=== PATIENT | male | born 1945 | race Caucasian/White ===

== ENCOUNTER → 2016-09-05 | Outpatient (CLI) | payer MEDICARE ==
[2016-09-05 17:20] LABS: Blood Urea Nitrogen 23 mg/dL (9-20); Non-African American GFR(MDRD) >60 (>60 ml/min/1.73 sqM)
--- NOTE | 2016-09-05 20:44 | CT ---
EXAMINATION TYPE: CT chest wo/w con DATE OF EXAM: 09/05/2016 COMPARISON: 05/05/2014 HISTORY: 70-year-old male complains of new onset difficulty breathing. Patient has a history of mant le cell lymphoma. TECHNIQUE: Contiguous axial scanning of the chest before and after the administration of 100 mL of Om nipaque 300. Coronal/sagittal reconstructions performed. CT DLP: 1156mGycm. Automatic exposure control utilized for a dose reduction. FINDINGS: The heart is normal size without pericardial effusion. Ascending aorta is ectatic at 3.7 cm with conventional arch vessel branching anatomy. Mild atheroscle rotic arch calcifications. No thoracic lymphadenopathy. Evaluation of the lungs shows mild diffuse bronchial wall thickening, similar to slightly increased a s compared to prior exam. There is a tiny 4 mm groundglass nodule in the right lower lobe axial image 36. No consolidation or pleural effusion. Tiny hiatal hernia. Stable 1.5 cm cyst in the left hepatic dome. Small layering calculi within the nondistended gallbladd er. Otherwise, visualized upper abdomen shows no gross abnormality. Bones: Endplate spondylosis mid to lower thoracic spine. Degenerative disc disease lower thoracic spi ne. No osseous destructive process. IMPRESSION: 1. Tiny 4 mm groundglass focus in the right lower lobe suggests a small nonspecific area of inflammat ion. No infiltrate seen. 2. Mild diffuse bronchial wall thickening could reflect bronchitis or chronic asthma. 3. Cholelithiasis incidentally seen.
== END | disposition home or self-care (01) ==
LOC: RADCTMAIN 16:40
PROVIDERS: ATTEND Internal Medicine Geriatric Medicine
DX: C83.19 Mantle cell lymphoma, extranodal and solid organ sites (principal); R91.8 Other nonspecific abnormal finding of lung field; J98.09 Other diseases of bronchus, not elsewhere classified
CPT/HCPCS: 82565; 84520; 71270; 36415; Q9967

== ENCOUNTER 2017-06-24 19:55 | Emergency (ER) | payer MEDICARE ==
[2017-06-24] MEDS ORDERED: IPRATROPIUM-ALBUTEROL 3 ML NEB INHALATION STA (20:15)
--- NOTE | 2017-06-24 20:19 | ED ---
SOB HPI - General Chief Complaint: Shortness of Breath Stated Complaint: GIRMA Time Seen by Provider: 06/24/17 20:00 Source: patient, family, RN notes reviewed Mode of arrival: ambulatory Limitations: no limitations - History of Present Illness Initial Comments: This is a 70-year-old male with a history of lymphoma status post last chemo 3 years ago history of COPD nonsmoker who states he's had intermittent episode of coughing and off last week sometime better sometimes worse he is on a regimen of doxycycline and steroids ALLERGY and his physician of arranged for the past several days ovaries getting worse not getting better he is coughing up anywhere from clear to green phlegm shortness of breath some exertional dyspnea no overt chest pain except for in the left anterior chest wall he can pinpoint area that hurts when he pushes on it. No nausea vomiting abdominal pain or other symptoms reported at this time. MD Complaint: shortness of breath, cough - Related Data Home Medications Medication Instructions Recorded Confirmed ALPRAZolam [Xanax] 0.25 mg PO HS PRN 01/12/14 06/24/17 Meloxicam 15 mg PO DAILY 01/12/14 06/24/17 Albuterol Inhaler [Ventolin 1 - 2 puff INHALATION RT-QID PRN 06/24/17 06/24/17 Inhaler] Budesonide/Formoterol Fumarate 2 puff INHALATION BID 06/24/17 06/24/17 [Symbicort 160-4.5 Mcg Inhaler] Cholecalciferol (Vitamin D3) 2,000 unit PO DAILY 06/24/17 06/24/17 [Vitamin D3] Glucosam/Amador-Msm1/C/Julio/Bosw 1 tab PO DAILY 06/24/17 06/24/17 [Glucosamine-Chondroitin Tablet] Metoprolol Tartrate [Lopressor] 25 mg PO BID 06/24/17 06/24/17 Multivit-Min/FA/Lycopen/Lutein 1 tab PO DAILY 06/24/17 06/24/17 [Centrum Silver Men Tablet] Previous Rx's Medication Instructions Recorded Ipratropium/Albuterol Sulfate 1 puff INHALATION QID #1 inhaler 06/25/17 [Combivent Respimat Inhaler] methylPREDNISolone Dose Pack 4 mg PO DIRECTED #21 package 06/25/17 [Medrol Dose Pack] Allergies Allergy/AdvReac Type Severity Reaction Status Date / Time Penicillins Allergy Severe Rash/Hives Verified 06/24/17 20:23 benzonatate Allergy Dyspnea Verified 06/24/17 20:23 [From Harper Yanez] Review of Systems ROS Statement: Those systems with pertinent positive or pertinent negative responses have been documented in the HPI. ROS Other: All systems not noted in ROS Statement are negative. Past Medical History Past Medical History: Atrial Fibrillation, Cancer, COPD, Osteoarthritis (OA) Additional Past Medical History / Comment(s): lymphoma, History of Any Multi-Drug Resistant Organisms: None Reported Past Surgical History: Hernia Repair Past Psychological History: No Psychological Hx Reported Smoking Status: Never smoker Past Alcohol Use History: Occasional Past Drug Use History: None Reported General Exam - General Exam Comments Initial Comments: This is a well-developed well-nourished awake alert oriented times 3 male Limitations: no limitations General appearance: alert, in no apparent distress Head exam: Present: atraumatic, normocephalic, normal inspection Eye exam: Present: normal appearance, PERRL, EOMI. Absent: scleral icterus, conjunctival injection, periorbital swelling ENT exam: Present: normal exam, mucous membranes moist Neck exam: Present: normal inspection. Absent: tenderness, meningismus, lymphadenopathy Respiratory exam: Present: chest wall tenderness (Tennis palpation along the anterior lateral left ribs no step-off or crepitation no lesions noted.), decreased breath sounds. Absent: respiratory distress, wheezes, rales, rhonchi , stridor Cardiovascular Exam: Present: regular rate, normal rhythm, normal heart sounds. Absent: systolic murmur, diastolic murmur, rubs, gallop, clicks GI/Abdominal exam: Present: soft, normal bowel sounds. Absent: distended, tenderness, guarding, rebound, rigid Extremities exam: Present: normal inspection, full ROM, normal capillary refill. Absent: tenderness, pedal edema, joint swelling, calf tenderness Back exam: Present: normal inspection Neurological exam: Present: alert, oriented X3, CN II-XII intact Psychiatric exam: Present: normal affect, normal mood Skin exam: Present: warm, dry, intact, normal color. Absent: rash Course Vital Signs 06/24/17 06/24/17 06/24/17 19:57 20:50 20:56 Temperature 96.8 F L Pulse Rate 105 H 101 H 100 Respiratory 24 Rate Blood Pressure 130/60 O2 Sat by Pulse 98 Oximetry 06/24/17 06/25/17 22:21 00:07 Temperature 97.1 F L Pulse Rate 86 74 Respiratory 18 18 Rate Blood Pressure 113/74 106/59 O2 Sat by Pulse 96 99 Oximetry Medical Decision Making - Medical Decision Making The patient was feeling improved no evidence of infectious process at this time he will be discharged on steroids and Combivent as this seemed to help more than the straight ordered Ventolin - Lab Data Result diagrams: 06/24/17 20:36 06/24/17 20:36 Lab Results 06/24/17 06/24/17 06/24/17 Range/Units 20:36 20:36 20:36 WBC 14.4 H (3.8-10.6) k/uL RBC 4.65 (4.30-5.90) m/uL Hgb 13.6 (13.0-17.5) gm/dL Hct 41.0 (39.0-53.0) % MCV 88.2 (80.0-100.0) fL MCH 29.3 (25.0-35.0) pg MCHC 33.2 (31.0-37.0) g/dL RDW 13.7 (11.5-15.5) % Plt Count 220 (150-450) k/uL Neutrophils % 76 % Lymphocytes % 15 % Monocytes % 5 % Eosinophils % 2 % Basophils % 0 % Neutrophils # 10.9 H (1.3-7.7) k/uL Lymphocytes # 2.1 (1.0-4.8) k/uL Monocytes # 0.7 (0-1.0) k/uL Eosinophils # 0.3 (0-0.7) k/uL Basophils # 0.1 (0-0.2) k/uL PT (9.0-12.0) sec INR (<1.2) APTT (22.0-30.0) sec D-Dimer (<0.60) mg/L FEU Sodium 138 (137-145) mmol/L Potassium 4.5 (3.5-5.1) mmol/L Chloride 102 (98-107) mmol/L Carbon Dioxide 24 (22-30) mmol/L Anion Gap 12 mmol/L BUN 25 H (9-20) mg/dL Creatinine 1.36 H (0.66-1.25) mg/dL Est GFR (CKD-EPI)AfAm 61 (>60 ml/min/1.73 sqM) Est GFR (CKD-EPI)NonAf 53 (>60 ml/min/1.73 sqM) Glucose 121 H (74-99) mg/dL Calcium 9.2 (8.4-10.2) mg/dL Magnesium 2.0 (1.6-2.3) mg/dL Total Bilirubin 0.6 (0.2-1.3) mg/dL AST 57 (17-59) U/L ALT 62 (21-72) U/L Alkaline Phosphatase 109 (38-126) U/L Total Creatine Kinase 70 (55-170) U/L CK-MB (CK-2) 0.5 (0.0-2.4) ng/mL CK-MB (CK-2) Rel Index 0.7 Troponin I <0.012 (0.000-0.034) ng/mL NT-Pro-B Natriuret Pep pg/mL Total Protein 6.3 (6.3-8.2) g/dL Albumin 3.9 (3.5-5.0) g/dL Influenza Type A RNA (Not Detectd) Influenza Type B (PCR) (Not Detectd) 06/24/17 06/24/17 06/24/17 Range/Units 20:36 20:36 20:36 WBC (3.8-10.6) k/uL RBC (4.30-5.90) m/uL Hgb (13.0-17.5) gm/dL Hct (39.0-53.0) % MCV (80.0-100.0) fL MCH (25.0-35.0) pg MCHC (31.0-37.0) g/dL RDW (11.5-15.5) % Plt Count (150-450) k/uL Neutrophils % % Lymphocytes % % Monocytes % % Eosinophils % % Basophils % % Neutrophils # (1.3-7.7) k/uL Lymphocytes # (1.0-4.8) k/uL Monocytes # (0-1.0) k/uL Eosinophils # (0-0.7) k/uL Basophils # (0-0.2) k/uL PT 9.4 (9.0-12.0) sec INR 0.9 (<1.2) APTT 21.4 L (22.0-30.0) sec D-Dimer 2.37 H (<0.60) mg/L FEU Sodium (137-145) mmol/L Potassium (3.5-5.1) mmol/L Chloride (98-107) mmol/L Carbon Dioxide (22-30) mmol/L Anion Gap mmol/L BUN (9-20) mg/dL Creatinine (0.66-1.25) mg/dL Est GFR (CKD-EPI)AfAm (>60 ml/min/1.73 sqM) Est GFR (CKD-EPI)NonAf (>60 ml/min/1.73 sqM) Glucose (74-99) mg/dL Calcium (8.4-10.2) mg/dL Magnesium (1.6-2.3) mg/dL Total Bilirubin (0.2-1.3) mg/dL AST (17-59) U/L ALT (21-72) U/L Alkaline Phosphatase (38-126) U/L Total Creatine Kinase (55-170) U/L CK-MB (CK-2) (0.0-2.4) ng/mL CK-MB (CK-2) Rel Index Troponin I (0.000-0.034) ng/mL NT-Pro-B Natriuret Pep 142 pg/mL Total Protein (6.3-8.2) g/dL Albumin (3.5-5.0) g/dL Influenza Type A RNA Not Detected (Not Detectd) Influenza Type B (PCR) Not Detected (Not Detectd) - Radiology Data Radiology results: report reviewed (I did review the imaging and report no evidence of PE or infiltrate), image reviewed Disposition Clinical Impression: Acute exacerbation of chronic obstructive airways disease Disposition: HOME SELF-CARE Condition: Good Instructions: COPD (Chronic Obstructive Pulmonary Disease) (ED) Prescriptions: Ipratropium/Albuterol Sulfate [Combivent Respimat Inhaler] 1 puff INHALATION QID #1 inhaler methylPREDNISolone Dose Pack [Medrol Dose Pack] 4 mg PO DIRECTED #21 package Is patient prescribed a controlled substance at d/c from ED?: No Referrals: Hemanth Meza MD [Primary Care Provider] - 1-2 days
[2017-06-24 20:48] LABS: Basophils # (A) 0.1 k/uL (0-0.2); Basophils % (A) 0 %; Eosinophils # (A) 0.3 k/uL (0-0.7); Eosinophils % (A) 2 %; HGB 13.6 gm/dL (13.0-17.5); Lymphocytes # (A) 2.1 k/uL (1.0-4.8); Lymphocytes % (A) 15 %; MCH 29.3 pg (25.0-35.0); MCHC 33.2 g/dL (31.0-37.0); MCV 88.2 fL (80.0-100.0); Mean Platelet Volume 9.6; Monocytes # (A) 0.7 k/uL (0-1.0); Monocytes % (A) 5 %; Neutrophils # (A) 10.9 k/uL (1.3-7.7); Neutrophils % (A) 76 %; Platelet Count 220 k/uL (150-450); RBC 4.65 m/uL (4.30-5.90); RDW 13.7 % (11.5-15.5); WBC 14.4 k/uL (3.8-10.6)
[2017-06-24 20:58] LABS: Albumin 3.9 g/dL (3.5-5.0); Calcium 9.2 mg/dL (8.4-10.2); Potassium 4.5 mmol/L (3.5-5.1); Total Bilirubin 0.6 mg/dL (0.2-1.3); Total Protein 6.3 g/dL (6.3-8.2)
[2017-06-24 21:04] LABS: Creatine Kinase 70 U/L (55-170)
[2017-06-24 21:16] LABS: INR 0.9 (<1.2); Partial Thromboplastin Time 21.4 sec (22.0-30.0); Prothrombin Time 9.4 sec (9.0-12.0)
[2017-06-24 21:17] LABS: Creatine Kinase MB 0.5 ng/mL (0.0-2.4); Troponin I <0.012 ng/mL (0.000-0.034)
[2017-06-24 21:19] LABS: D-Dimer 2.37 mg/L FEU (<0.60)
--- NOTE | 2017-06-24 21:24 | XR ---
EXAMINATION TYPE: XR chest 2V DATE OF EXAM: 06/24/2017 COMPARISON: Chest x-ray December 20, 2015. CT chest September 05, 2016 HISTORY: History of COPD with difficulty in breathing TECHNIQUE: Frontal and lateral views of the chest are obtained. FINDINGS: There is mild underlying emphysematous change without suspicious air space opacity, pleural effusion, or pneumothorax seen. The cardiac silhouette size is within nor mal limits. The osseous structures are demineralized. Multilevel spurring in the spine is present. IMPRESSION: Chronic emphysematous change without acute pulmonary process.
[2017-06-24] MEDS ORDERED: SODIUM CHLORIDE 0.9% 1,000 ML IV STA (22:08)
[2017-06-24] MEDS ORDERED: RX INFO: IV CONTRAST WAS GIVEN 1 EACH MISC MISCELLANE PRN (22:08)
[2017-06-24 22:22] VITALS: RESP 18
--- NOTE | 2017-06-24 22:52 | CT ---
EXAMINATION TYPE: CT angio chest DATE OF EXAM: 06/24/2017 10:42 PM COMPARISON: 06/09/2013 HISTORY: SOB and elevated D-dimer. CT DLP: 397.4 mGycm Automated exposure control for dose reduction was used. CONTRAST: CTA scan of the thorax is performed with IV Contrast, patient injected with 78ml mL of Isovue 370, pu lmonary embolism protocol. There are 3-D post processed images.. FINDINGS: The lungs are clear of infiltrate. There is no evidence of a pulmonary mass. There is no pleural effu sesar. Thoracic aorta shows mild atheromatous change. Heart size is normal. There is no pericardial ef fusion. There is normal contrast opacification of the pulmonary arteries. I see no filling defect. There is n o evidence of aortic aneurysm or dissection. There is minimal atheromatous change in the thoracic aor ta. Ascending aorta measures 3.6 cm. There is spurring in the thoracic spine. IMPRESSION: NO EVIDENCE OF PULMONARY EMBOLISM. NO ADVERSE CHANGE COMPARED TO OLD EXAM.
[2017-06-25 00:09] VITALS: BP 106/59; PULSE 74; TEMP 97.1
[2017-06-25] MEDS ORDERED: methylPREDNISolone SOD SUCCI 125 MG/2 ML VIAL IV STA (00:14)
== END 2017-06-25 00:52 | disposition home or self-care (01) ==
LOC: EC 19:55
DX: J44.1 Chronic obstructive pulmonary disease with (acute) exacerbation (principal); M19.90 Unspecified osteoarthritis, unspecified site; Z85.72 Personal history of non-Hodgkin lymphomas; Z79.1 Long term (current) use of non-steroidal anti-inflammatories (NSAID); Z79.51 Long term (current) use of inhaled steroids; Z79.899 Other long term (current) drug therapy; Z88.0 Allergy status to penicillin; Z88.8 Allergy status to other drugs, medicaments and biological substances
CPT/HCPCS: 99285; 96374; 96361 ×2; 36415; 94640; 93005; 85379; 83880; 80053; 82550; 82553; 83735; 84484; 85025; 85610; 85730; 87040; 87502; 71046; 71275; J2930; Q9967

== ENCOUNTER → 2017-09-20 | Outpatient (CLI) | payer MEDICARE ==
--- NOTE | 2017-09-22 15:02 | CT ---
EXAMINATION TYPE: CT ChestAbdPelvis w con DATE OF EXAM: 09/20/2017 COMPARISON: 06/24/[address] CT ang[address] chest [address] CT chest dated 09/05/2016 HISTORY: Follow up for lymphoma. CT DLP: 1672 mGycm. Automated Exposure Control for Dose Reduction was Utilized. CONTRAST: CT scan of the thorax, abdomen and pelvis is performed with IV Contrast, patient injected with 100ml mL of Isovue M300. FINDINGS: LUNGS: The lungs are grossly clear, there is no concerning parenchymal mass or nodule identified. T here is no pleural effusion or pneumothorax seen. The tracheobronchial tree is patent. MEDIASTINUM: There are no greater than 1 cm hilar or mediastinal lymph nodes. No pericardial effusi on is seen. Very small hiatal hernia is noted. LIVER/GB: There is a 1.5 cm hepatic cyst within the left lobe on series 2 image 56. Remainder of the liver is unremarkable. Gallstones are noted layering within the gallbladder body and neck. No right u pper quadrant fat stranding is seen. No significant intrahepatic or extrahepatic biliary ductal dilat ation. PANCREAS: There is moderate pancreatic parenchymal atrophy without ductal dilatation or abnormal enha ncement. SPLEEN: No significant abnormality is seen. No splenomegaly. ADRENALS: No nodularity or thickening. KIDNEYS: A 4.0 cm fluid attenuated left renal cyst is seen. Multiple left-sided renal sinus cysts are also seen. 2 small to accurately characterize right superior pole posterior medial cortical 7 mm rina al lesion is noted. No hydronephrosis bilaterally. BOWEL: No large or small bowel dilatation. Moderate amount retained colonic stool is noted. GENITAL ORGANS: No gross abnormality seen. LYMPH NODES: No greater than 1cm abdominal or pelvic lymph nodes are appreciated. OSSEOUS STRUCTURES: There is a 7 mm nonspecific sclerotic focus within the right acetabulum. Addition ally within the left iliac bone there are 2 sclerotic lesions measuring 0.7 cm and 9 mm both on serie s 2 image 93. Multilevel mild to moderate degenerative changes of the spine are also noted. No other suspicious osseous lesions are seen. OTHER: Subcentimeter fat attenuated probable lipoma is seen within the right lateral abdominal wall m usculature. IMPRESSION: 1. No evidence of adenopathy within the chest, abdomen, or pelvis to indicate recurrence of disease. 2. Nonspecific sclerotic foci within the left hemipelvis and right acetabulum. If there is clinical c oncern bone scan could be performed to evaluate for focal uptake.
== END | disposition home or self-care (01) ==
LOC: RADCTMAIN 15:40
PROVIDERS: ATTEND Internal Medicine Hematology & Oncology
DX: C83.18 Mantle cell lymphoma, lymph nodes of multiple sites (principal); R93.7 Abnormal findings on diagnostic imaging of other parts of musculoskeletal system; Z88.0 Allergy status to penicillin
CPT/HCPCS: 82565; 84520; 71260; 74177; 36415; Q9967

== ENCOUNTER 2017-10-02 09:59 | Day surgery (SDC) | payer MEDICARE ==
[2017-09-30 09:55] VITALS: BMI 28.3
[~2017-10-02 09:59] MED LIST: LACTATED RINGERS 1,000 ML IV SCH; LIDOCAINE 1% 20 ML VIAL (10MG/ML) FOR IV START INTRADERMA PRN; MIDAZOLAM 2 MG/2 ML VIAL IV PRN
[2017-10-02 11:50] VITALS: RESP 16; TEMP 97.6
[2017-10-02] MEDS ORDERED: LACTATED RINGERS 1,000 ML IV ONE (11:56)
[2017-10-02] MEDS ORDERED: LIDOCAINE 1% INJ 10MG/ML (20 ML MDV) ONE (11:58)
[2017-10-02] MEDS ORDERED: PROPOFOL 10 MG/ML 20 ML VIAL IV ONE (11:58)
--- NOTE | 2017-10-02 12:22 | P.PCN ---
Date of Procedure: 10/02/17 Procedure(s) Performed: Brief history: Patient is a pleasant 71-year-old white male, scheduled for an elective upper endoscopy as well as colonoscopy as a part of evaluation of abdominal discomfort , abdominal bloating and screening for colorectal neoplasia. Procedure performed: Esophagogastroduodenoscopy with biopsy Colonoscopy Preoperative diagnosis: Abdominal pain/abdominal bloating Screening for colon cancer Anesthesia: MAC Procedure: After informed consent was obtained from the patient was brought into the endoscopy unit and IV sedation was administered by anesthesia under continuous monitoring. Initially upper endoscopy was done. The Olympus GF 160 video endoscope was inserted inserted into the mouth and esophagus intubated without any difficulty and was gradually advanced into the stomach and duodenum and carefully examined. The bulb and second part of the duodenum appeared normal. Biopsies were done from the duodenum to rule out celiac disease. The scope was then withdrawn into the stomach adequately insufflated with air and upon careful examination the antrum and body, cardia and fundus appeared normal. The scope was then withdrawn into the esophagus. The GE junction was located at 40 cm to the incisors. Small sliding Hiatal hernia noted. It appeared regular with superficial erosions consistent with LA grade a reflux esophagitis. Rest of the esophagus appeared normal. Patient tolerated the procedure well. At this time the patient continued to remain sedation. Initial digital rectal examination was normal. Olympus CF 160 video colonoscope was then inserted into the rectum and gradually advanced to the cecum without any difficulty. Careful examination was performed as the scope was gradually being withdrawn. The prep was excellent. The cecum, ascending colon, transverse colon, descending colon, sigmoid colon and rectum appeared normal. Retroflexion was performed in the rectum and small internal hemorrhoids were noted. Patient tolerated the procedure well. Impression: 1. Upper Endoscopy revealed small hiatal hernia and LA grade B reflux esophagitis 2. Colonoscopy revealed small internal hemorrhoids but no evidence of colorectal neoplasia Recommendations: Findings of this examination were discussed with the patient as well as his family. He was advised to follow with the biopsy results. He can have a repeat colonoscopy in 10 years.
[2017-10-02 12:57] VITALS: BP 123/79; PULSE 57
== END 2017-10-02 13:26 | disposition home or self-care (01) ==
LOC: ORWHC2ENDO 09:59
PROVIDERS: ATTEND Internal Medicine Gastroenterology
DX: Z12.11 Encounter for screening for malignant neoplasm of colon (principal); K29.50 Unspecified chronic gastritis without bleeding; K44.9 Diaphragmatic hernia without obstruction or gangrene; K21.0 Gastro-esophageal reflux disease with esophagitis; K64.8 Other hemorrhoids; I48.91 Unspecified atrial fibrillation; J44.9 Chronic obstructive pulmonary disease, unspecified; F41.9 Anxiety disorder, unspecified; Z79.51 Long term (current) use of inhaled steroids; Z79.899 Other long term (current) drug therapy
CPT/HCPCS: 88305; 43239; J2001; J2704; G0121

== ENCOUNTER 2017-10-26 17:35 | Emergency (ER) | payer MEDICARE ==
[2017-10-26 17:46] VITALS: RESP 18
[2017-10-26] MEDS ORDERED: SODIUM CHLORIDE 0.9% 1,000 ML IV STA (18:21)
--- NOTE | 2017-10-26 18:27 | ED ---
Abdominal Pain HPI - General Chief Complaint: Abdominal Pain Stated Complaint: abd pain Time Seen by Provider: 10/26/17 18:10 Source: patient Mode of arrival: ambulatory Limitations: no limitations - History of Present Illness Initial Comments: 71-year-old male patient with past medical history significant for Mantle Cell Lymphoma s/p chemo and bone marrow transplant in 2013 presents to the emergency department for evaluation of right lower quadrant abdominal pain. Patient states he has had the pain for the last week. Patient states that it is progressively getting worse. States he has had no appetite and did have a temperature 99.7F 3 days ago. Patient states he has been having some constipation but is relieved with stool softeners. He denies any hematochezia or melena. Denies nausea or vomiting. Denies any hematuria, dysuria, urinary frequency, urinary urgency. Patient denies any recent rash, shortness breath, chest pain, back pain, numbness, tingling, dizziness, weakness, headache, visual changes, or any other complaints. - Related Data Home Medications Medication Instructions Recorded Confirmed ALPRAZolam [Xanax] 0.25 mg PO HS PRN 01/12/14 10/02/17 Meloxicam 7.5 mg PO DAILY 01/12/14 10/02/17 Albuterol Inhaler [Ventolin 1 - 2 puff INHALATION RT-QID PRN 06/24/17 10/02/17 Inhaler] Budesonide/Formoterol Fumarate 2 puff INHALATION BID PRN 06/24/17 10/02/17 [Symbicort 160-4.5 Mcg Inhaler] Cholecalciferol (Vitamin D3) 2,000 unit PO DAILY 06/24/17 10/02/17 [Vitamin D3] Glucosam/Amador-Msm1/C/Julio/Bosw 1 tab PO DAILY 06/24/17 10/02/17 [Glucosamine-Chondroitin Tablet] Multivit-Min/FA/Lycopen/Lutein 1 tab PO DAILY 06/24/17 10/02/17 [Centrum Silver Men Tablet] Ipratropium/Albuterol Sulfate 1 puff INHALATION QID PRN 09/30/17 10/02/17 [Combivent Respimat Inhaler] Allergies Allergy/AdvReac Type Severity Reaction Status Date / Time Penicillins Allergy Severe Rash/Hives Verified 10/26/17 17:46 benzonatate Allergy Dyspnea Verified 10/26/17 17:46 [From Harper Yanez] Review of Systems ROS Statement: Those systems with pertinent positive or pertinent negative responses have been documented in the HPI. ROS Other: All systems not noted in ROS Statement are negative. Past Medical History Past Medical History: Atrial Fibrillation, Cancer, COPD, Osteoarthritis (OA) Additional Past Medical History / Comment(s): lymphoma,basal cell carcinoma History of Any Multi-Drug Resistant Organisms: None Reported Past Surgical History: Hernia Repair Additional Past Surgical History / Comment(s): removal of skin cancer Past Anesthesia/Blood Transfusion Reactions: No Reported Reaction Past Psychological History: No Psychological Hx Reported Smoking Status: Never smoker Past Alcohol Use History: Occasional Past Drug Use History: None Reported - Past Family History Brother(s) Family Medical History: Cancer General Exam Limitations: no limitations General appearance: alert, in no apparent distress, other (This is a well- developed, well-nourished adult male patient in no acute distress. Vital signs upon presentation are temperature 97.7F, pulse 70, respirations 18, blood pressure 123/54, pulse ox 99% on room air.) Eye exam: Present: normal appearance, PERRL, EOMI. Absent: scleral icterus, conjunctival injection, periorbital swelling ENT exam: Present: normal exam, normal oropharynx, mucous membranes moist Respiratory exam: Present: normal lung sounds bilaterally. Absent: respiratory distress, wheezes, rales, rhonchi, stridor Cardiovascular Exam: Present: regular rate, normal rhythm, normal heart sounds. Absent: systolic murmur, diastolic murmur, rubs, gallop, clicks GI/Abdominal exam: Present: soft, tenderness (Right upper quadrant, Mid epigastric, and left upper quadrant tenderness), normal bowel sounds. Absent: distended, guarding, rebound, rigid Neurological exam: Present: alert, oriented X3, CN II-XII intact Psychiatric exam: Present: normal affect, normal mood Skin exam: Present: warm, dry, intact, normal color. Absent: rash Course Vital Signs 10/26/17 10/26/17 17:44 21:55 Temperature 97.7 F 97 F L Pulse Rate 70 73 Respiratory 18 18 Rate Blood Pressure 123/54 119/60 O2 Sat by Pulse 99 99 Oximetry Medical Decision Making - Medical Decision Making 71-year-old male patient presents the emergency department today for evaluation of right-sided abdominal pain. Physical examination did reveal upper abdominal tenderness. Labs reviewed and showed a white blood cell count at 12.5, hemoglobin 12.4, AST of 90, a LT 98, alkaline phosphatase of 187. Urinalysis was normal. Given patient's history of lymphoma and nature of his abdominal pain we did perform CT of the abdomen and pelvis with contrast. CT did show some fluid filled small bowel loops and liquid stool in the colon which could be related to an enteritis. We did discuss diagnosis and enteritis and probable progression of the illness. There is no evidence for cholecystitis on the CAT scan. I did discuss findings and results with the patient. He is instructed to follow up with GI specialty Dr. Monaco for further evaluation of his liver enzymes. He is instructed to return here immediately for any new, worsening, or concerning symptoms. Return parameters were discussed in detail. He verbalizes understanding and agrees with this plan. - Lab Data Result diagrams: 10/26/17 18:44 10/26/17 18:44 Lab Results 10/26/17 10/26/17 10/26/17 Range/Units 18:44 18:44 18:44 WBC 12.5 H (3.8-10.6) k/uL RBC 4.40 (4.30-5.90) m/uL Hgb 12.4 L (13.0-17.5) gm/dL Hct 39.1 (39.0-53.0) % MCV 88.8 (80.0-100.0) fL MCH 28.1 (25.0-35.0) pg MCHC 31.7 (31.0-37.0) g/dL RDW 13.4 (11.5-15.5) % Plt Count 250 (150-450) k/uL Neutrophils % 64 % Lymphocytes % 16 % Monocytes % 4 % Eosinophils % 12 % Basophils % 0 % Neutrophils # 8.1 H (1.3-7.7) k/uL Lymphocytes # 2.0 (1.0-4.8) k/uL Monocytes # 0.5 (0-1.0) k/uL Eosinophils # 1.5 H (0-0.7) k/uL Basophils # 0.0 (0-0.2) k/uL Sodium 137 (137-145) mmol/L Potassium 4.4 (3.5-5.1) mmol/L Chloride 101 (98-107) mmol/L Carbon Dioxide 26 (22-30) mmol/L Anion Gap 10 mmol/L BUN 19 (9-20) mg/dL Creatinine 1.00 (0.66-1.25) mg/dL Est GFR (CKD-EPI)AfAm 88 (>60 ml/min/1.73 sqM) Est GFR (CKD-EPI)NonAf 77 (>60 ml/min/1.73 sqM) Glucose 78 (74-99) mg/dL Plasma Lactic Acid Evan 0.7 (0.7-2.0) mmol/L Calcium 8.9 (8.4-10.2) mg/dL Total Bilirubin 0.5 (0.2-1.3) mg/dL AST 90 H (17-59) U/L ALT 98 H (21-72) U/L Alkaline Phosphatase 187 H (38-126) U/L Total Protein 6.5 (6.3-8.2) g/dL Albumin 3.5 (3.5-5.0) g/dL Amylase 45 (30-110) U/L Lipase 63 (23-300) U/L Urine Color Urine Appearance (Clear) Urine pH (5.0-8.0) Ur Specific Valentine (1.001-1.035) Urine Protein (Negative) Urine Glucose (UA) (Negative) Urine Ketones (Negative) Urine Blood (Negative) Urine Nitrite (Negative) Urine Bilirubin (Negative) Urine Urobilinogen (<2.0) mg/dL Ur Leukocyte Esterase (Negative) 10/26/17 Range/Units 18:44 WBC (3.8-10.6) k/uL RBC (4.30-5.90) m/uL Hgb (13.0-17.5) gm/dL Hct (39.0-53.0) % MCV (80.0-100.0) fL MCH (25.0-35.0) pg MCHC (31.0-37.0) g/dL RDW (11.5-15.5) % Plt Count (150-450) k/uL Neutrophils % % Lymphocytes % % Monocytes % % Eosinophils % % Basophils % % Neutrophils # (1.3-7.7) k/uL Lymphocytes # (1.0-4.8) k/uL Monocytes # (0-1.0) k/uL Eosinophils # (0-0.7) k/uL Basophils # (0-0.2) k/uL Sodium (137-145) mmol/L Potassium (3.5-5.1) mmol/L Chloride (98-107) mmol/L Carbon Dioxide (22-30) mmol/L Anion Gap mmol/L BUN (9-20) mg/dL Creatinine (0.66-1.25) mg/dL Est GFR (CKD-EPI)AfAm (>60 ml/min/1.73 sqM) Est GFR (CKD-EPI)NonAf (>60 ml/min/1.73 sqM) Glucose (74-99) mg/dL Plasma Lactic Acid Evan (0.7-2.0) mmol/L Calcium (8.4-10.2) mg/dL Total Bilirubin (0.2-1.3) mg/dL AST (17-59) U/L ALT (21-72) U/L Alkaline Phosphatase (38-126) U/L Total Protein (6.3-8.2) g/dL Albumin (3.5-5.0) g/dL Amylase (30-110) U/L Lipase (23-300) U/L Urine Color Yellow Urine Appearance Clear (Clear) Urine pH 5.5 (5.0-8.0) Ur Specific Valentine 1.012 (1.001-1.035) Urine Protein Negative (Negative) Urine Glucose (UA) Negative (Negative) Urine Ketones Negative (Negative) Urine Blood Negative (Negative) Urine Nitrite Negative (Negative) Urine Bilirubin Negative (Negative) Urine Urobilinogen <2.0 (<2.0) mg/dL Ur Leukocyte Esterase Negative (Negative) - Radiology Data Radiology results: report reviewed, image reviewed CT abdomen and pelvis with contrast was obtained. Report was reviewed in its entirety. Impression by Dr. Bullock shows prominent fluid-filled distal ileal small bowel loops with liquid stool in the right side of the colon. Correlate for enteritis. A couple small gallstones measuring up to [address] evidence for acute cholecystitis. Disposition Clinical Impression: Abdominal pain, Enteritis Disposition: HOME SELF-CARE Condition: Good Instructions: Abdominal Pain (ED), Enteritis (ED) Additional Instructions: Increase fluids. Guadalupe diet as tolerated. Follow-up with price changer for further evaluation. Follow up with her primary care physician for further evaluation. Return here immediately for any new, worsening, or concerning symptoms. Is patient prescribed a controlled substance at d/c from ED?: No Referrals: Hemanth Meza MD [Primary Care Provider] - 1-2 days Miley Monaco MD [STAFF PHYSICIAN] - 1-2 days Time of Disposition: 21:40
[2017-10-26 18:59] LABS: Appearance,Urine Clear (Clear); Bilirubin,Urine Negative (Negative); Blood,Urine Negative (Negative); Color,Urine Yellow; Glucose,Urine (UA) Negative (Negative); Ketones,Urine Negative (Negative); Leukocyte Esterase,Urine Negative (Negative); Nitrite,Urine Negative (Negative); PH, Urine 5.5 (5.0-8.0); Protein,Urine Negative (Negative); Specific Gravity,Urine 1.012 (1.001-1.035); Urobilinogen,Urine <2.0 mg/dL (<2.0)
[2017-10-26 19:01] LABS: Basophils % (A) 0 %; Eosinophils # (A) 1.5 k/uL (0-0.7); Eosinophils % (A) 12 %; HCT 39.1 % (39.0-53.0); HGB 12.4 gm/dL (13.0-17.5); Lymphocytes % (A) 16 %; MCH 28.1 pg (25.0-35.0); MCHC 31.7 g/dL (31.0-37.0); MCV 88.8 fL (80.0-100.0); Mean Platelet Volume 9.5; Monocytes # (A) 0.5 k/uL (0-1.0); Monocytes % (A) 4 %; Neutrophils # (A) 8.1 k/uL (1.3-7.7); Neutrophils % (A) 64 %; Platelet Count 250 k/uL (150-450); RDW 13.4 % (11.5-15.5); WBC 12.5 k/uL (3.8-10.6)
[2017-10-26 19:09] LABS: Albumin 3.5 g/dL (3.5-5.0); Calcium 8.9 mg/dL (8.4-10.2); Potassium 4.4 mmol/L (3.5-5.1); Total Bilirubin 0.5 mg/dL (0.2-1.3); Total Protein 6.5 g/dL (6.3-8.2)
--- NOTE | 2017-10-26 20:14 | CT ---
EXAMINATION TYPE: CT abdomen pelvis w con DATE OF EXAM: 10/26/2017 COMPARISON: 09/20/2017 and 12/06/2012 HISTORY: 71-year-old male Right sided abdominal pain, upper area TECHNIQUE: Contiguous axial scanning of the abdomen and pelvis following administration of 100 ml Iso alfonso 300 IV contrast. Delayed images through the kidneys and coronal/sagittal reconstructions perform ed. CT DLP: 1184.2 mGycm Automated exposure control for dose reduction was used. FINDINGS: Heart normal size without pericardial effusion. Lung bases clear without pleural effusion. Redemonstrated 1.2 cm hypodense lesion likely cyst in the left hepatic dome. No other focal liver les ion. Portal venous system is patent. No biliary ductal dilatation. A couple small gallstones measuring up to 6 mm. No abnormal gallbladder distention or wall thickening . Adrenal glands, right kidney, and spleen appear within normal limits. There is mild diffuse pancreati c atrophy with residual prominent island of glandular tissue at the pancreatic head region, unchanged from 2013. 4.4 cm posterior left renal cyst and parapelvic cysts in the left lower pole. No dilated small bowel, free fluid, or free air. Prominent fluid-filled ileal small bowel loops. Liquid stool within the cecum and additional liquid stool within the transverse colon. No pericolonic inflammatory change. Scattered prominent but nonenlarged 5 mm and smaller scattered mesenteric lymph nodes. Bladder urine distended. Prostate gland measures 4.7 cm wide. Pelvic phleboliths. Mildly patulous ing uinal canals. No abnormal fluid collection in the pelvis or pelvic lymphadenopathy. Mild atherosclerotic calcifications infrarenal abdominal aorta with ectatic right common iliac artery at 1.5 cm. Bones: Mild degenerative changes of the hips. Scattered bone islands in both hips. Redemonstrated scl erotic foci in the left iliac bone, unchanged from 2013, likely benign bone islands. Stable lucent le sesar L5 vertebral body probably hemangioma. Degenerative changes mid to lower lumbar spine and endpla te spondylosis lower thoracic spine. IMPRESSION: 1. PROMINENT FLUID-FILLED DISTAL ILEAL SMALL BOWEL LOOPS WITH LIQUID STOOL IN THE RIGHT SIDE OF THE C OLON. CORRELATE FOR ENTERITIS. 2. A COUPLE SMALL GALLSTONES MEASURING UP TO [address] EVIDENCE FOR ACUTE CHOLECYSTITIS.
[2017-10-26 21:55] VITALS: BP 119/60; PULSE 73; TEMP 97
== END 2017-10-26 21:56 | disposition home or self-care (01) ==
LOC: EC 17:35
DX: K52.9 Noninfective gastroenteritis and colitis, unspecified (principal); J44.9 Chronic obstructive pulmonary disease, unspecified; M19.90 Unspecified osteoarthritis, unspecified site; Z85.72 Personal history of non-Hodgkin lymphomas; Z88.0 Allergy status to penicillin; Z88.8 Allergy status to other drugs, medicaments and biological substances; Z79.51 Long term (current) use of inhaled steroids; Z79.899 Other long term (current) drug therapy
CPT/HCPCS: 36415; 80053; 82150; 83605; 83690; 85025; 81003; 74177; 99284; 96360; 96361 ×2; Q9967

== ENCOUNTER 2019-03-03 01:04 | Observation (INO) | payer MEDICARE ==
[2019-03-03] MEDS ORDERED: DILTIAZEM DRIP BOLUS FROM BAG 1 MG SOLN IV ONE (01:13)
--- NOTE | 2019-03-03 01:15 | ED ---
Arrhythmia/Palpitations HPI - General Stated Complaint: afib Time Seen by Provider: 03/03/19 01:13 - History of Present Illness Initial Comments: This patient is 73-year-old man with history of previous atrial fibrillation, who presents tonight with the concern that he has gone back in atrial fibrillation. The patient states that he had been treated for atrial fibrillation and had been in sinus rhythm for about the past 2 years. He had stopped taking his anticoagulant and the metoprolol that he had been using. The patient states that tonight he was watching a movie and began feeling malaise and generalized weakness. States that he checked his blood pressure and the monitor showed that his heart rate was above 150. The patient also feels lig htheaded when he stands. Patient denies chest pain or dyspnea. He states that over the past days to weeks, he has been having cough and congestion and had been taking doxycycline, prednisone and cold medication and felt that that may be contributing. MD Complaint: "heart racing", irregular heart beat -: hour(s) Context: occurred during rest Arrhythmia History: atrial fibrillation Associated Symptoms: near-syncope - Related Data Home Medications Medication Instructions Recorded Confirmed ALPRAZolam [Xanax] 0.25 mg PO TID PRN 01/12/14 03/08/19 Meloxicam 7.5 mg PO DAILY 01/12/14 03/08/19 Albuterol Inhaler [Ventolin Hfa 1 - 2 puff INHALATION RT-QID PRN 06/24/17 03/08/19 Inhaler] Budesonide/Formoterol Fumarate 2 puff INHALATION RT-BID PRN 06/24/17 03/08/19 [Symbicort 160-4.5 Mcg Inhaler] Glucosam/Amador-Msm1/C/Julio/Bosw 1 tab PO DAILY 06/24/17 03/08/19 [Glucosamine-Chondroitin Tablet] Acetaminophen Tab [Tylenol] 1,000 mg PO Q6HR PRN 03/03/19 03/08/19 Albuterol Nebulized [Ventolin 2.5 mg INHALATION RT-Q6H 03/03/19 03/08/19 Nebulized] Ascorbic Acid [Vitamin C] 1,000 mg PO DAILY 03/03/19 03/08/19 Cholecalciferol [Vitamin D3 (25 1,000 unit PO DAILY 03/03/19 03/08/19 Mcg = 1000 Iu)] Codeine Phosphate/Guaifenesin 10 ml PO Q4H PRN 03/03/19 03/08/19 [Guaiatussin AC Liquid] Fish Oil/Dha/Epa [Fish Oil 1,200 1 cap PO DAILY 03/03/19 03/08/19 mg Fish Oil] Gentle Iron 28 1 cap PO DAILY 03/03/19 03/08/19 Magnesium Gluconate 100mg 100 mg PO DAILY 03/03/19 03/08/19 Mucinex D 600-60 1 tab PO BID 03/03/19 03/08/19 Turmeric Root Extract [Turmeric] 500 mg PO DAILY 03/03/19 03/08/19 Tylenol Sinus And Headache 2 cap PO Q4H PRN 03/03/19 03/08/19 predniSONE See Taper PO DIRECTED 03/08/19 03/08/19 Previous Rx's Medication Instructions Recorded Apixaban [Eliquis] 5 mg PO BID #60 tab 03/05/19 Cefuroxime [Ceftin] 250 mg PO BID #14 tablet 03/05/19 Diltiazem Cd [Cardizem CD] 180 mg PO DAILY #30 cap.er.24h 03/05/19 Nystatin 100,000 Unit/ml Susp 5 ml PO QID #140 ml 03/05/19 [Mycostatin Oral Susp] Flecainide Acetate [Tambocor] 100 mg PO Q12HR #60 tab 03/10/19 Allergies Allergy/AdvReac Type Severity Reaction Status Date / Time Penicillins Allergy Severe Rash/Hives Verified 03/08/19 11:55 benzonatate AdvReac Dyspnea Verified 03/08/19 11:55 [From Harper Yanez] Review of Systems ROS Statement: Those systems with pertinent positive or pertinent negative responses have been documented in the HPI. ROS Other: All systems not noted in ROS Statement are negative. Constitutional: Reports: weakness. Denies: fever, chills ENT: Reports: congestion Respiratory: Reports: cough. Denies: dyspnea, wheezes, hemoptysis Cardiovascular: Reports: palpitations, syncope (Near-syncope). Denies: chest pain, orthopnea, edema Gastrointestinal: Denies: abdominal pain, nausea, vomiting, melena, hematochezia Genitourinary: Denies: dysuria, hematuria Musculoskeletal: Denies: back pain Skin: Denies: rash Neurological: Denies: headache, weakness Past Medical History Past Medical History: Atrial Fibrillation, Cancer, COPD, Osteoarthritis (OA) Additional Past Medical History / Comment(s): lymphoma,basal cell carcinoma History of Any Multi-Drug Resistant Organisms: None Reported Past Surgical History: Hernia Repair Additional Past Surgical History / Comment(s): removal of skin cancer Past Anesthesia/Blood Transfusion Reactions: No Reported Reaction Past Psychological History: No Psychological Hx Reported Smoking Status: Never smoker Past Alcohol Use History: Occasional Past Drug Use History: None Reported - Past Family History Brother(s) Family Medical History: Cancer Father Family Medical History: No Reported History Additional Family Medical History / Comment(s): Father was healthy and lived to be 95 yrs old. Mother Family Medical History: Vascular Disorder Additional Family Medical History / Comment(s): Mother at the age of 74 yrs from a ruptured aortic aneurysm. Son(s) Additional Family Medical History / Comment(s): Patient has 2 sons with no major medical problems. Patient doesn't have any sisters. General Exam General appearance: alert, in no apparent distress Head exam: Present: atraumatic, normocephalic Eye exam: Present: normal appearance. Absent: scleral icterus, conjunctival injection ENT exam: Present: normal oropharynx Neck exam: Present: normal inspection Respiratory exam: Present: normal lung sounds bilaterally, rhonchi. Absent: respiratory distress, wheezes, rales, stridor, accessory muscle use, decreased breath sounds Cardiovascular Exam: Present: tachycardia, irregular rhythm, normal heart sounds. Absent: systolic murmur, diastolic murmur, rubs, gallop GI/Abdominal exam: Present: soft. Absent: distended, tenderness, guarding, rebound, rigid Extremities exam: Present: normal inspection, normal capillary refill. Absent: pedal edema, calf tenderness Back exam: Present: normal inspection. Absent: CVA tenderness (R), CVA tenderness (L) Neurological exam: Present: alert Skin exam: Present: warm, dry, intact, normal color. Absent: rash Course Vital Signs 03/03/19 03/03/19 03/03/19 01:13 01:22 01:30 Temperature 97.5 F L Pulse Rate 170 H 189 H 91 Pulse Rate [ 178 H Apical] Pulse Rate [ Wire Walker ] Respiratory 18 18 18 Rate Blood Pressure 113/97 89/61 105/72 Blood Pressure [Right Arm] O2 Sat by Pulse 98 99 97 Oximetry 03/03/19 03/03/19 03/03/19 03:00 05:03 06:46 Temperature 97.8 F 98.5 F 97.4 F L Pulse Rate 64 55 L 58 L Pulse Rate [ Apical] Pulse Rate [ Wire Walker ] Respiratory 18 15 15 Rate Blood Pressure 93/64 104/62 98/62 Blood Pressure [Right Arm] O2 Sat by Pulse 96 97 97 Oximetry 03/03/19 03/03/19 03/03/19 09:05 09:21 12:00 Temperature 97.6 F 97.3 F L Pulse Rate Pulse Rate [ Apical] Pulse Rate [ 49 L 56 L 65 Wire Walker ] Respiratory 16 16 16 Rate Blood Pressure Blood Pressure 93/42 112/64 [Right Arm] O2 Sat by Pulse 97 97 Oximetry 03/03/19 03/03/19 03/03/19 16:44 16:50 17:16 Temperature 97.7 F Pulse Rate 65 68 80 Pulse Rate [ Apical] Pulse Rate [ Wire Walker ] Respiratory 18 Rate Blood Pressure 111/59 Blood Pressure [Right Arm] O2 Sat by Pulse 94 L Oximetry 03/03/19 03/03/19 03/03/19 18:06 19:44 19:52 Temperature Pulse Rate 74 81 78 Pulse Rate [ Apical] Pulse Rate [ Wire Walker ] Respiratory 18 Rate Blood Pressure 122/67 128/71 Blood Pressure [Right Arm] O2 Sat by Pulse 94 L 95 Oximetry 03/03/19 03/03/19 19:56 19:57 Temperature Pulse Rate 74 76 Pulse Rate [ Apical] Pulse Rate [ Wire Walker ] Respiratory Rate Blood Pressure Blood Pressure [Right Arm] O2 Sat by Pulse Oximetry - Reevaluation(s) Reevaluation #1: 03/03/19 01:43 The patient had a coughing episode and appears to have spontaneous he converted to sinus rhythm. Repeat 12-lead ECG, interpreted by myself shows what appears to be sinus rhythm with occasional supraventricular complex. Rate approximately 88 bpm. Waterman normal. Intervals normal. Normal QRS morphology. No acute ischemia. Interpreted as normal sinus rhythm. Reevaluation #2: 03/03/19 04:43 Patient's blood pressure does continue to be borderline hypotensive. Patient's lactate has normalized. On exam no evidence of hypovolemia/shock. From the patient's history he did take a dose of metoprolol prior to arrival here and suspect that this may be contributing to patient's blood pressure. EKG Findings - EKG Results: EKG: interpreted by GARRETT, normal axis, normal QRS - Dysrhythmias: Supraventricular dysrhythmia: atrial fibrillation (With rapid rate, approximately 170 bpm) - Blocks, Waterman, Hypertrophy, ST Abn: Repolarization changes or abnormalities: nonspecific abnormality, ST segment, and/or T wave Procedures - Sepsis Sepsis Focused Exam #1 Sepsis Focused Exam Date: 03/03/19 Sepsis Focused Exam Time: 04:45 Sepsis Focused Exam Complete: Yes Vital Signs & RN Notes Reviewed: Yes Capillary Refill: < 2 Seconds: Fingers Peripheral Pulses: Normal: Radial (R) Skin Color: Normal for Patient Respiratory Exam: rhonchi Cardiovascular Exam: regular rate, normal rhythm Medical Decision Making - Lab Data Result diagrams: 03/04/19 05:45 03/04/19 05:45 Lab Results 03/03/19 03/03/19 03/03/19 Range/Units 01:14 01:14 01:14 WBC 13.3 H (3.8-10.6) k/uL RBC 4.28 L (4.30-5.90) m/uL Hgb 12.6 L (13.0-17.5) gm/dL Hct 39.2 (39.0-53.0) % MCV 91.6 (80.0-100.0) fL MCH 29.6 (25.0-35.0) pg MCHC 32.3 (31.0-37.0) g/dL RDW 13.2 (11.5-15.5) % Plt Count 285 (150-450) k/uL Neutrophils % 87 % Lymphocytes % 8 % Monocytes % 3 % Eosinophils % 0 % Basophils % 0 % Neutrophils # 11.6 H (1.3-7.7) k/uL Lymphocytes # 1.0 (1.0-4.8) k/uL Monocytes # 0.5 (0-1.0) k/uL Eosinophils # 0.0 (0-0.7) k/uL Basophils # 0.1 (0-0.2) k/uL PT 9.6 (9.0-12.0) sec INR 0.9 (<1.2) APTT 23.2 (22.0-30.0) sec Sodium 136 L (137-145) mmol/L Potassium 3.9 (3.5-5.1) mmol/L Chloride 101 (98-107) mmol/L Carbon Dioxide 23 (22-30) mmol/L Anion Gap 12 mmol/L BUN 18 (9-20) mg/dL Creatinine 1.29 H (0.66-1.25) mg/dL Est GFR (CKD-EPI)AfAm 64 (>60 ml/min/1.73 sqM) Est GFR (CKD-EPI)NonAf 56 (>60 ml/min/1.73 sqM) Glucose 187 H (74-99) mg/dL Plasma Lactic Acid Evan (0.7-2.0) mmol/L Calcium 8.8 (8.4-10.2) mg/dL Magnesium 2.0 (1.6-2.3) mg/dL Total Bilirubin 0.6 (0.2-1.3) mg/dL AST 51 (17-59) U/L ALT 84 H (4-49) U/L Alkaline Phosphatase 193 H (38-126) U/L Troponin I (0.000-0.034) ng/mL NT-Pro-B Natriuret Pep pg/mL Total Protein 6.4 (6.3-8.2) g/dL Albumin 3.5 (3.5-5.0) g/dL TSH 1.390 (0.465-4.680) mIU/L Free T4 (0.78-2.19) ng/dL Urine Color Urine Appearance (Clear) Urine pH (5.0-8.0) Ur Specific [place] (1.001-1.035) Urine Protein (Negative) Urine Glucose (UA) (Negative) Urine Ketones (Negative) Urine Blood (Negative) Urine Nitrite (Negative) Urine Bilirubin (Negative) Urine Urobilinogen (<2.0) mg/dL Ur Leukocyte Esterase (Negative) Urine RBC (0-5) /hpf Urine WBC (0-5) /hpf Ur Squamous Epith Cells (0-4) /hpf Amorphous Sediment (None) /hpf Urine Mucus (None) /hpf 03/03/19 03/03/19 03/03/19 Range/Units 01:14 01:14 01:14 WBC (3.8-10.6) k/uL RBC (4.30-5.90) m/uL Hgb (13.0-17.5) gm/dL Hct (39.0-53.0) % MCV (80.0-100.0) fL MCH (25.0-35.0) pg MCHC (31.0-37.0) g/dL RDW (11.5-15.5) % Plt Count (150-450) k/uL Neutrophils % % Lymphocytes % % Monocytes % % Eosinophils % % Basophils % % Neutrophils # (1.3-7.7) k/uL Lymphocytes # (1.0-4.8) k/uL Monocytes # (0-1.0) k/uL Eosinophils # (0-0.7) k/uL Basophils # (0-0.2) k/uL PT (9.0-12.0) sec INR (<1.2) APTT (22.0-30.0) sec Sodium (137-145) mmol/L Potassium (3.5-5.1) mmol/L Chloride (98-107) mmol/L Carbon Dioxide (22-30) mmol/L Anion Gap mmol/L BUN (9-20) mg/dL Creatinine (0.66-1.25) mg/dL Est GFR (CKD-EPI)AfAm (>60 ml/min/1.73 sqM) Est GFR (CKD-EPI)NonAf (>60 ml/min/1.73 sqM) Glucose (74-99) mg/dL Plasma Lactic Acid Evan 2.8 H* (0.7-2.0) mmol/L Calcium (8.4-10.2) mg/dL Magnesium (1.6-2.3) mg/dL Total Bilirubin (0.2-1.3) mg/dL AST (17-59) U/L ALT (4-49) U/L Alkaline Phosphatase (38-126) U/L Troponin I <0.012 (0.000-0.034) ng/mL NT-Pro-B Natriuret Pep 643 pg/mL Total Protein (6.3-8.2) g/dL Albumin (3.5-5.0) g/dL TSH (0.465-4.680) mIU/L Free T4 (0.78-2.19) ng/dL Urine Color Urine Appearance (Clear) Urine pH (5.0-8.0) Ur Specific [place] (1.001-1.035) Urine Protein (Negative) Urine Glucose (UA) (Negative) Urine Ketones (Negative) Urine Blood (Negative) Urine Nitrite (Negative) Urine Bilirubin (Negative) Urine Urobilinogen (<2.0) mg/dL Ur Leukocyte Esterase (Negative) Urine RBC (0-5) /hpf Urine WBC (0-5) /hpf Ur Squamous Epith Cells (0-4) /hpf Amorphous Sediment (None) /hpf Urine Mucus (None) /hpf 03/03/19 03/03/19 03/03/19 Range/Units 01:17 03:10 03:48 WBC (3.8-10.6) k/uL RBC (4.30-5.90) m/uL Hgb (13.0-17.5) gm/dL Hct (39.0-53.0) % MCV (80.0-100.0) fL MCH (25.0-35.0) pg MCHC (31.0-37.0) g/dL RDW (11.5-15.5) % Plt Count (150-450) k/uL Neutrophils % % Lymphocytes % % Monocytes % % Eosinophils % % Basophils % % Neutrophils # (1.3-7.7) k/uL Lymphocytes # (1.0-4.8) k/uL Monocytes # (0-1.0) k/uL Eosinophils # (0-0.7) k/uL Basophils # (0-0.2) k/uL PT (9.0-12.0) sec INR (<1.2) APTT (22.0-30.0) sec Sodium (137-145) mmol/L Potassium (3.5-5.1) mmol/L Chloride (98-107) mmol/L Carbon Dioxide (22-30) mmol/L Anion Gap mmol/L BUN (9-20) mg/dL Creatinine (0.66-1.25) mg/dL Est GFR (CKD-EPI)AfAm (>60 ml/min/1.73 sqM) Est GFR (CKD-EPI)NonAf (>60 ml/min/1.73 sqM) Glucose (74-99) mg/dL Plasma Lactic Acid Evan 1.3 (0.7-2.0) mmol/L Calcium (8.4-10.2) mg/dL Magnesium (1.6-2.3) mg/dL Total Bilirubin (0.2-1.3) mg/dL AST (17-59) U/L ALT (4-49) U/L Alkaline Phosphatase (38-126) U/L Troponin I (0.000-0.034) ng/mL NT-Pro-B Natriuret Pep pg/mL Total Protein (6.3-8.2) g/dL Albumin (3.5-5.0) g/dL TSH (0.465-4.680) mIU/L Free T4 1.56 (0.78-2.19) ng/dL Urine Color Light Yellow Urine Appearance Clear (Clear) Urine pH 8.0 (5.0-8.0) Ur Specific [place] 1.006 (1.001-1.035) Urine Protein 1+ H (Negative) Urine Glucose (UA) Trace H (Negative) Urine Ketones Trace H (Negative) Urine Blood Trace H (Negative) Urine Nitrite Negative (Negative) Urine Bilirubin Negative (Negative) Urine Urobilinogen <2.0 (<2.0) mg/dL Ur Leukocyte Esterase Negative (Negative) Urine RBC 2 (0-5) /hpf Urine WBC 26 H (0-5) /hpf Ur Squamous Epith Cells <1 (0-4) /hpf Amorphous Sediment Rare H (None) /hpf Urine Mucus Occasional H (None) /hpf Critical Care Time Critical Care Time: Yes (30 minutes) Disposition Clinical Impression: Atrial fibrillation with rapid ventricular response, Lactic acidosis, Urinary tract infection, Hypotension Disposition: ADMITTED IP TO THIS HOSP Condition: Good Is patient prescribed a controlled substance at d/c from ED?: No
[2019-03-03 01:26] LABS: Basophils # (A) 0.1 k/uL (0-0.2); Basophils % (A) 0 %; Eosinophils % (A) 0 %; HCT 39.2 % (39.0-53.0); HGB 12.6 gm/dL (13.0-17.5); Lymphocytes % (A) 8 %; MCH 29.6 pg (25.0-35.0); MCHC 32.3 g/dL (31.0-37.0); MCV 91.6 fL (80.0-100.0); Mean Platelet Volume 9.9; Monocytes # (A) 0.5 k/uL (0-1.0); Monocytes % (A) 3 %; Neutrophils # (A) 11.6 k/uL (1.3-7.7); Neutrophils % (A) 87 %; Platelet Count 285 k/uL (150-450); RBC 4.28 m/uL (4.30-5.90); RDW 13.2 % (11.5-15.5); WBC 13.3 k/uL (3.8-10.6)
--- NOTE | 2019-03-03 01:26 | XR ---
EXAMINATION TYPE: XR chest 1V portable DATE OF EXAM: 03/03/2019 COMPARISON: 06/24/2017 HISTORY: Dysrhythmia TECHNIQUE: FINDINGS: Heart appears normal. Lungs are clear. There is no heart failure. Costophrenic angles are c lear. There are chest leads. Bony thorax is intact. IMPRESSION: No active cardiopulmonary disease. No change.
[2019-03-03 01:37] LABS: Albumin 3.5 g/dL (3.5-5.0); Calcium 8.8 mg/dL (8.4-10.2); Potassium 3.9 mmol/L (3.5-5.1); Total Bilirubin 0.6 mg/dL (0.2-1.3); Total Protein 6.4 g/dL (6.3-8.2)
[2019-03-03 01:40] LABS: INR 0.9 (<1.2); Partial Thromboplastin Time 23.2 sec (22.0-30.0); Prothrombin Time 9.6 sec (9.0-12.0)
[2019-03-03] MEDS ORDERED: METOPROLOL TARTRATE 25 MG TAB PO STA (01:59)
[2019-03-03] MEDS ORDERED: SODIUM CHLORIDE 0.9% 500 ML 500 ML IV STA (01:59)
[2019-03-03] MEDS ORDERED: SODIUM CHLORIDE 0.9% 1,000 ML IV ONE ×2 (02:35→03:46)
[2019-03-03] MEDS: DILTIAZEM 125 MG in SODIUM CHLORIDE 0.9% 100 ML IV SCH ×2 (03:00→21:18)
[2019-03-03 03:35] LABS: Amorphous Sediment,Urine Rare /hpf; Appearance,Urine Clear (Clear); Bilirubin,Urine Negative (Negative); Blood,Urine Trace (Negative); Color,Urine Light Yellow; Glucose,Urine (UA) Trace (Negative); Ketones,Urine Trace (Negative); Leukocyte Esterase,Urine Negative (Negative); Mucus,Urine Occasional /hpf; Nitrite,Urine Negative (Negative); Protein,Urine 1+ (Negative); RBC,Urine 2 /hpf (0-5); Specific Gravity,Urine 1.006 (1.001-1.035); Squamous Epithelial Cell,Urine <1 /hpf (0-4); Urobilinogen,Urine <2.0 mg/dL (<2.0); WBC,Urine 26 /hpf (0-5)
[2019-03-03] MEDS ORDERED: LEVOFLOXACIN 750 MG TAB PO STA (03:45)
[2019-03-03] MEDS ORDERED: NITROGLYCERIN SL TABS 0.4 MG TAB SUBLINGUAL PRN (05:54)
[2019-03-03] MEDS ORDERED: IPRATROPIUM-ALBUTEROL 3 ML NEB INHALATION PRN (05:57)
[2019-03-03] MEDS ORDERED: ALPRAZolam 0.25 MG TAB PO PRN (05:57)
[2019-03-03] MEDS: VIT A,C & E-LUTEIN-MINERALS 1 EACH TAB PO SCH (09:36)
[2019-03-03] MEDS: CHOLECALCIFEROL 1,000 UNIT TAB PO SCH (09:36)
[2019-03-03] MEDS: MELOXICAM 7.5 MG TAB PO SCH (09:36)
[2019-03-03] MEDS: ENOXAPARIN 100 MG/ML SYRINGE SQ SCH ×3 (09:44→19:43)
--- NOTE | 2019-03-03 13:03 | P.CNPUL ---
History of Present Illness Consult date: 03/03/19 Reason for consult: dyspnea History of present illness: 33-year-old male patient came into the hospital because of worsening shortness of breath. He felt generalized weakness and malaise. Over the past few weeks, the patient had increased cough and congestion and he was having to take antibiotic course of doxycycline and a prednisone burst taper and [id number] medication. He had limited improvement and following that he had seen his primary care physician again for another round of antibiotics which included Z-Sam and prednisone taper. Unfortunately his condition did not improve. He came into the emergency department complaining of tachycardia and his heart rate was racing. He is known to have atrial fibrillation. In the ED, the patient was found to be in atrial fibrillation with rapid ventricular response. His white cell count was slightly elevated at 13. His lactic acid was at 2.8 dropped down to 1.2 with fluid resuscitation. His first set of troponin was negative at 0.01 and second set came back at 0.05. His creatinine is at 1.2. UA shows some mild leukocytosis with a white second of 26 per high- power field. There is +1 protein. Chest x-ray showed no acute cardio pulmonary abnormalities. He is currently bronchospastic and wheezy. He is on room air oxygen. He had a pulmonary function test in our office back in 2019 and his FEV1 was in the order of 78% of predicted. He has a home nebulizer. No other maintenance inhalational treatment for now. No fever. No chills. No his cardiac rhythm is back into normal sinus rhythm for now with frequent PACs. He has not taken any form of long-term anticoagulation. 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 He also has history of melanoma that was resected from the back many years back. No smoking Review of Systems Constitutional: Reports fatigue, Reports weakness Eyes: denies as per HPI, denies blurred vision, denies bulging eye, denies decreased vision, denies diplopia, denies discharge, denies dry eye, denies irritation, denies itching, denies pain, denies photophobia, denies loss of peripheral vision, denies loss of vision, denies tunnel vision/blind spots Ears: deny: decreased hearing, ear discharge, earache, tinnitus Ears, nose, mouth and throat: Denies headache, Denies sore throat Cardiovascular: Reports irregular heart beat, Reports palpitations Respiratory: Reports congestion, Reports cough, Reports wheezing Gastrointestinal: Reports as per HPI Genitourinary: Reports as per HPI Musculoskeletal: Reports as per HPI Musculoskeletal: absent: ankle pain, ankle stiffness, ankle swelling, as per HPI, elbow pain, elbow stiffness, elbow swelling, foot pain, foot stiffness, foot swelling, hand pain, hand stiffness, hand swelling, hip pain, hip stiffness, hip swelling, knee pain, knee stiffness, knee swelling, shoulder pain, shoulder stiffness, shoulder swelling, wrist pain, wrist stiffness, wrist swelling Integumentary: Reports as per HPI Neurological: Reports as per HPI Psychiatric: Reports as per HPI Endocrine: Reports as per HPI Hematologic/Lymphatic: Reports as per HPI Past Medical History Past Medical History: Atrial Fibrillation, Cancer, COPD, Osteoarthritis (OA) Additional Past Medical History / Comment(s): Currently has cough/congestion on antibiotics/steroids, 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, pneumothorax from port placement, basal cell skin cancer with removals, bronchtitis, small hiatal hernia, esophagitis, pancreatitis, arthritis in multiple joints, Paroxysmal atrial fibrillation History of Any Multi-Drug Resistant Organisms: None Reported Past Surgical History: Hernia Repair, Joint Replacement, Orthopedic Surgery, Tonsillectomy Additional Past Surgical History / Comment(s): Bone marrow biopsy, bone marrow transplant, skin cancer removals, umbilical hernia repair, EGD, colonoscopies, port-since removed, bilateral knee arthroscopies, total R knee arthroplasty, bilateral legs varicose vein stripping. Past Anesthesia/Blood Transfusion Reactions: No Reported Reaction Smoking Status: Never smoker - Past Family History Brother(s) Family Medical History: Cancer Additional Family Medical History / Comment(s): One brother with multiple myeloma. Another brother with CLL Father Family Medical History: No Reported History Additional Family Medical History / Comment(s): Father was healthy and lived to be 95 yrs old. Mother Family Medical History: Vascular Disorder Additional Family Medical History / Comment(s): Mother at the age of 95 yrs from a ruptured aortic aneurysm. Medications and Allergies Home Medications Medication Instructions Recorded Confirmed Type ALPRAZolam [Xanax] 0.25 mg PO TID PRN 01/12/14 03/03/19 History Meloxicam 7.5 mg PO DAILY 01/12/14 03/03/19 History Albuterol Inhaler [Ventolin 1 - 2 puff INHALATION RT-QID PRN 06/24/17 03/03/19 History Inhaler] Budesonide/Formoterol Fumarate 2 puff INHALATION RT-BID PRN 06/24/17 03/03/19 History [Symbicort 160-4.5 Mcg Inhaler] Glucosam/Amador-Msm1/C/Julio/Bosw 1 tab PO DAILY 06/24/17 03/03/19 History [Glucosamine-Chondroitin Tablet] Acetaminophen Tab [Tylenol Tab] 1,000 mg PO Q6HR PRN 03/03/19 03/03/19 History Albuterol Nebulized [Ventolin 2.5 mg INHALATION RT-Q6H 03/03/19 03/03/19 History Nebulized] Ascorbic Acid [Vitamin C] 1,000 mg PO DAILY 03/03/19 03/03/19 History Cholecalciferol [Vitamin D3 (25 1,000 unit PO DAILY 03/03/19 03/03/19 History Mcg = 1000 Iu)] Codeine Phosphate/Guaifenesin 10 ml PO Q4H PRN 03/03/19 03/03/19 History [Guaiatussin AC Liquid] Doxycycline [Vibramycin] 100 mg PO DAILY 03/03/19 03/03/19 History Fish Oil/Dha/Epa [Fish Oil 1,200 1 cap PO DAILY 03/03/19 03/03/19 History mg Fish Oil] Gentle Iron 28 1 cap PO DAILY 03/03/19 03/03/19 History Magnesium Gluconate 100mg 100 mg PO DAILY 03/03/19 03/03/19 History Metoprolol Tartrate [Lopressor] 25 mg PO DAILY PRN 03/03/19 03/03/19 History Mucinex D 600-60 1 tab PO BID 03/03/19 03/03/19 History Turmeric Root Extract [Turmeric] 500 mg PO DAILY 03/03/19 03/03/19 History Tylenol Sinus And Headache 2 cap PO Q4H PRN 03/03/19 03/03/19 History predniSONE See Taper PO DAILY 03/03/19 03/03/19 History Allergies Allergy/AdvReac Type Severity Reaction Status Date / Time Penicillins Allergy Severe Rash/Hives Verified 03/03/19 06:41 benzonatate Allergy Dyspnea Verified 03/03/19 06:41 [From Harper Yanez] Physical Exam Vitals: Vital Signs Temp Pulse Pulse Pulse Resp BP BP 03/03/19 09:21 56 L 16 03/03/19 09:05 97.6 F 49 L 16 93/42 03/03/19 06:46 97.4 F L 58 L 15 98/62 03/03/19 05:03 98.5 F 55 L 15 104/62 03/03/19 03:00 97.8 F 64 18 93/64 03/03/19 01:30 91 18 105/72 03/03/19 01:22 189 H 178 H 18 89/61 03/03/19 01:13 97.5 F L 170 H 18 113/97 Pulse Ox 03/03/19 09:21 03/03/19 09:05 97 03/03/19 06:46 97 03/03/19 05:03 97 03/03/19 03:00 96 03/03/19 01:30 97 03/03/19 01:22 99 03/03/19 01:13 98 Intake and Output 03/02/19 03/03/19 03/03/19 22:59 06:59 14:59 Other: Voiding Method Urinal Weight 99.79 kg 99.79 kg The patient appeared well nourished and normally developed. Vital signs as documented. Head exam is unremarkable. No scleral icterus or corneal arcus noted. Neck is without jugular venous distension, thyromegaly, or carotid bruits. Carotid upstrokes are brisk bilaterally. Lungs diminished breath sounds along with scattered expiratory wheezes throughout the lung carrera bilaterally. The rhythm is irregular and the patient has sinus rhythm with frequent PACs. First and second heart sounds normal. No murmurs, rubs or gallops. Abdominal exam reveals normal bowel sounds, no masses, no organomegaly and no aortic enla rgement. Extremities are nonedematous and both femoral and pedal pulses are normal.Examination of the skin revealed no evidence of significant rashes, suspicious appearing nevi or other concerning lesions. Neurologically the patient is awake and alert and is no focal neurological deficits.Examination of the skin revealed no evidence of significant rashes, suspicious appearing nevi or other concerning lesions. Results - Laboratory Findings CBC and BMP: 03/03/19 01:14 03/03/19 01:14 PT/INR, D-dimer PT 9.6 sec (9.0-12.0) 03/03/19 01:14 INR 0.9 (<1.2) 03/03/19 01:14 Abnormal lab findings: Abnormal Labs 03/03/19 03/03/19 03/03/19 01:14 01:14 01:14 WBC 13.3 H RBC 4.28 L Hgb 12.6 L Neutrophils # 11.6 H Sodium 136 L Creatinine 1.29 H Glucose 187 H Plasma Lactic Acid Evan 2.8 H* ALT 84 H Alkaline Phosphatase 193 H Troponin I Urine Protein Urine Glucose (UA) Urine Ketones Urine Blood Urine WBC Amorphous Sediment Urine Mucus 03/03/19 03/03/19 03:10 07:25 WBC RBC Hgb Neutrophils # Sodium Creatinine Glucose Plasma Lactic Acid Evan ALT Alkaline Phosphatase Troponin I 0.054 H* Urine Protein 1+ H Urine Glucose (UA) Trace H Urine Ketones Trace H Urine Blood Trace H Urine WBC 26 H Amorphous Sediment Rare H Urine Mucus Occasional H - Diagnostic Findings Chest x-ray: image reviewed Assessment and Plan Plan: 1 acute bronchitis complicated by reactive bronchospasm wheezing with possibility of an underlying chronic asthmatic bronchitis in this patient. 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 Chest x-ray is negative for now. Check influenza screen DuoNeb nebulized treatments 4 times a day [id number] IV Solu Medrol 60 mg every 6 hours IV push Rocephin and Zithromax combination, with understanding that the patient has failed outpatient antibiotics probably due to the fact that the presentation was typical of viral. Influenza screen . Monitor the cardiac rhythm and currently is in a sinus rhythm with frequent PACs Admit the patient to the medical floor and will continue to follow. Resume outpatient medications echocardiogram and check TSH Wean off the patient on Cardizem drip and transition back to metoprolol
--- NOTE | 2019-03-03 14:03 | P.HPIM ---
History of Present Illness H&P Date: 03/03/19 This patient is 73-year-old male patient of Dr. Meza and Dr. 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 The patient gives history that he has had difficulty tolerating the Lopressor in the past. He was gradually decreased and then discontinued but he states he hasn't had trouble with bronchitis for at least the last couple weeks to month. He saw Dr. Meza a week ago and was placed on steroids, doxycycline and Mucinex. He states he has not had any atrial fibrillation for 1-1/2 years but he has found he was having palpitations and was taking metoprolol four times over the last 7 days and he feels his heart racing. Yesterday he had an episode and feeling palpitations. He felt faint and according to the floor but did not have any loss of consciousness. He had dizziness. No chest pain. He states he has never been on anticoagulation in the past. He last saw Dr. Panda 3 weeks ago and was scheduled for echocardiogram sometime in the spring. Patient was brought into [facility] emergency center. Initial EKG was atrial fibrillation at a heart rate of 170. Patient coughed and converted to normal sinus rhythm. He has had small episodes of intermittent A. fib, currently sinus rhythm with PACs. Patient has afebrile, heart rate currently 58, blood pressure 98/62, pulse ox 92% on 2 L nasal cannula. WBC 13.3, hemoglobin 12.6, platelet count 285. BUN 18 creatinine 1.9, potassium 3.9, lactic acid 2.8 with repeat at 1.3, ALT 84, alkaline phosphatase 193. Initial troponin 0.012 and repeated 0.054. TSH 1.390 and free T4 1 0.56. Urinalysis clear, nitrite and leukoesterase negative. Chest x-ray shows no acute cardiopulmonary disease. Patient is seen in the ER and consult in place for pulmonary medicine and cardiology. Review of Systems Constitutional: Reports fatigue, Reports weakness, Denies anorexia, Denies chills Eyes: denies blurred vision, denies pain Ears, nose, mouth and throat: Denies headache, Denies nasal congestion, Denies nasal discharge, Denies sore throat, Denies vertigo Cardiovascular: Reports lightheadedness, Denies chest pain, Denies dyspnea on exertion Respiratory: Reports cough, Reports cough with sputum, Reports dyspnea, Reports respiratory infections, Reports wheezing, Denies home oxygen Gastrointestinal: Denies abdominal pain, Denies diarrhea, Denies loss of appetite, Denies nausea, Denies vomiting Genitourinary: Denies dysuria, Denies urinary retention Musculoskeletal: Reports muscle weakness, Denies frequent falls, Denies gait dysfunction, Denies myalgias Integumentary: Denies pruritus, Denies rash, Denies wounds Neurological: Denies change in mentation, Denies change in speech, Denies numbness, Denies seizures, Denies weakness Psychiatric: Denies anxiety, Denies depression Endocrine: Denies fatigue, Denies weight change Past Medical History Past Medical History: Atrial Fibrillation, Cancer, COPD, Osteoarthritis (OA) Additional Past Medical History / Comment(s): mantle lymphoma, basal cell carcinoma History of Any Multi-Drug Resistant Organisms: None Reported Past Surgical History: Hernia Repair Additional Past Surgical History / Comment(s): removal of skin cancer Past Anesthesia/Blood Transfusion Reactions: No Reported Reaction Past Psychological History: No Psychological Hx Reported Smoking Status: Never smoker Past Alcohol Use History: Occasional Additional Past Alcohol Use History / Comment(s): Patient is a lifelong nonsmoker, no marijuana, no illicit drug use, he drinks alcohol 2-3 drinks on the weekend. He has had none for 2 weeks. He lives at home with his . 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 He does not require a walker. He does have a nebulizer at home. He does not have oxygen, no CPAP. Past Drug Use History: None Reported - Past Family History Brother(s) Family Medical History: Cancer Additional Family Medical History / Comment(s): Patient has 2 brothers and both have passed one from multiple myeloma and one from multiple problems from obesity. Father Family Medical History: No Reported History Additional Family Medical History / Comment(s): Father was healthy and lived to be 95 yrs old. Mother Family Medical History: Vascular Disorder Additional Family Medical History / Comment(s): Mother at the age of 74 yrs from a ruptured aortic aneurysm. Son(s) Additional Family Medical History / Comment(s): Patient has 2 sons with no major medical problems. Patient doesn't have any sisters. Medications and Allergies Home Medications Medication Instructions Recorded Confirmed Type ALPRAZolam [Xanax] 0.25 mg PO TID PRN 01/12/14 03/03/19 History Meloxicam 7.5 mg PO DAILY 01/12/14 03/03/19 History Albuterol Inhaler [Ventolin 1 - 2 puff INHALATION RT-QID PRN 06/24/17 03/03/19 History Inhaler] Budesonide/Formoterol Fumarate 2 puff INHALATION RT-BID PRN 06/24/17 03/03/19 History [Symbicort 160-4.5 Mcg Inhaler] Glucosam/Amador-Msm1/C/Julio/Bosw 1 tab PO DAILY 06/24/17 03/03/19 History [Glucosamine-Chondroitin Tablet] Acetaminophen Tab [Tylenol Tab] 1,000 mg PO Q6HR PRN 03/03/19 03/03/19 History Albuterol Nebulized [Ventolin 2.5 mg INHALATION RT-Q6H 03/03/19 03/03/19 History Nebulized] Ascorbic Acid [Vitamin C] 1,000 mg PO DAILY 03/03/19 03/03/19 History Cholecalciferol [Vitamin D3 (25 1,000 unit PO DAILY 03/03/19 03/03/19 History Mcg = 1000 Iu)] Codeine Phosphate/Guaifenesin 10 ml PO Q4H PRN 03/03/19 03/03/19 History [Guaiatussin AC Liquid] Doxycycline [Vibramycin] 100 mg PO DAILY 03/03/19 03/03/19 History Fish Oil/Dha/Epa [Fish Oil 1,200 1 cap PO DAILY 03/03/19 03/03/19 History mg Fish Oil] Gentle Iron 28 1 cap PO DAILY 03/03/19 03/03/19 History Magnesium Gluconate 100mg 100 mg PO DAILY 03/03/19 03/03/19 History Metoprolol Tartrate [Lopressor] 25 mg PO DAILY PRN 03/03/19 03/03/19 History Mucinex D 600-60 1 tab PO BID 03/03/19 03/03/19 History Turmeric Root Extract [Turmeric] 500 mg PO DAILY 03/03/19 03/03/19 History Tylenol Sinus And Headache 2 cap PO Q4H PRN 01/07/20 01/07/20 History predniSONE See Taper PO DAILY 03/03/19 03/03/19 History Allergies Allergy/AdvReac Type Severity Reaction Status Date / Time Penicillins Allergy Severe Rash/Hives Verified 03/03/19 06:41 benzonatate Allergy Dyspnea Verified 03/03/19 06:41 [From Candelariaanish Beau] Physical Exam Vitals: Vital Signs Temp Pulse Pulse Pulse Resp BP BP 03/03/19 09:21 56 L 16 03/03/19 09:05 97.6 F 49 L 16 93/42 03/03/19 06:46 97.4 F L 58 L 15 98/62 03/03/19 05:03 98.5 F 55 L 15 104/62 03/03/19 03:00 97.8 F 64 18 93/64 03/03/19 01:30 91 18 105/72 03/03/19 01:22 189 H 178 H 18 89/61 03/03/19 01:13 97.5 F L 170 H 18 113/97 Pulse Ox 03/03/19 09:21 03/03/19 09:05 97 03/03/19 06:46 97 03/03/19 05:03 97 03/03/19 03:00 96 03/03/19 01:30 97 03/03/19 01:22 99 03/03/19 01:13 98 Intake and Output 03/02/19 03/03/19 03/03/19 22:59 06:59 14:59 Other: Voiding Method Urinal Weight 99.79 kg Gen: This is a 73-year-old male. He is sitting on the ER stretcher and appears to be comfortable and in no acute distress. HEENT: Head is atraumatic, normocephalic. Pupils equal, round. Sclerae is anicteric. NECK: Supple. No JVD. No lymphadenopathy. No thyromegaly. LUNGS: Scattered rhonchi and expiratory wheeze. No intercostal retractions. HEART: Irregular rate and rhythm. No murmur. 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 ABDOMEN: Soft. Bowel sounds are present. No masses. No tenderness. EXTREMITIES: No pedal edema. No calf tenderness. Dorsalis pedis +2 bilaterally. NEUROLOGICAL: Patient is awake, alert and oriented x3. Cranial nerves 2 through 12 are grossly intact. Results CBC & Chem 7: 03/03/19 01:14 01/07/20 01:14 Labs: Abnormal Lab Results - Last 24 Hours (Table) 03/03/19 03/03/19 03/03/19 Range/Units 01:14 01:14 01:14 WBC 13.3 H (3.8-10.6) k/uL RBC 4.28 L (4.30-5.90) m/uL Hgb 12.6 L (13.0-17.5) gm/dL Neutrophils # 11.6 H (1.3-7.7) k/uL Sodium 136 L (137-145) mmol/L Creatinine 1.29 H (0.66-1.25) mg/dL Glucose 187 H (74-99) mg/dL Plasma Lactic Acid Evan 2.8 H* (0.7-2.0) mmol/L ALT 84 H (4-49) U/L Alkaline Phosphatase 193 H (38-126) U/L Troponin I (0.000-0.034) ng/mL Urine Protein (Negative) Urine Glucose (UA) (Negative) Urine Ketones (Negative) Urine Blood (Negative) Urine WBC (0-5) /hpf Amorphous Sediment (None) /hpf Urine Mucus (None) /hpf 03/03/19 03/03/19 Range/Units 03:10 07:25 WBC (3.8-10.6) k/uL RBC (4.30-5.90) m/uL Hgb (13.0-17.5) gm/dL Neutrophils # (1.3-7.7) k/uL Sodium (137-145) mmol/L Creatinine (0.66-1.25) mg/dL Glucose (74-99) mg/dL Plasma Lactic Acid Evan (0.7-2.0) mmol/L ALT (4-49) U/L Alkaline Phosphatase (38-126) U/L Troponin I 0.054 H* (0.000-0.034) ng/mL Urine Protein 1+ H (Negative) Urine Glucose (UA) Trace H (Negative) Urine Ketones Trace H (Negative) Urine Blood Trace H (Negative) Urine WBC 26 H (0-5) /hpf Amorphous Sediment Rare H (None) /hpf Urine Mucus Occasional H (None) /hpf Thrombosis Risk Factor Assmnt - DVT/VTE Prophylaxis DVT/VTE Prophylaxis: Pharmacologic Prophylaxis ordered Assessment and Plan Plan: 1. A. fib with RVR, paroxysmal atrial fibrillation. Patient has converted to a sinus rhythm. Cardiology consult. 2. Acute bronchitis with reactive bronchospasm and wheezing with possible underlying chronic asthmatic bronchitis. Consult with Dr. herrera and westley. Continue DuoNeb treatments 3 times daily and as needed, azithromycin and ceftriaxone, Pulmicort 1 mg twice daily, Perforomist twice daily, Solu-Medrol 60 mg IV every 6 hours. 3. Mantle cell lymphoma status post bone marrow transplantation, stable. 4. History of basal cell carcinoma. 5. DVT prophylaxis. Lovenox. 6. GI prophylaxis. Protonix. Patient will be admitted to the hospital for a minimum of 2 night stay. Discharge plan: Return home Impression and plan of care have been directed as dictated by the signing physician. Gianna Silver nurse practitioner acting as scribe for signing physician.
[2019-03-03] MEDS: INSULIN ASPART (NovoLOG) 100 UNIT/ML VIAL SQ SCH ×3 (14:06→21:17)
[2019-03-03] MEDS ORDERED: FLECAINIDE 50 MG TAB PO SCH (14:15)
[2019-03-03] MEDS ORDERED: methylPREDNISolone SOD SUCCI 40 MG/ML 1 ML VIAL IV SCH (16:00)
[2019-03-03] MEDS: IPRATROPIUM-ALBUTEROL 3 ML NEB INHALATION SCH ×2 (16:39→19:51)
[2019-03-03 19:39] LABS: Glucose,Whole Blood 131 mg/dL (75-99)
[2019-03-03] MEDS: methylPREDNISolone SOD SUCCI 125 MG/2 ML VIAL IV SCH ×2 (19:42→23:23)
[2019-03-03] MEDS: DILTIAZEM ORAL 60 MG TAB PO SCH ×2 (19:42→21:16)
[2019-03-03] MEDS: FORMOTEROL FUMARATE 20 MCG/2 ML NEBU INHALATION SCH (19:50)
[2019-03-03] MEDS: BUDESONIDE 1 MG/2 ML NEBU INHALATION SCH (19:51)
[2019-03-03] MEDS ORDERED: BUDESONIDE 0.5 MG/2 ML NEBU INHALATION SCH (20:00)
--- NOTE | 2019-03-03 22:36 | CONS ---
CONSULTATION 03/03/2019 This is a 73-year-old gentleman with a known history of paroxysmal atrial fib, who has not been in atrial fib too much, was advised beta marcos, but complained of a lot of side effects including fatigue, lack of energy and hypotension and therefore stopped taking this on his own. For about one week, he is having what seems to be an upper respiratory tract infection with URI type symptoms, wheezing, shortness of breath, and probably some acute bronchitis. For at least a day or 2, he has been experiencing episodes of what he describes as palpitations and he feels that his heart is racing. He came into the emergency room around after midnight with complaints, saying that he feels sometimes when he checked his blood pressure, his heart rate was over 150 and he thinks he is in atrial fibrillation. He was indeed in atrial fib, rapid rate, placed on Cardizem and then the rate came down. He converted to sinus rhythm spontaneously and has been going in and out of atrial fib. At the time of my evaluation, he is resting comfortably. Denies any chest discomfort and his breathing is however somewhat short. He is wheezing. There is evidence of some expiratory rhonchi. He was seen by pulmonology, started on bronchodilators and steroids. PAST MEDICAL HISTORY: 1. Paroxysmal atrial fibrillation. 2. History of some basal cell carcinoma, question of some lymphoma in the past. 3. He is status post hernia repair .. SOCIAL HISTORY: This patient is not a smoker and uses alcohol probably almost on a regular basis, but he said he is drinking a lot less than he used to drink before. PHYSICAL EXAMINATION: Blood pressure is 118/70, pulse rate is about 70-80, irregular. HEENT unremarkable. Fundus was not examined by me. Neck is supple. No JVD. I do not hear a carotid bruit. Heart exam reveals S1, S2 heard normally. There is a soft systolic murmur audible at the base. Lungs reveal bilateral scattered rhonchi. Abdomen is soft, nontender. Lower extremities reveal diminished pulses. Central nervous system grossly within normal limits. IMPRESSION: 1. Paroxysmal atrial fibrillation. Patient came in with atrial fib rapid rate about 150 beats per minute, then converted to sinus rhythm, has been in and out since then. 2. History of hernia repair. 3. Acute bronchitis, may have underlying bronchial asthma. 4. Previous outpatient stress test did not reveal any clear-cut ischemia and he demonstrated fair exercise capacity in February of 2016. RECOMMENDATIONS: I am recommending that we will discontinue the IV Cardizem drip if the heart rate is slower and we will try flecainide 50 mg b.i.d. to see if he will convert to sinus rhythm. I will continue Lovenox 100 mg q.12 hours that has been started already. He is not tolerating or does not wish to take beta blockers. I will therefore discontinue this and place him on Cardizem 60 mg t.i.d. Hopefully, we will convert to sinus rhythm and given his age and recurrent persistent atrial fibrillation, he may benefit from anticoagulation but patient will think this over. We will obtain EKG in the morning. We will also obtain echocardiogram to assess LV function. I discussed my thoughts in detail with the patient and . Thank you very much for the consult. ALPHONSO / EFREN: [id number] /
[2019-03-04] MEDS: FLECAINIDE 50 MG TAB PO SCH ×2 (05:17→18:14)
[2019-03-04] MEDS: methylPREDNISolone SOD SUCCI 125 MG/2 ML VIAL IV SCH (05:17)
[2019-03-04] MEDS: ENOXAPARIN 100 MG/ML SYRINGE SQ SCH (05:29)
[2019-03-04 05:52] LABS: Glucose,Whole Blood 185 mg/dL (75-99)
[2019-03-04] MEDS: INSULIN ASPART (NovoLOG) 100 UNIT/ML VIAL SQ SCH ×4 (06:00→20:30)
[2019-03-04 06:26] LABS: Basophils % (A) 0 %; Eosinophils % (A) 0 %; HCT 38.7 % (39.0-53.0); HGB 12.1 gm/dL (13.0-17.5); Lymphocytes # (A) 1.1 k/uL (1.0-4.8); Lymphocytes % (A) 13 %; MCH 28.7 pg (25.0-35.0); MCHC 31.3 g/dL (31.0-37.0); MCV 91.7 fL (80.0-100.0); Mean Platelet Volume 9.3; Monocytes # (A) 0.2 k/uL (0-1.0); Monocytes % (A) 2 %; Neutrophils # (A) 7.1 k/uL (1.3-7.7); Neutrophils % (A) 83 %; Platelet Count 290 k/uL (150-450); RBC 4.23 m/uL (4.30-5.90); RDW 13.2 % (11.5-15.5); WBC 8.6 k/uL (3.8-10.6)
[2019-03-04 06:46] LABS: African American GFR (CKD) >90 (>60 ml/min/1.73 sqM); Anion Gap 9 mmol/L; Blood Urea Nitrogen 17 mg/dL (9-20); Calcium 9.1 mg/dL (8.4-10.2); Carbon Dioxide 26 mmol/L (22-30); Chloride 104 mmol/L (98-107); Cholesterol 199 mg/dL (<200); Glucose 183 mg/dL (74-99); HDL Cholesterol 43 mg/dL (40-60); LDL Cholesterol,Calculated 140 mg/dL (0-99); Non-African American GFR(CKD) 83 (>60 ml/min/1.73 sqM); Potassium 4.8 mmol/L (3.5-5.1); Sodium 139 mmol/L (137-145); Triglycerides 79 mg/dL (<150)
[2019-03-04] MEDS: FORMOTEROL FUMARATE 20 MCG/2 ML NEBU INHALATION SCH ×2 (08:10→20:22)
[2019-03-04] MEDS: IPRATROPIUM-ALBUTEROL 3 ML NEB INHALATION SCH ×3 (08:10→20:22)
[2019-03-04] MEDS: BUDESONIDE 1 MG/2 ML NEBU INHALATION SCH ×2 (08:11→20:22)
[2019-03-04] MEDS: CHOLECALCIFEROL 1,000 UNIT TAB PO SCH (08:42)
[2019-03-04] MEDS: DILTIAZEM ORAL 60 MG TAB PO SCH (08:42)
[2019-03-04] MEDS: MELOXICAM 7.5 MG TAB PO SCH (08:42)
[2019-03-04] MEDS: VIT A,C & E-LUTEIN-MINERALS 1 EACH TAB PO SCH (08:42)
[2019-03-04] MEDS ORDERED: ASPIRIN 325 MG TAB PO SCH (09:00)
[2019-03-04] MEDS ORDERED: AZITHROMYCIN 500 MG TAB PO SCH (09:00)
[2019-03-04 12:01] LABS: Glucose,Whole Blood 198 mg/dL (75-99)
--- NOTE | 2019-03-04 12:01 | ECHOF ---
Referral Reason:Afib RVr MEASUREMENTS -------- HEIGHT: 182.9 cm WEIGHT: 99.8 kg BP: RVIDd: 3.2 cm (< 3.3) IVSd: 1.3 cm (0.6 - 1.1) LVIDd: 4.6 cm (3.9 - 5.3) LVPWd: 1.7 cm (0.6 - 1.1) IVSs: 1.9 cm LVIDs: 3.9 cm LVPWs: 1.6 cm LA Diam: 3.9 cm (2.7 - 3.8) LAESV Index (A-L): 31.60 ml/m Ao Diam: 3.6 cm (2.0 - 3.7) AV Cusp: 2.3 cm (1.5 - 2.6) LA Diam: 3.7 cm (2.7 - 3.8) MV EXCURSION: 17.354 mm (> 18.000) MV EF SLOPE: 92 mm/s (70 - 150) EPSS: 0.7 cm MV E Juan Luis: 0.72 m/s MV DecT: 163 ms MV A Juan Luis: 0.03 m/s MV E/A Ratio: 25.18 RAP: 5.00 mmHg RVSP: 14.20 mmHg FINDINGS -------- Atrial fibrillation. This was a technically adequate study. The left ventricular size is normal. There is mild concentric left ventricular hypertrophy. Overa ll left ventricular systolic function is low-normal with, an EF between 50 - 55 %. The right ventricle is normal in size. The left atrium is mildly dilated. The right atrial size is normal. There is mild aortic valve sclerosis. There is no evidence of aortic regurgitation. Mild mitral annular calcification present. Mild mitral regurgitation is present. Mild tricuspid regurgitation present. Right ventricular systolic pressure is normal at < 35 mmHg. There is no evidence of pulmonary hypertension. There is no pulmonic regurgitation present. The aortic root size is normal. There is a trivial pericardial effusion present. CONCLUSIONS -------- 1. Atrial fibrillation. 2. This was a technically adequate study. 3. The left ventricular size is normal. 4. There is mild concentric left ventricular hypertrophy. 5. Overall left ventricular systolic function is low-normal with, an EF between 50 - 55 %. 6. The right ventricle is normal in size. 7. The left atrium is mildly dilated. 8. The right atrial size is normal. 9. There is mild aortic valve sclerosis. 10. Mild mitral annular calcification present. 11. Mild mitral regurgitation is present. 12. Mild tricuspid regurgitation present. 13. Right ventricular systolic pressure is normal at < 35 mmHg. 14. There is no evidence of pulmonary hypertension. 15. There is no pulmonic regurgitation present. 16. The aortic root size is normal. 17. There is a trivial pericardial effusion present. TITLE OFFICER: Tracy Amato RDCS
--- NOTE | 2019-03-04 14:40 | PN ---
PROGRESS NOTE This is a 73-year-old gentleman who I evaluated in the emergency room yesterday. He came in with acute bronchitis exacerbation of that and also had some reactive airway disease component, I think. Additionally, he was in and out of atrial fibrillation. I started him on flecainide and Cardizem. He has some intolerance to beta blockers. I also placed him on Lovenox. This morning he is in sinus rhythm, resting comfortably. His breathing is easier. Denies any chest pain or shortness of breath. Vitals are stable, S1-S2 heard normally. Lungs are clear. Abdomen and lower extremity exam unchanged. I am recommending that he can be discharged tomorrow if he remains stable and his respiratory status continues to show steady improvement which it has so far. I am recommending Cardizem CD 180 mg daily and flecainide 50 mg b.i.d. and Eliquis 5 mg b.i.d. I explained to the patient the rationale and importance of anticoagulation, even this Chads score is probably 2. He is agreeable. He does not wish to take beta blockers. He will follow up upon discharge in [address] Panda. MMZAHEERL / AJITN: [id number] /
--- NOTE | 2019-03-04 14:40 | P.PN ---
Subjective Progress Note Date: 03/04/19 73-year-old male patient came into the hospital because of worsening shortness of breath. He felt generalized weakness and malaise. Over the past few weeks, the patient had increased cough and congestion and he was having to take antibiotic course of doxycycline and a prednisone burst taper and over-the- counter medication. He had limited improvement and following that he had seen his primary care physician again for another round of antibiotics which included Z-Sam and prednisone taper. Unfortunately his condition did not improve. He came into the emergency department complaining of tachycardia and his heart rate was racing. He is known to have atrial fibrillation. In the ED, the patient w as found to be in atrial fibrillation with rapid ventricular response. His white cell count was slightly elevated at 13. His lactic acid was at 2.8 dropped down to 1.2 with fluid resuscitation. His first set of troponin was negative at 0.01 and second set came back at 0.05. His creatinine is at 1.2. UA shows some mild leukocytosis with a white second of 26 per high-power field. There is +1 protein. Chest x-ray showed no acute cardio pulmonary abnormalities. He is currently bronchospastic and wheezy. He is on room air oxygen. He had a pulmonary function test in our office back in 2019 and his FEV1 was in the order of 78% of predicted. He has a home nebulizer. No other maintenance inhalational treatment for now. No fever. No chills. No his cardiac rhythm is back into normal sinus rhythm for now with frequent PACs. He has not taken any form of long-term anticoagulation. 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 He also has history of melanoma that was resected from the back many years back. No smoking 03/04/2019 on seeing the patient for a follow-up. The patient is feeling better compared to yesterday. Less bronchospastic and wheezy compared to yesterday. He remains on IV Solu-Medrol 40 mg every 8 hours. He is on DuoNeb neb last treatment [id number]. He is back into normal sinus rhythm. He was started on long-term and coagulation with Eliquis by cardiology no is also started on Tambocor. No fever. No chills. No night sweats. No other co mplaints otherwise for now. Objective - Vital Signs Vital signs: Vital Signs Temp 97.9 F 03/04/19 08:00 Pulse 86 03/04/19 12:46 Resp 20 03/04/19 08:00 BP 131/61 03/04/19 08:00 Pulse Ox 94 L 03/04/19 08:14 Intake & Output 03/03/19 03/04/19 03/04/19 18:59 06:59 18:59 Intake Total 3048 360 Output Total 400 Balance 2648 360 Weight 99.79 kg 99.5 kg Intake: Intake, IV Titration 2548 Amount Sodium Chloride 0.9% 1, 999 000 ml @ 999 mls/hr IV . Q1H1M ONE Rx#:[id number] Sodium Chloride 0.9% 1, 999 000 ml @ 999 mls/hr IV . Q1H1M ONE Rx#:[id number] Sodium Chloride 0.9% 500 500 ml 500 ml @ 1000 mls/hr IV .Q30M STA Rx#: [id number] cefTRIAXone 1 gm In 50 Sodium Chloride 0.9% 50 ml @ 100 mls/hr IVPB DAILY [facility] Rx#:[id number] Oral 500 360 Output: Urine 400 Other: Voiding Method Urinal Urinal # Voids 2 2 - Exam The patient appeared well nourished and normally developed. Vital signs as documented. Head exam is unremarkable. No scleral icterus or corneal arcus noted. Neck is without jugular venous distension, thyromegaly, or carotid bruits. Carotid upstrokes are brisk bilaterally. Lungs diminished breath sounds along with scattered expiratory wheezes throughout the lung carrera bilaterally. The rhythm is irregular and the patient has sinus rhythm with frequent PACs. First and second heart sounds normal. No murmurs, rubs or gallops. Abdominal exam reveals normal bowel sounds, no masses, no organomegaly and no aortic enlargement. Extremities are nonedematous and both femoral and pedal pulses are normal.Examination of the skin revealed no evidence of significant rashes, suspicious appearing nevi or other concerning lesions. Neurologically the patient is awake and alert and is no focal neurological deficits.Examination of the skin revealed no evidence of significant rashes, suspicious appearing nevi or other concerning lesions. - Labs CBC & Chem 7: 03/04/19 05:45 03/04/19 05:45 Labs: Abnormal Lab Results - Last 24 Hours (Table) 03/03/19 03/04/19 03/04/19 Range/Units 19:37 05:45 05:45 RBC 4.23 L (4.30-5.90) m/uL Hgb 12.1 L (13.0-17.5) gm/dL Hct 38.7 L (39.0-53.0) % Glucose 183 H (74-99) mg/dL POC Glucose (mg/dL) 131 H (75-99) mg/dL LDL Cholesterol, Calc 140 H (0-99) mg/dL 03/04/19 03/04/19 Range/Units 05:50 12:00 RBC (4.30-5.90) m/uL Hgb (13.0-17.5) gm/dL Hct (39.0-53.0) % Glucose (74-99) mg/dL POC Glucose (mg/dL) 185 H 198 H (75-99) mg/dL LDL Cholesterol, Calc (0-99) mg/dL Microbiology - Last 24 Hours (Table) 03/03/19 07:25 Blood Culture - Preliminary Blood No Growth after 24 hours 03/03/19 20:11 Gram Stain - Preliminary Sputum Sputum Culture - Preliminary 03/03/19 15:54 Gram Stain - Preliminary Sputum Sputum Culture - Preliminary 03/03/19 03:10 Urine Culture - Preliminary Urine,Voided Assessment and Plan Plan: 1 acute bronchitis complicated by reactive bronchospasm wheezing with possibility of an underlying chronic asthmatic bronchitis in this patient. 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 Absent and cultures still pending. Blood cultures negative so far. Clinically improving. The Medrol has been tapered.. Started on a combination of Symbicort and Eliquis by cardiology. Still on bronchodilators. Treated IV Rocephin. We'll continue to follow.
[2019-03-04] MEDS: DILTIAZEM CD 180 MG CAP.ER.24H PO SCH (15:31)
--- NOTE | 2019-03-04 15:47 | P.PN ---
Subjective Progress Note Date: 03/04/19 This patient is 73-year-old male patient of Dr. Meza and Dr. 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 The patient gives history that he has had difficulty tolerating the Lopressor in the past. He was gradually decreased and then discontinued but he states he hasn't had trouble with bronchitis for at least the last couple weeks to month. He saw Dr. Meza a week ago and was placed on steroids, doxycycline and Mucinex. He states he has not had any atrial fibrillation for 1-1/2 years but he has found he was having palpitations and was taking metoprolol four times over the last 7 days and he feels his heart racing. Yesterday he had an episode and feeling palpitations. He felt faint and according to the floor but did not have any loss of consciousness. He had dizziness. No chest pain. He states he has never been on anticoagulation in the past. He last saw Dr. Panda 3 weeks ago and was scheduled for echocardiogram sometime in the spring. Patient was brought into [facility] emergency center. Initial EKG was atrial fibrillation at a heart rate of 170. Patient coughed and converted to normal sinus rhythm. He has had small episodes of intermittent A. fib, currently sinus rhythm with PACs. Patient has afebrile, heart rate currently 58, blood pressure 98/62, pulse ox 92% on 2 L nasal cannula. WBC 13.3, hemoglobin 12.6, platelet count 285. BUN 18 creatinine 1.9, potassium 3.9, lactic acid 2.8 with repeat at 1.3, ALT 84, alkaline phosphatase 193. Initial troponin 0.012 and repeated 0.054. TSH 1.390 and free T4 1 0.56. Urinalysis clear, nitrite and leukoesterase negative. Chest x-ray shows no acute cardiopulmonary disease. Patient is seen in the ER and consult in place for pulmonary medicine and cardiology. 03/04: Patient's breathing status is improved today. He states he has a cough. He ate okay. He denies any nausea or vomiting. Solu-Medrol is currently at 60 mg IV every 6 hours and will be decreased to 40 mg every 8 hour. Cardiology has started the patient on Cardizem CD 180 mg daily, flecainide 50 mg every 12 hours and eliquis 5 mg twice daily. Patient is also followed by pulmonary medicine. Review of Systems Constitutional: Reports fatigue, Reports weakness, Denies anorexia, Denies chills Ears, nose, mouth and throat: Denies headache, Denies nasal congestion, Denies nasal discharge, Denies sore throat, Denies vertigo Cardiovascular: Reports lightheadedness, Denies chest pain, Denies dyspnea on exertion Respiratory: Reports cough, Reports cough with sputum, Reports dyspnea, Reports respiratory infections, Reports wheezing, Denies home oxygen Gastrointestinal: Denies abdominal pain, Denies diarrhea, Denies loss of appetite, Denies nausea, Denies vomiting Genitourinary: Denies dysuria, Denies urinary retention Musculoskeletal: Reports muscle weakness, Denies frequent falls, Denies gait dysfunction, Denies myalgias Integumentary: Denies pruritus, Denies rash, Denies wounds Neurological: Denies change in mentation, Denies change in speech, Denies numbness, Denies seizures, Denies weakness Psychiatric: Denies anxiety, Denies depression Endocrine: Denies fatigue, Denies weight change Objective - Vital Signs Vital signs: Vital Signs Temp 97.9 F 03/04/19 08:00 Pulse 84 03/04/19 08:41 Resp 20 03/04/19 08:00 BP 131/61 03/04/19 08:00 Pulse Ox 94 L 03/04/19 08:14 Intake & Output 03/03/19 03/04/19 03/04/19 18:59 06:59 18:59 Intake Total 3048 240 Output Total 400 Balance 2648 240 Weight 99.79 kg 99.5 kg Intake: Intake, IV Titration 2548 Amount Sodium Chloride 0.9% 1, 999 000 ml @ 999 mls/hr IV . Q1H1M ONE Rx#:[id number] Sodium Chloride 0.9% 1, 999 000 ml @ 999 mls/hr IV . Q1H1M ONE Rx#:[id number] Sodium Chloride 0.9% 500 500 ml 500 ml @ 1000 mls/hr IV .Q30M STA Rx#: [id number] cefTRIAXone 1 gm In 50 Sodium Chloride 0.9% 50 ml @ 100 mls/hr IVPB DAILY [facility]YSON Rx#:[id number] Oral 500 240 Output: Urine 400 Other: Voiding Method Urinal Urinal # Voids 2 2 - Exam Gen: This is a 73-year-old male. He is sitting on the ER stretcher and appears to be comfortable and in no acute distress. HEENT: Head is atraumatic, normocephalic. Pupils equal, round. Sclerae is anicteric. NECK: Supple. No JVD. No lymphadenopathy. No thyromegaly. LUNGS: Scatteredexpiratory wheeze. No intercostal retractions. HEART: Irregular rate and rhythm. No murmur. radiation monitor sinus rhythm with PACs. ABDOMEN: Soft. Bowel sounds are present. No masses. No tenderness. EXTREMITIES: No pedal edema. No calf tenderness. Dorsalis pedis +2 bilaterally. NEUROLOGICAL: Patient is awake, alert and oriented x3. Cranial nerves 2 through 12 are grossly intact. - Labs CBC & Chem 7: 03/04/19 05:45 03/04/19 05:45 Labs: Abnormal Lab Results - Last 24 Hours (Table) 03/03/19 03/03/19 03/04/19 Range/Units 13:17 19:37 05:45 RBC (4.30-5.90) m/uL Hgb (13.0-17.5) gm/dL Hct (39.0-53.0) % Glucose 183 H (74-99) mg/dL POC Glucose (mg/dL) 131 H (75-99) mg/dL Troponin I 0.038 H* (0.000-0.034) ng/mL LDL Cholesterol, Calc 140 H (0-99) mg/dL 03/04/19 03/04/19 Range/Units 05:45 05:50 RBC 4.23 L (4.30-5.90) m/uL Hgb 12.1 L (13.0-17.5) gm/dL Hct 38.7 L (39.0-53.0) % Glucose (74-99) mg/dL POC Glucose (mg/dL) 185 H (75-99) mg/dL Troponin I (0.000-0.034) ng/mL LDL Cholesterol, Calc (0-99) mg/dL Microbiology - Last 24 Hours (Table) 03/03/19 07:25 Blood Culture - Preliminary Blood No Growth after 24 hours 03/03/19 20:11 Gram Stain - Preliminary Sputum Sputum Culture - Preliminary 03/03/19 15:54 Gram Stain - Preliminary Sputum Sputum Culture - Preliminary 03/03/19 03:10 Urine Culture - Preliminary Urine,Voided Assessment and Plan Plan: 1. A. fib with RVR, paroxysmal atrial fibrillation. Patient has converted to a sinus rhythm. Cardiology consult appreciated. Cardiology has started the patient on Cardizem CD 180 mg daily, flecainide 50 mg every 12 hours and eliquis 5 mg twice daily. 2. Acute bronchitis with reactive bronchospasm and wheezing with possible underlying chronic asthmatic bronchitis. Consult with Dr. herrera and appreciated. Continue DuoNeb treatments 3 times daily and as needed, azithromycin and ceftriaxone, Pulmicort 1 mg twice daily, Perforomist twice daily, Solu-Medrol decreased to 40 mg IV every 8 hours. 3. Mantle cell lymphoma status post bone marrow transplantation, stable. 4. History of basal cell carcinoma. 5. DVT prophylaxis. Lovenox. 6. GI prophylaxis. Protonix. Discharge plan: Return home on Impression and plan of care have been directed as dictated by the signing physician. Gianna Silver nurse practitioner acting as scribe for signing physician.
[2019-03-04] MEDS: methylPREDNISolone SOD SUCCI 40 MG/ML 1 ML VIAL IV SCH ×2 (16:05→23:43)
[2019-03-04] MEDS: APIXABAN 5 MG TAB PO SCH ×2 (16:06→20:30)
[2019-03-04 17:06] LABS: Glucose,Whole Blood 132 mg/dL (75-99)
[2019-03-04 20:28] LABS: Glucose,Whole Blood 205 mg/dL (75-99)
[2019-03-05 06:28] LABS: Glucose,Whole Blood 145 mg/dL (75-99)
[2019-03-05] MEDS: INSULIN ASPART (NovoLOG) 100 UNIT/ML VIAL SQ SCH ×2 (06:30→12:45)
[2019-03-05] MEDS ORDERED: FLECAINIDE 50 MG TAB PO SCH (08:00)
[2019-03-05] MEDS: IPRATROPIUM-ALBUTEROL 3 ML NEB INHALATION SCH ×2 (08:06→13:32)
[2019-03-05] MEDS: FORMOTEROL FUMARATE 20 MCG/2 ML NEBU INHALATION SCH (08:06)
[2019-03-05] MEDS: BUDESONIDE 1 MG/2 ML NEBU INHALATION SCH (08:07)
[2019-03-05] MEDS: DILTIAZEM CD 180 MG CAP.ER.24H PO SCH (09:11)
[2019-03-05] MEDS: APIXABAN 5 MG TAB PO SCH (09:11)
[2019-03-05] MEDS: MELOXICAM 7.5 MG TAB PO SCH (09:11)
[2019-03-05] MEDS: CHOLECALCIFEROL 1,000 UNIT TAB PO SCH (09:11)
[2019-03-05] MEDS: methylPREDNISolone SOD SUCCI 40 MG/ML 1 ML VIAL IV SCH (09:12)
[2019-03-05] MEDS: VIT A,C & E-LUTEIN-MINERALS 1 EACH TAB PO SCH (09:19)
[2019-03-05 11:23] VITALS: BP 124/64; TEMP 97.7
[2019-03-05 11:50] VITALS: RESP 14
[2019-03-05 11:52] VITALS: PULSE 87
[2019-03-05 11:54] LABS: Glucose,Whole Blood 129 mg/dL (75-99)
--- NOTE | 2019-03-05 12:17 | PN ---
PROGRESS NOTE Mr. Jackson is doing well today. Remains in sinus rhythm, asymptomatic, doing well. His respiratory symptoms have resolved. His bronchitis is better. Vitals are stable, no JVD, S1-S2 heard normally, short systolic murmur noted. Lungs are clear. Abdomen and lower extremity exam unchanged. Plan is to discharge him on flecainide, Cardizem and Eliquis. He will see Dr. Panda in 1-2 weeks. Advised to call if he has a question. concern or problem. MMODL / IJN: [id number] /
--- NOTE | 2019-03-05 14:17 | P.PN ---
Subjective Progress Note Date: 03/05/19 Principal diagnosis: Acute bronchitis, complicated by reactive bronchospasm 73-year-old male patient came into the hospital because of worsening shortness of breath. He felt generalized weakness and malaise. Over the past few weeks, the patient had increased cough and congestion and he was having to take antibiotic course of doxycycline and a prednisone burst taper and over -the-counter medication. He had limited improvement and following that he had seen his primary care physician again for another round of antibiotics which included Z-Sam and prednisone taper. Unfortunately his condition did not improve. He came into the emergency department complaining of tachycardia and his heart rate was racing. He is known to have atrial fibrillation. In the ED, the patient was found to be in atrial fibrillation with rapid ventricular response. His white cell count was slightly elevated at 13. His lactic acid was at 2.8 dropped down to 1.2 with fluid resuscitation. His first set of troponin was negative at 0.01 and second set came back at 0.05. His creatinine is at 1.2. UA shows some mild leukocytosis with a white second of 26 per high- power field. There is +1 protein. Chest x-ray showed no acute cardio pulmonary abnormalities. He is currently bronchospastic and wheezy. He is on room air oxygen. He had a pulmonary function test in our office back in 2019 and his FEV1 was in the order of 78% of predicted. He has a home nebulizer. No other maintenance inhalational treatment for now. No fever. No chills. No his cardiac rhythm is back into normal sinus rhythm for now with frequent PACs. He has not taken any form of long-term anticoagulation. 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 He also has history of melanoma that was resected from the back many years back. No smoking 03/04/2019 on seeing the patient for a follow-up. The patient is feeling better compared to yesterday. Less bronchospastic and wheezy compared to yesterday. He remains on IV Solu-Medrol 40 mg every 8 hours. He is on DuoNeb neb last treatment [id number]. He is back into normal sinus rhythm. He was started on long-term and coagulation with Eliquis by cardiology no is also started on Tambocor. No fever. No chills. No night sweats. No other complaints otherwise for now. On 03/05/2019 patient is seen in follow-up on foot care unit, he states his breathing continues to improve, only slight residual congestion and minimal wheezing, overall much improved since admission. He is on room air, his pulse ox is 95%, hemodynamically stable, afebrile, blood urine and sputum cultures have been negative thus far, she has been treated with antibiotics, steroids, and bronchodilators, improved, patient has converted to sinus rhythm since admission, he has been started on long-term anticoagulation with Eliquis by cardiology as well as flecainide. No complaints of worsening dyspnea, patient has been ambulating tolerating activity well, no complaints of chest pain. Objective - Vital Signs Vital signs: Vital Signs Temp 97.7 F 03/05/19 08:00 Pulse 87 03/05/19 11:51 Resp 14 03/05/19 11:51 BP 124/64 03/05/19 08:00 Pulse Ox 95 03/05/19 08:07 Intake & Output 03/04/19 03/05/19 03/05/19 18:59 06:59 18:59 Intake Total 600 720 Output Total 200 Balance 600 -200 720 Weight 100.2 kg Intake: Oral 600 720 Output: Urine 200 Other: Voiding Method Urinal Urinal # Voids 4 1 - Exam GENERAL EXAM: Alert, pleasant, 73-year-old white male, on room air comfortable in no apparent distress. HEAD: Normocephalic/atraumatic. EYES: Normal reaction of pupils, equal size. Conjunctiva pink, sclera white. NOSE: Clear with pink turbinates. THROAT: No erythema or exudates. NECK: No masses, no JVD, no thyroid enlargement, no adenopathy. CHEST: No chest wall deformity. Symmetrical expansion. LUNGS: Equal air entry with bibasilar crackles, and a few scattered end expiratory wheezes CVS: Regular rate and rhythm, normal S1 and S2, no gallops, no murmurs, no rubs ABDOMEN: Soft, nontender. No hepatosplenomegaly, normal bowel sounds, no guarding or rigidity. EXTREMITIES: No clubbing, no edema, no cyanosis, 2+ pulses and upper and lower extremities. MUSCULOSKELETAL: Muscle strength and tone normal. SPINE: No scoliosis or deformity SKIN: No rashes CENTRAL NERVOUS SYSTEM: Alert and oriented -3. No focal deficits, tone is normal in all 4 extremities. PSYCHIATRIC: Alert and oriented -3. Appropriate affect. Intact judgment and insight. - Labs CBC & Chem 7: 03/04/19 05:45 03/04/19 05:45 Labs: Abnormal Lab Results - Last 24 Hours (Table) 03/04/19 03/04/19 03/05/19 Range/Units 17:04 20:26 06:26 POC Glucose (mg/dL) 132 H 205 H 145 H (75-99) mg/dL 03/05/19 Range/Units 11:51 POC Glucose (mg/dL) 129 H (75-99) mg/dL Microbiology - Last 24 Hours (Table) 03/03/19 15:54 Gram Stain - Final Sputum Sputum Culture - Final 03/03/19 07:25 Blood Culture - Preliminary Blood No Growth after 48 hours 03/03/19 03:10 Urine Culture - Final Urine,Voided Assessment and Plan Plan: Assessment: #1. Acute bronchitis complicated by reactive bronchospasm and wheezing with possibility of underlying chronic asthmatic bronchitis. Patient outpatient PFT showed FEV1 of 78-84% of predicted 2018 #2. Shortness of breath secondary to the above #3. A. fib with RVR, currently back in sinus rhythm #4. Mantle cell lymphoma postpone marrow transplantation #5. History of basal cell carcinoma #6. History of melanoma #7. Remote history of pancreatitis, related to history of alcohol abuse Plan: Patient is doing well, continues to improve, breathing is improving, he remains in sinus rhythm, he has been started on Eliquis and flecainide cardiology, no acute events overnight, no fever or chills. Patient is being discharged home on oral course of antibiotics prednisone taper, and he can resume his Symbicort and Ventolin inhaler, follow-up with Dr. Dunn in the office in 7-10 days. Patient wanted to set up his own appointment. I performed a history & physical examination of the patient and discussed their management with my nurse practitioner, Odilia Linder. I reviewed the nurse practitioner's note and agree with the documented findings and plan of care. Lung sounds are positive for bibasilar crackles, minimal end expiratory wheezes. The findings and the impression was discussed with the patient. I attest to the documentation by the nurse practitioner. Time with Patient: Less than 30
--- NOTE | 2019-03-06 09:13 | P.DS ---
Providers Date of admission: 03/03/19 05:54 Expected date of discharge: 03/05/19 Attending physician: Camelia Salamanca Consults: 03/03/19 05:54 Consult Physician Routine Consulting Provider: Vidhi Panda Consult Reason/Comments: A. fib with RVR. Do you want consulting provider notified?: Yes 03/03/19 11:38 Consult Physician Routine Consulting Provider: Olman Dunn Consult Reason/Comments: copd, bronchitis Do you want consulting provider notified?: Yes Primary care physician: [facility] [place] Course: This patient is 73-year-old male patient of Dr. Meza and Dr. 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 The patient gives history that he has had difficulty tolerating the Lopressor in the past. He was gradually decreased and then discontinued but he states he hasn't had trouble with bronchitis for at least the last couple weeks to month. He saw Dr. Meza a week ago and was placed on steroids, doxycycline and Mucinex. He states he has not had any atrial fibrillation for 1-1/2 years but he has found he was having palpitations and was taking metoprolol four times over the last 7 days and he feels his heart racing. Yesterday he had an episode and feeling palpitations. He felt faint and according to the floor but did not have any loss of consciousness. He had dizziness. No chest pain. He states he has never been on anticoagulation in the past. He last saw Dr. Panda 3 weeks ago and was scheduled for echocardiogram sometime in the spring. Patient was brought into [facility] emergency center. Initial EKG was atrial fibrillation at a heart rate of 170. Patient coughed and converted to normal sinus rhythm. He has had small episodes of intermittent A. fib, currently sinus rhythm with PACs. Patient has afebrile, heart rate currently 58, blood pressure 98/62, pulse ox 92% on 2 L nasal cannula. WBC 1 3.3, hemoglobin 12.6, platelet count 285. BUN 18 creatinine 1.9, potassium 3.9, lactic acid 2.8 with repeat at 1.3, ALT 84, alkaline phosphatase 193. Initial troponin 0.012 and repeated 0.054. TSH 1.390 and free T4 1 0.56. Urinalysis clear, nitrite and leukoesterase negative. Chest x-ray shows no acute cardiopulmonary disease. Patient is seen in the ER and consult in place for pulmonary medicine and cardiology. 03/04: Patient's breathing status is improved today. He states he has a cough. He ate okay. He denies any nausea or vomiting. Solu-Medrol is currently at 60 mg IV every 6 hours and will be decreased to 40 mg every 8 hour. Cardiology has started the patient on Cardizem CD 180 mg daily, flecainide 50 mg every 12 hours and eliquis 5 mg twice daily. Patient is also followed by pulmonary medicine. 03/05: Patient's heart rate has been controlled, normal sinus rhythm, pulse ox 95% on room air, afebrile, blood culture, urine culture sputum culture are negative. Patient has been cleared for discharge by consultants. Patient will be discharged home today in stable condition. Discharge diagnoses: 1. A. fib with RVR, paroxysmal atrial fibrillation. Patient has converted to a sinus rhythm. 2. Acute bronchitis with reactive bronchospasm and wheezing with possible underlying chronic asthmatic bronchitis. 3. Mantle cell lymphoma status post bone marrow transplantation, stable. 4. History of basal cell carcinoma. Discharge plan: Return home Impression and plan of care have been directed as dictated by the signing physician. Gianna Silver nurse practitioner acting as scribe for signing physician. Patient Condition at Discharge: Good Plan - Discharge Summary Discharge Rx Participant: No New Discharge Prescriptions: New Diltiazem Cd [Cardizem CD] 180 mg PO DAILY #30 cap.er.24h Cefuroxime [Ceftin] 250 mg PO BID #14 tablet Apixaban [Eliquis] 5 mg PO BID #60 tab Nystatin 100,000 Unit/ml Susp [Mycostatin Oral Susp] 5 ml PO QID #140 ml predniSONE 0 mg PO DIRECTED #30 tab Flecainide [Tambocor] 50 mg PO Q12H #60 tab Continue Meloxicam 7.5 mg PO DAILY ALPRAZolam [Xanax] 0.25 mg PO TID PRN PRN Reason: Anxiety Budesonide/Formoterol Fumarate [Symbicort 160-4.5 Mcg Inhaler] 2 puff INHALATION RT-BID PRN PRN Reason: Dyspnea Albuterol Inhaler [Ventolin Hfa Inhaler] 1 - 2 puff INHALATION RT-QID PRN PRN Reason: Wheezing Glucosam/Amador-Msm1/C/Julio/Bosw [Glucosamine-Chondroitin Tablet] 1 tab PO DAILY Gentle Iron 28 1 cap PO DAILY Magnesium Gluconate 100mg 100 mg PO DAILY Fish Oil/Dha/Epa [Fish Oil 1,200 mg Fish Oil] 1 cap PO DAILY Turmeric Root Extract [Turmeric] 500 mg PO DAILY Cholecalciferol [Vitamin D3 (25 Mcg = 1000 Iu)] 1,000 unit PO DAILY Mucinex D 600-60 1 tab PO BID Ascorbic Acid [Vitamin C] 1,000 mg PO DAILY Acetaminophen Tab [Tylenol] 1,000 mg PO Q6HR PRN PRN Reason: Pain Albuterol Nebulized [Ventolin Nebulized] 2.5 mg INHALATION RT-Q6H Codeine Phosphate/Guaifenesin [Guaiatussin AC Liquid] 10 ml PO Q4H PRN PRN Reason: Cough Tylenol Sinus And Headache 2 cap PO Q4H PRN PRN Reason: Congestion Discontinued predniSONE See Taper PO DAILY Metoprolol Tartrate [Lopressor] 25 mg PO DAILY PRN PRN Reason: Blood Pressure - High Doxycycline [Vibramycin] 100 mg PO DAILY Discharge Medication List ALPRAZolam [Xanax] 0.25 mg PO TID PRN 01/12/14 [History] Meloxicam 7.5 mg PO DAILY 01/12/14 [History] Albuterol Inhaler [Ventolin Hfa Inhaler] 1 - 2 puff INHALATION RT-QID PRN 06/24/17 [History] Budesonide/Formoterol Fumarate [Symbicort 160-4.5 Mcg Inhaler] 2 puff INHALATION RT-BID PRN 06/24/17 [History] Glucosam/Amador-Msm1/C/Julio/Bosw [Glucosamine-Chondroitin Tablet] 1 tab PO DAILY 06/24/17 [History] Acetaminophen Tab [Tylenol] 1,000 mg PO Q6HR PRN 03/03/19 [History] Albuterol Nebulized [Ventolin Nebulized] 2.5 mg INHALATION RT-Q6H 03/03/19 [History] Ascorbic Acid [Vitamin C] 1,000 mg PO DAILY 03/03/19 [History] Cholecalciferol [Vitamin D3 (25 Mcg = 1000 Iu)] 1,000 unit PO DAILY 03/03/19 [History] Codeine Phosphate/Guaifenesin [Guaiatussin AC Liquid] 10 ml PO Q4H PRN 03/03/19 [History] Fish Oil/Dha/Epa [Fish Oil 1,200 mg Fish Oil] 1 cap PO DAILY 03/03/19 [History] Gentle Iron 28 1 cap PO DAILY 03/03/19 [History] Magnesium Gluconate 100mg 100 mg PO DAILY 03/03/19 [History] Mucinex D 600-60 1 tab PO BID 03/03/19 [History] Turmeric Root Extract [Turmeric] 500 mg PO DAILY 03/03/19 [History] Tylenol Sinus And Headache 2 cap PO Q4H PRN 03/03/19 [History] Apixaban [Eliquis] 5 mg PO BID #60 tab 03/05/19 [Rx] Cefuroxime [Ceftin] 250 mg PO BID #14 tablet 03/05/19 [Rx] Diltiazem Cd [Cardizem CD] 180 mg PO DAILY #30 cap.er.24h 03/05/19 [Rx] Flecainide [Tambocor] 50 mg PO Q12H #60 tab 03/05/19 [Rx] Nystatin 100,000 Unit/ml Susp [Mycostatin Oral Susp] 5 ml PO QID #140 ml 03/05/19 [Rx] predniSONE 0 mg PO DIRECTED #30 tab 03/05/19 [Rx] Follow up Appointment(s)/Referral(s): Vidhi Panda MD [STAFF PHYSICIAN] - 1 Week Hemanth Meza MD [Primary Care Provider] - 1-2 days Olman Dunn MD [STAFF PHYSICIAN] - 4 Weeks (Wrapper Hand- Please have insurance card present when you call for an appointment. ) Patient Instructions/Handouts: A-fib (Atrial Fibrillation) (DC), Acute Bronchitis (ED), Safe Use of Anticoagulants (DC) Activity/Diet/Wound Care/Special Instructions: Patient prefers to make his own follow up appointments. Eliquis $40 copay. Discharge Disposition: HOME SELF-CARE
== END 2019-03-05 14:24 | disposition home or self-care (01) ==
LOC: EC 01:04 → 3SCARD 05:54
PROVIDERS: ADMIT Internal Medicine; ATTEND Internal Medicine
DX: I48.19 Other persistent atrial fibrillation (principal); J20.9 Acute bronchitis, unspecified; J44.0 Chronic obstructive pulmonary disease with (acute) lower respiratory infection; Z85.72 Personal history of non-Hodgkin lymphomas; Z94.81 Bone marrow transplant status; Z85.820 Personal history of malignant melanoma of skin; Z85.828 Personal history of other malignant neoplasm of skin; I49.1 Atrial premature depolarization; E87.2 Acidosis; I95.9 Hypotension, unspecified; M19.90 Unspecified osteoarthritis, unspecified site; K44.9 Diaphragmatic hernia without obstruction or gangrene; I08.8 Other rheumatic multiple valve diseases; Z79.899 Other long term (current) drug therapy; Z79.51 Long term (current) use of inhaled steroids; Z79.52 Long term (current) use of systemic steroids; Z88.0 Allergy status to penicillin; Z88.8 Allergy status to other drugs, medicaments and biological substances; Z98.890 Other specified postprocedural states; Z96.651 Presence of right artificial knee joint; Z87.19 Personal history of other diseases of the digestive system; F10.11 Alcohol abuse, in remission; Z92.21 Personal history of antineoplastic chemotherapy; Z86.79 Personal history of other diseases of the circulatory system; Z80.7 Family history of other malignant neoplasms of lymphoid, hematopoietic and related tissues; Z83.49 Family history of other endocrine, nutritional and metabolic diseases; Z82.49 Family history of ischemic heart disease and other diseases of the circulatory system; Z80.6 Family history of leukemia
CPT/HCPCS: 96376 ×3; 96366; 96372 ×2; 93005 ×2; 96361; 96365; 96375; 99291; 36415; 94640 ×5; 94760 ×2; 93306; 84439; 83880; 80061; 80053; 80048; 83605; 83735; 84443; 84484; 85025 ×2; 85610; 85730; 81001; 87040; 87070; 87086; 87205; 87502; 71045; G0378 ×3; J2920 ×2; J2930 ×2; J1650 ×2; J0696 ×3

== ENCOUNTER 2019-03-08 10:03 | Observation (INO) | payer MEDICARE ==
[2019-03-08] MEDS ORDERED: SODIUM CHLORIDE 0.9% 500 ML 500 ML IV ONE (10:41)
--- NOTE | 2019-03-08 10:41 | ED ---
General Adult HPI - General Chief complaint: Arrhythmia/Palpitations Stated complaint: cardiac issues Time Seen by Provider: 03/08/19 10:21 Source: patient, EMS, RN notes reviewed, old records reviewed Mode of arrival: EMS Limitations: no limitations - History of Present Illness Initial comments: 73-year-old male presenting for evaluation palpitations and elevated heart rate. Patient has some associated lightheadedness. He was recently admitted with Gian barroso with RVR. He had several medication changes. He was previously on metoprolol, currently on Cardizem and flecainide. He is anticoagulated. He denies associated chest pain. Denies dyspnea. Denies vomiting or diarrhea. Denies fever. Patient has been compliant with his medications. He took his medications approximately 90 minutes prior to arrival. - Related Data Home Medications Medication Instructions Recorded Confirmed ALPRAZolam [Xanax] 0.25 mg PO TID PRN 01/12/14 03/03/19 Meloxicam 7.5 mg PO DAILY 01/12/14 03/03/19 Albuterol Inhaler [Ventolin Hfa 1 - 2 puff INHALATION RT-QID PRN 06/24/17 03/03/19 Inhaler] Budesonide/Formoterol Fumarate 2 puff INHALATION RT-BID PRN 06/24/17 03/03/19 [Symbicort 160-4.5 Mcg Inhaler] Glucosam/Amador-Msm1/C/Julio/Bosw 1 tab PO DAILY 06/24/17 03/03/19 [Glucosamine-Chondroitin Tablet] Acetaminophen Tab [Tylenol] 1,000 mg PO Q6HR PRN 03/03/19 03/03/19 Albuterol Nebulized [Ventolin 2.5 mg INHALATION RT-Q6H 03/03/19 03/03/19 Nebulized] Ascorbic Acid [Vitamin C] 1,000 mg PO DAILY 03/03/19 03/03/19 Cholecalciferol [Vitamin D3 (25 1,000 unit PO DAILY 03/03/19 03/03/19 Mcg = 1000 Iu)] Codeine Phosphate/Guaifenesin 10 ml PO Q4H PRN 03/03/19 03/03/19 [Guaiatussin AC Liquid] Fish Oil/Dha/Epa [Fish Oil 1,200 1 cap PO DAILY 03/03/19 03/03/19 mg Fish Oil] Gentle Iron 28 1 cap PO DAILY 03/03/19 03/03/19 Magnesium Gluconate 100mg 100 mg PO DAILY 03/03/19 03/03/19 Mucinex D 600-60 1 tab PO BID 03/03/19 03/03/19 Turmeric Root Extract [Turmeric] 500 mg PO DAILY 03/03/19 03/03/19 Tylenol Sinus And Headache 2 cap PO Q4H PRN 03/03/19 03/03/19 Previous Rx's Medication Instructions Recorded Apixaban [Eliquis] 5 mg PO BID #60 tab 03/05/19 Cefuroxime [Ceftin] 250 mg PO BID #14 tablet 03/05/19 Diltiazem Cd [Cardizem CD] 180 mg PO DAILY #30 cap.er.24h 03/05/19 Flecainide [Tambocor] 50 mg PO Q12H #60 tab 03/05/19 Nystatin 100,000 Unit/ml Susp 5 ml PO QID #140 ml 03/05/19 [Mycostatin Oral Susp] predniSONE 0 mg PO DIRECTED #30 tab 03/05/19 Allergies Allergy/AdvReac Type Severity Reaction Status Date / Time Penicillins Allergy Severe Rash/Hives Verified 03/03/19 06:41 benzonatate Allergy Dyspnea Verified 03/03/19 06:41 [From Harper Yanez] Review of Systems ROS Statement: Those systems with pertinent positive or pertinent negative responses have been documented in the HPI. ROS Other: All systems not noted in ROS Statement are negative. Past Medical History Past Medical History: Atrial Fibrillation, Cancer, COPD, Osteoarthritis (OA) Additional Past Medical History / Comment(s): mantle lymphoma, basal cell carcinoma History of Any Multi-Drug Resistant Organisms: None Reported Past Surgical History: Hernia Repair Additional Past Surgical History / Comment(s): removal of skin cancer Past Anesthesia/Blood Transfusion Reactions: No Reported Reaction Past Psychological History: No Psychological Hx Reported Smoking Status: Never smoker Past Alcohol Use History: Occasional Past Drug Use History: None Reported - Past Family History Brother(s) Family Medical History: Cancer Additional Family Medical History / Comment(s): Patient has 2 brothers and both have passed one from multiple myeloma and one from multiple problems from obesity. Father Family Medical History: No Reported History Additional Family Medical History / Comment(s): Father was healthy and lived to be 95 yrs old. Mother Family Medical History: Vascular Disorder Additional Family Medical History / Comment(s): Mother at the age of 74 yrs from a ruptured aortic aneurysm. Son(s) Additional Family Medical History / Comment(s): Patient has 2 sons with no major medical problems. Patient doesn't have any sisters. General Exam Limitations: no limitations General appearance: alert, in no apparent distress Head exam: Present: atraumatic, normocephalic Eye exam: Present: normal appearance, PERRL ENT exam: Present: normal exam Neck exam: Present: normal inspection. Absent: tenderness, meningismus Respiratory exam: Present: normal lung sounds bilaterally. Absent: respiratory distress, wheezes Cardiovascular Exam: Present: normal rhythm, tachycardia GI/Abdominal exam: Present: soft. Absent: distended, tenderness, guarding Neurological exam: Present: alert, oriented X3, CN II-XII intact. Absent: motor sensory deficit Psychiatric exam: Present: normal affect, normal mood Skin exam: Present: warm, dry, intact. Absent: cyanosis, diaphoretic Course Vital Signs 03/08/19 03/08/19 03/08/19 10:07 10:10 11:10 Temperature 98.1 F Pulse Rate 127 H 128 H Pulse Rate [ 125 H Wireless Technician ] Respiratory 18 20 Rate Blood Pressure 142/94 126/81 O2 Sat by Pulse 97 98 Oximetry EKG Findings - EKG Comments: EKG Findings:: EKG: Sinus tachycardia, rate of 127, IN interval 166, QRS duration 98, QTC 450, ST segment depression in the precordial leads and inferior leads. No ST segment elevation. Medical Decision Making - Medical Decision Making 73-year-old male presenting with palpitations and lightheadedness. Patient is in sinus tachycardia rate of 1:30. He has no associated dyspnea, no chest pain. EKG does show ST segment depression no ST segment elevation. Patient had taken his flecainide, and Cardizem prior to arrival. He is anticoagulated on Eliquis. Chest x-ray negative for acute cardiopulmonary disease. Normal CBC, normal CMP, initial troponin is negative. Case discussed with Dr. Vizcaino, will be placed in observation for rate control, serial cardiac enzymes, telemetry, cardiology consultation. - Lab Data Result diagrams: 03/08/19 10:39 03/08/19 10:39 Lab Results 03/08/19 03/08/19 03/08/19 Range/Units 10:39 10:39 10:39 WBC 12.5 H (3.8-10.6) k/uL RBC 4.71 (4.30-5.90) m/uL Hgb 13.4 (13.0-17.5) gm/dL Hct 42.9 (39.0-53.0) % MCV 91.1 (80.0-100.0) fL MCH 28.5 (25.0-35.0) pg MCHC 31.3 (31.0-37.0) g/dL RDW 13.5 (11.5-15.5) % Plt Count 308 (150-450) k/uL Neutrophils % 76 % Lymphocytes % 15 % Monocytes % 5 % Eosinophils % 2 % Basophils % 1 % Neutrophils # 9.4 H (1.3-7.7) k/uL Lymphocytes # 1.9 (1.0-4.8) k/uL Monocytes # 0.6 (0-1.0) k/uL Eosinophils # 0.2 (0-0.7) k/uL Basophils # 0.1 (0-0.2) k/uL Sodium 140 (137-145) mmol/L Potassium 4.6 (3.5-5.1) mmol/L Chloride 105 (98-107) mmol/L Carbon Dioxide 29 (22-30) mmol/L Anion Gap 6 mmol/L BUN 24 H (9-20) mg/dL Creatinine 0.92 (0.66-1.25) mg/dL Est GFR (CKD-EPI)AfAm >90 (>60 ml/min/1.73 sqM) Est GFR (CKD-EPI)NonAf 84 (>60 ml/min/1.73 sqM) Glucose 92 (74-99) mg/dL Calcium 8.9 (8.4-10.2) mg/dL Magnesium 2.2 (1.6-2.3) mg/dL Total Bilirubin 0.6 (0.2-1.3) mg/dL AST 42 (17-59) U/L ALT 54 H (4-49) U/L Alkaline Phosphatase 116 (38-126) U/L Troponin I <0.012 (0.000-0.034) ng/mL Total Protein 6.4 (6.3-8.2) g/dL Albumin 3.5 (3.5-5.0) g/dL Disposition Clinical Impression: Sinus tachycardia Disposition: ADMITTED IP TO THIS HOSP Condition: Stable Is patient prescribed a controlled substance at d/c from ED?: No Referrals: Hemanth Meza MD [Primary Care Provider] - 1-2 days Decision to Admit Reason: Admit from EC Decision Date: 03/08/19 Decision Time: 11:48
[2019-03-08 10:51] LABS: Basophils # (A) 0.1 k/uL (0-0.2); Basophils % (A) 1 %; Eosinophils # (A) 0.2 k/uL (0-0.7); Eosinophils % (A) 2 %; HCT 42.9 % (39.0-53.0); HGB 13.4 gm/dL (13.0-17.5); Lymphocytes # (A) 1.9 k/uL (1.0-4.8); Lymphocytes % (A) 15 %; MCH 28.5 pg (25.0-35.0); MCHC 31.3 g/dL (31.0-37.0); MCV 91.1 fL (80.0-100.0); Mean Platelet Volume 8.7; Monocytes # (A) 0.6 k/uL (0-1.0); Monocytes % (A) 5 %; Neutrophils # (A) 9.4 k/uL (1.3-7.7); Neutrophils % (A) 76 %; Platelet Count 308 k/uL (150-450); RBC 4.71 m/uL (4.30-5.90); RDW 13.5 % (11.5-15.5); WBC 12.5 k/uL (3.8-10.6)
--- NOTE | 2019-03-08 10:51 | XR ---
EXAMINATION TYPE: XR chest 2V DATE OF EXAM: 03/08/2019 HISTORY: dysrhythmia. REFERENCE: Previous study dated 03/03/2019. FINDINGS: The lungs are clear. Pleural space are clear. The heart is not enlarged. IMPRESSION: NO ACTIVE INTRATHORACIC DISEASE.
[2019-03-08 11:03] LABS: ALT 54 U/L (4-49); AST 42 U/L (17-59); African American GFR (CKD) >90 (>60 ml/min/1.73 sqM); Albumin 3.5 g/dL (3.5-5.0); Alkaline Phosphatase 116 U/L (38-126); Anion Gap 6 mmol/L; Blood Urea Nitrogen 24 mg/dL (9-20); Calcium 8.9 mg/dL (8.4-10.2); Carbon Dioxide 29 mmol/L (22-30); Chloride 105 mmol/L (98-107); Glucose 92 mg/dL (74-99); Magnesium 2.2 mg/dL (1.6-2.3); Non-African American GFR(CKD) 84 (>60 ml/min/1.73 sqM); Potassium 4.6 mmol/L (3.5-5.1); Sodium 140 mmol/L (137-145); Total Bilirubin 0.6 mg/dL (0.2-1.3); Total Protein 6.4 g/dL (6.3-8.2)
[2019-03-08] MEDS ORDERED: DILTIAZEM 125 MG in SODIUM CHLORIDE 0.9% 100 ML IV SCH (11:15)
[2019-03-08 11:16] LABS: INR 0.9 (<1.2); Prothrombin Time 9.6 sec (9.0-12.0)
[2019-03-08] MEDS ORDERED: DILTIAZEM DRIP BOLUS FROM BAG 1 MG SOLN IV ONE ×2 (11:41→17:46)
[2019-03-08] MEDS ORDERED: ACETAMINOPHEN TAB 325 MG TAB PO PRN (11:43)
[2019-03-08] MEDS ORDERED: NALOXONE 0.4 MG/ML 1 ML VIAL IV PRN (11:43)
[2019-03-08 12:02] LABS: Partial Thromboplastin Time 21.8 sec (22.0-30.0)
[2019-03-08] MEDS ORDERED: ALPRAZolam 0.25 MG TAB PO PRN (13:36)
[2019-03-08] MEDS ORDERED: ALBUTEROL NEBULIZED 2.5 MG/3 ML INHALATION PRN (13:36)
[2019-03-08] MEDS ORDERED: SYMBICORT 160-4.5 MCG INHALER INHALATION PRN (13:36)
[2019-03-08] MEDS: FLECAINIDE 50 MG TAB PO SCH ×2 (17:07→23:05)
[2019-03-08] MEDS: SODIUM CHLORIDE 0.9% 1,000 ML IV SCH (18:12)
[2019-03-08] MEDS ORDERED: DEXTROSE 5% IN WATER 100 ML with AMIODARONE 150 MG IV ONE (18:43)
[2019-03-08] MEDS ORDERED: AMIODARONE 360 MG in DEXTROSE 5% IN WATER 200 ML IV ONE ×2 (18:43)
[2019-03-08] MEDS: APIXABAN 5 MG TAB PO SCH (20:54)
[2019-03-08] MEDS: CEFDINIR 300 MG CAP PO SCH (20:54)
[2019-03-09] MEDS ORDERED: AMIODARONE 300 MG in DEXTROSE 5% IN WATER 250 ML IV SCH ×2 (00:43)
[2019-03-09 08:39] LABS: HCT 40.5 % (39.0-53.0); HGB 12.7 gm/dL (13.0-17.5); MCH 28.9 pg (25.0-35.0); MCHC 31.3 g/dL (31.0-37.0); Mean Platelet Volume 8.9; Platelet Count 281 k/uL (150-450); RDW 13.7 % (11.5-15.5); WBC 14.8 k/uL (3.8-10.6)
[2019-03-09 08:54] LABS: Calcium 8.1 mg/dL (8.4-10.2)
[2019-03-09] MEDS: SODIUM CHLORIDE 0.9% 1,000 ML IV SCH ×3 (10:30→18:59)
[2019-03-09] MEDS ORDERED: IV FLUID CONTINUATION 1,000 ML IV ONE (11:22)
[2019-03-09] MEDS: BENZOCAINE SPRAY 1 CAN TOPICAL ONE ×2 (11:27→12:04)
--- NOTE | 2019-03-09 11:31 | CONS ---
CONSULTATION This is a 73-year-old gentleman who was recently here in the hospital with episode of paroxysmal atrial fibrillation, symptomatic. After initiating him on Eliquis 5 mg b.i.d. and placing him on flecainide 50 mg b.i.d. and Cardizem CD. He was discharged. After he went home, he was still having what initially came into the hospital with, a severe upper respiratory tract infection for which he was tapering steroids, but drank plenty of coffee and was having a lot of coughing bouts and then developed palpitations. He presented to the emergency room in what seems to be atrial flutter with a 2:1 block and was placed on a Cardizem drip without much improvement. Through the night I placed him on amiodarone drip as well. However, he remains in atrial flutter, 2:1 conduction, heart rate nearly 140 beats per minute. At rest, he is asymptomatic, but with activity, he feels lightheaded. PAST MEDICAL HISTORY: 1. Paroxysmal atrial fibrillation. 2. Recent upper respiratory tract infection with severe bronchitis from which he is recovering. 3. History of some mantle cell lymphoma in the past. He also has some osteoarthritis, has had previous right total knee arthroplasty and hernia repair performed. ALLERGIES: He is allergic to TESSALON PERLES and PENICILLIN. MEDICATIONS: Include Eliquis 5 mg b.i.d., Ceftin 250 mg b.i.d. continuing the course, diltiazem CD 180 mg daily, flecainide 50 mg b.i.d. PHYSICAL EXAMINATION: Blood pressure is 110/70, pulse rate is about 140. HEENT: Unremarkable. Fundus was not examined by me. Neck is supple. JVD 1 cm. No carotid bruit. Heart exam reveals S1, S2. Tachycardia. Lungs revealed diminished air entry. Scattered rhonchi. Abdomen is soft. Lower extremities reveal diminished pulses. Central nervous system is normal. IMPRESSION: 1. Paroxysmal symptomatic atrial flutter. 2. Recovering from an upper respiratory infection, on tapering steroids and antibiotics. Chest x-ray does not reveal any evidence of pneumonia. RECOMMENDATION: I am recommending that we proceed with a transesophageal echo and electrical cardioversion. Discussed my thoughts with the patient and and also spoke to Dr. Panda. Patient will have the procedure done today. MMODL / IJN: [id number] /
[2019-03-09] MEDS ORDERED: LIDOCAINE 1% INJ 10MG/ML (20 ML MDV) ONE (12:04)
[2019-03-09] MEDS ORDERED: PROPOFOL 10 MG/ML 20 ML VIAL IV ONE (12:04)
--- NOTE | 2019-03-09 12:38 | CE ---
CARDIAC ELECTROPHYSIOLOGY REPORT CARDIOVERSION PROCEDURE NOTE: INDICATION: Atrial fibrillation. PROCEDURE: After explaining the procedure to the patient, its risks and the complications, after obtaining sedated state per Anesthesia Department, a synchronized biphasic cardioversion using 200 joules was performed with inability to restore sinus mechanism. Subsequently, 250 joules was performed with hindu of normal sinus rhythm. There was no immediate complication. ALPHONSO / AJITN: [id number] /
[2019-03-09] MEDS: MAGNESIUM OXIDE 400 MG TAB PO SCH (13:53)
[2019-03-09] MEDS: APIXABAN 5 MG TAB PO SCH ×2 (13:54→22:01)
[2019-03-09] MEDS: CEFDINIR 300 MG CAP PO SCH ×2 (13:54→22:00)
[2019-03-09] MEDS: DILTIAZEM CD 180 MG CAP.ER.24H PO SCH (13:54)
[2019-03-09] MEDS: predniSONE 10 MG TAB PO SCH (13:54)
[2019-03-09] MEDS: MELOXICAM 7.5 MG TAB PO SCH (13:54)
[2019-03-09] MEDS: FLECAINIDE 50 MG TAB PO SCH ×2 (13:54→22:00)
--- NOTE | 2019-03-09 14:56 | P.HPIM ---
History of Present Illness H&P Date: 03/08/19 Chief Complaint: Palpitations, fast heartbeat lightheadedness This patient is 73-year-old male patient of Dr. Meza and Dr. 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 The patient gives history that he has had difficulty tolerating the Lopressor in the past. He was recently admitted to [facility], with atrial fibrillation RVR, 03/03/2019 to 03/05/2019, heart rate at that time was 170s, he was started on flecainide on discharge, eliquis , prednisone taper, for which he is compliant to medications. She also received an antibiotic Ceftin for UTI, which he has no troubles with. Last admission included echocardiogram, atrial fibrillation at the time EF 50-55%, mild aortic valve sclerosis, mild MR, TR, right ventricle systolic pressure 35, trivial peripheral effusion He was doing fine until this morning when he woke up at 3:00, patient had no symptoms at the time, he started drinking 4-5 cups of coffee, took his medications at around 9 AM, thereafter around 10:30, he had some palpitations, heartbeat was so fast, heart rate was in the 170s, he was lightheaded and dizzy, blood pressure was around 120s at home, was subsequently seen in emergency room. Patient was brought into [facility] emergency center. Initial EKG was sinus tachycardia, heart rate in the 130s pulse ox 98% on room air, 126/81 blood pressure, troponins are normal, creatinine of 0.92, WBC count of 12.5, INR 0.9 magnesium level II.2, liver function test is normal except for slight elevation of ALT 54. Consult were made with cardiology during this observation, TSH was just done 1.3, free T4 1 0.5 this was 03/03/2019. Review of Systems Constitutional: Reports as per HPI, Denies anorexia, Denies chills, Denies chronic headaches, Denies chronic pain, Denies daytime sleepiness, Denies fatigue, Denies fever, Denies lethargy, Denies malaise, Denies night sweats, Denies poor appetite, Denies sweats, Denies weakness, Denies weight gain, Denies weight loss Ears, nose, mouth and throat: Reports as per HPI, Denies ant. neck pain, Denies bleeding gums, Denies dental pain, Denies dysphagia, Denies epistaxis, Denies headache, Denies hoarseness, Denies mouth pain, Denies nasal congestion, Denies nasal discharge, Denies neck fullness/pressure, Denies neck lump, Denies nose pa in, Denies odynophagia, Denies post-nasal drip, Denies sinus pain, Denies sinus pressure, Denies swelling in mouth, Denies swelling in throat, Denies sore throat, Denies vertigo, Denies voice changes Cardiovascular: Reports as per HPI, Reports lightheadedness, Reports rapid heart beat, Denies chest pain, Denies claudication, Denies decreased exercise tolerance, Denies dyspnea on exertion, Denies edema, Denies high blood pressure, Denies irregular heart beat, Denies leg edema, Denies orthopnea, Denies palpitations, Denies paroxysmal nocturnal dyspnea, Denies phlebitis, Denies shortness of breath, Denies syncope Respiratory: Reports as per HPI, Denies congestion, Denies cough, Denies cough with sputum, Denies dyspnea, Denies excessive sputum, Denies hemoptysis, Denies home oxygen, Denies pain, Denies pain on inspiration, Denies pleurisy, Denies respiratory infections, Denies sleep apnea, Denies snoring, Denies wheezing Gastrointestinal: Reports as per HPI, Denies abdominal pain, Denies belching, Denies bloating, Denies BRBPR, Denies change in bowel habits, Denies coffee ground emesis, Denies constipation, Denies diarrhea, Denies dyspepsia, Denies early satiety, Denies excessive gas, Denies heartburn, Denies hematemesis, Denies hematochezia, Denies indigestion, Denies jaundice, Denies lactose intolerance, Denies loss of appetite, Denies melena, Denies nausea, Denies vomiting Genitourinary: Reports as per HPI Past Medical History Past Medical History: Atrial Fibrillation, Cancer, COPD, Osteoarthritis (OA) Additional Past Medical History / Comment(s): mantle lymphoma, basal cell carcinoma History of Any Multi-Drug Resistant Organisms: None Reported Past Surgical History: Hernia Repair Additional Past Surgical History / Comment(s): removal of skin cancer Past Anesthesia/Blood Transfusion Reactions: No Reported Reaction Past Psychological History: No Psychological Hx Reported Smoking Status: Never smoker Past Alcohol Use History: Occasional Past Drug Use History: None Reported - Past Family History Brother(s) Family Medical History: Cancer Additional Family Medical History / Comment(s): Patient has 2 brothers and both have passed one from multiple myeloma and one from multiple problems from obesity. Father Family Medical History: No Reported History Additional Family Medical History / Comment(s): Father was healthy and lived to be 95 yrs old. Mother Family Medical History: Vascular Disorder Additional Family Medical History / Comment(s): Mother at the age of 74 yrs from a ruptured aortic aneurysm. Son(s) Additional Family Medical History / Comment(s): Patient has 2 sons with no major medical problems. Patient doesn't have any sisters. Medications and Allergies Home Medications Medication Instructions Recorded Confirmed Type ALPRAZolam [Xanax] 0.25 mg PO TID PRN 01/12/14 03/08/19 History Meloxicam 7.5 mg PO DAILY 01/12/14 03/08/19 History Albuterol Inhaler [Ventolin Hfa 1 - 2 puff INHALATION RT-QID PRN 06/24/17 03/08/19 History Inhaler] Budesonide/Formoterol Fumarate 2 puff INHALATION RT-BID PRN 06/24/17 03/08/19 History [Symbicort 160-4.5 Mcg Inhaler] Glucosam/Amador-Msm1/C/Julio/Bosw 1 tab PO DAILY 06/24/17 03/08/19 History [Glucosamine-Chondroitin Tablet] Acetaminophen Tab [Tylenol] 1,000 mg PO Q6HR PRN 03/03/19 03/08/19 History Albuterol Nebulized [Ventolin 2.5 mg INHALATION RT-Q6H 03/03/19 03/08/19 History Nebulized] Ascorbic Acid [Vitamin C] 1,000 mg PO DAILY 03/03/19 03/08/19 History Cholecalciferol [Vitamin D3 (25 1,000 unit PO DAILY 03/03/19 03/08/19 History Mcg = 1000 Iu)] Codeine Phosphate/Guaifenesin 10 ml PO Q4H PRN 03/03/19 03/08/19 History [Guaiatussin AC Liquid] Fish Oil/Dha/Epa [Fish Oil 1,200 1 cap PO DAILY 03/03/19 03/08/19 History mg Fish Oil] Gentle Iron 28 1 cap PO DAILY 03/03/19 03/08/19 History Magnesium Gluconate 100mg 100 mg PO DAILY 03/03/19 03/08/19 History Mucinex D 600-60 1 tab PO BID 03/03/19 03/08/19 History Turmeric Root Extract [Turmeric] 500 mg PO DAILY 03/03/19 03/08/19 History Tylenol Sinus And Headache 2 cap PO Q4H PRN 03/03/19 03/08/19 History Apixaban [Eliquis] 5 mg PO BID #60 tab 03/05/19 03/08/19 Rx Cefuroxime [Ceftin] 250 mg PO BID #14 tablet 03/05/19 03/08/19 Rx Diltiazem Cd [Cardizem CD] 180 mg PO DAILY #30 cap.er.24h 03/05/19 03/08/19 Rx Flecainide [Tambocor] 50 mg PO Q12H #60 tab 03/05/19 03/08/19 Rx Nystatin 100,000 Unit/ml Susp 5 ml PO QID #140 ml 03/05/19 03/08/19 Rx [Mycostatin Oral Susp] predniSONE See Taper PO DIRECTED 03/08/19 03/08/19 History Allergies Allergy/AdvReac Type Severity Reaction Status Date / Time Penicillins Allergy Severe Rash/Hives Verified 03/08/19 11:55 benzonatate AdvReac Dyspnea Verified 03/08/19 11:55 [From Harper Yanez] Physical Exam Vitals: Vital Signs Temp Pulse Pulse Resp BP Pulse Ox 03/08/19 13:00 132 H 18 116/67 98 03/08/19 11:52 128 H 18 116/87 98 03/08/19 11:10 128 H 20 126/81 98 03/08/19 10:10 125 H 03/08/19 10:07 98.1 F 127 H 18 142/94 97 Intake and Output 03/07/19 03/08/19 03/08/19 22:59 06:59 14:59 Other: Weight 99.79 kg - Constitutional General appearance: cooperative, no acute distress - EENT Eyes: anicteric sclerae, PERRLA, dentition normal, normal appearance ENT: NA/AT, normal oropharynx - Neck Neck: normal ROM - Respiratory Respiratory: bilateral: CTA, negative: diminished, dullness, rales, rhonchi, wheezing - Cardiovascular Heart rate: 137 Rhythm: regular Heart sounds: normal: S1, S2 Abnormal Heart Sounds: no systolic murmur, no diastolic murmur, no rub, no S3 Gallop, no S4 Gallop, no click, no other - Gastrointestinal General gastrointestinal: normal bowel sounds, soft - Integumentary Integumentary: decreased turgor, normal - Musculoskeletal Musculoskeletal: gait normal - Psychiatric Psychiatric: A&O x's 3, appropriate affect, intact judgment & insight Results CBC & Chem 7: 03/08/19 10:39 03/08/19 10:39 Labs: Abnormal Lab Results - Last 24 Hours (Table) 03/08/19 03/08/19 03/08/19 Range/Units 10:39 10:39 10:39 WBC 12.5 H (3.8-10.6) k/uL Neutrophils # 9.4 H (1.3-7.7) k/uL APTT 21.8 L (22.0-30.0) sec BUN 24 H (9-20) mg/dL ALT 54 H (4-49) U/L Laboratory Results WBC 12.5 k/uL (3.8-10.6) H 03/08/19 10:39 RBC 4.71 m/uL (4.30-5.90) 03/08/19 10:39 Hgb 13.4 gm/dL (13.0-17.5) 03/08/19 10:39 Hct 42.9 % (39.0-53.0) 03/08/19 10:39 MCV 91.1 fL (80.0-100.0) 03/08/19 10:39 MCH 28.5 pg (25.0-35.0) 03/08/19 10:39 MCHC 31.3 g/dL (31.0-37.0) 03/08/19 10:39 RDW 13.5 % (11.5-15.5) 03/08/19 10:39 Plt Count 308 k/uL (150-450) 03/08/19 10:39 Neutrophils % 76 % 03/08/19 10:39 Lymphocytes % 15 % 03/08/19 10:39 Monocytes % 5 % 03/08/19 10:39 Eosinophils % 2 % 03/08/19 10:39 Basophils % 1 % 03/08/19 10:39 Neutrophils # 9.4 k/uL (1.3-7.7) H 03/08/19 10:39 Lymphocytes # 1.9 k/uL (1.0-4.8) 03/08/19 10:39 Monocytes # 0.6 k/uL (0-1.0) 03/08/19 10:39 Eosinophils # 0.2 k/uL (0-0.7) 03/08/19 10:39 Basophils # 0.1 k/uL (0-0.2) 03/08/19 10:39 PT 9.6 sec (9.0-12.0) 03/08/19 10:39 INR 0.9 (<1.2) 03/08/19 10:39 APTT 21.8 sec (22.0-30.0) L 03/08/19 10:39 Sodium 140 mmol/L (137-145) 03/08/19 10:39 Potassium 4.6 mmol/L (3.5-5.1) 03/08/19 10:39 Chloride 105 mmol/L (98-107) 03/08/19 10:39 Carbon Dioxide 29 mmol/L (22-30) 03/08/19 10:39 Anion Gap 6 mmol/L 03/08/19 10:39 BUN 24 mg/dL (9-20) H 03/08/19 10:39 Creatinine 0.92 mg/dL (0.66-1.25) 03/08/19 10:39 Est GFR (CKD-EPI)AfAm >90 (>60 ml/min/1.73 sqM) 03/08/19 10:39 Est GFR (CKD-EPI)NonAf 84 (>60 ml/min/1.73 sqM) 03/08/19 10:39 Glucose 92 mg/dL (74-99) 03/08/19 10:39 Calcium 8.9 mg/dL (8.4-10.2) 03/08/19 10:39 Magnesium 2.2 mg/dL (1.6-2.3) 03/08/19 10:39 Total Bilirubin 0.6 mg/dL (0.2-1.3) 03/08/19 10:39 AST 42 U/L (17-59) 03/08/19 10:39 ALT 54 U/L (4-49) H 03/08/19 10:39 Alkaline Phosphatase 116 U/L (38-126) 03/08/19 10:39 Troponin I <0.012 ng/mL (0.000-0.034) 03/08/19 10:39 Total Protein 6.4 g/dL (6.3-8.2) 03/08/19 10:39 Albumin 3.5 g/dL (3.5-5.0) 03/08/19 10:39 Assessment and Plan Plan: 1. Sinus tach, with paroxysmal A. fib with RVR, symptomatic with transient lightheadedness, no chest pain Patient currently a sinus rhythm , patient's on flecainide, and liquids, and diltiazem CD prior to admission. Patient also was counseled on caffeine cessation, or minimize amount of caffeine, patient currently is on IV Cardizem drip, continued ElIQUIS consult with cardiology.. TSH is normal, vision is okay, troponins are performed for serial biomarkers, patient had a stress test which was reportedly normal, unsure about the dates, no heart cath 2. reactive bronchospasm resolution of wheezing with possible underlying chronic asthmatic bronchitis., Finishing prednisone and Ceftin from outpatient home scripts 3. Mantle cell lymphoma status post bone marrow transplantation, stable. 4. History of basal cell carcinoma. 5. Caffeine use, denies any alcohol exposure,/ dependency 5. DVT prophylaxis. Lovenox. 6. GI prophylaxis. Protonix. Patient will be admitted to the hospital for a minimum of 2 night stay
--- NOTE | 2019-03-09 15:39 | P.PN ---
Subjective Progress Note Date: 03/09/19 This patient is 73-year-old male patient of Dr. Meza and Dr. 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 The patient gives history that he has had difficulty tolerating the Lopressor in the past. He was recently admitted to [facility], with atrial fibrillation RVR, 03/03/2019 to 03/05/2019, heart rate at that time was 170s, he was started on flecainide on discharge, eliquis , prednisone taper, for which he is compliant to medications. She also received an antibiotic Ceftin for UTI, which he has no troubles with. Last admission included echocardiogram, atrial fibrill ation at the time EF 50-55%, mild aortic valve sclerosis, mild MR, TR, right ventricle systolic pressure 35, trivial peripheral effusion He was doing fine until this morning when he woke up at 3:00, patient had no symptoms at the time, he started drinking 4-5 cups of coffee, took his medications at around 9 AM, thereafter around 10:30, he had some palpitations, heartbeat was so fast, heart rate was in the 170s, he was lightheaded and dizzy, blood pressure was around 120s at home, was subsequently seen in emergency room. Patient was brought into [facility] emergency center. Initial EKG was sinus tachycardia, heart rate in the 130s pulse ox 98% on room air, 126/81 blood pressure, troponins are normal, creatinine of 0.92, WBC count of 12.5, INR 0.9 magnesium level II.2, liver function test is normal except for slight elevation of ALT 54. Consult were made with cardiology during this observation, TSH was just done 1.3, free T4 1 0.5 this was 03/03/2019. 03/09: Patient underwent electrocardioversion with Dr. Panda to normal sinus rhythm. Flecainide has been increased to 20 mg every 12 hours, Cardizem maintained at 180 mg daily, patient is continued on eliquis. Patient is requesting a pulmonary medicine be consult which has been added. Patient is afebrile, heart rate 72, blood pressure 97/74, pulse ox 96% on 3 L nasal cannula. Repeat lab work reveals white count of 14.8, hemoglobin 12.7, BUN 22 and creatinine 1.06, CO2 31. Repeat lab work is been ordered for the morning. Plan is to monitor overnight and discharged home tomorrow. Review of Systems Constitutional: Denies anorexia, Denies chills, Denies chronic headaches, Denies chronic pain, Denies daytime sleepiness, Denies fatigue, Denies fever, Denies lethargy, Denies malaise, Denies night sweats, Denies poor appetite, Denies sweats, Denies weakness, Denies weight gain, Denies weight loss Ears, nose, mouth and throat: Denies ant. neck pain, Denies bleeding gums, Denies dental pain, Denies dysphagia, Denies epistaxis, Denies headache, Denies hoarseness, Denies mouth pain, Denies nasal congestion, Denies nasal discharge, Denies neck fullness/pressure, Denies neck lump, Denies nose pain, Denies odynophagia, Denies post-nasal drip, Denies sinus pain, Denies sinus pressure, Denies swelling in mouth, Denies swelling in throat, Denies sore throat, Denies vertigo, Denies voice changes Cardiovascular: Reports lightheadedness, Reports rapid heart beat, Denies chest pain, Denies claudication, Denies decreased exercise tolerance, Denies dyspnea on exertion, Denies edema, Denies high blood pressure, Denies irregular heart beat, Denies leg edema, Denies orthopnea, Denies palpitations, Denies paroxysmal nocturnal dyspnea, Denies phlebitis, Denies shortness of breath, Denies syncope Respiratory: Reports as per HPI, Denies congestion, Denies cough, Denies cough with sputum, Denies dyspnea, Denies excessive sputum, Denies hemoptysis, Denies home oxygen, Denies pain, Denies pain on inspiration, Denies pleurisy, Denies respiratory infections, Denies sleep apnea, Denies snoring, Denies wheezing Gastrointestinal:, Denies abdominal pain, Denies belching, Denies bloating, Denies BRBPR, Denies change in bowel habits, Denies coffee ground emesis, Denies constipation, Denies diarrhea, Denies dyspepsia, Denies early satiety, Denies excessive gas, Denies heartburn, Denies hematemesis, Denies hematochezia, Denies indigestion, Denies jaundice, Denies lactose intolerance, Denies loss of appetite, Denies melena, Denies nausea, Denies vomiting Genitourinary: No urinary retention, no dysuria Objective - Vital Signs Vital signs: Vital Signs Temp 98.1 F 03/09/19 11:10 Pulse 72 03/09/19 12:48 Resp 16 03/09/19 12:48 BP 97/74 03/09/19 12:48 Pulse Ox 96 03/09/19 12:48 Intake & Output 03/08/19 03/09/19 03/09/19 18:59 06:59 18:59 Intake Total 36.667 120 100 Output Total 1550 450 Balance 36.667 -1430 -350 Weight 99.79 kg 103.6 kg 103.6 kg Intake: IV 100 Intake, IV Titration 36.667 Amount Diltiazem 125 mg In 36.667 Sodium Chloride 0.9% 100 ml @ 10 MG/HR 10 mls/hr IV .[id number] [facility] Rx#: [id number] Oral 120 Output: Urine 1550 450 Other: Voiding Method Toilet Toilet Urinal Urinal # Voids 0 1 # Bowel Movements 0 - Exam - Constitutional General appearance: cooperative, no acute distress - EENT Eyes: anicteric sclerae, PERRLA, dentition normal, normal appearance ENT: NA/AT, normal oropharynx - Neck Neck: normal ROM - Respiratory Respiratory: bilateral: CTA, negative: diminished, dullness, rales, rhonchi, wheezing - Cardiovascular Heart rate: 137 Rhythm: regular Heart sounds: normal: S1, S2 Abnormal Heart Sounds: no systolic murmur, no diastolic murmur, no rub, no S3 Gallop, no S4 Gallop, no click, no other - Gastrointestinal General gastrointestinal: normal bowel sounds, soft - Integumentary Integumentary: decreased turgor, normal - Musculoskeletal Musculoskeletal: gait normal - Psychiatric Psychiatric: A&O x's 3, appropriate affect, intact judgment & insight - Labs CBC & Chem 7: 03/09/19 08:21 03/09/19 08:21 Labs: Abnormal Lab Results - Last 24 Hours (Table) 03/09/19 03/09/19 Range/Units 08:21 08:21 WBC 14.8 H (3.8-10.6) k/uL Hgb 12.7 L (13.0-17.5) gm/dL Carbon Dioxide 31 H (22-30) mmol/L BUN 22 H (9-20) mg/dL Calcium 8.1 L (8.4-10.2) mg/dL Assessment and Plan Plan: 1. Sinus tach, with paroxysmal A. fib with RVR, symptomatic with transient lightheadedness, no chest pain Patient currently a sinus rhythm , patient's on flecainide, and liquids, and diltiazem CD prior to admission. Patient also was counseled on caffeine cessation, or minimize amount of caffeine, patient currently is on IV Cardizem drip, continued ElIQUIS consult with cardiology. TSH is normal, vision is okay, troponins are performed for serial biomarkers, patient had a stress test which was reportedly normal, unsure about the dates, no heart cath. Status post cardioversion. Continue flecainide 100 mg every 12 hours, 2. reactive bronchospasm resolution of wheezing with possible underlying chronic asthmatic bronchitis., Finishing prednisone and Ceftin from outpatient home scripts. Consult with pulmonary medicine 3. Mantle cell lymphoma status post bone marrow transplantation, stable. 4. History of basal cell carcinoma. 5. Caffeine use, denies any alcohol exposure,/ dependency 5. DVT prophylaxis. Eliquis 6. GI prophylaxis. Protonix. Discharge plan: Home on Saturday Impression and plan of care have been directed as dictated by the signing physician. Gianna Silver nurse practitioner acting as scribe for signing physician.
--- NOTE | 2019-03-09 16:57 | P.CNPUL ---
History of Present Illness Consult date: 03/09/19 Chief complaint: Palpitations, tachycardia History of present illness: 73-year-old male patient of Dr. Meza who we recently saw in consultation during his recent hospital admission for acute bronchitis with reactive bronchospasm, and atrial fibrillation with rapid ventricular response. Patient was treated with comminution of antibiotics, steroids, breathing treatments improved, he had converted back to sinus rhythm before discharge, he was started on combination of Eliquis, Cardizem and flecainide by cardiology and discharged home on 03/05/2019. On 03/08/2019 patient presented to the emergency department with complaints of palpitations and elevated heart rate. He also landed of associated lightheadedness. Patient denied any chest pain, denied any dyspnea, not any fever, he has been compliant with his medications. S x-ray showed no active pulmonary disease. Labs showed a white blood cell count of 12.5, hemoglobin of 13.4, electrolytes and renal profile were unremarkable, troponin was less than 0.012. EKG on admission showed sinus tachycardia with a rate of 127. Patient was evaluated by cardiology, and he underwent synchronized cardioversion procedure and the biphasic shock using 200 J twice with the presybeterian of normal sinus rhythm. Patient is is completing his course of oral prednisone taper is currently on 30 mg daily, and oral Omnicef. Review of Systems All systems: negative Constitutional: Denies chills, Denies fever Eyes: denies blurred vision, denies pain Ears, nose, mouth and throat: Denies headache, Denies sore throat Cardiovascular: Reports palpitations, Denies chest pain, Denies shortness of breath Respiratory: Denies cough Gastrointestinal: Denies abdominal pain, Denies diarrhea, Denies nausea, Denies vomiting Musculoskeletal: Denies myalgias Integumentary: Denies pruritus, Denies rash Neurological: Denies numbness, Denies weakness Psychiatric: Denies anxiety, Denies depression Endocrine: Denies fatigue, Denies weight change Past Medical History Past Medical History: Atrial Fibrillation, Cancer, COPD, Osteoarthritis (OA) Additional Past Medical History / Comment(s): mantle lymphoma, basal cell carcinoma History of Any Multi-Drug Resistant Organisms: None Reported Past Surgical History: Hernia Repair Additional Past Surgical History / Comment(s): removal of skin cancer Past Anesthesia/Blood Transfusion Reactions: No Reported Reaction Past Psychological History: No Psychological Hx Reported Smoking Status: Never smoker Past Alcohol Use History: Occasional Past Drug Use History: None Reported - Past Family History Brother(s) Family Medical History: Cancer Additional Family Medical History / Comment(s): Patient has 2 brothers and both have passed one from multiple myeloma and one from multiple problems from obesity. Father Family Medical History: No Reported History Additional Family Medical History / Comment(s): Father was healthy and lived to be 95 yrs old. Mother Family Medical History: Vascular Disorder Additional Family Medical History / Comment(s): Mother at the age of 74 yrs from a ruptured aortic aneurysm. Son(s) Additional Family Medical History / Comment(s): Patient has 2 sons with no major medical problems. Patient doesn't have any sisters. Medications and Allergies Home Medications Medication Instructions Recorded Confirmed Type ALPRAZolam [Xanax] 0.25 mg PO TID PRN 01/12/14 03/08/19 History Meloxicam 7.5 mg PO DAILY 01/12/14 03/08/19 History Albuterol Inhaler [Ventolin Hfa 1 - 2 puff INHALATION RT-QID PRN 06/24/17 03/08/19 History Inhaler] Budesonide/Formoterol Fumarate 2 puff INHALATION RT-BID PRN 06/24/17 03/08/19 History [Symbicort 160-4.5 Mcg Inhaler] Glucosam/Amador-Msm1/C/Julio/Bosw 1 tab PO DAILY 06/24/17 03/08/19 History [Glucosamine-Chondroitin Tablet] Acetaminophen Tab [Tylenol] 1,000 mg PO Q6HR PRN 03/03/19 03/08/19 History Albuterol Nebulized [Ventolin 2.5 mg INHALATION RT-Q6H 03/03/19 03/08/19 History Nebulized] Ascorbic Acid [Vitamin C] 1,000 mg PO DAILY 03/03/19 03/08/19 History Cholecalciferol [Vitamin D3 (25 1,000 unit PO DAILY 03/03/19 03/08/19 History Mcg = 1000 Iu)] Codeine Phosphate/Guaifenesin 10 ml PO Q4H PRN 03/03/19 03/08/19 History [Guaiatussin AC Liquid] Fish Oil/Dha/Epa [Fish Oil 1,200 1 cap PO DAILY 03/03/19 03/08/19 History mg Fish Oil] Gentle Iron 28 1 cap PO DAILY 03/03/19 03/08/19 History Magnesium Gluconate 100mg 100 mg PO DAILY 03/03/19 03/08/19 History Mucinex D 600-60 1 tab PO BID 03/03/19 03/08/19 History Turmeric Root Extract [Turmeric] 500 mg PO DAILY 03/03/19 03/08/19 History Tylenol Sinus And Headache 2 cap PO Q4H PRN 03/03/19 03/08/19 History Apixaban [Eliquis] 5 mg PO BID #60 tab 03/05/19 03/08/19 Rx Cefuroxime [Ceftin] 250 mg PO BID #14 tablet 03/05/19 03/08/19 Rx Diltiazem Cd [Cardizem CD] 180 mg PO DAILY #30 cap.er.24h 03/05/19 03/08/19 Rx Flecainide [Tambocor] 50 mg PO Q12H #60 tab 03/05/19 03/08/19 Rx Nystatin 100,000 Unit/ml Susp 5 ml PO QID #140 ml 03/05/19 03/08/19 Rx [Mycostatin Oral Susp] predniSONE See Taper PO DIRECTED 03/08/19 03/08/19 History Allergies Allergy/AdvReac Type Severity Reaction Status Date / Time Penicillins Allergy Severe Rash/Hives Verified 03/08/19 11:55 benzonatate AdvReac Dyspnea Verified 03/08/19 11:55 [From Harper Yanez] Physical Exam Vitals: Vital Signs Temp Pulse Pulse Resp BP Pulse Ox 03/09/19 12:48 72 16 97/74 96 03/09/19 12:30 80 16 104/63 96 03/09/19 12:17 76 12 97/67 96 03/09/19 11:10 98.1 F 141 H 18 115/76 98 03/09/19 08:00 98.1 F 139 H 18 109/77 93 L 03/09/19 06:23 142 H 18 106/77 96 03/09/19 05:30 133 H 18 108/69 95 03/09/19 05:00 142 H 18 142/70 95 03/09/19 04:45 134 H 18 100/56 95 03/09/19 04:30 134 H 18 117/67 95 03/09/19 04:15 137 H 18 100/62 96 03/09/19 04:00 143 H 18 96/53 96 03/09/19 03:30 135 H 18 124/81 95 03/09/19 03:15 132 H 18 124/76 95 03/09/19 03:00 133 H 18 128/81 95 03/09/19 02:45 133 H 18 120/81 94 L 03/09/19 02:40 134 H 18 126/80 95 03/09/19 02:37 130 H 18 121/66 95 03/09/19 02:30 132 H 18 126/82 03/09/19 02:15 135 H 18 124/80 03/09/19 01:45 133 H 18 122/81 95 03/09/19 01:15 134 H 18 126/80 96 03/09/19 00:00 134 H 18 92/61 96 03/08/19 23:45 132 H 18 118/82 95 03/08/19 23:30 132 H 18 109/62 95 03/08/19 23:00 136 H 18 137/84 95 03/08/19 22:45 136 H 18 137/84 95 03/08/19 22:30 139 H 18 127/80 94 L 03/08/19 22:00 136 H 18 128/78 93 L 03/08/19 21:45 139 H 18 118/71 94 L 03/08/19 21:30 140 H 18 116/53 95 03/08/19 21:00 141 H 18 97/64 97 03/08/19 20:30 97.6 F 142 H 18 97/64 97 03/08/19 20:15 97.3 F L 143 H 18 120/84 96 03/08/19 20:13 97.3 F L 141 H 18 120/84 96 03/08/19 20:00 144 H 18 03/08/19 18:28 96 03/08/19 18:22 146 H 03/08/19 18:13 147 H 98/61 03/08/19 18:06 147 H 17 88/50 96 03/08/19 17:00 140 H 18 110/75 95 Intake and Output 03/09/19 03/09/19 03/09/19 06:59 14:59 22:59 Intake Total 100 Output Total 850 450 Balance -850 -350 Intake: IV 100 Output: Urine 850 450 Other: Voiding Method Toilet Toilet Urinal Urinal # Voids 1 Weight 103.6 kg 103.6 kg GENERAL EXAM: Alert, very pleasant, 73-year-old white male, 3 liters of oxygen and the pulse ox 96% comfortable in no apparent distress. HEAD: Normocephalic/atraumatic. EYES: Normal reaction of pupils, equal size. Conjunctiva pink, sclera white. NOSE: Clear with pink turbinates. THROAT: No erythema or exudates. NECK: No masses, no JVD, no thyroid enlargement, no adenopathy. CHEST: No chest wall deformity. Symmetrical expansion. LUNGS: Equal air entry with no crackles, wheeze, rhonchi or dullness. CVS: Regular rate and rhythm, normal S1 and S2, no gallops, no murmurs, no rubs ABDOMEN: Soft, nontender. No hepatosplenomegaly, normal bowel sounds, no guarding or rigidity. EXTREMITIES: No clubbing, no edema, no cyanosis, 2+ pulses and upper and lower extremities. MUSCULOSKELETAL: Muscle strength and tone normal. SPINE: No scoliosis or deformity SKIN: No rashes CENTRAL NERVOUS SYSTEM: Alert and oriented -3. No focal deficits, tone is normal in all 4 extremities. PSYCHIATRIC: Alert and oriented -3. Appropriate affect. Intact judgment and insight. Results - Laboratory Findings CBC and BMP: 03/09/19 08:21 03/09/19 08:21 PT/INR, D-dimer PT 9.6 sec (9.0-12.0) 03/08/19 10:39 INR 0.9 (<1.2) 03/08/19 10:39 Abnormal lab findings: Abnormal Labs 03/08/19 03/08/19 03/08/19 10:39 10:39 10:39 WBC 12.5 H Hgb Neutrophils # 9.4 H APTT 21.8 L Carbon Dioxide BUN 24 H Calcium ALT 54 H 03/09/19 03/09/19 08:21 08:21 WBC 14.8 H Hgb 12.7 L Neutrophils # APTT Carbon Dioxide 31 H BUN 22 H Calcium 8.1 L ALT - Diagnostic Findings Chest x-ray: report reviewed, image reviewed Assessment and Plan Plan: Assessment: #1. Sinus tachycardia, symptomatic with palpitations, and lightheadedness, no chest pain, is post biphasic cardioversion 2 with 200 J with presybeterian of normal sinus rhythm. #2. Paroxysmal atrial fibrillation, patient is on Eliquis, Cardizem and flecainide #3. Recent hospitalization for acute bronchitis with bronchospasm, recovering #4. 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 History of basal cell carcinoma #6. Nonsmoker #7. History of melanoma #8. Remote history of pancreatitis Plan: Continue current medical treatment, no worsening dyspnea, no significant wheezing or congestion, vital signs are stable, patient can finish his p rednisone taper, he is completing his course of oral antibiotics. X-ray showed no acute pulmonary process. From pulmonary perspective patient is stable and could be considered for discharge home in the next 24 hours. She will need outpatient follow-up with Dr. Dunn in 1 week I performed a history & physical examination of the patient and discussed their management with my nurse practitioner, Odilia Linder. I reviewed the nurse practitioner's note and agree with the documented findings and plan of care. Lung sounds are positive for clear breath sounds throughout the lung carrera. The findings and the impression was discussed with the patient. I attest to the documentation by the nurse practitioner. Time with Patient: Greater than 30
[2019-03-09] MEDS: SYMBICORT 160-4.5 MCG INHALER INHALATION SCH (20:07)
[2019-03-10 06:33] LABS: Calcium 8.2 mg/dL (8.4-10.2); Potassium 4.4 mmol/L (3.5-5.1)
[2019-03-10] MEDS: SODIUM CHLORIDE 0.9% 1,000 ML IV SCH ×3 (07:28→10:54)
[2019-03-10] MEDS: SYMBICORT 160-4.5 MCG INHALER INHALATION SCH (07:35)
[2019-03-10 09:03] VITALS: BP 134/76; PULSE 72; RESP 20; TEMP 97.4
[2019-03-10] MEDS: MAGNESIUM OXIDE 400 MG TAB PO SCH (09:33)
[2019-03-10] MEDS: MELOXICAM 7.5 MG TAB PO SCH (09:33)
[2019-03-10] MEDS: predniSONE 10 MG TAB PO SCH (09:33)
[2019-03-10] MEDS: FLECAINIDE 50 MG TAB PO SCH (09:34)
[2019-03-10] MEDS: CEFDINIR 300 MG CAP PO SCH (09:34)
[2019-03-10] MEDS: APIXABAN 5 MG TAB PO SCH (09:34)
[2019-03-10] MEDS: DILTIAZEM CD 180 MG CAP.ER.24H PO SCH (09:34)
--- NOTE | 2019-03-10 11:41 | P.DS ---
Providers Date of admission: 03/08/19 11:43 Expected date of discharge: 03/10/19 Attending physician: Libby Vizcaino Consults: 03/08/19 11:44 Consult Physician Routine Consulting Provider: Velasquez Stern Consult Reason/Comments: History of atrial fibrillation, sinus tach Do you want consulting provider notified?: Yes 03/09/19 13:03 Consult Physician Routine Consulting Provider: Rena Lipscomb Consult Reason/Comments: COPD, sees [facility], pt request Do you want consulting provider notified?: Yes Primary care physician: [facility] Course: This patient is 73-year-old male patient of Dr. Meza and Dr. 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 The patient gives history that he has had difficulty tolerating the Lopressor in the past. He was recently admitted to [facility], with atrial fibrillation RVR, 03/03/2019 to 03/05/2019, heart rate at that time was 170s, he was started on flecainide on discharge, eliquis , prednisone taper, for which he is compliant to medications. She also received an antibiotic Ceftin for UTI, which he has no troubles with. Last admission included echocardiogram, atrial fibrillation at the time EF 50-55%, mild aortic valve sclerosis, mild MR, TR, right ventricle systolic pressure 35, trivial peripheral effusion He was doing fine until this morning when he woke up at 3:00, patient had no symptoms at the time, he started drinking 4-5 cups of coffee, took his medications at around 9 AM, thereafter around 10:30, he had some palpitations, heartbeat was so fast, heart rate was in the 170s, he was lightheaded and dizzy, blood pressure was around 120s at home, was subsequently seen in emergency room. Patient was brought into [facility] emergency center. Initial EKG was sinus tachycardia, heart rate in the 130s pulse ox 98% on room air, 126/81 blood pressure, troponins are normal, creatinine of 0.92, WBC count of 12.5, INR 0.9 magnesium level II.2, liver function test is normal except for slight elevation of ALT 54. Consult were made with cardiology during this observation, TSH was just done 1.3, free T4 1 0.5 this was 03/03/2019. 03/09: Patient underwent electrocardioversion with Dr. Panda to normal sinus rhythm. Flecainide has been increased to 20 mg every 12 hours, Cardizem maintained at 180 mg daily, patient is continued on eliquis. Patient is requesting a pulmonary medicine be consult which has been added. Patient is afebrile, heart rate 72, blood pressure 97/74, pulse ox 96% on 3 L nasal cannula. Repeat lab work reveals white count of 14.8, hemoglobin 12.7, BUN 22 and creatinine 1.06, CO2 31. Repeat lab work is been ordered for the morning. Plan is to monitor overnight and discharged home tomorrow. 03/10: Patient has been seen by Dr. Lipscomb and for acute bronchitis with bronchospasm, recovering. Advised to finish prednisone taper and oral an tibiotics. Follow-up with Dr. Dunn in one week. Patient has been afebrile, heart rate 72, blood pressure 134/76, pulse ox 96% on room air. Repeat lab work reveals CO2 31, creatinine 1.03. 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 Patient has been cleared for discharge by consultants. Patient will be discharged home today in stable condition. Discharge diagnoses: 1. Sinus tach, with paroxysmal A. fib with RVR, symptomatic with transient lightheadedness, no chest pain Patient currently a sinus rhythm 2. Reactive bronchospasm resolution of wheezing with possible underlying chronic asthmatic bronchitis. 3. Mantle cell lymphoma status post bone marrow transplantation, stable. 4. History of basal cell carcinoma. 5. Caffeine use, denies any alcohol exposure,/ dependency Discharge plan: Home Impression and plan of care have been directed as dictated by the signing physician. Gianna Silver nurse practitioner acting as scribe for signing physician. Patient Condition at Discharge: Good Plan - Discharge Summary Discharge Rx Participant: Yes New Discharge Prescriptions: New Flecainide Acetate [Tambocor] 100 mg PO Q12HR #60 tab Continue Meloxicam 7.5 mg PO DAILY ALPRAZolam [Xanax] 0.25 mg PO TID PRN PRN Reason: Anxiety Budesonide/Formoterol Fumarate [Symbicort 160-4.5 Mcg Inhaler] 2 puff INHALATION RT-BID PRN PRN Reason: Dyspnea Albuterol Inhaler [Ventolin Hfa Inhaler] 1 - 2 puff INHALATION RT-QID PRN PRN Reason: Wheezing Glucosam/Amador-Msm1/C/Julio/Bosw [Glucosamine-Chondroitin Tablet] 1 tab PO DAILY Gentle Iron 28 1 cap PO DAILY Magnesium Gluconate 100mg 100 mg PO DAILY Fish Oil/Dha/Epa [Fish Oil 1,200 mg Fish Oil] 1 cap PO DAILY Turmeric Root Extract [Turmeric] 500 mg PO DAILY Cholecalciferol [Vitamin D3 (25 Mcg = 1000 Iu)] 1,000 unit PO DAILY Mucinex D 600-60 1 tab PO BID Ascorbic Acid [Vitamin C] 1,000 mg PO DAILY Acetaminophen Tab [Tylenol] 1,000 mg PO Q6HR PRN PRN Reason: Pain Albuterol Nebulized [Ventolin Nebulized] 2.5 mg INHALATION RT-Q6H Codeine Phosphate/Guaifenesin [Guaiatussin AC Liquid] 10 ml PO Q4H PRN PRN Reason: Cough Tylenol Sinus And Headache 2 cap PO Q4H PRN PRN Reason: Congestion Diltiazem Cd [Cardizem CD] 180 mg PO DAILY #30 cap.er.24h Cefuroxime [Ceftin] 250 mg PO BID #14 tablet Apixaban [Eliquis] 5 mg PO BID #60 tab Nystatin 100,000 Unit/ml Susp [Mycostatin Oral Susp] 5 ml PO QID #140 ml predniSONE See Taper PO DIRECTED Discharge Medication List ALPRAZolam [Xanax] 0.25 mg PO TID PRN 01/12/14 [History] Meloxicam 7.5 mg PO DAILY 01/12/14 [History] Albuterol Inhaler [Ventolin Hfa Inhaler] 1 - 2 puff INHALATION RT-QID PRN 06/24/17 [History] Budesonide/Formoterol Fumarate [Symbicort 160-4.5 Mcg Inhaler] 2 puff INHALATION RT-BID PRN 06/24/17 [History] Glucosam/Amador-Msm1/C/Julio/Bosw [Glucosamine-Chondroitin Tablet] 1 tab PO DAILY 06/24/17 [History] Acetaminophen Tab [Tylenol] 1,000 mg PO Q6HR PRN 03/03/19 [History] Albuterol Nebulized [Ventolin Nebulized] 2.5 mg INHALATION RT-Q6H 03/03/19 [History] Ascorbic Acid [Vitamin C] 1,000 mg PO DAILY 03/03/19 [History] Cholecalciferol [Vitamin D3 (25 Mcg = 1000 Iu)] 1,000 unit PO DAILY 03/03/19 [History] Codeine Phosphate/Guaifenesin [Guaiatussin AC Liquid] 10 ml PO Q4H PRN 03/03/19 [History] Fish Oil/Dha/Epa [Fish Oil 1,200 mg Fish Oil] 1 cap PO DAILY 03/03/19 [History] Gentle Iron 28 1 cap PO DAILY 03/03/19 [History] Magnesium Gluconate 100mg 100 mg PO DAILY 03/03/19 [History] Mucinex D 600-60 1 tab PO BID 03/03/19 [History] Turmeric Root Extract [Turmeric] 500 mg PO DAILY 03/03/19 [History] Tylenol Sinus And Headache 2 cap PO Q4H PRN 03/03/19 [History] Apixaban [Eliquis] 5 mg PO BID #60 tab 03/05/19 [Rx] Cefuroxime [Ceftin] 250 mg PO BID #14 tablet 03/05/19 [Rx] Diltiazem Cd [Cardizem CD] 180 mg PO DAILY #30 cap.er.24h 03/05/19 [Rx] Nystatin 100,000 Unit/ml Susp [Mycostatin Oral Susp] 5 ml PO QID #140 ml 03/05/19 [Rx] predniSONE See Taper PO DIRECTED 03/08/19 [History] Flecainide Acetate [Tambocor] 100 mg PO Q12HR #60 tab 03/10/19 [Rx] Follow up Appointment(s)/Referral(s): Vidhi Panda MD [STAFF PHYSICIAN] - 1 Week Hemanth Meza MD [Primary Care Provider] - 1 Week Olman Dunn MD [STAFF PHYSICIAN] - 1 Week Discharge Disposition: HOME SELF-CARE
--- NOTE | 2019-03-10 12:02 | P.PN ---
Subjective Progress Note Date: 03/10/19 Principal diagnosis: Palpitations, tachycardia 73-year-old male patient of Dr. Meza who we recently saw in consultation during his recent hospital admission for acute bronchitis with reactive bronchospasm, and atrial fibrillation with rapid ventricular response. Patient was treated with comminution of antibiotics, steroids, breathing treatments improved, he had converted back to sinus rhythm before discharge, he was started on combination of Eliquis, Cardizem and flecainide by cardiology and discharged home on 03/05/2019. On 03/08/2019 patient presented to the emergency department with complaints of palpitations and elevated heart rate. He also landed of associated lightheadedness. Patient denied any chest pain, denied any dyspnea, not any fever, he has been compliant with his medications. S x-ray showed no active pulmonary disease. Labs showed a white blood cell count of 12.5, hemoglobin of 13.4, electrolytes and renal profile were unremarkable, troponin was less than 0.012. EKG on admission showed sinus tachycardia with a rate of 127. Patient was evaluated by cardiology, and he underwent synchronized cardioversion procedure and the biphasic shock using 200 J twice with the orthodoxy of normal sinus rhythm. Patient is is completing his course of oral prednisone taper is currently on 30 mg daily, and oral Omnicef. On the March 10 2019 patient seen in follow-up on selective care unit, is in sinus rhythm with a controlled rate, with a rate of 67 BPM, no acute events overnight, patient continues on combination of Eliquis, Cardizem and flecainide, there has been no recurrence of atrial fibrillation or sinus tachycardia, his breathing is improving, lung sounds reveal some coarse crackles at bilateral bases, but no rhonchi or wheezing, patient is completing his course of oral prednisone and Omnicef, doing well, he is on room air, pulse ox is 96%. he is being discharged home today Objective - Vital Signs Vital signs: Vital Signs Temp 97.4 F L 03/10/19 08:00 Pulse 72 03/10/19 08:00 Resp 20 03/10/19 08:00 BP 134/76 03/10/19 08:00 Pulse Ox 96 03/10/19 08:00 Intake & Output 03/09/19 03/10/19 03/10/19 18:59 06:59 18:59 Intake Total 336 360 Output Total 450 900 Balance -114 -900 360 Weight 103.6 kg 101.4 kg Intake: IV 100 Oral 236 360 Output: Urine 450 900 Other: Voiding Method Toilet Toilet Toilet Urinal Urinal Urinal # Voids 1 - Exam GENERAL EXAM: Alert, very pleasant, 73-year-old white male, with room air pulse ox of 96% comfortable in no apparent distress. HEAD: Normocephalic/atraumatic. EYES: Normal reaction of pupils, equal size. Conjunctiva pink, sclera white. NOSE: Clear with pink turbinates. THROAT: No erythema or exudates. NECK: No masses, no JVD, no thyroid enlargement, no adenopathy. CHEST: No chest wall deformity. Symmetrical expansion. LUNGS: Equal air entry with coarse bibasilar crackles, but no wheeze, rhonchi or dullness. CVS: Regular rate and rhythm, normal S1 and S2, no gallops, no murmurs, no rubs ABDOMEN: Soft, nontender. No hepatosplenomegaly, normal bowel sounds, no guarding or rigidity. EXTREMITIES: No clubbing, no edema, no cyanosis, 2+ pulses and upper and lower extremities. MUSCULOSKELETAL: Muscle strength and tone normal. SPINE: No scoliosis or deformity SKIN: No rashes CENTRAL NERVOUS SYSTEM: Alert and oriented -3. No focal deficits, tone is normal in all 4 extremities. PSYCHIATRIC: Alert and oriented -3. Appropriate affect. Intact judgment and insight. - Labs CBC & Chem 7: 03/09/19 08:21 03/10/19 05:52 Labs: Abnormal Lab Results - Last 24 Hours (Table) 03/10/19 Range/Units 05:52 Carbon Dioxide 31 H (22-30) mmol/L Glucose 102 H (74-99) mg/dL Calcium 8.2 L (8.4-10.2) mg/dL Assessment and Plan Plan: Assessment: #1. Sinus tachycardia, symptomatic with palpitations, and lightheadedness, no chest pain, is post biphasic cardioversion 2 with 200 J with orthodoxy of normal sinus rhythm. #2. Paroxysmal atrial fibrillation, patient is on Eliquis, Cardizem and flecainide #3. Recent hospitalization for acute bronchitis with bronchospasm, recovering #4. 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 History of basal cell carcinoma #6. Nonsmoker #7. History of melanoma #8. Remote history of pancreatitis Plan: He is doing well, patient to continue on his outpatient course of prednisone and Omnicef, no acute events overnight, his breathing is improving, patient is maintaining sinus rhythm with controlled rate, he is being discharged home today, he can follow up with Dr. Dunn in the office in one week I performed a history & physical examination of the patient and discussed their management with my nurse practitioner, Odilia Linder. I reviewed the nurse practitioner's note and agree with the documented findings and plan of care. Lung sounds are positive for clear breath sounds throughout the lung carrera. The findings and the impression was discussed with the patient. I attest to the documentation by the nurse practitioner. Time with Patient: Less than 30
--- NOTE | 2019-03-10 12:22 | PN ---
PROGRESS NOTE Mr. Jackson is in sinus rhythm, underwent cardioversion yesterday. He is doing well. No chest pain, shortness of breath or palpitations. He still has some wheezing, but the wheezing has improved. Vitals are stable. No JVD, S1-S2 heard normally. Lungs reveal scattered rhonchi, improved air entry. Abdomen and lower extremity exam unchanged. Plan is to continue current medication, discharge him and he will see Dr. Panda in one week. He will be on Eliquis, Cardizem and 100 mg b.i.d. of flecainide. MMODL / IJN: [id number] /
--- NOTE | 2019-03-11 05:10 | ECHOT ---
TRANSESOPHAGEAL ECHOCARDIOGRAM INDICATION: Evaluation of left atrial appendage. PROCEDURE: After explaining the procedure to the patient, its risks and the complications, his blood pressure, heart rate, O2 saturation was monitored. The throat was sprayed with Cetacaine. He received the sedation per Anesthesia Department. The probe was introduced the esophagus without difficulty. Images were obtained. Following that, the probe was removed. There was no immediate complication. FINDINGS: Left atrial size is mildly dilated. Left atrial appendage is normal. Left ventricular size is normal. There is global hypokinesis, estimated ejection fraction 45%. The aortic valve, mitral and tricuspid valve are normal. Descending thoracic aorta is normal. Contrast bubble study revealed no shunting across the interatrial septum. No pericardial effusion was noted. Doppler pulse wave workup obtained revealed mild aortic and tricuspid regurgitation with mild to moderate mitral regurgitation. There was no shunting by color Doppler study. CONCLUSION: 1. Dilated left atrium with normal appearance to left atrial appendage. 2. Normal left ventricular size with mild to moderate global hypokinesis. 3. Mild to moderate mitral with mild tricuspid and aortic regurgitation. 4. Normal appearance descending thoracic aorta. 5. No pericardial effusion. MMODL / IJN: [id number] /
== END 2019-03-10 12:55 | disposition home or self-care (01) ==
LOC: EC 10:03 → 3SCARD 11:43
PROVIDERS: ADMIT Family Medicine; ATTEND Family Medicine
DX: I48.0 Paroxysmal atrial fibrillation (principal); R00.0 Tachycardia, unspecified; R42 Dizziness and giddiness; Z85.72 Personal history of non-Hodgkin lymphomas; Z94.81 Bone marrow transplant status; Z85.828 Personal history of other malignant neoplasm of skin; I08.3 Combined rheumatic disorders of mitral, aortic and tricuspid valves; J44.9 Chronic obstructive pulmonary disease, unspecified; N39.0 Urinary tract infection, site not specified; M19.90 Unspecified osteoarthritis, unspecified site; I48.92 Unspecified atrial flutter; Z79.899 Other long term (current) drug therapy; Z79.01 Long term (current) use of anticoagulants; Z79.51 Long term (current) use of inhaled steroids; Z88.0 Allergy status to penicillin; Z88.8 Allergy status to other drugs, medicaments and biological substances; Z98.890 Other specified postprocedural states; Z87.09 Personal history of other diseases of the respiratory system; Z85.820 Personal history of malignant melanoma of skin; Z87.19 Personal history of other diseases of the digestive system; Z96.651 Presence of right artificial knee joint; Z79.1 Long term (current) use of non-steroidal anti-inflammatories (NSAID); Z80.8 Family history of malignant neoplasm of other organs or systems; Z83.49 Family history of other endocrine, nutritional and metabolic diseases; Z82.49 Family history of ischemic heart disease and other diseases of the circulatory system
CPT/HCPCS: 96365 ×2; 96366 ×3; 96368 ×2; 93005 ×3; 96376; 99285; 36415; 94760; 93312; 93320; 93325; 92960; 80053; 80048 ×2; 83735 ×2; 84484; 85025; 85027; 85610; 85730; 71046; G0378 ×3; J0282 ×3; J2001; J2704; J7512 ×2

== ENCOUNTER 2019-04-20 11:16 | Observation (INO) | payer MEDICARE ==
[2019-04-20] MEDS ORDERED: SODIUM CHLORIDE 0.9% 500 ML 500 ML IV STA (11:43)
--- NOTE | 2019-04-20 11:51 | ED ---
General Adult HPI - General Chief complaint: Weakness Stated complaint: chest pain, fatigue Time Seen by Provider: 04/20/19 11:20 Source: patient, family, RN notes reviewed, old records reviewed Mode of arrival: wheelchair Limitations: no limitations - History of Present Illness Initial comments: This is a 73-year-old male who presents emergency Department with a past medical history significant for lymphoma and atrial fibrillation. Patient bone marrow transpired about 6 years ago and states she's been doing fine since. Patient states over the last few weeks he has been waking up with severe night sweats. Patient also had an episode of right upper chest yesterday. Patient states she's also been extremely fatigued especially with any kind of exertion. Patient states she's also been short of breath with any exertion. Patient also complains of a couple weeks of throat pain particular swallowing or coughing. Patient states it started after he had been on multiple breathing treatments. Patient states he has not noted any fever. He denies any cough. He states he only pain he has experienced this is throat going down into the upper chest there is no pain in the anterior chest. Patient states he upper chest pain is always associated with throat pain. Patient denies any black or bloody stools. Patient denies a headache. - Related Data Home Medications Medication Instructions Recorded Confirmed ALPRAZolam [Xanax] 0.25 mg PO TID PRN 01/12/14 04/20/19 Meloxicam 7.5 mg PO DAILY 01/12/14 04/20/19 Albuterol Inhaler [Ventolin Hfa 1 - 2 puff INHALATION RT-QID PRN 06/24/17 04/20/19 Inhaler] Budesonide/Formoterol Fumarate 2 puff INHALATION RT-BID PRN 06/24/17 04/20/19 [Symbicort 160-4.5 Mcg Inhaler] Glucosam/Amador-Msm1/C/Julio/Bosw 1 tab PO DAILY 06/24/17 04/20/19 [Glucosamine-Chondroitin Tablet] Albuterol Nebulized [Ventolin 2.5 mg INHALATION RT-Q6H 03/03/19 04/20/19 Nebulized] Cholecalciferol [Vitamin D3 (25 1,000 unit PO DAILY 03/03/19 04/20/19 Mcg = 1000 Iu)] Gentle Iron 28 1 cap PO DAILY 03/03/19 04/20/19 Magnesium Gluconate 100mg 100 mg PO DAILY 03/03/19 04/20/19 Turmeric Root Extract [Turmeric] 500 mg PO DAILY 03/03/19 04/20/19 Acetaminophen/Diphenhydramine 1 tab PO HS PRN 04/20/19 04/20/19 [Tylenol PM 500-25mg] Multivitamins, Thera [Multivitamin 1 tab PO DAILY 04/20/19 04/20/19 (formulary)] Previous Rx's Medication Instructions Recorded Apixaban [Eliquis] 5 mg PO BID #60 tab 03/05/19 Diltiazem Cd [Cardizem CD] 180 mg PO DAILY #30 cap.er.24h 03/05/19 Flecainide Acetate [Tambocor] 100 mg PO Q12HR #60 tab 03/10/19 Allergies Allergy/AdvReac Type Severity Reaction Status Date / Time Penicillins Allergy Severe Rash/Hives Verified 04/20/19 11:18 benzonatate AdvReac Dyspnea Verified 04/20/19 11:18 [From Harper Yanez] Review of Systems ROS Statement: Those systems with pertinent positive or pertinent negative responses have been documented in the HPI. ROS Other: All systems not noted in ROS Statement are negative. Past Medical History Past Medical History: Atrial Fibrillation Additional Past Medical History / Comment(s): mantle lymphoma, basal cell carcinoma (in remission) History of Any Multi-Drug Resistant Organisms: None Reported Past Surgical History: Hernia Repair Additional Past Surgical History / Comment(s): removal of skin cancer Past Anesthesia/Blood Transfusion Reactions: No Reported Reaction Past Psychological History: No Psychological Hx Reported Smoking Status: Never smoker Past Alcohol Use History: Occasional Past Drug Use History: None Reported - Past Family History Brother(s) Family Medical History: Cancer Additional Family Medical History / Comment(s): Patient has 2 brothers and both have passed one from multiple myeloma and one from multiple problems from obesity. Father Family Medical History: No Reported History Additional Family Medical History / Comment(s): Father was healthy and lived to be 95 yrs old. Mother Family Medical History: Vascular Disorder Additional Family Medical History / Comment(s): Mother at the age of 74 yrs from a ruptured aortic aneurysm. Son(s) Additional Family Medical History / Comment(s): Patient has 2 sons with no major medical problems. Patient doesn't have any sisters. General Exam - General Exam Comments Initial Comments: GENERAL: Patient is well-developed and well-nourished. Patient is nontoxic and well- hydrated and is in mild distress. ENT: Neck is soft and supple. No significant lymphadenopathy is noted. Oropharynx is clear. Moist mucous membranes. Neck has full range of motion without eliciting any pain. EYES: The sclera were anicteric and conjunctiva were pink and moist. Extraocular movements were intact and pupils were equal round and reactive to light. Eyelids were unremarkable. PULMONARY: Unlabored respirations. Good breath sounds bilaterally. No audible rales rhonchi or wheezing was noted. CARDIOVASCULAR: There is a regular rate and rhythm without any murmurs gallops or rubs. ABDOMEN: Soft and nontender with normal bowel sounds. SKIN: Skin is clear with no lesions or rashes and otherwise unremarkable. NEUROLOGIC: Patient is alert and oriented x3. Cranial nerves II through XII are grossly intact. Motor and sensory are also intact. Normal speech, volume and content. Symmetrical smile. MUSCULOSKELETAL: Normal extremities with adequate strength and full range of motion. LYMPHATICS: No significant lymphadenopathy is noted PSYCHIATRIC: Normal psychiatric evaluation. Limitations: no limitations Course Vital Signs 04/20/19 04/20/19 04/20/19 11:18 11:44 13:15 Temperature 98.7 F Pulse Rate 89 87 75 Respiratory 18 16 18 Rate Blood Pressure 106/69 107/76 106/70 O2 Sat by Pulse 97 95 98 Oximetry Medical Decision Making - Medical Decision Making EKG shows normal sinus rhythm at 89 bpm MD interval 298 QRSs 114 QT interval 394 QTC is 479. Patient's EKG shows no ST segment elevation or depression. No Patient states the 2 new meds she started on was a calcium channel marcso and flecainide a few weeks ago. CT of the chest shows no PE. Patient had a 24.5 white count. No signs of infection or found. I spoke with Dr. Nuñez he agreed to admit the patient admitted the patient I consulted cardiology because of the new medications, I consulted infectious disease because of leukocytosis. I consult oncology because of the history of lymphoma. - Lab Data Result diagrams: 04/20/19 11:38 04/20/19 11:38 Lab Results 04/20/19 04/20/19 04/20/19 Range/Units 11:38 11:38 11:38 WBC 24.5 H (3.8-10.6) k/uL RBC 4.50 (4.30-5.90) m/uL Hgb 12.9 L (13.0-17.5) gm/dL Hct 40.1 (39.0-53.0) % MCV 89.2 (80.0-100.0) fL MCH 28.6 (25.0-35.0) pg MCHC 32.1 (31.0-37.0) g/dL RDW 13.6 (11.5-15.5) % Plt Count 436 (150-450) k/uL Neutrophils % 90 % Lymphocytes % 6 % Monocytes % 3 % Eosinophils % 0 % Basophils % 0 % Neutrophils # 21.9 H (1.3-7.7) k/uL Lymphocytes # 1.4 (1.0-4.8) k/uL Monocytes # 0.8 (0-1.0) k/uL Eosinophils # 0.1 (0-0.7) k/uL Basophils # 0.0 (0-0.2) k/uL PT 9.9 (9.0-12.0) sec INR 1.0 (<1.2) APTT 26.3 (22.0-30.0) sec D-Dimer 2.12 H (<0.60) mg/L FEU Sodium 135 L (137-145) mmol/L Potassium 4.6 (3.5-5.1) mmol/L Chloride 100 (98-107) mmol/L Carbon Dioxide 21 L (22-30) mmol/L Anion Gap 14 mmol/L BUN 19 (9-20) mg/dL Creatinine 0.96 (0.66-1.25) mg/dL Est GFR (CKD-EPI)AfAm >90 (>60 ml/min/1.73 sqM) Est GFR (CKD-EPI)NonAf 80 (>60 ml/min/1.73 sqM) Glucose 118 H (74-99) mg/dL Plasma Lactic Acid Evan (0.7-2.0) mmol/L Calcium 8.9 (8.4-10.2) mg/dL Magnesium 2.2 (1.6-2.3) mg/dL Total Bilirubin 0.8 (0.2-1.3) mg/dL AST 45 (17-59) U/L ALT 63 H (4-49) U/L Alkaline Phosphatase 271 H (38-126) U/L Troponin I (0.000-0.034) ng/mL Total Protein 6.7 (6.3-8.2) g/dL Albumin 3.6 (3.5-5.0) g/dL TSH 1.560 (0.465-4.680) mIU/L Free T4 1.05 (0.78-2.19) ng/dL Urine Color Urine Appearance (Clear) Urine pH (5.0-8.0) Ur Specific [place] (1.001-1.035) Urine Protein (Negative) Urine Glucose (UA) (Negative) Urine Ketones (Negative) Urine Blood (Negative) Urine Nitrite (Negative) Urine Bilirubin (Negative) Urine Urobilinogen (<2.0) mg/dL Ur Leukocyte Esterase (Negative) Group A Strep Rapid (Negative) 04/20/19 04/20/19 04/20/19 Range/Units 11:38 11:38 13:14 WBC (3.8-10.6) k/uL RBC (4.30-5.90) m/uL Hgb (13.0-17.5) gm/dL Hct (39.0-53.0) % MCV (80.0-100.0) fL MCH (25.0-35.0) pg MCHC (31.0-37.0) g/dL RDW (11.5-15.5) % Plt Count (150-450) k/uL Neutrophils % % Lymphocytes % % Monocytes % % Eosinophils % % Basophils % % Neutrophils # (1.3-7.7) k/uL Lymphocytes # (1.0-4.8) k/uL Monocytes # (0-1.0) k/uL Eosinophils # (0-0.7) k/uL Basophils # (0-0.2) k/uL PT (9.0-12.0) sec INR (<1.2) APTT (22.0-30.0) sec D-Dimer (<0.60) mg/L FEU Sodium (137-145) mmol/L Potassium (3.5-5.1) mmol/L Chloride (98-107) mmol/L Carbon Dioxide (22-30) mmol/L Anion Gap mmol/L BUN (9-20) mg/dL Creatinine (0.66-1.25) mg/dL Est GFR (CKD-EPI)AfAm (>60 ml/min/1.73 sqM) Est GFR (CKD-EPI)NonAf (>60 ml/min/1.73 sqM) Glucose (74-99) mg/dL Plasma Lactic Acid Vean 1.2 (0.7-2.0) mmol/L Calcium (8.4-10.2) mg/dL Magnesium (1.6-2.3) mg/dL Total Bilirubin (0.2-1.3) mg/dL AST (17-59) U/L ALT (4-49) U/L Alkaline Phosphatase (38-126) U/L Troponin I <0.012 (0.000-0.034) ng/mL Total Protein (6.3-8.2) g/dL Albumin (3.5-5.0) g/dL TSH (0.465-4.680) mIU/L Free T4 (0.78-2.19) ng/dL Urine Color Light Yellow Urine Appearance Clear (Clear) Urine pH 7.0 (5.0-8.0) Ur Specific [place] 1.008 (1.001-1.035) Urine Protein Negative (Negative) Urine Glucose (UA) Negative (Negative) Urine Ketones Negative (Negative) Urine Blood Negative (Negative) Urine Nitrite Negative (Negative) Urine Bilirubin Negative (Negative) Urine Urobilinogen <2.0 (<2.0) mg/dL Ur Leukocyte Esterase Negative (Negative) Group A Strep Rapid (Negative) 04/20/19 Range/Units 13:15 WBC (3.8-10.6) k/uL RBC (4.30-5.90) m/uL Hgb (13.0-17.5) gm/dL Hct (39.0-53.0) % MCV (80.0-100.0) fL MCH (25.0-35.0) pg MCHC (31.0-37.0) g/dL RDW (11.5-15.5) % Plt Count (150-450) k/uL Neutrophils % % Lymphocytes % % Monocytes % % Eosinophils % % Basophils % % Neutrophils # (1.3-7.7) k/uL Lymphocytes # (1.0-4.8) k/uL Monocytes # (0-1.0) k/uL Eosinophils # (0-0.7) k/uL Basophils # (0-0.2) k/uL PT (9.0-12.0) sec INR (<1.2) APTT (22.0-30.0) sec D-Dimer (<0.60) mg/L FEU Sodium (137-145) mmol/L Potassium (3.5-5.1) mmol/L Chloride (98-107) mmol/L Carbon Dioxide (22-30) mmol/L Anion Gap mmol/L BUN (9-20) mg/dL Creatinine (0.66-1.25) mg/dL Est GFR (CKD-EPI)AfAm (>60 ml/min/1.73 sqM) Est GFR (CKD-EPI)NonAf (>60 ml/min/1.73 sqM) Glucose (74-99) mg/dL Plasma Lactic Acid Evan (0.7-2.0) mmol/L Calcium (8.4-10.2) mg/dL Magnesium (1.6-2.3) mg/dL Total Bilirubin (0.2-1.3) mg/dL AST (17-59) U/L ALT (4-49) U/L Alkaline Phosphatase (38-126) U/L Troponin I (0.000-0.034) ng/mL Total Protein (6.3-8.2) g/dL Albumin (3.5-5.0) g/dL TSH (0.465-4.680) mIU/L Free T4 (0.78-2.19) ng/dL Urine Color Urine Appearance (Clear) Urine pH (5.0-8.0) Ur Specific [place] (1.001-1.035) Urine Protein (Negative) Urine Glucose (UA) (Negative) Urine Ketones (Negative) Urine Blood (Negative) Urine Nitrite (Negative) Urine Bilirubin (Negative) Urine Urobilinogen (<2.0) mg/dL Ur Leukocyte Esterase (Negative) Group A Strep Rapid Negative (Negative) Disposition Clinical Impression: Leukocytosis, Fatigue, Dyspnea, Night sweats Disposition: ADMITTED IP TO THIS HOSP Referrals: Hemanth Meza MD [Primary Care Provider] - 1-2 days Time of Disposition: 15:58
[2019-04-20 11:59] LABS: Basophils % (A) 0 %; Eosinophils # (A) 0.1 k/uL (0-0.7); Eosinophils % (A) 0 %; HCT 40.1 % (39.0-53.0); HGB 12.9 gm/dL (13.0-17.5); Lymphocytes # (A) 1.4 k/uL (1.0-4.8); Lymphocytes % (A) 6 %; MCH 28.6 pg (25.0-35.0); MCHC 32.1 g/dL (31.0-37.0); MCV 89.2 fL (80.0-100.0); Mean Platelet Volume 8.8; Monocytes # (A) 0.8 k/uL (0-1.0); Monocytes % (A) 3 %; Neutrophils # (A) 21.9 k/uL (1.3-7.7); Neutrophils % (A) 90 %; Platelet Count 436 k/uL (150-450); RDW 13.6 % (11.5-15.5); WBC 24.5 k/uL (3.8-10.6)
[2019-04-20 12:03] LABS: ALT 63 U/L (4-49); AST 45 U/L (17-59); African American GFR (CKD) >90 (>60 ml/min/1.73 sqM); Albumin 3.6 g/dL (3.5-5.0); Alkaline Phosphatase 271 U/L (38-126); Anion Gap 14 mmol/L; Blood Urea Nitrogen 19 mg/dL (9-20); Calcium 8.9 mg/dL (8.4-10.2); Carbon Dioxide 21 mmol/L (22-30); Chloride 100 mmol/L (98-107); Glucose 118 mg/dL (74-99); Magnesium 2.2 mg/dL (1.6-2.3); Non-African American GFR(CKD) 80 (>60 ml/min/1.73 sqM); Potassium 4.6 mmol/L (3.5-5.1); Sodium 135 mmol/L (137-145); Total Bilirubin 0.8 mg/dL (0.2-1.3); Total Protein 6.7 g/dL (6.3-8.2)
--- NOTE | 2019-04-20 12:17 | XR ---
EXAMINATION TYPE: XR chest 2V DATE OF EXAM: 04/20/2019 COMPARISON: Prior chest x-ray 03/08/2019 HISTORY: Weakness, chest pain TECHNIQUE: Frontal and lateral views of the chest are obtained. FINDINGS: There is no focal air space opacity, pleural effusion, or pneumothorax seen. The cardiac silhouette size is within normal limits. The osseous structures are intact, there is thoracic spond ylosis. There are overlying cardiac leads. The aorta is dense. IMPRESSION: No acute cardiopulmonary process.
[2019-04-20 12:21] LABS: T4, Free (Free Thyroxine) 1.05 ng/dL (0.78-2.19)
[2019-04-20 12:48] LABS: Partial Thromboplastin Time 26.3 sec (22.0-30.0); Prothrombin Time 9.9 sec (9.0-12.0)
[2019-04-20 12:50] LABS: D-Dimer 2.12 mg/L FEU (<0.60)
[2019-04-20] MEDS ORDERED: SODIUM CHLORIDE 0.9% 1,000 ML IV ONE (13:17)
[2019-04-20] MEDS ORDERED: LEVOFLOXACIN 750MG-D5W PMX 750 MG in DEXTROSE/WATER 1 150ML.BAG IVPB STA (13:17)
[2019-04-20] MEDS ORDERED: HYDROmorphone 0.5 MG/0.5 ML SYRINGE IVP PRN (13:18)
[2019-04-20 13:22] LABS: Appearance,Urine Clear (Clear); Bilirubin,Urine Negative (Negative); Blood,Urine Negative (Negative); Color,Urine Light Yellow; Glucose,Urine (UA) Negative (Negative); Ketones,Urine Negative (Negative); Leukocyte Esterase,Urine Negative (Negative); Nitrite,Urine Negative (Negative); Protein,Urine Negative (Negative); Specific Gravity,Urine 1.008 (1.001-1.035); Urobilinogen,Urine <2.0 mg/dL (<2.0)
--- NOTE | 2019-04-20 14:08 | CT ---
EXAMINATION TYPE: CT chest angio for PE DATE OF EXAM: 04/20/2019 COMPARISON: 06/24/2017 HISTORY: Chest Pain, SOB CT DLP: 524.3 mGycm CONTRAST: CT chest with contrast and 3D reconstruction with MIP imaging is performed with IV Contrast, patient injected with 100 mL of Isovue 370. Contrast-enhanced CT of the chest was performed through the course of the pulmonary arteries with james g and mediastinal window settings submitted. 3D reconstruction with MIP imaging was also performed. PULMONARY ARTERIES: The pulmonary arteries and their major tributaries are patent. I do not see angie dence for sizable filling defect to suggest pulmonary embolic process. LUNGS: The lungs are clear and free of infiltrate. No evidence for atelectasis. No pulmonary nodule or mass is detected. No pleural effusion. MEDIASTINUM: Thoracic aorta is of normal caliber,however, evaluation is limited given timing of the contrast bolus. If there is concern for thoracic aortic pathology consider VIC. Correlate clinicall y . The heart is not enlarged. No evidence for mediastinal mass. No mediastinal lymph nodes greater than 1cm. HILAR STRUCTURES: No evidence for mass. No hilar lymph nodes greater than 1 cm. UPPER ABDOMEN: Simple cyst left hepatic lobe. IMPRESSION: 1. No evidence for Pulmonary embolism at this time.
[2019-04-20] MEDS ORDERED: METOCLOPRAMIDE 5 MG/ML 2 ML VIAL IVP SCH (18:00)
[2019-04-20] MEDS ORDERED: ALBUTEROL NEBULIZED 2.5 MG/3 ML INHALATION PRN (20:13)
[2019-04-20] MEDS ORDERED: ALPRAZolam 0.25 MG TAB PO PRN (20:13)
[2019-04-20] MEDS ORDERED: ACETAMINOPHEN TAB 500 MG TAB PO PRN (21:00)
[2019-04-20] MEDS ORDERED: diphenhydrAMINE 25 MG CAP PO PRN (21:00)
[2019-04-20] MEDS: FLECAINIDE 50 MG TAB PO SCH (21:18)
[2019-04-20] MEDS: APIXABAN 5 MG TAB PO SCH (21:18)
[2019-04-20] MEDS ORDERED: FLUCONAZOLE 100 MG TAB PO ONE (21:48)
[2019-04-20] MEDS: NYSTATIN 100,000 UNIT/ML SUSP 500,000 UNIT/5 ML CUP PO SCH (23:10)
--- NOTE | 2019-04-21 00:32 | P.CONS ---
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 Ochoa every 3 months and mention his white count has been normal, patient apparently was recently admitted to the hospital and has received multiple breathing treatments patient said he did develop thrush for which she was treated with some macerated swish and swallow and did have some improvement however no seems to have a persistent throat discomfort which have been scratchy but denies any difficulty swallowing,, the patient denies having any fever or any chills and no other URI symptoms, he did have an episode of chest pain yesterday and be completed or shortness of breath on minimal exertion denies any abdominal pain no diarrhea and no urinary symptoms, patient been complaining of night sweats, but no significant weight loss, patient was evaluated by the ER physician on arrival to the ER the patient has been afebrile he did have elevated white count of 24,000, admitted her chest that was negative, CT and abdomen was negative for PE or any pneumonia, influenza testing was negative and UA has been negative throat swab has been sent for group A strep which came back negative, infectious disease has been consulted for further recommendation regarding his elevated white count Review of Systems Positive point has been mentioned in the HPI rest of the systems are negative Past Medical History Past Medical History: Atrial Fibrillation Additional Past Medical History / Comment(s): mantle lymphoma, basal cell carcinoma (in remission) History of Any Multi-Drug Resistant Organisms: None Reported Past Surgical History: Hernia Repair Additional Past Surgical History / Comment(s): removal of skin cancer Past Anesthesia/Blood Transfusion Reactions: No Reported Reaction Past Psychological History: No Psychological Hx Reported Smoking Status: Never smoker Past Alcohol Use History: Occasional Past Drug Use History: None Reported - Past Family History Brother(s) Family Medical History: Cancer Additional Family Medical History / Comment(s): Patient has 2 brothers and both have passed one from multiple myeloma and one from multiple problems from obesity. Father Family Medical History: No Reported History Additional Family Medical History / Comment(s): Father was healthy and lived to be 95 yrs old. Mother Family Medical History: Vascular Disorder Additional Family Medical History / Comment(s): Mother at the age of 74 yrs from a ruptured aortic aneurysm. Son(s) Additional Family Medical History / Comment(s): Patient has 2 sons with no major medical problems. Patient doesn't have any sisters. Medications and Allergies Home Medications Medication Instructions Recorded Confirmed Type ALPRAZolam [Xanax] 0.25 mg PO TID PRN 01/12/14 04/20/19 History Meloxicam 7.5 mg PO DAILY 01/12/14 04/20/19 History Albuterol Inhaler [Ventolin Hfa 1 - 2 puff INHALATION RT-QID PRN 06/24/17 04/20/19 History Inhaler] Budesonide/Formoterol Fumarate 2 puff INHALATION RT-BID PRN 06/24/17 04/20/19 History [Symbicort 160-4.5 Mcg Inhaler] Glucosam/Amador-Msm1/C/Julio/Bosw 1 tab PO DAILY 06/24/17 04/20/19 History [Glucosamine-Chondroitin Tablet] Albuterol Nebulized [Ventolin 2.5 mg INHALATION RT-Q6H 03/03/19 04/20/19 History Nebulized] Cholecalciferol [Vitamin D3 (25 1,000 unit PO DAILY 03/03/19 04/20/19 History Mcg = 1000 Iu)] Gentle Iron 28 1 cap PO DAILY 03/03/19 04/20/19 History Magnesium Gluconate 100mg 100 mg PO DAILY 03/03/19 04/20/19 History Turmeric Root Extract [Turmeric] 500 mg PO DAILY 03/03/19 04/20/19 History Apixaban [Eliquis] 5 mg PO BID #60 tab 03/05/19 04/20/19 Rx Diltiazem Cd [Cardizem CD] 180 mg PO DAILY #30 cap.er.24h 03/05/19 04/20/19 Rx Flecainide Acetate [Tambocor] 100 mg PO Q12HR #60 tab 03/10/19 04/20/19 Rx Acetaminophen/Diphenhydramine 1 tab PO HS PRN 04/20/19 04/20/19 History [Tylenol PM 500-25mg] Multivitamins, Thera [Multivitamin 1 tab PO DAILY 04/20/19 04/20/19 History (formulary)] Allergies Allergy/AdvReac Type Severity Reaction Status Date / Time Penicillins Allergy Severe Rash/Hives Verified 04/20/19 11:18 benzonatate AdvReac Dyspnea Verified 04/20/19 11:18 [From Harper Yanez] Physical Exam Vitals: Vital Signs Temp Pulse Resp BP Pulse Ox 04/20/19 17:04 77 18 110/71 98 04/20/19 13:15 75 18 106/70 98 04/20/19 11:44 87 16 107/76 95 04/20/19 11:18 98.7 F 89 18 106/69 97 Intake and Output 04/20/19 04/20/19 04/20/19 06:59 14:59 22:59 Other: Weight 95.254 kg GENERAL DESCRIPTION: An elderly male lying in bed, no distress. No tachypnea or accessory muscle of respiration use. HEENT: Shows Pallor , no scleral icterus. Oral mucous membrane is dry. No pharyngeal erythema or thrush NECK: Trachea central, no thyromegaly. LUNGS: Unlabored breathing. Clear to auscultation anteriorly. No wheeze or cr ackle. HEART: S1, S2, regular rate and rhythm. No loud murmur ABDOMEN: Soft, no tenderness , guarding or rigidity, no organomegaly EXTREMITIES: No edema of feet. SKIN: No rash, no masses palpable. NEUROLOGICAL: The patient is awake, alert, oriented x3, mood and affect normal. Results CBC & Chem 7: 04/20/19 11:38 04/20/19 11:38 Labs: Abnormal Lab Results - Last 24 Hours (Table) 04/20/19 04/20/19 04/20/19 Range/Units 11:38 11:38 11:38 WBC 24.5 H (3.8-10.6) k/uL Hgb 12.9 L (13.0-17.5) gm/dL Neutrophils # 21.9 H (1.3-7.7) k/uL D-Dimer 2.12 H (<0.60) mg/L FEU Sodium 135 L (137-145) mmol/L Carbon Dioxide 21 L (22-30) mmol/L Glucose 118 H (74-99) mg/dL ALT 63 H (4-49) U/L Alkaline Phosphatase 271 H (38-126) U/L Assessment and Plan Assessment: 1-patient presented to hospital with generalized weakness no energy shortness of breath some night sweats in this patient who did have a history of 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 now with evidence of leukocytosis along with the night sweats is concerning for possible recurrence of his hematological malignancy as the patient do not have obvious clinical focus of infection patient CT in August was negative for any pneumonia UA has been negative and no evidence of any cellulitis patient had been complaining of some scratchy throat and previous history of thrush could be a component of thrush or oropharyngeal candidiasis (1) Thrush Current Visit: Yes Status: Acute Code(s): B37.0 - CANDIDAL STOMATITIS SNOMED Code(s): 12320675 (2) Leukocytosis Current Visit: Yes Status: Acute Code(s): D72.829 - ELEVATED WHITE BLOOD CE LL COUNT, UNSPECIFIED SNOMED Code(s): 232817863 Plan: 1-we'll add nystatin swish and swallow and Diflucan 200 mg 1 2-we will check inflammatory markers and repeat a CBC tomorrow 3-may benefit from bone marrow aspirate to rule out underlying hematological malignancy We will follow on clinical condition and cultures to further adjust medication if needed Thank you for this consultation will follow this patient with you
[2019-04-21] MEDS ORDERED: ALBUTEROL NEBULIZED 2.5 MG/3 ML INHALATION SCH (02:00)
[2019-04-21] MEDS: SYMBICORT 160-4.5 MCG INHALER INHALATION SCH ×2 (07:48→21:07)
[2019-04-21 08:34] LABS: Calcium 8.8 mg/dL (8.4-10.2); Potassium 4.3 mmol/L (3.5-5.1)
[2019-04-21 08:35] LABS: Basophils % (A) 0 %; Eosinophils # (A) 0.1 k/uL (0-0.7); Eosinophils % (A) 1 %; HCT 37.5 % (39.0-53.0); HGB 11.8 gm/dL (13.0-17.5); Lymphocytes # (A) 1.4 k/uL (1.0-4.8); Lymphocytes % (A) 9 %; MCH 28.6 pg (25.0-35.0); MCHC 31.6 g/dL (31.0-37.0); MCV 90.5 fL (80.0-100.0); Mean Platelet Volume 8.6; Monocytes # (A) 0.6 k/uL (0-1.0); Monocytes % (A) 4 %; Neutrophils # (A) 14.3 k/uL (1.3-7.7); Neutrophils % (A) 85 %; Platelet Count 400 k/uL (150-450); RBC 4.15 m/uL (4.30-5.90); RDW 13.5 % (11.5-15.5); WBC 16.8 k/uL (3.8-10.6)
[2019-04-21] MEDS: MULTIVITAMINS, THERA 1 EACH TAB PO SCH (09:17)
[2019-04-21] MEDS: FERROUS SULFATE 325 MG TAB PO SCH (09:17)
[2019-04-21] MEDS: NYSTATIN 100,000 UNIT/ML SUSP 500,000 UNIT/5 ML CUP PO SCH ×4 (09:17→21:25)
[2019-04-21] MEDS: DILTIAZEM CD 180 MG CAP.ER.24H PO SCH (09:17)
[2019-04-21] MEDS: CHOLECALCIFEROL 1,000 UNIT TAB PO SCH (09:17)
[2019-04-21] MEDS: FLECAINIDE 50 MG TAB PO SCH ×2 (09:17→21:25)
[2019-04-21] MEDS: APIXABAN 5 MG TAB PO SCH ×2 (09:18→21:25)
[2019-04-21 09:39] LABS: C Reactive Protein 77.2 mg/L (<10.0)
[2019-04-21] MEDS: NON FORMULARY DRUG (Glucosam/Chon-Msm1/C/Mang/Bosw [Glucosamine-Chondroitin Tablet] 1 TAB) PO SCH (10:21)
[2019-04-21] MEDS: MAGNESIUM GLUCONATE PO SCH (10:22)
[2019-04-21] MEDS ORDERED: FLUCONAZOLE 100 MG TAB PO ONE (11:42)
[2019-04-21] MEDS: IOPAMIDOL CONTRAST (ORAL USE) VIAL PO PRN ×2 (12:59→14:00)
--- NOTE | 2019-04-21 13:00 | US ---
EXAMINATION TYPE: US venous doppler duplex LE RT DATE OF EXAM: 04/21/2019 10:54 AM COMPARISON: NONE CLINICAL HISTORY: unilateral swelling. Right leg swelling SIDE PERFORMED: Right TECHNIQUE: The lower extremity deep venous system is examined utilizing real time linear array sonog jane with graded compression, doppler sonography and color-flow sonography. VESSELS IMAGED: External Iliac Vein (EIV) Common Femoral Vein Deep Femoral Vein Greater Saphenous Vein * Femoral Vein Popliteal Vein Small Saphenous Vein * Proximal Calf Veins (* superficial vessels) There is normal flow, compressibility, vascular waveforms. Right Leg: Negative for DVT IMPRESSION: No evident deep venous thrombosis at or above the right knee.
--- NOTE | 2019-04-21 14:11 | P.HPIM ---
History of Present Illness H&P Date: 04/21/19 Chief Complaint: fatigue This patient is 73-year-old male patient of Dr. Meza and Dr. 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 The patient gives history that he has had difficulty tolerating the Lopressor in the past. He has recently been treated for bronchitis. He had a hospitalization at which he was treated for sinus tachycardia and started on flecainide and also treated for reactive bronchospasm and wheezing with possible underlying chronic asthmatic bronchitis. Patient complains of night sweats that are severe the been going on for the last few weeks along with having an episode of right upper chest pain, extreme fatigue especially with exertion. He complains of shortness of breath with exertion. Complains of throat pain especially with swallowing or coughing. Patient is on nebulizer treatments at home without improvement. No fever, no cough. Chest pain is in the upper anterior chest area. He denies any chest pain for now. He has also been having sore throat since his admission and February. Patient has had decreased appetite for the past 4 days which his believes is related to the sore throat with possibly some minimal weight loss. He denies any recent steroid use. Patient and his are planning to leave for [place] either on Saturday or Saturday. Plan is to complete current testing, follow-up in the office prior to trip to [place]. Patient was brought into [facility] emergency center. He was found to be afebrile, heart rate 89, blood pressure 106/69, pulse ox 97% on room air. WBC 24.5, hemoglobin 12.9, platelet count 436. Sodium 135,, CO2 21, creatinine 0.96, blood sugar 118. Total bilirubin 0.8, AST 45, ALT 63, alkaline phosphatase 271. Pro-calcitonin 0.15. TSH 1.560 and free T4 normal. Urinalysis clear with nitrate and leukoesterase negative. Influenza testing negative. Group A strep negative. Chest x-ray negative for acute cardiopulmonary disease. CT chest angiogram negative for pulmonary embolism. Patient admitted to the [facility] floor. Patient has been seen by Dr. Coon and added nystatin swish and swallow along with Diflucan 1, check inflammatory rito ers. Recommend bone marrow biopsy for possible recurrence of his hematological malignancy. No obvious medical focus of infection to account for night sweats and leukocytosis. There is a consult in place for cardiology and oncology. Oncology has advised for ultrasound of the right lower extremity which is negative for DVT and CAT scan of the abdomen and pelvis with contrast. Review of Systems Constitutional: Reports fatigue, Reports weakness, Denies anorexia, Denies chills, reports decreased appetite Eyes: denies blurred vision, denies pain Ears, nose, mouth and throat: Denies headache, Denies nasal congestion, Denies nasal discharge, reports sore throat, Denies vertigo Cardiovascular: Denies lightheadedness, Denies chest pain, Denies dyspnea on exertion Respiratory: Reports cough, Reports cough with sputum, Reports dyspnea, Reports respiratory infections, Reports wheezing, Denies home oxygen Gastrointestinal: Denies abdominal pain, Denies diarrhea, Denies loss of appetite, Denies nausea, Denies vomiting Genitourinary: Denies dysuria, Denies urinary retention Musculoskeletal: Reports muscle weakness, Denies frequent falls, Denies gait dysfunction, Denies myalgias Integumentary: Denies pruritus, Denies rash, Denies wounds Neurological: Denies change in mentation, Denies change in speech, Denies numbness, Denies seizures, Denies weakness Psychiatric: Denies anxiety, Denies depression Endocrine: Denies fatigue, Denies weight change Past Medical History Past Medical History: Atrial Fibrillation Additional Past Medical History / Comment(s): mantle lymphoma, basal cell carcinoma (in remission) History of Any Multi-Drug Resistant Organisms: None Reported Past Surgical History: Hernia Repair Additional Past Surgical History / Comment(s): removal of skin cancer Past Anesthesia/Blood Transfusion Reactions: No Reported Reaction Past Psychological History: No Psychological Hx Reported Smoking Status: Never smoker Past Alcohol Use History: Occasional Past Drug Use History: None Reported - Past Family History Brother(s) Family Medical History: Cancer Additional Family Medical History / Comment(s): Patient has 2 brothers and both have passed one from multiple myeloma and one from multiple problems from obesity. Father Family Medical History: No Reported History Additional Family Medical History / Comment(s): Father was healthy and lived to be 95 yrs old. Mother Family Medical History: Vascular Disorder Additional Family Medical History / Comment(s): Mother at the age of 74 yrs from a ruptured aortic aneurysm. Son(s) Additional Family Medical History / Comment(s): Patient has 2 sons with no major medical problems. Patient doesn't have any sisters. Medications and Allergies Home Medications Medication Instructions Recorded Confirmed Type ALPRAZolam [Xanax] 0.25 mg PO TID PRN 01/12/14 04/20/19 History Meloxicam 7.5 mg PO DAILY 01/12/14 04/20/19 History Albuterol Inhaler [Ventolin Hfa 1 - 2 puff INHALATION RT-QID PRN 06/24/17 04/20/19 History Inhaler] Budesonide/Formoterol Fumarate 2 puff INHALATION RT-BID PRN 06/24/17 04/20/19 History [Symbicort 160-4.5 Mcg Inhaler] Glucosam/Amador-Msm1/C/Julio/Bosw 1 tab PO DAILY 06/24/17 04/20/19 History [Glucosamine-Chondroitin Tablet] Albuterol Nebulized [Ventolin 2.5 mg INHALATION RT-Q6H 03/03/19 04/20/19 History Nebulized] Cholecalciferol [Vitamin D3 (25 1,000 unit PO DAILY 03/03/19 04/20/19 History Mcg = 1000 Iu)] Gentle Iron 28 1 cap PO DAILY 03/03/19 04/20/19 History Magnesium Gluconate 100mg 100 mg PO DAILY 03/03/19 04/20/19 History Turmeric Root Extract [Turmeric] 500 mg PO DAILY 03/03/19 04/20/19 History Apixaban [Eliquis] 5 mg PO BID #60 tab 03/05/19 04/20/19 Rx Diltiazem Cd [Cardizem CD] 180 mg PO DAILY #30 cap.er.24h 03/05/19 04/20/19 Rx Flecainide Acetate [Tambocor] 100 mg PO Q12HR #60 tab 03/10/19 04/20/19 Rx Acetaminophen/Diphenhydramine 1 tab PO HS PRN 04/20/19 04/20/19 History [Tylenol PM 500-25mg] Multivitamins, Thera [Multivitamin 1 tab PO DAILY 04/20/19 04/20/19 History (formulary)] Allergies Allergy/AdvReac Type Severity Reaction Status Date / Time Penicillins Allergy Severe Rash/Hives Verified 04/20/19 11:18 benzonatate AdvReac Dyspnea Verified 04/20/19 11:18 [From Harper Yanez] Physical Exam Vitals: Vital Signs Temp Pulse Pulse Resp BP BP Pulse Ox 04/21/19 04:29 97.9 F 104 H 18 107/68 95 04/20/19 20:48 98.4 F 74 17 101/61 94 L 04/20/19 18:13 84 18 101/74 98 04/20/19 17:04 77 18 110/71 98 04/20/19 13:15 75 18 106/70 98 04/20/19 11:44 87 16 107/76 95 04/20/19 11:18 98.7 F 89 18 106/69 97 Intake and Output 04/20/19 04/21/19 04/21/19 22:59 06:59 14:59 Intake Total 720 120 Balance 720 120 Intake: Oral 720 120 Other: # Voids 1 1 Weight 95.254 kg Gen: This is a 73-year-old male. He is sitting up in bed and appears to be comfortable and in no acute distress. HEENT: Head is atraumatic, normocephalic. Pupils equal, round. Sclerae is anicteric. NECK: Supple. No JVD. No lymphadenopathy. No thyromegaly. LUNGS: Scattered rhonchi and expiratory wheeze. No intercostal retractions. HEART: Regular rate and rhythm. No murmur. ABDOMEN: Soft. Bowel sounds are present. No masses. No tenderness. EXTREMITIES: No pedal edema. No calf tenderness. Dorsalis pedis +2 bilaterally. NEUROLOGICAL: Patient is awake, alert and oriented x3. Cranial nerves 2 through 12 are grossly intact. Results CBC & Chem 7: 04/21/19 07:48 04/21/19 07:48 Labs: Abnormal Lab Results - Last 24 Hours (Table) 04/20/19 04/20/19 04/20/19 Range/Units 11:38 11:38 11:38 WBC 24.5 H (3.8-10.6) k/uL RBC (4.30-5.90) m/uL Hgb 12.9 L (13.0-17.5) gm/dL Hct (39.0-53.0) % Neutrophils # 21.9 H (1.3-7.7) k/uL D-Dimer 2.12 H (<0.60) mg/L FEU Sodium 135 L (137-145) mmol/L Carbon Dioxide 21 L (22-30) mmol/L Glucose 118 H (74-99) mg/dL ALT 63 H (4-49) U/L Alkaline Phosphatase 271 H (38-126) U/L Procalcitonin (0.02-0.09) ng/mL 04/20/19 04/21/19 04/21/19 Range/Units 11:38 07:48 07:48 WBC 16.8 H (3.8-10.6) k/uL RBC 4.15 L (4.30-5.90) m/uL Hgb 11.8 L (13.0-17.5) gm/dL Hct 37.5 L (39.0-53.0) % Neutrophils # 14.3 H (1.3-7.7) k/uL D-Dimer (<0.60) mg/L FEU Sodium 136 L (137-145) mmol/L Carbon Dioxide (22-30) mmol/L Glucose 133 H (74-99) mg/dL ALT (4-49) U/L Alkaline Phosphatase (38-126) U/L Procalcitonin 0.15 H (0.02-0.09) ng/mL Microbiology - Last 24 Hours (Table) 04/20/19 13:15 Group A Strep Throat Culture - Preliminary Throat Thrombosis Risk Factor Assmnt - DVT/VTE Prophylaxis DVT/VTE Prophylaxis: Mechanical Prophylaxis ordered - Choose All That Apply Any of the Below Risk Factors Present?: Yes Each Factor Represents 1 point: Obesity (BMI >25) Each Risk Factor Represents 2 Points: Age 61-74 years Thrombosis Risk Factor Assessment Total Risk Factor Score: 3 Thrombosis Risk Factor Assessment Level: Moderate Risk Assessment and Plan Plan: 1. Fatigue, night sweats, chills, rigors, sore throat and leukocytosis of unclear etiology. Consults with oncology and infectious disease appreciated. C AT scan of the abdomen and pelvis ordered. Repeat lab work in the morning. Patient refused to take Diflucan 1 dose yesterday as ordered by Dr. Coon. He is agreeable at this time and will be reordered. Continue nystatin oral. 2. Paroxysmal atrial fibrillation, currently in a sinus rhythm. Cardiology consult. Rhythm does not seem to be culprit of fatigue. Continue eliquis 5 mg twice daily, Cardizem CD 180 mg daily, flecainide 100 mg every 12 hours. 3. Mantle cell lymphoma status post bone marrow transplantation, stable. Oncology consult appreciated. 4. History of basal cell carcinoma. 5. DVT prophylaxis. Early ambulation. 6. GI prophylaxis. Protonix. Patient will be admitted to the hospital for a minimum of 2 night stay. Discharge plan: Return home on Saturday Impression and plan of care have been directed as dictated by the signing physician. Gianna Silver nurse practitioner acting as scribe for signing physician.
--- NOTE | 2019-04-21 15:21 | P.CONS ---
History of Present Illness - Reason for Consult Consult date: 04/21/19 leukocytosis, Hx mantle cell lymphoma Requesting physician: Raz Sharma - Chief Complaint SOB, fatigue - History of Present Illness Mister Jackson is a very pleasant 73-year-old male patient who was first seen in the hospital 11/23/12. He was admitted for mild, vague intermittent abdominal pain, CT AP on 11/23/12 showed hepatosplenomegaly, multiple masses within the peritoneal cavity and several mural lesions involving segments of the small intestine without obstruction, leukocytosis with WBC 17,000, CBC otherwise normal. CT of the chest show prominent mediastinal and hilar lymph nodes. 11/26/12 bone marrow biopsy and aspirate revealed 20% involvement with mantle cell lymphoma, immunoperoxidase positive CD20 and cyclin D1. Flow cytometry on peripheral blood consistent with CD5 positive clonal B-cell population, consistent with mantle cell. PET scan 12/06/12 revealed suspicious uptake in the adenopathies as seen on CT. Seen by Dr. Porter at [facility] 12/08/12, who also recommended aggressive approach to his disease. He was started on Maxi R CHOP 12/23/12. Had high-dose araC 01/13/13. Cycle 2 part a and B completed in February 2013. CT [facility]. Patient had cycle 3 part a and B completed mid March 2013. He had stem cell transplant at [facility] 05/04/13. Repeat PET scan at [facility] 05/24/14 revealed no evidence of disease. CT CAP 09/22/17 revealed no evidence of recurrence. Colonoscopy done on 10/02/17 (due to iron deficiency) was unremarkable. He has recently been in the hospital for bronchitis and A fib, had cardioversion, started on eliquis, he just completed tapering dose of prednisone when he saw Dr. Gan last week. Patient is currently admitted for progressive fatigue as well as dyspnea. CTA on admission was negative for pulmonary embolism. He has lost about 3 pounds in the last 3 months, mild fatigue, denies any adenopathies, sore throat, unusual or productive cough, chest pain, abdominal pain, distention, acute changes in bowel or bladder habits, pain in the legs, bleeding, unusual bruising. Review of Systems 14 point review of systems is negative except as stated in HPI Past Medical History Past Medical History: Atrial Fibrillation, Cancer Additional Past Medical History / Comment(s): mantle lymphoma, basal cell carcinoma (in remission) History of Any Multi-Drug Resistant Organisms: None Reported Past Surgical History: Hernia Repair Additional Past Surgical History / Comment(s): removal of skin cancer Past Anesthesia/Blood Transfusion Reactions: No Reported Reaction Past Psychological History: No Psychological Hx Reported Smoking Status: Never smoker Past Alcohol Use History: Occasional Past Drug Use History: None Reported - Past Family History Brother(s) Family Medical History: Cancer Additional Family Medical History / Comment(s): Patient has 2 brothers and both have passed one from multiple myeloma and one from multiple problems from obesity. Father Family Medical History: No Reported History Additional Family Medical History / Comment(s): Father was healthy and lived to be 95 yrs old. Mother Family Medical History: Vascular Disorder Additional Family Medical History / Comment(s): Mother at the age of 74 yrs from a ruptured aortic aneurysm. Son(s) Additional Family Medical History / Comment(s): Patient has 2 sons with no major medical problems. Patient doesn't have any sisters. Medications and Allergies Home Medications Medication Instructions Recorded Confirmed Type ALPRAZolam [Xanax] 0.25 mg PO TID PRN 01/12/14 04/20/19 History Meloxicam 7.5 mg PO DAILY 01/12/14 04/20/19 History Albuterol Inhaler [Ventolin Hfa 1 - 2 puff INHALATION RT-QID PRN 06/24/17 04/20/19 History Inhaler] Budesonide/Formoterol Fumarate 2 puff INHALATION RT-BID PRN 06/24/17 04/20/19 History [Symbicort 160-4.5 Mcg Inhaler] Glucosam/Amador-Msm1/C/Julio/Bosw 1 tab PO DAILY 06/24/17 04/20/19 History [Glucosamine-Chondroitin Tablet] Albuterol Nebulized [Ventolin 2.5 mg INHALATION RT-Q6H 03/03/19 04/20/19 History Nebulized] Cholecalciferol [Vitamin D3 (25 1,000 unit PO DAILY 03/03/19 04/20/19 History Mcg = 1000 Iu)] Gentle Iron 28 1 cap PO DAILY 03/03/19 04/20/19 History Magnesium Gluconate 100mg 100 mg PO DAILY 03/03/19 04/20/19 History Turmeric Root Extract [Turmeric] 500 mg PO DAILY 03/03/19 04/20/19 History Apixaban [Eliquis] 5 mg PO BID #60 tab 03/05/19 04/20/19 Rx Diltiazem Cd [Cardizem CD] 180 mg PO DAILY #30 cap.er.24h 03/05/19 04/20/19 Rx Flecainide Acetate [Tambocor] 100 mg PO Q12HR #60 tab 03/10/19 04/20/19 Rx Acetaminophen/Diphenhydramine 1 tab PO HS PRN 04/20/19 04/20/19 History [Tylenol PM 500-25mg] Multivitamins, Thera [Multivitamin 1 tab PO DAILY 04/20/19 04/20/19 History (formulary)] Allergies Allergy/AdvReac Type Severity Reaction Status Date / Time Penicillins Allergy Severe Rash/Hives Verified 04/20/19 11:18 benzonatate AdvReac Dyspnea Verified 04/20/19 11:18 [From Harper Yanez] Physical Exam Vitals: Vital Signs Temp Pulse Pulse Resp BP BP Pulse Ox 04/21/19 11:51 97.5 F L 83 17 98/69 95 04/21/19 04:29 97.9 F 104 H 18 107/68 95 04/20/19 20:48 98.4 F 74 17 101/61 94 L 04/20/19 18:13 84 18 101/74 98 04/20/19 17:04 77 18 110/71 98 Intake and Output 04/21/19 04/21/19 04/21/19 06:59 14:59 22:59 Intake Total 120 900 Balance 120 900 Intake: Oral 120 900 Other: # Voids 1 - Constitutional General appearance: average body habitus, cooperative, no acute distress - EENT Eyes: anicteric sclerae, EOMI, dentition normal ENT: hearing grossly normal, normal oropharynx - Neck Neck: no lymphadenopathy - Respiratory Respiratory: bilateral: CTA - Cardiovascular Heart sounds: normal: S1, S2 Abnormal Heart Sounds: no systolic murmur, no diastolic murmur, no rub, no S3 Gallop, no S4 Gallop, no click, no other leg Peripheral Edema: right: 1+, left: None - Gastrointestinal General gastrointestinal: no absent bowel sounds, no decreased bowel sounds, no distended, no hepatomegaly, no hyperactive bowel sounds, normal bowel sounds, no organomegaly, no rigid, no scaphoid, soft, no splenomegaly, no tenderness, no umbilical hernia, no ventral hernia - Integumentary Integumentary: normal - Neurologic Neurologic: CNII-XII intact - Musculoskeletal Musculoskeletal: strength equal bilaterally - Psychiatric Psychiatric: A&O x's 3, appropriate affect, intact judgment & insight Results CBC & Chem 7: 04/21/19 07:48 04/21/19 07:48 Labs: Abnormal Lab Results - Last 24 Hours (Table) 04/20/19 04/21/19 04/21/19 Range/Units 11:38 07:48 07:48 WBC 16.8 H (3.8-10.6) k/uL RBC 4.15 L (4.30-5.90) m/uL Hgb 11.8 L (13.0-17.5) gm/dL Hct 37.5 L (39.0-53.0) % Neutrophils # 14.3 H (1.3-7.7) k/uL Sodium 136 L (137-145) mmol/L Glucose 133 H (74-99) mg/dL C-Reactive Protein 77.2 H (<10.0) mg/L Procalcitonin 0.15 H (0.02-0.09) ng/mL Microbiology - Last 24 Hours (Table) 04/20/19 13:15 Group A Strep Throat Culture - Preliminary Throat CT scan - chest: report reviewed Assessment and Plan (1) Leukocytosis Narrative/Plan: Differential WBC increase noted to be neutrophilia. Suspect recent hospitalizations and steroid use as a potential cause. Due to patient mantle cell lymphoma Hx, it is not unreasonable to evaluate CT scans, last imaging was in 2018. CT of the abdomen and pelvis has been ordered. Continue to monitor CBC and differential while inpatient. Current Visit: Yes Status: Acute Priority: High Code(s): D72.829 - ELEVATED WHITE BLOOD CELL COUNT, UNSPECIFIED SNOMED Code(s): 287301441 (2) Dyspnea Narrative/Plan: Negative for PE, no pulmonary pathology on CT. Possible Cardiology consult due to recent cardiac diagnosis. Doppler or RLE ordered for unilateral swelling Current Visit: Yes Status: Acute Priority: High Code(s): R06.00 - DYSPNEA, UNSPECIFIED SNOMED Code(s): 871657932 (3) Fatigue Narrative/Plan: Possibly r/t a-fib? Work up continues re: Hx mantle cell lymphoma to rule out a recurrence Current Visit: Yes Status: Acute Priority: High Code(s): R53.83 - OTHER FATIGUE SNOMED Code(s): 10711612 Plan: attests: I performed history and physical examination of the patient, developed impression and plan of care. Discussed with dictator. Agree with documentation, dictated as a scribe
--- NOTE | 2019-04-21 15:33 | P.CRDCN ---
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 He follows in the office with Dr. Panda. We have been asked to see in consultation for shortness of breath. He states for the previous 2-3 days she has been experiencing throat pain, night sweats, fatigue and shortness of breath. He denies chest pain, dizziness or palpitations. EKG on arrival reveals sinus mechanism and telemetry tracings this far have showed persistent sinus mechanism. He underwent a cardioversion recently for symptomatic A. fib with RVR. At that time his flecainide was increased to 100 mg twice a day and he was initiated on Cardizem. Chest x-ray on admission was negative for an acute cardiopulmonary process, CTA of the chest negative for pulmonary embolism or aortic abnormality. Laboratory data reviewed, WBC on admission 20 4. 5 repeat today 16.8, hemoglobin 11.8, platelets 400, d-dimer 2.12, sodium 136, potassium 4.3, creatinine 1.02, magnesium 2.2, cardiac enzymes negative 1, C- reactive protein 77.2, pro-calcitonin 0.15, TSH 1.56. Current daily cardiac medications include Cardizem 180 mg daily, Eliquis 5 mg twice a day, flecainide 100 mg twice a day. Prior to cardioversion in February 2019 underwent transesophageal echocardiogram revealing mildly impaired LV systolic function with ejection fraction 45%. He had mild TR, mild to moderate MR, mild AR and no left atrial clot noted. REVIEW OF SYSTEMS At the time of my exam: CONSTITUTIONAL: Denies fever or chills. CARDIOVASCULAR: Denies chest pain, shortness of breath, orthopnea, PND or palpitations. RESPIRATORY: Denies cough. GASTROINTESTINAL: Denies abdominal pain, diarrhea, constipation, nausea or vomit ing. MUSCULOSKELETAL: Denies myalgias. NEUROLOGIC: Denies numbness, tingling or weakness. ENDOCRINE: Denies fatigue, weight change, polydipsia or polyurina. GENITOURINARY: Denies burning, hematuria or urgency with micturation. HEMATOLOGIC: Denies history of anemia or bleeding. PHYSICAL EXAMINATION Blood pressure 98/69 heart rate 83 afebrile and maintaining oxygen saturation on room air. CONSTITUTIONAL: No apparent distress. HEENT: Head is normocephalic. Pupils are equal, round. Sclerae anicteric. Mucous membranes of the mouth are moist. No JVD. No carotid bruit. CHEST EXAMINATION: Lungs are clear to auscultation. No chest wall tenderness is noted on palpation or with deep breathing. HEART EXAMINATION: Regular rate and rhythm. S1, S2 heard. Systolic ejection murmur at the left sternal border, no gallops or rub. ABDOMEN: Soft, nontender. Positive bowel sounds. EXTREMITIES: 2+ peripheral pulses, no lower extremity edema and no calf tenderness. NEUROLOGIC EXAMINATION: Patient is awake, alert and oriented x3. 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 No arrhythmia noted on telemetry tracings. Continues to maintain sinus mechanism. If he continues to feel fatigued may consider decreasing cardizem to 120 mg daily. This can be done as an outpatient with Dr. Panda at next follow up visit. Continue flecanide at 100 mg BID to maintain sinus mechanism. Thank you kindly for this consultation. Nurse Practitioner note has been reviewed, I agree with a documented findings and plan of care. Patient was seen and examined. Past Medical History Past Medical History: Atrial Fibrillation Additional Past Medical History / Comment(s): mantle lymphoma, basal cell carcinoma (in remission) History of Any Multi-Drug Resistant Organisms: None Reported Past Surgical History: Hernia Repair Additional Past Surgical History / Comment(s): removal of skin cancer Past Anesthesia/Blood Transfusion Reactions: No Reported Reaction Past Psychological History: No Psychological Hx Reported Smoking Status: Never smoker Past Alcohol Use History: Occasional Past Drug Use History: None Reported - Past Family History Brother(s) Family Medical History: Cancer Additional Family Medical History / Comment(s): Patient has 2 brothers and both have passed one from multiple myeloma and one from multiple problems from obesity. Father Family Medical History: No Reported History Additional Family Medical History / Comment(s): Father was healthy and lived to be 95 yrs old. Mother Family Medical History: Vascular Disorder Additional Family Medical History / Comment(s): Mother at the age of 74 yrs from a ruptured aortic aneurysm. Son(s) Additional Family Medical History / Comment(s): Patient has 2 sons with no major medical problems. Patient doesn't have any sisters. Medications and Allergies Home Medications Medication Instructions Recorded Confirmed Type RX: ALPRAZolam [Xanax] 0.25 mg PO TID PRN 01/12/14 04/20/19 History RX: Meloxicam 7.5 mg PO DAILY 01/12/14 04/20/19 History RX: Albuterol Inhaler [Ventolin 1 - 2 puff INHALATION RT-QID PRN 06/24/17 04/20/19 History Hfa Inhaler] RX: Budesonide/Formoterol Fumarate 2 puff INHALATION RT-BID PRN 06/24/17 04/20/19 History [Symbicort 160-4.5 Mcg Inhaler] RX: Glucosam/Amador-Msm1/C/Julio/Bosw 1 tab PO DAILY 06/24/17 04/20/19 History [Glucosamine-Chondroitin Tablet] Gentle Iron 28 1 cap PO DAILY 03/03/19 04/20/19 History Magnesium Gluconate 100mg 100 mg PO DAILY 03/03/19 04/20/19 History RX: Albuterol Nebulized [Ventolin 2.5 mg INHALATION RT-Q6H 03/03/19 04/20/19 History Nebulized] RX: Cholecalciferol [Vitamin D3 1,000 unit PO DAILY 03/03/19 04/20/19 History (25 Mcg = 1000 Iu)] RX: Turmeric Root Extract 500 mg PO DAILY 03/03/19 04/20/19 History [Turmeric] RX: Apixaban [Eliquis] 5 mg PO BID #60 tab 03/05/19 04/20/19 Rx RX: Diltiazem Cd [Cardizem CD] 180 mg PO DAILY #30 cap.er.24h 03/05/19 04/20/19 Rx RX: Flecainide Acetate [Tambocor] 100 mg PO Q12HR #60 tab 03/10/19 04/20/19 Rx Acetaminophen/Diphenhydramine 1 tab PO HS PRN 04/20/19 04/20/19 History [Tylenol PM 500-25mg] Multivitamins, Thera [Multivitamin 1 tab PO DAILY 04/20/19 04/20/19 History (formulary)] Allergies Allergy/AdvReac Type Severity Reaction Status Date / Time Penicillins Allergy Severe Rash/Hives Verified 04/20/19 11:18 benzonatate AdvReac Dyspnea Verified 04/20/19 11:18 [From Harper Yanez] Physical Exam Vitals: Vital Signs Temp Pulse Pulse Resp BP BP Pulse Ox 04/21/19 11:51 97.5 F L 83 17 98/69 95 04/21/19 04:29 97.9 F 104 H 18 107/68 95 04/20/19 20:48 98.4 F 74 17 101/61 94 L 04/20/19 18:13 84 18 101/74 98 04/20/19 17:04 77 18 110/71 98 Intake and Output 04/21/19 04/21/19 04/21/19 06:59 14:59 22:59 Intake Total 120 900 Balance 120 900 Intake: Oral 120 900 Other: # Voids 1 Results 04/21/19 07:48 04/21/19 07:48 CBC 04/21/19 Range/Units 07:48 WBC 16.8 H (3.8-10.6) k/uL RBC 4.15 L (4.30-5.90) m/uL Hgb 11.8 L (13.0-17.5) gm/dL Hct 37.5 L (39.0-53.0) % Plt Count 400 (150-450) k/uL Comprehensive Metabolic Panel 04/21/19 Range/Units 07:48 Sodium 136 L (137-145) mmol/L Potassium 4.3 (3.5-5.1) mmol/L Chloride 99 (98-107) mmol/L Carbon Dioxide 25 (22-30) mmol/L BUN 19 (9-20) mg/dL Creatinine 1.02 (0.66-1.25) mg/dL Glucose 133 H (74-99) mg/dL Calcium 8.8 (8.4-10.2) mg/dL Current Medications Generic Name Dose Route Start Last Admin Trade Name Freq PRN Reason Stop Dose Admin Acetaminophen 500 mg 04/20/19 21:00 Tylenol Tab PO HS PRN Pain OR SLEEP Albuterol Sulfate 2.5 mg 04/20/19 20:13 Ventolin Nebulized INHALATION RT-QID PRN Wheezing Alprazolam 0.25 mg 04/20/19 20:13 Xanax PO TID PRN Anxiety Apixaban 5 mg 04/20/19 21:00 04/21/19 09:18 Eliquis PO 5 mg BID GREYSON Administration Budesonide/Formoterol Fumarate 2 puff 04/21/19 08:00 04/21/19 07:48 Symbicort 160-4.5 Mcg Inhaler INHALATION Not Given RT-BID PENDING SALE TO [facility] Cholecalciferol 1,000 unit 04/21/19 09:00 04/21/19 09:17 Vitamin D3 (25 Mcg = 1000 Iu) PO 1,000 unit DAILY GREYSON Administration Diltiazem HCl 180 mg 04/21/19 09:00 04/21/19 09:17 Cardizem Cd PO 180 mg DAILY GREYSON Administration Diphenhydramine HCl 25 mg 04/20/19 21:00 Benadryl PO HS PRN Pain OR SLEEP Ferrous Sulfate 325 mg 04/21/19 09:00 04/21/19 09:17 Feosol PO 325 mg DAILY GREYSON Administration Flecainide Acetate 100 mg 04/20/19 21:00 04/21/19 09:17 Tambocor PO 100 mg Q12HR GREYSON Administration Multivitamins 1 each 04/21/19 09:00 04/21/19 09:17 Theragran PO 1 each DAILY PENDING SALE TO [facility] Administration Non-Formulary Medication 1 tab 04/21/19 09:00 04/21/19 10:21 Glucosam/Amador-Msm1/C/Julio/Bosw [Glucosamine-Chondroitin Tablet] PO Not Given DAILY PENDING SALE TO [facility] Non-Formulary Medication 100 mg 04/21/19 09:00 04/21/19 10:22 Magnesium Gluconate 100mg PO Not Given DAILY PENDING SALE TO [facility] Nystatin 500,000 unit 04/20/19 22:00 04/21/19 12:45 Mycostatin Oral Susp PO Not Given QID PENDING SALE TO [facility] Intake and Output 04/21/19 04/21/19 04/21/19 06:59 14:59 22:59 Intake Total 120 900 Balance 120 900 Intake: Oral 120 900 Other: # Voids 1 04/21/19 07:48 04/21/19 07:48
--- NOTE | 2019-04-21 15:34 | P.CNPUL ---
History of Present Illness Consult date: 04/21/19 Chief complaint: Night sweats, fatigue, chills History of present illness: 73-year-old white male patient who we have seen in consultation during his previous recent hospitalization admissions for acute bronchitis with reactive bronchospasm and atrial fibrillation with RVR in February. Patient has paroxysmal atrial fibrillation, and is maintained on a combination of Eliquis, Cardizem and flecainide. 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 Patient presented to the emergency department on O2 2019 with complaints of chills and rigors, fatigue, night sweats, pain in his throat, not feeling well. Denied any cough, denied any wheezing, denies any fever, no nausea vomiting or diarrhea. Lab work showed white blood cell count elevated at 24.5, hemoglobin is 12.9, platelet count was 436, sodium was 135, CO2 is 21, creatinine 0.96, pro calcitonin level was 0.15, urinalysis was negative for any signs of infection, patient has not had any urinary complaints, influenza testing was negative, group A strep was negative, chest x-ray was negative for any acute cardiopulmonary process, CT chest angiogram was negative for pulmonary embolism, the lungs are clear and free of infiltrates, no evidence of atelectasis, no pulmonary nodule or mass, no pleural effusion. Patient has been afebrile while in the hospital, room air pulse ox 95%, blood pressure is 98/69, patient is in sinus mechanism. BRUCE holland has been consulted, patient was started on Diflucan, he was given a dose of Levaquin. We are consulted for recent history of tracheobronchitis and shortness of breath and because patient is known to our practice Review of Systems All systems: negative Constitutional: Reports fatigue, Reports malaise, Reports sweats, Reports weakness, Denies chills Eyes: denies blurred vision, denies pain Ears, nose, mouth and throat: Denies headache, Denies sore throat Cardiovascular: Denies chest pain, Denies shortness of breath Respiratory: Denies cough Gastrointestinal: Denies abdominal pain, Denies diarrhea, Denies nausea, Denies vomiting Musculoskeletal: Denies myalgias Integumentary: Denies pruritus, Denies rash Neurological: Denies numbness, Denies weakness Psychiatric: Denies anxiety, Denies depression Endocrine: Denies fatigue, Denies weight change Past Medical History Past Medical History: Atrial Fibrillation, Cancer Additional Past Medical History / Comment(s): mantle lymphoma, basal cell carcinoma (in remission) History of Any Multi-Drug Resistant Organisms: None Reported Past Surgical History: Hernia Repair Additional Past Surgical History / Comment(s): removal of skin cancer Past Anesthesia/Blood Transfusion Reactions: No Reported Reaction Past Psychological History: No Psychological Hx Reported Smoking Status: Never smoker Past Alcohol Use History: Occasional Past Drug Use History: None Reported - Past Family History Brother(s) Family Medical History: Cancer Additional Family Medical History / Comment(s): Patient has 2 brothers and both have passed one from multiple myeloma and one from multiple problems from obesity. Father Family Medical History: No Reported History Additional Family Medical History / Comment(s): Father was healthy and lived to be 95 yrs old. Mother Family Medical History: Vascular Disorder Additional Family Medical History / Comment(s): Mother at the age of 74 yrs from a ruptured aortic aneurysm. Son(s) Additional Family Medical History / Comment(s): Patient has 2 sons with no major medical problems. Patient doesn't have any sisters. Medications and Allergies Home Medications Medication Instructions Recorded Confirmed Type ALPRAZolam [Xanax] 0.25 mg PO TID PRN 01/12/14 04/20/19 History Meloxicam 7.5 mg PO DAILY 01/12/14 04/20/19 History Albuterol Inhaler [Ventolin Hfa 1 - 2 puff INHALATION RT-QID PRN 06/24/17 04/20/19 History Inhaler] Budesonide/Formoterol Fumarate 2 puff INHALATION RT-BID PRN 06/24/17 04/20/19 History [Symbicort 160-4.5 Mcg Inhaler] Glucosam/Amador-Msm1/C/Julio/Bosw 1 tab PO DAILY 06/24/17 04/20/19 History [Glucosamine-Chondroitin Tablet] Albuterol Nebulized [Ventolin 2.5 mg INHALATION RT-Q6H 03/03/19 04/20/19 History Nebulized] Cholecalciferol [Vitamin D3 (25 1,000 unit PO DAILY 03/03/19 04/20/19 History Mcg = 1000 Iu)] Gentle Iron 28 1 cap PO DAILY 03/03/19 04/20/19 History Magnesium Gluconate 100mg 100 mg PO DAILY 03/03/19 04/20/19 History Turmeric Root Extract [Turmeric] 500 mg PO DAILY 03/03/19 04/20/19 History Apixaban [Eliquis] 5 mg PO BID #60 tab 03/05/19 04/20/19 Rx Diltiazem Cd [Cardizem CD] 180 mg PO DAILY #30 cap.er.24h 03/05/19 04/20/19 Rx Flecainide Acetate [Tambocor] 100 mg PO Q12HR #60 tab 03/10/19 04/20/19 Rx Acetaminophen/Diphenhydramine 1 tab PO HS PRN 04/20/19 04/20/19 History [Tylenol PM 500-25mg] Multivitamins, Thera [Multivitamin 1 tab PO DAILY 04/20/19 04/20/19 History (formulary)] Allergies Allergy/AdvReac Type Severity Reaction Status Date / Time Penicillins Allergy Severe Rash/Hives Verified 04/20/19 11:18 benzonatate AdvReac Dyspnea Verified 04/20/19 11:18 [From Harper Yanez] Physical Exam Vitals: Vital Signs Temp Pulse Pulse Resp BP BP Pulse Ox 04/21/19 11:51 97.5 F L 83 17 98/69 95 04/21/19 04:29 97.9 F 104 H 18 107/68 95 04/20/19 20:48 98.4 F 74 17 101/61 94 L 04/20/19 18:13 84 18 101/74 98 04/20/19 17:04 77 18 110/71 98 Intake and Output 04/21/19 04/21/19 04/21/19 06:59 14:59 22:59 Intake Total 120 900 Balance 120 900 Intake: Oral 120 900 Other: # Voids 1 GENERAL EXAM: Alert, very pleasant, 73-year-old white male, on room air, with a pulse ox of 95%, comfortable in no apparent distress. HEAD: Normocephalic/atraumatic. EYES: Normal reaction of pupils, equal size. Conjunctiva pink, sclera white. NOSE: Clear with pink turbinates. THROAT: No erythema or exudates. NECK: No masses, no JVD, no thyroid enlargement, no adenopathy. CHEST: No chest wall deformity. Symmetrical expansion. LUNGS: Equal air entry with no crackles, wheeze, rhonchi or dullness. CVS: Regular rate and rhythm, normal S1 and S2, no gallops, no murmurs, no rubs ABDOMEN: Soft, nontender. No hepatosplenomegaly, normal bowel sounds, no guarding or rigidity. EXTREMITIES: No clubbing, no edema, no cyanosis, 2+ pulses and upper and lower extremities. MUSCULOSKELETAL: Muscle strength and tone normal. SPINE: No scoliosis or deformity SKIN: No rashes CENTRAL NERVOUS SYSTEM: Alert and oriented -3. No focal deficits, tone is normal in all 4 extremities. PSYCHIATRIC: Alert and oriented -3. Appropriate affect. Intact judgment and insight. Results - Laboratory Findings CBC and BMP: 04/21/19 07:48 04/21/19 07:48 PT/INR, D-dimer PT 9.9 sec (9.0-12.0) 04/20/19 11:38 INR 1.0 (<1.2) 04/20/19 11:38 D-Dimer 2.12 mg/L FEU (<0.60) H 04/20/19 11:38 Abnormal lab findings: Abnormal Labs 04/20/19 04/20/19 04/20/19 11:38 11:38 11:38 WBC 24.5 H RBC Hgb 12.9 L Hct Neutrophils # 21.9 H D-Dimer 2.12 H Sodium 135 L Carbon Dioxide 21 L Glucose 118 H ALT 63 H Alkaline Phosphatase 271 H C-Reactive Protein Procalcitonin 04/20/19 04/21/19 04/21/19 11:38 07:48 07:48 WBC 16.8 H RBC 4.15 L Hgb 11.8 L Hct 37.5 L Neutrophils # 14.3 H D-Dimer Sodium 136 L Carbon Dioxide Glucose 133 H ALT Alkaline Phosphatase C-Reactive Protein 77.2 H Procalcitonin 0.15 H - Diagnostic Findings Chest x-ray: report reviewed, image reviewed CT scan - chest: report reviewed, image reviewed Assessment and Plan Plan: Assessment: #1. Nonspecific constitutional symptoms with chills, fatigue, weakness, and sore throat, rule out infectious process #2. Leukocytosis, blood cultures have been ordered and are pending at this time. With no clear source of infection at this time, chest x-ray and CT angios chest did not show any acute pulmonary process, urinalysis was clear, group A strep is negative. Procalcitonin is mildly elevated to 0.15, and CRP is at 77.2 #3. Elevated d-dimer, CT angios did not show evidence of pulmonary embolism #4. Paroxysmal atrial fibrillation, maintained on flecainide, Eliquis and Cardizem, currently in sinus mechanism #5. Recent hospitalization for tracheobronchitis in February 26 #6. Lifetime nonsmoker #7. History of mantle cell lymphoma, status post bone marrow transplantation #8. History of basal cell carcinoma #9. Straight of melanoma #10. Remote history of pancreatitis Plan: Chest x-ray and CT chest did not show any acute pulmonary process, we will order blood cultures. Antibiotics per ID service recommendations, no clear source of infection at this time, CT of abdomen and pelvis has been ordered and is pending at this time. Continue with IV hydration, continue supportive treatment, will await results of blood cultures, and the workup ordered by ID service and hematology. Patient has no pulmonary complaints at this time. From pulmonary perspective he can be considered for discharge home in the next 24 hours if she continues to improve I performed a history & physical examination of the patient and discussed their management with my nurse practitioner, Odilia Linder. I reviewed the nurse practitioner's note and agree with the documented findings and plan of care. Lung sounds are positive for dementia breath sounds The findings and the impression was discussed with the patient. I attest to the documentation by the nurse practitioner. Time with Patient: Greater than 30
[2019-04-21] MEDS ORDERED: ANIDULAFUNGIN 200 MG in SODIUM CHLORIDE 0.9% 200 ML IVPB ONE (16:14)
--- NOTE | 2019-04-21 16:27 | CT ---
EXAMINATION TYPE: CT abdomen pelvis w con DATE OF EXAM: 04/21/2019 COMPARISON: 10/26/2017 HISTORY: 73-year-old male Leukocytosis, hx mantle cell lymphoma TECHNIQUE: Contiguous axial scanning of the abdomen and pelvis following administration of 100 ml Iso alfonso 300 IV contrast. Delayed images through the kidneys and coronal/sagittal reconstructions perform ed. CT DLP: 1415 mGycm Automated exposure control for dose reduction was used. FINDINGS: LUNG BASES: Strandy atelectasis left base. LIVER/GB: Stable 1.4 cm cyst left hepatic dome. No biliary ductal dilatation. Portal venous system is patent. Some layering calculi in the gallbladder. No abnormal gallbladder distention. PANCREAS: Mildly atrophic. SPLEEN: No significant abnormality is seen. ADRENALS: No significant abnormality is seen. KIDNEYS: Scattered cysts measuring up to 4.9 cm. Symmetric uptake and excretion of contrast from the kidneys LYMPH NODES: No mesenteric or retroperitoneal lymphadenopathy. Mild atherosclerotic calcifications in frarenal abdominal aorta and iliac arteries. Mild ectasia right common iliac artery 1.6 cm. REPRODUCTIVE ORGANS: Prostate gland 4.4 cm wide. Pelvic phlebolith. Bladder partially distended. No a bnormal fluid collection in the pelvis or pelvic lymphadenopathy. BOWEL: Moderate stool burden. No pericolonic inflammation or abnormal bowel wall thickening. No dila eric small bowel, free fluid, or free air. Bones: Degenerative changes at the hips and right SI joint. Sclerotic foci within the left iliac bone are unchanged from 10/26/2017. Moderate degenerative disc disease throughout the lumbar spine. Grade 1 retrolisthesis at L2-L3 and L3-L4. Hypertrophic facet arthropathy. IMPRESSION: 1. MINIMAL CHOLELITHIASIS. NO CT EVIDENCE FOR ACUTE CHOLECYSTITIS. 2. MODERATE STOOL BURDEN. 3. NO ACUTE INFLAMMATORY PROCESS IDENTIFIED IN THE ABDOMEN OR PELVIS TO EXTEND THE PATIENT'S SYMPTOMS .
--- NOTE | 2019-04-21 16:53 | PN ---
PROGRESS NOTE DATE OF SERVICE: 04/21/2019 REASON FOR FOLLOWUP: Leukocytosis ,oropharyngeal candidiasis. INTERVAL HISTORY: The patient is currently afebrile. He is feeling better today, breathing comfortably. The patient's pain to the throat area has slightly decreased in intensity. Denies any chest pain. No abdominal pain and no diarrhea. PHYSICAL EXAMINATION: Blood pressure 98/69 with a pulse of 83, temperature 97.5. He is 95% on room air. General description is an elderly male up in the bed in no distress. RESPIRATORY SYSTEM: Unlabored breathing with decreased breath sounds at the base. No wheeze. HEART: S1, S2. Regular rate and rhythm. ABDOMEN: Soft. No tenderness. LABS: Hemoglobin is 11.8, white count down to 16.8. Creatinine is 1.02. UA has been negative. DIAGNOSTIC IMPRESSION AND PLAN: Patient with leukocytosis and throat pain with likely oropharyngeal candidiasis. The patient's white count did show a downward trend. Currently on nystatin swish and swallow. As the patient is on Tambocor, that will interact with the Diflucan. Recommend Eraxis while inpatient unless Tambocor can be switched or held. Discussed further with the admitting physician. Continue supportive care. MMODL / IJN: [id number] / MORGAN
[2019-04-22 05:38] VITALS: RESP 16; TEMP 97.6
[2019-04-22] MEDS: CHOLECALCIFEROL 1,000 UNIT TAB PO SCH (07:25)
[2019-04-22] MEDS: MULTIVITAMINS, THERA 1 EACH TAB PO SCH (07:25)
[2019-04-22] MEDS: FERROUS SULFATE 325 MG TAB PO SCH (07:25)
[2019-04-22] MEDS: DILTIAZEM CD 180 MG CAP.ER.24H PO SCH (07:26)
[2019-04-22] MEDS: APIXABAN 5 MG TAB PO SCH (07:26)
[2019-04-22] MEDS: FLECAINIDE 50 MG TAB PO SCH (07:26)
[2019-04-22] MEDS: NYSTATIN 100,000 UNIT/ML SUSP 500,000 UNIT/5 ML CUP PO SCH (07:27)
[2019-04-22] MEDS: MAGNESIUM GLUCONATE PO SCH (07:27)
[2019-04-22] MEDS: NON FORMULARY DRUG (Glucosam/Chon-Msm1/C/Mang/Bosw [Glucosamine-Chondroitin Tablet] 1 TAB) PO SCH (07:27)
[2019-04-22 08:11] VITALS: BP 114/75
[2019-04-22 08:16] VITALS: PULSE 71
[2019-04-22] MEDS: SYMBICORT 160-4.5 MCG INHALER INHALATION SCH (08:29)
[2019-04-22] MEDS ORDERED: ANIDULAFUNGIN 100 MG in SODIUM CHLORIDE 0.9% 100 ML IVPB SCH (09:00)
[2019-04-22] MEDS ORDERED: MAGNESIUM HYDROXIDE 2,400 MG/10 ML CUP PO SCH (09:00)
[2019-04-22 09:07] LABS: Basophils % (A) 0 %; Eosinophils # (A) 0.2 k/uL (0-0.7); Eosinophils % (A) 1 %; HCT 36.4 % (39.0-53.0); Lymphocytes # (A) 1.4 k/uL (1.0-4.8); Lymphocytes % (A) 9 %; MCH 29.8 pg (25.0-35.0); MCV 90.1 fL (80.0-100.0); Mean Platelet Volume 8.7; Monocytes # (A) 0.6 k/uL (0-1.0); Monocytes % (A) 4 %; Neutrophils % (A) 84 %; Platelet Count 400 k/uL (150-450); RBC 4.04 m/uL (4.30-5.90); RDW 13.6 % (11.5-15.5); WBC 15.4 k/uL (3.8-10.6)
--- NOTE | 2019-04-22 11:45 | P.PN ---
Subjective Progress Note Date: 04/22/19 Principal diagnosis: shortness of breath, fatigue In follow-up today patient's breathing is somewhat better than on admission, fatigue is stable, not progressive, no fevers, cough, abdominal pain, acute changes in bowel habits. He denies any bleeding or swelling Objective - Vital Signs Vital signs: Vital Signs Temp 97.6 F 04/22/19 08:09 Pulse 71 04/22/19 08:15 Resp 16 04/22/19 08:09 BP 114/75 04/22/19 08:09 Pulse Ox 95 04/22/19 08:09 Intake & Output 04/21/19 04/22/19 04/22/19 18:59 06:59 18:59 Intake Total 900 1430 Balance 900 1430 Intake: Oral 900 1430 Other: Voiding Method Toilet # Voids 2 - Exam Well-developed, adequately nourished, no acute distress, alert and oriented 4, normocephalic, atraumatic, anicteric sclera, respirations are even and unlabored, skin is warm and dry to the touch, independently ambulatory, trace swelling in the lower extremities - Integumentary Integumentary: Present: normal, normal turgor - Neurologic Neurologic: Present: CNII-XII intact - Musculoskeletal Musculoskeletal: Present: strength equal bilaterally - Psychiatric Psychiatric: Present: A&O x's 3, appropriate affect, intact judgment & insight - Allied health notes Allied health notes reviewed: nursing - Labs CBC & Chem 7: 04/22/19 08:28 04/21/19 07:48 Labs: Abnormal Lab Results - Last 24 Hours (Table) 04/22/19 Range/Units 08:28 WBC 15.4 H (3.8-10.6) k/uL RBC 4.04 L (4.30-5.90) m/uL Hgb 12.0 L (13.0-17.5) gm/dL Hct 36.4 L (39.0-53.0) % Neutrophils # 13.0 H (1.3-7.7) k/uL Microbiology - Last 24 Hours (Table) 04/20/19 13:15 Group A Strep Throat Culture - Final Throat - Imaging and Cardiology CT scan - abdomen: report reviewed CT scan - pelvis: report reviewed Assessment and Plan (1) Leukocytosis Narrative/Plan: Differential WBC increase noted to be neutrophilia. Suspect recent hospitalizations and steroid use as a potential cause. CT of the abdomen and pelvis ordered due to history of mantle cell lymphoma. No evidence of adenopathy. CBC and differential stable today. CRP elevated, c/w inflammation Will get a f/u with Dr. Gan in 3-4 weeks to re-evaluate pt CBC and diff. Further work up as appropriate Current Visit: Yes Status: Acute Priority: High Code(s): D72.829 - ELEVATED WHITE BLOOD CELL COUNT, UNSPECIFIED SNOMED Code(s): 951369435 (2) Dyspnea Current Visit: Yes Status: Acute Priority: High Code(s): R06.00 - DYSPNEA, UNSPECIFIED SNOMED Code(s): 936027387 (3) Fatigue Current Visit: Yes Status: Acute Priority: High Code(s): R53.83 - OTHER FATIGUE SNOMED Code(s): 83454661
--- NOTE | 2019-04-22 12:02 | P.DS ---
Providers Date of admission: 04/20/19 15:59 Expected date of discharge: 04/22/19 Attending physician: Deyvi Nuñez Consults: 04/20/19 15:59 Consult Physician Urgent Consulting Provider: [facility] Consult Reason/Comments: Fatigue, night sweats, dyspnea Do you want consulting provider notified?: Yes Consult Physician Urgent Consulting Provider: Chris Gan Consult Reason/Comments: Leukocytosis Do you want consulting provider notified?: Yes Consult Physician Urgent Consulting Provider: Brandy Coon Consult Reason/Comments: Leukocytosis Do you want consulting provider notified?: Yes 04/21/19 11:35 Consult Physician Routine Consulting Provider: Rena Lipscomb Consult Reason/Comments: recent pneumonia, SOB Do you want consulting provider notified?: Yes Primary care physician: [facility] Course: This patient is 73-year-old male patient of Dr. Meza and Dr. 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 The patient gives history that he has had difficulty tolerating the Lopressor in the past. He has recently been treated for bronchitis. He had a hospitalization at which he was treated for sinus tachycardia and started on flecainide and also treated for reactive bronchospasm and wheezing with possible underlying chronic asthmatic bronchitis. Patient complains of night sweats that are severe the been going on for the last few weeks along with having an episode of right upper chest pain, extreme fatigue especially with exertion. He complains of shortness of breath with exertion. Complains of throat pain especially with swallowing or coughing. Patient is on nebulizer treatments at home without improvement. No fever, no cough. Chest pain is in the upper anterior chest area. He denies any chest pain for now. He has also been having sore throat since his admission and February. Patient has had decreased appetite for the past 4 days which his believes is related to the sore throat with possibly some minimal weight loss. He denies any recent steroid use. Patient and his are planning to leave for [place] either on Saturday or Saturday. Plan is to complete current testing, follow-up in the office prior to trip to [place]. Patient was brought into [facility] emergency center. He was found to be afebrile, heart rate 89, blood pressure 106/69, pulse ox 97% on room air. WBC 24.5, hemoglobin 12.9, platelet count 436. Sodium 135,, CO2 21, creatinine 0.96, blood sugar 118. Total bilirubin 0.8, AST 45, ALT 63, alkaline phosphatase 271. Pro-calcitonin 0.15. TSH 1.560 and free T4 normal. Urinalysis clear with nitrate and leukoesterase negative. Influenza testing negative. Group A strep negative. Chest x-ray negative for acute cardiopulmonary disease. CT chest angiogram negative for pulmonary embolism. Patient admitted to the [facility] floor. Patient has been seen by Dr. Coon and added nystatin swish and swallow along with Diflucan 1, check inflammatory markers. Recommend bone marrow biopsy for possible recurrence of his hematological malignancy. No obvious medical focus of infection to account for night sweats and leukocytosis. There is a consult in place for cardiology and oncology. Oncology has advised for ultrasound of the right lower extremity which is negative for DVT and CAT scan of the abdomen and pelvis with contrast. 04/22: CAT scan of the abdomen and pelvis revealed minimal cholelithiasis. No evidence of acute cholecystitis. Moderate stool burden. No acute inflammatory process identified in the abdomen or pelvis. Patient has been seen by cardiology. No arrhythmias noted. May consider decreasing Cardizem 220 mg daily and can be done by Dr. Panda. Patient does have an appointment with him on Saturday. Patient was seen by him in medicine and patient is cleared for discharge home. Patient has been seen by oncology with plan to follow-up with Dr. Gan in 3-4 weeks to reevaluate CBC. Patient received 1 dose of anidulafungin and had a severe immediate reaction was discontinued. We will plan to discharge the patient on a course of nystatin. Patient states he continues to have no energy and fatigue with a slight sore throat. Discharge diagnoses: 1. Fatigue, night sweats, chills, rigors, sore throat and leukocytosis of unclear etiology. 2. Paroxysmal atrial fibrillation, currently in a sinus rhythm. 3. Mantle cell lymphoma status post bone marrow transplantation, stable. 4. History of basal cell carcinoma. Discharge plan: home Impression and plan of care have been directed as dictated by the signing physician. Gianna Silver nurse practitioner acting as scribe for signing physician. Patient Condition at Discharge: Good Plan - Discharge Summary New Discharge Prescriptions: New Nystatin 100,000 Unit/ml Susp [Mycostatin Oral Susp] 500,000 unit PO QID #100 ml Continue Meloxicam 7.5 mg PO DAILY ALPRAZolam [Xanax] 0.25 mg PO TID PRN PRN Reason: Anxiety Budesonide/Formoterol Fumarate [Symbicort 160-4.5 Mcg Inhaler] 2 puff INHALATION RT-BID PRN PRN Reason: Dyspnea Albuterol Inhaler [Ventolin Hfa Inhaler] 1 - 2 puff INHALATION RT-QID PRN PRN Reason: Wheezing Glucosam/Amador-Msm1/C/Julio/Bosw [Glucosamine-Chondroitin Tablet] 1 tab PO DAILY Gentle Iron 28 1 cap PO DAILY Magnesium Gluconate 100mg 100 mg PO DAILY Turmeric Root Extract [Turmeric] 500 mg PO DAILY Cholecalciferol [Vitamin D3 (25 Mcg = 1000 Iu)] 1,000 unit PO DAILY Albuterol Nebulized [Ventolin Nebulized] 2.5 mg INHALATION RT-Q6H Diltiazem Cd [Cardizem CD] 180 mg PO DAILY #30 cap.er.24h Apixaban [Eliquis] 5 mg PO BID #60 tab Flecainide Acetate [Tambocor] 100 mg PO Q12HR #60 tab Multivitamins, Thera [Multivitamin (formulary)] 1 tab PO DAILY Acetaminophen/Diphenhydramine [Tylenol PM 500-25mg] 1 tab PO HS PRN PRN Reason: Pain OR SLEEP Discharge Medication List ALPRAZolam [Xanax] 0.25 mg PO TID PRN 01/12/14 [History] Meloxicam 7.5 mg PO DAILY 01/12/14 [History] Albuterol Inhaler [Ventolin Hfa Inhaler] 1 - 2 puff INHALATION RT-QID PRN 06/24/17 [History] Budesonide/Formoterol Fumarate [Symbicort 160-4.5 Mcg Inhaler] 2 puff INHALATION RT-BID PRN 06/24/17 [History] Glucosam/Amador-Msm1/C/Julio/Bosw [Glucosamine-Chondroitin Tablet] 1 tab PO DAILY 06/24/17 [History] Albuterol Nebulized [Ventolin Nebulized] 2.5 mg INHALATION RT-Q6H 03/03/19 [History] Cholecalciferol [Vitamin D3 (25 Mcg = 1000 Iu)] 1,000 unit PO DAILY 03/03/19 [History] Gentle Iron 28 1 cap PO DAILY 03/03/19 [History] Magnesium Gluconate 100mg 100 mg PO DAILY 03/03/19 [History] Turmeric Root Extract [Turmeric] 500 mg PO DAILY 03/03/19 [History] Apixaban [Eliquis] 5 mg PO BID #60 tab 03/05/19 [Rx] Diltiazem Cd [Cardizem CD] 180 mg PO DAILY #30 cap.er.24h 03/05/19 [Rx] Flecainide Acetate [Tambocor] 100 mg PO Q12HR #60 tab 03/10/19 [Rx] Acetaminophen/Diphenhydramine [Tylenol PM 500-25mg] 1 tab PO HS PRN 04/20/19 [History] Multivitamins, Thera [Multivitamin (formulary)] 1 tab PO DAILY 04/20/19 [History] Nystatin 100,000 Unit/ml Susp [Mycostatin Oral Susp] 500,000 unit PO QID #100 ml 04/22/19 [Rx] Follow up Appointment(s)/Referral(s): Vidhi Panda MD [STAFF PHYSICIAN] - 2 Weeks (has appointment Saturday) Hemanth Meza MD [Primary Care Provider] - 2 Weeks (Office will be calling upon discharge to set up a follow up appointment) Chris Gan MD [STAFF PHYSICIAN] - 07/06/19 11:30 am Patient Instructions/Handouts: Nystatin (By mouth), Leukocytosis (DC), Dyspnea (DC), Fatigue (DC) Discharge Disposition: HOME SELF-CARE
--- NOTE | 2019-04-22 12:17 | P.PN ---
Progress Note - Text Progress Note Date: 04/22/19 DATE OF SERVICE: 04/21/2019 REASON FOR FOLLOWUP: Leukocytosis ,oropharyngeal candidiasis. INTERVAL HISTORY: The patient remains to be afebrile. He is feeling better today, breathing comfortably.The patient's still complaining of pain to the throat area that has decreased in intensity patient seemed to have problem with IV Eraxis administration yesterday the patient developed flushing but no rash no itching no tongue swelling PHYSICAL EXAMINATION: Blood pressure 140/75 with a pulse of 87, temperature 97.5. He is 95% on room air. General description is an elderly male up in the bed in no distress. RESPIRATORY SYSTEM: Unlabored breathing with decreased breath sounds at the base. No wheeze. HEART: S1, S2. Regular rate and rhythm. ABDOMEN: Soft. No tenderness. LABS: Hemoglobin is 11.8, white count down to 15.4 DIAGNOSTIC IMPRESSION AND PLAN: Patient with leukocytosis and throat pain with likely oropharyngeal candidiasis. The patient's white count did show a downward trend. Currently on nystatin swish and swallow. Patient cannot take Diflucan because of drug interaction and did not respond very well to the IV Eraxis yesterday may consider continuing on nystatin swish and swallow for 2 weeks and close outpatient follow-up.
--- NOTE | 2019-04-22 12:44 | P.PN ---
Subjective Progress Note Date: 04/22/19 Principal diagnosis: Multiple nonspecific constitutional symptoms with chills fatigue weakness and sore throat. Exact etiology, not clear. 73-year-old white male patient who we have seen in consultation during his previous recent hospitalization admissions for acute bronchitis with reactive bronchospasm and atrial fibrillation with RVR in February. Patient has paroxysmal atrial fibrillation, and is maintained on a combination of Eliquis, Cardizem and flecainide. 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 Patient presented to the [facility] department on 2019 with complaints of chills and rigors, fatigue, night sweats, pain in his throat, not feeling well. Denied any cough, denied any wheezing, denies any fever, no nausea vomiting or diarrhea. Lab work showed white blood cell count elevated at 24.5, hemoglobin is 12.9, platelet count was 436, sodium was 135, CO2 is 21, creatinine 0.96, pro calcitonin level was 0.15, urinalysis was negative for any signs of infection, patient has not had any urinary complaints, influenza testing was negative, group A strep was negative, chest x-ray was negative for any acute cardiopulmonary process, CT chest angiogram was negative for pulmonary embolism, the lungs are clear and free of infiltrates, no evidence of atelectasis, no pulmonary nodule or mass, no pleural effusion. Patient has been afebrile while in the hospital, room air pulse ox 95%, blood pressure is 98/69, patient is in sinus mechanism. ID service has been consulted, patient was started on Diflucan, he was given a dose of Levaquin. We are consulted for recent history of tracheobronchitis and shortness of breath and because patient is known to our practice Reevaluated today on 04/22/19, patient feels somewhat better, continues to have fatigue, no fever, no cough, no shortness of breath, no abdominal pain. Workup so far since admission has been basically nondiagnostic. Objective - Vital Signs Vital signs: Vital Signs Temp 97.6 F 04/22/19 08:09 Pulse 71 04/22/19 08:15 Resp 16 04/22/19 08:09 BP 114/75 04/22/19 08:09 Pulse Ox 95 04/22/19 08:09 Intake & Output 04/21/19 04/22/19 04/22/19 18:59 06:59 18:59 Intake Total 900 1430 Balance 900 1430 Intake: Oral 900 1430 Other: Voiding Method Toilet # Voids 2 - Exam GENERAL EXAM: Revealed a 73-year-old white male very pleasant in no distress.. HEENT: PERRLA, EOMI, no icterus, throat is clear, no neck masses, no JVD, no stridor. CHEST: No chest wall deformity. Symmetrical expansion. LUNGS: Equal air entry with no crackles, wheeze, rhonchi or dullness. CVS: Regular rate and rhythm, normal S1 and S2, no gallops, no murmurs, no rubs ABDOMEN: Soft, nontender. No hepatosplenomegaly, normal bowel sounds, no guarding or rigidity. EXTREMITIES: No clubbing, no edema, no cyanosis, 2+ pulses and upper and lower extremities. MUSCULOSKELETAL: Muscle strength and tone normal. SPINE: No scoliosis or deformity SKIN: No rashes CENTRAL NERVOUS SYSTEM: No gross focal neurologic deficit. PSYCHIATRIC: Normal mood, affect and normal mental status examination - Labs CBC & Chem 7: 04/22/19 08:28 04/21/19 07:48 Labs: Abnormal Lab Results - Last 24 Hours (Table) 04/22/19 Range/Units 08:28 WBC 15.4 H (3.8-10.6) k/uL RBC 4.04 L (4.30-5.90) m/uL Hgb 12.0 L (13.0-17.5) gm/dL Hct 36.4 L (39.0-53.0) % Neutrophils # 13.0 H (1.3-7.7) k/uL Microbiology - Last 24 Hours (Table) 04/20/19 13:15 Group A Strep Throat Culture - Final Throat Assessment and Plan Assessment: #1. Nonspecific constitutional symptoms with chills, fatigue, weakness, and sore throat, rule out infectious process #2. Leukocytosis, blood cultures have been ordered and are pending at this time. With no clear source of infection at this time, chest x-ray and CT angios chest did not show any acute pulmonary process, urinalysis was clear, group A strep is negative. Procalcitonin is mildly elevated to 0.15, and CRP is at 77.2 #3. Elevated d-dimer, CT angios did not show evidence of pulmonary embolism #4. Paroxysmal atrial fibrillation, maintained on flecainide, Eliquis and Cardizem, currently in sinus mechanism #5. Recent hospitalization for tracheobronchitis in February 26 #6. Lifetime nonsmoker #7. History of mantle cell lymphoma, status post bone marrow transplantation #8. History of basal cell carcinoma #9. Straight of melanoma #10. Remote history of pancreatitis Recommendation: Discussed with the patient his workup so far, no specific findings to explain his symptoms, this could very well be a viral illness, suggest discharging the patient home and follow up on outpatient basis. If cleared by different consultants including infectious disease and hematology on the case. Time with Patient: Less than 30
--- NOTE | 2019-04-24 10:55 | CDI ---
Documentation Clarification Form Date: 04/24/2019 10:37:25 AM From: Emely Sierra Phone: If you have a question about this query, please contact Gema Hernandez [employer] Stock Clerk at [phone] between 8am and 5pm. Admit Date: 04/20/2019 03:59:00 PM Patient Name: Sreedhar Jackson Visit Number: [id number] Discharge Date: 04/22/2019 11:35:00 AM ATTENTION: The Clinical Documentation Specialists (CDI) and [facility] Coding Staff appreciate your assistance in clarifying documentation. Please respond to the clarification below the line at the bottom and electronically sign. The CDI & [facility] Coding staff will review the response and follow-up if needed. Please note: Queries are made part of the Legal Health Record. If you have any questions, please contact the author of this message via ITS. Dr. Hemanth Meza The patients principal diagnosis has not been clearly identified and requires clarification. Patient with fatigue, night sweats, chills, rigors, sore throat, leukocytosis. ID documents Oropharyngeal candidiasis. Nystatin swish ordered and Diflucan. Please clarify if patient had oropharygeal candidiasis causing any of symptoms. He/She presented with the following fatigue, night sweats, chills, rigors, sore throat leukocytosis. History/Risk factors: Mantle Cell lymphoma status post bone [place] transplant, recent bronchitis Lab findings: WBCs 24.5 Radiology findings: simple cyst hepatic lobe, cyst kidney and minimual cholelithasis no cardiopulmonary process Vital Signs:98.7 F, 89, 106/69, 97% RA Treatment: Nystantin swish Diflucan Consults: ID oncology pulmonary In your professional opinion, can you please clarify which diagnosis, after study, accounted for the patients presenting symptoms and was the reason chiefly responsible for the admission? Oropharyngeal candidiasis Mantle Cell Lymphoma Other Unable to determine unclear etiology MTDD
== END 2019-04-22 11:35 | disposition home or self-care (01) ==
LOC: EC 11:16 → 5NMEDONC 15:59 → INTOOBSV 15:59 → 5NMEDONC 18:02 → UNDODISIN 04-22 11:35
PROVIDERS: ADMIT Internal Medicine; ATTEND Internal Medicine
DX: B37.0 Candidal stomatitis (principal); R07.0 Pain in throat; R53.83 Other fatigue; M19.90 Unspecified osteoarthritis, unspecified site; R07.9 Chest pain, unspecified; D72.829 Elevated white blood cell count, unspecified; E66.9 Obesity, unspecified; Z68.27 Body mass index [BMI] 27.0-27.9, adult; I10 Essential (primary) hypertension; Z85.72 Personal history of non-Hodgkin lymphomas; Z85.828 Personal history of other malignant neoplasm of skin; Z87.19 Personal history of other diseases of the digestive system; Z87.01 Personal history of pneumonia (recurrent); Z87.09 Personal history of other diseases of the respiratory system; Z94.81 Bone marrow transplant status; Z98.890 Other specified postprocedural states; Z80.7 Family history of other malignant neoplasms of lymphoid, hematopoietic and related tissues; Z82.49 Family history of ischemic heart disease and other diseases of the circulatory system; R79.1 Abnormal coagulation profile; Z79.01 Long term (current) use of anticoagulants; Z79.1 Long term (current) use of non-steroidal anti-inflammatories (NSAID); Z79.899 Other long term (current) drug therapy; Z88.0 Allergy status to penicillin; Z88.8 Allergy status to other drugs, medicaments and biological substances
CPT/HCPCS: 96365; 99285; 36415; 93005 ×2; 85379; 84439; 80053; 80048; 83605; 83735; 84443; 84484; 85025 ×3; 85610; 85730; 86140; 81003; 87040; 87081; 87430; 87502; 84145; 71046; 93971; 71275; 74177; G0378 ×3; Q9967 ×2; J0348

== ENCOUNTER 2019-11-04 09:14 | Day surgery (SDC) | payer MEDICARE ==
[2019-10-30 16:25] VITALS: BMI 27.2
[~2019-11-04 09:14] MED LIST changes: -LIDOCAINE 1% 20 ML VIAL (10MG/ML) FOR IV START INTRADERMA PRN; -MIDAZOLAM 2 MG/2 ML VIAL IV PRN
[2019-11-04 09:43] VITALS: TEMP 96.6
[2019-11-04] MEDS ORDERED: LIDOCAINE 1% (10MG/ML) FOR IV START INTRADERMA ONE (09:47)
[2019-11-04] MEDS ORDERED: PROPOFOL 10 MG/ML 20 ML VIAL IV ONE (10:44)
[2019-11-04] MEDS ORDERED: LIDOCAINE 1% INJ 10MG/ML (20 ML MDV) ONE (10:44)
--- NOTE | 2019-11-04 11:03 | P.PCN ---
Date of Procedure: 11/04/19 Procedure(s) Performed: BRIEF HISTORY: Patient is a 73-year-old pleasant white male scheduled for an elective colonoscopy as a part of screening for colorectal neoplasia. PROCEDURE PERFORMED: Colonoscopy. PREOPERATIVE DIAGNOSIS: Screening for colon cancer. IV sedation per Anesthesia. PROCEDURE: After informed consent was obtained, the patient, was brought into the endoscopy unit. IV sedation was administered by Anesthesia under continuous monitoring. Digital rectal examination was normal. Initially the Olympus CF-160 flexible video colonoscope was then inserted in the rectum, gradually advanced into the cecum without any difficulty. Careful examination was performed as the scope was gradually being withdrawn. Ileocecal valve and the appendiceal orifice were visualized and appeared normal. Prep was excellent. Mucosa of the cecum, ascending colon, transverse colon, descending colon, sigmoid colon, and rectum appeared normal. Retroflexion was performed in the rectum and no lesions were seen. The patient tolerated the procedure well. IMPRESSION: Normal-appearing colon from rectum to cecum with no evidence of colorectal neoplasia . RECOMMENDATIONS: Findings of this examination were discussed with the patient as well as his family. He was advised to have a repeat screening colonoscopy in 10 years,.
[2019-11-04 11:30] VITALS: BP 128/71; PULSE 51; RESP 20
== END 2019-11-04 11:44 | disposition home or self-care (01) ==
LOC: ORWHC2ENDO 09:14
PROVIDERS: ATTEND Internal Medicine Gastroenterology
DX: Z12.11 Encounter for screening for malignant neoplasm of colon (principal); I48.91 Unspecified atrial fibrillation; J40 Bronchitis, not specified as acute or chronic; K21.9 Gastro-esophageal reflux disease without esophagitis; Z85.79 Personal history of other malignant neoplasms of lymphoid, hematopoietic and related tissues; Z79.51 Long term (current) use of inhaled steroids; Z79.01 Long term (current) use of anticoagulants; Z79.1 Long term (current) use of non-steroidal anti-inflammatories (NSAID); Z79.899 Other long term (current) drug therapy; Z88.0 Allergy status to penicillin; Z88.8 Allergy status to other drugs, medicaments and biological substances; M19.90 Unspecified osteoarthritis, unspecified site
CPT/HCPCS: J2001; J2704; G0121; 45378

== ENCOUNTER → 2019-12-11 | Outpatient (CLI) | payer MEDICARE | END | disposition home or self-care (01) | LOC: LABWHC1 09:06 | PROVIDERS: ATTEND Internal Medicine Geriatric Medicine | DX: Z20.828 Contact with and (suspected) exposure to other viral communicable diseases (principal) | CPT/HCPCS: 87502; U0003; C9803 ==

== ENCOUNTER 2019-12-12 02:43 | Emergency (ER) | payer MEDICARE ==
--- NOTE | 2019-12-12 03:21 | ED ---
General Adult HPI - General Chief complaint: Shortness of Breath Stated complaint: GIRMA Time Seen by Provider: 12/12/19 03:03 Source: patient, family Mode of arrival: wheelchair Limitations: no limitations - History of Present Illness Initial comments: This patient is a 74-year-old man who presents to be evaluated for a constellation of symptoms. He states that approximately 4-5 days ago he started to have a little bit of sore throat. He then also was having fevers and feeling very cold. He did see his primary physician and was sent in to have coronavirus and influenza tests which are pending. He was started on azithromycin and has taken 2 days of that. Patient also notes that the symptoms seem to be spreading down into his chest. He has had just a little bit of cough and then he had some chest tightness. denies other infectious symptoms. No change in urination. No vomiting or diarrhea. -: days(s) Location: neck Quality: burning Consistency: constant Improves with: none Worsens with: none Associated Symptoms: fever/chills, malaise Treatments Prior to Arrival: none - Related Data Home Medications Medication Instructions Recorded Confirmed ALPRAZolam [Xanax] 0.25 mg PO TID PRN 01/12/14 11/04/19 Meloxicam 7.5 mg PO DAILY 01/12/14 11/04/19 Albuterol Inhaler (Mhu) [Ventolin 1 - 2 puff INHALATION RT-QID PRN 06/24/17 11/04/19 Hfa Inhaler (Mhu)] Budesonide/Formoterol Fumarate 2 puff INHALATION RT-BID PRN 06/24/17 11/04/19 [Symbicort 160-4.5 Mcg Inhaler] Glucosam/Amador-Msm1/C/Julio/Bosw 1 tab PO DAILY 06/24/17 11/04/19 [Glucosamine-Chondroitin Tablet] Albuterol Nebulized [Ventolin 2.5 mg INHALATION RT-Q6H PRN 03/03/19 11/04/19 Nebulized] Cholecalciferol [Vitamin D3 (25 1,000 unit PO DAILY 03/03/19 11/04/19 Mcg = 1000 Iu)] Gentle Iron 28 1 cap PO DAILY 03/03/19 11/04/19 Magnesium Gluconate 100mg 100 mg PO DAILY 03/03/19 11/04/19 Turmeric Root Extract [Turmeric] 500 mg PO DAILY 03/03/19 11/04/19 Acetaminophen/Diphenhydramine 2 tab PO HS PRN 04/20/19 11/04/19 [Tylenol PM 500-25mg] Multivitamins, Thera [Multivitamin 1 tab PO DAILY 04/20/19 11/04/19 (formulary)] Diltiazem Cd [Cardizem CD] 180 mg PO QAM 10/30/19 11/04/19 Previous Rx's Medication Instructions Recorded Apixaban [Eliquis] 5 mg PO BID #60 tab 03/05/19 Flecainide Acetate [Tambocor] 100 mg PO Q12HR #60 tab 03/10/19 Allergies Allergy/AdvReac Type Severity Reaction Status Date / Time Penicillins Allergy Severe Rash/Hives Verified 12/12/19 02:54 anidulafungin AdvReac Chest Pain Verified 12/12/19 02:54 benzonatate AdvReac Dyspnea Verified 12/12/19 02:54 [From Harper Yanez] Review of Systems ROS Statement: Those systems with pertinent positive or pertinent negative responses have been documented in the HPI. ROS Other: All systems not noted in ROS Statement are negative. Constitutional: Reports: as per HPI, fever, chills Eyes: Denies: eye pain, eye discharge ENT: Reports: throat pain. Denies: ear pain, hearing loss, congestion Respiratory: Reports: cough. Denies: dyspnea, wheezes, hemoptysis Cardiovascular: Denies: chest pain, palpitations, edema Gastrointestinal: Denies: abdominal pain, nausea, vomiting, diarrhea Genitourinary: Denies: dysuria, frequency, hematuria Musculoskeletal: Denies: back pain Skin: Denies: rash Neurological: Denies: headache Past Medical History Past Medical History: Atrial Fibrillation, Cancer, Osteoarthritis (OA) Additional Past Medical History / Comment(s): Mantle Lymphoma, Basal Cell Carcinoma Oct 2012 (in remission), hx Bronchitis. History of Any Multi-Drug Resistant Organisms: None Reported Past Surgical History: Hernia Repair, Joint Replacement Additional Past Surgical History / Comment(s): Removal of skin cancer, bone marrow transplant, right knee replacement Past Anesthesia/Blood Transfusion Reactions: No Reported Reaction Past Psychological History: No Psychological Hx Reported Smoking Status: Never smoker Past Alcohol Use History: Occasional Past Drug Use History: None Reported - Past Family History Brother(s) Family Medical History: Cancer Additional Family Medical History / Comment(s): Patient has 2 brothers and both have passed one from multiple myeloma and one had CLL and multiple problems from obesity. Father Family Medical History: No Reported History Additional Family Medical History / Comment(s): Father was healthy and lived to be 95 yrs old. Mother Family Medical History: Vascular Disorder Additional Family Medical History / Comment(s): Mother at the age of 74 yrs from a ruptured aortic aneurysm. Son(s) Additional Family Medical History / Comment(s): Patient has 2 sons with no major medical problems. Patient doesn't have any sisters. General Exam Limitations: no limitations General appearance: alert, in no apparent distress Head exam: Present: atraumatic, normocephalic Eye exam: Present: normal appearance. Absent: scleral icterus, conjunctival injection ENT exam: Present: mucous membranes moist, TM's normal bilaterally, normal external ear exam, other (Cobblestoning of the pharynx) Neck exam: Present: normal inspection, full ROM, lymphadenopathy. Absent: meningismus Respiratory exam: Present: normal lung sounds bilaterally. Absent: respiratory distress, wheezes, rales, rhonchi, stridor Cardiovascular Exam: Present: regular rate, normal rhythm, normal heart sounds. Absent: systolic murmur, diastolic murmur, rubs, gallop GI/Abdominal exam: Present: soft. Absent: distended, tenderness, guarding, rebound, rigid, mass Extremities exam: Present: normal inspection, normal capillary refill. Absent: pedal edema, calf tenderness Back exam: Present: normal inspection. Absent: CVA tenderness (R), CVA tenderness (L) Neurological exam: Present: alert Skin exam: Present: warm, dry, intact, normal color. Absent: rash Course Vital Signs 12/12/19 12/12/19 02:46 06:50 Temperature 98.2 F 98 F Pulse Rate 70 76 Respiratory 16 18 Rate Blood Pressure 124/73 132/72 O2 Sat by Pulse 99 99 Oximetry EKG Findings - EKG Results: EKG: interpreted by ERMD, WNL, sinus rhythm (Rate 73 bpm), normal axis, normal QRS, normal ST/T - DC, Pacemaker, Normal: Normal tracing: normal tracing Medical Decision Making - Medical Decision Making Patient is 74-year-old man with fever, chills, sore throat. On exam there is m ild pharyngitis. The patient's workup does reveal mild elevation of transaminases and alk phos follows but he has absolutely no abdominal or right upper quadrant tenderness. He is currently taking azithromycin. At this point the patient states he feels well enough to go home, so will have close follow-up with the patient's primary physician and discussed return parameters. - Lab Data Result diagrams: 12/12/19 03:53 12/12/19 03:53 Lab Results 12/12/19 12/12/19 12/12/19 Range/Units 03:53 03:53 03:53 WBC 17.2 H (3.8-10.6) k/uL RBC 4.13 L (4.30-5.90) m/uL Hgb 12.6 L (13.0-17.5) gm/dL Hct 39.1 (39.0-53.0) % MCV 94.8 (80.0-100.0) fL MCH 30.6 (25.0-35.0) pg MCHC 32.3 (31.0-37.0) g/dL RDW 13.3 (11.5-15.5) % Plt Count 317 (150-450) k/uL Neutrophils % 83 % Lymphocytes % 10 % Monocytes % 4 % Eosinophils % 2 % Basophils % 0 % Neutrophils # 14.3 H (1.3-7.7) k/uL Lymphocytes # 1.7 (1.0-4.8) k/uL Monocytes # 0.6 (0-1.0) k/uL Eosinophils # 0.3 (0-0.7) k/uL Basophils # 0.1 (0-0.2) k/uL Sodium 137 (137-145) mmol/L Potassium 4.6 (3.5-5.1) mmol/L Chloride 104 (98-107) mmol/L Carbon Dioxide 25 (22-30) mmol/L Anion Gap 8 mmol/L BUN 19 (9-20) mg/dL Creatinine 1.00 (0.66-1.25) mg/dL Est GFR (CKD-EPI)AfAm 87 (>60 ml/min/1.73 sqM) Est GFR (CKD-EPI)NonAf 75 (>60 ml/min/1.73 sqM) Glucose 113 H (74-99) mg/dL Plasma Lactic Acid Evan (0.7-2.0) mmol/L Calcium 8.5 (8.4-10.2) mg/dL Total Bilirubin 0.6 (0.2-1.3) mg/dL AST 310 H (17-59) U/L ALT 294 H (4-49) U/L Alkaline Phosphatase 286 H (38-126) U/L Total Protein 6.1 L (6.3-8.2) g/dL Albumin 3.3 L (3.5-5.0) g/dL Urine Color Urine Appearance (Clear) Urine pH (5.0-8.0) Ur Specific Evergreen (1.001-1.035) Urine Protein (Negative) Urine Glucose (UA) (Negative) Urine Ketones (Negative) Urine Blood (Negative) Urine Nitrite (Negative) Urine Bilirubin (Negative) Urine Urobilinogen (<2.0) mg/dL Ur Leukocyte Esterase (Negative) Heterophile Antibody Negative (Negative) Group A Strep Rapid (Negative) 12/12/19 12/12/19 12/12/19 Range/Units 03:53 05:11 06:19 WBC (3.8-10.6) k/uL RBC (4.30-5.90) m/uL Hgb (13.0-17.5) gm/dL Hct (39.0-53.0) % MCV (80.0-100.0) fL MCH (25.0-35.0) pg MCHC (31.0-37.0) g/dL RDW (11.5-15.5) % Plt Count (150-450) k/uL Neutrophils % % Lymphocytes % % Monocytes % % Eosinophils % % Basophils % % Neutrophils # (1.3-7.7) k/uL Lymphocytes # (1.0-4.8) k/uL Monocytes # (0-1.0) k/uL Eosinophils # (0-0.7) k/uL Basophils # (0-0.2) k/uL Sodium (137-145) mmol/L Potassium (3.5-5.1) mmol/L Chloride (98-107) mmol/L Carbon Dioxide (22-30) mmol/L Anion Gap mmol/L BUN (9-20) mg/dL Creatinine (0.66-1.25) mg/dL Est GFR (CKD-EPI)AfAm (>60 ml/min/1.73 sqM) Est GFR (CKD-EPI)NonAf (>60 ml/min/1.73 sqM) Glucose (74-99) mg/dL Plasma Lactic Acid Evan 1.0 (0.7-2.0) mmol/L Calcium (8.4-10.2) mg/dL Total Bilirubin (0.2-1.3) mg/dL AST (17-59) U/L ALT (4-49) U/L Alkaline Phosphatase (38-126) U/L Total Protein (6.3-8.2) g/dL Albumin (3.5-5.0) g/dL Urine Color Yellow Urine Appearance Clear (Clear) Urine pH 7.0 (5.0-8.0) Ur Specific Evergreen 1.016 (1.001-1.035) Urine Protein Negative (Negative) Urine Glucose (UA) Negative (Negative) Urine Ketones Negative (Negative) Urine Blood Negative (Negative) Urine Nitrite Negative (Negative) Urine Bilirubin Negative (Negative) Urine Urobilinogen <2.0 (<2.0) mg/dL Ur Leukocyte Esterase Negative (Negative) Heterophile Antibody (Negative) Group A Strep Rapid Negative (Negative) Disposition Clinical Impression: Pharyngitis Disposition: HOME SELF-CARE Condition: Good Instructions (If sedation given, give patient instructions): Pharyngitis (ED) Additional Instructions: As we discussed, your transaminase levels are slightly elevated. Please follow with your physician to have these rechecked in a few days. Should you be feeling worse in anyway check back immediately. Is patient prescribed a controlled substance at d/c from ED?: No Referrals: Hemanth Meza MD [Primary Care Provider] - 1-2 days
[2019-12-12 04:11] LABS: Basophils # (A) 0.1 k/uL (0-0.2); Basophils % (A) 0 %; Eosinophils # (A) 0.3 k/uL (0-0.7); Eosinophils % (A) 2 %; HCT 39.1 % (39.0-53.0); HGB 12.6 gm/dL (13.0-17.5); Lymphocytes # (A) 1.7 k/uL (1.0-4.8); Lymphocytes % (A) 10 %; MCH 30.6 pg (25.0-35.0); MCHC 32.3 g/dL (31.0-37.0); MCV 94.8 fL (80.0-100.0); Mean Platelet Volume 8.6; Monocytes # (A) 0.6 k/uL (0-1.0); Monocytes % (A) 4 %; Neutrophils # (A) 14.3 k/uL (1.3-7.7); Neutrophils % (A) 83 %; Platelet Count 317 k/uL (150-450); RBC 4.13 m/uL (4.30-5.90); RDW 13.3 % (11.5-15.5); WBC 17.2 k/uL (3.8-10.6)
[2019-12-12 04:38] LABS: Albumin 3.3 g/dL (3.5-5.0); Calcium 8.5 mg/dL (8.4-10.2); Potassium 4.6 mmol/L (3.5-5.1); Total Bilirubin 0.6 mg/dL (0.2-1.3); Total Protein 6.1 g/dL (6.3-8.2)
--- NOTE | 2019-12-12 04:47 | XR ---
EXAM: XR Chest, 2 Views CLINICAL HISTORY: Fever, evaluate for pulmonary infection TECHNIQUE: Frontal and lateral views of the chest. COMPARISON: 04/20/2019 FINDINGS: Clear lungs. No pleural effusion or pneumothorax. Normal cardiac contour and mediastinal silhouette. No displaced rib fractures. Multilevel degenerative changes of the mid and lower thoracic spine. IMPRESSION: No acute pulmonary process.
[2019-12-12 05:36] LABS: Appearance,Urine Clear (Clear); Bilirubin,Urine Negative (Negative); Blood,Urine Negative (Negative); Color,Urine Yellow; Glucose,Urine (UA) Negative (Negative); Ketones,Urine Negative (Negative); Leukocyte Esterase,Urine Negative (Negative); Nitrite,Urine Negative (Negative); Protein,Urine Negative (Negative); Specific Gravity,Urine 1.016 (1.001-1.035); Urobilinogen,Urine <2.0 mg/dL (<2.0)
[2019-12-12 06:51] VITALS: BP 132/72; PULSE 76; RESP 18; TEMP 98
== END 2019-12-12 06:51 | disposition home or self-care (01) ==
LOC: EC 02:43
DX: J02.9 Acute pharyngitis, unspecified (principal); R74.01 Elevation of levels of liver transaminase levels; R74.8 Abnormal levels of other serum enzymes; M19.90 Unspecified osteoarthritis, unspecified site; I48.91 Unspecified atrial fibrillation; Z79.1 Long term (current) use of non-steroidal anti-inflammatories (NSAID); Z79.899 Other long term (current) drug therapy; Z88.0 Allergy status to penicillin; Z88.8 Allergy status to other drugs, medicaments and biological substances; Z88.3 Allergy status to other anti-infective agents; Z96.651 Presence of right artificial knee joint; Z85.828 Personal history of other malignant neoplasm of skin
CPT/HCPCS: 36415; 71046; 80053; 81003; 83605; 85025; 86308; 87081; 87430; 93005; 99285

== ENCOUNTER 2019-12-17 13:58 | Observation (INO) | payer MEDICARE ==
--- NOTE | 2019-12-17 14:34 | ED ---
General Adult HPI - General Source: patient, RN notes reviewed, old records reviewed Mode of arrival: ambulatory Limitations: no limitations <Raz Sharma - Last Filed: 12/17/19 14:41> <Fredy Vaca - Last Filed: 12/17/19 17:07> - General Chief complaint: Chest Pain Stated complaint: chest pain Time Seen by Provider: 12/17/19 14:00 - History of Present Illness Initial comments: This is a 74-year-old male who has past medical history significant for lymphoma as well as atrial fibrillation and is on eliquis. Patient states he had 3 episodes of chest discomfort and he states it feels like a pressure as though someone is standing on his chest. Patient states she eventually symptoms do not radiate anywhere however he does complain of some pain in his neck. Patient denies shortness of breath. Patient states the pain resolves on his own. Patient states he was in the ER earlier this week and they did not find anything at that time. Patient states the pain continues to come and go. Patient states he does still have this neck/throat discomfort. Patient denies abdominal pain patient denies nausea vomiting diarrhea. Patient denies headache patient denies numbness weakness. Patient denies any neurologic deficit. (Raz Sharma) - Related Data Home Medications Medication Instructions Recorded Confirmed ALPRAZolam [Xanax] 0.25 mg PO HS PRN 01/12/14 12/17/19 Meloxicam 7.5 mg PO DAILY 01/12/14 12/17/19 Glucosam/Amador-Msm1/C/Julio/Bosw 1 tab PO DAILY 06/24/17 12/17/19 [Glucosamine-Chondroitin Tablet] Cholecalciferol [Vitamin D3 (25 1,000 unit PO DAILY 03/03/19 12/17/19 Mcg = 1000 Iu)] Gentle Iron 28 1 cap PO DAILY 03/03/19 12/17/19 Magnesium Gluconate 100mg 100 mg PO DAILY 03/03/19 12/17/19 Turmeric Root Extract [Turmeric] 500 mg PO DAILY 03/03/19 12/17/19 Multivitamins, Thera [Multivitamin 1 tab PO DAILY 04/20/19 12/17/19 (formulary)] Diltiazem Cd [Cardizem CD] 180 mg PO QAM 10/30/19 12/17/19 Flecainide Acetate [Tambocor] 100 mg PO BID 12/17/19 12/17/19 prednisoLONE ACETATE 1% OPHTH 1 drops BOTH EYES HS PRN 12/17/19 12/17/19 [Pred Forte 1%] Previous Rx's Medication Instructions Recorded Apixaban [Eliquis] 5 mg PO BID #60 tab 03/05/19 Allergies Allergy/AdvReac Type Severity Reaction Status Date / Time Penicillins Allergy Severe Rash/Hives Verified 12/17/19 16:32 anidulafungin AdvReac Chest Pain Verified 12/17/19 16:32 benzonatate AdvReac Dyspnea Verified 12/17/19 16:32 [From Harper Yanez] Review of Systems ROS Other: All systems not noted in ROS Statement are negative. <Raz Sharma - Last Filed: 12/17/19 14:41> ROS Other: All systems not noted in ROS Statement are negative. <Fredy Vaca - Last Filed: 12/17/19 17:07> ROS Statement: Those systems with pertinent positive or pertinent negative responses have been documented in the HPI. Past Medical History Past Medical History: Atrial Fibrillation, Cancer, Osteoarthritis (OA) Additional Past Medical History / Comment(s): Mantle Lymphoma, Basal Cell Carcinoma Oct 2012 (in remission), hx Bronchitis. History of Any Multi-Drug Resistant Organisms: None Reported Past Surgical History: Hernia Repair, Joint Replacement Additional Past Surgical History / Comment(s): Removal of skin cancer, bone marrow transplant, right knee replacement Past Anesthesia/Blood Transfusion Reactions: No Reported Reaction Past Psychological History: No Psychological Hx Reported Smoking Status: Never smoker Past Alcohol Use History: Occasional Past Drug Use History: None Reported - Past Family History Brother(s) Family Medical History: Cancer Additional Family Medical History / Comment(s): Patient has 2 brothers and both have passed one from multiple myeloma and one had CLL and multiple problems from obesity. Father Family Medical History: No Reported History Additional Family Medical History / Comment(s): Father was healthy and lived to be 95 yrs old. Mother Family Medical History: Vascular Disorder Additional Family Medical History / Comment(s): Mother at the age of 74 yrs from a ruptured aortic aneurysm. Son(s) Additional Family Medical History / Comment(s): Patient has 2 sons with no major medical problems. Patient doesn't have any sisters. <Raz Sharma - Last Filed: 12/17/19 14:41> General Exam Limitations: no limitations <Raz Sharma - Last Filed: 12/17/19 14:41> - General Exam Comments Initial Comments: GENERAL: Patient is well-developed and well-nourished. Patient is nontoxic and well- hydrated and is in mild distress. ENT: Neck is soft and supple. No significant lymphadenopathy is noted. Oropharynx is clear. Moist mucous membranes. Neck has full range of motion without eliciting any pain. On palpation of the anterior neck patient has pain wood aterally. There is no thyroid enlargement and no masses were felt. EYES: The sclera were anicteric and conjunctiva were pink and moist. Extraocular movements were intact and pupils were equal round and reactive to light. Eyelids were unremarkable. PULMONARY: Unlabored respirations. Good breath sounds bilaterally. No audible rales rhonchi or wheezing was noted. CARDIOVASCULAR: There is a regular rate and rhythm without any murmurs gallops or rubs. ABDOMEN: Soft and nontender with normal bowel sounds. No palpable organomegaly was noted. There is no palpable pulsatile mass. SKIN: Skin is clear with no lesions or rashes and otherwise unremarkable. NEUROLOGIC: Patient is alert and oriented x3. Cranial nerves II through XII are grossly intact. Motor and sensory are also intact. Normal speech, volume and content. Symmetrical smile. Cerebellar exam grossly intact. MUSCULOSKELETAL: Normal extremities with adequate strength and full range of motion. LYMPHATICS: No significant lymphadenopathy is noted PSYCHIATRIC: Normal psychiatric evaluation. (Raz Sharma) Course <Fredy Vaca - Last Filed: 12/17/19 17:07> Vital Signs 12/17/19 12/17/19 12/17/19 13:59 14:06 14:27 Temperature 98.0 F 97.9 F Pulse Rate 80 72 Pulse Rate [ 73 Zigzag Stitcher ] Respiratory 18 14 Rate Blood Pressure 114/80 121/78 O2 Sat by Pulse 98 98 Oximetry 12/17/19 12/17/19 15:41 16:21 Temperature 97.9 F 97.6 F Pulse Rate 68 65 Pulse Rate [ Zigzag Stitcher ] Respiratory 14 14 Rate Blood Pressure 121/78 112/71 O2 Sat by Pulse 98 99 Oximetry - Reevaluation(s) Reevaluation #1: 12/17/19 15:41 Patient evaluated after sign out, resting comfortably with stable vitals. (Fredy Vaca) Medical Decision Making <Raz Sharma - Last Filed: 12/17/19 14:41> - Lab Data Result diagrams: 12/17/19 14:44 12/17/19 14:44 <Fredy Vaca - Last Filed: 12/17/19 17:07> - Medical Decision Making EKG shows normal sinus rhythm at 72 bpm NM interval is 206 QRS is 100 QT interval is 426 QTC is [address] segment elevation or depression. Dr. Vaca will be taking over the care of this patient at 3 PM (Velma Sharma) Patient's care is signed out at shift change awaiting workup for both neck pain and chest pain. Patient has a family history of aortic aneurysm or dissection. He's had intermittent chest pain over the past one week. Patient has leukocytosis which is stable from prior. He has a stable hemoglobin, normal electrolytes. 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 Also incidentally there is some small gallstones. His chest x-rays negative for acute cardiopulmonary disease. CT of the soft tissue neck shows a 8 mm lymph node which is possibly reactive. He did have complaint of sore throat, strep and mono are negative. He will be placed in observation for serial cardiac enzymes, echo, telemetry, cardiology consultation. The case is discussed with Dr. Vizcaino who will admit. (Fredy Vaca) - Lab Data Lab Results 12/17/19 12/17/19 12/17/19 Range/Units 14:44 14:44 14:44 WBC 15.3 H (3.8-10.6) k/uL RBC 4.31 (4.30-5.90) m/uL Hgb 13.2 (13.0-17.5) gm/dL Hct 40.3 (39.0-53.0) % MCV 93.4 (80.0-100.0) fL MCH 30.7 (25.0-35.0) pg MCHC 32.9 (31.0-37.0) g/dL RDW 13.0 (11.5-15.5) % Plt Count 371 (150-450) k/uL Neutrophils % 75 % Lymphocytes % 17 % Monocytes % 4 % Eosinophils % 2 % Basophils % 1 % Neutrophils # 11.4 H (1.3-7.7) k/uL Lymphocytes # 2.6 (1.0-4.8) k/uL Monocytes # 0.6 (0-1.0) k/uL Eosinophils # 0.3 (0-0.7) k/uL Basophils # 0.1 (0-0.2) k/uL PT 9.8 (9.0-12.0) sec INR 0.9 (<1.2) APTT 30.0 (22.0-30.0) sec Sodium 134 L (137-145) mmol/L Potassium 4.4 (3.5-5.1) mmol/L Chloride 101 (98-107) mmol/L Carbon Dioxide 26 (22-30) mmol/L Anion Gap 7 mmol/L BUN 20 (9-20) mg/dL Creatinine 0.99 (0.66-1.25) mg/dL Est GFR (CKD-EPI)AfAm 88 (>60 ml/min/1.73 sqM) Est GFR (CKD-EPI)NonAf 76 (>60 ml/min/1.73 sqM) Glucose 93 (74-99) mg/dL Calcium 8.6 (8.4-10.2) mg/dL Magnesium 2.3 (1.6-2.3) mg/dL Total Bilirubin 0.6 (0.2-1.3) mg/dL AST 41 (17-59) U/L ALT 100 H (4-49) U/L Alkaline Phosphatase 245 H (38-126) U/L Troponin I (0.000-0.034) ng/mL Total Protein 6.5 (6.3-8.2) g/dL Albumin 3.5 (3.5-5.0) g/dL Heterophile Antibody (Negative) Group A Strep Rapid (Negative) 12/17/19 12/17/19 12/17/19 Range/Units 14:44 14:44 14:44 WBC (3.8-10.6) k/uL RBC (4.30-5.90) m/uL Hgb (13.0-17.5) gm/dL Hct (39.0-53.0) % MCV (80.0-100.0) fL MCH (25.0-35.0) pg MCHC (31.0-37.0) g/dL RDW (11.5-15.5) % Plt Count (150-450) k/uL Neutrophils % % Lymphocytes % % Monocytes % % Eosinophils % % Basophils % % Neutrophils # (1.3-7.7) k/uL Lymphocytes # (1.0-4.8) k/uL Monocytes # (0-1.0) k/uL Eosinophils # (0-0.7) k/uL Basophils # (0-0.2) k/uL PT (9.0-12.0) sec INR (<1.2) APTT (22.0-30.0) sec Sodium (137-145) mmol/L Potassium (3.5-5.1) mmol/L Chloride (98-107) mmol/L Carbon Dioxide (22-30) mmol/L Anion Gap mmol/L BUN (9-20) mg/dL Creatinine (0.66-1.25) mg/dL Est GFR (CKD-EPI)AfAm (>60 ml/min/1.73 sqM) Est GFR (CKD-EPI)NonAf (>60 ml/min/1.73 sqM) Glucose (74-99) mg/dL Calcium (8.4-10.2) mg/dL Magnesium (1.6-2.3) mg/dL Total Bilirubin (0.2-1.3) mg/dL AST (17-59) U/L ALT (4-49) U/L Alkaline Phosphatase (38-126) U/L Troponin I <0.012 (0.000-0.034) ng/mL Total Protein (6.3-8.2) g/dL Albumin (3.5-5.0) g/dL Heterophile Antibody Negative (Negative) Group A Strep Rapid Negative (Negative) Disposition <Raz Sharma - Last Filed: 12/17/19 14:41> Is patient prescribed a controlled substance at d/c from ED?: No Decision to Admit Reason: Admit from EC Decision Date: 12/17/19 Decision Time: 17:07 <Fredy Vaca - Last Filed: 12/17/19 17:07> Clinical Impression: Chest pain, Leukocytosis Disposition: ADMITTED IP TO THIS [facility] Condition: Stable Referrals: Hemanth Meza MD [Primary Care Provider] - 1-2 days
[2019-12-17 14:55] LABS: Basophils # (A) 0.1 k/uL (0-0.2); Basophils % (A) 1 %; Eosinophils # (A) 0.3 k/uL (0-0.7); Eosinophils % (A) 2 %; HCT 40.3 % (39.0-53.0); HGB 13.2 gm/dL (13.0-17.5); Lymphocytes # (A) 2.6 k/uL (1.0-4.8); Lymphocytes % (A) 17 %; MCH 30.7 pg (25.0-35.0); MCHC 32.9 g/dL (31.0-37.0); MCV 93.4 fL (80.0-100.0); Mean Platelet Volume 8.4; Monocytes # (A) 0.6 k/uL (0-1.0); Monocytes % (A) 4 %; Neutrophils # (A) 11.4 k/uL (1.3-7.7); Neutrophils % (A) 75 %; Platelet Count 371 k/uL (150-450); RBC 4.31 m/uL (4.30-5.90); WBC 15.3 k/uL (3.8-10.6)
--- NOTE | 2019-12-17 14:55 | XR ---
EXAMINATION TYPE: XR chest 2V DATE OF EXAM: 12/17/2019 COMPARISON: 12/12/2019 TECHNIQUE: PA and lateral views submitted. HISTORY: Chest pain FINDINGS: The lungs are clear and there is no pneumothorax, pleural effusion, or focal pneumonia. Heart size normal. No overt failure. Biapical pleural thickening. Hypertrophic and degenerative change of the sp ine. IMPRESSION: 1. No acute process.
[2019-12-17 15:04] LABS: Albumin 3.5 g/dL (3.5-5.0); Calcium 8.6 mg/dL (8.4-10.2); Magnesium 2.3 mg/dL (1.6-2.3); Potassium 4.4 mmol/L (3.5-5.1); Total Bilirubin 0.6 mg/dL (0.2-1.3); Total Protein 6.5 g/dL (6.3-8.2)
[2019-12-17 15:06] LABS: INR 0.9 (<1.2); Prothrombin Time 9.8 sec (9.0-12.0)
--- NOTE | 2019-12-17 16:37 | CT ---
EXAMINATION TYPE: CT soft tissue neck w con DATE OF EXAM: 12/17/2019 COMPARISON: None HISTORY: 74-year-old male Neck pain and swelling TECHNIQUE: Contiguous axial scanning of the soft tissues of the neck performed with IV Contrast, nicolasa ent injected with 50 mL of Isovue 370. Coronal/sagittal reconstructions performed. CT DLP: 354 mGycm Automated exposure control for dose reduction was used. FINDINGS: Ectatic proximal arch measuring 3.7 cm. Mild atherosclerotic arch calcifications with conventional ve ssel branching anatomy. Thyroid gland somewhat small. Submandibular and parotid glands also slightly atrophic. 1.9 cm mucosal retention cyst floor of the right maxillary sinus. Small amount of fluid trapped withi n the inferior left mastoid air cells. Nasopharynx appears clear. Prominent dental amalgam limits portions of the oral cavity. Mild lingual tonsillar hypertrophy. Otherwise, oropharynx is clear. Epiglottis and prevertebral soft tissues are satisfactory. Glottic and subglottic structures as well as the tracheal column and visualized upper lungs are clear . Asymmetrically larger 8 mm left submandibular space lymph node, axial image 52. Otherwise, no cervica l lymphadenopathy is identified by CT size criteria. Bones: Moderate multilevel spondylotic change. Degenerative grade 1 anterolisthesis C4-C5. IMPRESSION: 1. ASYMMETRICALLY LARGER 8 MM LEFT SUBMANDIBULAR SPACE LYMPH NODE, PROBABLY REACTIVE/POST INFLAMMATOR Y. CORRELATE TO THE AREA OF PATIENT'S PAIN AND SWELLING. 2. 1.9 CM MUCOSAL RETENTION CYST ALONG THE FLOOR THE RIGHT MAXILLARY SINUS. 3. Small amount of fluid within the left mastoid air cells. Correlate for any mastoid pain to exclude mastoiditis.
--- NOTE | 2019-12-17 16:47 | CT ---
EXAMINATION TYPE: CT angio thor/abd pel aorta DATE OF EXAM: 12/17/2019 COMPARISON: 04/21/2019 HISTORY: 74-year-old male Chest pain, family history of dissection TECHNIQUE: Contiguous axial scanning of the chest, abdomen, and pelvis performed without and with IV Contrast, patient injected with 75 mL of Isovue 370. Coronal/sagittal MIP reconstructions performed. 3-D reconstructions generated on a dedicated workstation. CT DLP: 2379.4 mGycm Automated exposure control for dose reduction was used. FINDINGS: CHEST: Heart upper limits of normal in size without pericardial effusion. No thoracic lymphadenopathy. No filling defect within the central central pulmonary arteries. Lungs show no consolidation or pleural effusion. Breathing motion artifact at the lung bases. ABDOMEN: 1.6 cm cyst at the left hepatic dome. Small layering gallstones. No abnormal gallbladder distention. No biliary ductal dilatation. Adrenal glands and spleen appear within normal limits. Multiple renal cortical cysts. Many of which are too small for accurate CT characterization. Largest posterior left kidney measures 4.8 cm and a left parapelvic cyst measuring 2.6 cm. There is a soft tissue nodule within the right side of the pancreatic head measuring 1.5 cm. The thic kness appears to have been present on 04/21/2019 compatible with a prominent lobule of pancreatic tiss ue. No dilated small bowel, free fluid, or free air. No mesenteric or retroperitoneal lymphadenopathy. Mild stool burden. No perisplenic inflammatory change. PELVIS: Urinary distended. Pelvic phlebolith. Prostate gland mildly enlarged at 4.1 cm. No abnormal fluid col lection in the pelvis or pelvic lymphadenopathy. VASCULATURE: Mild aneurysm aortic root at 4.2 cm. Ectatic ascending aorta 3.9 cm. Complex large vessel branching anatomy. Scattered mild atherosclerotic calcifications. Noncontrast images show no evidence for acute intramural hematoma. No evidence for aortic dissection. Mild atherosclerotic calcifications at the origin of the iliac axis and SMA. Renal arteries are paten t. Mild to moderate atherosclerotic calcifications infrarenal abdominal aorta without aneurysm. RAQUEL i s patent. Ectatic right and left common iliac arteries 1.5 and 1.8 cm, respectively. BONES: Mild degenerative change of the hips. Moderate to advanced degenerative disc disease throughout the l umbar spine. Grade 1 retrolisthesis L2-L3. Bridging anterior endplate spondylosis lower thoracic spin e compatible with DISH. IMPRESSION: 1. NO EVIDENCE FOR AORTIC DISSECTION OR ACUTE AORTIC INJURY. MILDLY ANEURYSMAL AORTIC ROOT AT 4.2 CM AND ECTATIC ASCENDING AORTA 3.9 CM. 2. Ectatic right and left common iliac arteries at 1.5 and 1.8 cm, respectively. 3. Small layering gallstones and scattered renal cysts measuring up to 4.8 cm on the left.
[2019-12-17] MEDS ORDERED: MORPHINE SULFATE 4 MG/ML SYRINGE IV PRN (17:03)
[2019-12-17] MEDS ORDERED: NALOXONE 0.4 MG/ML 1 ML VIAL IV PRN (17:03)
[2019-12-17] MEDS ORDERED: ACETAMINOPHEN TAB 325 MG TAB PO PRN (17:03)
[2019-12-17] MEDS ORDERED: prednisoLONE ACETATE 1% OPHTH DROPS 5 ML BTL BOTH EYES PRN (17:05)
[2019-12-17] MEDS ORDERED: ALPRAZolam 0.25 MG TAB PO PRN (17:05)
[2019-12-17] MEDS: FLECAINIDE 50 MG TAB PO SCH (20:46)
[2019-12-17] MEDS: APIXABAN 5 MG TAB PO SCH (20:46)
--- NOTE | 2019-12-17 23:13 | P.HPIM ---
History of Present Illness H&P Date: 12/17/19 Chief Complaint: Shortness of breath and chest pain, CAD, history of lymphoma, new ascending 74-year-old male one of my office patient who seen oncology and cardiology regular basis known to have history of A. fib, history of mental lymphoma, basal cell carcinoma along with BPH and recurrent episode of reactive airway/COPD/asthma, patient is on anticoagulation [facility] also he is on flecainide for A. fib with RVR with pulse rates under control lately. Patient was seen in the office recently for recent URI was giving azithromycin return few days later with worsening symptom associated with worsening sore throat and mild odynophagia, we'll patient was giving steroid Dosepak did not improve his symptoms become much worse lately has been having significant shortness of breath since 2 AM in the morning worsening with exertion his symptom are a lot worse when laying down chest pain is midsternal radiating toward the left side of his jaw standing up with have his symptoms felt little bit better. Patient ended up coming to the emergency department with high suspicion for dissected thoracic aneurysm CT was done and showed ascending aortic aneurysm has not been seen previously in and 18 CAT scan size of aneurysm was 4.2 with no sign of dissection. Also the previous incidental of gallstone was found as well with no other major abnormality. CT of the neck and cervical spine shows large lymph node along with mucosal retention and sinus especially the left mastoid consistent with mastoiditis. Patient was admitted to the hospital will be seen cardiology and possibly needed thoracic esophageal echocardiogram to determine on the size and association with the ascending aortic aneurysm. Also patient has been followed by oncology for the mental cell lymphoma with no recent pharyngeal scope her testing done we will consider consult ENT for scope and possible biopsy from the cervical spine area. Review of Systems CONSTITUTIONAL: Well-developed mild started distress. EYES: No icterus sclerae, no conjunctivitis. EARS, NOSE, MOUTH, THROAT, and FACE: Positive sore throat with lymph node enlargement in the cervical area.. RESPIRATORY: Positive chest pain with mild shortness of breath cough wheezes. CARDIOVASCULAR: Positive CP, Palpitation, PND, Orthopnea, or angina. GASTROINTESTINAL: No Abd pain, Nausea or vomiting, no Diarrhea or constipation, No GI Bleed, no distention or masses. GENITOURINARY: Negative for Hematuria or UTI, no kidney stones. INTEGUMENT/BREAST: Negative for any muscular injury with mild osteoarthritis.. HEMATOLOGIC/LYMPHATIC: History of lymphoma and recurrent anemia.. MUSCULOSKELTAL: Negative for Myalgia or arthralgia. NEURLOGICAL: No LOC, Sz or syncope, blurred vision dizziness or abnormality.. BEHAVIORAL/PSYCH: Negative. ENDOCRINE: Negative. Past Medical History Past Medical History: Atrial Fibrillation, Cancer, Osteoarthritis (OA) Additional Past Medical History / Comment(s): Mantle Lymphoma, Basal Cell Carcinoma Oct 2012 (in remission), hx Bronchitis. History of Any Multi-Drug Resistant Organisms: None Reported Past Surgical History: Hernia Repair, Joint Replacement Additional Past Surgical History / Comment(s): Removal of skin cancer, bone m arrow transplant, right knee replacement Past Anesthesia/Blood Transfusion Reactions: No Reported Reaction Past Psychological History: No Psychological Hx Reported Additional Psychological History / Comment(s): Pt resides with his spouse. He has a nebulizer. He is independent. Smoking Status: Never smoker Past Alcohol Use History: Occasional Additional Past Alcohol Use History / Comment(s): Patient is a lifelong nonsmoker, no marijuana, no illicit drug use, he drinks alcohol 2-3 drinks on the weekend. He lives at home with his . 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 He does not require a walker. He does have a nebulizer at home. He does not have oxygen, no CPAP. Past Drug Use History: None Reported - Past Family History Brother(s) Family Medical History: Cancer Additional Family Medical History / Comment(s): Patient has 2 brothers and both have passed one from multiple myeloma and one had CLL and multiple problems from obesity. Father Family Medical History: No Reported History Additional Family Medical History / Comment(s): Father was healthy and lived to be 95 yrs old. Mother Family Medical History: Vascular Disorder Additional Family Medical History / Comment(s): Mother at the age of 74 yrs from a ruptured aortic aneurysm. Son(s) Additional Family Medical History / Comment(s): Patient has 2 sons with no major medical problems. Patient doesn't have any sisters. Medications and Allergies Home Medications Medication Instructions Recorded Confirmed Type ALPRAZolam [Xanax] 0.25 mg PO HS PRN 01/12/14 12/17/19 History Meloxicam 7.5 mg PO DAILY 01/12/14 12/17/19 History Glucosam/Amador-Msm1/C/Julio/Bosw 1 tab PO DAILY 06/24/17 12/17/19 History [Glucosamine-Chondroitin Tablet] Cholecalciferol [Vitamin D3 (25 1,000 unit PO DAILY 03/03/19 12/17/19 History Mcg = 1000 Iu)] Gentle Iron 28 1 cap PO DAILY 03/03/19 12/17/19 History Magnesium Gluconate 100mg 100 mg PO DAILY 03/03/19 12/17/19 History Turmeric Root Extract [Turmeric] 500 mg PO DAILY 03/03/19 12/17/19 History Apixaban [Eliquis] 5 mg PO BID #60 tab 03/05/19 12/17/19 Rx Multivitamins, Thera [Multivitamin 1 tab PO DAILY 04/20/19 12/17/19 History (formulary)] Diltiazem Cd [Cardizem CD] 180 mg PO QAM 10/30/19 12/17/19 History Flecainide Acetate [Tambocor] 100 mg PO BID 12/17/19 12/17/19 History prednisoLONE ACETATE 1% OPHTH 1 drops BOTH EYES HS PRN 12/17/19 12/17/19 History [Pred Forte 1%] Allergies Allergy/AdvReac Type Severity Reaction Status Date / Time Penicillins Allergy Severe Rash/Hives Verified 12/17/19 16:32 anidulafungin AdvReac Chest Pain Verified 12/17/19 16:32 benzonatate AdvReac Dyspnea Verified 12/17/19 16:32 [From Harper Yanez] Physical Exam Vitals: Vital Signs Temp Pulse Pulse Resp BP BP Pulse Ox 12/17/19 18:15 98.0 F 78 16 144/84 98 12/17/19 17:46 97.9 F 75 14 112/71 98 12/17/19 16:21 97.6 F 65 14 112/71 99 12/17/19 15:41 97.9 F 68 14 121/78 98 12/17/19 14:27 97.9 F 72 14 121/78 98 12/17/19 14:06 73 12/17/19 13:59 98.0 F 80 18 114/80 98 Intake and Output 12/17/19 12/17/19 12/17/19 06:59 14:59 22:59 Other: # Voids 1 Weight 95.254 kg 95.254 kg General Appearance: Alert, cooperative, no distress, appears stated age. Neck HEENT: Supple, positive large lymph node in the cervical area especially the left compared to the right no thyroid enlargement. Lungs: Decreased breath some bilateral fine rhonchi mild expiratory wheezes no crackles. Chest Wall: Decrease expansion with deep inspiration no tenderness and no deformity was found on exam, no costochondral pain or discomfort. Heart: Irregular rate and rhythm, S1, S2 normal, no murmur, rub or gallop. Back: Symmetric, no curvature, ROM normal, no CVA tenderness. Abdomen: Soft, non-tender, bowel sounds active all four quadrants, no masses, positive mild splenomegaly and hepatomegaly Extremities: Extremities normal, atraumatic, no cyanosis or edema. Pulses: 2+ and symmetric. Skin: Skin color, texture, tugor normal, no rashes or lesions. Neurologic: Alert oriented x3 cranial nerves II through XII intact, no motor deficit, no abnormal balance or gait. Results CBC & Chem 7: 12/17/19 14:44 12/17/19 14:44 Labs: Abnormal Lab Results - Last 24 Hours (Table) 12/17/19 12/17/19 Range/Units 14:44 14:44 WBC 15.3 H (3.8-10.6) k/uL Neutrophils # 11.4 H (1.3-7.7) k/uL Sodium 134 L (137-145) mmol/L ALT 100 H (4-49) U/L Alkaline Phosphatase 245 H (38-126) U/L Thrombosis Risk Factor Assmnt - DVT/VTE Prophylaxis DVT/VTE Prophylaxis: Pharmacologic Prophylaxis ordered, Mechanical Prophylaxis ordered - Choose All That Apply Other Risk Factors: Yes Each Risk Factor Represents 2 Points: Age 61-74 years Thrombosis Risk Factor Assessment Total Risk Factor Score: 2 Thrombosis Risk Factor Assessment Level: Low Risk Assessment and Plan Assessment: 1 recurrent chest pain with worsening symptom laying down and exertion then standing up, not a clear etiology at this point CK with troponin will be done repeat EKG and consult cardiology. 2 large ascending thoracic aneurysm with no dissection size 4.2 cm surprisingly not found in all testing patient might benefit from going for transesophageal echocardiogram for better diagnosis. 3 cervical lymph node enlargement: With the possibility of recurrent mantle cell lymphoma biopsy of the cervical spine might be recommended. 4 odynophagia: ENT consultation and possible need for pharyngeal scope looking for any significant finding and biopsy from the back of his throat. 5 reactive airway/asthma: Patient can benefit from being on DuoNeb and Pulmicort no steroid needed this point. 6 A. fib with RVR: Has been doing very well on flecainide still on anticoagulation with Eliquis 5 mg twice a day. Continue diltiazem as well. 7 severe GERD/GI prophylaxis: Patient will be on pantoprazole. 8 DVT prophylaxis: Patient is on Eliquis 5 mg twice a day. CODE STATUS: Full code. Admit patient to the inpatient service for more than 2 night stay.
[2019-12-18] MEDS ORDERED: DILTIAZEM CD 180 MG CAP.ER.24H PO SCH (09:00)
[2019-12-18] MEDS ORDERED: MAGNESIUM OXIDE 400 MG TAB PO SCH (09:00)
[2019-12-18] MEDS ORDERED: CAFFEINE CITRATE 60 MG/3 ML VIAL IV PRN (10:34)
[2019-12-18] MEDS ORDERED: REGADENOSON 0.4 MG/5 ML SYRINGE IV ONE (10:34)
[2019-12-18] MEDS ORDERED: AMINOPHYLLINE 500 MG/20 ML VIAL IV PRN (10:34)
[2019-12-18] MEDS ORDERED: IOPAMIDOL CONTRAST (ORAL USE) VIAL PO PRN ×2 (11:36→11:45)
--- NOTE | 2019-12-18 11:55 | P.CONS ---
History of Present Illness - Reason for Consult Consult date: 12/18/19 Enlarged Cervical adenopathy Requesting physician: Hemanth Mahmood - Chief Complaint Chest Pain - History of Present Illness This is a very nice patient who is well known to our practice and primary oncologist Dr. gan. He was first evaluated at the hospital by Dr Guzman on when he was admitted for mild,vague and intermittent abdominal pain,had a CT scan of abdomen/pelvis on 11/23/2012 which revealed hepatosplenomegaly,multiple masses within the peritoneal cavity(largest about 4.0x2.2cm)and several mural lesions involving segments of small intestine without obstruction,he also had leukocytosis(total wbc 17K,normal hemoglobin and platelets counts). CT scan of the chest done on 11/24/2012 showed mildly prominent mediastinal and hilar lymph nodes. On 11/26/2012,he had a bone marrow aspirate and biopsy which revealed 20% involvement with mantle cell lymphoma (immunoperoxidase positive for CD20 and cyclin D1). Flowcytometry on peripheral blood was consistent with CD5 positive clonal B cell,consistent with mantle cell lymphoma. Uric acid done on 12/04/2012 was 6.9,his LDH was slightly elevated at 288. A PET scan done on 12/06/2012 revealed suspicious uptake in the lymphadenopathies seen on CT scan. Echocardiogram done on 12/09/2012 revealed a low normal EF(50-55%). He was seen by Dr Porter at [facility] on 12/08/2012 who also recommended aggressive approach to his disease. He started Maxi RCHOP on 12/23/2012,he tolerated the first treatment very well,and his neutropenia resolved. He had R-High dose Marge-c on 01/13/2013 as inpatient which he tolerated very well. Cycle#2 part A started on 02/03/2013,he tolerated it well. He had cycle#2,part B on 02/27/2013 which he tolerated well. Repeat CT scan of chest/abdomen/pelvis at [facility] revealed excellent response. He started cycle # 3 part A on 03/19/2013 followed by neulasta. He had cycle#3 part B on 04/09/2013. He received neupogen followed by stem cell collection at [facility],he had stem cell transplant at [facility] on 05/04/2013. He had a repeat PET scan at [facility] on 05/24/2014 which revealed no evidence of disease,also repeat LFT at [facility] on 05/24/[address] scan of chest/abdomen/pelvis on 09/22/2017 revealed no evidence of recurrence. Colonoscopy done on 10/02/2017 (due to iron deficiency) which was unremarkable. CT scan of chest/abdomen/pelvis done on 04/21/2019 was negative for suspicous nodes or pathology. In February/2019,he was in the hospital for bronchitis and A fib,had cardioversion,was placed on eliquis. In April/2019,he had feraheme due to iron deficiency anemia. last seen in the office in September by Dr. Gan at that time concern of anemia and recommendation was made for colonoscopy to rule out iron deficiency from blood loss versus his Mantle cell Lymphoma. He did undergo a normal Colonoscopy in [facility] of this year. He has a known history of basal cell carcinoma, BPH, Atrial fib on eliquis, COPD. He recently has been struggling with symptoms of URI and has been evaluated by pcp Dr. mahmood. Complaints included mild odynphagia and did not improve on antibiotics or medrol dose pack. He complained of significant SOB that persisted and worsened overni ght, which also had symptoms of chest and radiating pain to jaw, therfore presented to emergency for further evaluation. On exam Primary care did note palpable cervical adenopathy and with his history of lymphoma we were asked to further evaluate. His overall labs are stable, no anemia mild leukocytosis. He did have a CT thorax abdomen and pelvis as well as neck which did not reveal any new areas of adenopathy. Review of Dr. Abel note agree with further evaluation of direct visusaluization of pharyngeal/esophagus. There was a 8mm submandibular lymph node identified which was felt to be reactive. Mucous retention cyst also noted. Review of Systems All systems: negative Constitutional: Reports as per HPI Past Medical History Past Medical History: Atrial Fibrillation, Cancer, Osteoarthritis (OA) Additional Past Medical History / Comment(s): Mantle Lymphoma, Basal Cell Carcinoma Oct 2012 (in remission), hx Bronchitis. History of Any Multi-Drug Resistant Organisms: None Reported Past Surgical History: Hernia Repair, Joint Replacement Additional Past Surgical History / Comment(s): Removal of skin cancer, bone marrow transplant, right knee replacement Past Anesthesia/Blood Transfusion Reactions: No Reported Reaction Past Psychological History: No Psychological Hx Reported Additional Psychological History / Comment(s): Pt resides with his spouse. He has a nebulizer. He is independent. Smoking Status: Never smoker Past Alcohol Use History: Occasional Additional Past Alcohol Use History / Comment(s): Patient is a lifelong non smoker, no marijuana, no illicit drug use, he drinks alcohol 2-3 drinks on the weekend. He lives at home with his . 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 He does not require a walker. He does have a nebulizer at home. He does not have oxygen, no CPAP. Past Drug Use History: None Reported - Past Family History Brother(s) Family Medical History: Cancer Additional Family Medical History / Comment(s): Patient has 2 brothers and both have passed one from multiple myeloma and one had CLL and multiple problems from obesity. Father Family Medical History: No Reported History Additional Family Medical History / Comment(s): Father was healthy and lived to be 95 yrs old. Mother Family Medical History: Vascular Disorder Additional Family Medical History / Comment(s): Mother at the age of 74 yrs from a ruptured aortic aneurysm. Son(s) Additional Family Medical History / Comment(s): Patient has 2 sons with no major medical problems. Patient doesn't have any sisters. Medications and Allergies Home Medications Medication Instructions Recorded Confirmed Type ALPRAZolam [Xanax] 0.25 mg PO HS PRN 01/12/14 12/17/19 History Meloxicam 7.5 mg PO DAILY 01/12/14 12/17/19 History Glucosam/Amador-Msm1/C/Julio/Bosw 1 tab PO DAILY 06/24/17 12/17/19 History [Glucosamine-Chondroitin Tablet] Cholecalciferol [Vitamin D3 (25 1,000 unit PO DAILY 03/03/19 12/17/19 History Mcg = 1000 Iu)] Gentle Iron 28 1 cap PO DAILY 03/03/19 12/17/19 History Magnesium Gluconate 100mg 100 mg PO DAILY 03/03/19 12/17/19 History Turmeric Root Extract [Turmeric] 500 mg PO DAILY 03/03/19 12/17/19 History Apixaban [Eliquis] 5 mg PO BID #60 tab 03/05/19 12/17/19 Rx Multivitamins, Thera [Multivitamin 1 tab PO DAILY 04/20/19 12/17/19 History (formulary)] Diltiazem Cd [Cardizem CD] 180 mg PO QAM 10/30/19 12/17/19 History Flecainide Acetate [Tambocor] 100 mg PO BID 12/17/19 12/17/19 History prednisoLONE ACETATE 1% OPHTH 1 drops BOTH EYES HS PRN 12/17/19 12/17/19 History [Pred Forte 1%] Allergies Allergy/AdvReac Type Severity Reaction Status Date / Time Penicillins Allergy Severe Rash/Hives Verified 12/17/19 16:32 anidulafungin AdvReac Chest Pain Verified 12/17/19 16:32 benzonatate AdvReac Dyspnea Verified 12/17/19 16:32 [From Harper Yanez] Physical Exam Vitals: Vital Signs Temp Pulse Pulse Pulse Resp BP BP 12/18/19 09:11 98.1 F 86 18 111/79 12/18/19 03:25 98.0 F 90 18 106/63 12/18/19 03:00 90 18 12/17/19 20:53 86 18 12/17/19 20:50 97.9 F 86 18 106/63 12/17/19 18:15 98.0 F 78 16 144/84 12/17/19 17:46 97.9 F 75 14 112/71 12/17/19 16:21 97.6 F 65 14 112/71 12/17/19 15:41 97.9 F 68 14 121/78 12/17/19 14:27 97.9 F 72 14 121/78 12/17/19 14:06 73 12/17/19 13:59 98.0 F 80 18 114/80 Pulse Ox 12/18/19 09:11 96 12/18/19 03:25 94 L 12/18/19 03:00 12/17/19 20:53 12/17/19 20:50 97 12/17/19 18:15 98 12/17/19 17:46 98 12/17/19 16:21 99 12/17/19 15:41 98 12/17/19 14:27 98 12/17/19 14:06 12/17/19 13:59 98 Intake and Output 12/17/19 12/18/19 12/18/19 22:59 06:59 14:59 Other: Voiding Method Toilet Toilet Toilet # Voids 1 1 Weight 95.254 kg - Constitutional General appearance: cooperative, no acute distress - EENT Eyes: EOMI, PERRLA ENT: NA/AT, normal oropharynx - Neck Submandibular LN palpable Neck: lymphadenopathy - Respiratory Respiratory: bilateral: CTA - Cardiovascular Rhythm: regular Heart sounds: normal: S1, S2 - Gastrointestinal General gastrointestinal: normal bowel sounds, soft - Integumentary Integumentary: pale - Neurologic Neurologic: CNII-XII intact - Musculoskeletal Musculoskeletal: generalized weakness, strength equal bilaterally - Psychiatric Psychiatric: A&O x's 3, appropriate affect Results CBC & Chem 7: 12/18/19 12:51 12/18/19 12:51 Labs: Abnormal Lab Results - Last 24 Hours (Table) 12/17/19 12/17/19 Range/Units 14:44 14:44 WBC 15.3 H (3.8-10.6) k/uL Neutrophils # 11.4 H (1.3-7.7) k/uL Sodium 134 L (137-145) mmol/L ALT 100 H (4-49) U/L Alkaline Phosphatase 245 H (38-126) U/L Microbiology - Last 24 Hours (Table) 12/17/19 14:44 Group A Strep Throat Culture - Preliminary Throat CT scan - abdomen: report reviewed CT scan - chest: report reviewed CT scan - pelvis: report reviewed Assessment and Plan (1) History of lymphoma Status: Acute Code(s): Z85.79 - PRSNL HX OF [facility] OF LYMPHOID, HEMATPOETC & REL TISS SNOMED Code(s): 772007131 (2) Leukocytosis Status: Acute Priority: High Code(s): D72.829 - ELEVATED WHITE BLOOD CELL COUNT, UNSPECIFIED SNOMED Code(s): 701433717 (3) Pharyngitis Status: Acute Code(s): J02.9 - ACUTE PHARYNGITIS, UNSPECIFIED SNOMED Code(s): 548165589 Plan: History of Mantle Cell Lymphoma: - Review of CT and appears to have small lymph node which is likely reactive to acute infection/Inflammation - Treatment per priamry team and if persists follow-up prior to January FOllowup with primary oncologist URI/Sinus infection: - Treatment per primary team Leukocytosis: - Reactive to acute infection/Steroids PLan: - Check LDH, Uric Acid Physician Attest: I have completed the full history and physcial and agree with above, dictated as a scribe
[2019-12-18] MEDS: FLECAINIDE 50 MG TAB PO SCH (12:51)
[2019-12-18] MEDS: APIXABAN 5 MG TAB PO SCH (12:51)
[2019-12-18 13:06] LABS: Basophils # (A) 0.1 k/uL (0-0.2); Basophils % (A) 1 %; Eosinophils # (A) 0.3 k/uL (0-0.7); Eosinophils % (A) 2 %; HCT 44.7 % (39.0-53.0); HGB 14.6 gm/dL (13.0-17.5); Lymphocytes # (A) 1.8 k/uL (1.0-4.8); Lymphocytes % (A) 13 %; MCH 31.2 pg (25.0-35.0); MCHC 32.6 g/dL (31.0-37.0); MCV 95.7 fL (80.0-100.0); Mean Platelet Volume 8.5; Monocytes # (A) 0.6 k/uL (0-1.0); Monocytes % (A) 4 %; Neutrophils # (A) 10.8 k/uL (1.3-7.7); Neutrophils % (A) 79 %; Platelet Count 435 k/uL (150-450); RBC 4.67 m/uL (4.30-5.90); WBC 13.8 k/uL (3.8-10.6)
[2019-12-18 13:16] LABS: Albumin 3.8 g/dL (3.5-5.0); Calcium 9.2 mg/dL (8.4-10.2); Phosphorus 3.7 mg/dL (2.5-4.5); Potassium 4.7 mmol/L (3.5-5.1); Total Bilirubin 0.8 mg/dL (0.2-1.3); Total Protein 6.9 g/dL (6.3-8.2); Uric Acid 5.8 mg/dL (3.5-8.5)
--- NOTE | 2019-12-18 13:26 | NM ---
EXAMINATION TYPE: NM stress lexiscan cardiolite DATE OF EXAM: 12/18/2019 COMPARISON: NONE HISTORY: Chest pain TECHNIQUE: After the intravenous administration of 10.0 mCi Tc 99m Sestamibi - Cardiolite resting SP ECT images acquired 45 minutes post injection. The patient received 0.4mg Lexiscan, 24.9 mCi Tc 99m Sestamibi - Stress images obtained [address] injection FINDINGS: Review of stress and rest SPECT images demonstrates no distinct perfusion abnormality. Apical thinni ng. Gated analysis shows normal wall motion with an estimated left ventricular ejection fraction of 4 9 %. TID 1.09 IMPRESSION: No scintigraphic evidence for reversible ischemia.
--- NOTE | 2019-12-18 13:27 | P.PN ---
Subjective Progress Note Date: 12/18/19 HISTORY OF PRESENT ILLNESS 74-year-old male one of my office patient who seen oncology and cardiology regular basis known to have history of A. fib, history of mental lymphoma, basal cell carcinoma along with BPH and recurrent episode of reactive airway/COPD/asthma, patient is on anticoagulation director long term care also he is on flecainide for A. fib with RVR with pulse rates under control lately. Patient was seen in the office recently for recent URI was giving azithromycin return few days later with worsening symptom associated with worsening sore throat and mild odynophagia, we'll patient was giving steroid Dosepak did not improve his symptoms become much worse lately has been having significant shortness of breath since 2 AM in the morning worsening with exertion his symptom are a lot worse when laying down chest pain is midsternal radiating toward the left side of his jaw standing up with have his symptoms felt little bit better. Patient ended up coming to the emergency department with high suspicion for dissected thoracic aneurysm CT was done and showed ascending aortic aneurysm has not been seen previously in and CAT scan size of aneurysm was 4.2 with no sign of dissection. Also the previous incidental of gallstone was found as well with no other major abnormality. CT of the neck and cervical spine shows large lymph node along with mucosal retention and sinus especially the left mastoid consistent with mastoiditis. Patient was admitted to the hospital will be seen cardiology and possibly needed thoracic esophageal echocardiogram to determine on the size and association with the ascending aortic aneurysm. Also patient has been followed by oncology for the mental cell lymphoma with no recent pharyngeal scope her testing done we will consider consult ENT for scope and possible biopsy from the cervical spine area. 12/17: Patient has been seen by cardiology and underwent Lexiscan stress test. Echocardiogram has been obtained and report is pending. There are also consult in place with oncology and ENT. Patient denies any new complaints. He states he did have some chest pain on the left side. He slept okay during the night. His hotbed transfer operator is Dr. Panda. He has been afebrile, heart rate 86, blood pressure 111/79, pulse ox 96% on room air. Repeat blood work reveals WBC 13.8, hemoglobin 14.6. Electrolytes and renal function normal. Blood sugar 116. ALT 88, alkaline phosphatase 251. Troponins are negative on 3 draws. REVIEW OF SYSTEMS CONSTITUTIONAL: Well-developed no distress. No fever EYES: No icterus sclerae, no conjunctivitis. EARS, NOSE, MOUTH, THROAT, and FACE: Positive sore throat with lymph node enlargement in the cervical area.. RESPIRATORY: Positive chest pain with mild shortness of breath cough wheezes. CARDIOVASCULAR: Positive CP, Palpitation, PND, Orthopnea, or angina. GASTROINTESTINAL: No Abd pain, Nausea or vomiting, no Diarrhea or constipation, No GI Bleed, no distention or masses. GENITOURINARY: Negative for Hematuria or UTI, no kidney stones. INTEGUMENT/BREAST: Negative for any muscular injury with mild osteoarthritis.. HEMATOLOGIC/LYMPHATIC: History of lymphoma and recurrent anemia.. MUSCULOSKELTAL: Negative for Myalgia or arthralgia. NEURLOGICAL: No LOC, Sz or syncope, blurred vision dizziness or abnormality.. BEHAVIORAL/PSYCH: Negative. ENDOCRINE: Negative. PHYSICAL EXAMINATION General Appearance: Alert, cooperative, no distress, appears stated age. No acute distress. Neck HEENT: Supple, positive large lymph node in the cervical area especially the left compared to the right no thyroid enlargement. Lungs: Decreased breath some bilateral fine rhonchi mild expiratory wheezes no crackles. Chest Wall: Decrease expansion with deep inspiration no tenderness and no deformity was found on exam, no costochondral pain or discomfort. Heart: Irregular rate and rhythm, S1, S2 normal, no murmur, rub or gallop. Back: Symmetric, no curvature, ROM normal, no CVA tenderness. Abdomen: Soft, non-tender, bowel sounds active all four quadrants, no masses, positive mild splenomegaly and hepatomegaly Extremities: Extremities normal, atraumatic, no cyanosis or edema. Pulses: 2+ and symmetric. Skin: Skin color, texture, tugor normal, no rashes or lesions. Neurologic: Alert oriented x3 cranial nerves II through XII intact, no motor deficit, no abnormal balance or gait. ASSESSMENT AND PLAN 1 recurrent chest pain with worsening symptom laying down and exertion then standing up, not a clear etiology at this point CK with troponin will be done repeat EKG and consult cardiology appreciated. Lexiscan stress test, echocardiogram. 2 large ascending thoracic aneurysm with no dissection size 4.2 cm surprisingly not found in all testing patient might benefit from going for transesophageal echocardiogram for better diagnosis. Awaiting echocardiogram. 3 cervical lymph node enlargement: With the possibility of recurrent mantle cell lymphoma biopsy of the cervical spine might be recommended. Oncology consult. 4 odynophagia: ENT consultation and possible need for pharyngeal scope looking for any significant finding and biopsy from the back of his throat. 5 reactive airway/asthma: Patient can benefit from being on DuoNeb and Pulmicort no steroid needed this point. 6 paroxysmal atrial fibrillation: Has been doing very well on flecainide still on anticoagulation with Eliquis 5 mg twice a day. Continue diltiazem as well. 7 severe GERD/GI prophylaxis: Patient will be on pantoprazole. 8 DVT prophylaxis: Patient is on Eliquis 5 mg twice a day. CODE STATUS: Full code. DISCHARGE PLAN Home Impression and plan of care have been directed as dictated by the signing physi cian. Gianna Silver nurse practitioner acting as scribe for signing physician. Objective - Vital Signs Vital signs: Vital Signs Temp 98.0 F 12/18/19 03:25 Pulse 90 12/18/19 03:25 Resp 18 12/18/19 03:25 BP 106/63 12/18/19 03:25 Pulse Ox 94 L 12/18/19 03:25 Intake & Output 12/17/19 12/18/19 12/18/19 18:59 06:59 18:59 Weight 95.254 kg Other: Voiding Method Toilet # Voids 1 1 - Labs CBC & Chem 7: 12/18/19 12:51 12/18/19 12:51 Labs: Abnormal Lab Results - Last 24 Hours (Table) 12/17/19 12/17/19 Range/Units 14:44 14:44 WBC 15.3 H (3.8-10.6) k/uL Neutrophils # 11.4 H (1.3-7.7) k/uL Sodium 134 L (137-145) mmol/L ALT 100 H (4-49) U/L Alkaline Phosphatase 245 H (38-126) U/L Microbiology - Last 24 Hours (Table) 12/17/19 14:44 Group A Strep Throat Culture - Preliminary Throat
--- NOTE | 2019-12-18 14:36 | P.CRDCN ---
History of Present Illness Consult date: 12/18/19 History of present illness: CHIEF COMPLAINT: Chest pain HISTORY OF PRESENT ILLNESS: This is a 74-year old male with a past medical history significant for atrial fibrillation with previous cardioversion. Patient follows in the office with Dr. Panda. We have been asked to see the patient in consultation for chest pain. Patient states about a week ago he began having a sore throat, fever, and some chest discomfort. He was evaluated in the emergency room and discharged home. He states a couple days ago he had the same symptoms sensation in his chest and felt chest pressure. He denies any radiation to his arm and jaw or back. Denies nausea or vomiting. No diaphoresis. Denies shortness of breath. Patient continues to complain of a sore throat and states he is supposed to see an ENT doctor for this. 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 Patient reports his mom from a AAA. Patient had a nuclear Cardiolite stress test performed in March 2019 revealing normal myocardial perfusion imaging with a fixed inferior and inferior apical wall defect. No evidence of stress-induced ischemia. DIAGNOSTICS: EKG reveals sinus rhythm Chest xray negative for acute process Laboratory data: WBC 15.3. Hemoglobin 13.2. Platelet count 371. Sodium 134. Potassium 4.4. BUN 20. Creatinine 0.99. Magnesium 2.3. Current home cardiac medications include flecainide 100 mg twice a day, Cardizem 180mg daily, and Eliquis 5 mg twice a day REVIEW OF SYSTEMS: At the time of my exam: CONSTITUTIONAL: Denies fever or chills. HEENT: Denies blurred vision, vision changes, or eye pain. Denies hemoptysis. Reports sore throat 1 week CARDIOVASCULAR: Denies chest pain, orthopnea, PND or palpitations RESPIRATORY: No shortness of breath. GASTROINTESTINAL: Denies abdominal pain. Denies nausea or vomiting. HEMATOLOGIC: Denies bleeding disorders. GENITOURINARY: Denies any blood in urine. SKIN: Denies pruitis. Denies rash. PHYSICAL EXAM: VITAL SIGNS: Reviewed. GENERAL: Well-developed in no acute distress. HEENT: Head is normocephalic. Pupils are equal, round. Sclerae anicteric. Mucous membranes of the mouth are moist. Neck supple. No JVD or thyromegaly LUNGS: Respirations even and unlabored. Lungs essentially clear to auscultation bilaterally. HEART: Regular rate and rhythm. S1 and S2 heard. ABDOMEN: Soft. Nondistended. Nontender. EXTREMITIES: Normal range of motion. No clubbing or cyanosis. Peripheral pulses intact. No lower extremity edema NEUROLOGIC: Awake and alert. Oriented x 3. 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 No acute intervention recommended. Obtain Lexiscan stress test to assess for reversible ischemia Nurse practitioner note has been reviewed by physician. Signing provider agrees with the documented findings, assessment, and plan of care. Past Medical History Past Medical History: Atrial Fibrillation, Cancer, Osteoarthritis (OA) Additional Past Medical History / Comment(s): Mantle Lymphoma, Basal Cell Carcinoma Oct 2012 (in remission), hx Bronchitis. History of Any Multi-Drug Resistant Organisms: None Reported Past Surgical History: Hernia Repair, Joint Replacement Additional Past Surgical History / Comment(s): Removal of skin cancer, bone marrow transplant, right knee replacement Past Anesthesia/Blood Transfusion Reactions: No Reported Reaction Past Psychological History: No Psychological Hx Reported Additional Psychological History / Comment(s): Pt resides with his spouse. He has a nebulizer. He is independent. Smoking Status: Never smoker Past Alcohol Use History: Occasional Additional Past Alcohol Use History / Comment(s): Patient is a lifelong nonsmoker, no marijuana, no illicit drug use, he drinks alcohol 2-3 drinks on the weekend. He lives at home with his . 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 He does not require a walker. He does have a nebulizer at home. He does not have oxygen, no CPAP. Past Drug Use History: None Reported - Past Family History Brother(s) Family Medical History: Cancer Additional Family Medical History / Comment(s): Patient has 2 brothers and both have passed one from multiple myeloma and one had CLL and multiple problems from obesity. Father Family Medical History: No Reported History Additional Family Medical History / Comment(s): Father was healthy and lived to be 95 yrs old. Mother Family Medical History: Vascular Disorder Additional Family Medical History / Comment(s): Mother at the age of 74 yrs from a ruptured aortic aneurysm. Son(s) Additional Family Medical History / Comment(s): Patient has 2 sons with no major medical problems. Patient doesn't have any sisters. Medications and Allergies Home Medications Medication Instructions Recorded Confirmed Type ALPRAZolam [Xanax] 0.25 mg PO HS PRN 01/12/14 12/17/19 History Meloxicam 7.5 mg PO DAILY 01/12/14 12/17/19 History Glucosam/Amador-Msm1/C/Julio/Bosw 1 tab PO DAILY 06/24/17 12/17/19 History [Glucosamine-Chondroitin Tablet] Cholecalciferol [Vitamin D3 (25 1,000 unit PO DAILY 03/03/19 12/17/19 History Mcg = 1000 Iu)] Gentle Iron 28 1 cap PO DAILY 03/03/19 12/17/19 History Magnesium Gluconate 100mg 100 mg PO DAILY 03/03/19 12/17/19 History Turmeric Root Extract [Turmeric] 500 mg PO DAILY 03/03/19 12/17/19 History Apixaban [Eliquis] 5 mg PO BID #60 tab 03/05/19 12/17/19 Rx Multivitamins, Thera [Multivitamin 1 tab PO DAILY 04/20/19 12/17/19 History (formulary)] Diltiazem Cd [Cardizem CD] 180 mg PO QAM 10/30/19 12/17/19 History Flecainide Acetate [Tambocor] 100 mg PO BID 12/17/19 12/17/19 History prednisoLONE ACETATE 1% OPHTH 1 drops BOTH EYES HS PRN 12/17/19 12/17/19 History [Pred Forte 1%] Allergies Allergy/AdvReac Type Severity Reaction Status Date / Time Penicillins Allergy Severe Rash/Hives Verified 12/17/19 16:32 anidulafungin AdvReac Chest Pain Verified 12/17/19 16:32 benzonatate AdvReac Dyspnea Verified 12/17/19 16:32 [From Harper Yanez] Physical Exam Vitals: Vital Signs Temp Pulse Pulse Pulse Resp BP BP 12/18/19 03:25 98.0 F 90 18 106/63 12/18/19 03:00 90 18 12/17/19 20:53 86 18 12/17/19 20:50 97.9 F 86 18 106/63 12/17/19 18:15 98.0 F 78 16 144/84 12/17/19 17:46 97.9 F 75 14 112/71 12/17/19 16:21 97.6 F 65 14 112/71 12/17/19 15:41 97.9 F 68 14 121/78 12/17/19 14:27 97.9 F 72 14 121/78 12/17/19 14:06 73 12/17/19 13:59 98.0 F 80 18 114/80 Pulse Ox 12/18/19 03:25 94 L 12/18/19 03:00 12/17/19 20:53 12/17/19 20:50 97 12/17/19 18:15 98 12/17/19 17:46 98 12/17/19 16:21 99 12/17/19 15:41 98 12/17/19 14:27 98 12/17/19 14:06 12/17/19 13:59 98 Intake and Output 12/17/19 12/18/19 12/18/19 22:59 06:59 14:59 Other: Voiding Method Toilet Toilet # Voids 1 1 Weight 95.254 kg Results 12/18/19 12:51 12/18/19 12:51 Cardiac Enzymes 12/17/19 12/17/19 12/17/19 Range/Units 14:44 14:44 18:35 AST 41 (17-59) U/L Troponin I <0.012 <0.012 (0.000-0.034) ng/mL 12/17/19 Range/Units 20:52 AST (17-59) U/L Troponin I <0.012 (0.000-0.034) ng/mL Coagulation 12/17/19 Range/Units 14:44 PT 9.8 (9.0-12.0) sec APTT 30.0 (22.0-30.0) sec CBC 12/17/19 Range/Units 14:44 WBC 15.3 H (3.8-10.6) k/uL RBC 4.31 (4.30-5.90) m/uL Hgb 13.2 (13.0-17.5) gm/dL Hct 40.3 (39.0-53.0) % Plt Count 371 (150-450) k/uL Comprehensive Metabolic Panel 12/17/19 Range/Units 14:44 Sodium 134 L (137-145) mmol/L Potassium 4.4 (3.5-5.1) mmol/L Chloride 101 (98-107) mmol/L Carbon Dioxide 26 (22-30) mmol/L BUN 20 (9-20) mg/dL Creatinine 0.99 (0.66-1.25) mg/dL Glucose 93 (74-99) mg/dL Calcium 8.6 (8.4-10.2) mg/dL AST 41 (17-59) U/L ALT 100 H (4-49) U/L Alkaline Phosphatase 245 H (38-126) U/L Total Protein 6.5 (6.3-8.2) g/dL Albumin 3.5 (3.5-5.0) g/dL Current Medications Generic Name Dose Route Start Last Admin Trade Name Freq PRN Reason Stop Dose Admin Acetaminophen 650 mg 12/17/19 17:03 Acetaminophen Tab 325 Mg Tab PO Q6HR PRN Mild Pain or Fever > 100.5 Alprazolam 0.25 mg 12/17/19 17:05 Alprazolam 0.25 Mg Tab PO HS PRN Anxiety Apixaban 5 mg 12/17/19 21:00 12/17/19 20:46 Apixaban 5 Mg Tab PO 5 mg BID GREYSON Administration Diltiazem HCl 180 mg 12/18/19 09:00 Diltiazem Cd 180 Mg Cap.Er.24h PO QAM GREYSON Flecainide Acetate 100 mg 12/17/19 21:00 12/17/19 20:46 Flecainide 50 Mg Tab PO 100 mg BID GREYSON Administration Magnesium Oxide 400 mg 12/18/19 09:00 Magnesium Oxide 400 Mg Tab PO DAILY GREYSON Morphine Sulfate 4 mg 12/17/19 17:03 Morphine Sulfate 4 Mg/Ml Syringe IV Q4HR PRN Severe Pain Naloxone HCl 0.2 mg 12/17/19 17:03 Naloxone 0.4 Mg/Ml 1 Ml Vial IV Q2M PRN Opioid Reversal Prednisolone Acetate 1 drops 12/17/19 17:05 Prednisolone Acetate 1% Ophth Drops 5 Ml Btl BOTH EYES HS PRN Eye Irritation Intake and Output 12/17/19 12/18/19 12/18/19 22:59 06:59 14:59 Other: Voiding Method Toilet Toilet # Voids 1 1 Weight 95.254 kg 12/17/19 14:44 12/17/19 14:44
--- NOTE | 2019-12-18 15:02 | P.DS ---
Providers Date of admission: 12/18/19 08:25 Expected date of discharge: 12/18/19 Attending physician: Libby Vizcaino Consults: 12/17/19 19:11 Consult Physician Routine Consulting Provider: Fabian Guzman Consult Reason/Comments: Lymphoma with Enlarged Cervical Lymph node Do you want consulting provider notified?: Yes 12/17/19 19:12 Consult Physician Routine Consulting Provider: Arturo Banks Consult Reason/Comments: Odynophagia Do you want consulting provider notified?: Yes Primary care physician: [facility] Course: HISTORY OF PRESENT ILLNESS 74-year-old male one of my office patient who seen oncology and cardiology regular basis known to have history of A. 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 fib with RVR with pulse rates under control lately. Patient was seen in the office recently for recent URI was giving azithromycin return few days later with worsening symptom associated with worsening sore throat and mild odynophagia, we'll patient was giving steroid Dosepak did not improve his symptoms become much worse lately has been having significant shortness of breath since 2 AM in the morning worsening with exertion his symptom are a lot worse when laying down chest pain is midsternal radiating toward the left side of his jaw standing up with have his symptoms felt little bit better. Patient ended up coming to the emergency department with high suspicion for dissected thoracic aneurysm CT was done and showed ascending aortic aneurysm has not been seen previously in and CAT scan size of aneurysm was 4.2 with no sign of dissection. Also the previous incidental of gallstone was found as well with no other major abnormality. CT of the neck and cervical spine shows large lymph node along with mucosal retention and sinus especially the left mastoid consis tent with mastoiditis. Patient was admitted to the hospital will be seen cardiology and possibly needed thoracic esophageal echocardiogram to determine on the size and association with the ascending aortic aneurysm. Also patient has been followed by oncology for the mental cell lymphoma with no recent pharyngeal scope her testing done we will consider consult ENT for scope and possible biopsy from the cervical spine area. 12/17: Patient has been seen by cardiology and underwent Lexiscan stress test. Echocardiogram has been obtained and report is pending. There are also consult in place with oncology and ENT. Dr. Mayo will see in the outpatient setting. Patient denies any new complaints. He states he did have some chest pain on the left side. He slept okay during the night. His learning facilitator is Dr. Panda. He has been afebrile, heart rate 86, blood pressure 111/79, pulse ox 96% on room air. Repeat blood work reveals WBC 13.8, hemoglobin 14.6. Electrolytes and renal function normal. Blood sugar 116. ALT 88, alkaline phosphatase 251. Troponins are negative on 3 draws. Lexiscan stress test was negative for reversible ischemia and patient was clear by cardiology for discharge home. Patient was discharged home in stable condition. ASSESSMENT AND PLAN 1 recurrent chest pain with worsening symptom laying down and exertion then standing up, not a clear etiology. Acute coronary syndrome ruled out. 2 large ascending thoracic aneurysm with no dissection size 4.2 cm. 3 cervical lymph node enlargement: With the possibility of recurrent mantle cell lymphoma. 4 odynophagia. 5 reactive airway. 6 paroxysmal atrial fibrillation. 7 severe GERD. DISCHARGE PLAN Home Impression and plan of care have been directed as dictated by the signing physician. Gianna Silver nurse practitioner acting as scribe for signing physician. Patient Condition at Discharge: Good Plan - Discharge Summary Discharge Rx Participant: No New Discharge Prescriptions: Continue RX: Meloxicam 7.5 mg PO DAILY RX: ALPRAZolam [Xanax] 0.25 mg PO HS PRN PRN Reason: Anxiety RX: Glucosam/Amador-Msm1/C/Julio/Bosw [Glucosamine-Chondroitin Tablet] 1 tab PO DAILY Gentle Iron 28 1 cap PO DAILY Magnesium Gluconate 100mg 100 mg PO DAILY RX: Turmeric Root Extract [Turmeric] 500 mg PO DAILY RX: Cholecalciferol [Vitamin D3 (25 Mcg = 1000 Iu)] 1,000 unit PO DAILY RX: Apixaban [Eliquis] 5 mg PO BID #60 tab RX: Multivitamins, Thera [Multivitamin (formulary)] 1 tab PO DAILY RX: Diltiazem Cd [Cardizem CD] 180 mg PO QAM RX: prednisoLONE ACETATE 1% OPHTH [Pred Forte 1%] 1 drops BOTH EYES HS PRN PRN Reason: Eye Irritation RX: Flecainide Acetate [Tambocor] 100 mg PO BID Discharge Medication List RX: ALPRAZolam [Xanax] 0.25 mg PO HS PRN 01/12/14 [History] RX: Meloxicam 7.5 mg PO DAILY 01/12/14 [History] RX: Glucosam/Amador-Msm1/C/Julio/Bosw [Glucosamine-Chondroitin Tablet] 1 tab PO DAILY 06/24/17 [History] Gentle Iron 28 1 cap PO DAILY 03/03/19 [History] Magnesium Gluconate 100mg 100 mg PO DAILY 03/03/19 [History] RX: Cholecalciferol [Vitamin D3 (25 Mcg = 1000 Iu)] 1,000 unit PO DAILY 03/03/19 [History] RX: Turmeric Root Extract [Turmeric] 500 mg PO DAILY 03/03/19 [History] RX: Apixaban [Eliquis] 5 mg PO BID #60 tab 03/05/19 [Rx] RX: Multivitamins, Thera [Multivitamin (formulary)] 1 tab PO DAILY 04/20/19 [History] RX: Diltiazem Cd [Cardizem CD] 180 mg PO QAM 10/30/19 [History] RX: Flecainide Acetate [Tambocor] 100 mg PO BID 12/17/19 [History] RX: prednisoLONE ACETATE 1% OPHTH [Pred Forte 1%] 1 drops BOTH EYES HS PRN 12/17/19 [History] Follow up Appointment(s)/Referral(s): Vidhi Panda MD [STAFF PHYSICIAN] - 12/21/19 9:45 am Hemanth Meza MD [Primary Care Provider] - 1 Week Akshat Mayo MD [STAFF PHYSICIAN] - 1 Week Chris Gan MD [STAFF PHYSICIAN] - As Needed (Keep same appointment as scheduled) Patient Instructions/Handouts: Chest Pain (DC) Discharge Disposition: HOME SELF-CARE
--- NOTE | 2019-12-18 17:07 | P.STRESS ---
- Stress Test Note Stress Test Results/Findings: Exam Performed: NM stress lexiscan cardiolite Exam Date: 12/18/19 Reason for Exam: CHEST PAIN Height: 6 ft 2 in Weight: 95.25 kg Protocol: LEXISCAN Stage: N/A Duration of Exercise: 6 MINUTES Resting Heart Rate: 71 Resting Blood Pressure: 127/83 Maximum Achieved Heart Rate: 97 Maximum Achieved Blood Pressure: 127/83 85% PMHR: 126 100% PMHR: 148 METS: N/A Technologist Comment: Stress Test Results/Findings: At baseline EKG showed normal sinus rhythm, normal axis, no significant ST or T- wave abnormalities. Patient recieved IV infusion of Lexiscan 0.4mg and at peak infusion EKG showed no significant change from baseline. Conclusions: 1. Normal EKG response to Lexiscan infusion 2. Nuclear imaging to be reported separately.
[2019-12-18 17:09] VITALS: BP 112/63; PULSE 94; RESP 16; TEMP 98
--- NOTE | 2019-12-19 05:00 | ECHOF ---
Referral Reason:cp MEASUREMENTS -------- HEIGHT: 188.0 cm WEIGHT: 95.3 kg BP: RVIDd: 3.4 cm (< 3.3) IVSd: 1.7 cm (0.6 - 1.1) LVIDd: 3.6 cm (3.9 - 5.3) LVPWd: 1.7 cm (0.6 - 1.1) IVSs: 2.1 cm LVIDs: 2.8 cm LVPWs: 2.1 cm LAESV Index (A-L): 35.13 ml/m Ao Diam: 4.2 cm (2.0 - 3.7) AV Cusp: 2.8 cm (1.5 - 2.6) MV EXCURSION: 12.324 mm (> 18.000) MV EF SLOPE: 54 mm/s (70 - 150) EPSS: 0.9 cm MV E Juan Luis: 0.41 m/s MV DecT: 153 ms MV A Juan Luis: 0.74 m/s MV E/A Ratio: 0.56 AR PHT: 806 ms RAP: 5.00 mmHg RVSP: 22.55 mmHg FINDINGS -------- This was a technically adequate study. The left ventricular size is normal. There is moderate concentric left ventricular hypertrophy. O verall left ventricular systolic function is mild-moderately impaired with, an EF between 40 - 45 %. Mitral Doppler inflow pattern suggests diastolic filling abnormality 10.25. The right ventricle is mildly enlarged. LA is moderately dilated 34-39 ml/m2 The right atrial size is normal. Interatrial and interventricular septum intact. The aortic valve is trileaflet and appears structurally normal. There is mild aortic regurgitation. There is no evidence of aortic stenosis. Ktpa-nv-lvdwubnj mitral regurgitation is present. Mild tricuspid regurgitation present. There is no evidence of pulmonary hypertension. The right v entricular systolic pressure, as measured by Doppler, is 22.55mmHg. Trace/mild (physiologic) pulmonic regurgitation. The aortic root size is normal. The inferior vena cava is mildly dilated. There is no pericardial effusion. CONCLUSIONS -------- 1. The left ventricular size is normal. 2. There is moderate concentric left ventricular hypertrophy. 3. Overall left ventricular systolic function is mild-moderately impaired with, an EF between 40 - 45 %. 4. Mitral Doppler inflow pattern suggest diastolic filling abnormality 10.25. 5. The right ventricle is mildly enlarged. 6. LA is moderately dilated 34-39 ml/m2 7. There is mild aortic regurgitation. 8. Thvq-rf-sjodakpo mitral regurgitation is present. 9. Mild tricuspid regurgitation present. 10. Trace/mild (physiologic) pulmonic regurgitation. VICE PRESIDENT OF NEWS: Franny Storey RDCS
--- NOTE | 2019-12-22 11:01 | CDI ---
Documentation Clarification Form Date: 12/22/19 From: Kaitlyn Aldrich Phone: If you have a question about this query, please contact Gema Hernandez, Cloth Sander at [phone] between 8am and 5pm. Admit Date: 12/18/19 Discharge Date: 12/18/19 Patient Name: MUNIRA LYON Visit Number: [id number] ATTENTION: The Clinical Documentation Specialists (CDI) and [facility] Coding Staff appreciate your assistance in clarifying documentation. Please respond to the clarification below the line at the bottom and electronically sign. The CDI & [facility] Coding staff will review the response and follow-up if needed. Please note: Queries are made part of the Legal Health Record. If you have any questions, please contact the author of this message via ITS. Dear Dr. Hemanth Meza, Conflicting documentation has been found in the medical record: Per DS you state: "cervical lymph node enlargement: With the possibility of recurrent mantle cell lymphoma". Per Dr Guzman's consult: History of Mantle Cell Lymphoma: - Review of CT and appears to have small lymph node which is likely reactive to acute infection/Inflammation". History/Risk Factors: bone marrow transplant, hepatomegaly/splenomegaly, thoracic AA, mastoiditis left ear, PAF, COPD, acute pharyngitis, chest pain, dysphagia Clinical Indicators: Palpable adenopathy and with his history of lymphoma we (Oncology) were asked to further evaluate. CT thorax abdomen and pelvis as well as neck which did not reveal any new areas of adenopathy. Treatment: Per primary team and if persists follo-up prior to January follow-up with primary oncologist. In your opinion, what is the most clinically appropriate diagnosis for this patient? xx Recurrence of mantle cell lymphoma No recurrence of mantle cell lymphoma, reactive to acute infection/inflammation Other explanation of clinical findings Unable to determine (no explanation for clinical findings) MTDD
== END 2019-12-18 18:35 | disposition home or self-care (01) ==
LOC: EC 13:58 → 3NCARDOBS 17:04 → OBSVTOIN 12-18 08:25 → INTOOBSV 12-18 08:25 → UNDODISIN 12-18 18:35
PROVIDERS: ADMIT Family Medicine; ATTEND Family Medicine
DX: R07.89 Other chest pain (principal); I71.2 Thoracic aortic aneurysm, without rupture; R59.0 Localized enlarged lymph nodes; R13.10 Dysphagia, unspecified; J44.9 Chronic obstructive pulmonary disease, unspecified; K21.9 Gastro-esophageal reflux disease without esophagitis; M54.2 Cervicalgia; I48.0 Paroxysmal atrial fibrillation; C83.10 Mantle cell lymphoma, unspecified site; M19.90 Unspecified osteoarthritis, unspecified site; N40.0 Benign prostatic hyperplasia without lower urinary tract symptoms; J02.9 Acute pharyngitis, unspecified; H74.92 Unspecified disorder of left middle ear and mastoid; Z79.01 Long term (current) use of anticoagulants; Z79.1 Long term (current) use of non-steroidal anti-inflammatories (NSAID); Z79.899 Other long term (current) drug therapy; Z79.52 Long term (current) use of systemic steroids; Z88.0 Allergy status to penicillin; Z88.8 Allergy status to other drugs, medicaments and biological substances; Z85.828 Personal history of other malignant neoplasm of skin; Z87.09 Personal history of other diseases of the respiratory system; Z87.19 Personal history of other diseases of the digestive system; Z98.890 Other specified postprocedural states; Z96.651 Presence of right artificial knee joint; Z94.81 Bone marrow transplant status; Z92.21 Personal history of antineoplastic chemotherapy; Z86.2 Personal history of diseases of the blood and blood-forming organs and certain disorders involving the immune mechanism; Z80.7 Family history of other malignant neoplasms of lymphoid, hematopoietic and related tissues; Z83.49 Family history of other endocrine, nutritional and metabolic diseases; Z82.49 Family history of ischemic heart disease and other diseases of the circulatory system
CPT/HCPCS: 93005 ×2; 99285; 36415; 93017; 93306; 80053 ×2; 83615; 83735; 84100; 84550; 84484; 85025 ×2; 85610; 85730; 86308; 87081; 87430; 71046; 70491; 71275; 74174; 78452; G0378 ×2; A9500; J2785; Q9967

== ENCOUNTER → 2020-01-04 | Outpatient (CLI) | payer MEDICARE ==
--- NOTE | 2020-01-04 14:39 | CT ---
EXAMINATION TYPE: CT ChestAbdPelvis w con DATE OF EXAM: 01/04/2020 COMPARISON: Prior CT aorta December 17, 2019 and older studies. HISTORY: Follow up scan non-Hodgkin lymphoma diagnosed 2012 [address] DLP: 1524.9 mGycm. Automated Exposure Control for Dose Reduction was Utilized. CONTRAST: CT scan of the thorax, abdomen and pelvis is performed with oral and rwith IV Contrast, patient injec eric with 100 mL of Isovue 300. FINDINGS: LUNGS: The lungs remain grossly clear, there is no concerning new parenchymal mass or nodule identifi ed. There is no pleural effusion or pneumothorax seen. The tracheobronchial tree is patent. MEDIASTINUM: There are no greater than 1 cm hilar or mediastinal lymph nodes. No cardiomegaly or pe ricardial effusion is seen. LIVER/GB: Stable 1.7 cm thin-walled cyst lateral left hepatic dome image 48. Small calcified dependen t gallstones redemonstrated. PANCREAS: Fairly moderate generalized fat replaced atrophy of the pancreas redemonstrated. SPLEEN: Spleen remains normal in size. ADRENALS: No significant abnormality is seen. KIDNEYS: Symmetrical cortical medullary uptake and excretion without hydronephrosis seen bilaterally. Central thin-walled parapelvic cysts in the left kidney redemonstrated. Stable 4.2 cm thin-walled cy st posteriorly at the lower pole of left kidney axial image 33. BOWEL: No significant abnormality is seen. GENITAL ORGANS: Prostate gland upper limits of normal in size. Scattered bilateral pelvic phleboliths . LYMPH NODES: No new or recurrent greater than 1cm abdominal or pelvic lymph nodes are appreciated. OSSEOUS STRUCTURES: Multilevel vacuum disc phenomenon. Moderate to severe disc space narrowing L5-S1 level. Moderate disc space narrowing L2-L3 level. Slight retrolisthesis L2 on L3 and L3 on L4. Facet arthropathy lower lumbar spine. OTHER: Mild/moderate calcified plaque of the aorta extends into branch vessels. Incidental subcentime ter intramuscular lipoma right lateral abdominal muscle on axial image 75. IMPRESSION: No suspicious new mass or adenopathy to suggest active lymphoma neoplastic recurrence.
== END | disposition home or self-care (01) ==
LOC: RADCTMAIN 11:53
PROVIDERS: ATTEND Internal Medicine Hematology & Oncology
DX: C83.18 Mantle cell lymphoma, lymph nodes of multiple sites (principal); Z88.0 Allergy status to penicillin; Z91.09 Other allergy status, other than to drugs and biological substances; Z88.8 Allergy status to other drugs, medicaments and biological substances
CPT/HCPCS: 82565; 84520; 71260; 74177; 36415; Q9967

== ENCOUNTER → 2020-08-09 | Outpatient (CLI) | payer MEDICARE ==
--- NOTE | 2020-08-09 15:09 | CT ---
EXAMINATION TYPE: CT facial bones w con DATE OF EXAM: 08/09/2020 COMPARISON: None HISTORY: Lump under left eye x 4-[address] DLP: 624.2 mGycm Automated exposure control for dose reduction was used. CONTRAST: CT scan of the facial bones is performed with IV Contrast, patient injected with 100 mL of Isovue M30 0. TECHNIQUE: CT scan of the sinuses is performed without contrast, axial images are obtained, coronal r eformatted images are also reviewed. FINDINGS: Within the soft tissues just lateral to the left maxillary sinus, infraorbital location is an obliquely oriented oval soft tissue density measuring approximately 2.8 x 1.0 x 1.1 cm showing int ermediate Hounsfield unit measurement. Possible mucus retention cyst present in the dependent portion of the right maxillary sinus. Ostiome atal units are patent. Mucosal thickening present within the ethmoid air cells. No abnormal enhanceme nt. IMPRESSION: Indeterminate soft tissue density infraorbital location as described, findings could be r elated to prior hematoma, correlate to exclude abscess, sebaceous cyst. Additional findings above.
== END | disposition home or self-care (01) ==
LOC: RADCTMAIN 12:13
PROVIDERS: ATTEND Otolaryngology
DX: R22.0 Localized swelling, mass and lump, head (principal); Z88.0 Allergy status to penicillin
CPT/HCPCS: 82565; 84520; 70487; 36415; Q9967

== ENCOUNTER 2020-08-31 05:12 | Observation (INO) | payer MEDICARE ==
--- NOTE | 2020-08-31 05:36 | ED ---
Chest Pain HPI - General Source: patient, RN notes reviewed, old records reviewed Mode of arrival: ambulatory Limitations: no limitations - History of Present Illness MD Complaint: chest pain, other (Abdominal pain and better when sitting forward) -: hour(s) Onset: awoke with symptoms Pain Location: substernal, epigastric Pain Radiation: none Severity: moderate Severity scale (1-10): 6 Quality: sharp Consistency: now resolved Improves With: nothing Worsens With: nothing Anginal Symptoms: nausea Other Symptoms: palpitations Treatments Prior to Arrival: none <Raz Saleem - Last Filed: 08/31/20 07:24> <Chemo Krishna - Last Filed: 08/31/20 08:13> - General Chief Complaint: Chest Pain Stated Complaint: Chest pain Time Seen by Provider: 08/31/20 05:29 - History of Present Illness Initial Comments: This is a 72-year-old male DF for evaluation patient Dese for evaluation regards to not feeling well. Patient will sleep tonight with severe chest and abdominal pain. Upon arrival to the ER pain is resolved. Patient has history of thoracic aneurysm concern for aneurysm problem again patient at this time is no complaints of pain. Patient states recent forward the pain got better. He has had history of reflux in the past states his does not feel like reflux. No shortness of breath no sweating no recent fevers been feeling well lately. (Raz Saleem) - Related Data Home Medications Medication Instructions Recorded Confirmed ALPRAZolam [Xanax] 0.25 mg PO HS PRN 01/12/14 12/17/19 Meloxicam 7.5 mg PO DAILY 01/12/14 12/17/19 Glucosam/Amador-Msm1/C/Julio/Bosw 1 tab PO DAILY 06/24/17 12/17/19 [Glucosamine-Chondroitin Tablet] Cholecalciferol [Vitamin D3 (25 1,000 unit PO DAILY 03/03/19 12/17/19 Mcg = 1000 Iu)] Gentle Iron 28 1 cap PO DAILY 03/03/19 12/17/19 Magnesium Gluconate 100mg 100 mg PO DAILY 03/03/19 12/17/19 Turmeric Root Extract [Turmeric] 500 mg PO DAILY 03/03/19 12/17/19 Multivitamins, Thera [Multivitamin 1 tab PO DAILY 04/20/19 12/17/19 (formulary)] Diltiazem Cd [Cardizem CD] 180 mg PO QAM 10/30/19 12/17/19 Flecainide Acetate [Tambocor] 100 mg PO BID 12/17/19 12/17/19 prednisoLONE ACETATE 1% OPHTH 1 drops BOTH EYES HS PRN 12/17/19 12/17/19 [Pred Forte 1%] Previous Rx's Medication Instructions Recorded Apixaban [Eliquis] 5 mg PO BID #60 tab 03/05/19 Allergies Allergy/AdvReac Type Severity Reaction Status Date / Time Penicillins Allergy Severe Rash/Hives Verified 08/31/20 05:22 anidulafungin AdvReac Chest Pain Verified 08/31/20 05:22 benzonatate AdvReac Dyspnea Verified 08/31/20 05:22 [From Harper Yanez] Review of Systems ROS Other: All systems not noted in ROS Statement are negative. <Raz Saleem - Last Filed: 08/31/20 07:24> ROS Other: All systems not noted in ROS Statement are negative. <Chemo Krishna - Last Filed: 08/31/20 08:13> ROS Statement: Those systems with pertinent positive or pertinent negative responses have been documented in the HPI. EKG Findings - EKG Comments: EKG Findings:: EKG shows sinus rhythm 88 MT 200 QRS 160 QTC 500 <Raz Saleem - Last Filed: 08/31/20 07:24> Past Medical History Past Medical History: Atrial Fibrillation, Cancer, Osteoarthritis (OA) Additional Past Medical History / Comment(s): Mantle Lymphoma, Basal Cell Carcinoma Oct 2012 (in remission), hx Bronchitis. aortic aneurysm History of Any Multi-Drug Resistant Organisms: None Reported Past Surgical History: Hernia Repair, Joint Replacement Additional Past Surgical History / Comment(s): Removal of skin cancer, bone marrow transplant, right knee replacement Past Anesthesia/Blood Transfusion Reactions: No Reported Reaction Past Psychological History: No Psychological Hx Reported Smoking Status: Never smoker Past Alcohol Use History: Occasional Past Drug Use History: None Reported - Past Family History Brother(s) Family Medical History: Cancer Additional Family Medical History / Comment(s): Patient has 2 brothers and both have passed one from multiple myeloma and one had CLL and multiple problems from obesity. Father Family Medical History: No Reported History Additional Family Medical History / Comment(s): Father was healthy and lived to be 95 yrs old. Mother Family Medical History: Vascular Disorder Additional Family Medical History / Comment(s): Mother at the age of 74 yrs from a ruptured aortic aneurysm. Son(s) Additional Family Medical History / Comment(s): Patient has 2 sons with no major medical problems. Patient doesn't have any sisters. <Raz Saleem - Last Filed: 08/31/20 07:24> General Exam Limitations: no limitations General appearance: alert, in no apparent distress Head exam: Present: atraumatic, normocephalic, normal inspection Eye exam: Present: normal appearance, PERRL, EOMI. Absent: scleral icterus, conjunctival injection, periorbital swelling ENT exam: Present: normal exam, mucous membranes moist Neck exam: Present: normal inspection. Absent: tenderness, meningismus, lymphadenopathy Respiratory exam: Present: normal lung sounds bilaterally. Absent: respiratory distress, wheezes, rales, rhonchi, stridor Cardiovascular Exam: Present: regular rate, normal rhythm, normal heart sounds. Absent: systolic murmur, diastolic murmur, rubs, gallop, clicks GI/Abdominal exam: Present: soft, normal bowel sounds. Absent: distended, tenderness, guarding, rebound, rigid Extremities exam: Present: normal inspection, full ROM, normal capillary refill. Absent: tenderness, pedal edema, joint swelling, calf tenderness Back exam: Present: normal inspection Neurological exam: Present: alert, oriented X3, CN II-XII intact Psychiatric exam: Present: normal affect, normal mood Skin exam: Present: warm, dry, intact, normal color. Absent: rash <Raz Saleem - Last Filed: 08/31/20 07:24> Course <Raz Saleem - Last Filed: 08/31/20 07:24> Vital Signs 08/31/20 05:19 Temperature 98.1 F Pulse Rate 95 Respiratory 18 Rate Blood Pressure 108/69 O2 Sat by Pulse 95 Oximetry - Reevaluation(s) Reevaluation #1: 08/31/20 07:25 Medical records reviewed (Raz Saleem) Reevaluation #2: 08/31/20 07:25 A she is asking for discharge upon arrival to the emergency department (Raz Saleem) Chest Pain [place] <Chemo Krishna - Last Filed: 08/31/20 08:13> - [place] Patient care is signed out to me by previous shift physician, Dr. Feliciano. Briefly, patient is 74-year-old male presents with chest pain and right upper quadrant pain. Suspected acute cholecystitis. Elevated white count. Elevated liver enzymes. Pending ultrasound gallbladder. Gallbladder ultrasound shows possible hepatocellular disease. No evidence to suggest acute cholecystitis. Patient reevaluated at bedside at 8:00 AM. States that he is symptom-free currently. is at bedside reports that over the last several days patient has been having chest pressure. He describes his symptoms as a pressure-like sensation to the substernal area. No radiation, no associated clamminess, diaphoresis or nausea. Cardiacworkup so for is unremarkable. Patient is agreeable with admission for further liver testing and cardiac monitoring. Cardiology consulted. Case discussed with Dr. Vizcaino was willing to accept patients care. (Chemo Krishna) Disposition <Raz Saleem - Last Filed: 08/31/20 07:24> <Chemo Krishna - Last Filed: 08/31/20 08:13> Clinical Impression: Chest pain Disposition: ADMITTED IP TO THIS [facility] Condition: Fair Referrals: Hemanth Meza MD [Primary Care Provider] - 1-2 days
[2020-08-31 05:54] LABS: Basophils % (A) 0 %; Eosinophils # (A) 0.2 k/uL (0-0.7); Eosinophils % (A) 1 %; HCT 36.8 % (39.0-53.0); HGB 12.3 gm/dL (13.0-17.5); Lymphocytes # (A) 1.3 k/uL (1.0-4.8); Lymphocytes % (A) 7 %; MCH 29.4 pg (25.0-35.0); MCHC 33.3 g/dL (31.0-37.0); MCV 88.3 fL (80.0-100.0); Mean Platelet Volume 8.3; Monocytes # (A) 0.7 k/uL (0-1.0); Monocytes % (A) 4 %; Neutrophils # (A) 15.5 k/uL (1.3-7.7); Neutrophils % (A) 87 %; Platelet Count 411 k/uL (150-450); RBC 4.17 m/uL (4.30-5.90); RDW 13.3 % (11.5-15.5); WBC 17.8 k/uL (3.8-10.6)
[2020-08-31 06:06] LABS: ALT 88 U/L (4-49); AST 82 U/L (17-59); African American GFR (CKD) >90 (>60 ml/min/1.73 sqM); Albumin 3.3 g/dL (3.5-5.0); Alkaline Phosphatase 262 U/L (38-126); Anion Gap 8 mmol/L; Blood Urea Nitrogen 16 mg/dL (9-20); Calcium 8.7 mg/dL (8.4-10.2); Carbon Dioxide 26 mmol/L (22-30); Chloride 101 mmol/L (98-107); Creatine Kinase 41 U/L (55-170); Glucose 114 mg/dL (74-99); Lipase 37 U/L (23-300); Magnesium 1.9 mg/dL (1.6-2.3); Non-African American GFR(CKD) 87 (>60 ml/min/1.73 sqM); Potassium 4.2 mmol/L (3.5-5.1); Sodium 135 mmol/L (137-145); Total Bilirubin 0.4 mg/dL (0.2-1.3)
[2020-08-31 06:19] LABS: Partial Thromboplastin Time 27.3 sec (22.0-30.0); Prothrombin Time 10.4 sec (9.0-12.0)
--- NOTE | 2020-08-31 07:34 | CT ---
EXAMINATION TYPE: CT angio chest DATE OF EXAM: 08/31/2020 COMPARISON: 01/04/2020 HISTORY: Chest and abdominal pain with history of aneurysm CT DLP: 1737.8 mGycm CONTRAST: CT chest with contrast and 3D reconstruction with MIP imaging is performed without and with IV Contra st, patient injected with 100 ml mL of Isovue 370. Contrast-enhanced CT of the chest was performed through the course of the pulmonary arteries with james g and mediastinal window settings submitted. 3D reconstruction with MIP imaging was also performed. PULMONARY ARTERIES: The pulmonary arteries and their major tributaries are patent. I do not see angie dence for sizable filling defect to suggest pulmonary embolic process. LUNGS: The lungs are clear and free of infiltrate. No evidence for atelectasis. No pulmonary nodule or mass is detected. No pleural effusion. MEDIASTINUM: No evidence for thoracic aneurysm. No dissection The heart is not enlarged. No evidence for mediastinal mass. No mediastinal lymph nodes greater than 1cm. HILAR STRUCTURES: No evidence for mass. No hilar lymph nodes greater than 1 cm. UPPER ABDOMEN: No significant abnormality is seen. IMPRESSION: 1. No evidence for Pulmonary embolism at this time.
--- NOTE | 2020-08-31 07:45 | CT ---
EXAMINATION TYPE: CT abdomen pelvis w con DATE OF EXAM: 08/31/2020 COMPARISON: 01/04/2020 HISTORY: Chest and abdominal pain with history of aneurysm CT DLP: 1737.8 mGycm CONTRAST: CT scan of the abdomen and pelvis is performed without Oral Contrast and with IV Contrast, patient in jected with 100 ml mL of Isovue 370. FINDINGS: LUNG BASES-: No visible nodule. No infiltrate. LIVER/GB: Gallstones identified. 1.4 cm cyst lateral segment left hepatic lobe. Biliary tree is of normal caliber. PANCREAS: No inflammation. No distinct mass. SPLEEN: No splenic enlargement. No lesion seen. ADRENALS: No nodule. No thickening. KIDNEYS/BLADDER: No hydronephrosis. No nephrolithiasis. Renal cystic changes left kidney with parap elvic and renal cortical cysts seen. Urinary bladder grossly unremarkable. BOWEL: Normal appendix. Normal bowel caliber. No inflammation. GENITAL ORGANS: No gross abnormality. LYMPH NODES: No greater than 1cm abdominal or pelvic lymph nodes are appreciated. AORTA: Atheromatous changes without evidence for abdominal aortic aneurysm. OSSEOUS STRUCTURES: No significant abnormality is seen. OTHER: No significant additional abnormality is seen. IMPRESSION: 1. No acute process seen to account for the patient's symptoms.
--- NOTE | 2020-08-31 07:53 | US ---
EXAMINATION TYPE: US gallbladder DATE OF EXAM: 08/31/2020 COMPARISON: CT 2019 CLINICAL HISTORY: pain. EXAM MEASUREMENTS: Liver Length: 17.8 cm Gallbladder Wall: 0.2 cm CBD: 0.4 cm Right Kidney: 11.2 x 5.6 x 5.3 cm Pancreas: obscured by overlying midline bowel gas Liver: limited visualization, scanned intercostally, 1.8cm cyst left lobe, the liver echotexture is heterogeneous Gallbladder: wnl Evidence for sonographic Wu's sign: no CBD: visualized portions wnl, limited by overlying bowel gas Right Kidney: wnl IMPRESSION: Correlate for possible hepatocellular disease. Limited exam.
[2020-08-31] MEDS ORDERED: NITROGLYCERIN SL TABS 0.4 MG TAB SUBLINGUAL PRN (08:13)
[2020-08-31] MEDS ORDERED: ASPIRIN 81 MG PO STA (08:13)
[2020-08-31] MEDS ORDERED: DILTIAZEM CD 180 MG CAP.ER.24H PO SCH (09:00)
[2020-08-31] MEDS ORDERED: APIXABAN 5 MG TAB PO SCH (09:00)
[2020-08-31] MEDS ORDERED: FLECAINIDE 50 MG TAB PO SCH (09:00)
[2020-08-31 11:23] VITALS: RESP 17
--- NOTE | 2020-08-31 11:56 | P.HPIM ---
History of Present Illness H&P Date: 08/31/20 Chief Complaint: Chest pain 74-year-old male one of Dr mahmood's and dr Panda's patient who seen oncology and cardiology regular basis known to have history of A. 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 fib with RVR with pulse rates under control lately. He is also closely monitored for aneurysm, thoracic area thoracic aneurysm CT was done and showed ascending aortic aneurysm size of aneurysm was 4.2 with no sign of dissection. Also the previous incidental of gallstone was found as well with no other major abnormality. Patient was seen in the emergency room secondary to persistent abdominal pain, for which she awoke from his sleep early this morning. Patient had a light meal yesterday, consisting of farm oatmeal, patient has a gallbladder stone, however he does not have any fever no chills. Chest pain persisted, there was no nitro given, in the emergency room as well, no nitro taken at home. Patient's pain is gone by the time he was seen in emergency room. Patient denies cough leg swelling heartburn no musculoskeletal injuries, no pleurisy, no hemoptysis. Consult was made with cardiology for the chest pain, also discussed the elevation of the transaminitis that was in the emergency room, hepatitis panel to be done for this, an outpatient workup with cytology for Ceballos, no current clinical evidence of cirrhosis, patient drinks alcohol only intermittently.. His last Lexiscan stress test was November 2019, he had CTA chest, negative for PE, there was no aneurysm seen during this current imaging, no major mediastinal mass CT of the abdomen and pelvis, was unremarkable except for 1.5 cm gallstone, and cyst in the left hepatic lobe,. 3 is normal, no splenic enlargement, no adrenal mass kidneys bladder normal, renal cyst left kidney Review of Systems Constitutional: Reports as per HPI, Denies anorexia, Denies chills, Denies chronic headaches, Denies chronic pain, Denies daytime sleepiness, Denies fatigue, Denies fever, Denies lethargy, Denies malaise, Denies night sweats, Denies poor appetite, Denies sweats, Denies weakness, Denies weight gain, Denies weight loss Ears, nose, mouth and throat: Reports as per HPI, Denies ant. neck pain, Denies bleeding gums, Denies dental pain, Denies dysphagia, Denies epistaxis, Denies headache, Denies hoarseness, Denies mouth pain, Denies nasal congestion, Denies nasal discharge, Denies neck fullness/pressure, Denies neck lump, Denies nose pain, Denies odynophagia, Denies post-nasal drip, Denies sinus pain, Denies sinus pressure, Denies swelling in mouth, Denies swelling in throat, Denies sore throat, Denies vertigo, Denies voice changes Cardiovascular: Reports as per HPI, Reports chest pain Respiratory: Reports as per HPI Gastrointestinal: Reports as per HPI Genitourinary: Reports as per HPI Musculoskeletal: Reports as per HPI, Denies gait dysfunction, Denies limitation of motion, Denies morning stiffness, Denies muscle cramps, Denies muscle weakness, Denies myalgias, Denies neck pain, Denies redness of joints, Denies shooting arm pain, Denies shooting leg pain Integumentary: Reports as per HPI, Denies color changes, Denies rash Neurological: Reports as per HPI, Denies ataxia, Denies balance difficulties, Denies burning pain, Denies change in mentation, Denies head injury, Denies headaches, Denies lack of coordination, Denies loss of vision, Denies memory loss, Denies vertigo, Denies weakness Psychiatric: Reports as per HPI, Denies anhedonia, Denies anxiety, Denies disorientation, Denies hallucinations, Denies insomnia, Denies memory loss Endocrine: Reports as per HPI, Denies fatigue, Denies nocturia, Denies palpitations Hematologic/Lymphatic: Reports as per HPI, Denies easy bleeding, Denies easy bruising, Denies lymphadenopathy, Denies lymphedema, Denies thrombophilia Allergic/Immunologic: Reports as per HPI, Denies allergic rhinitis, Denies anaphylaxis, Denies angioedema, Denies gluten intolerance, Denies persistent infections, Denies seasonal allergies, Denies urticaria, Denies wheezing Past Medical History Past Medical History: Atrial Fibrillation, Cancer, Osteoarthritis (OA) Additional Past Medical History / Comment(s): Mantle Lymphoma, Basal Cell Carcinoma Oct 2012 (in remission), hx Bronchitis. aortic aneurysm History of Any Multi-Drug Resistant Organisms: None Reported Past Surgical History: Hernia Repair, Joint Replacement Additional Past Surgical History / Comment(s): Removal of skin cancer, bone marrow transplant, right knee replacement Past Anesthesia/Blood Transfusion Reactions: No Reported Reaction Past Psychological History: No Psychological Hx Reported Smoking Status: Never smoker Past Alcohol Use History: Occasional Past Drug Use History: None Reported - Past Family History Brother(s) Family Medical History: Cancer Additional Family Medical History / Comment(s): Patient has 2 brothers and both have passed one from multiple myeloma and one had CLL and multiple problems from obesity. Father Family Medical History: No Reported History Additional Family Medical History / Comment(s): Father was healthy and lived to be 95 yrs old. Mother Family Medical History: Vascular Disorder Additional Family Medical History / Comment(s): Mother at the age of 74 yrs from a ruptured aortic aneurysm. Son(s) Additional Family Medical History / Comment(s): Patient has 2 sons with no major medical problems. Patient doesn't have any sisters. Medications and Allergies Home Medications Medication Instructions Recorded Confirmed Type Meloxicam 7.5 mg PO DAILY 01/12/14 08/31/20 History Gentle Iron 28 1 cap PO Q48H 03/03/19 08/31/20 History Magnesium Gluconate 100mg 100 mg PO DAILY 03/03/19 08/31/20 History Turmeric Root Extract [Turmeric] 500 mg PO Q48H 03/03/19 08/31/20 History Apixaban [Eliquis] 5 mg PO BID #60 tab 03/05/19 08/31/20 Rx Multivitamins, Thera [Multivitamin 1 tab PO Q48H 04/20/19 08/31/20 History (formulary)] Diltiazem Cd [Cardizem CD] 180 mg PO QAM 10/30/19 08/31/20 History Flecainide Acetate [Tambocor] 100 mg PO BID 12/17/19 08/31/20 History Cholecalciferol [Vitamin D3 (25 25 mcg PO DAILY 08/31/20 08/31/20 History Mcg = 1000 Iu)] Allergies Allergy/AdvReac Type Severity Reaction Status Date / Time Penicillins Allergy Severe Rash/Hives Verified 08/31/20 09:02 anidulafungin AdvReac Chest Pain Verified 08/31/20 09:02 benzonatate AdvReac Dyspnea Verified 08/31/20 09:02 [From Harper Yanez] Physical Exam Vitals: Vital Signs Temp Pulse Resp BP Pulse Ox 08/31/20 11:22 97.6 F 72 17 113/60 96 08/31/20 08:18 89 16 122/81 99 08/31/20 05:19 98.1 F 95 18 108/69 95 Intake and Output 08/30/20 08/31/20 08/31/20 22:59 06:59 14:59 Other: Weight 95.708 kg - Constitutional General appearance: cooperative, no acute distress - EENT Eyes: EOMI, PERRLA, dentition normal ENT: NA/AT, normal oropharynx - Neck Neck: normal ROM - Respiratory Respiratory: bilateral: CTA, negative: diminished, dullness, rales - Cardiovascular Rhythm: regular Heart sounds: normal: S1, S2 Abnormal Heart Sounds: no systolic murmur, no diastolic murmur, no rub, no S3 Gallop, no S4 Gallop, no click, no other - Gastrointestinal General gastrointestinal: normal bowel sounds, soft - Integumentary Integumentary: normal, normal turgor - Neurologic Neurologic: CNII-XII intact, focal deficits - Musculoskeletal Musculoskeletal: gait normal, strength equal bilaterally Results CBC & Chem 7: 08/31/20 05:46 08/31/20 05:46 Labs: Abnormal Lab Results - Last 24 Hours (Table) 08/31/20 08/31/20 Range/Units 05:46 05:46 WBC 17.8 H (3.8-10.6) k/uL RBC 4.17 L (4.30-5.90) m/uL Hgb 12.3 L (13.0-17.5) gm/dL Hct 36.8 L (39.0-53.0) % Neutrophils # 15.5 H (1.3-7.7) k/uL Sodium 135 L (137-145) mmol/L Glucose 114 H (74-99) mg/dL AST 82 H (17-59) U/L ALT 88 H (4-49) U/L Alkaline Phosphatase 262 H (38-126) U/L Creatine Kinase 41 L (55-170) U/L Total Protein 6.0 L (6.3-8.2) g/dL Albumin 3.3 L (3.5-5.0) g/dL Thrombosis Risk Factor Assmnt - DVT/VTE Prophylaxis DVT/VTE Prophylaxis: Pharmacologic Prophylaxis ordered - Choose All That Apply Each Risk Factor Represents 2 Points: Age 61-74 years Thrombosis Risk Factor Assessment Total Risk Factor Score: 2 Thrombosis Risk Factor Assessment Level: Low Risk Assessment and Plan Plan: 1 recurrent chest pain atypical, no rash to signify shingles, no pleurisy negative for aortic aneurysm dissection not a clear etiology at this point CK with troponin will be done repeat EKG and consult cardiology appreciated. Lexiscan stress test November 2019, negative, echocardiogram. Patient needs to have outpatient workup of the gallbladder to evaluate for biliary dyskinesia which hasn't been done, could be done as an outpatient with PCP or GI 2 ascending thoracic aneurysm with no dissection size 4.[address] Panda, no dissection on recent imaging, the aneurysm is not seen during CTA i maging of the chest today 3. 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 Oncology consult. 4 odynophagia none currently should have had: ENT consultation 5 reactive airway/asthma not active 6 paroxysmal atrial fibrillation: Has been doing very well on flecainide still on anticoagulation with Eliquis 5 mg twice a day. Continue diltiazem as well. 7 severe GERD/GI prophylaxis: Patient will be on pantoprazole. 8 DVT prophylaxis: Patient is on Eliquis 5 mg twice a day.
--- NOTE | 2020-08-31 13:59 | P.CRDCN ---
History of Present Illness History of present illness: This is a 74-year old male with a past medical history significant for atrial fibrillation with previous cardioversion 02/2019, nonischemic cardiomyopathy, hyperlipidemia, thoracic aortic aneurysm without rupture. Patient follows in the office with Dr. Panda. We have been asked to see the patient in consultation for chest pain. Patient states he awoke from his sleep early this morning with midsternal chest pain. Describes one episode of chest pain. Describes it as a heaviness. It lasted all night. Getting up and walking made it better. He stayed in bed the whole time, once he got up and moving, he started to feel better. No aggravating factors. No associated symptoms. He denies palpitations, shortness of breath, nausea, diaphoresis, lightheadedness, dizziness, syncope. Family h istory includes patient reports his mom from a AAA. Patient presented to the hospital in November 2019, with similar symptoms. He underwent a Lexiscan stress test which was negative for reversible ischemia. He also underwent an echocardiogram which revealed an EF of 40-45%, LA is mildly dilated, mild to moderate mitral regurgitation, mild tricuspid regurgitation. DIAGNOSTICS: EKG reveals sinus rhythm, heart rate 88, PVCs, no significant STT wave abnormalities. Chest xray negative for acute process Gallbladder Ultrasound- possible hepatocellular disease CT Chest and abdomen/Pelvis - no acute findings Ultrasound revealed Laboratory data: WBC 17.8, hemoglobin 12.3, platelets 411, sodium 135, potassium 4.2, BUNs 16, serum creatinine 0.8, AST 82, ALT 88, AP 262, troponin negative 3, proBNP 493 Current home cardiac medications include flecainide 100 mg twice a day, Cardizem 180mg daily, and Eliquis 5 mg twice a day REVIEW OF SYSTEMS: At the time of my exam: CONSTITUTIONAL: Denies fever or chills. HEENT: Denies blurred vision, vision changes, or eye pain. Denies hemoptysis. Reports sore throat 1 week CARDIOVASCULAR: + chest pain, Denies orthopnea, PND or palpitations RESPIRATORY: No shortness of breath. GASTROINTESTINAL: Denies abdominal pain. Denies nausea or vomiting. HEMATOLOGIC: Denies bleeding disorders. GENITOURINARY: Denies any blood in urine. SKIN: Denies pruitis. Denies rash. PHYSICAL EXAM: VITAL SIGNS: Reviewed. GENERAL: Well-developed in no acute distress. HEENT: Head is normocephalic. Pupils are equal, round. Sclerae anicteric. Mucous membranes of the mouth are moist. Neck supple. No JVD or thyromegaly LUNGS: Respirations even and unlabored. Lungs essentially clear to auscultation bilaterally. HEART: Regular rate and rhythm. S1 and S2 heard. ABDOMEN: Soft. Nondistended. Nontender. EXTREMITIES: Normal range of motion. No clubbing or cyanosis. Peripheral pulses intact. No lower extremity edema NEUROLOGIC: Awake and alert. Oriented x 3. ASSESSMENT: Chest pain, atypical, acute coronary syndrome has been ruled out History of chronic persistant atrial fibrillation, with previous cardioversion, on long-term anticoagulation with Eliquis History of Aortic root aneurysm, measuring 4.2 cm Transaminitis Leukocytosis PLAN: Negative cardiac enzymes, no ischemic changes on EKG. Recent negative Lexiscan stress test 11/2019. From a cardiology perspective, patient is stable to be discharged home Follow up with Dr. aPnda in 2 weeks Continue home cardiac medications Nurse practitioner note has been reviewed by physician. Signing provider agrees with the documented findings, assessment, and plan of care. Past Medical History Past Medical History: Atrial Fibrillation, Cancer, Osteoarthritis (OA) Additional Past Medical History / Comment(s): Mantle Lymphoma, Basal Cell Carcinoma Oct 2012 (in remission), hx Bronchitis. aortic aneurysm History of Any Multi-Drug Resistant Organisms: None Reported Past Surgical History: Hernia Repair, Joint Replacement Additional Past Surgical History / Comment(s): Removal of skin cancer, bone marrow transplant, right knee replacement Past Anesthesia/Blood Transfusion Reactions: No Reported Reaction Past Psychological History: No Psychological Hx Reported Smoking Status: Never smoker Past Alcohol Use History: Occasional Past Drug Use History: None Reported - Past Family History Brother(s) Family Medical History: Cancer Additional Family Medical History / Comment(s): Patient has 2 brothers and both have passed one from multiple myeloma and one had CLL and multiple problems from obesity. Father Family Medical History: No Reported History Additional Family Medical History / Comment(s): Father was healthy and lived to be 95 yrs old. Mother Family Medical History: Vascular Disorder Additional Family Medical History / Comment(s): Mother at the age of 74 yrs from a ruptured aortic aneurysm. Son(s) Additional Family Medical History / Comment(s): Patient has 2 sons with no major medical problems. Patient doesn't have any sisters. Medications and Allergies Home Medications Medication Instructions Recorded Confirmed Type Meloxicam 7.5 mg PO DAILY 01/12/14 08/31/20 History Gentle Iron 28 1 cap PO Q48H 03/03/19 08/31/20 History Magnesium Gluconate 100mg 100 mg PO DAILY 03/03/19 08/31/20 History Turmeric Root Extract [Turmeric] 500 mg PO Q48H 03/03/19 08/31/20 History Apixaban [Eliquis] 5 mg PO BID #60 tab 03/05/19 08/31/20 Rx Multivitamins, Thera [Multivitamin 1 tab PO Q48H 04/20/19 08/31/20 History (formulary)] Diltiazem Cd [Cardizem CD] 180 mg PO QAM 10/30/19 08/31/20 History Flecainide Acetate [Tambocor] 100 mg PO BID 12/17/19 08/31/20 History Cholecalciferol [Vitamin D3 (25 25 mcg PO DAILY 08/31/20 08/31/20 History Mcg = 1000 Iu)] Allergies Allergy/AdvReac Type Severity Reaction Status Date / Time Penicillins Allergy Severe Rash/Hives Verified 08/31/20 09:02 anidulafungin AdvReac Chest Pain Verified 08/31/20 09:02 benzonatate AdvReac Dyspnea Verified 08/31/20 09:02 [From Harper Yanez] Physical Exam Vitals: Vital Signs Temp Pulse Resp BP Pulse Ox 08/31/20 08:18 89 16 122/81 99 08/31/20 05:19 98.1 F 95 18 108/69 95 Intake and Output 08/30/20 08/31/20 08/31/20 22:59 06:59 14:59 Other: Weight 95.708 kg Results 08/31/20 05:46 08/31/20 05:46 Cardiac Enzymes 08/31/20 08/31/20 08/31/20 Range/Units 05:46 05:46 09:14 AST 82 H (17-59) U/L Troponin I <0.012 <0.012 (0.000-0.034) ng/mL Coagulation 08/31/20 Range/Units 05:46 PT 10.4 (9.0-12.0) sec APTT 27.3 (22.0-30.0) sec CBC 08/31/20 Range/Units 05:46 WBC 17.8 H (3.8-10.6) k/uL RBC 4.17 L (4.30-5.90) m/uL Hgb 12.3 L (13.0-17.5) gm/dL Hct 36.8 L (39.0-53.0) % Plt Count 411 (150-450) k/uL Comprehensive Metabolic Panel 08/31/20 Range/Units 05:46 Sodium 135 L (137-145) mmol/L Potassium 4.2 (3.5-5.1) mmol/L Chloride 101 (98-107) mmol/L Carbon Dioxide 26 (22-30) mmol/L BUN 16 (9-20) mg/dL Creatinine 0.85 (0.66-1.25) mg/dL Glucose 114 H (74-99) mg/dL Calcium 8.7 (8.4-10.2) mg/dL AST 82 H (17-59) U/L ALT 88 H (4-49) U/L Alkaline Phosphatase 262 H (38-126) U/L Total Protein 6.0 L (6.3-8.2) g/dL Albumin 3.3 L (3.5-5.0) g/dL Current Medications Generic Name Dose Route Start Last Admin Trade Name Freq PRN Reason Stop Dose Admin Apixaban 5 mg 08/31/20 09:00 08/31/20 09:13 Apixaban 5 Mg Tab PO 5 mg BID GREYSON Administration Protocol Aspirin 325 mg 09/01/20 09:00 Aspirin 325 Mg Tab PO DAILY [facility] Diltiazem HCl 180 mg 08/31/20 09:00 08/31/20 09:31 Diltiazem Cd 180 Mg Cap.Er.24h PO 180 mg DAILY GREYSON Administration Flecainide Acetate 100 mg 08/31/20 09:00 08/31/20 09:31 Flecainide 50 Mg Tab PO 100 mg BID GREYSON Administration Nitroglycerin 0.4 mg 08/31/20 08:13 Nitroglycerin Sl Tabs 0.4 Mg Tab SUBLINGUAL Q5M PRN Chest Pain Intake and Output 08/30/20 08/31/20 08/31/20 22:59 06:59 14:59 Other: Weight 95.708 kg 08/31/20 05:46 08/31/20 05:46
[2020-08-31 14:19] VITALS: BP 110/70; PULSE 83; TEMP 98.1
[2020-08-31 23:23] LABS: Hepatitis A Antibody IgM Non-Reactive (Non-Reactive); Hepatitis B Core IgM Non-Reactive (Non-Reactive); Hepatitis B Surface Antigen Non-Reactive (Non-Reactive); Hepatitis C IgG Antibody Non-Reactive (Non-Reactive)
[2020-09-01] MEDS ORDERED: ASPIRIN 325 MG TAB PO SCH (09:00)
== END 2020-08-31 14:30 | disposition home or self-care (01) ==
LOC: EC 05:12 → 6NMEDSUR 08:13
PROVIDERS: ADMIT Family Medicine; ATTEND Family Medicine
DX: R07.2 Precordial pain (principal); I48.19 Other persistent atrial fibrillation; I71.2 Thoracic aortic aneurysm, without rupture; D72.829 Elevated white blood cell count, unspecified; R74.01 Elevation of levels of liver transaminase levels; K76.89 Other specified diseases of liver; R00.2 Palpitations; R59.0 Localized enlarged lymph nodes; K21.9 Gastro-esophageal reflux disease without esophagitis; M19.90 Unspecified osteoarthritis, unspecified site; E78.5 Hyperlipidemia, unspecified; I42.8 Other cardiomyopathies; I49.3 Ventricular premature depolarization; J44.9 Chronic obstructive pulmonary disease, unspecified; K80.20 Calculus of gallbladder without cholecystitis without obstruction; N40.0 Benign prostatic hyperplasia without lower urinary tract symptoms; Z79.01 Long term (current) use of anticoagulants; Z79.1 Long term (current) use of non-steroidal anti-inflammatories (NSAID); Z79.899 Other long term (current) drug therapy; Z88.0 Allergy status to penicillin; Z88.8 Allergy status to other drugs, medicaments and biological substances; Z85.72 Personal history of non-Hodgkin lymphomas; Z85.828 Personal history of other malignant neoplasm of skin; Z96.651 Presence of right artificial knee joint; Z80.7 Family history of other malignant neoplasms of lymphoid, hematopoietic and related tissues; Z80.6 Family history of leukemia
CPT/HCPCS: 99285; 36415; 93005; 83880; 80053; 80074; 82550; 83690; 83735; 84484; 85025; 85610; 85730; 80143; 76705; 71275; 74177; G0378; Q9967

== ENCOUNTER 2020-09-21 10:15 | Day surgery (SDC) | payer MEDICARE ==
[2020-09-19 15:07] VITALS: BMI 25.7
[~2020-09-21 10:15] MED LIST changes: +DEXAMETHASONE SOD PHOSPHATE 4 MG/ML 1 ML VIAL IV ONE; +FAMOTIDINE 20 MG/2 ML VIAL IV PRN; +HYDROmorphone 0.5 MG/0.5 ML SYRINGE IVP PRN; +LIDOCAINE 1% (10MG/ML) FOR IV START INTRADERMA PRN; +METOCLOPRAMIDE 5 MG/ML 2 ML VIAL IVP PRN; +ONDANSETRON 4 MG/2 ML VIAL IVP ONE
[2020-09-21] MEDS ORDERED: MIDAZOLAM 2 MG/2 ML VIAL IVP ONE (11:57)
[2020-09-21] MEDS ORDERED: SUCCINYLCHOLINE CHLORIDE 100 MG/5 ML SYR IV ONE (12:25)
[2020-09-21] MEDS ORDERED: PROPOFOL 10 MG/ML 20 ML VIAL IV ONE (12:25)
[2020-09-21] MEDS ORDERED: ePHEDrine SULFATE/0.9% NACL/PF 50 MG/5 ML SYRINGE IV ONE (12:25)
[2020-09-21] MEDS ORDERED: fentaNYL (PF) 50 MCG/ML 2 ML AMP ONE (12:25)
[2020-09-21] MEDS ORDERED: LIDOCAINE 1% INJ 10MG/ML (20 ML MDV) ONE (12:25)
[2020-09-21] MEDS ORDERED: LIDOCAINE 1% INJ 10MG/ML (20 ML MDV) SQ ONE ×2 (12:38→12:48)
[2020-09-21] MEDS ORDERED: BACITRACIN ZINC 500 UNIT/GM OINT 28.4 GM TUBE TOPICAL ONE (13:15)
--- NOTE | 2020-09-21 13:25 | P.OP ---
Date of Procedure: 09/21/20 Preoperative Diagnosis: Left cheek lesion Postoperative Diagnosis: Same Procedure(s) Performed: Incisional biopsy left cheek lesion Anesthesia: ANNE-MARIEA Surgeon: Arturo Banks Estimated Blood Loss (ml): 2 Pathology: other (Left cheek subcutaneous lesion) Condition: stable Disposition: PACU Indications for Procedure: This 74-year-old white male with a chronic left cheek subcutaneous lesion which on CT is overlying the maxillary bone Operative Findings: Deep subcutaneous nodular lesion which was dark pink deep to the muscular layer and down to the periosteum approximate 3 x 1.5 cm the tissue was soft and not particularly well circumscribed Description of Procedure: The patient was brought in the operative suite and placed in a supine position. Patient underwent induction of general anesthesia with oral endotracheal intuba tion without difficulty. Patient was prepped and draped in usual aseptic fashion. 1% lidocaine with 1 1000 epinephrine was infused subcutaneously and field block fashion. This was left to work for 7 minutes vasoconstrictive effect. Approximately 2 cm incision was placed over the midportion of the lesion and carried sharply through the skin and subcutaneous tissue as well as muscular layer in the direction of the muscular layer to encounter the mass at this layer. An incisional biopsy taking approximately 1 cm square of tissue was obtained and sent fresh for flow cytometry and touch preps and routine histology. Good hemostasis was noted and the wound was closed in the urine subcutaneous layers with inverted interrupted 5-0 Vicryl suture and skin closed with running locking 50 rolling suture. Bacitracin ointment and sterile dressing were lysed. The patient was allowed to emerge from general anesthesia having tolerated procedure well was extubated in the operating suite and transf erred postoperative recovery area in satisfactory condition.
[2020-09-21 13:36] VITALS: TEMP 97.2
[2020-09-21 13:47] VITALS: RESP 16
[2020-09-21 14:44] VITALS: BP 106/64; PULSE 70
== END 2020-09-21 14:56 | disposition home or self-care (01) ==
LOC: OR 10:15
PROVIDERS: ATTEND Otolaryngology
DX: L98.9 Disorder of the skin and subcutaneous tissue, unspecified (principal); J43.9 Emphysema, unspecified; Z85.828 Personal history of other malignant neoplasm of skin; H93.19 Tinnitus, unspecified ear; Z96.60 Presence of unspecified orthopedic joint implant; Z82.49 Family history of ischemic heart disease and other diseases of the circulatory system; Z80.9 Family history of malignant neoplasm, unspecified; Z88.0 Allergy status to penicillin; Z88.8 Allergy status to other drugs, medicaments and biological substances; I48.91 Unspecified atrial fibrillation; Z79.01 Long term (current) use of anticoagulants; Z79.1 Long term (current) use of non-steroidal anti-inflammatories (NSAID); Z79.899 Other long term (current) drug therapy; Z98.890 Other specified postprocedural states
CPT/HCPCS: 11106; J2250; J1100; J2405; J0690; J2001; J3010; J0330; J2704; 88305; 88341; 88342

== ENCOUNTER → 2020-09-27 | Outpatient (CLI) | payer MEDICARE ==
--- NOTE | 2020-09-27 08:52 | MR ---
EXAMINATION TYPE: MR MRCP DATE OF EXAM: 09/27/2020 COMPARISON: CT abdomen and pelvis August 31, 2020 and older CTs HISTORY: Abnormal liver function study Standard multiplanar, multisequence MRI departmental protocol Multiplanar, multisequence images of the abdomen focusing on the liver were acquired. Diffusion weigh eric imaging was performed. 2-D and 3-D reconstructed images created on MRI scanner. FINDINGS: Liver/gallbladder/pancreas/biliary system: Tiny calcified gallstones seen better on CT versus MRI due to calcified appearance but are redemonstrated dependently near yves hepatis. No suspicious surroun ding fluid or fat stranding. Liver is overall normal in size without significant signal dropout. Ther e is simple benign 1.7 cm thin-walled cyst in the lateral segment left hepatic lobe image 38 series 4 01 redemonstrated. Moderate generalized fat replaced atrophy of the pancreas is redemonstrated. MRCP images show poor visualization of the biliary system and pancreatic duct without suspicious dilatatio n. Motion artifact degradation is noted. Poor distention also makes evaluation suboptimal. Other: Lung bases remain clear. The spleen and both adrenal glands remain within normal limits. Parti ally exophytic 4.3 cm thin-walled cyst posteriorly in the left kidney with additional smaller central parapelvic cyst in the left kidney are redemonstrated. No suspicious bowel dilatation. No intra-abdo sundeep ascites. No greater than 1 cm abdominal adenopathy. Multilevel spurring of the spine is redemon strated. IMPRESSION: No concerning intrahepatic mass or intrahepatic ductal dilatation. Several tiny calcified gallstones redemonstrated. No significant change from prior CTs.
== END | disposition home or self-care (01) ==
LOC: RADMRIMAIN 07:38
PROVIDERS: ATTEND Internal Medicine Hematology & Oncology
DX: C83.18 Mantle cell lymphoma, lymph nodes of multiple sites (principal); D50.9 Iron deficiency anemia, unspecified; F41.9 Anxiety disorder, unspecified; D72.829 Elevated white blood cell count, unspecified
CPT/HCPCS: 74181

== ENCOUNTER → 2020-10-20 | Outpatient (CLI) | payer MEDICARE ==
[2020-10-20 08:24] LABS: African American GFR (CKD) >90 (>60 ml/min/1.73 sqM); Blood Urea Nitrogen 13 mg/dL (9-20); Non-African American GFR(CKD) 82 (>60 ml/min/1.73 sqM)
--- NOTE | 2020-10-20 09:22 | CT ---
EXAMINATION TYPE: CT angio chest DATE OF EXAM: 10/20/2020 COMPARISON: 08/31/2020 HISTORY: follow up thoracic aneurysm CT DLP: 463.1 mGycm CONTRAST: CTA thoracic aorta with 3-D reconstruction is performed and with IV Contrast, patient injected with 1 00 mL of Isovue 370. Contrast CTA of the thoracic aorta was performed from the lung apex through the upper abdomen. 3D re construction imaging obtained at a separate workstation. CT Chest: THORACIC AORTA: No evidence for thoracic aortic aneurysm. Maximal AP dimension is 3.6 cm. Mild athero matous changes seen. There is no evidence for dissection or periaortic collection. LUNGS: The lungs are clear and free of infiltrate or atelectasis. No pulmonary nodule or mass is det ected. No pleural effusion or CT evidence of interstitial lung disease. MEDIASTINUM: No evidence for mediastinal hematoma. The heart is not enlarged. No evidence for med iastinal mass or adenopathy. HILAR STRUCTURES: No evidence for mass. No hilar adenopathy is appreciated. OTHER: Cholelithiasis. Left renal cyst. IMPRESSION- No evidence for thoracic aortic aneurysm or dissection.
== END ==
LOC: RADCTMAIN 07:39
PROVIDERS: ATTEND Internal Medicine Interventional Cardiology
DX: I71.2 Thoracic aortic aneurysm, without rupture (principal)
CPT/HCPCS: 82565; 84520; 71275; 36415; Q9967

== ENCOUNTER → 2021-05-12 | Outpatient (CLI) | payer MEDICARE ==
--- NOTE | 2021-05-12 10:43 | XR ---
EXAMINATION TYPE: XR chest 2V DATE OF EXAM: 05/12/2021 COMPARISON: 12/17/2019 TECHNIQUE: PA and lateral views submitted. HISTORY: Fall pain FINDINGS: The lungs are clear and there is no pneumothorax, pleural effusion, or focal pneumonia. Elevated le ft hemidiaphragm. No overt failure. Atherosclerotic change aorta. Hypertrophic and degenerative mills e of the spine. IMPRESSION: 1. No acute process.
== END | disposition home or self-care (01) ==
LOC: RADXRMAIN 10:28
PROVIDERS: ATTEND Internal Medicine Hematology & Oncology
DX: C83.18 Mantle cell lymphoma, lymph nodes of multiple sites (principal); D50.9 Iron deficiency anemia, unspecified; F41.9 Anxiety disorder, unspecified; D72.829 Elevated white blood cell count, unspecified
CPT/HCPCS: 71046

== ENCOUNTER 2021-05-15 11:48 | Inpatient (IN) | payer MEDICARE ==
[2021-05-15] MEDS ORDERED: SODIUM CHLORIDE 0.9% 1,000 ML IV STA ×2 (13:08)
--- NOTE | 2021-05-15 13:16 | ED ---
General Adult HPI - General Chief complaint: Recheck/Abnormal Lab/Rx Stated complaint: blood infection Time Seen by Provider: 05/15/21 12:54 Source: patient, family Mode of arrival: ambulatory - History of Present Illness Initial comments: This 75-year-old male presents with with a complaint of weakness. He apparently has had this over the last 2+ weeks. He is also had night sweats. He denies any actual known fevers but also they have not checked his temperature. He states that he has had some shaking chills which sounds consistent with rigors. The patient also relates that he has some occasional shortness of breath. He states that the weakness is generalized in nature. He is still able to ambulate across a room but states that it is more difficult than normal. He apparently followed up with his doctor this past Saturday, approximately 3 days ago, and had blood work done. She was sent in today as he had a positive blood culture for gram-positive cocci. He denies any known recent infections. He denies any urinary symptomatology. There's been no cough . He denies any recent skin infections or sinus problems. He does have a history of lymphoma which initially was treated and was in remission 7 years ago. It apparently recently reoccurred underneath his left eye. He received radiation treatment for this. relates that he was having some chest pain this past evening that was radiating into his throat area. He denies any leg pain or swelling. Patient overall is fairly poor historian but his is an excellent historian. He does relate that he is had headaches ever since having the radiation therapy to his left face and he is following up with his doctors at [facility] tomorrow. No other identifiable complaints or mo difying factors. - Related Data Home Medications Medication Instructions Recorded Confirmed Meloxicam 7.5 mg PO DAILY 01/12/14 05/15/21 Gentle Iron 28 1 cap PO Q48H 03/03/19 05/15/21 Magnesium Gluconate 100mg 100 mg PO DAILY 03/03/19 05/15/21 Turmeric Root Extract [Turmeric] 500 mg PO Q48H 03/03/19 05/15/21 Multivitamins, Thera [Multivitamin 1 tab PO Q48H 04/20/19 05/15/21 (formulary)] Diltiazem Cd [Cardizem CD] 180 mg PO QAM 10/30/19 05/15/21 Flecainide Acetate [Tambocor] 100 mg PO BID 12/17/19 05/15/21 Cholecalciferol [Vitamin D3 (25 25 mcg PO DAILY 08/31/20 05/15/21 Mcg = 1000 Iu)] Glucosam/Amador-Msm1/C/Julio/Bosw 1 tab PO BID 05/15/21 05/15/21 [Glucosamine-Chondroitin Tablet] Previous Rx's Medication Instructions Recorded Apixaban [Eliquis] 5 mg PO BID #60 tab 03/05/19 Allergies Allergy/AdvReac Type Severity Reaction Status Date / Time Penicillins Allergy Severe Rash/Hives Verified 05/15/21 14:13 over entire body anidulafungin AdvReac Chest Verified 05/15/21 14:14 Pain/Severe Arm pain with infusion benzonatate AdvReac Dyspnea Verified 05/15/21 14:13 [From Harper Yanez] Review of Systems ROS Statement: Those systems with pertinent positive or pertinent negative responses have been documented in the HPI. ROS Other: All systems not noted in ROS Statement are negative. Past Medical History Past Medical History: Atrial Fibrillation, Cancer, Osteoarthritis (OA) Additional Past Medical History / Comment(s): Mantle Lymphoma, Basal Cell Carcinoma Oct 2012 (in remission), hx Bronchitis. aortic aneurysm History of Any Multi-Drug Resistant Organisms: None Reported Past Surgical History: Hernia Repair, Joint Replacement Additional Past Surgical History / Comment(s): Removal of skin cancer, bone marrow transplant, right knee replacement Past Anesthesia/Blood Transfusion Reactions: No Reported Reaction Past Psychological History: No Psychological Hx Reported Smoking Status: Never smoker Past Alcohol Use History: None Reported Past Drug Use History: None Reported - Past Family History Brother(s) Family Medical History: Cancer Additional Family Medical History / Comment(s): . Father Family Medical History: No Reported History Additional Family Medical History / Comment(s): Father was healthy and lived to be 95 yrs old. Mother Family Medical History: Vascular Disorder Additional Family Medical History / Comment(s): Mother at the age of 74 yrs from a ruptured aortic aneurysm. Son(s) Additional Family Medical History / Comment(s): Patient has 2 sons with no major medical problems. Patient doesn't have any sisters. General Exam - General Exam Comments Initial Comments: GENERAL: The patient is well nourished and well hydrated. VITAL SIGNS: Heart rate, blood pressure, respiratory rate reviewed as recorded in nurse's notes. EYES: Pupils are round and reactive. Extraocular movements are intact. No conjunctival / lid redness or swelling. ENT: No external evidence of injury, swelling, or ecchymosis. Airway is patent. Throat is clear. NECK: Nontender. No swelling or evidence of injury. No subcutaneous emphysema. Trachea is midline. No thyroid mass. HEART: Regular rate and rhythm. Good peripheral pulses. LUNGS/CHEST: Breath sounds clear and equal bilaterally. No rales, rhonchi, or wheezes. No ecchymosis, subcutaneous emphysema, or tenderness. ABDOMEN: Abdomen soft without tenderness. No palpable masses or organomegaly. No peritoneal signs. No abdominal wall swelling or ecchymosis. EXTREMITIES: No extremity tenderness. Normal muscle tone and function. No thoracolumbar tenderness. NEUROLOGIC: Sensation is grossly intact. Cranial nerve exam reveals face is symmetrical, tongue is midline, speech is clear. SKIN: No abrasions or ecchymosis is noted. No induration or masses noted. PSYCHIATRIC: Alert and oriented. Appropriate behavior but may have some memory impairment. Course Vital Signs 05/15/21 05/15/21 05/15/21 11:49 12:11 15:17 Temperature 97.4 F L 98.7 F 99.4 F Pulse Rate 74 78 80 Respiratory 16 14 14 Rate Blood Pressure 120/69 103/62 120/67 O2 Sat by Pulse 98 97 95 Oximetry Medical Decision Making - Medical Decision Making The patient was seen and examined. All diagnostics were reviewed. The patient had an EKG which shows a normal sinus rhythm at a rate of 75. There is no acute ST-T wave changes identified. The HI intervals 213, QRS duration is 118, and the QTC intervals 452. An IV is established and he is hydrated. He also receives Rocephin intravenously. Blood cultures were repeated. Old records were reviewed from this past Saturday which does show gram-positive cocci. The white blood cell count is slightly increased at 16.5. Remainder labs are essentially within normal limits. Urinalysis does not show any evidence of infection. It sounds clinically as though the patient likely does have bacteremia especially in light of his weakness, rigors, and positive blood culture. It is felt as though he benefit from admission to the hospital and continued IV antibiotics. Case is discussed with internal medicine and they are agreeable with admission. Patient's primary care is Dr. Meza but his group apparently is off today and patient will be admitted to [facility]. - Lab Data Result diagrams: 05/15/21 12:00 05/15/21 12:00 Lab Results 05/15/21 05/15/21 05/15/21 Range/Units 12:00 12:00 12:00 WBC 16.5 H (3.8-10.6) k/uL RBC 4.35 (4.30-5.90) m/uL Hgb 13.7 (13.0-17.5) gm/dL Hct 42.4 (39.0-53.0) % MCV 97.5 (80.0-100.0) fL MCH 31.5 (25.0-35.0) pg MCHC 32.3 (31.0-37.0) g/dL RDW 12.3 (11.5-15.5) % Plt Count 391 (150-450) k/uL MPV 9.2 Neutrophils % 82 % Lymphocytes % 10 % Monocytes % 4 % Eosinophils % 1 % Basophils % 1 % Neutrophils # 13.6 H (1.3-7.7) k/uL Lymphocytes # 1.6 (1.0-4.8) k/uL Monocytes # 0.7 (0-1.0) k/uL Eosinophils # 0.2 (0-0.7) k/uL Basophils # 0.1 (0-0.2) k/uL PT 10.6 (9.0-12.0) sec INR 1.0 (<1.2) APTT 28.1 (22.0-30.0) sec Sodium 135 L (137-145) mmol/L Potassium 4.4 (3.5-5.1) mmol/L Chloride 101 (98-107) mmol/L Carbon Dioxide 24 (22-30) mmol/L Anion Gap 10 mmol/L BUN 16 (9-20) mg/dL Creatinine 0.97 (0.66-1.25) mg/dL Est GFR (CKD-EPI)AfAm 90 (>60 ml/min/1.73 sqM) Est GFR (CKD-EPI)NonAf 78 (>60 ml/min/1.73 sqM) Glucose 92 (74-99) mg/dL Plasma Lactic Acid Evan (0.7-2.0) mmol/L Calcium 8.8 (8.4-10.2) mg/dL Phosphorus 4.0 (2.5-4.5) mg/dL Magnesium 2.1 (1.6-2.3) mg/dL Total Bilirubin 0.9 (0.2-1.3) mg/dL AST 47 (17-59) U/L ALT 84 H (4-49) U/L Alkaline Phosphatase 248 H (38-126) U/L Troponin I (0.000-0.034) ng/mL NT-Pro-B Natriuret Pep pg/mL Total Protein 7.1 (6.3-8.2) g/dL Albumin 3.6 (3.5-5.0) g/dL TSH 2.340 (0.465-4.680) mIU/L Urine Color Urine Appearance (Clear) Urine pH (5.0-8.0) Ur Specific [place] (1.001-1.035) Urine Protein (Negative) Urine Glucose (UA) (Negative) Urine Ketones (Negative) Urine Blood (Negative) Urine Nitrite (Negative) Urine Bilirubin (Negative) Urine Urobilinogen (<2.0) mg/dL Ur Leukocyte Esterase (Negative) Urine RBC (0-5) /hpf Urine WBC (0-5) /hpf Urine Mucus (None) /hpf 05/15/21 05/15/21 05/15/21 Range/Units 12:00 12:00 13:13 WBC (3.8-10.6) k/uL RBC (4.30-5.90) m/uL Hgb (13.0-17.5) gm/dL Hct (39.0-53.0) % MCV (80.0-100.0) fL MCH (25.0-35.0) pg MCHC (31.0-37.0) g/dL RDW (11.5-15.5) % Plt Count (150-450) k/uL MPV Neutrophils % % Lymphocytes % % Monocytes % % Eosinophils % % Basophils % % Neutrophils # (1.3-7.7) k/uL Lymphocytes # (1.0-4.8) k/uL Monocytes # (0-1.0) k/uL Eosinophils # (0-0.7) k/uL Basophils # (0-0.2) k/uL PT (9.0-12.0) sec INR (<1.2) APTT (22.0-30.0) sec Sodium (137-145) mmol/L Potassium (3.5-5.1) mmol/L Chloride (98-107) mmol/L Carbon Dioxide (22-30) mmol/L Anion Gap mmol/L BUN (9-20) mg/dL Creatinine (0.66-1.25) mg/dL Est GFR (CKD-EPI)AfAm (>60 ml/min/1.73 sqM) Est GFR (CKD-EPI)NonAf (>60 ml/min/1.73 sqM) Glucose (74-99) mg/dL Plasma Lactic Acid Evan 1.3 (0.7-2.0) mmol/L Calcium (8.4-10.2) mg/dL Phosphorus (2.5-4.5) mg/dL Magnesium (1.6-2.3) mg/dL Total Bilirubin (0.2-1.3) mg/dL AST (17-59) U/L ALT (4-49) U/L Alkaline Phosphatase (38-126) U/L Troponin I <0.012 (0.000-0.034) ng/mL NT-Pro-B Natriuret Pep 690 pg/mL Total Protein (6.3-8.2) g/dL Albumin (3.5-5.0) g/dL TSH (0.465-4.680) mIU/L Urine Color Urine Appearance (Clear) Urine pH (5.0-8.0) Ur Specific Newport (1.001-1.035) Urine Protein (Negative) Urine Glucose (UA) (Negative) Urine Ketones (Negative) Urine Blood (Negative) Urine Nitrite (Negative) Urine Bilirubin (Negative) Urine Urobilinogen (<2.0) mg/dL Ur Leukocyte Esterase (Negative) Urine RBC (0-5) /hpf Urine WBC (0-5) /hpf Urine Mucus (None) /hpf 05/15/21 Range/Units 13:32 WBC (3.8-10.6) k/uL RBC (4.30-5.90) m/uL Hgb (13.0-17.5) gm/dL Hct (39.0-53.0) % MCV (80.0-100.0) fL MCH (25.0-35.0) pg MCHC (31.0-37.0) g/dL RDW (11.5-15.5) % Plt Count (150-450) k/uL MPV Neutrophils % % Lymphocytes % % Monocytes % % Eosinophils % % Basophils % % Neutrophils # (1.3-7.7) k/uL Lymphocytes # (1.0-4.8) k/uL Monocytes # (0-1.0) k/uL Eosinophils # (0-0.7) k/uL Basophils # (0-0.2) k/uL PT (9.0-12.0) sec INR (<1.2) APTT (22.0-30.0) sec Sodium (137-145) mmol/L Potassium (3.5-5.1) mmol/L Chloride (98-107) mmol/L Carbon Dioxide (22-30) mmol/L Anion Gap mmol/L BUN (9-20) mg/dL Creatinine (0.66-1.25) mg/dL Est GFR (CKD-EPI)AfAm (>60 ml/min/1.73 sqM) Est GFR (CKD-EPI)NonAf (>60 ml/min/1.73 sqM) Glucose (74-99) mg/dL Plasma Lactic Acid Evan (0.7-2.0) mmol/L Calcium (8.4-10.2) mg/dL Phosphorus (2.5-4.5) mg/dL Magnesium (1.6-2.3) mg/dL Total Bilirubin (0.2-1.3) mg/dL AST (17-59) U/L ALT (4-49) U/L Alkaline Phosphatase (38-126) U/L Troponin I (0.000-0.034) ng/mL NT-Pro-B Natriuret Pep pg/mL Total Protein (6.3-8.2) g/dL Albumin (3.5-5.0) g/dL TSH (0.465-4.680) mIU/L Urine Color Yellow Urine Appearance Clear (Clear) Urine pH 5.5 (5.0-8.0) Ur Specific Newport 1.018 (1.001-1.035) Urine Protein Negative (Negative) Urine Glucose (UA) Negative (Negative) Urine Ketones Negative (Negative) Urine Blood Trace H (Negative) Urine Nitrite Negative (Negative) Urine Bilirubin Negative (Negative) Urine Urobilinogen <2.0 (<2.0) mg/dL Ur Leukocyte Esterase Negative (Negative) Urine RBC 5 (0-5) /hpf Urine WBC 1 (0-5) /hpf Urine Mucus Few H (None) /hpf Disposition Clinical Impression: Bacteremia, Weakness, Night sweats, Rigors, Lymphoma, Leukocytosis Disposition: ADMITTED IP TO THIS HOSP Condition: Fair Is patient prescribed a controlled substance at d/c from ED?: No Time of Disposition: 17:45 Decision Date: 05/15/21 Decision Time: 17:46
[2021-05-15 13:34] LABS: Basophils # (A) 0.1 k/uL (0-0.2); Basophils % (A) 1 %; Eosinophils # (A) 0.2 k/uL (0-0.7); Eosinophils % (A) 1 %; HCT 42.4 % (39.0-53.0); HGB 13.7 gm/dL (13.0-17.5); Lymphocytes # (A) 1.6 k/uL (1.0-4.8); Lymphocytes % (A) 10 %; MCH 31.5 pg (25.0-35.0); MCHC 32.3 g/dL (31.0-37.0); MCV 97.5 fL (80.0-100.0); Mean Platelet Volume 9.2; Monocytes # (A) 0.7 k/uL (0-1.0); Monocytes % (A) 4 %; Neutrophils # (A) 13.6 k/uL (1.3-7.7); Neutrophils % (A) 82 %; Platelet Count 391 k/uL (150-450); RBC 4.35 m/uL (4.30-5.90); RDW 12.3 % (11.5-15.5); WBC 16.5 k/uL (3.8-10.6)
[2021-05-15 13:47] LABS: Albumin 3.6 g/dL (3.5-5.0); Calcium 8.8 mg/dL (8.4-10.2); Magnesium 2.1 mg/dL (1.6-2.3); Potassium 4.4 mmol/L (3.5-5.1); Total Bilirubin 0.9 mg/dL (0.2-1.3); Total Protein 7.1 g/dL (6.3-8.2)
[2021-05-15 13:53] LABS: Appearance,Urine Clear (Clear); Bilirubin,Urine Negative (Negative); Blood,Urine Trace (Negative); Color,Urine Yellow; Glucose,Urine (UA) Negative (Negative); Ketones,Urine Negative (Negative); Leukocyte Esterase,Urine Negative (Negative); Mucus,Urine Few /hpf; Nitrite,Urine Negative (Negative); PH, Urine 5.5 (5.0-8.0); Protein,Urine Negative (Negative); RBC,Urine 5 /hpf (0-5); Specific Gravity,Urine 1.018 (1.001-1.035); Urobilinogen,Urine <2.0 mg/dL (<2.0); WBC,Urine 1 /hpf (0-5)
[2021-05-15 13:57] LABS: Partial Thromboplastin Time 28.1 sec (22.0-30.0); Prothrombin Time 10.6 sec (9.0-12.0)
[2021-05-15] MEDS ORDERED: ONDANSETRON 4 MG/2 ML VIAL IVP PRN (17:48)
--- NOTE | 2021-05-15 18:01 | XR ---
EXAMINATION TYPE: XR chest 2V DATE OF EXAM: 05/15/2021 5:49 PM COMPARISON: Chest radiograph 05/12/2021 TECHNIQUE: XR chest 2V Frontal and lateral views of the chest. CLINICAL INDICATION:Male, 75 years old with history of Weakness; FINDINGS: Lungs/Pleura: There is no evidence of pleural effusion, focal consolidation, or pneumothorax. Pulmonary vascularity: Unremarkable. Heart/mediastinum: Cardiomediastinal silhouette is unremarkable. Musculoskeletal: No acute osseous pathology. IMPRESSION: No acute cardiopulmonary disease/process.
[2021-05-15] MEDS: NON FORMULARY DRUG (Turmeric Root Extract [Turmeric] 500 MG Capsule) PO SCH (18:52)
[2021-05-15] MEDS: MULTIVITAMINS, THERA 1 EACH TAB PO SCH (18:52)
[2021-05-15] MEDS: GENTLE IRON PO SCH (18:52)
[2021-05-15] MEDS: SODIUM CHLORIDE 0.9% 1,000 ML IV SCH (19:21)
[2021-05-15] MEDS ORDERED: VANCOMYCIN IV PER PHARMACY 1 EACH MISC MISCELLANE PRN (19:43)
[2021-05-15] MEDS: FLECAINIDE 50 MG TAB PO SCH (22:00)
[2021-05-15] MEDS: APIXABAN 5 MG TAB PO SCH (22:00)
--- NOTE | 2021-05-15 22:05 | P.HPIM ---
History of Present Illness H&P Date: 05/15/21 The patient is a 75-year-old male with a PMH of lymphoma (initially diagnosed 8 years ago, subsequent remission with relapse 8 months ago under left eye, status post radiation with indeterminate follow-up PET scan), A. fib on Eliquis, asthma, and BPH who presents to the emergency room with complaints of night sweats, fatigue, poor appetite, and chills. Patient reports that symptoms started roughly 10 days ago and have gradually progressed. He reports significant amounts of night sweats which soak his entire bed. He denied any documented fevers however. Denied experiencing abdominal pain, diarrhea, cough, headaches, urinary complaints, focal weakness, nausea, vomiting, or shortness of breath. The patients PCP ordered blood culture this past Saturday which resulted positive for gram-positive cocci, following which he was sent to the emergency room. The patient reports no active complaints at the time of interview aside from those listed above. Chest x-ray was unremarkable. EKG reveals sinus rhythm with first-degree AV block at 75 bpm with borderline left axis deviation. Laboratory evaluation was remarkable for WBC count 16.5, alk phos 248, and ALT 84. UA was unremarkable. Review of systems: Pertinent positives and negatives as discussed in HPI, a complete review of systems was performed and all other systems are negative. Physical examination: General: non toxic, no distress, appears at stated age, overweight Derm: no unusual rashes/lesions no unusual ecchymoses, warm, dry Head: atraumatic, normocephalic, symmetric Eyes: EOMI, no lid lag, anicteric sclera, pupils equal round reactive to light ENT: Nose and ears atraumatic, no thrush, no pharyngeal erythema Neck: No thyromegaly, no cervical lymphadenopathy, trachea midline, supple Mouth: no lip lesion, mucus membranes moist Cardiovascular: S1S2 reg, no murmur, positive posterior tibial pulse bilateral, no edema, capillary refill less than 2 seconds Lungs: CTA bilateral, no rhonchi, no rales , no accessory muscle use Abdominal: soft, nontender to palpation, no guarding, no appreciable organomegaly, normal bowel sounds Ext: no gross muscle atrophy, muscle strength 5 out of 5 in all 4 extremities grossly, no contractures, Neuro: CN II-XI grossly intact, light touch intact all 4 extremities, finger to nose within normal limits, Psych: Alert, oriented, appropriate affect Assessment/plan Blood cultures positive for gram-positive cocci -Bacteremia versus contaminant -The patient's symptoms may be secondary to relapse of lymphoma as patient had an indeterminate PET scan 6 months ago -Continue with vancomycin for now -Repeat cultures drawn -Oncology and infectious disease consulted -IV fluids -If positive for S. aureus, patient will need Echo Chronic conditions: A. fib, asthma, BPH -Continue with home meds DVT prophylaxis -Eliquis The patient is admitted with an anticipated greater than 2 midnight stay for evaluation of bacteremia. CODE STATUS: Full code Discussed with: Patient Anticipated discharge date: 05/[address]: Home Past Medical History Past Medical History: Atrial Fibrillation, Cancer, Osteoarthritis (OA) Additional Past Medical History / Comment(s): Mantle Lymphoma, Basal Cell Carcinoma Oct 2012 (in remission), hx Bronchitis. aortic aneurysm History of Any Multi-Drug Resistant Organisms: None Reported Past Surgical History: Hernia Repair, Joint Replacement Additional Past Surgical History / Comment(s): Removal of skin cancer, bone marrow transplant, right knee replacement Past Anesthesia/Blood Transfusion Reactions: No Reported Reaction Past Psychological History: No Psychological Hx Reported Smoking Status: Never smoker Past Alcohol Use History: None Reported Past Drug Use History: None Reported - Past Family History Brother(s) Family Medical History: Cancer Additional Family Medical History / Comment(s): . Father Family Medical History: No Reported History Additional Family Medical History / Comment(s): Father was healthy and lived to be 95 yrs old. Mother Family Medical History: Vascular Disorder Additional Family Medical History / Comment(s): Mother at the age of 74 yrs from a ruptured aortic aneurysm. Son(s) Additional Family Medical History / Comment(s): Patient has 2 sons with no major medical problems. Patient doesn't have any sisters. Medications and Allergies Home Medications Medication Instructions Recorded Confirmed Type Meloxicam 7.5 mg PO DAILY 01/12/14 05/15/21 History Gentle Iron 28 1 cap PO Q48H 03/03/19 05/15/21 History Magnesium Gluconate 100mg 100 mg PO DAILY 03/03/19 05/15/21 History Turmeric Root Extract [Turmeric] 500 mg PO Q48H 03/03/19 05/15/21 History Apixaban [Eliquis] 5 mg PO BID #60 tab 03/05/19 05/15/21 Rx Multivitamins, Thera [Multivitamin 1 tab PO Q48H 04/20/19 05/15/21 History (formulary)] Diltiazem Cd [Cardizem CD] 180 mg PO QAM 10/30/19 05/15/21 History Flecainide Acetate [Tambocor] 100 mg PO BID 12/17/19 05/15/21 History Cholecalciferol [Vitamin D3 (25 25 mcg PO DAILY 08/31/20 05/15/21 History Mcg = 1000 Iu)] Glucosam/Amador-Msm1/C/Julio/Bosw 1 tab PO BID 05/15/21 05/15/21 History [Glucosamine-Chondroitin Tablet] Allergies Allergy/AdvReac Type Severity Reaction Status Date / Time Penicillins Allergy Severe Rash/Hives Verified 05/15/21 14:13 over entire body anidulafungin AdvReac Chest Verified 05/15/21 14:14 Pain/Severe Arm pain with infusion benzonatate AdvReac Dyspnea Verified 05/15/21 14:13 [From Harper Yanez] Physical Exam Vitals: Vital Signs Temp Pulse Resp BP Pulse Ox 05/15/21 18:41 98.5 F 88 14 118/64 100 05/15/21 15:17 99.4 F 80 14 120/67 95 05/15/21 12:11 98.7 F 78 14 103/62 97 05/15/21 11:49 97.4 F L 74 16 120/69 98 Intake and Output 05/15/21 05/15/21 05/15/21 06:59 14:59 22:59 Other: Weight 95.254 kg Results CBC & Chem 7: 05/15/21 12:00 05/15/21 12:00 Labs: Abnormal Lab Results - Last 24 Hours (Table) 05/15/21 05/15/21 05/15/21 Range/Units 12:00 12:00 13:32 WBC 16.5 H (3.8-10.6) k/uL Neutrophils # 13.6 H (1.3-7.7) k/uL Sodium 135 L (137-145) mmol/L ALT 84 H (4-49) U/L Alkaline Phosphatase 248 H (38-126) U/L Urine Blood Trace H (Negative) Urine Mucus Few H (None) /hpf
[2021-05-15] MEDS: VANCOMYCIN 1,500 MG in SODIUM CHLORIDE 0.9% 250 ML IVPB SCH (22:56)
[2021-05-15] MEDS: NON FORMULARY DRUG (Glucosam/Chon-Msm1/C/Mang/Bosw [Glucosamine-Chondroitin Tablet] 1 EACH PO SCH (23:02)
[2021-05-16] MEDS: SODIUM CHLORIDE 0.9% 1,000 ML IV SCH ×2 (01:42→19:57)
[2021-05-16] MEDS: ACETAMINOPHEN TAB 325 MG TAB PO PRN (02:14)
[2021-05-16] MEDS: MELOXICAM 7.5 MG TAB PO SCH (08:14)
[2021-05-16] MEDS: APIXABAN 5 MG TAB PO SCH ×2 (08:14→22:27)
[2021-05-16] MEDS: FLECAINIDE 50 MG TAB PO SCH ×2 (08:14→22:26)
[2021-05-16] MEDS: CHOLECALCIFEROL 25 MCG (1000 IU) TABLET PO SCH (08:14)
[2021-05-16] MEDS ORDERED: PANTOPRAZOLE 40 MG/10 ML VIAL IV SCH (09:00)
[2021-05-16 09:28] LABS: Basophils # (A) 0.05 X 10*3/uL (0.00-0.10); Basophils % (A) 0.3 %; Eosinophils # (A) 0.27 X 10*3/uL (0.04-0.35); Eosinophils % (A) 1.5 %; HCT 35.8 % (39.6-50.0); HGB 11.3 g/dL (13.0-17.0); Immature Grans, Automated 0.6 %; Lymphocytes # (A) 1.81 X 10*3/uL (0.90-5.00); Lymphocytes % (A) 9.8 %; MCH 30.5 pg (27.0-32.0); MCHC 31.6 g/dL (32.0-37.0); MCV 96.8 fL (80.0-97.0); Mean Platelet Volume 11.2 fL (9.5-12.2); Monocytes # (A) 0.87 X 10*3/uL (0.20-1.00); Monocytes % (A) 4.7 %; NRBC Per 100 WBC 0 /100 WBCS (0.0-0.0); Neutrophils # (A) 15.41 X 10*3/uL (1.80-7.70); Neutrophils % (A) 83.1 %; Platelet Count 337 X 10*3/uL (140-440); RDW 13.2 % (11.5-14.5); WBC 18.52 X 10*3/uL (4.50-10.00)
[2021-05-16] MEDS: VANCOMYCIN 1,500 MG in SODIUM CHLORIDE 0.9% 250 ML IVPB SCH ×2 (09:34→22:27)
[2021-05-16] MEDS: DILTIAZEM CD 180 MG CAP.ER.24H PO SCH (09:34)
[2021-05-16] MEDS: NON FORMULARY DRUG (Glucosam/Chon-Msm1/C/Mang/Bosw [Glucosamine-Chondroitin Tablet] 1 EACH PO SCH ×2 (09:38→22:14)
[2021-05-16] MEDS: MAGNESIUM GLUCONATE PO SCH (09:38)
--- NOTE | 2021-05-16 13:12 | P.PN ---
Subjective Progress Note Date: 05/16/21 The patient is a 75-year-old male with a PMH of lymphoma (initially diagnosed 8 years ago, subsequent remission with relapse 8 months ago under left eye, status post radiation with indeterminate follow-up PET scan), A. fib on Eliquis, asthma, and BPH who presents to the emergency room with complaints of night sweats, fatigue, poor appetite, and chills. Patient reports that symptoms started roughly 10 days ago and have gradually progressed. He reports significant amounts of night sweats which soak his entire bed. He denied any documented fevers however. Denied experiencing abdominal pain, diarrhea, cough, headaches, urinary complaints, focal weakness, nausea, vomiting, or shortness of breath. The patients PCP ordered blood culture this past Saturday which resulted positive for gram-positive cocci, following which he was sent to the emergency room. Patient's blood culture from outpatient are finalized and have grown Micrococcus species which is likely a contaminant. Infectious disease consult pending. I discussed with hematology as patient will likely need lymphoma workup Patient this morning denies any acute complaints. No acute issues overnight. Patient has been afebrile since admission. His WBC is increasing and is neutrophil dominant. Objective - Vital Signs Vital signs: Vital Signs Temp 97.5 F L 05/16/21 08:12 Pulse 80 05/16/21 08:12 Resp 16 05/16/21 08:12 BP 100/67 05/16/21 08:12 Pulse Ox 98 05/16/21 08:12 Intake & Output 05/15/21 05/16/21 05/16/21 18:59 06:59 18:59 Intake Total 750 118 Balance 750 118 Weight 95.254 kg 95.254 kg Intake: Intake, IV Titration 750 Amount Sodium Chloride 0.9% 1, 500 000 ml @ 75 mls/hr IV . 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 - Moving all 4 extremities spontaneously Psych - Calm and cooperative - Labs CBC & Chem 7: 05/16/21 05:21 05/15/21 12:00 Labs: Abnormal Lab Results - Last 24 Hours (Table) 05/15/21 05/15/21 05/15/21 Range/Units 12:00 12:00 13:32 WBC 16.5 H (3.8-10.6) k/uL RBC (4.40-5.60) X 10*6/uL Hgb (13.0-17.0) g/dL Hct (39.6-50.0) % MCHC (32.0-37.0) g/dL Immature Gran # (0.00-0.04) X 10*3/uL Neutrophils # 13.6 H (1.3-7.7) k/uL Sodium 135 L (137-145) mmol/L ALT 84 H (4-49) U/L Alkaline Phosphatase 248 H (38-126) U/L Urine Blood Trace H (Negative) Urine Mucus Few H (None) /hpf 05/16/21 Range/Units 05:21 WBC 18.52 H (3.8-10.6) k/uL RBC 3.70 L (4.40-5.60) X 10*6/uL Hgb 11.3 L (13.0-17.0) g/dL Hct 35.8 L (39.6-50.0) % MCHC 31.6 L (32.0-37.0) g/dL Immature Gran # 0.11 H (0.00-0.04) X 10*3/uL Neutrophils # 15.41 H (1.3-7.7) k/uL Sodium (137-145) mmol/L ALT (4-49) U/L Alkaline Phosphatase (38-126) U/L Urine Blood (Negative) Urine Mucus (None) /hpf Assessment and Plan Assessment: 2 out of 2 Blood cultures positive for micrococcus species -Likely a contaminant -Resume vancomycin -Follow up repeat blood cultures (antibiotic in the ED was given at 1338 and blood cultures were obtained at 12 PM so blood cultures were done before antibiotics were given) -> negative to date Night sweats and above -Likely due to bacteremia since blood cultures appear to be a contaminant -Hematology consult to rule out recurrent lymphoma Chronic conditions: A. fib, asthma, BPH -Continue with home meds DVT prophylaxis -Eliquis The patient is admitted with an anticipated greater than 2 midnight stay for evaluation of bacteremia. CODE STATUS: Full code Discussed with: Patient Anticipated discharge date: 1-[address]: Home
[2021-05-16] MEDS: IOPAMIDOL CONTRAST (ORAL USE) VIAL PO PRN ×2 (14:58→16:04)
--- NOTE | 2021-05-16 17:07 | P.CONS ---
History of Present Illness - Reason for Consult Consult date: 05/16/21 lymphoma Requesting physician: Fredy Patel - Chief Complaint weakness, positive blood cultures - History of Present Illness Mister Jackson is a pleasant 75-year-old male patient of Dr. 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 He was seen by Dr. Porter at [facility] on 12/08/2012 who recommended aggressive approach to his disease. Started Maxi RCHOP on 12/23/2012, he tolerated the first treatment very well,and his neutropenia resolved. He had Rituxan and High dose Marge-c on 01/13/2013 as inpatient which he tolerated very well. Cycle#2 part A started on 02/03/2013, he tolerated it well. He had cycle#2, part B on 02/27/2013 which he tolerated well. Repeat CT CAP at [facility] revealed excellent response. He started cycle # 3 part A on 03/19/2013 followed by neulasta. He had cycle#3 part B on 04/09/2013. He received neupogen followed by stem cell collection at [facility], he had stem cell transplant at [facility] on 05/04/2013. He had a repeat PET scan at [facility] on 05/24/2014 which revealed no evidence of disease. he continued to do well on follow-up. He was placed on eliquis 02/2019 for A. fib. He received Feraheme for iron deficiency, endoscopy normal. He noticed a subcutanous lesion left maxilla, saw Dr. Britt, biopsy 09/21/2020 which was positive for mantle cell lymphoma. PET 10/05/20 at [facility] revealed involvement of left maxilla area only and radiation therapy was recommended. BM Bx and asp 10/19/2020 was negative. Completed XRT to left maxilla lesion at [facility] on 11/24/2020. 01/18/2021 PET revealed very mild residual uptake in left maxilla, otherwise negative. Patient was seen in the office 4 days ago for acute visit with complaints of sore throat, sweats and general malaise. Infection work up did show positive blood cultures, negative for covid. Patient was recommended to go to emergency department. Be seen CMP overall within normal limits IgG levels normal. Patient denies fevers or chills, no changes in energy, unintentional weight loss, appetite is fair, denies chest pain, abdominal pain, rashes, acute changes in bowel or bladder habits. Review of Systems 14 point review of systems is negative except as stated in HPI Past Medical History Past Medical History: Atrial Fibrillation, Cancer, Osteoarthritis (OA) Additional Past Medical History / Comment(s): Mantle Lymphoma, Basal Cell Carc inoma Oct 2012 (in remission), hx Bronchitis. aortic aneurysm History of Any Multi-Drug Resistant Organisms: None Reported Past Surgical History: Hernia Repair, Joint Replacement Additional Past Surgical History / Comment(s): Removal of skin cancer, bone marrow transplant, right knee replacement Past Anesthesia/Blood Transfusion Reactions: No Reported Reaction Past Psychological History: No Psychological Hx Reported Additional Psychological History / Comment(s): Pt resides with his spouse. He has a nebulizer. He is independent. Smoking Status: Never smoker Past Alcohol Use History: None Reported Past Drug Use History: None Reported - Past Family History Brother(s) Family Medical History: Cancer Additional Family Medical History / Comment(s): . Father Family Medical History: No Reported History Additional Family Medical History / Comment(s): Father was healthy and lived to be 95 yrs old. Mother Family Medical History: Vascular Disorder Additional Family Medical History / Comment(s): Mother at the age of 74 yrs from a ruptured aortic aneurysm. Son(s) Additional Family Medical History / Comment(s): Patient has 2 sons with no major medical problems. Patient doesn't have any sisters. Medications and Allergies Home Medications Medication Instructions Recorded Confirmed Type Meloxicam 7.5 mg PO DAILY 01/12/14 05/15/21 History Gentle Iron 28 1 cap PO Q48H 03/03/19 05/15/21 History Magnesium Gluconate 100mg 100 mg PO DAILY 03/03/19 05/15/21 History Turmeric Root Extract [Turmeric] 500 mg PO Q48H 03/03/19 05/15/21 History Apixaban [Eliquis] 5 mg PO BID #60 tab 03/05/19 05/15/21 Rx Multivitamins, Thera [Multivitamin 1 tab PO Q48H 04/20/19 05/15/21 History (formulary)] Diltiazem Cd [Cardizem CD] 180 mg PO QAM 10/30/19 05/15/21 History Flecainide Acetate [Tambocor] 100 mg PO BID 12/17/19 05/15/21 History Cholecalciferol [Vitamin D3 (25 25 mcg PO DAILY 08/31/20 05/15/21 History Mcg = 1000 Iu)] Glucosam/Amador-Msm1/C/Julio/Bosw 1 tab PO BID 05/15/21 05/15/21 History [Glucosamine-Chondroitin Tablet] Allergies Allergy/AdvReac Type Severity Reaction Status Date / Time Penicillins Allergy Severe Rash/Hives Verified 05/15/21 14:13 over entire body anidulafungin AdvReac Chest Verified 05/15/21 14:14 Pain/Severe Arm pain with infusion benzonatate AdvReac Dyspnea Verified 05/15/21 14:13 [From Harper Yanez] Physical Exam Vitals: Vital Signs Temp Pulse Pulse Resp BP BP Pulse Ox 05/16/21 08:12 97.5 F L 80 16 100/67 98 05/16/21 08:09 83 134/73 97 05/16/21 04:45 98.3 F 85 20 108/57 05/16/21 00:45 98.8 F 74 20 136/85 98 05/15/21 22:00 74 16 103/63 96 05/15/21 18:41 98.5 F 88 14 118/64 100 05/15/21 15:17 99.4 F 80 14 120/67 95 05/15/21 12:11 98.7 F 78 14 103/62 97 05/15/21 11:49 97.4 F L 74 16 120/69 98 Intake and Output 05/15/21 05/16/21 05/16/21 22:59 06:59 14:59 Intake Total 750 118 Balance 750 118 Intake: Intake, IV Titration 750 Amount Sodium Chloride 0.9% 1, 500 000 ml @ 75 mls/hr IV . [id number] [facility] Rx#:[id number] Vancomycin 1,500 mg In 250 Sodium Chloride 0.9% 250 ml @ 125 mls/hr IVPB Q12H [facility] Rx#:[id number] Oral 118 Other: # Voids 1 Weight 95.254 kg - Constitutional General appearance: average body habitus, cooperative, no acute distress - EENT Eyes: anicteric sclerae, EOMI ENT: hearing grossly normal, normal oropharynx - Neck Neck: no lymphadenopathy - Respiratory Respiratory: bilateral: CTA - Cardiovascular Rhythm: regular Heart sounds: normal: S1, S2 Abnormal Heart Sounds: no systolic murmur, no diastolic murmur, no rub, no S3 Gallop, no S4 Gallop, no click, no other leg Peripheral Edema: bilateral: None - Gastrointestinal General gastrointestinal: no absent bowel sounds, no decreased bowel sounds, no distended, no hepatomegaly, no hyperactive bowel sounds, normal bowel sounds, no organomegaly, no rigid, no scaphoid, soft, no splenomegaly, no tenderness, no umbilical hernia, no ventral hernia - Integumentary Integumentary: normal - Neurologic Neurologic: CNII-XII intact - Musculoskeletal Musculoskeletal: generalized weakness, strength equal bilaterally - Psychiatric Psychiatric: A&O x's 3, appropriate affect, intact judgment & insight Results CBC & Chem 7: 05/16/21 05:21 05/15/21 12:00 Labs: Abnormal Lab Results - Last 24 Hours (Table) 05/15/21 05/15/21 05/15/21 Range/Units 12:00 12:00 13:32 WBC 16.5 H (3.8-10.6) k/uL Neutrophils # 13.6 H (1.3-7.7) k/uL Sodium 135 L (137-145) mmol/L ALT 84 H (4-49) U/L Alkaline Phosphatase 248 H (38-126) U/L Urine Blood Trace H (Negative) Urine Mucus Few H (None) /hpf Chest x-ray: report reviewed Assessment and Plan (1) Bacteremia Narrative/Plan: Admitted for the same. ID consulted. Empiric antibiotics. Current Visit: Yes Status: Acute Priority: High Code(s): R78.81 - BACTEREMIA SNOMED Code(s): 8675058 (2) Mantle cell lymphoma Narrative/Plan: Patient is due to see Dr. Gan in just about 1-1/2 weeks, at which time they were going to discuss possible sooner imaging because of mild residual findings of the jaw imaging in Dec. Keep this appointment Did check [facility] portal, next upcoming appointment is in June. Current Visit: Yes Status: Chronic Priority: Medium Code(s): C83.10 - MANTLE CELL LYMPHOMA, UNSPECIFIED SITE SNOMED Code(s): 462102564 Plan: Doctor attests: I have seen and examined pt, performed a history and physical examination of this patient, developed impression and plan of care. Discussed with dictator. I agree with dictators note, documented as a scribe. Time with Patient: Greater than 30 (counseling and coordinating care)
--- NOTE | 2021-05-16 18:05 | CT ---
EXAMINATION TYPE: CT abdomen pelvis w con CT DLP: 1575.80 mGycm, Automated exposure control for dose reduction was used. DATE OF EXAM: 05/16/2021 5:48 PM COMPARISON: CT abdomen MRCP 09/27/2020, CT abdomen pelvis and 08/31/2020. CLINICAL INDICATION:Male, 75 years old with history of leukocytosis; TECHNIQUE: Standard CT of the abdomen pelvisfollowing the administration of 100 cc of Isovue 300 IV contrast material and oral contrast. Coronal and sagittal reformats were performed. FINDINGS: LOWER CHEST: Unremarkable ABDOMEN LIVER: Left hepatic lobe cyst measuring 18 mm. GALLBLADDER AND BILE DUCTS: Layering increased densities within the lumen consistent with gallstones are present. PANCREAS: Unremarkable. SPLEEN: Unremarkable. ADRENAL GLANDS: Unremarkable. KIDNEYS AND URETERS: No evidence of hydronephrosis or renal calculus. The ureters are unremarkable. Bilateral renal cysts measuring up to 52 mm on the left and 16 mm on the right. Additional left perip elvic renal cyst. PELVIS BLADDER: Unremarkable REPRODUCTIVE: Unremarkable. ABDOMEN & PELVIS STOMACH AND BOWEL: No evidence of bowel obstruction or wall thickening. PERITONEUM: No evidence of pneumoperitoneum or free fluid. VASCULATURE: Moderate atherosclerotic calcifications are present throughout the abdominal aorta and i ts branches. MUSCULOSKELETAL: Mild disc degeneration changes are present throughout the thoracolumbar spine. LYMPH NODES: No gross evidence for lymphadenopathy. SOFT TISSUE/ABDOMINAL WALL: Fat filled inguinal hernias bilaterally. IMPRESSION: 1. No evidence for acute infectious process within the abdomen and pelvis. 2. Cholelithiasis. 3. Bilateral inguinal hernias.
--- NOTE | 2021-05-17 00:04 | P.CONS ---
History of Present Illness - Reason for Consult Consult date: 05/16/21 Bacteremia Requesting physician: Zack Watt - Chief Complaint Weakness x few days - History of Present Illness Patient is a 75-year-old male with a past medical history significant for mantle cell lymphoma diagnosed in 2012, subsequently have remission with relapse 8 months ago under the left eye s/p radiation with intermediate follow- up PET scan patient apparently has been evaluated by his oncologist on Saturday with symptoms of not feeling well poor appetite and chills patient did have a blood culture drawn at his oncologist office on 12 May 2021 which apparently came back positive with gram-positive cocci hence the patient was advised to come to the hospital on arrival to the ER the patient was afebrile and no fever had recorded subsequently patient did have white count of 16.5 with a left shift creatinine was normal liver enzymes are 80 mildly elevated urine has been negative patient did have a negative chest x-ray patient was started on vancomy rhianna and Rocephin blood culture has been repeated patient admitted to the hospital infectious disease was consulted for further management of antibiotic therapy, at the time of evaluation patient denies having any headache or URI symptoms except some sore throat with the patient is attributing one of his chemo patient denies having any chest pain no shortness with minimal cough P denies any nausea no vomiting no abdominal pain no diarrhea no burning or frequency of urine patient do not have a report and did not have any invasive procedure done recently and no dental cleaning Review of Systems Positive point has been mentioned in the HPI rest of the systems are negative Past Medical History Past Medical History: Atrial Fibrillation, Cancer, Osteoarthritis (OA) Additional Past Medical History / Comment(s): Mantle Lymphoma, Basal Cell Carcinoma Oct 2012 (in remission), hx Bronchitis. aortic aneurysm History of Any Multi-Drug Resistant Organisms: None Reported Past Surgical History: Hernia Repair, Joint Replacement Additional Past Surgical History / Comment(s): Removal of skin cancer, bone marrow transplant, right knee replacement Past Anesthesia/Blood Transfusion Reactions: No Reported Reaction Past Psychological History: No Psychological Hx Reported Additional Psychological History / Comment(s): Pt resides with his spouse. He has a nebulizer. He is independent. Smoking Status: Never smoker Past Alcohol Use History: None Reported Past Drug Use History: None Reported - Past Family History Brother(s) Family Medical History: Cancer Additional Family Medical History / Comment(s): . Father Family Medical History: No Reported History Additional Family Medical History / Comment(s): Father was healthy and lived to be 95 yrs old. Mother Family Medical History: Vascular Disorder Additional Family Medical History / Comment(s): Mother at the age of 74 yrs from a ruptured aortic aneurysm. Son(s) Additional Family Medical History / Comment(s): Patient has 2 sons with no major medical problems. Patient doesn't have any sisters. Medications and Allergies Home Medications Medication Instructions Recorded Confirmed Type Meloxicam 7.5 mg PO DAILY 01/12/14 05/15/21 History Gentle Iron 28 1 cap PO Q48H 03/03/19 05/15/21 History Magnesium Gluconate 100mg 100 mg PO DAILY 03/03/19 05/15/21 History Turmeric Root Extract [Turmeric] 500 mg PO Q48H 03/03/19 05/15/21 History Apixaban [Eliquis] 5 mg PO BID #60 tab 03/05/19 05/15/21 Rx Multivitamins, Thera [Multivitamin 1 tab PO Q48H 04/20/19 05/15/21 History (formulary)] Diltiazem Cd [Cardizem CD] 180 mg PO QAM 10/30/19 05/15/21 History Flecainide Acetate [Tambocor] 100 mg PO BID 12/17/19 05/15/21 History Cholecalciferol [Vitamin D3 (25 25 mcg PO DAILY 08/31/20 05/15/21 History Mcg = 1000 Iu)] Glucosam/Amador-Msm1/C/Julio/Bosw 1 tab PO BID 05/15/21 05/15/21 History [Glucosamine-Chondroitin Tablet] Allergies Allergy/AdvReac Type Severity Reaction Status Date / Time Penicillins Allergy Severe Rash/Hives Verified 05/15/21 14:13 over entire body anidulafungin AdvReac Chest Verified 05/15/21 14:14 Pain/Severe Arm pain with infusion benzonatate AdvReac Dyspnea Verified 05/15/21 14:13 [From Harper Yanez] Physical Exam Vitals: Vital Signs Temp Pulse Pulse Resp BP BP Pulse Ox 05/16/21 08:12 97.5 F L 80 16 100/67 98 05/16/21 08:09 83 134/73 97 05/16/21 04:45 98.3 F 85 20 108/57 05/16/21 00:45 98.8 F 74 20 136/85 98 05/15/21 22:00 74 16 103/63 96 05/15/21 18:41 98.5 F 88 14 118/64 100 05/15/21 15:17 99.4 F 80 14 120/67 95 05/15/21 12:11 98.7 F 78 14 103/62 97 05/15/21 11:49 97.4 F L 74 16 120/69 98 Intake and Output 05/15/21 05/16/21 05/16/21 22:59 06:59 14:59 Intake Total 750 118 Balance 750 118 Intake: Intake, IV Titration 750 Amount Sodium Chloride 0.9% 1, 500 000 ml @ 75 mls/hr IV . [id number] [facility] Rx#:[id number] Vancomycin 1,500 mg In 250 Sodium Chloride 0.9% 250 ml @ 125 mls/hr IVPB Q12H [facility] Rx#:[id number] Oral 118 Other: Voiding Method Toilet # Voids 1 Weight 95.254 kg GENERAL DESCRIPTION: An elderly male lying in bed, no distress. No tachypnea or accessory muscle of respiration use. HEENT: Shows Pallor , no scleral icterus. Oral mucous membrane is dry. No pharyngeal erythema or thrush NECK: Trachea central, no thyromegaly. LUNGS: Unlabored breathing. Clear to auscultation anteriorly. No wheeze or crackle. HEART: S1, S2, regular rate and rhythm. No loud murmur ABDOMEN: Soft, no tenderness , guarding or rigidity, no organomegaly EXTREMITIES: No edema of feet. SKIN: No rash, no masses palpable. NEUROLOGICAL: The patient is awake, alert, oriented x3, mood and affect normal. Results CBC & Chem 7: 05/16/21 05:21 05/15/21 12:00 Labs: Abnormal Lab Results - Last 24 Hours (Table) 05/15/21 05/15/21 05/15/21 Range/Units 12:00 12:00 13:32 WBC 16.5 H (3.8-10.6) k/uL RBC (4.40-5.60) X 10*6/uL Hgb (13.0-17.0) g/dL Hct (39.6-50.0) % MCHC (32.0-37.0) g/dL Immature Gran # (0.00-0.04) X 10*3/uL Neutrophils # 13.6 H (1.3-7.7) k/uL Sodium 135 L (137-145) mmol/L ALT 84 H (4-49) U/L Alkaline Phosphatase 248 H (38-126) U/L Urine Blood Trace H (Negative) Urine Mucus Few H (None) /hpf 05/16/21 Range/Units 05:21 WBC 18.52 H (3.8-10.6) k/uL RBC 3.70 L (4.40-5.60) X 10*6/uL Hgb 11.3 L (13.0-17.0) g/dL Hct 35.8 L (39.6-50.0) % MCHC 31.6 L (32.0-37.0) g/dL Immature Gran # 0.11 H (0.00-0.04) X 10*3/uL Neutrophils # 15.41 H (1.3-7.7) k/uL Sodium (137-145) mmol/L ALT (4-49) U/L Alkaline Phosphatase (38-126) U/L Urine Blood (Negative) Urine Mucus (None) /hpf Assessment and Plan (1) Bacteremia Current Visit: Yes Status: Acute Priority: High Code(s): R78.81 - BACTEREMIA SNOMED Code(s): 0976405 Plan: 1patient with a positive blood culture which has been finalized with micrococcus patient is more likely in the skin contaminant as the patient has no clinical disease to go along with so far no fever and initial work-up has been negative including a negative chest x-ray and UA patient abdominal soft on clinical examination and no evidence of any cellulitis. 2we will obtain a CT of abdominal pelvis to rule out any intra-abdominal pathology. 3blood cultures has been repeated and those will be followed. 4continue with vancomycin and Rocephin while waiting for the work-up to be com pleted. at the bedside multiple questions those were answered We will follow on clinical condition and cultures to further adjust medication if needed Thank you for this consultation we will follow the patient along with you Time with Patient: Less than 30
[2021-05-17] MEDS: MELOXICAM 7.5 MG TAB PO SCH (08:04)
[2021-05-17] MEDS: CHOLECALCIFEROL 25 MCG (1000 IU) TABLET PO SCH (08:08)
[2021-05-17] MEDS: APIXABAN 5 MG TAB PO SCH ×2 (08:08→22:56)
[2021-05-17] MEDS: PANTOPRAZOLE 40 MG TABLET PO SCH (08:09)
[2021-05-17] MEDS: DILTIAZEM CD 180 MG CAP.ER.24H PO SCH (08:10)
[2021-05-17] MEDS: FLECAINIDE 50 MG TAB PO SCH ×2 (08:11→22:56)
[2021-05-17] MEDS: VANCOMYCIN 1,500 MG in SODIUM CHLORIDE 0.9% 250 ML IVPB SCH ×2 (08:58→22:56)
[2021-05-17] MEDS: NON FORMULARY DRUG (Glucosam/Chon-Msm1/C/Mang/Bosw [Glucosamine-Chondroitin Tablet] 1 EACH PO SCH ×2 (09:00→22:56)
[2021-05-17] MEDS: MAGNESIUM GLUCONATE PO SCH (09:00)
[2021-05-17 09:36] LABS: Basophils # (A) 0.04 X 10*3/uL (0.00-0.10); Basophils % (A) 0.3 %; Eosinophils # (A) 0.34 X 10*3/uL (0.04-0.35); Eosinophils % (A) 2.3 %; HCT 37.7 % (39.6-50.0); HGB 11.7 g/dL (13.0-17.0); Immature Grans, Automated 0.5 %; Lymphocytes # (A) 1.72 X 10*3/uL (0.90-5.00); Lymphocytes % (A) 11.7 %; MCH 30.4 pg (27.0-32.0); MCV 97.9 fL (80.0-97.0); Mean Platelet Volume 10.9 fL (9.5-12.2); Monocytes # (A) 0.53 X 10*3/uL (0.20-1.00); Monocytes % (A) 3.6 %; NRBC Per 100 WBC 0 /100 WBCS (0.0-0.0); Neutrophils # (A) 12.04 X 10*3/uL (1.80-7.70); Neutrophils % (A) 81.6 %; Platelet Count 328 X 10*3/uL (140-440); RBC 3.85 X 10*6/uL (4.40-5.60); RDW 13.2 % (11.5-14.5); WBC 14.74 X 10*3/uL (4.50-10.00)
[2021-05-17 09:44] LABS: African American GFR (CKD) 99.5 (60.0-200.0); Anion Gap 9.9 mmol/L (10.00-18.00); BUN/Creat Ratio 11.51 Ratio (12.00-20.00); Calcium 8.6 mg/dL (8.7-10.3); Carbon Dioxide 27.2 mmol/L (20.0-27.5); Non-African American GFR(CKD) 85.8 (60.0-200.0); Potassium 4.3 mmol/L (3.5-5.5)
--- NOTE | 2021-05-17 10:59 | ECHOF ---
Referral Reason:Bacteremia MEASUREMENTS -------- HEIGHT: 182.9 cm WEIGHT: 95.3 kg BP: IVSd: 1.3 cm (0.6 - 1.1) LVIDd: 3.4 cm (3.9 - 5.3) LVPWd: 1.5 cm (0.6 - 1.1) IVSs: 1.8 cm LVIDs: 1.4 cm LVPWs: 1.4 cm Ao Diam: 4.2 cm (2.0 - 3.7) AV Cusp: 2.3 cm (1.5 - 2.6) LA Diam: 3.6 cm (2.7 - 3.8) MV EXCURSION: 16.486 mm (> 18.000) MV EF SLOPE: 64 mm/s (70 - 150) EPSS: 2.0 cm MV E Juan Luis: 0.87 m/s MV DecT: 180 ms MV A Juan Luis: 1.01 m/s MV E/A Ratio: 0.86 AR PHT: 907 ms RAP: 5.00 mmHg RVSP: 6.80 mmHg FINDINGS -------- This was a technically adequate study. The left ventricular size is normal. There is mild concentric left ventricular hypertrophy. Overa ll left ventricular systolic function is low-normal with, an EF between 50 - 55 %. The right ventricle is normal in size. The left atrial size is normal. The right atrial size is normal. The aortic valve is trileaflet and appears structurally normal. Trace amount of aortic regurgitatio n. The mitral valve is normal. There is trace mitral regurgitation. The tricuspid valve appears structurally normal. Trace tricuspid regurgitation present. Right maldonado tricular systolic pressure is normal at < 35 mmHg. There is no pulmonic regurgitation present. 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 IVC Not well visulized. There is no pericardial effusion. CONCLUSIONS -------- 1. The left ventricular size is normal. 2. There is mild concentric left ventricular hypertrophy. 3. Overall left ventricular systolic function is low-normal with, an EF between 50 - 55 %. 4. Trace amount of aortic regurgitation. 5. There is trace mitral regurgitation. 6. Trace tricuspid regurgitation present. 7. 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 8. There is no pericardial effusion. BLOCKMAN: Wilma Kumari LINDEN
--- NOTE | 2021-05-17 14:13 | P.PN ---
Subjective Progress Note Date: 05/17/21 Principal diagnosis: Positive blood cultures Awaiting ID recommendations regarding infectious versus contamination. In the interim the patient has been having worsening B symptoms and concern of potential recurrence. Objective - Vital Signs Vital signs: Vital Signs Temp 98 F 05/17/21 09:06 Pulse 100 05/17/21 09:06 Resp 16 05/17/21 09:06 BP 116/73 05/17/21 09:06 Pulse Ox 98 05/17/21 09:06 Intake & Output 05/16/21 05/17/21 05/17/21 18:59 06:59 18:59 Intake Total 118 1790 Balance 118 1790 Intake: Intake, IV Titration 1150 Amount Sodium Chloride 0.9% 1, 900 000 ml @ 75 mls/hr IV . [id number] [facility] Rx#:[id number] Vancomycin 1,500 mg In 250 Sodium Chloride 0.9% 250 ml @ 125 mls/hr IVPB Q12H [facility] Rx#:[id number] Oral 118 640 Other: Voiding Method Toilet Toilet # Voids 2 3 - Exam - Constitutional General appearance: average body habitus, cooperative, no acute distress - EENT Eyes: anicteric sclerae, EOMI ENT: hearing grossly normal, normal oropharynx - Neck Neck: no lymphadenopathy - Respiratory Respiratory: bilateral: CTA - Cardiovascular Rhythm: regular Heart sounds: normal: S1, S2 Abnormal Heart Sounds: no systolic murmur, no diastolic murmur, no rub, no S3 Gallop, no S4 Gallop, no click, no other leg Peripheral Edema: bilateral: None - Gastrointestinal General gastrointestinal: no absent bowel sounds, no decreased bowel sounds, no distended, no hepatomegaly, no hyperactive bowel sounds, normal bowel sounds, no organomegaly, no rigid, no scaphoid, soft, no splenomegaly, no tenderness, no umbilical hernia, no ventral hernia - Integumentary Integumentary: normal - Neurologic Neurologic: CNII-XII intact - Musculoskeletal Musculoskeletal: generalized weakness, strength equal bilaterally - Psychiatric Psychiatric: A&O x's 3, appropriate affect, intact judgment & insight - Labs CBC & Chem 7: 05/17/21 05:14 05/17/21 05:14 Labs: Abnormal Lab Results - Last 24 Hours (Table) 05/16/21 Range/Units 05:21 WBC 18.52 H (4.50-10.00) X 10*3/uL RBC 3.70 L (4.40-5.60) X 10*6/uL Hgb 11.3 L (13.0-17.0) g/dL Hct 35.8 L (39.6-50.0) % MCHC 31.6 L (32.0-37.0) g/dL Immature Gran # 0.11 H (0.00-0.04) X 10*3/uL Neutrophils # 15.41 H (1.80-7.70) X 10*3/uL Microbiology - Last 24 Hours (Table) 05/15/21 12:16 Blood Culture - Preliminary Blood No Growth after 24 hours 05/15/21 12:00 Blood Culture - Preliminary Blood No Growth after 24 hours Assessment and Plan (1) Bacteremia Current Visit: Yes Status: Acute Priority: High Code(s): R78.81 - BACTEREMIA SNOMED Code(s): 3244962 (2) Night sweats Current Visit: Yes Status: Acute Code(s): R61 - GENERALIZED HYPERHIDROSIS SNOMED Code(s): 11958979 (3) Mantle cell lymphoma Current Visit: Yes Status: Chronic Priority: Medium Code(s): C83.10 - MANTLE CELL LYMPHOMA, UNSPECIFIED SITE SNOMED Code(s): 106248896 Plan: - Recheck Liver Function, Alk Phos and pancreatic enzymes - Plan to follow-up with primary oncologist after discharge for imaging as outpatient for concern of progressive/recurrent disease Attest: i have completed the full history and physical, developed the above impression and plan and agree with above dictation, dictated as a scribe
[2021-05-17] MEDS: SODIUM CHLORIDE 0.9% 1,000 ML IV SCH ×2 (14:57→22:56)
--- NOTE | 2021-05-17 14:59 | P.PN ---
Subjective Progress Note Date: 05/17/21 The patient is a 75-year-old male with a PMH of lymphoma (initially diagnosed 8 years ago, subsequent remission with relapse 8 months ago under left eye, status post radiation with indeterminate follow-up PET scan), A. fib on Eliquis, asthma, and BPH who presents to the emergency room with complaints of night sweats, fatigue, poor appetite, and chills. Patient reports that symptoms started roughly 10 days ago and have gradually progressed. He reports significant amounts of night sweats which soak his entire bed. He denied any documented fevers however. Denied experiencing abdominal pain, diarrhea, cough, headaches, urinary complaints, focal weakness, nausea, vomiting, or shortness of breath. The patients PCP ordered blood culture this past Saturday which resulted positive for gram-positive cocci, following which he was sent to the emergency room. Patient's blood culture from outpatient are finalized and have grown Micrococcus species which is likely a contaminant. Repeat blood cultures done on admission are negative to date Patient states that he still has night sweats. Objective - Vital Signs Vital signs: Vital Signs Temp 97.5 F L 05/17/21 12:15 Pulse 76 05/17/21 12:15 Resp 24 05/17/21 12:15 BP 114/70 05/17/21 12:15 Pulse Ox 94 L 05/17/21 12:15 Intake & Output 05/16/21 05/17/21 05/17/21 18:59 06:59 18:59 Intake Total 118 1790 Balance 118 1790 Intake: Intake, IV Titration 1150 Amount Sodium Chloride 0.9% 1, 900 000 ml @ 75 mls/hr IV . 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 INSPECTOR - Moving all 4 extremities spontaneously Psych - Calm and cooperative - Labs CBC & Chem 7: 05/17/21 05:14 05/17/21 05:14 Labs: Abnormal Lab Results - Last 24 Hours (Table) 05/17/21 05/17/21 Range/Units 05:14 05:14 WBC 14.74 H (4.50-10.00) X 10*3/uL RBC 3.85 L (4.40-5.60) X 10*6/uL Hgb 11.7 L (13.0-17.0) g/dL Hct 37.7 L (39.6-50.0) % MCV 97.9 H (80.0-97.0) fL MCHC 31.0 L (32.0-37.0) g/dL Immature Gran # 0.07 H (0.00-0.04) X 10*3/uL Neutrophils # 12.04 H (1.80-7.70) X 10*3/uL Anion Gap 9.90 L (10.00-18.00) mmol/L BUN/Creatinine Ratio 11.51 L (12.00-20.00) Ratio Calcium 8.6 L (8.7-10.3) mg/dL Microbiology - Last 24 Hours (Table) 05/15/21 12:16 Blood Culture - Preliminary Blood No Growth after 24 hours 05/15/21 12:00 Blood Culture - Preliminary Blood No Growth after 24 hours Assessment and Plan Assessment: 2 out of 2 Blood cultures positive for micrococcus species -Likely a contaminant -Resume vancomycin and Rocephin -Follow up repeat blood cultures (antibiotic in the ED was given at 1338 and blood cultures were obtained at 12 PM so blood cultures were done before antibiotics were given) -> negative to date Night sweats and above -Likely due to lymphoma since blood cultures appear to be a contaminant -Patient has follow-up appointments at [facility] for workup regarding recurrent lymphoma Chronic conditions: A. fib, asthma, BPH -Continue with home meds DVT prophylaxis -Eliquis The patient is admitted with an anticipated greater than 2 midnight stay for evaluation of bacteremia. CODE STATUS: Full code Discussed with: Patient Anticipated discharge date: We'll discharge patient tomorrow if repeat blood cultures remain negative Anticipated discharge place: Home
[2021-05-17] MEDS: ACETAMINOPHEN TAB 325 MG TAB PO PRN (17:26)
[2021-05-17] MEDS: MULTIVITAMINS, THERA 1 EACH TAB PO SCH (17:27)
[2021-05-17] MEDS: NON FORMULARY DRUG (Turmeric Root Extract [Turmeric] 500 MG Capsule) PO SCH (17:28)
[2021-05-17] MEDS: GENTLE IRON PO SCH (17:28)
[2021-05-17] MEDS ORDERED: VANCOMYCIN TROUGH DUE 1 EACH MISC MISCELLANE ONE (20:00)
[2021-05-17] MEDS ORDERED: APIXABAN 5 MG TAB ONE (22:00)
[2021-05-17] MEDS ORDERED: FLECAINIDE 50 MG TAB ONE (22:00)
--- NOTE | 2021-05-17 22:19 | P.PN ---
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 On today's evaluation that is 05/17/2021, the patient denies having any fever or chills, denies having any headache no chest pain or shortness of breath or cough no nausea no vomiting. no diarrhea Objective - Vital Signs Vital signs: Vital Signs Temp 98 F 05/17/21 09:06 Pulse 100 05/17/21 09:06 Resp 16 05/17/21 09:06 BP 116/73 05/17/21 09:06 Pulse Ox 98 05/17/21 09:06 Intake & Output 05/16/21 05/17/21 05/17/21 18:59 06:59 18:59 Intake Total 118 1790 Balance 118 1790 Intake: Intake, IV Titration 1150 Amount Sodium Chloride 0.9% 1, 900 000 ml @ 75 mls/hr IV . [id number] [facility] Rx#:[id number] Vancomycin 1,500 mg In 250 Sodium Chloride 0.9% 250 ml @ 125 mls/hr IVPB Q12H [facility] Rx#:[id number] Oral 118 640 Other: Voiding Method Toilet Toilet Toilet # Voids 2 3 - Exam GENERAL DESCRIPTION: An elderly male lying in bed in no distress RESPIRATORY SYSTEM: Unlabored breathing , decreased breath sounds at bases HEART: S1 S2 regular rate and rhythm , ABDOMEN: Soft , no tenderness EXTREMITIES: No edema feet - Labs CBC & Chem 7: 05/17/21 05:14 05/17/21 05:14 Labs: Abnormal Lab Results - Last 24 Hours (Table) 05/17/21 05/17/21 Range/Units 05:14 05:14 WBC 14.74 H (4.50-10.00) X 10*3/uL RBC 3.85 L (4.40-5.60) X 10*6/uL Hgb 11.7 L (13.0-17.0) g/dL Hct 37.7 L (39.6-50.0) % MCV 97.9 H (80.0-97.0) fL MCHC 31.0 L (32.0-37.0) g/dL Immature Gran # 0.07 H (0.00-0.04) X 10*3/uL Neutrophils # 12.04 H (1.80-7.70) X 10*3/uL Anion Gap 9.90 L (10.00-18.00) mmol/L BUN/Creatinine Ratio 11.51 L (12.00-20.00) Ratio Calcium 8.6 L (8.7-10.3) mg/dL Microbiology - Last 24 Hours (Table) 05/15/21 12:16 Blood Culture - Preliminary Blood No Growth after 24 hours 05/15/21 12:00 Blood Culture - Preliminary Blood No Growth after 24 hours Assessment and Plan (1) Bacteremia Current Visit: Yes Status: Acute Priority: High Code(s): R78.81 - BACTEREMIA SNOMED Code(s): 6617032 Plan: 1patient with a positive blood culture which has been finalized with micrococcus patient is more likely in the skin contaminant as the patient has no clinical disease to go along with so far no fever and initial work-up has been negative including a negative chest x-ray and UA patient abdominal soft on clinical examination and no evidence of any cellulitis. 2 CT of abdominal pelvis did not show any acute intra-abdominal pathology. 3blood cultures has been repeated and those are negative so far 4continue with vancomycin and Rocephin while waiting for the work-up to be completed. 5-echocardiogram which shows aortic root dilatation and may benefit from a cardiology evaluation and possible VIC, we will also check CRP sed rate and a pro-calcitonin Time with Patient: Less than 30
[2021-05-18 02:09] LABS: % Iron Saturation 7.84 (15.00-50.00); Amylase 38 U/L (23-121); Iron 16 ug/dL (65-175); Magnesium 2.2 mg/dL (1.5-2.4); Total Iron Binding Capacity 200 ug/dL (228-460)
[2021-05-18 03:08] LABS: ALT 98 U/L (10-49); AST 68 U/L (14-35); Albumin 3.3 g/dL (3.8-4.9); Albumin/Globulin Ratio 1.35 (1.60-3.17); Alkaline Phosphatase 301 U/L (41-126); Bilirubin, Conjugated <0.20 mg/dL (0.20-0.40); Globulin 2.5 g/dL (1.6-3.3); Total Protein 5.8 g/dL (6.2-8.2)
[2021-05-18 04:38] LABS: Lipase 15 U/L (14-60)
[2021-05-18] MEDS: CHOLECALCIFEROL 25 MCG (1000 IU) TABLET PO SCH (08:19)
[2021-05-18] MEDS: PANTOPRAZOLE 40 MG TABLET PO SCH (08:19)
[2021-05-18] MEDS: MELOXICAM 7.5 MG TAB PO SCH (08:19)
[2021-05-18] MEDS: APIXABAN 5 MG TAB PO SCH ×2 (08:19→20:03)
[2021-05-18] MEDS: ACETAMINOPHEN TAB 325 MG TAB PO PRN ×2 (08:19→19:11)
[2021-05-18] MEDS: FLECAINIDE 50 MG TAB PO SCH ×2 (08:21→20:03)
[2021-05-18] MEDS: MAGNESIUM GLUCONATE PO SCH (08:22)
[2021-05-18] MEDS: NON FORMULARY DRUG (Glucosam/Chon-Msm1/C/Mang/Bosw [Glucosamine-Chondroitin Tablet] 1 EACH PO SCH ×2 (08:22→19:51)
[2021-05-18] MEDS: DILTIAZEM CD 180 MG CAP.ER.24H PO SCH (08:22)
[2021-05-18] MEDS: VANCOMYCIN 1,750 MG in SODIUM CHLORIDE 0.9% 500 ML 500 ML IVPB SCH ×2 (09:10→20:01)
[2021-05-18 10:11] LABS: HCT 39.4 % (39.6-50.0); HGB 12.5 g/dL (13.0-17.0); MCH 30.5 pg (27.0-32.0); MCHC 31.7 g/dL (32.0-37.0); MCV 96.1 fL (80.0-97.0); Mean Platelet Volume 11.1 fL (9.5-12.2); NRBC Per 100 WBC 0 /100 WBCS (0.0-0.0); Platelet Count 376 X 10*3/uL (140-440); RDW 13.2 % (11.5-14.5); WBC 22.99 X 10*3/uL (4.50-10.00)
[2021-05-18 10:20] LABS: C Reactive Protein 17.8 mg/dL (0.00-0.80)
[2021-05-18 10:26] LABS: African American GFR (CKD) 97.9 (60.0-200.0); Albumin 3.3 g/dL (3.8-4.9); Albumin/Globulin Ratio 1.27 (1.60-3.17); Anion Gap 12.8 mmol/L (10.00-18.00); BUN/Creat Ratio 11.11 Ratio (12.00-20.00); Calcium 8.6 mg/dL (8.7-10.3); Carbon Dioxide 23.2 mmol/L (20.0-27.5); Globulin 2.6 g/dL (1.6-3.3); Non-African American GFR(CKD) 84.4 (60.0-200.0); Potassium 3.9 mmol/L (3.5-5.5); Total Bilirubin 0.5 mg/dL (0.30-1.20); Total Protein 5.9 g/dL (6.2-8.2)
[2021-05-18 11:46] LABS: Basophils # (A) 0.05 X 10*3/uL (0.00-0.10); Basophils % (A) 0.2 %; Eosinophils # (A) 0.12 X 10*3/uL (0.04-0.35); Eosinophils % (A) 0.5 %; Immature Grans, Automated 0.5 %; Lymphocytes # (A) 1.14 X 10*3/uL (0.90-5.00); Monocytes # (A) 0.64 X 10*3/uL (0.20-1.00); Monocytes % (A) 2.8 %; Neutrophils # (A) 20.92 X 10*3/uL (1.80-7.70); RBC Morphology NORMAL
[2021-05-18 11:57] LABS: Erythrocyte Sedimentation Rate 114 mm/Hr (0-20)
--- NOTE | 2021-05-18 12:07 | P.CRDCN ---
History of Present Illness History of present illness: 75-year-old gentleman is admitted to hospital with a febrile illness elevated white cell count and abnormal blood cultures. He underwent an echocardiogram that showed a mildly dilated aortic root with normal LV systolic function without significant valvular heart disease. Infectious disease has requested a transesophageal echo to rule out a cardiac source for his infection. Since his admission the blood cultures have been negative. He has history of paroxysmal atrial fibrillation currently on anticoagulant and is in sinus rhythm. Patient has history of lymphoma that was diagnosed about 8 years ago and has had recent recurrence and treated with radiation therapy. My suspicion for infective endocarditis is very low in this patient who had negative blood cultures. However however I will request Dr. Panda the patient's primary luster repairer to perform a transesophageal echo as per infectious disease physician's request Constitutional: Fatigue tiredness and not feeling well Eyes: Denies blurred vision. Denies pain. Ears, nose, mouth and throat: Denies headache. Denies sore throat. Cardiovascular: Denies chest pain. Denies shortness of breath. Respiratory: Denies cough. Gastrointestinal: Denies abdominal pain. Denies diarrhea. Denies nausea. Denies vomiting. Musculoskeletal: Denies myalgias. Integumentary: Denies pruritus. Denies rash. Neurological: Denies numbness. Denies weakness. Psychiatric: Denies anxiety. Denies depression. Endocrine: Denies fatigue. Denies weight change. Genitourinary: Denies burning, hematuria, frequency of urination. Hematological: No anemia or excess bleeding. General: The patient is awake and alert, in no distress, and does not appear acutely ill. Skin: Skin is warm and dry and no rashes or lesions are noted. Eye: Pupils are equal, round and reactive to light, extra-ocular movements are intact; there is normal conjunctiva bilaterally. Ears, nose, mouth and throat: There are moist mucous membranes and no oral lesions. Neck: The neck is supple, there is no tenderness or JVD. Cardiovascular: There is a regular rate and rhythm. No murmur, rub or gallop is appreciated. Respiratory: Lungs are clear to auscultation, respirations are non-labored, breath sounds are equal. Gastrointestinal: Soft, non-distended, non-tender abdomen without masses or organomegaly noted. There is no rebound or guarding present. Bowel sounds are unremarkable. Back: There is no tenderness to palpation in the midline. There is no obvious deformity. Musculoskeletal: Normal ROM, no tenderness, There is no pedal edema. There is no calf tenderness or swelling. Extremities: No edema. Vascular: Femoral pulse is normal. Posterior tibial pulses are normal .Dorsalis pedis is palpable. Neurological: CN II-XII intact. There are no obvious motor or sensory deficits. Speech is normal. Psychiatric: Cooperative, appropriate mood & affect, normal judgment. Assessment and plan: Febrile illness rule out infective endocarditis Paroxysmal atrial fibrillation History of lymphoma Patient will undergo transesophageal echo by Dr. Panda Past Medical History Past Medical History: Atrial Fibrillation, Cancer, Osteoarthritis (OA) Additional Past Medical History / Comment(s): Mantle Lymphoma, Basal Cell Carcinoma Oct 2012 (in remission), hx Bronchitis. aortic aneurysm History of Any Multi-Drug Resistant Organisms: None Reported Past Surgical History: Hernia Repair, Joint Replacement Additional Past Surgical History / Comment(s): Removal of skin cancer, bone marrow transplant, right knee replacement Past Anesthesia/Blood Transfusion Reactions: No Reported Reaction Past Psychological History: No Psychological Hx Reported Additional Psychological History / Comment(s): Pt resides with his spouse. He has a nebulizer. He is independent. Smoking Status: Never smoker Past Alcohol Use History: None Reported Past Drug Use History: None Reported - Past Family History Brother(s) Family Medical History: Cancer Additional Family Medical History / Comment(s): . Father Family Medical History: No Reported History Additional Family Medical History / Comment(s): Father was healthy and lived to be 95 yrs old. Mother Family Medical History: Vascular Disorder Additional Family Medical History / Comment(s): Mother at the age of 74 yrs from a ruptured aortic aneurysm. Son(s) Additional Family Medical History / Comment(s): Patient has 2 sons with no major medical problems. Patient doesn't have any sisters. Medications and Allergies Home Medications Medication Instructions Recorded Confirmed Type Meloxicam 7.5 mg PO DAILY 01/12/14 05/15/21 History Gentle Iron 28 1 cap PO Q48H 03/03/19 05/15/21 History Magnesium Gluconate 100mg 100 mg PO DAILY 03/03/19 05/15/21 History Turmeric Root Extract [Turmeric] 500 mg PO Q48H 03/03/19 05/15/21 History Apixaban [Eliquis] 5 mg PO BID #60 tab 03/05/19 05/15/21 Rx Multivitamins, Thera [Multivitamin 1 tab PO Q48H 04/20/19 05/15/21 History (formulary)] Diltiazem Cd [Cardizem CD] 180 mg PO QAM 10/30/19 05/15/21 History Flecainide Acetate [Tambocor] 100 mg PO BID 12/17/19 05/15/21 History Cholecalciferol [Vitamin D3 (25 25 mcg PO DAILY 08/31/20 05/15/21 History Mcg = 1000 Iu)] Glucosam/Amador-Msm1/C/Julio/Bosw 1 tab PO BID 05/15/21 05/15/21 History [Glucosamine-Chondroitin Tablet] Allergies Allergy/AdvReac Type Severity Reaction Status Date / Time Penicillins Allergy Severe Rash/Hives Verified 05/15/21 14:13 over entire body anidulafungin AdvReac Chest Verified 05/15/21 14:14 Pain/Severe Arm pain with infusion benzonatate AdvReac Dyspnea Verified 05/15/21 14:13 [From Harper Yanez] Physical Exam Vitals: Vital Signs Temp Pulse Resp BP Pulse Ox 05/18/21 08:54 16 05/18/21 08:40 98.0 F 107 H 16 124/75 05/18/21 05:00 98.6 F 98 20 140/79 93 L 05/17/21 20:19 98.6 F 79 20 116/71 94 L 05/17/21 12:15 97.5 F L 76 24 114/70 94 L Intake and Output 05/17/21 05/18/21 05/18/21 22:59 06:59 14:59 Intake Total 1300 590 Balance 1300 590 Intake: Intake, IV Titration 1300 Amount Sodium Chloride 0.9% 1, 1000 000 ml @ 75 mls/hr IV . [id number] [facility] Rx#:[id number] Vancomycin 1,500 mg In 250 Sodium Chloride 0.9% 250 ml @ 125 mls/hr IVPB Q12H [facility] Rx#:[id number] cefTRIAXone 1 gm In 50 Sodium Chloride 0.9% 50 ml @ 100 mls/hr IVPB DAILY [facility] Rx#:[id number] Oral 590 Other: Voiding Method Toilet Toilet # Voids 3 3 Results 05/18/21 07:41 05/18/21 07:41 Cardiac Enzymes 05/17/21 05/18/21 Range/Units 20:56 07:41 AST 68 H 38 H (14-35) U/L CBC 05/18/21 Range/Units 07:41 WBC 22.99 H (4.50-10.00) X 10*3/uL RBC 4.10 L (4.40-5.60) X 10*6/uL Hgb 12.5 L (13.0-17.0) g/dL Hct 39.4 L (39.6-50.0) % Plt Count 376 (140-440) X 10*3/uL Comprehensive Metabolic Panel 05/17/21 05/18/21 Range/Units 20:56 07:41 Sodium 135 (135-145) mmol/L Potassium 3.9 (3.5-5.5) mmol/L Chloride 99 (96-109) mmol/L Carbon Dioxide 23.2 (20.0-27.5) mmol/L BUN 10.0 (9.0-27.0) mg/dL Creatinine 0.9 (0.6-1.5) mg/dL Glucose 112 H (70-110) mg/dL Calcium 8.6 L (8.7-10.3) mg/dL Unconjugated Bilirubin (0.20-1.00) mg/dL AST 68 H 38 H (14-35) U/L ALT 98 H 80 H (10-49) U/L Alkaline Phosphatase 301 H 277 H (41-126) U/L Total Protein 5.8 L 5.9 L (6.2-8.2) g/dL Albumin 3.3 L 3.3 L (3.8-4.9) g/dL Current Medications Generic Name Dose Route Start Last Admin Trade Name Freq PRN Reason Stop Dose Admin Acetaminophen 650 mg 05/15/21 17:48 05/18/21 08:19 Acetaminophen Tab 325 Mg Tab PO 650 mg Q6HR PRN Administration Mild Pain or Fever > 100.5 Apixaban 5 mg 05/15/21 21:00 05/18/21 08:19 Apixaban 5 Mg Tab PO 5 mg BID [facility] Administration Protocol Cholecalciferol 25 mcg 05/16/21 09:00 05/18/21 08:19 Cholecalciferol 25 Mcg (1000 Iu) Tablet PO 25 mcg DAILY [facility] Administration Diltiazem HCl 180 mg 05/16/21 09:00 05/18/21 08:22 Diltiazem Cd 180 Mg Cap.Er.24h PO 180 mg QAM [facility] Administration Flecainide Acetate 100 mg 05/15/21 21:00 05/18/21 08:21 Flecainide 50 Mg Tab PO 100 mg BID [facility] Administration Ceftriaxone Sodium 1 gm/ 50 mls @ 100 mls/hr 05/16/21 09:00 05/18/21 08:20 Sodium Chloride IVPB 100 mls/hr DAILY [facility] Administration Protocol Sodium Chloride 1,000 mls @ 75 mls/hr 05/15/21 18:00 05/17/21 22:56 Saline 0.9% IV Not Given .[id number] [facility] Vancomycin HCl 1,750 mg/ 500 mls @ 167 mls/hr 05/18/21 09:00 05/18/21 09:10 Sodium Chloride IVPB 167 mls/hr Q12H [facility] Administration Meloxicam 7.5 mg 05/16/21 09:00 05/18/21 08:19 Meloxicam 7.5 Mg Tab PO 7.5 mg DAILY [facility] Administration Miscellaneous Information 0 each 05/20/21 08:00 Vancomycin Trough Due 1 Each Misc MISCELLANE 05/20/21 08:01 DIRECTED ONE Multivitamins 1 each 05/15/21 18:00 05/17/21 17:27 Multivitamins, Thera 1 Each Tab PO 1 each Q48H [facility] Administration Non-Formulary Medication 1 cap 05/15/21 18:00 05/17/21 17:28 Gentle Iron 28 PO Not Given Q48H [facility] Non-Formulary Medication 1 tab 05/15/21 21:00 05/18/21 08:22 Glucosam/Amador-Msm1/C/Julio/Bosw [Glucosamine-Chondroitin Tablet] PO Not Given BID [facility] Non-Formulary Medication 100 mg 05/16/21 09:00 05/18/21 08:22 Magnesium Gluconate 100mg PO Not Given DAILY [facility] Non-Formulary Medication 500 mg 05/15/21 18:00 05/17/21 17:28 Turmeric Root Extract [Turmeric] PO Not Given Q48H [facility] Ondansetron HCl 4 mg 05/15/21 17:48 Ondansetron 4 Mg/2 Ml Vial IVP Q8HR PRN Nausea And Vomiting Pantoprazole Sodium 40 mg 05/17/21 07:30 05/18/21 08:19 Pantoprazole 40 Mg Tablet PO 40 mg [id number] [facility] Administration Intake and Output 05/17/21 05/18/21 05/18/21 22:59 06:59 14:59 Intake Total 1300 590 Balance 1300 590 Intake: Intake, IV Titration 1300 Amount Sodium Chloride 0.9% 1, 1000 000 ml @ 75 mls/hr IV . [id number] [facility] Rx#:[id number] Vancomycin 1,500 mg In 250 Sodium Chloride 0.9% 250 ml @ 125 mls/hr IVPB Q12H [facility] Rx#:[id number] cefTRIAXone 1 gm In 50 Sodium Chloride 0.9% 50 ml @ 100 mls/hr IVPB DAILY [facility] Rx#:[id number] Oral 590 Other: Voiding Method Toilet Toilet # Voids 3 3 05/18/21 07:41 05/18/21 07:41
--- NOTE | 2021-05-18 14:40 | P.PN ---
Subjective Progress Note Date: 05/18/21 Principal diagnosis: Positive blood cultures [place] to be contaminate in blood cultures Objective - Vital Signs Vital signs: Vital Signs Temp 98.0 F 05/18/21 08:40 Pulse 107 H 05/18/21 08:40 Resp 16 05/18/21 08:54 BP 124/75 05/18/21 08:40 Pulse Ox 93 L 05/18/21 05:00 Intake & Output 05/17/21 05/18/21 05/18/21 18:59 06:59 18:59 Intake Total 1300 590 Balance 1300 590 Intake: Intake, IV Titration 1300 Amount Sodium Chloride 0.9% 1, 1000 000 ml @ 75 mls/hr IV . [id number] [facility] Rx#:[id number] Vancomycin 1,500 mg In 250 Sodium Chloride 0.9% 250 ml @ 125 mls/hr IVPB Q12H [facility] Rx#:[id number] cefTRIAXone 1 gm In 50 Sodium Chloride 0.9% 50 ml @ 100 mls/hr IVPB DAILY [facility] Rx#:[id number] Oral 590 Other: Voiding Method Toilet Toilet Toilet # Voids 3 3 - Exam - Constitutional General appearance: average body habitus, cooperative, no acute distress - EENT Eyes: anicteric sclerae, EOMI ENT: hearing grossly normal, normal oropharynx - Neck Neck: no lymphadenopathy - Respiratory Respiratory: bilateral: CTA - Cardiovascular Rhythm: regular Heart sounds: normal: S1, S2 Abnormal Heart Sounds: no systolic murmur, no diastolic murmur, no rub, no S3 Gallop, no S4 Gallop, no click, no other leg Peripheral Edema: bilateral: None - Gastrointestinal General gastrointestinal: no absent bowel sounds, no decreased bowel sounds, no distended, no hepatomegaly, no hyperactive bowel sounds, normal bowel sounds, no organomegaly, no rigid, no scaphoid, soft, no splenomegaly, no tenderness, no umbilical hernia, no ventral hernia - Integumentary Integumentary: normal - Neurologic Neurologic: CNII-XII intact - Musculoskeletal Musculoskeletal: generalized weakness, strength equal bilaterally - Psychiatric Psychiatric: A&O x's 3, appropriate affect, intact judgment & insight - Labs CBC & Chem 7: 05/18/21 07:41 05/18/21 07:41 Labs: Abnormal Lab Results - Last 24 Hours (Table) 05/17/21 05/18/21 05/18/21 Range/Units 20:56 07:41 07:41 WBC 22.99 H (4.50-10.00) X 10*3/uL RBC 4.10 L (4.40-5.60) X 10*6/uL Hgb 12.5 L (13.0-17.0) g/dL Hct 39.4 L (39.6-50.0) % MCHC 31.7 L (32.0-37.0) g/dL Immature Gran # 0.12 H (0.00-0.04) X 10*3/uL Neutrophils # 20.92 H (1.80-7.70) X 10*3/uL ESR 114 H (0-20) mm/Hr BUN/Creatinine Ratio 11.11 L (12.00-20.00) Ratio Glucose 112 H (70-110) mg/dL Calcium 8.6 L (8.7-10.3) mg/dL Iron 16 L (65-175) ug/dL TIBC 200 L (228-460) ug/dL % Saturation 7.84 L (15.00-50.00) Transferrin 143.0 L (204.0-354.0) mg/dL Ferritin 2389.0 H (22.0-322.0) ng/mL Conjugated Bilirubin <0.20 L (0.20-0.40) mg/dL AST 68 H 38 H (14-35) U/L ALT 98 H 80 H (10-49) U/L Alkaline Phosphatase 301 H 277 H (41-126) U/L C-Reactive Protein 17.80 H (0.00-0.80) mg/dL Total Protein 5.8 L 5.9 L (6.2-8.2) g/dL Albumin 3.3 L 3.3 L (3.8-4.9) g/dL Albumin/Globulin Ratio 1.35 L 1.27 L (1.60-3.17) g/dL Procalcitonin (0.02-0.09) ng/mL 05/18/21 Range/Units 07:41 WBC (4.50-10.00) X 10*3/uL RBC (4.40-5.60) X 10*6/uL Hgb (13.0-17.0) g/dL Hct (39.6-50.0) % MCHC (32.0-37.0) g/dL Immature Gran # (0.00-0.04) X 10*3/uL Neutrophils # (1.80-7.70) X 10*3/uL ESR (0-20) mm/Hr BUN/Creatinine Ratio (12.00-20.00) Ratio Glucose (70-110) mg/dL Calcium (8.7-10.3) mg/dL Iron (65-175) ug/dL TIBC (228-460) ug/dL % Saturation (15.00-50.00) Transferrin (204.0-354.0) mg/dL Ferritin (22.0-322.0) ng/mL Conjugated Bilirubin (0.20-0.40) mg/dL AST (14-35) U/L ALT (10-49) U/L Alkaline Phosphatase (41-126) U/L C-Reactive Protein (0.00-0.80) mg/dL Total Protein (6.2-8.2) g/dL Albumin (3.8-4.9) g/dL Albumin/Globulin Ratio (1.60-3.17) g/dL Procalcitonin 0.16 H (0.02-0.09) ng/mL Microbiology - Last 24 Hours (Table) 05/15/21 12:16 Blood Culture - Preliminary Blood No Growth after 48 hours 05/15/21 12:00 Blood Culture - Preliminary Blood No Growth after 48 hours Assessment and Plan (1) Bacteremia Current Visit: Yes Status: Acute Priority: High Code(s): R78.81 - BACTEREMIA SNOMED Code(s): 5041186 (2) Night sweats Current Visit: Yes Status: Acute Code(s): R61 - GENERALIZED HYPERHIDROSIS SNOMED Code(s): 76026994 (3) Mantle cell lymphoma Current Visit: Yes Status: Chronic Priority: Medium Code(s): C83.10 - MANTLE CELL LYMPHOMA, UNSPECIFIED SITE SNOMED Code(s): 101578760 Plan: - Plan to follow-up with primary oncologist after discharge for imaging as outpatient for concern of progressive/recurrent disease - Cardiology referral was made by primary and has seen patient.
--- NOTE | 2021-05-18 14:43 | P.PN ---
Subjective Progress Note Date: 05/18/21 The patient is a 75-year-old male with a PMH of lymphoma (initially diagnosed 8 years ago, subsequent remission with relapse 8 months ago under left eye, status post radiation with indeterminate follow-up PET scan), A. fib on Eliquis, asthma, and BPH who presents to the emergency room with complaints of night sweats, fatigue, poor appetite, and chills. Patient reports that symptoms started roughly 10 days ago and have gradually progressed. He reports significant amounts of night sweats which soak his entire bed. He denied any documented fevers however. Denied experiencing abdominal pain, diarrhea, cough, headaches, urinary complaints, focal weakness, nausea, vomiting, or shortness of breath. The patients PCP ordered blood culture this past Saturday which resulted positive for gram-positive cocci, following which he was sent to the emergency room. Patient's blood culture from outpatient are finalized and have grown Micrococcus species which is likely a contaminant. Repeat blood cultures done on admission are negative to date. Patient's CT abdomen and pelvis is unremarkable. Echocardiogram showed aortic dilation. ID recommendations VIC. Patient scheduled for VIC on 05/19/2021 Today patient stated that for the past 2 days he has not had fevers or night sweats. He denies any acute complaints. Objective - Vital Signs Vital signs: Vital Signs Temp 97.9 F 05/18/21 12:43 Pulse 70 05/18/21 12:43 Resp 16 05/18/21 12:43 BP 123/70 05/18/21 12:43 Pulse Ox 97 05/18/21 12:43 Intake & Output 05/17/21 05/18/21 05/18/21 18:59 06:59 18:59 Intake Total 1300 590 Balance 1300 590 Intake: Intake, IV Titration 1300 Amount Sodium Chloride 0.9% 1, 1000 000 ml @ 75 mls/hr IV . [id number] [facility] Rx#:[id number] Vancomycin 1,500 mg In 250 Sodium Chloride 0.9% 250 ml @ 125 mls/hr IVPB Q12H [facility] Rx#:[id number] cefTRIAXone 1 gm In 50 Sodium Chloride 0.9% 50 ml @ 100 mls/hr IVPB DAILY [facility] Rx#:[id number] Oral 590 Other: Voiding Method Toilet Toilet Toilet # Voids 3 3 - Labs CBC & Chem 7: 05/18/21 07:41 05/18/21 07:41 Labs: Abnormal Lab Results - Last 24 Hours (Table) 05/17/21 05/18/21 05/18/21 Range/Units 20:56 07:41 07:41 WBC 22.99 H (4.50-10.00) X 10*3/uL RBC 4.10 L (4.40-5.60) X 10*6/uL Hgb 12.5 L (13.0-17.0) g/dL Hct 39.4 L (39.6-50.0) % MCHC 31.7 L (32.0-37.0) g/dL Immature Gran # 0.12 H (0.00-0.04) X 10*3/uL Neutrophils # 20.92 H (1.80-7.70) X 10*3/uL ESR 114 H (0-20) mm/Hr BUN/Creatinine Ratio 11.11 L (12.00-20.00) Ratio Glucose 112 H (70-110) mg/dL Calcium 8.6 L (8.7-10.3) mg/dL Iron 16 L (65-175) ug/dL TIBC 200 L (228-460) ug/dL % Saturation 7.84 L (15.00-50.00) Transferrin 143.0 L (204.0-354.0) mg/dL Ferritin 2389.0 H (22.0-322.0) ng/mL Conjugated Bilirubin <0.20 L (0.20-0.40) mg/dL AST 68 H 38 H (14-35) U/L ALT 98 H 80 H (10-49) U/L Alkaline Phosphatase 301 H 277 H (41-126) U/L C-Reactive Protein 17.80 H (0.00-0.80) mg/dL Total Protein 5.8 L 5.9 L (6.2-8.2) g/dL Albumin 3.3 L 3.3 L (3.8-4.9) g/dL Albumin/Globulin Ratio 1.35 L 1.27 L (1.60-3.17) g/dL Procalcitonin (0.02-0.09) ng/mL 05/18/21 Range/Units 07:41 WBC (4.50-10.00) X 10*3/uL RBC (4.40-5.60) X 10*6/uL Hgb (13.0-17.0) g/dL Hct (39.6-50.0) % MCHC (32.0-37.0) g/dL Immature Gran # (0.00-0.04) X 10*3/uL Neutrophils # (1.80-7.70) X 10*3/uL ESR (0-20) mm/Hr BUN/Creatinine Ratio (12.00-20.00) Ratio Glucose (70-110) mg/dL Calcium (8.7-10.3) mg/dL Iron (65-175) ug/dL TIBC (228-460) ug/dL % Saturation (15.00-50.00) Transferrin (204.0-354.0) mg/dL Ferritin (22.0-322.0) ng/mL Conjugated Bilirubin (0.20-0.40) mg/dL AST (14-35) U/L ALT (10-49) U/L Alkaline Phosphatase (41-126) U/L C-Reactive Protein (0.00-0.80) mg/dL Total Protein (6.2-8.2) g/dL Albumin (3.8-4.9) g/dL Albumin/Globulin Ratio (1.60-3.17) g/dL Procalcitonin 0.16 H (0.02-0.09) ng/mL Microbiology - Last 24 Hours (Table) 05/15/21 12:16 Blood Culture - Preliminary Blood No Growth after 48 hours 05/15/21 12:00 Blood Culture - Preliminary Blood No Growth after 48 hours Assessment and Plan Assessment: 2 out of 2 Blood cultures positive for micrococcus species -Likely a contaminant -Resume vancomycin and Rocephin -Follow up repeat blood cultures (antibiotic in the ED was given at 1338 and blood cultures were obtained at 12 PM so blood cultures were done before antibiotics were given) -> negative to date Night sweats and above -Likely due to lymphoma since blood cultures appear to be a contaminant -Rule out infection --CT abdomen and pelvis unremarkable --Chest x-ray negative for consolidation --UA negative for UTI --2-D echocardiogram showed aortic root dilation -> patient is scheduled for VIC tomorrow --CRP and pro-calcitonin elevated --Infectious disease on board -Patient has follow-up appointments at [facility] for workup regarding recurrent lymphoma Chronic conditions: A. fib, asthma, BPH -Continue with home meds DVT prophylaxis -Eliquis The patient is admitted with an anticipated greater than 2 midnight stay for evaluation of bacteremia. CODE STATUS: Full code Discussed with: Patient Anticipated discharge date: Awaiting for ID to clear patient for discharge Anticipated discharge place: Home
[2021-05-18] MEDS: SODIUM CHLORIDE 0.9% 1,000 ML IV SCH (19:52)
--- NOTE | 2021-05-18 23:12 | P.PN ---
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 On today's evaluation that is 05/18/2021, the patient remains to be afebrile, the patient had been complaining of pain on his left periorbital area, the pat ient denies chest pain or shortness of breath or cough no nausea no vomiting. no diarrhea Objective - Vital Signs Vital signs: Vital Signs Temp 98.0 F 05/18/21 08:40 Pulse 107 H 05/18/21 08:40 Resp 16 05/18/21 08:54 BP 124/75 05/18/21 08:40 Pulse Ox 93 L 05/18/21 05:00 Intake & Output 05/17/21 05/18/21 05/18/21 18:59 06:59 18:59 Intake Total 1300 590 Balance 1300 590 Intake: Intake, IV Titration 1300 Amount Sodium Chloride 0.9% 1, 1000 000 ml @ 75 mls/hr IV . [id number] [facility] Rx#:[id number] Vancomycin 1,500 mg In 250 Sodium Chloride 0.9% 250 ml @ 125 mls/hr IVPB Q12H [facility] Rx#:[id number] cefTRIAXone 1 gm In 50 Sodium Chloride 0.9% 50 ml @ 100 mls/hr IVPB DAILY [facility] Rx#:[id number] Oral 590 Other: Voiding Method Toilet Toilet # Voids 3 3 - Exam GENERAL DESCRIPTION: An elderly male lying in bed in no distress RESPIRATORY SYSTEM: Unlabored breathing , decreased breath sounds at bases HEART: S1 S2 regular rate and rhythm , ABDOMEN: Soft , no tenderness EXTREMITIES: No edema feet - Labs CBC & Chem 7: 05/18/21 07:41 05/18/21 07:41 Labs: Abnormal Lab Results - Last 24 Hours (Table) 05/17/21 05/18/21 05/18/21 Range/Units 20:56 07:41 07:41 WBC 22.99 H (4.50-10.00) X 10*3/uL RBC 4.10 L (4.40-5.60) X 10*6/uL Hgb 12.5 L (13.0-17.0) g/dL Hct 39.4 L (39.6-50.0) % MCHC 31.7 L (32.0-37.0) g/dL BUN/Creatinine Ratio 11.11 L (12.00-20.00) Ratio Glucose 112 H (70-110) mg/dL Calcium 8.6 L (8.7-10.3) mg/dL Iron 16 L (65-175) ug/dL TIBC 200 L (228-460) ug/dL % Saturation 7.84 L (15.00-50.00) Transferrin 143.0 L (204.0-354.0) mg/dL Ferritin 2389.0 H (22.0-322.0) ng/mL Conjugated Bilirubin <0.20 L (0.20-0.40) mg/dL AST 68 H 38 H (14-35) U/L ALT 98 H 80 H (10-49) U/L Alkaline Phosphatase 301 H 277 H (41-126) U/L C-Reactive Protein 17.80 H (0.00-0.80) mg/dL Total Protein 5.8 L 5.9 L (6.2-8.2) g/dL Albumin 3.3 L 3.3 L (3.8-4.9) g/dL Albumin/Globulin Ratio 1.35 L 1.27 L (1.60-3.17) g/dL Procalcitonin (0.02-0.09) ng/mL 05/18/21 Range/Units 07:41 WBC (4.50-10.00) X 10*3/uL RBC (4.40-5.60) X 10*6/uL Hgb (13.0-17.0) g/dL Hct (39.6-50.0) % MCHC (32.0-37.0) g/dL BUN/Creatinine Ratio (12.00-20.00) Ratio Glucose (70-110) mg/dL Calcium (8.7-10.3) mg/dL Iron (65-175) ug/dL TIBC (228-460) ug/dL % Saturation (15.00-50.00) Transferrin (204.0-354.0) mg/dL Ferritin (22.0-322.0) ng/mL Conjugated Bilirubin (0.20-0.40) mg/dL AST (14-35) U/L ALT (10-49) U/L Alkaline Phosphatase (41-126) U/L C-Reactive Protein (0.00-0.80) mg/dL Total Protein (6.2-8.2) g/dL Albumin (3.8-4.9) g/dL Albumin/Globulin Ratio (1.60-3.17) g/dL Procalcitonin 0.16 H (0.02-0.09) ng/mL Microbiology - Last 24 Hours (Table) 05/15/21 12:16 Blood Culture - Preliminary Blood No Growth after 48 hours 05/15/21 12:00 Blood Culture - Preliminary Blood No Growth after 48 hours Assessment and Plan (1) Bacteremia Current Visit: Yes Status: Acute Priority: High Code(s): R78.81 - BACTEREMIA SNOMED Code(s): 1041536 Plan: 1patient with a positive blood culture which has been finalized with micrococcus patient is more likely in the skin contaminant as the patient has no clinical disease to go along with so far no fever and initial work-up has been negative including a negative chest x-ray and UA patient abdominal soft on clinical examination and no evidence of any cellulitis. 2 CT of abdominal pelvis did not show any acute intra-abdominal pathology. 3blood cultures has been repeated and those are negative so far 4 -echocardiogram which shows aortic root dilatation as well as aortic valve regurgitation and may benefit from a cardiology evaluation and possible VIC, as the patient did have elevated CRP and a sed rate this has been discussed with admitting team to obtain cardiology evaluation 5-continue with the Rocephin and vancomycin at this point Time with Patient: Less than 30
[2021-05-19] MEDS: SODIUM CHLORIDE 0.9% 1,000 ML IV SCH ×2 (03:43→16:32)
[2021-05-19] MEDS: VANCOMYCIN 1,750 MG in SODIUM CHLORIDE 0.9% 500 ML 500 ML IVPB SCH (08:16)
[2021-05-19] MEDS ORDERED: fentaNYL (PF) 50 MCG/ML 2 ML AMP ONE (08:32)
[2021-05-19] MEDS: BENZOCAINE SPRAY 1 CAN TOPICAL ONE ×2 (08:56→09:16)
[2021-05-19] MEDS ORDERED: IV FLUID CONTINUATION 1,000 ML IV ONE (08:57)
[2021-05-19 09:06] LABS: Basophils # (A) 0.04 X 10*3/uL (0.00-0.10); Basophils % (A) 0.2 %; Eosinophils # (A) 0.33 X 10*3/uL (0.04-0.35); Eosinophils % (A) 1.7 %; HCT 37.4 % (39.6-50.0); HGB 11.7 g/dL (13.0-17.0); Immature Grans, Automated 0.5 %; Lymphocytes # (A) 1.99 X 10*3/uL (0.90-5.00); Lymphocytes % (A) 10.3 %; MCH 30.4 pg (27.0-32.0); MCHC 31.3 g/dL (32.0-37.0); MCV 97.1 fL (80.0-97.0); Mean Platelet Volume 10.9 fL (9.5-12.2); Monocytes # (A) 0.38 X 10*3/uL (0.20-1.00); NRBC Per 100 WBC 0 /100 WBCS (0.0-0.0); Neutrophils # (A) 16.42 X 10*3/uL (1.80-7.70); Neutrophils % (A) 85.3 %; Platelet Count 371 X 10*3/uL (140-440); RBC 3.85 X 10*6/uL (4.40-5.60); RDW 13.4 % (11.5-14.5); WBC 19.26 X 10*3/uL (4.50-10.00)
[2021-05-19] MEDS ORDERED: fentaNYL (PF) 50 MCG/ML 2 ML AMP IVP ONE (09:17)
[2021-05-19] MEDS ORDERED: MIDAZOLAM 2 MG/2 ML VIAL IVP ONE (09:17)
[2021-05-19 09:23] LABS: African American GFR (CKD) 102.7 (60.0-200.0); Anion Gap 10.5 mmol/L (10.00-18.00); BUN/Creat Ratio 13.63 Ratio (12.00-20.00); Blood Urea Nitrogen 10.9 mg/dL (9.0-27.0); Calcium 8.5 mg/dL (8.7-10.3); Carbon Dioxide 26.5 mmol/L (20.0-27.5); Non-African American GFR(CKD) 88.6 (60.0-200.0); Potassium 3.8 mmol/L (3.5-5.5)
--- NOTE | 2021-05-19 09:39 | P.PCN ---
Date of Procedure: 05/19/21 Description of Procedure: Indication: Rule out intracardiac source for bacteremia Procedure Description: After explaining the procedure to the patient, it's risk and complications, blood pressure, heart rate and O2 saturation were monitored. The throat was sprayed with Cetacaine. Patient received 2 mg intravenous Versed, 50 mcg intravenous fentanyl. The probe was introduced into the esophagus without difficulty. Images were obtained. Following that, the probe was removed. There was no immediate complication. Findings: Left atrial size is mildly dilated, left atrial appendage is normal. Left ventricle size and systolic function are normal. The aortic valve, mitral valve, tricuspid and pulmonic valve are normal. No evidence of endocarditis. Descending thoracic aorta appears to be normal. No pericardial effusion was noted. Contrast bubble study revealed no shunting across the intra-atrial septum with Valsalva maneuver. Doppler: Pulse wave and color Doppler were obtained and revealed mild mitral and tricuspid regurgitation, mild aortic regurgitation was noted no shunting across the intra-atrial septum. Conclusion: 1. Mildly dilated left atrium 2. Normal size and systolic function 3. No evidence of endocarditis or vegetations 4. Mild mitral, aortic and tricuspid regurgitation 5. No shunting across the intra-atrial septum.
[2021-05-19] MEDS ORDERED: SODIUM CHLORIDE 0.9% 1,000 ML IV SCH (09:45)
[2021-05-19] MEDS: MELOXICAM 7.5 MG TAB PO SCH (10:45)
[2021-05-19] MEDS: DILTIAZEM CD 180 MG CAP.ER.24H PO SCH (10:45)
[2021-05-19] MEDS: PANTOPRAZOLE 40 MG TABLET PO SCH (10:45)
[2021-05-19] MEDS: FLECAINIDE 50 MG TAB PO SCH (10:47)
[2021-05-19] MEDS: APIXABAN 5 MG TAB PO SCH (10:48)
[2021-05-19] MEDS: CHOLECALCIFEROL 25 MCG (1000 IU) TABLET PO SCH (10:48)
[2021-05-19] MEDS: MAGNESIUM GLUCONATE PO SCH (10:50)
[2021-05-19] MEDS: NON FORMULARY DRUG (Glucosam/Chon-Msm1/C/Mang/Bosw [Glucosamine-Chondroitin Tablet] 1 EACH PO SCH (10:50)
[2021-05-19 16:01] VITALS: BP 121/67; PULSE 83; RESP 18; TEMP 97.5
--- NOTE | 2021-05-19 16:16 | P.DS ---
Providers Date of admission: 05/15/21 17:51 Attending physician: Zack Watt MD Consults: 05/15/21 17:49 Consult Physician Routine Consulting Provider: Chris Gan Consult Reason/Comments: lymphoma Do you want consulting provider notified?: Yes 05/15/21 19:47 Consult Physician Urgent Consulting Provider: Brandy Coon Consult Reason/Comments: [facility]PC bactaremia Do you want consulting provider notified?: Yes 05/18/21 09:07 Consult Physician Urgent Consulting Provider: Tony Monaco Consult Reason/Comments: ID recommending VIC for aortic dilation on echo Do you want consulting provider notified?: Yes Primary care physician: [facility] Course: Discharge Diagnosis: 2 out of 2 Blood cultures positive for micrococcus species likely a contaminant Night sweats likely due to lymphoma Atrial fibrillation Asthma BPH Hospital Course: The patient is a 75-year-old male with a PMH of lymphoma (initially diagnosed 8 years ago, subsequent remission with relapse 8 months ago under left eye, status post radiation with indeterminate follow-up PET scan), A. fib on Eliquis, asthma, and BPH who presents to the emergency room with complaints of night sweats, fatigue, poor appetite, and chills. Patient reports that symptoms started roughly 10 days ago and have gradually progressed. He reports significant amounts of night sweats which soak his entire bed. He denied any documented fevers however. Denied experiencing abdominal pain, diarrhea, cough, headaches, urinary complaints, focal weakness, nausea, vomiting, or shortness of breath. The patients PCP ordered blood culture this past Saturday which resulted positive for gram-positive cocci, following which he was sent to the emergency room. Patient's chest x-ray was negative for pneumonia. Patient's UA was negative for UTI. Patient's blood culture from outpatient are finalized and have grown Micrococcus species which is likely a contaminant. Repeat blood cultures done on admission are negative to date. Patient's CT abdomen and pelvis is unremarkable. Patient also had a VIC that was negative for endocarditis. Patient had extensive workup for infection that was all negative. At the time of discharge I discussed with infectious disease who said that patient can be discharged on no antibiotics. Patient likely has recurrent lymphoma. Patient has a follow-up appointment with his doctors at [facility] to evaluate for lymphoma. Patient seen and examined at bedside.[] Vital signs reviewed and stable. General: [non toxic], [no distress], [appears at stated age] Derm: [warm], [dry] Head: [atraumatic], [normocephalic], [symmetric] Eyes: [EOMI], [no lid lag], [anicteric sclera] Mouth: [no lip lesion], [mucus membranes moist] Cardiovascular: [S1S2 reg], [no murmur], [positive posterior tibial pulse bilateral], Lungs: [CTA bilateral], [no rhonchi, no rales] , [no accessory muscle use] Abdominal: [soft], [ nontender to palpation], [no guarding], [no appreciable organomegaly] Ext: [no gross muscle atrophy], [no edema], [no contractures] Neuro: [ CN II-XI grossly intact], [no focal neuro deficits] Psych: [Alert], [oriented], [appropriate affect] A total of [33] minutes of time were spent preparing this complex discharge summary . Patient Condition at Discharge: Fair Plan - Discharge Summary New Discharge Prescriptions: Continue Meloxicam 7.5 mg PO DAILY Gentle Iron 28 1 cap PO Q48H Magnesium Gluconate 100mg 100 mg PO DAILY Turmeric Root Extract [Turmeric] 500 mg PO Q48H Apixaban [Eliquis] 5 mg PO BID #60 tab Multivitamins, Thera [Multivitamin (formulary)] 1 tab PO Q48H Diltiazem Cd [Cardizem CD] 180 mg PO QAM Flecainide Acetate [Tambocor] 100 mg PO BID Cholecalciferol [Vitamin D3 (25 Mcg = 1000 Iu)] 25 mcg PO DAILY Glucosam/Amador-Msm1/C/Julio/Bosw [Glucosamine-Chondroitin Tablet] 1 tab PO BID Discharge Medication List Meloxicam 7.5 mg PO DAILY 01/12/14 [History] Gentle Iron 28 1 cap PO Q48H 03/03/19 [History] Magnesium Gluconate 100mg 100 mg PO DAILY 03/03/19 [History] Turmeric Root Extract [Turmeric] 500 mg PO Q48H 03/03/19 [History] Apixaban [Eliquis] 5 mg PO BID #60 tab 03/05/19 [Rx] Multivitamins, Thera [Multivitamin (formulary)] 1 tab PO Q48H 04/20/19 [History] Diltiazem Cd [Cardizem CD] 180 mg PO QAM 10/30/19 [History] Flecainide Acetate [Tambocor] 100 mg PO BID 12/17/19 [History] Cholecalciferol [Vitamin D3 (25 Mcg = 1000 Iu)] 25 mcg PO DAILY 08/31/20 [Histo ry] Glucosam/Amador-Msm1/C/Julio/Bosw [Glucosamine-Chondroitin Tablet] 1 tab PO BID 05/15/21 [History] Follow up Appointment(s)/Referral(s): Chris Gan MD [STAFF PHYSICIAN] - 05/30/21 4:15 pm
--- NOTE | 2021-05-19 19:38 | P.PN ---
Subjective Progress Note Date: 05/19/21 Principal diagnosis: Positive blood cultures Patient seen, at bedside. PLan is to follow-up with [facility] for MRI brain and repeat PET to assess for recurrent lymphoma. Objective - Vital Signs Vital signs: Vital Signs Temp 97.5 F L 05/19/21 15:58 Pulse 83 05/19/21 15:58 Resp 18 05/19/21 15:58 BP 121/67 05/19/21 15:58 Pulse Ox 95 05/19/21 15:58 Intake & Output 05/19/21 05/19/21 05/20/21 06:59 18:59 06:59 Intake Total 2019 50 Balance 2019 50 Intake: IV 50 Intake, IV Titration 1400 Amount Sodium Chloride 0.9% 1, 900 000 ml @ 75 mls/hr IV . [id number] [facility] Rx#:[id number] Vancomycin 1,750 mg In 500 Sodium Chloride 0.9% 500 ml 500 ml @ 167 mls/hr IVPB Q12H [facility] Rx#: [id number] Oral 620 Other: Voiding Method Toilet Toilet # Voids 2 1 # Bowel Movements 1 - Exam - Constitutional General appearance: average body habitus, cooperative, no acute distress - EENT Eyes: anicteric sclerae, EOMI ENT: hearing grossly normal, normal oropharynx - Neck Neck: no lymphadenopathy - Respiratory Respiratory: bilateral: CTA - Cardiovascular Rhythm: regular Heart sounds: normal: S1, S2 Abnormal Heart Sounds: no systolic murmur, no diastolic murmur, no rub, no S3 Gallop, no S4 Gallop, no click, no other leg Peripheral Edema: bilateral: None - Gastrointestinal General gastrointestinal: no absent bowel sounds, no decreased bowel sounds, no distended, no hepatomegaly, no hyperactive bowel sounds, normal bowel sounds, no organomegaly, no rigid, no scaphoid, soft, no splenomegaly, no tenderness, no umbilical hernia, no ventral hernia - Integumentary Integumentary: normal - Neurologic Neurologic: CNII-XII intact - Musculoskeletal Musculoskeletal: generalized weakness, strength equal bilaterally - Psychiatric Psychiatric: A&O x's 3, appropriate affect, intact judgment & insight - Labs CBC & Chem 7: 05/19/21 05:57 05/19/21 05:57 Labs: Abnormal Lab Results - Last 24 Hours (Table) 05/19/21 05/19/21 Range/Units 05:57 05:57 WBC 19.26 H (4.50-10.00) X 10*3/uL RBC 3.85 L (4.40-5.60) X 10*6/uL Hgb 11.7 L (13.0-17.0) g/dL Hct 37.4 L (39.6-50.0) % MCV 97.1 H (80.0-97.0) fL MCHC 31.3 L (32.0-37.0) g/dL Immature Gran # 0.10 H (0.00-0.04) X 10*3/uL Neutrophils # 16.42 H (1.80-7.70) X 10*3/uL Calcium 8.5 L (8.7-10.3) mg/dL Microbiology - Last 24 Hours (Table) 05/15/21 12:00 Blood Culture - Preliminary Blood No Growth after 96 hours 05/15/21 12:16 Blood Culture - Preliminary Blood No Growth after 96 hours Assessment and Plan (1) Bacteremia Status: Acute Priority: High Code(s): R78.81 - BACTEREMIA SNOMED Code(s): 1601222 (2) Night sweats Status: Acute Code(s): R61 - GENERALIZED HYPERHIDROSIS SNOMED Code(s): 36613771 (3) Mantle cell lymphoma Status: Chronic Priority: Medium Code(s): C83.10 - MANTLE CELL LYMPHOMA, UNSPECIFIED SITE SNOMED Code(s): 706328114 Plan: - Plan to follow-up with primary oncologist after discharge for imaging as outpatient for concern of progressive/recurrent disease - [facility] for [facility]aging Lymphoma
[2021-05-20] MEDS ORDERED: VANCOMYCIN TROUGH DUE 1 EACH MISC MISCELLANE ONE (08:00)
== END 2021-05-19 17:00 | disposition home or self-care (01) | DRG 841 ==
LOC: EC 11:48 → 5NMEDONC 17:51
PROVIDERS: ADMIT Internal Medicine; ATTEND Internal Medicine
PROC: B24BZZ4 Ultrasonography of Heart with Aorta, Transesophageal (ICD-10-PCS; principal; 2021-05-19 09:00)
DX: C83.10 Mantle cell lymphoma, unspecified site (principal); Z94.84 Stem cells transplant status; I48.0 Paroxysmal atrial fibrillation; I77.810 Thoracic aortic ectasia; I71.9 Aortic aneurysm of unspecified site, without rupture; E61.1 Iron deficiency; D72.829 Elevated white blood cell count, unspecified; I44.0 Atrioventricular block, first degree; J45.909 Unspecified asthma, uncomplicated; N40.0 Benign prostatic hyperplasia without lower urinary tract symptoms; M19.90 Unspecified osteoarthritis, unspecified site; Z79.01 Long term (current) use of anticoagulants; Z79.1 Long term (current) use of non-steroidal anti-inflammatories (NSAID); Z79.899 Other long term (current) drug therapy; Z92.3 Personal history of irradiation; Z92.21 Personal history of antineoplastic chemotherapy; Z85.828 Personal history of other malignant neoplasm of skin; Z96.651 Presence of right artificial knee joint; Z87.19 Personal history of other diseases of the digestive system; Z98.890 Other specified postprocedural states; Z88.0 Allergy status to penicillin; Z88.8 Allergy status to other drugs, medicaments and biological substances; Z82.49 Family history of ischemic heart disease and other diseases of the circulatory system
CPT/HCPCS: 36415; 71046; 74177; 80048; 80053; 80076; 80202; 81001; 82150; 82728; 83540; 83550; 83605; 83690; 83735; 83880; 84100; 84145; 84443; 84484; 85025; 85610; 85652; 85730; 86140; 87040; 93005; 93306; 93312; 93320; 93325; 96361; 96365; 99285

== ENCOUNTER 2021-05-26 09:24 | Inpatient (IN) | payer MEDICARE ==
[2021-05-26] MEDS ORDERED: ACETAMINOPHEN TAB 500 MG TAB PO STA (09:57)
[2021-05-26] MEDS ORDERED: IBUPROFEN 600 MG TAB PO STA (09:57)
--- NOTE | 2021-05-26 09:59 | ED ---
General Adult HPI - General Chief complaint: Weakness Stated complaint: Fever Time Seen by Provider: 05/26/21 09:25 Source: patient, EMS, RN notes reviewed, old records reviewed Mode of arrival: EMS - History of Present Illness Initial comments: This is a 75-year-old male who presents emergency department with past medical history significant for basal cell carcinoma with recurrence of last couple of years. Patient states the last 3 weeks she's been having night sweats which been increasing and he was in the hospital and discharged week ago and was on antibiotics multiple times here but the could never find a source of infection. Patient comes in today because he is mildly confused and has a high fever 103 according to the . Patient denies any cough. Patient denies any chest pain difficulty breathing shortness of breath per patient has abdominal pain patient denies nausea vomiting diarrhea. Patient did not get the COVID vaccine. Patient denies any abdominal pain patient denies nausea vomiting or diarrhea. - Related Data Home Medications Medication Instructions Recorded Confirmed Meloxicam 7.5 mg PO DAILY 01/12/14 05/26/21 Gentle Iron 28 1 cap PO Q48H 03/03/19 05/26/21 Magnesium Gluconate 100mg 100 mg PO DAILY 03/03/19 05/26/21 Turmeric Root Extract [Turmeric] 500 mg PO Q48H 03/03/19 05/26/21 Diltiazem Cd [Cardizem CD] 180 mg PO DAILY 10/30/19 05/26/21 Flecainide Acetate [Tambocor] 100 mg PO BID 12/17/19 05/26/21 Cholecalciferol [Vitamin D3 (25 25 mcg PO DAILY 08/31/20 05/26/21 Mcg = 1000 Iu)] Glucosam/Amador-Msm1/C/Julio/Bosw 1 tab PO BID 05/15/21 05/26/21 [Glucosamine-Chondroitin Tablet] Previous Rx's Medication Instructions Recorded Apixaban [Eliquis] 5 mg PO BID #60 tab 03/05/19 Allergies Allergy/AdvReac Type Severity Reaction Status Date / Time Penicillins Allergy Severe Rash/Hives Verified 05/26/21 10:33 over entire body anidulafungin AdvReac Chest Verified 05/26/21 10:33 Pain/Severe Arm pain with infusion benzonatate AdvReac Dyspnea Verified 05/26/21 10:33 [From Harper Yanez] Review of Systems ROS Statement: Those systems with pertinent positive or pertinent negative responses have been documented in the HPI. ROS Other: All systems not noted in ROS Statement are negative. Past Medical History Past Medical History: Atrial Fibrillation, Cancer, Osteoarthritis (OA) Additional Past Medical History / Comment(s): Mantle Lymphoma, Basal Cell Carcinoma Oct 2012 (in remission), hx Bronchitis. aortic aneurysm History of Any Multi-Drug Resistant Organisms: None Reported Past Surgical History: Hernia Repair, Joint Replacement Additional Past Surgical History / Comment(s): Removal of skin cancer, bone marrow transplant, right knee replacement Past Anesthesia/Blood Transfusion Reactions: No Reported Reaction Past Psychological History: No Psychological Hx Reported Smoking Status: Never smoker Past Alcohol Use History: None Reported Past Drug Use History: None Reported - Past Family History Brother(s) Family Medical History: Cancer Additional Family Medical History / Comment(s): . Father Family Medical History: No Reported History Additional Family Medical History / Comment(s): Father was healthy and lived to be 95 yrs old. Mother Family Medical History: Vascular Disorder Additional Family Medical History / Comment(s): Mother at the age of 74 yrs from a ruptured aortic aneurysm. Son(s) Additional Family Medical History / Comment(s): Patient has 2 sons with no major medical problems. Patient doesn't have any sisters. General Exam - General Exam Comments Initial Comments: GENERAL: Patient is well-developed and well-nourished. Patient is nontoxic and well- hydrated and is in mild distress. ENT: Neck is soft and supple. No significant lymphadenopathy is noted. Oropharynx is clear. Moist mucous membranes. Neck has full range of motion without eliciting any pain. EYES: The sclera were anicteric and conjunctiva were pink and moist. Extraocular movements were intact and pupils were equal round and reactive to light. Eyelids were unremarkable. PULMONARY: Unlabored respirations. Good breath sounds bilaterally. No audible rales rhonchi or wheezing was noted. CARDIOVASCULAR: There is a regular rate and rhythm without any murmurs gallops or rubs. ABDOMEN: Soft and nontender with normal bowel sounds. SKIN: Skin is clear with no lesions or rashes and otherwise unremarkable. NEUROLOGIC: Patient is alert and oriented x3. However he seems somewhat confused he did not realize he had a fever even though his told him at home and triage registered a fever. Cranial nerves II through XII are grossly intact. Motor and sensory are also intact. Normal speech, volume and content. Symmetrical smile. Cerebellar exam grossly intact. MUSCULOSKELETAL: Normal extremities with adequate strength and full range of motion. LYMPHATICS: No significant lymphadenopathy is noted PSYCHIATRIC: Normal psychiatric evaluation. Course Vital Signs 05/26/21 05/26/21 05/26/21 09:26 10:30 11:00 Temperature 103.2 F H Pulse Rate 111 H 98 95 Respiratory 20 22 22 Rate Blood Pressure 134/68 125/66 137/63 O2 Sat by Pulse 95 94 L 95 Oximetry 05/26/21 12:01 Temperature 98.9 F Pulse Rate 86 Respiratory 20 Rate Blood Pressure 112/62 O2 Sat by Pulse 96 Oximetry Medical Decision Making - Medical Decision Making EKG shows sinus rhythm at 90 bpm IA interval is 203 QRSs 123 QT interval is 291 QTC is 347. Patient's EKG shows no ST segment elevation or depression. Chest x-ray shows no acute abnormality. I spoke with oncology and they wanted the patient admitted. I then spoke with Dr. Meza he agreed to admit the patient to the patient wrote admitting orders. - Lab Data Result diagrams: 05/26/21 10:01 05/26/21 10:01 Lab Results 05/26/21 05/26/21 05/26/21 Range/Units 10:01 10:01 10:01 WBC 32.8 H (3.8-10.6) k/uL RBC 3.68 L (4.30-5.90) m/uL Hgb 11.2 L (13.0-17.5) gm/dL Hct 35.2 L (39.0-53.0) % MCV 95.6 (80.0-100.0) fL MCH 30.6 (25.0-35.0) pg MCHC 32.0 (31.0-37.0) g/dL RDW 12.9 (11.5-15.5) % Plt Count 418 (150-450) k/uL MPV 8.7 Neutrophils % 96 % Lymphocytes % 1 % Monocytes % 2 % Eosinophils % 0 % Basophils % 0 % Neutrophils # 31.3 H (1.3-7.7) k/uL Lymphocytes # 0.5 L (1.0-4.8) k/uL Monocytes # 0.8 (0-1.0) k/uL Eosinophils # 0.0 (0-0.7) k/uL Basophils # 0.0 (0-0.2) k/uL Manual Slide Review Performed RBC Morphology Normal PT 11.1 (9.0-12.0) sec INR 1.0 (<1.2) APTT 25.8 (22.0-30.0) sec Sodium (137-145) mmol/L Potassium (3.5-5.1) mmol/L Chloride (98-107) mmol/L Carbon Dioxide (22-30) mmol/L Anion Gap mmol/L BUN (9-20) mg/dL Creatinine (0.66-1.25) mg/dL Est GFR (CKD-EPI)AfAm (>60 ml/min/1.73 sqM) Est GFR (CKD-EPI)NonAf (>60 ml/min/1.73 sqM) Glucose (74-99) mg/dL Plasma Lactic Acid Evan (0.7-2.0) mmol/L Calcium (8.4-10.2) mg/dL Total Bilirubin (0.2-1.3) mg/dL AST (17-59) U/L ALT (4-49) U/L Alkaline Phosphatase (38-126) U/L Total Protein (6.3-8.2) g/dL Albumin (3.5-5.0) g/dL Urine Color Yellow Urine Appearance Clear (Clear) Urine pH 7.5 (5.0-8.0) Ur Specific [place] 1.018 (1.001-1.035) Urine Protein Trace H (Negative) Urine Glucose (UA) Negative (Negative) Urine Ketones 1+ H (Negative) Urine Blood Negative (Negative) Urine Nitrite Negative (Negative) Urine Bilirubin Negative (Negative) Urine Urobilinogen 2.0 (<2.0) mg/dL Ur Leukocyte Esterase Negative (Negative) Influenza Type A (PCR) (Not Detectd) Influenza Type B (PCR) (Not Detectd) RSV (PCR) (Not Detectd) SARS-CoV-2 (PCR) (Not Detectd) 05/26/21 05/26/21 05/26/21 Range/Units 10:01 10:01 10:01 WBC (3.8-10.6) k/uL RBC (4.30-5.90) m/uL Hgb (13.0-17.5) gm/dL Hct (39.0-53.0) % MCV (80.0-100.0) fL MCH (25.0-35.0) pg MCHC (31.0-37.0) g/dL RDW (11.5-15.5) % Plt Count (150-450) k/uL MPV Neutrophils % % Lymphocytes % % Monocytes % % Eosinophils % % Basophils % % Neutrophils # (1.3-7.7) k/uL Lymphocytes # (1.0-4.8) k/uL Monocytes # (0-1.0) k/uL Eosinophils # (0-0.7) k/uL Basophils # (0-0.2) k/uL Manual Slide Review RBC Morphology PT (9.0-12.0) sec INR (<1.2) APTT (22.0-30.0) sec Sodium 134 L (137-145) mmol/L Potassium 3.4 L (3.5-5.1) mmol/L Chloride 102 (98-107) mmol/L Carbon Dioxide 26 (22-30) mmol/L Anion Gap 6 mmol/L BUN 18 (9-20) mg/dL Creatinine 0.81 (0.66-1.25) mg/dL Est GFR (CKD-EPI)AfAm >90 (>60 ml/min/1.73 sqM) Est GFR (CKD-EPI)NonAf 88 (>60 ml/min/1.73 sqM) Glucose 106 H (74-99) mg/dL Plasma Lactic Acid Evan 0.9 (0.7-2.0) mmol/L Calcium 8.0 L (8.4-10.2) mg/dL Total Bilirubin 1.1 (0.2-1.3) mg/dL AST 43 (17-59) U/L ALT 80 H (4-49) U/L Alkaline Phosphatase 280 H (38-126) U/L Total Protein 5.5 L (6.3-8.2) g/dL Albumin 2.5 L (3.5-5.0) g/dL Urine Color Urine Appearance (Clear) Urine pH (5.0-8.0) Ur Specific [place] (1.001-1.035) Urine Protein (Negative) Urine Glucose (UA) (Negative) Urine Ketones (Negative) Urine Blood (Negative) Urine Nitrite (Negative) Urine Bilirubin (Negative) Urine Urobilinogen (<2.0) mg/dL Ur Leukocyte Esterase (Negative) Influenza Type A (PCR) Not Detected (Not Detectd) Influenza Type B (PCR) Not Detected (Not Detectd) RSV (PCR) Not Detected (Not Detectd) SARS-CoV-2 (PCR) Not Detected (Not Detectd) Disposition Clinical Impression: Febrile illness, acute, Altered mental status Disposition: ADMITTED IP TO THIS [facility] Referrals: Hemanth Meza MD [Primary Care Provider] - 1-2 days Time of Disposition: 13:50
[2021-05-26 10:22] LABS: Basophils % (A) 0 %; Eosinophils % (A) 0 %; HCT 35.2 % (39.0-53.0); HGB 11.2 gm/dL (13.0-17.5); Lymphocytes # (A) 0.5 k/uL (1.0-4.8); Lymphocytes % (A) 1 %; MCH 30.6 pg (25.0-35.0); MCV 95.6 fL (80.0-100.0); Mean Platelet Volume 8.7; Monocytes # (A) 0.8 k/uL (0-1.0); Monocytes % (A) 2 %; Neutrophils # (A) 31.3 k/uL (1.3-7.7); Neutrophils % (A) 96 %; Partial Thromboplastin Time 25.8 sec (22.0-30.0); Platelet Count 418 k/uL (150-450); Prothrombin Time 11.1 sec (9.0-12.0); RBC 3.68 m/uL (4.30-5.90); RDW 12.9 % (11.5-15.5)
[2021-05-26 10:24] LABS: ALT 80 U/L (4-49); AST 43 U/L (17-59); African American GFR (CKD) >90 (>60 ml/min/1.73 sqM); Albumin 2.5 g/dL (3.5-5.0); Alkaline Phosphatase 280 U/L (38-126); Anion Gap 6 mmol/L; Blood Urea Nitrogen 18 mg/dL (9-20); Carbon Dioxide 26 mmol/L (22-30); Chloride 102 mmol/L (98-107); Glucose 106 mg/dL (74-99); Non-African American GFR(CKD) 88 (>60 ml/min/1.73 sqM); Potassium 3.4 mmol/L (3.5-5.1); Sodium 134 mmol/L (137-145); Total Bilirubin 1.1 mg/dL (0.2-1.3); Total Protein 5.5 g/dL (6.3-8.2)
[2021-05-26 10:28] LABS: Appearance,Urine Clear (Clear); Bilirubin,Urine Negative (Negative); Blood,Urine Negative (Negative); Color,Urine Yellow; Glucose,Urine (UA) Negative (Negative); Ketones,Urine 1+ (Negative); Leukocyte Esterase,Urine Negative (Negative); Nitrite,Urine Negative (Negative); PH, Urine 7.5 (5.0-8.0); Protein,Urine Trace (Negative); Specific Gravity,Urine 1.018 (1.001-1.035); WBC 32.8 k/uL (3.8-10.6)
--- NOTE | 2021-05-26 10:32 | XR ---
EXAMINATION TYPE: XR chest 2V DATE OF EXAM: 05/26/2021 COMPARISON: Chest x-ray dated 05/15/2021 HISTORY: Fever TECHNIQUE: Frontal and lateral views of the chest are obtained. FINDINGS: There is no focal air space opacity, pleural effusion, or pneumothorax seen. The cardiac silhouette size is within normal limits. There are overlying cardiac leads. The osseous structures a re intact. IMPRESSION: No acute cardiopulmonary process.
[2021-05-26] MEDS: SODIUM CHLORIDE 0.9% 500 ML 500 ML IV SCH ×2 (10:33→10:34)
[2021-05-26 10:58] LABS: RBC Morphology Normal
[2021-05-26] MEDS ORDERED: SODIUM CHLORIDE 0.9% 1,000 ML IV ONE (13:51)
--- NOTE | 2021-05-26 15:21 | P.CONS ---
History of Present Illness - Reason for Consult Consult date: 05/26/21 Recurrent fevers, lymphoma Requesting physician: Raz Sharma - Chief Complaint fevers - History of Present Illness Mister Jackson is a pleasant 75-year-old male patient of Dr. 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 He has returned to the hospital after a prolonged hospital stay due to recurrent fevers and positive outpatient blood culture. During his hospitalization from 05/15/21 - 05/20/2021 he underwent repeat cultures (negative), ID evaluation, and VIC which all resulted as negative. He was therefore discharged and seen at [facility] for an MRI of Brain due to recent complaints of headaches, this did not show any clear evidence of acute issue or recurrent cancer. He now re-presents with an admission fever 103.7. Repeat cultures, Rocephin IV and admission were performed in ER. Dr. Gan and myself has seen patient in ER. He is feeling ok with the exception of headache and recurrent rigors, chills, and sweats. Oncolopgic Hx: He was seen by Dr. Poretr at [facility] on 12/08/2012 who recommended aggressive approach to his disease. Started Maxi RCHOP on 12/23/2012, he tolerated the first treatment very well,and his neutropenia resolved. He had Rituxan and High dose Marge-c on 01/13/2013 as inpatient which he tolerated very well. Cycle#2 part A started on 02/03/2013, he tolerated it well. He had cycle#2, part B on 02/27/2013 which he tolerated well. Repeat CT CAP at [facility] revealed excellent response. He started cycle # 3 part A on 03/19/2013 followed by neulasta. He had cycle#3 part B on 04/09/2013. He received neupogen followed by stem cell collection at [facility], he had stem cell transplant at [facility] on 05/04/2013. He had a repeat PET scan at [facility] on 05/24/2014 which revealed no evidence of disease. he continued to do well on follow-up. He was placed on eliquis 02/2019 for A. fib. He received Feraheme for iron deficiency, endoscopy normal. He noticed a subcutanous lesion left maxilla, saw Dr. Britt, biopsy 09/21/2020 which was positive for mantle cell lymphoma. PET 10/05/20 at [facility] revealed involvement of left maxilla area only and radiation therapy was recommended. BM Bx and asp 10/19/2020 was negative. Completed XRT to left maxilla lesion at [facility] on 11/24/2020. 01/18/2021 PET revealed very mild residual uptake in left maxilla, otherwise negative. Review of Systems All systems: negative Constitutional: Reports as per HPI Past Medical History Past Medical History: Atrial Fibrillation, Cancer, Osteoarthritis (OA) Additional Past Medical History / Comment(s): Mantle Lymphoma, Basal Cell Carcinoma Oct 2012 (in remission), hx Bronchitis. aortic aneurysm History of Any Multi-Drug Resistant Organisms: None Reported Past Surgical History: Hernia Repair, Joint Replacement Additional Past Surgical History / Comment(s): Removal of skin cancer, bone marrow transplant, right knee replacement Past Anesthesia/Blood Transfusion Reactions: No Reported Reaction Past Psychological History: No Psychological Hx Reported Smoking Status: Never smoker Past Alcohol Use History: None Reported Past Drug Use History: None Reported - Past Family History Brother(s) Family Medical History: Cancer Additional Family Medical History / Comment(s): . Father Family Medical History: No Reported History Additional Family Medical History / Comment(s): Father was healthy and lived to be 95 yrs old. Mother Family Medical History: Vascular Disorder Additional Family Medical History / Comment(s): Mother at the age of 74 yrs from a ruptured aortic aneurysm. Son(s) Additional Family Medical History / Comment(s): Patient has 2 sons with no major medical problems. Patient doesn't have any sisters. Medications and Allergies Home Medications Medication Instructions Recorded Confirmed Type Meloxicam 7.5 mg PO DAILY 01/12/14 05/26/21 History Gentle Iron 28 1 cap PO Q48H 03/03/19 05/26/21 History Magnesium Gluconate 100mg 100 mg PO DAILY 03/03/19 05/26/21 History Turmeric Root Extract [Turmeric] 500 mg PO Q48H 03/03/19 05/26/21 History Apixaban [Eliquis] 5 mg PO BID #60 tab 03/05/19 05/26/21 Rx Diltiazem Cd [Cardizem CD] 180 mg PO DAILY 10/30/19 05/26/21 History Flecainide Acetate [Tambocor] 100 mg PO BID 12/17/19 05/26/21 History Cholecalciferol [Vitamin D3 (25 25 mcg PO DAILY 08/31/20 05/26/21 History Mcg = 1000 Iu)] Glucosam/Amador-Msm1/C/Julio/Bosw 1 tab PO BID 05/15/21 05/26/21 History [Glucosamine-Chondroitin Tablet] Allergies Allergy/AdvReac Type Severity Reaction Status Date / Time Penicillins Allergy Severe Rash/Hives Verified 05/26/21 10:33 over entire body anidulafungin AdvReac Chest Verified 05/26/21 10:33 Pain/Severe Arm pain with infusion benzonatate AdvReac Dyspnea Verified 05/26/21 10:33 [From Harper Yanez] Physical Exam Vitals: Vital Signs Temp Pulse Resp BP Pulse Ox 05/26/21 12:01 98.9 F 86 20 112/62 96 05/26/21 11:00 95 22 137/63 95 05/26/21 10:30 98 22 125/66 94 L 05/26/21 09:26 103.2 F H 111 H 20 134/68 95 Intake and Output 05/26/21 05/26/21 05/26/21 06:59 14:59 22:59 Other: Weight 88.451 kg - Constitutional General appearance: average body habitus, cooperative, no acute distress - EENT Eyes: anicteric sclerae, EOMI ENT: hearing grossly normal, normal oropharynx - Neck Neck: no lymphadenopathy - Respiratory Respiratory: bilateral: CTA - Cardiovascular Rhythm: regular Heart sounds: normal: S1, S2 Abnormal Heart Sounds: no systolic murmur, no diastolic murmur, no rub, no S3 Gallop, no S4 Gallop, no click, no other leg Peripheral Edema: bilateral: None - Gastrointestinal General gastrointestinal: no absent bowel sounds, no decreased bowel sounds, no distended, no hepatomegaly, no hyperactive bowel sounds, normal bowel sounds, no organomegaly, no rigid, no scaphoid, soft, no splenomegaly, no tenderness, no umbilical hernia, no ventral hernia - Integumentary Integumentary: normal - Neurologic Neurologic: CNII-XII intact - Musculoskeletal Musculoskeletal: generalized weakness, strength equal bilaterally - Psychiatric Psychiatric: A&O x's 3, appropriate affect, intact judgment & insight Results CBC & Chem 7: 05/26/21 10:01 05/26/21 10:01 Labs: Abnormal Lab Results - Last 24 Hours (Table) 05/26/21 05/26/21 05/26/21 Range/Units 10:01 10: 10:01 WBC 32.8 H (3.8-10.6) k/uL RBC 3.68 L (4.30-5.90) m/uL Hgb 11.2 L (13.0-17.5) gm/dL Hct 35.2 L (39.0-53.0) % Neutrophils # 31.3 H (1.3-7.7) k/uL Lymphocytes # 0.5 L (1.0-4.8) k/uL Sodium 134 L (137-145) mmol/L Potassium 3.4 L (3.5-5.1) mmol/L Glucose 106 H (74-99) mg/dL Calcium 8.0 L (8.4-10.2) mg/dL ALT 80 H (4-49) U/L Alkaline Phosphatase 280 H (38-126) U/L Total Protein 5.5 L (6.3-8.2) g/dL Albumin 2.5 L (3.5-5.0) g/dL Urine Protein Trace H (Negative) Urine Ketones 1+ H (Negative) Assessment and Plan (1) Febrile illness, acute Current Visit: Yes Status: Acute Code(s): R50.9 - FEVER, UNSPECIFIED SNOMED Code(s): 190467479 Plan: Assessment and Plan (1) Bacteremia Status: Acute Priority: High Code(s): R78.81 - BACTEREMIA SNOMED Code(s): 9953495 (2) Night sweats Status: Acute Code(s): R61 - GENERALIZED HYPERHIDROSIS SNOMED Code(s): 11398450 (3) Mantle cell lymphoma Status: Chronic Priority: Medium Code(s): C83.10 - MANTLE CELL LYMPHOMA, UNSPECIFIED SITE SNOMED Code(s): 020292256 Repeat CT of Chest to confirm no evidence of recurrent cancer Will ask Dr. Cono to re-evaluate (I have discussed case with Dr. Coon and with ER Dr. Sharma in detail) Dr. Attest: I have completed the above history and physical and developed the above impression and plan, agree with dictation, dictated as a scribe
[2021-05-26] MEDS ORDERED: RX INFO: IV CONTRAST WAS GIVEN 1 EACH MISC MISCELLANE PRN (15:22)
--- NOTE | 2021-05-26 16:52 | CT ---
EXAMINATION TYPE: CT chest w con DATE OF EXAM: 05/26/2021 COMPARISON: 10/20/2020 HISTORY: HISTORY LYMPHOMA, RECURRENT FEVERS. CT DLP: 445 mGycm Automated exposure control for dose reduction was used. CONTRAST: Performed with IV Contrast, patient injected with 100 mL of Isovue M300. Images obtained from the thoracic inlet to the diaphragm with IV contrast. The lungs are clear of infiltrate. There is no pleural effusion. Heart size is normal. There is no pe ricardial effusion. There is 2 cm cyst in the left lobe of the liver. There is no pleural effusion. N o evidence of a pulmonary mass. There is no mediastinal adenopathy. There are no hilar masses. The thoracic spine is intact. No compr ession fracture. IMPRESSION: No evidence of active cardiopulmonary disease. No adverse change compared to old exam.
[2021-05-26] MEDS: NON FORMULARY DRUG (Turmeric Root Extract [Turmeric] 500 MG Capsule) PO SCH (17:11)
--- NOTE | 2021-05-26 18:12 | P.HPIM ---
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 Patient has done very well still seen oncology on regular basis. 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 Patient over a week ago was not feeling well he was seen at his oncologist office blood test was done result came back with positive culture for gram- positive cocci patient ended up coming to the hospital for positive blood culture require IV antibiotic was hospitalized for total of 5 days ended up having many testing at the time including CT of the abdomen and pelvis, echocardiogram and transesophageal echocardiogram also was seen infectious disease cardiology along with oncology final conclusion after the culture was done at the hospital at that time came back negative and his blood culture as an outpatient was blamed to be contamination. Patient was sent home with no IV or oral antibiotic at this time was doing well for the first 2 days. In the last 48 hours patient developed to have fever or chills fatigue tiredness and overall not feeling well his temperature is going as high as 103 sometimes. White blood cell had climb up quite bed from 19-32,000 patient ended up coming to the emergency department at [facility] where was seen and evaluated contacted his oncologist and decided to admit patient for sepsis or fever of unknown origin. Patient was giving 1 g of vancomycin consult oncology and infectious disease culture was done and patient was hospitalized. REVIEW OF SYSTEMS Constitutional: Positive fever chills or night sweats. Positive weight change. Positive weakness, fatigue and lethargy. With daytime sleepiness. EENT: No headache. No blurred vision or double vision, no loss of vision. No loss of Hearing, no ringing in the ears, no dizziness. No nasal drainage or congestion. No epistaxis. No sore throat. Lungs: Mild shortness of breath, no cough, no sputum production. No wheezing. Cardiovascular: No chest pain, no lower extremity edema. No palpitations. No paroxysmal nocturnal dyspnea. No orthopnea. No lightheadedness or dizziness. No syncopal episodes. Abdominal: No abdominal pain. No nausea, vomiting. No diarrhea. No constip ation. No bloody or tarry stools.. No loss of appetite. Genitourinary: No dysuria, increased frequency, urgency. No urinary retention. Musculoskeletal: No myalgias. No muscle weakness, no gait dysfunction, no frequent falls. No back pain. No neck pain. Integumentary: No wounds, no lesions. No rash or pruritus. No unusual bruising. No change in hair or nails. Neurologic: No aphasia. No facial droop. No change in mentation. No head injury. No headache. No paralysis. No paresthesia. Psychiatric: No depression. No anxiety. No mood swings. Endocrine: No abnormal blood sugars. No weight change. No excessive sweating or thirst. No cold intolerance. SOCIAL HISTORY Patient does not smoke, he is to drink on the weekend the past has not had anything to drink for long time. Does not use any marijuana does not use any CPAP or BiPAP no oxygen at home. Is and lives with his . FAMILY HISTORY His father lives to be in his late 90s, mother a 74 from rupture aneurysm, patient had 2 brothers past for multiple myeloma and CLL patient has 2 children with no major medical problem. PHYSICAL EXAMINATION Gen: This is a well-developed was having fever and chills does not look in any respiratory distress. HEENT: Head is atraumatic, normocephalic. Pupils equal, round. Sclerae is anicteric. No neck rigidity. The left cheek area had scar tissue from his mental lymphoma and radiation site. NECK: Supple. No JVD. No lymphadenopathy. No thyromegaly. LUNGS: Clear to auscultation. No wheezes or rhonchi. No intercostal retractions. HEART: Regular rate and rhythm. No murmur. ABDOMEN: Soft. Bowel sounds are present. Slight discomfort and abdominal area with no rebound or rigidity. EXTREMITIES: No pedal edema. No calf tenderness. NEUROLOGICAL: Patient is awake, alert and oriented x3. Cranial nerves 2 through 12 are grossly intact. No motor deficit no abnormal balance and gait. ASSESSMENT AND PLAN 1. Fever of unknown revision: Not a clear etiology at this point specially with recent testing were done with abdominopelvic CAT scan which showed no major fi nding except incidental cholelithiasis with bilateral inguinal hernia with no major lymph node enlargement. Patient be seen infectious disease, culture was done between urine bun blood, patient scheduled to go for CT of the chest for any finding consistent with infection lymph node enlargement or any abnormality. If this is negative patient will need to go for lumbar puncture with spinal fluid analysis to make sure there is no lymphoma of the central nervous system and furthermore if this is negative patient probably will benefit from going for bone marrow biopsy as a next step. 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 3 paroxysmal atrial fibrillation: Still seen cardiology regular basis remain on flecainide along with Emily question diltiazem with pulse rates under control. 4 thoracic aneurysm: Size is still less than 5 cm been watch carefully. 5 reactive airway/asthma: Has been doing well lately no flareup still seen p ulmonary will have Ventolin inhaler on as-needed basis. 6 BPH: With no sign of infection or prostatitis no sign of obstruction has been doing well so far. 7 incidental cholelithiasis: Patient is not having any increase abdominal pain nausea vomiting to claim his symptoms on the gallbladder at this point. 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 9 GI prophylaxis: Patient will be on pantoprazole. 10 DVT prophylaxis: Patient is on Eliquis. 11. COVID-19 testing. Was negative. Patient will be admitted to the hospital for a minimum of 2 night stay. Past Medical History Past Medical History: Atrial Fibrillation, Cancer, Osteoarthritis (OA) Additional Past Medical History / Comment(s): Mantle Lymphoma, Basal Cell Carcinoma Oct 2012 (in remission), hx Bronchitis. aortic aneurysm History of Any Multi-Drug Resistant Organisms: None Reported Past Surgical History: Hernia Repair, Joint Replacement Additional Past Surgical History / Comment(s): Removal of skin cancer, bone marrow transplant, right knee replacement Past Anesthesia/Blood Transfusion Reactions: No Reported Reaction Past Psychological History: No Psychological Hx Reported Smoking Status: Never smoker Past Alcohol Use History: None Reported Past Drug Use History: None Reported - Past Family History Brother(s) Family Medical History: Cancer Additional Family Medical History / Comment(s): . Father Family Medical History: No Reported History Additional Family Medical History / Comment(s): Father was healthy and lived to be 95 yrs old. Mother Family Medical History: Vascular Disorder Additional Family Medical History / Comment(s): Mother at the age of 74 yrs from a ruptured aortic aneurysm. Son(s) Additional Family Medical History / Comment(s): Patient has 2 sons with no major medical problems. Patient doesn't have any sisters. Medications and Allergies Home Medications Medication Instructions Recorded Confirmed Type Meloxicam 7.5 mg PO DAILY 01/12/14 05/26/21 History Gentle Iron 28 1 cap PO Q48H 03/03/19 05/26/21 History Magnesium Gluconate 100mg 100 mg PO DAILY 03/03/19 05/26/21 History Turmeric Root Extract [Turmeric] 500 mg PO Q48H 03/03/19 05/26/21 History Apixaban [Eliquis] 5 mg PO BID #60 tab 03/05/19 05/26/21 Rx Diltiazem Cd [Cardizem CD] 180 mg PO DAILY 10/30/19 05/26/21 History Flecainide Acetate [Tambocor] 100 mg PO BID 12/17/19 05/26/21 History Cholecalciferol [Vitamin D3 (25 25 mcg PO DAILY 08/31/20 05/26/21 History Mcg = 1000 Iu)] Glucosam/Amador-Msm1/C/Julio/Bosw 1 tab PO BID 05/15/21 05/26/21 History [Glucosamine-Chondroitin Tablet] Allergies Allergy/AdvReac Type Severity Reaction Status Date / Time Penicillins Allergy Severe Rash/Hives Verified 05/26/21 10:33 over entire body anidulafungin AdvReac Chest Verified 05/26/21 10:33 Pain/Severe Arm pain with infusion benzonatate AdvReac Dyspnea Verified 05/26/21 10:33 [From Harper Yanze] Physical Exam Vitals: Vital Signs Temp Pulse Resp BP Pulse Ox 05/26/21 15:00 70 22 106/65 95 05/26/21 14:00 66 18 115/64 95 05/26/21 13:00 74 20 108/64 94 L 05/26/21 12:01 98.9 F 86 20 112/62 96 05/26/21 11:00 95 22 137/63 95 05/26/21 10:30 98 22 125/66 94 L 05/26/21 09:26 103.2 F H 111 H 20 134/68 95 Intake and Output 05/26/21 05/26/21 05/26/21 06:59 14:59 22:59 Other: Weight 88.451 kg Results CBC & Chem 7: 05/26/21 10:01 05/26/21 10:01 Labs: Abnormal Lab Results - Last 24 Hours (Table) 05/26/21 05/26/21 05/26/21 Range/Units 10:01 10:01 10:01 WBC 32.8 H (3.8-10.6) k/uL RBC 3.68 L (4.30-5.90) m/uL Hgb 11.2 L (13.0-17.5) gm/dL Hct 35.2 L (39.0-53.0) % Neutrophils # 31.3 H (1.3-7.7) k/uL Lymphocytes # 0.5 L (1.0-4.8) k/uL Sodium 134 L (137-145) mmol/L Potassium 3.4 L (3.5-5.1) mmol/L Glucose 106 H (74-99) mg/dL Calcium 8.0 L (8.4-10.2) mg/dL ALT 80 H (4-49) U/L Alkaline Phosphatase 280 H (38-126) U/L Total Protein 5.5 L (6.3-8.2) g/dL Albumin 2.5 L (3.5-5.0) g/dL Urine Protein Trace H (Negative) Urine Ketones 1+ H (Negative)
[2021-05-26] MEDS: APIXABAN 5 MG TAB PO SCH (21:15)
[2021-05-26] MEDS: FLECAINIDE 50 MG TAB PO SCH (21:15)
[2021-05-26] MEDS: NON FORMULARY DRUG (Glucosam/Chon-Msm1/C/Mang/Bosw [Glucosamine-Chondroitin Tablet] 1 EACH PO SCH (21:44)
[2021-05-27] MEDS ORDERED: ACETAMINOPHEN IV (For NPO) 1,000 MG in EMPTY BAG 1 BAG IVPB PRN
[2021-05-27] MEDS: PANTOPRAZOLE 40 MG TABLET PO SCH (06:53)
[2021-05-27] MEDS: APIXABAN 5 MG TAB PO SCH (08:11)
[2021-05-27] MEDS: CHOLECALCIFEROL 25 MCG (1000 IU) TABLET PO SCH (08:28)
[2021-05-27] MEDS: FOLIC ACID 1 MG TAB PO SCH (08:28)
[2021-05-27] MEDS: FLECAINIDE 50 MG TAB PO SCH ×2 (08:28→20:22)
[2021-05-27] MEDS: DILTIAZEM CD 180 MG CAP.ER.24H PO SCH (08:28)
[2021-05-27] MEDS: FERROUS SULFATE 325 MG TAB PO SCH (08:29)
[2021-05-27] MEDS: MAGNESIUM OXIDE 400 MG TAB PO SCH (08:33)
[2021-05-27] MEDS: NON FORMULARY DRUG (Glucosam/Chon-Msm1/C/Mang/Bosw [Glucosamine-Chondroitin Tablet] 1 EACH PO SCH ×2 (08:34→19:11)
[2021-05-27 11:57] LABS: HCT 37.3 % (39.0-53.0); HGB 11.5 gm/dL (13.0-17.5); Hypochromasia Slight; MCH 30.7 pg (25.0-35.0); MCHC 30.9 g/dL (31.0-37.0); MCV 99.4 fL (80.0-100.0); Mean Platelet Volume 8.5; Platelet Count 425 k/uL (150-450); RBC 3.75 m/uL (4.30-5.90); RDW 13.8 % (11.5-15.5); WBC 36.9 k/uL (3.8-10.6)
[2021-05-27] MEDS ORDERED: LEVOFLOXACIN 500MG-D5W PMX 500 MG in DEXTROSE/WATER 1 100ML.BAG IVPB SCH (12:00)
[2021-05-27 12:05] LABS: Prothrombin Time 11.2 sec (9.0-12.0)
[2021-05-27 12:07] LABS: ALT 71 U/L (4-49); AST 41 U/L (17-59); African American GFR (CKD) >90 (>60 ml/min/1.73 sqM); Albumin 2.5 g/dL (3.5-5.0); Albumin/Globulin Ratio 0.9; Alkaline Phosphatase 278 U/L (38-126); Anion Gap 8 mmol/L; Blood Urea Nitrogen 14 mg/dL (9-20); Calcium 8.1 mg/dL (8.4-10.2); Carbon Dioxide 28 mmol/L (22-30); Chloride 102 mmol/L (98-107); Globulin 2.7 g/dL; Glucose 110 mg/dL (74-99); Lipase 18 U/L (23-300); Non-African American GFR(CKD) >90 (>60 ml/min/1.73 sqM); Potassium 3.8 mmol/L (3.5-5.1); Sodium 138 mmol/L (137-145); Total Bilirubin 0.6 mg/dL (0.2-1.3); Total Protein 5.2 g/dL (6.3-8.2)
--- NOTE | 2021-05-27 13:41 | PN ---
PROGRESS NOTE DATE OF SERVICE: 05/27/2021 CHIEF COMPLAINT: Tired. Kelvin is seen today as a followup. He feels a little tired. He has mild headaches. No nausea or vomiting. No abdominal pain. No cough. No sore throat. He had he had a fever earlier this morning of 102.7. His current medication is reviewed in his electronic medical record. On physical examination, he is alert, oriented x3. He does not appear to be in distress. His vital signs are temperature 97.8. His temperature max earlier this morning was 102.7. Pulse is 81 and regular, respirations 15, blood pressure 150/63. HEENT: Normocephalic, atraumatic. No icterus. NECK: Supple. Oral mucosa intact. CHEST: Equal expansion bilaterally. LUNGS: Clear. HEART: Heart is regular. ABDOMEN: Soft. No organomegaly or masses. Bowel sounds present. EXTREMITIES: Extremities reveal no edema. SKIN: No significant bruises, ecchymosis or petechiae. Laboratory data from today: WBC 36.9, hemoglobin 11.5, hematocrit 37.3, platelets 452. Sodium 138, potassium 3.8, chloride 102. BUN is 14, creatinine 0.7. His AST is 41, ALT is 71, alkaline phosphatase 278. IMPRESSION: Ongoing fever for the last 2 weeks associated with fever and chills. The obvious source is not identified yet. His previous blood cultures during previous admissions were negative. The only abnormality found at this point in time is his alkaline phosphatase being elevated compared to baseline, and a biliary source of infection should be ruled out. The patient also has a history of mantle cell lymphoma. There is no evidence at this point in time to suggest recurrent lymphoma. However, this also remains in the differential diagnosis. RECOMMENDATION: 1. Ultrasound of the abdomen already ordered. 2. He is currently on Levaquin, awaiting repeat culture results. 3. MRCP is already ordered as well. 4. If the above workup is not diagnostic, and in view of his headaches, we could consider lumbar puncture. However, clinically he does not seem to be acting like he is having any the leptomeningeal disease from his lymphoma or meningitis. 5. During previous hospital admission, he had extensive workup, including VIC, which all came back negative. If his fever remains recurring without any identifiable source, then a bone marrow biopsy will be obtained. The above was discussed with the patient in detail. Also I discussed his care with Dr. Meza, his primary care physician. MMLUCIO / AJITN: [id number] /
--- NOTE | 2021-05-27 14:18 | MR ---
EXAMINATION TYPE: MR MRCP DATE OF EXAM: 05/27/2021 COMPARISON: Most recent CT May 16, 2021 and older studies. Prior MRCP study September 27, 2020 HISTORY: Ascending Cholangitis Standard multiplanar, multisequence MRI departmental protocol Multiplanar, multisequence images of the abdomen were acquired without contrast. Diffusion weighted i maging was performed. Thin and thick slice MRCP imaging is attempted on MRI scanner. FINDINGS: Current exam is suboptimal as patient unable to hold still and hold breath. Liver/gallbladder/pancreas/biliary system: Tiny calcified gallstones seen better on CT versus MRI due to calcified appearance but are redemonstrated dependently near yves hepatis. No suspicious surroun ding fluid or fat stranding. Liver remains overall normal in size without significant signal dropout. There is simple benign 1.7 c m thin-walled cyst in the lateral segment left hepatic lobe image 16 series 201 redemonstrated. Moder ate generalized fat replaced atrophy of the pancreas is redemonstrated. MRCP images are nondiagnostic . T2-weighted images show no new pancreatic ductal dilatation. There is no new suspicious biliary dil atation or obvious intraluminal gallstone. Other: Lung bases remain clear. The spleen and both adrenal glands remain within normal limits. Parti ally exophytic 4.8 cm cm thin-walled cyst posteriorly in the left kidney lower pole level with additi onal smaller central parapelvic cyst in the left kidney are redemonstrated. No suspicious bowel dilat ation. No intra-abdominal ascites. No greater than 1 cm abdominal adenopathy. Multilevel spurring and disc space narrowing of the spine is redemonstrated. IMPRESSION: Suboptimal study. No new biliary dilatation noted. Tiny intraluminal gallstones within ga llbladder redemonstrated. No definitive CBD stone.
[2021-05-27] MEDS: ACETAMINOPHEN TAB 325 MG TAB PO PRN (14:36)
--- NOTE | 2021-05-27 16:35 | US ---
EXAMINATION TYPE: US abdomen limited DATE OF EXAM: 05/27/2021 COMPARISON: CT 05/16/2021 and MRCP same day CLINICAL HISTORY: 75-year-old male Abd Pain and abnormal LFT. TECHNIQUE: Multiple sonographic images of the right upper quadrant are obtained. FINDINGS: EXAM MEASUREMENTS: Liver Length: 18.4 cm Gallbladder Wall: 2.7 mm CBD: 0.4 cm Right Kidney: 1.2 x 6.1 x 5.3 cm Pancreas: Obscured by bowel gas Liver: wnl Gallbladder: echogenic shadowing foci in neck, measuring 0.9 x 0.6 x 0.7cm. Mildly hydropic. No signi ficant wall thickening at this time. No surrounding fluid. Evidence for sonographic Wu's sign: Yes CBD: wnl Right Kidney: No hydronephrosis or masses seen Mildly ectatic proximal abdominal aorta. IMPRESSION: 1. Mildly hydropic gallbladder. There appears to be a 9 mm stone at the neck of the gallbladder and s onographic Wu sign is reported positive. Unable to exclude early acute cholecystitis though there is no wall thickening or surrounding fluid at this time. If persistent concern, consider HIDA scan. 2. Bile duct normal caliber at 4 mm. 3. Mild hepatomegaly at 18.4 cm.
--- NOTE | 2021-05-27 18:27 | P.PN ---
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 Patient has done very well still seen oncology on regular basis. 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 Patient over a week ago was not feeling well he was seen at his oncologist office blood test was done result came back with positive culture for gram- positive cocci patient ended up coming to the hospital for positive blood culture require IV antibiotic was hospitalized for total of 5 days ended up having many testing at the time including CT of the abdomen and pelvis, echocardiogram and transesophageal echocardiogram also was seen infectious disease cardiology along with oncology final conclusion after the culture was done at the hospital at that time came back negative and his blood culture as an outpatient was blamed to be contamination. Patient was sent home with no IV or oral antibiotic at this time was doing well for the first 2 days. In the last 48 hours patient developed to have fever or chills fatigue tiredness and overall not feeling well his temperature is going as high as 103 sometimes. White blood cell had climb up quite bed from 19-32,000 patient ended up coming to the emergency department at [facility] where was seen and evaluated contacted his oncologist and decided to admit patient for sepsis or fever of unknown origin. Patient was giving 1 g of vancomycin consult oncology and infectious disease culture was done and patient was hospitalized. 05/27: He had an episode of fever and chills last night, his culture so far still negative for the last 24 hours. Liver function test on his blood work originally came back mildly elevated with elevated alkaline phosphatase lipase was normal at this point. Urine was negative. With the current finding patient be going for ultrasound of the liver and because of the sensitivity of the fever of unknown origin patient will be going for MRCP to exclude any possibility of ascending cholangitis in the meanwhile with no other finding patient will stop taking anticoagulation and prepare for LP on Saturday to exclude meningitis if that's negative patient furthermore should be going for bone marrow biopsy. Antibiotic management and treatment was changed patient was supposed to receive 1 g of vancomycin originally but he was giving Rocephin because of ALLERGY to penicillin and could not be on Zosyn we will add levofloxacin at this point infectious disease seen patient by then if decided to do Vanco or change the entire management per ID recommendation. REVIEW OF SYSTEMS Constitutional: Positive fever chills or night sweats. Positive weight change. Positive weakness, fatigue and lethargy. With daytime sleepiness. EENT: No headache. No blurred vision or double vision, no loss of vision. No loss of Hearing, no ringing in the ears, no dizziness. No nasal drainage or congestion. No epistaxis. No sore throat. Lungs: Mild shortness of breath, no cough, no sputum production. No wheezing. Cardiovascular: No chest pain, no lower extremity edema. No palpitations. No paroxysmal nocturnal dyspnea. No orthopnea. No lightheadedness or dizziness. No syncopal episodes. Abdominal: No abdominal pain. No nausea, vomiting. No diarrhea. No constipation. No bloody or tarry stools.. No loss of appetite. Genitourinary: No dysuria, increased frequency, urgency. No urinary retention. Musculoskeletal: No myalgias. No muscle weakness, no gait dysfunction, no frequent falls. No back pain. No neck pain. Integumentary: No wounds, no lesions. No rash or pruritus. No unusual bruising. No change in hair or nails. Neurologic: No aphasia. No facial droop. No change in mentation. No head injury. No headache. No paralysis. No paresthesia. Psychiatric: No depression. No anxiety. No mood swings. Endocrine: No abnormal blood sugars. No weight change. No excessive sweating or thirst. No cold intolerance. PHYSICAL EXAMINATION Gen: This is a well-developed was having fever and chills does not look in any respiratory distress. HEENT: Head is atraumatic, normocephalic. Pupils equal, round. Sclerae is anicteric. No neck rigidity. The left cheek area had scar tissue from his mental lymphoma and radiation site. NECK: Supple. No JVD. No lymphadenopathy. No thyromegaly. LUNGS: Clear to auscultation. No wheezes or rhonchi. No intercostal retractions. HEART: Regular rate and rhythm. No murmur. ABDOMEN: Soft. Bowel sounds are present. Slight discomfort and abdominal area with no rebound or rigidity. EXTREMITIES: No pedal edema. No calf tenderness. NEUROLOGICAL: Patient is awake, alert and oriented x3. Cranial nerves 2 through 12 are grossly intact. No motor deficit no abnormal balance and gait. ASSESSMENT AND PLAN 1. Fever of unknown revision: Not a clear etiology at this point specially with recent testing were done with abdominopelvic CAT scan which showed no major finding except incidental cholelithiasis with bilateral inguinal hernia with no major lymph node enlargement. Patient be seen infectious disease, culture was done between urine bun blood, patient scheduled to go for CT of the chest for any finding consistent with infection lymph node enlargement or any abnormality. If this is negative patient will need to go for lumbar puncture with spinal fluid analysis to make sure there is no lymphoma of the central nervous system and furthermore if this is negative patient probably will benefit from going for bone marrow biopsy as a next step. with the management was started early antibiotic will be changed currently to add Levaquin to treat this as an ascending cholangitis still the result of the MRCP on the cultures back by then patient might receive 1 g of vancomycin if infectious disease agreed. the next step if all are negative patient will need to go for LP to exclude any possibility for central nervous system involvement with his mental cell lymphoma also patient as a next step will need bone marrow biopsy. 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 3 paroxysmal atrial fibrillation: Still seen cardiology regular basis remain on flecainide along with Emily question diltiazem with pulse rates under control. 4 thoracic aneurysm: Size is still less than 5 cm been watch carefully. 5 reactive airway/asthma: Has been doing well lately no flareup still seen pulmonary will have Ventolin inhaler on as-needed basis. 6 BPH: With no sign of infection or prostatitis no sign of obstruction has been doing well so far. 7 incidental cholelithiasis: Patient is not having any increase abdominal pain nausea vomiting to claim his symptoms on the gallbladder at this point. 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 9 GI prophylaxis: Patient will be on pantoprazole. planning: Patient is going for ultrasound and MRCP, change in antibiotics, discuss results in detail with oncology and waiting for final recommendation with ID patient will be off anticoagulation prepare for lumbar puncture and spinal fluid analysis for cell analysis and cytology to exclude any possibility of mental cell lymphoma involved in the central nervous system if this negative probably the bone marrow will be the next step. Objective - Vital Signs Vital signs: Vital Signs Temp 97.8 F 05/27/21 05:35 Pulse 81 05/27/21 08:00 Resp 15 05/27/21 08:00 BP 115/63 05/27/21 05:35 Pulse Ox 96 05/27/21 05:35 Intake & Output 05/26/21 05/27/21 05/27/21 18:59 06:59 18:59 Intake Total 700 Output Total 300 300 Balance 400 -300 Weight 88.451 kg Intake: IV 600 Sodium Chloride 0.9% 1, 600 000 ml @ 75 mls/hr IV . [id number] Rx#:[id number] Intake, IV Titration 100 Amount ACETAMINOPHEN IV (For NPO 100 ) 1,000 mg In Empty Bag 1 bag @ 400 mls/hr IVPB Q6HR PRN Rx#:[id number] Output: Urine 300 300 Other: Voiding Method Toilet Toilet Urinal Urinal # Voids 1 2 2 - Labs CBC & Chem 7: 05/27/21 11:34 05/27/21 11:34
[2021-05-27] MEDS ORDERED: VANCOMYCIN IV PER PHARMACY 1 EACH MISC MISCELLANE PRN (18:34)
[2021-05-27] MEDS ORDERED: VANCOMYCIN 1,250 MG in SODIUM CHLORIDE 0.9% 250 ML IVPB SCH (18:45)
[2021-05-27] MEDS: CEFEPIME 2 GM in SODIUM CHLORIDE 0.9% 100 ML IVPB SCH (18:49)
--- NOTE | 2021-05-27 23:04 | P.CONS ---
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 in this patient with a recent recurrence to the left maxillary area for the patient has received radiation therapy patient was recently admitted at this facility with initial admission to hospital with a positive blood culture which was micrococcus species subsequent blood culture were negative and the patient did have extensive work-up including a CT of the abdominal pelvis he also have an echocardiogram followed by [facility] that was negative for any vegetation patient remains to be afebrile and cultures were negative subsequently the patient was discharged home last Saturday on Saturday the patient did have a follow-up MRI at [facility] and apparently there was no evidence of any recurrence however the mention the patient continued to have a problem with the fever on a daily basis and yesterday when he woke up he did have an episode of vomiting for which the patient was brought into the hospital patient has been complaining of fever with rigors and chills denies significant headache or URI symptoms except mild sore throat patient denies having any chest pain or shortness of the cough denies any abdominal pain no further vomiting no diarrhea and no urinary symptoms patient on presentation hospital have a fever of 103 F and the patient remains to be febrile for the last 24 hours patient is not hypoxic or need for supplemental oxygen he did have white count of 32,000 and the patient is up to 36,000 today patient did have normal kidney function ALT was mildly elevated urine has been negative influenza RSV and SARS-CoV-2 PCR was negative patient did have a chest x-ray no acute cardiopulmonary process CT of the chest no evidence of acute cardiopulmonary disease patient did have a cholangiopancreatography suboptimal study no biliary dilatation noted daily intra-abdominal gallstone within the gallbladder patient is currently being treated with the Rocephin and Levaquin infectious disease was consulted for further management of antibiotic therapy Review of Systems Positive point has been mentioned in the HPI rest of the systems are negative Past Medical History Past Medical History: Atrial Fibrillation, Cancer, Osteoarthritis (OA) Additional Past Medical History / Comment(s): Mantle Lymphoma, Basal Cell Carcinoma Oct 2012 (in remission), hx Bronchitis. aortic aneurysm History of Any Multi-Drug Resistant Organisms: None Reported Past Surgical History: Hernia Repair, Joint Replacement Additional Past Surgical History / Comment(s): Removal of skin cancer, bone marrow transplant, right knee replacement Past Anesthesia/Blood Transfusion Reactions: No Reported Reaction Past Psychological History: No Psychological Hx Reported Smoking Status: Never smoker Past Alcohol Use History: None Reported Past Drug Use History: None Reported - Past Family History Brother(s) Family Medical History: Cancer Additional Family Medical History / Comment(s): . Father Family Medical History: No Reported History Additional Family Medical History / Comment(s): Father was healthy and lived to be 95 yrs old. Mother Family Medical History: Vascular Disorder Additional Family Medical History / Comment(s): Mother at the age of 74 yrs from a ruptured aortic aneurysm. Son(s) Additional Family Medical History / Comment(s): Patient has 2 sons with no major medical problems. Patient doesn't have any sisters. Medications and Allergies Home Medications Medication Instructions Recorded Confirmed Type Meloxicam 7.5 mg PO DAILY 01/12/14 05/26/21 History Gentle Iron 28 1 cap PO Q48H 03/03/19 05/26/21 History Magnesium Gluconate 100mg 100 mg PO DAILY 03/03/19 05/26/21 History Turmeric Root Extract [Turmeric] 500 mg PO Q48H 03/03/19 05/26/21 History Apixaban [Eliquis] 5 mg PO BID #60 tab 03/05/19 05/26/21 Rx Diltiazem Cd [Cardizem CD] 180 mg PO DAILY 10/30/19 05/26/21 History Flecainide Acetate [Tambocor] 100 mg PO BID 12/17/19 05/26/21 History Cholecalciferol [Vitamin D3 (25 25 mcg PO DAILY 08/31/20 05/26/21 History Mcg = 1000 Iu)] Glucosam/Amador-Msm1/C/Julio/Bosw 1 tab PO BID 05/15/21 05/26/21 History [Glucosamine-Chondroitin Tablet] Allergies Allergy/AdvReac Type Severity Reaction Status Date / Time Penicillins Allergy Severe Rash/Hives Verified 05/26/21 10:33 over entire body anidulafungin AdvReac Chest Verified 05/26/21 10:33 Pain/Severe Arm pain with infusion benzonatate AdvReac Dyspnea Verified 05/26/21 10:33 [From Tescharly Yanez] Physical Exam Vitals: Vital Signs Temp Pulse Pulse Resp BP BP Pulse Ox 05/27/21 08:00 81 15 05/27/21 05:35 97.8 F 81 15 115/63 96 05/27/21 03:55 98.2 F 05/27/21 01:48 102.7 F H 05/27/21 01:20 102.3 F H 05/27/21 00:46 103 F H 05/27/21 00:30 101.9 F H 05/27/21 00:00 99.2 F 05/26/21 20:00 97.4 F L 66 16 101/64 97 05/26/21 15:00 70 22 106/65 95 Intake and Output 05/26/21 05/27/21 05/27/21 22:59 06:59 14:59 Intake Total 700 Output Total 300 300 Balance 400 -300 Intake: IV 600 Sodium Chloride 0.9% 1, 600 000 ml @ 75 mls/hr IV . [id number] ONE Rx#:[id number] Intake, IV Titration 100 Amount ACETAMINOPHEN IV (For NPO 100 ) 1,000 mg In Empty Bag 1 bag @ 400 mls/hr IVPB Q6HR PRN Rx#:[id number] Output: Urine 300 300 Other: Voiding Method Toilet Toilet Urinal Urinal # Voids 1 2 2 Weight 88.451 kg GENERAL DESCRIPTION: An elderly male lying in bed, no distress. No tachypnea or accessory muscle of respiration use. HEENT: Shows Pallor , no scleral icterus. Oral mucous membrane is dry. No pharyngeal erythema or thrush NECK: Trachea central, no thyromegaly. LUNGS: Unlabored breathing. Clear to auscultation anteriorly. No wheeze or crackle. HEART: S1, S2, regular rate and rhythm. No loud murmur ABDOMEN: Soft, no tenderness , guarding or rigidity, no organomegaly EXTREMITIES: No edema of feet. SKIN: No rash, no masses palpable. NEUROLOGICAL: The patient is awake, alert, oriented x3, mood and affect normal. Results CBC & Chem 7: 05/27/21 11:34 05/27/21 11:34 Labs: Abnormal Lab Results - Last 24 Hours (Table) 05/27/21 05/27/21 Range/Units 11:34 11:34 WBC 36.9 H (3.8-10.6) k/uL RBC 3.75 L (4.30-5.90) m/uL Hgb 11.5 L (13.0-17.5) gm/dL Hct 37.3 L (39.0-53.0) % MCHC 30.9 L (31.0-37.0) g/dL Glucose 110 H (74-99) mg/dL Calcium 8.1 L (8.4-10.2) mg/dL ALT 71 H (4-49) U/L Alkaline Phosphatase 278 H (38-126) U/L Total Protein 5.2 L (6.3-8.2) g/dL Albumin 2.5 L (3.5-5.0) g/dL Lipase 18 L (23-300) U/L Microbiology - Last 24 Hours (Table) 05/26/21 10:12 Blood Culture - Preliminary Blood No Growth after 24 hours 05/26/21 10:01 Blood Culture - Preliminary Blood No Growth after 24 hours Assessment and Plan (1) Febrile illness, acute Current Visit: Yes Status: Acute Code(s): R50.9 - FEVER, UNSPECIFIED SNOMED Code(s): 453716103 Plan: 1patient with fever in this patient who do have a history of mantle cell lymphoma initial diagnosis in 2012 with a recent recurrences locally and status post radiation therapy patient did have a recent admission to the hospital with a positive blood culture with micrococcus thought to be contaminant as repeat cultures were negative patient did have extensive work-up including [facility] CT abdominal pelvis is also negative patient did have a CT of the chest this admission that was negative for acute disease currently do not have any localizing signs symptoms of infection with an episode of vomiting and gallstone questionable gallbladder disease. 2-discontinue Levaquin and Rocephin 3-vancomycin pharmacy to dose target trough of 15 while watching kidney f unction and vancomycin trough closely and cefepime while the work-up is in progress 4-obtain HIDA scan We will follow on clinical condition and cultures to further adjust medication if needed Thank you for this consultation will follow this patient along with you Time with Patient: Greater than 30
[2021-05-28] MEDS: ACETAMINOPHEN TAB 325 MG TAB PO PRN ×3 (02:45→15:36)
[2021-05-28] MEDS: CEFEPIME 2 GM in SODIUM CHLORIDE 0.9% 100 ML IVPB SCH ×3 (02:45→18:09)
[2021-05-28] MEDS: VANCOMYCIN 1,500 MG in SODIUM CHLORIDE 0.9% 250 ML IVPB SCH ×2 (06:05→18:09)
[2021-05-28] MEDS: MAGNESIUM OXIDE 400 MG TAB PO SCH (08:39)
[2021-05-28] MEDS: CHOLECALCIFEROL 25 MCG (1000 IU) TABLET PO SCH (08:39)
[2021-05-28] MEDS: FLECAINIDE 50 MG TAB PO SCH ×2 (08:39→20:30)
[2021-05-28] MEDS: PANTOPRAZOLE 40 MG TABLET PO SCH (08:39)
[2021-05-28] MEDS: DILTIAZEM CD 180 MG CAP.ER.24H PO SCH (08:39)
[2021-05-28] MEDS: FOLIC ACID 1 MG TAB PO SCH (08:40)
[2021-05-28] MEDS: NON FORMULARY DRUG (Glucosam/Chon-Msm1/C/Mang/Bosw [Glucosamine-Chondroitin Tablet] 1 EACH PO SCH ×2 (08:40→20:39)
[2021-05-28 11:34] LABS: HCT 31.5 % (39.6-50.0); HGB 9.8 g/dL (13.0-17.0); MCH 30.4 pg (27.0-32.0); MCHC 31.1 g/dL (32.0-37.0); MCV 97.8 fL (80.0-97.0); Mean Platelet Volume 10.8 fL (9.5-12.2); NRBC Per 100 WBC 0 /100 WBCS (0.0-0.0); Platelet Count 363 X 10*3/uL (140-440); RBC 3.22 X 10*6/uL (4.40-5.60); RDW 14.2 % (11.5-14.5); WBC 30.04 X 10*3/uL (4.50-10.00)
[2021-05-28 11:44] LABS: African American GFR (CKD) 104.3 (60.0-200.0); Albumin 2.4 g/dL (3.8-4.9); Albumin/Globulin Ratio 1.09 (1.60-3.17); Anion Gap 11.6 mmol/L (10.00-18.00); BUN/Creat Ratio 18.96 Ratio (12.00-20.00); Blood Urea Nitrogen 14.6 mg/dL (9.0-27.0); Calcium 8.1 mg/dL (8.7-10.3); Carbon Dioxide 24.9 mmol/L (20.0-27.5); Globulin 2.2 g/dL (1.6-3.3); Potassium 3.3 mmol/L (3.5-5.5); Total Bilirubin 0.4 mg/dL (0.30-1.20); Total Protein 4.5 g/dL (6.2-8.2)
[2021-05-28] MEDS: NON FORMULARY DRUG (Turmeric Root Extract [Turmeric] 500 MG Capsule) PO SCH (15:34)
--- NOTE | 2021-05-28 15:56 | P.PN ---
Subjective Progress Note Date: 05/28/21 HISTORY OF PRESENT ILLNESS 74-year-old male one of my office patient of seen for long time who had history of mantle cell lymphoma diagnosed in 2012 involving the abdominal cavity ended up having chemotherapy and management for it for long time. Patient has done very well still seen oncology on regular basis. 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 Patient over a week ago was not feeling well he was seen at his oncologist office blood test was done result came back with positive culture for gram- positive cocci patient ended up coming to the hospital for positive blood culture require IV antibiotic was hospitalized for total of 5 days ended up having many testing at the time including CT of the abdomen and pelvis, echocardiogram and transesophageal echocardiogram also was seen infectious disease cardiology along with oncology final conclusion after the culture was done at the hospital at that time came back negative and his blood culture as an outpatient was blamed to be contamination. Patient was sent home with no IV or oral antibiotic at this time was doing well for the first 2 days. In the last 48 hours patient developed to have fever or chills fatigue tiredness and overall not feeling well his temperature is going as high as 103 sometimes. White blood cell had climb up quite bed from 19-32,000 patient ended up coming to the emergency department at [facility] where was seen and evaluated contacted his oncologist and decided to admit patient for sepsis or fever of unknown origin. Patient was giving 1 g of vancomycin consult oncology and infectious disease culture was done and patient was hospitalized. 05/27: He had an episode of fever and chills last night, his culture so far still negative for the last 24 hours. Liver function test on his blood work originally came back mildly elevated with elevated alkaline phosphatase lipase was normal at this point. Urine was negative. With the current finding patient be going for ultrasound of the liver and because of the sensitivity of the fever of unknown origin patient will be going for MRCP to exclude any possibility of ascending cholangitis in the meanwhile with no other finding patient will stop taking anticoagulation and prepare for LP on Saturday to exclude meningitis if that's negative patient furthermore should be going for bone marrow biopsy. Antibiotic management and treatment was changed patient was supposed to receive 1 g of vancomycin originally but he was giving Rocephin because of ALLERGY to penicillin and could not be on Zosyn we will add levofloxacin at this point infectious disease seen patient by then if decided to do Vanco or change the entire management per ID recommendation. 4/3: He is feeling little better continue to have fatigue and tiredness but no fever or chills. Ultrasound of the gallbladder came back with slight abnormality with stone in the neck of the gallbladder patient be going for HIDA scan tomorrow. Also talk about doing white blood cell tag scan for possible finding any focal area can be claimed to be the site of infection. The meanwhile still scheduled for HIDA scan and lumbar puncture with analysis of the spinal fluid by tomorrow. REVIEW OF SYSTEMS Constitutional: Positive fever chills or night sweats. Positive weight change. Positive weakness, fatigue and lethargy. With daytime sleepiness. EENT: No headache. No blurred vision or double vision, no loss of vision. No loss of Hearing, no ringing in the ears, no dizziness. No nasal drainage or congestion. No epistaxis. No sore throat. Lungs: Mild shortness of breath, no cough, no sputum production. No wheezing. Cardiovascular: No chest pain, no lower extremity edema. No palpitations. No paroxysmal nocturnal dyspnea. No orthopnea. No lightheadedness or dizziness. No syncopal episodes. Abdominal: No abdominal pain. No nausea, vomiting. No diarrhea. No constipation. No bloody or tarry stools.. No loss of appetite. Genitourinary: No dysuria, increased frequency, urgency. No urinary retention. Musculoskeletal: No myalgias. No muscle weakness, no gait dysfunction, no frequent falls. No back pain. No neck pain. Integumentary: No wounds, no lesions. No rash or pruritus. No unusual br uising. No change in hair or nails. Neurologic: No aphasia. No facial droop. No change in mentation. No head injury. No headache. No paralysis. No paresthesia. Psychiatric: No depression. No anxiety. No mood swings. Endocrine: No abnormal blood sugars. No weight change. No excessive sweating or thirst. No cold intolerance. PHYSICAL EXAMINATION Gen: This is a well-developed was having fever and chills does not look in any respiratory distress. HEENT: Head is atraumatic, normocephalic. Pupils equal, round. Sclerae is anicteric. No neck rigidity. The left cheek area had scar tissue from his mental lymphoma and radiation site. NECK: Supple. No JVD. No lymphadenopathy. No thyromegaly. LUNGS: Clear to auscultation. No wheezes or rhonchi. No intercostal ret ractions. HEART: Regular rate and rhythm. No murmur. ABDOMEN: Soft. Bowel sounds are present. Slight discomfort and abdominal area with no rebound or rigidity. EXTREMITIES: No pedal edema. No calf tenderness. NEUROLOGICAL: Patient is awake, alert and oriented x3. Cranial nerves 2 through 12 are grossly intact. No motor deficit no abnormal balance and gait. ASSESSMENT AND PLAN 1. Fever of unknown revision: So far all testing came back negative for this point patient had a CT of the abdomen and pelvis, CT of the chest, MRCP and ultrasound normally finding small stone in the neck of the gallbladder which patient be going for HIDA scan tomorrow initially. No positive cultures at this point patient antibiotic with switch by infectious disease to vancomycin and c efepime. the next step if all are negative patient will need to go for LP to exclude any possibility for central nervous system involvement with his mental cell lymphoma also patient as a next step will need bone marrow biopsy. 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 3 paroxysmal atrial fibrillation: Still seen cardiology regular basis remain on flecainide along with Emily question diltiazem with pulse rates under control. 4 thoracic aneurysm: Size is still less than 5 cm been watch carefully. 5 reactive airway/asthma: Has been doing well lately no flareup still seen pulmonary will have Ventolin inhaler on as-needed basis. 6 BPH: With no sign of infection or prostatitis no sign of obstruction has been doing well so far. 7 incidental cholelithiasis: Patient is not having any increase abdominal pain nausea vomiting to claim his symptoms on the gallbladder at this point. 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 9 GI prophylaxis: Patient will be on pantoprazole. CODE STATUS: Full code. Objective - Vital Signs Vital signs: Vital Signs Temp 97.8 F 05/28/21 11:56 Pulse 81 05/28/21 11:56 Resp 18 05/28/21 11:56 BP 105/64 05/28/21 11:56 Pulse Ox 96 05/28/21 11:56 Intake & Output 05/27/21 05/28/21 05/28/21 18:59 06:59 18:59 Intake Total 600 Output Total 300 250 Balance 300 -250 Intake: IV 600 Sodium Chloride 0.9% 1, 600 000 ml @ 75 mls/hr IV . [id number] ONE Rx#:[id number] Output: Urine 300 250 Other: Voiding Method Toilet Toilet Toilet Urinal Urinal Urinal # Voids 2 - Labs CBC & Chem 7: 05/28/21 07:24 05/28/21 07:24 Labs: Abnormal Lab Results - Last 24 Hours (Table) 05/27/21 05/27/21 05/28/21 Range/Units 18:49 18:49 07:24 WBC 30.04 H (4.50-10.00) X 10*3/uL RBC 3.22 L (4.40-5.60) X 10*6/uL Hgb 9.8 L (13.0-17.0) g/dL Hct 31.5 L (39.6-50.0) % MCV 97.8 H (80.0-97.0) fL MCHC 31.1 L (32.0-37.0) g/dL Potassium (3.5-5.5) mmol/L Calcium (8.7-10.3) mg/dL ALT (10-49) U/L Alkaline Phosphatase (41-126) U/L C-Reactive Protein 23.4 H (<1.0) mg/dL Total Protein (6.2-8.2) g/dL Albumin (3.8-4.9) g/dL Albumin/Globulin Ratio (1.60-3.17) g/dL Procalcitonin 3.15 H (0.02-0.09) ng/mL 05/28/21 Range/Units 07:24 WBC (4.50-10.00) X 10*3/uL RBC (4.40-5.60) X 10*6/uL Hgb (13.0-17.0) g/dL Hct (39.6-50.0) % MCV (80.0-97.0) fL MCHC (32.0-37.0) g/dL Potassium 3.3 L (3.5-5.5) mmol/L Calcium 8.1 L (8.7-10.3) mg/dL ALT 51 H (10-49) U/L Alkaline Phosphatase 230 H (41-126) U/L C-Reactive Protein (<1.0) mg/dL Total Protein 4.5 L (6.2-8.2) g/dL Albumin 2.4 L (3.8-4.9) g/dL Albumin/Globulin Ratio 1.09 L (1.60-3.17) g/dL Procalcitonin (0.02-0.09) ng/mL Microbiology - Last 24 Hours (Table) 05/26/21 10:12 Blood Culture - Preliminary Blood No Growth after 48 hours 05/26/21 10:01 Blood Culture - Preliminary Blood No Growth after 48 hours
--- NOTE | 2021-05-28 16:56 | P.PN ---
Subjective Progress Note Date: 05/28/21 Principal diagnosis: Fever Patient is a 75-year-old male with a past medical history significant for mantle cell lymphoma, in this patient recently did have a recurrence treated with local radiation, presented to hospital with a fever. On today's evaluation that is 05/28/2021, the patient overall fever pattern has improved and is currently afebrile feeling slightly better, the patient denies having any chest pain shortness of breath or cough no nausea no vomiting no abdominal pain and no diarrhea Objective - Vital Signs Vital signs: Vital Signs Temp 97.8 F 05/28/21 11:56 Pulse 81 05/28/21 11:56 Resp 18 05/28/21 11:56 BP 105/64 05/28/21 11:56 Pulse Ox 96 05/28/21 11:56 Intake & Output 05/27/21 05/28/21 05/28/21 18:59 06:59 18:59 Intake Total 600 Output Total 300 250 Balance 300 -250 Intake: IV 600 Sodium Chloride 0.9% 1, 600 000 ml @ 75 mls/hr IV . [id number] ONE Rx#:[id number] Output: Urine 300 250 Other: Voiding Method Toilet Toilet Toilet Urinal Urinal Urinal # Voids 2 - Exam GENERAL DESCRIPTION: An elderly male lying in bed in no distress RESPIRATORY SYSTEM: Unlabored breathing , decreased breath sounds at bases HEART: S1 S2 regular rate and rhythm , ABDOMEN: Soft , no tenderness EXTREMITIES: No edema feet - Labs CBC & Chem 7: 05/28/21 07:24 05/28/21 07:24 Labs: Abnormal Lab Results - Last 24 Hours (Table) 05/27/21 05/27/21 05/28/21 Range/Units 18:49 18:49 07:24 WBC 30.04 H (4.50-10.00) X 10*3/uL RBC 3.22 L (4.40-5.60) X 10*6/uL Hgb 9.8 L (13.0-17.0) g/dL Hct 31.5 L (39.6-50.0) % MCV 97.8 H (80.0-97.0) fL MCHC 31.1 L (32.0-37.0) g/dL Potassium (3.5-5.5) mmol/L Calcium (8.7-10.3) mg/dL ALT (10-49) U/L Alkaline Phosphatase (41-126) U/L C-Reactive Protein 23.4 H (<1.0) mg/dL Total Protein (6.2-8.2) g/dL Albumin (3.8-4.9) g/dL Albumin/Globulin Ratio (1.60-3.17) g/dL Procalcitonin 3.15 H (0.02-0.09) ng/mL 05/28/21 Range/Units 07:24 WBC (4.50-10.00) X 10*3/uL RBC (4.40-5.60) X 10*6/uL Hgb (13.0-17.0) g/dL Hct (39.6-50.0) % MCV (80.0-97.0) fL MCHC (32.0-37.0) g/dL Potassium 3.3 L (3.5-5.5) mmol/L Calcium 8.1 L (8.7-10.3) mg/dL ALT 51 H (10-49) U/L Alkaline Phosphatase 230 H (41-126) U/L C-Reactive Protein (<1.0) mg/dL Total Protein 4.5 L (6.2-8.2) g/dL Albumin 2.4 L (3.8-4.9) g/dL Albumin/Globulin Ratio 1.09 L (1.60-3.17) g/dL Procalcitonin (0.02-0.09) ng/mL Microbiology - Last 24 Hours (Table) 05/26/21 10:12 Blood Culture - Preliminary Blood No Growth after 48 hours 05/26/21 10:01 Blood Culture - Preliminary Blood No Growth after 48 hours Assessment and Plan (1) Febrile illness, acute Current Visit: Yes Status: Acute Code(s): R50.9 - FEVER, UNSPECIFIED SNOMED Code(s): 013033078 Plan: 1patient with fever in this patient who do have a history of mantle cell lymphoma initial diagnosis in 2012 with a recent recurrences locally and status post radiation therapy patient did have a recent admission to the hospital with a positive blood culture with micrococcus thought to be contaminant as repeat cultures were negative patient did have extensive work-up including VIC CT abdominal pelvis is also negative patient did have a CT of the chest this admission that was negative for acute disease currently do not have any localizing signs symptoms of infection with an episode of vomiting and gallstone questionable gallbladder disease. 2-patient to continue with vancomycin pharmacy to dose target trough of 15 while watching kidney function and vancomycin trough closely and cefepime while the work-up is in progress 3- HIDA scan scheduled for tomorrow at the bedside questions were answered Time with Patient: Less than 30
--- NOTE | 2021-05-28 17:46 | PN ---
PROGRESS NOTE DATE OF SERVICE: May 28, 2021. CHIEF COMPLAINT: Fever, chills. Sreedhar is seen today as a followup. He continues to have fever and chills. He continues to have some headaches off and on. No nausea or vomiting. No abdominal pain. No diarrhea. No urinary symptoms. No melena, hematochezia, hematuria or hemoptysis. CURRENT MEDICATION: Reviewed in electronic medical record. PHYSICAL EXAM: Alert and oriented x3. No acute distress. His vital signs: Temperature 97.8. His temp max was 101, Fahrenheit. His blood pressure 105/64, pulse 81, respiration 18, pulse ox 97 percent on room air. HEENT: Normocephalic, atraumatic. Neck: Supple. Chest: Equal expansion bilaterally. Lungs: Clear to auscultation. Heart is regular rate and rhythm. Abdomen: Soft. No tenderness. Extremities: No edema. Lymphatics no peripherally enlarged cervical or supraclavicular nodes. LABORATORY DATA: WBC are 30.4, mostly neutrophilia, hemoglobin is 9.8, hematocrit 31.5, platelets are 363. Sodium 139, potassium 3.3, chloride 103. His AST is 19, ALT is 51, alkaline phosphatase is 230. He recently had MRCP which I reviewed and also he had an ultrasound. I reviewed the report and also ultrasound of the abdomen as well, which revealed mildly hydropic gallbladder and there appeared to be a 9 mm stone at the neck of the gallbladder. IMPRESSION: 1. Ongoing fever. The source is not yet determined. His cultures have remained so far negative. It could be possibly related to a stone in the bile duct, especially that his liver enzymes were elevated and now they are trending down. 2. As stated previously, the patient during last admission, had extensive workup including CT scan of abdomen and pelvis and also VIC and he also had a CT scan of the chest, which were not revealing. 3. History of mantle cell lymphoma. At this time, there is no evidence suggests recurrence. RECOMMENDATION: 1. I discussed MRCP and ultrasound results with the patient's . 2. He is currently on IV antibiotic per Infectious Disease. 3. In view of his headaches, it is reasonable to consider a CSF analysis and that should be also sent for cytology and flow cytometry. 4. If he continues to have ongoing fever, then we should plan for a bone marrow biopsy. The above plan also was discussed with Dr. Meza. The above was discussed in detail with the patient and his at bedside and I have answered all their questions. MMODL / AJITN: [id number] /
[2021-05-29] MEDS: CEFEPIME 2 GM in SODIUM CHLORIDE 0.9% 100 ML IVPB SCH ×3 (02:33→20:02)
[2021-05-29] MEDS ORDERED: VANCOMYCIN TROUGH DUE 1 EACH MISC MISCELLANE ONE (05:00)
[2021-05-29] MEDS: VANCOMYCIN 1,500 MG in SODIUM CHLORIDE 0.9% 250 ML IVPB SCH ×2 (06:29→17:17)
[2021-05-29 06:52] LABS: ALT 56 U/L (4-49); AST 45 U/L (17-59); African American GFR (CKD) >90 (>60 ml/min/1.73 sqM); Albumin 2.1 g/dL (3.5-5.0); Albumin/Globulin Ratio 0.8; Alkaline Phosphatase 207 U/L (38-126); Anion Gap 5 mmol/L; Blood Urea Nitrogen 15 mg/dL (9-20); Calcium 7.7 mg/dL (8.4-10.2); Carbon Dioxide 25 mmol/L (22-30); Chloride 107 mmol/L (98-107); Globulin 2.5 g/dL; Glucose 88 mg/dL (74-99); Non-African American GFR(CKD) 89 (>60 ml/min/1.73 sqM); Potassium 3.4 mmol/L (3.5-5.1); Sodium 137 mmol/L (137-145); Total Bilirubin 0.5 mg/dL (0.2-1.3); Total Protein 4.6 g/dL (6.3-8.2)
[2021-05-29 08:47] LABS: HCT 31.2 % (39.6-50.0); HGB 9.7 g/dL (13.0-17.0); MCH 30.4 pg (27.0-32.0); MCHC 31.1 g/dL (32.0-37.0); MCV 97.8 fL (80.0-97.0); Mean Platelet Volume 10.8 fL (9.5-12.2); NRBC Per 100 WBC 0 /100 WBCS (0.0-0.0); Platelet Count 344 X 10*3/uL (140-440); RBC 3.19 X 10*6/uL (4.40-5.60); RDW 14.3 % (11.5-14.5); WBC 15.06 X 10*3/uL (4.50-10.00)
--- NOTE | 2021-05-29 09:29 | NM ---
EXAMINATION TYPE: NM hepatobiliary w CCK DATE OF EXAM: 05/29/2021 COMPARISON: NONE HISTORY: 75-year-old male with abnormal ultrasound with question of cholecystitis TECHNIQUE: After the intravenous administration of 4.3 mCi Tc 99m Mebrofenin hepatobiliary scintigrap hy is performed. Immediate images post injection. FINDINGS: There is satisfactory initial accumulation of tracer by the liver. The gallbladder is visualized wit hin 44 minutes. The small bowel activity is noted within 18 minutes. At one hour CCK was administer ed, patient was injected with 1.9 mcg of Kinevac, and gallbladder ejection fraction is calculated at 0 %, abnormal. IMPRESSION: 1. There is gallbladder filling. No scintigraphic evidence for acute cholecystitis. 2. Markedly abnormal gallbladder ejection fraction at 0%. Correlate for chronic cholecystitis or bili mona dyskinesia.
[2021-05-29] MEDS: PANTOPRAZOLE 40 MG TABLET PO SCH (10:26)
[2021-05-29] MEDS: MAGNESIUM OXIDE 400 MG TAB PO SCH (10:26)
[2021-05-29] MEDS: DILTIAZEM CD 180 MG CAP.ER.24H PO SCH (10:26)
[2021-05-29] MEDS: CHOLECALCIFEROL 25 MCG (1000 IU) TABLET PO SCH (10:26)
[2021-05-29] MEDS: FERROUS SULFATE 325 MG TAB PO SCH (10:26)
[2021-05-29] MEDS: FLECAINIDE 50 MG TAB PO SCH ×2 (10:27→20:02)
[2021-05-29] MEDS: FOLIC ACID 1 MG TAB PO SCH (10:27)
[2021-05-29] MEDS: NON FORMULARY DRUG (Glucosam/Chon-Msm1/C/Mang/Bosw [Glucosamine-Chondroitin Tablet] 1 EACH PO SCH ×2 (11:24→19:52)
--- NOTE | 2021-05-29 12:20 | P.PN ---
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 Patient has done very well still seen oncology on regular basis. 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 Patient over a week ago was not feeling well he was seen at his oncologist office blood test was done result came back with positive culture for gram- positive cocci patient ended up coming to the hospital for positive blood culture require IV antibiotic was hospitalized for total of 5 days ended up having many testing at the time including CT of the abdomen and pelvis, echocardiogram and transesophageal echocardiogram also was seen infectious disease cardiology along with oncology final conclusion after the culture was done at the hospital at that time came back negative and his blood culture as an outpatient was blamed to be contamination. Patient was sent home with no IV or oral antibiotic at this time was doing well for the first 2 days. In the last 48 hours patient developed to have fever or chills fatigue tiredness and overall not feeling well his temperature is going as high as 103 sometimes. White blood cell had climb up quite bed from [phone],[phone] patient ended up coming to the emergency department at [facility] [place] where was seen and evaluated contacted his oncologist and decided to admit patient for sepsis or fever of unknown origin. Patient was giving 1 g of vancomycin consult oncology and infectious disease culture was done and patient was hospitalized. 05/27: He had an episode of fever and chills last night, his culture so far still negative for the last 24 hours. Liver function test on his blood work originally came back mildly elevated with elevated alkaline phosphatase lipase was normal at this point. Urine was negative. With the current finding patient be going for ultrasound of the liver and because of the sensitivity of the fever of unknown origin patient will be going for MRCP to exclude any possibility of ascending cholangitis in the meanwhile with no other finding patient will stop taking anticoagulation and prepare for LP on Saturday to exclude meningitis if that's negative patient furthermore should be going for bone marrow biopsy. Antibiotic management and treatment was changed patient was supposed to receive 1 g of vancomycin originally but he was giving Rocephin because of ALLERGY to penicillin and could not be on Zosyn we will add levofloxacin at this point infectious disease seen patient by then if decided to do Vanco or change the entire management per ID recommendation. 05/28: He is feeling little better continue to have fatigue and tiredness but no fever or chills. Ultrasound of the gallbladder came back with slight abnormality with stone in the neck of the gallbladder patient be going for HIDA scan tomorrow. Also talk about doing white blood cell tag scan for possible finding any focal area can be claimed to be the site of infection. The meanwhile still scheduled for HIDA scan and lumbar puncture with analysis of the spinal fluid by tomorrow. 05/29: Patient underwent HIDA scan which revealed gallbladder filling, no evidence of acute cholecystitis. Her telemetry abnormal gallbladder ejection fraction of 0%. Correlate for chronic cholecystitis or biliary dyskinesia. Oncology has recommended considering LP and CSF analysis, cytology and flow cytometry. If patient continues to run fever, oncology is planning for bone marrow biopsy. Patient is continued on cefepime and vancomycin. Patient has been afebrile since 05/27 at 1600. REVIEW OF SYSTEMS Constitutional: Positive fever and chills and night sweats. Positive weight change. Positive weakness, fatigue and lethargy. With daytime sleepiness. EENT: No headache. No blurred vision or double vision, no loss of vision. No loss of Hearing, no ringing in the ears, no dizziness. No nasal drainage or congestion. No epistaxis. No sore throat. Lungs: Mild shortness of breath, no cough, no sputum production. No wheezing. Cardiovascular: No chest pain, no lower extremity edema. No palpitations. No paroxysmal nocturnal dyspnea. No orthopnea. No lightheadedness or dizziness. No syncopal episodes. Abdominal: No abdominal pain. No nausea, vomiting. No diarrhea. No constipation. No bloody or tarry stools.. No loss of appetite. Genitourinary: No dysuria, increased frequency, urgency. No urinary retention. Musculoskeletal: No myalgias. No muscle weakness, no gait dysfunction, no frequent falls. No back pain. No neck pain. Integumentary: No wounds, no lesions. No rash or pruritus. No unusual bruis ing. No change in hair or nails. Neurologic: No aphasia. No facial droop. No change in mentation. No head injury. No headache. No paralysis. No paresthesia. Psychiatric: No depression. No anxiety. No mood swings. Endocrine: No abnormal blood sugars. No weight change. No excessive sweating or thirst. No cold intolerance. PHYSICAL EXAMINATION Gen: This is a well-developed was having fever and chills does not look in any respiratory distress. HEENT: Head is atraumatic, normocephalic. Pupils equal, round. Sclerae is anicteric. No neck rigidity. The left cheek area had scar tissue from his mental lymphoma and radiation site. NECK: Supple. No JVD. No lymphadenopathy. No thyromegaly. LUNGS: Clear to auscultation. No wheezes or rhonchi. No intercostal retrac tions. HEART: Regular rate and rhythm. No murmur. ABDOMEN: Soft. Bowel sounds are present. Slight discomfort and abdominal area with no rebound or rigidity. EXTREMITIES: No pedal edema. No calf tenderness. NEUROLOGICAL: Patient is awake, alert and oriented x3. Cranial nerves 2 through 12 are grossly intact. No motor deficit no abnormal balance and gait. ASSESSMENT AND PLAN 1. Fever of unknown origin. HIDA scan today, possible LP and possible bone marrow biopsy per oncology. Patient is followed by infectious disease and continued on cefepime and vancomycin. 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 3 paroxysmal atrial fibrillation: Still seen cardiology regular basis remain on flecainide along with Emily question diltiazem with pulse rates under control. 4 thoracic aneurysm: Size is still less than 5 cm been watch carefully. 5 reactive airway/asthma: Has been doing well lately no flareup still seen pulmonary will have Ventolin inhaler on as-needed basis. 6 BPH: With no sign of infection or prostatitis no sign of obstruction has been doing well so far. 7 incidental cholelithiasis: Patient is not having any increase abdominal pain nausea vomiting to claim his symptoms on the gallbladder at this point. 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 9 GI prophylaxis: Patient will be on pantoprazole. CODE STATUS: Full code. DICHARGE PLAN Home without home care Impression and plan of care have been directed as dictated by the signing physician. Gianna Silver nurse practitioner acting as scribe for signing physician. Objective - Vital Signs Vital signs: Vital Signs Temp 97.5 F L 05/29/21 05:00 Pulse 71 05/29/21 05:00 Resp 18 05/29/21 05:00 BP 118/71 05/29/21 05:00 Pulse Ox 97 05/29/21 05:00 Intake & Output 05/28/21 05/29/21 05/29/21 18:59 06:59 18:59 Intake Total 250 100 Balance 250 100 Intake: Intake, IV Titration 250 100 Amount Cefepime 2 gm In Sodium 100 Chloride 0.9% 100 ml @ 25 mls/hr IVPB Q8H [facility] Rx#: [id number] Vancomycin 1,500 mg In 250 Sodium Chloride 0.9% 250 ml @ 125 mls/hr IVPB Q12H [facility] Rx#:[id number] Other: Voiding Method Toilet Toilet Urinal Urinal # Voids 2 - Labs CBC & Chem 7: 05/29/21 05:51 05/29/21 05:51 Labs: Abnormal Lab Results - Last 24 Hours (Table) 05/28/21 05/28/21 05/29/21 Range/Units 07:24 07:24 05:51 WBC 30.04 H (4.50-10.00) X 10*3/uL RBC 3.22 L (4.40-5.60) X 10*6/uL Hgb 9.8 L (13.0-17.0) g/dL Hct 31.5 L (39.6-50.0) % MCV 97.8 H (80.0-97.0) fL MCHC 31.1 L (32.0-37.0) g/dL Potassium 3.3 L 3.4 L (3.5-5.5) mmol/L Calcium 8.1 L 7.7 L (8.7-10.3) mg/dL ALT 51 H 56 H (10-49) U/L Alkaline Phosphatase 230 H 207 H (41-126) U/L Total Protein 4.5 L 4.6 L (6.2-8.2) g/dL Albumin 2.4 L 2.1 L (3.8-4.9) g/dL Albumin/Globulin Ratio 1.09 L (1.60-3.17) g/dL Microbiology - Last 24 Hours (Table) 05/27/21 18:49 Blood Culture - Preliminary Blood No Growth after 24 hours 05/26/21 10:12 Blood Culture - Preliminary Blood No Growth after 48 hours 05/26/21 10:01 Blood Culture - Preliminary Blood No Growth after 48 hours
--- NOTE | 2021-05-29 18:13 | P.PN ---
Progress Note - Text Progress Note Date: 05/29/21 The patient fever is trending down,his LFT and leukocytosis are trending down,HIDA scan reviewed There is no need for LP at this time and no need for a bone marrow biopsy either,could be considered based on his clinical course may resume yanna D/W the patient and his on the phoe and discussed with Dr Meza
--- NOTE | 2021-05-29 18:42 | P.PN ---
Subjective Progress Note Date: 05/29/21 Principal diagnosis: fever Pt feels good today, no fever, N, cough, abd pain, diarrhea. Objective - Vital Signs Vital signs: Vital Signs Temp 97.6 F 05/29/21 11:44 Pulse 71 05/29/21 11:44 Resp 16 05/29/21 11:44 BP 132/69 05/29/21 11:44 Pulse Ox 96 05/29/21 11:44 Intake & Output 05/28/21 05/29/21 05/29/21 18:59 06:59 18:59 Intake Total 250 100 Balance 250 100 Intake: Intake, IV Titration 250 100 Amount Cefepime 2 gm In Sodium 100 Chloride 0.9% 100 ml @ 25 mls/hr IVPB Q8H [facility] Rx#: [id number] Vancomycin 1,500 mg In 250 Sodium Chloride 0.9% 250 ml @ 125 mls/hr IVPB Q12H [facility] Rx#:[id number] Other: Voiding Method Toilet Toilet Toilet Urinal Urinal Urinal # Voids 2 - Constitutional General appearance: Present: average body habitus, cooperative, no acute distress - EENT Eyes: Present: anicteric sclerae, EOMI ENT: Present: hearing grossly normal - Respiratory Details: resp even and unlabored at rest - Peripheral edema leg Peripheral Edema: bilateral: Trace - Integumentary Integumentary: Present: flushed (face) - Musculoskeletal Musculoskeletal: Present: generalized weakness - Psychiatric Psychiatric: Present: A&O x's 3, appropriate affect, intact judgment & insight - Labs CBC & Chem 7: 05/29/21 05:51 05/29/21 05:51 Labs: Abnormal Lab Results - Last 24 Hours (Table) 05/29/21 05/29/21 Range/Units 05:51 05:51 WBC 15.06 H (4.50-10.00) X 10*3/uL RBC 3.19 L (4.40-5.60) X 10*6/uL Hgb 9.7 L (13.0-17.0) g/dL Hct 31.2 L (39.6-50.0) % MCV 97.8 H (80.0-97.0) fL MCHC 31.1 L (32.0-37.0) g/dL Potassium 3.4 L (3.5-5.1) mmol/L Calcium 7.7 L (8.4-10.2) mg/dL ALT 56 H (4-49) U/L Alkaline Phosphatase 207 H (38-126) U/L Total Protein 4.6 L (6.3-8.2) g/dL Albumin 2.1 L (3.5-5.0) g/dL Microbiology - Last 24 Hours (Table) 05/26/21 10:12 Blood Culture - Preliminary Blood No Growth after 72 hours 05/26/21 10:01 Blood Culture - Preliminary Blood No Growth after 72 hours 05/27/21 18:49 Blood Culture - Preliminary Blood No Growth after 24 hours - Imaging and Cardiology MRCP and HIDA scan reports reviewed Assessment and Plan (1) Febrile illness, acute Narrative/Plan: Dr. Gan and Dr. Meza discussed the case. See Dr. Gan note for details. Current Visit: Yes Status: Acute Priority: High Code(s): R50.9 - FEVER, UNSPECIFIED SNOMED Code(s): 210968864 (2) Mantle cell lymphoma Current Visit: No Status: Chronic Priority: Medium Code(s): C83.10 - MANTLE CELL LYMPHOMA, UNSPECIFIED SITE SNOMED Code(s): 591250482 Plan: Rebekah raines Attending will be Consulting Surgery in AM No bone marrow bx or LP as source of infection identified MRI head at [facility]-pending tumor board review of cyst.
--- NOTE | 2021-05-29 19:26 | P.PN ---
Subjective Progress Note Date: 05/29/21 Principal diagnosis: Fever Patient is a 75-year-old male with a past medical history significant for mantle cell lymphoma, in this patient recently did have a recurrence treated with local radiation, presented to hospital with a fever. On today's evaluation that is 05/29/2021, the patient is afebrile and the patient is feeling better, the patient denies having any chest pain shortness of breath or cough no nausea no vomiting no abdominal pain and no diarrhea Objective - Vital Signs Vital signs: Vital Signs Temp 97.5 F L 05/29/21 05:00 Pulse 71 05/29/21 05:00 Resp 18 05/29/21 05:00 BP 118/71 05/29/21 05:00 Pulse Ox 97 05/29/21 05:00 Intake & Output 05/28/21 05/29/21 05/29/21 18:59 06:59 18:59 Intake Total 250 100 Balance 250 100 Intake: Intake, IV Titration 250 100 Amount Cefepime 2 gm In Sodium 100 Chloride 0.9% 100 ml @ 25 mls/hr IVPB Q8H [facility] Rx#: [id number] Vancomycin 1,500 mg In 250 Sodium Chloride 0.9% 250 ml @ 125 mls/hr IVPB Q12H [facility] Rx#:[id number] Other: Voiding Method Toilet Toilet Urinal Urinal # Voids 2 - Exam GENERAL DESCRIPTION: An elderly male lying in bed in no distress RESPIRATORY SYSTEM: Unlabored breathing , decreased breath sounds at bases HEART: S1 S2 regular rate and rhythm , ABDOMEN: Soft , no tenderness EXTREMITIES: No edema feet - Labs CBC & Chem 7: 05/29/21 05:51 05/29/21 05:51 Labs: Abnormal Lab Results - Last 24 Hours (Table) 05/28/21 05/28/21 05/29/21 Range/Units 07:24 07:24 05:51 WBC 30.04 H (4.50-10.00) X 10*3/uL RBC 3.22 L (4.40-5.60) X 10*6/uL Hgb 9.8 L (13.0-17.0) g/dL Hct 31.5 L (39.6-50.0) % MCV 97.8 H (80.0-97.0) fL MCHC 31.1 L (32.0-37.0) g/dL Potassium 3.3 L 3.4 L (3.5-5.5) mmol/L Calcium 8.1 L 7.7 L (8.7-10.3) mg/dL ALT 51 H 56 H (10-49) U/L Alkaline Phosphatase 230 H 207 H (41-126) U/L Total Protein 4.5 L 4.6 L (6.2-8.2) g/dL Albumin 2.4 L 2.1 L (3.8-4.9) g/dL Albumin/Globulin Ratio 1.09 L (1.60-3.17) g/dL 05/29/21 Range/Units 05:51 WBC 15.06 H (4.50-10.00) X 10*3/uL RBC 3.19 L (4.40-5.60) X 10*6/uL Hgb 9.7 L (13.0-17.0) g/dL Hct 31.2 L (39.6-50.0) % MCV 97.8 H (80.0-97.0) fL MCHC 31.1 L (32.0-37.0) g/dL Potassium (3.5-5.5) mmol/L Calcium (8.7-10.3) mg/dL ALT (10-49) U/L Alkaline Phosphatase (41-126) U/L Total Protein (6.2-8.2) g/dL Albumin (3.8-4.9) g/dL Albumin/Globulin Ratio (1.60-3.17) g/dL Microbiology - Last 24 Hours (Table) 05/27/21 18:49 Blood Culture - Preliminary Blood No Growth after 24 hours 05/26/21 10:12 Blood Culture - Preliminary Blood No Growth after 48 hours 05/26/21 10:01 Blood Culture - Preliminary Blood No Growth after 48 hours Assessment and Plan (1) Febrile illness, acute Current Visit: Yes Status: Acute Priority: High Code(s): R50.9 - FEVER, UNSPECIFIED SNOMED Code(s): 786272712 Plan: 1patient with fever in this patient who do have a history of mantle cell lymphoma initial diagnosis in 2012 with a recent recurrences locally and status post radiation therapy patient did have a recent admission to the hospital with a positive blood culture with micrococcus thought to be contaminant as repeat cultures were negative patient did have extensive work-up including VIC CT abdominal pelvis is also negative patient did have a CT of the chest this admission that was negative for acute disease currently do not have any localizing signs symptoms of infection with an episode of vomiting and gallstone questionable gallbladder disease. 2-patien HIDA scan is abnormal and concern for chronic cholecystitis and possible source of his fever and will benefit from general surgery evaluation 3-patient to continue with the cefepime Time with Patient: Less than 30
[2021-05-29] MEDS: APIXABAN 5 MG TAB PO SCH (20:02)
[2021-05-30] MEDS: CEFEPIME 2 GM in SODIUM CHLORIDE 0.9% 100 ML IVPB SCH ×3 (03:50→19:13)
[2021-05-30] MEDS: VANCOMYCIN 1,500 MG in SODIUM CHLORIDE 0.9% 250 ML IVPB SCH (06:58)
[2021-05-30 07:11] LABS: African American GFR (CKD) >90 (>60 ml/min/1.73 sqM); Non-African American GFR(CKD) 88 (>60 ml/min/1.73 sqM)
[2021-05-30] MEDS: MAGNESIUM OXIDE 400 MG TAB PO SCH (09:29)
[2021-05-30] MEDS: APIXABAN 5 MG TAB PO SCH (09:29)
[2021-05-30] MEDS: PANTOPRAZOLE 40 MG TABLET PO SCH (09:29)
[2021-05-30] MEDS: FOLIC ACID 1 MG TAB PO SCH (09:29)
[2021-05-30] MEDS: CHOLECALCIFEROL 25 MCG (1000 IU) TABLET PO SCH (09:29)
[2021-05-30] MEDS: DILTIAZEM CD 180 MG CAP.ER.24H PO SCH (09:30)
[2021-05-30] MEDS: FLECAINIDE 50 MG TAB PO SCH ×2 (09:30→20:42)
[2021-05-30] MEDS: NON FORMULARY DRUG (Glucosam/Chon-Msm1/C/Mang/Bosw [Glucosamine-Chondroitin Tablet] 1 EACH PO SCH ×2 (09:32→20:40)
--- NOTE | 2021-05-30 10:29 | P.PN ---
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 Patient has done very well still seen oncology on regular basis. 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 Patient over a week ago was not feeling well he was seen at his oncologist office blood test was done result came back with positive culture for gram- positive cocci patient ended up coming to the hospital for positive blood culture require IV antibiotic was hospitalized for total of 5 days ended up having many testing at the time including CT of the abdomen and pelvis, echocardiogram and transesophageal echocardiogram also was seen infectious disease cardiology along with oncology final conclusion after the culture was done at the hospital at that time came back negative and his blood culture as an outpatient was blamed to be contamination. Patient was sent home with no IV or oral antibiotic at this time was doing well for the first 2 days. In the last 48 hours patient developed to have fever or chills fatigue tiredness and overall not feeling well his temperature is going as high as 103 sometimes. White blood cell had climb up quite bed from 19-32,000 patient ended up coming to the emergency department at [facility] where was seen and evaluated contacted his oncologist and decided to admit patient for sepsis or fever of unknown origin. Patient was giving 1 g of vancomycin consult oncology and infectious disease culture was done and patient was hospitalized. 05/27: He had an episode of fever and chills last night, his culture so far still negative for the last 24 hours. Liver function test on his blood work originally came back mildly elevated with elevated alkaline phosphatase lipase was normal at this point. Urine was negative. With the current finding patient be going for ultrasound of the liver and because of the sensitivity of the fever of unknown origin patient will be going for MRCP to exclude any possibility of ascending cholangitis in the meanwhile with no other finding patient will stop taking anticoagulation and prepare for LP on Saturday to exclude meningitis if that's negative patient furthermore should be going for bone marrow biopsy. Antibiotic management and treatment was changed patient was supposed to receive 1 g of vancomycin originally but he was giving Rocephin because of ALLERGY to penicillin and could not be on Zosyn we will add levofloxacin at this point infectious disease seen patient by then if decided to do Vanco or change the entire management per ID recommendation. 05/28: He is feeling little better continue to have fatigue and tiredness but no fever or chills. Ultrasound of the gallbladder came back with slight abnormality with stone in the neck of the gallbladder patient be going for HIDA scan tomorrow. Also talk about doing white blood cell tag scan for possible finding any focal area can be claimed to be the site of infection. The meanwhile still scheduled for HIDA scan and lumbar puncture with analysis of the spinal fluid by tomorrow. 05/29: Patient underwent HIDA scan which revealed gallbladder filling, no evidence of acute cholecystitis. Her telemetry abnormal gallbladder ejection fraction of 0%. Correlate for chronic cholecystitis or biliary dyskinesia. Oncology has recommended considering LP and CSF analysis, cytology and flow cytometry. If patient continues to run fever, oncology is planning for bone marrow biopsy. Patient is continued on cefepime and vancomycin. Patient has been afebrile since 05/27 at 1600. 05/30: Patient denies any concerns today. No fever or chills. No nausea vomiting no diarrhea. No abdominal pain. No cough or shortness of breath. He is tolerating a regular diet. Patient is followed by infectious disease and oncology. No plan at this time for LP or bone marrow biopsy. We will add consult in for Dr. Horne regarding abnormal HIDA scan. Dr. Coon is recommending continuing cefepime. Most likely monitor patient overnight and discharge home tomorrow REVIEW OF SYSTEMS Constitutional: No fever and no chills and night sweats. Positive weight change. No weakness, fatigue and lethargy. No daytime sleepiness. EENT: No headache. No blurred vision or double vision, no loss of vision. No loss of Hearing, no ringing in the ears, no dizziness. No nasal drainage or congestion. No epistaxis. No sore throat. Lungs: Denies shortness of breath, no cough, no sputum production. No wheezing. Cardiovascular: No chest pain, no lower extremity edema. No palpitations. No paroxysmal nocturnal dyspnea. No orthopnea. No lightheadedness or dizziness. No syncopal episodes. Abdominal: No abdominal pain. No nausea, vomiting. No diarrhea. No constipation. No bloody or tarry stools.. No loss of appetite. Genitourinary: No dysuria, increased frequency, urgency. No urinary retention. Musculoskeletal: No myalgias. No muscle weakness, no gait dysfunction, no frequent falls. No back pain. No neck pain. Integumentary: No wounds, no lesions. No rash or pruritus. No unusual bruising. No change in hair or nails. Neurologic: No aphasia. No facial droop. No change in mentation. No head injury. No headache. No paralysis. No paresthesia. Psychiatric: No depression. No anxiety. No mood swings. Endocrine: No abnormal blood sugars. No weight change. No excessive sweating or thirst. No cold intolerance. PHYSICAL EXAMINATION Gen: This is a well-developed was having fever and chills does not look in any respiratory distress. HEENT: Head is atraumatic, normocephalic. Pupils equal, round. Sclerae is anicteric. No neck rigidity. The left cheek area had scar tissue from his ment al lymphoma and radiation site. NECK: Supple. No JVD. No lymphadenopathy. No thyromegaly. LUNGS: Clear to auscultation. No wheezes or rhonchi. No intercostal retractions. HEART: Regular rate and rhythm. No murmur. ABDOMEN: Soft. Bowel sounds are present. No abdominal tenderness, no rebound or rigidity. EXTREMITIES: No pedal edema. No calf tenderness. NEUROLOGICAL: Patient is awake, alert and oriented x3. Cranial nerves 2 through 12 are grossly intact. No motor deficit no abnormal balance and gait. ASSESSMENT AND PLAN 1. Fever of unknown origin. HIDA scan as above, consult Dr. Horne. Patient is followed by infectious disease and continued on cefepime and vancomycin. Oncology does not plan to pursue LP/bone marrow biopsy 2 mental cell lymphoma: Has been treated and done well so far patient seen oncology on regular basis.apparently with recurrent base and the left cheek area patient possibility of having this occur elsewhere will be very high. 3 paroxysmal atrial fibrillation. Continue on eliquis 5 mg twice daily, Cardizem CD 180 mg daily, flecainide 100 mg twice daily. 4 thoracic aneurysm: Size is still less than 5 cm been watch carefully. 5 reactive airway/asthma: Has been doing well lately no flareup still seen pulmonary will have Ventolin inhaler on as-needed basis. 6 BPH: With no sign of infection or prostatitis no sign of obstruction has been doing well so far. 7 incidental cholelithiasis: Patient is not having any increase abdominal pain nausea vomiting to claim his symptoms on the gallbladder at this point. 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 9 GI prophylaxis: Patient will be on pantoprazole. CODE STATUS: Full code. DICHARGE PLAN Home without home care on Saturday Impression and plan of care have been directed as dictated by the signing physician. Gianna Silver nurse practitioner acting as scribe for signing physician. Objective - Vital Signs Vital signs: Vital Signs Temp 97.7 F 05/30/21 07:46 Pulse 67 05/30/21 07:46 Resp 17 05/30/21 07:46 BP 126/85 05/30/21 07:46 Pulse Ox 96 05/30/21 04:08 Intake & Output 05/29/21 05/30/21 05/30/21 18:59 06:59 18:59 Intake Total 100 Balance 100 Intake: Intake, IV Titration 100 Amount Cefepime 2 gm In Sodium 100 Chloride 0.9% 100 ml @ 25 mls/hr IVPB Q8H [facility] Rx#: [id number] Other: Voiding Method Toilet Urinal # Voids 3 - Labs CBC & Chem 7: 05/29/21 05:51 05/30/21 06:39 Labs: Microbiology - Last 24 Hours (Table) 05/27/21 18:49 Blood Culture - Preliminary Blood No Growth after 48 hours 05/26/21 10:12 Blood Culture - Preliminary Blood No Growth after 72 hours 05/26/21 10:01 Blood Culture - Preliminary Blood No Growth after 72 hours
--- NOTE | 2021-05-30 16:30 | P.PN ---
Subjective Progress Note Date: 05/30/21 Principal diagnosis: fever Pt continues to feels good today, no fever, N, cough, abd pain, diarrhea. Objective - Vital Signs Vital signs: Vital Signs Temp 97.9 F 05/30/21 11:09 Pulse 59 L 05/30/21 11:09 Resp 18 05/30/21 11:09 BP 116/66 05/30/21 11:09 Pulse Ox 97 05/30/21 11:09 Intake & Output 05/29/21 05/30/21 05/30/21 18:59 06:59 18:59 Intake Total 100 Balance 100 Intake: Intake, IV Titration 100 Amount Cefepime 2 gm In Sodium 100 Chloride 0.9% 100 ml @ 25 mls/hr IVPB Q8H [facility] Rx#: [id number] Other: Voiding Method Toilet Urinal # Voids 3 - Constitutional General appearance: Present: average body habitus, cooperative, no acute distress - EENT Eyes: Present: anicteric sclerae, EOMI ENT: Present: hearing grossly normal - Respiratory Details: respirations even and unlabored - Musculoskeletal Musculoskeletal: Present: generalized weakness - Psychiatric Psychiatric: Present: A&O x's 3, appropriate affect, intact judgment & insight - Labs CBC & Chem 7: 05/29/21 05:51 05/30/21 06:39 Labs: Microbiology - Last 24 Hours (Table) 05/26/21 10:12 Blood Culture - Preliminary Blood No Growth after 96 hours 05/26/21 10:01 Blood Culture - Preliminary Blood No Growth after 96 hours 05/27/21 18:49 Blood Culture - Preliminary Blood No Growth after 48 hours Assessment and Plan (1) Febrile illness, acute Narrative/Plan: [place] to be related to cholecystitis. Patient is on antibiotics, fever pattern has abated. Plan is to treat with antibiotics, have patient evaluated by Surgeon and plan for a cholecystectomy in the next few weeks Current Visit: Yes Status: Acute Priority: High Code(s): R50.9 - FEVER, UNSPECIFIED SNOMED Code(s): 951480478 (2) Mantle cell lymphoma Narrative/Plan: Recurrent fevers/sweats felt to be related to infection and not recurrent mantle cell lymphoma. Patient will continue on follow-up as scheduled. Current Visit: No Status: Chronic Priority: Medium Code(s): C83.10 - MANTLE CELL LYMPHOMA, UNSPECIFIED SITE SNOMED Code(s): 953584555 Plan: Resumed eliquis. Pt will hold 2 days prior to surgery No bone marrow bx or LP needed at this time as source of infection has been identified MRI head at [facility]-pending tumor board review of cyst. Doctor attests: I performed a history and physical examination of this patient, developed impression and plan of care. Discussed with dictator. I agree with dictators note, documented as a scribe.
[2021-05-30] MEDS: NON FORMULARY DRUG (Turmeric Root Extract [Turmeric] 500 MG Capsule) PO SCH (16:37)
--- NOTE | 2021-05-30 17:43 | P.GSCN ---
History of Present Illness Consult date: 05/30/21 Reason for Consult: Cholecystitis History of present illness: 75-year-old male hospitalized with complaints of fevers and chills. The patient had a fever as high as 103. Significant leukocytosis identified. Patient with history of mantle cell lymphoma diagnosed in 2012. This did involve the abdomen at the time of diagnosis. Patient was treated with chemotherapy and responded well. Recently had a recurrent lymphoma involving the left side of his face. He underwent radiation treatment to that area and has done well. Outpatient blood cultures showed gram-positive cocci. Patient was treated with antibiotics as an inpatient. He underwent CT abdomen and pelvis, echocardiogram, infectious disease cardiology and oncology consultation. He was discharged home. After going home the patient returned with recurrent fevers. White blood cell count increased to 32,000. Patient's liver enzymes have been somewhat elevated. Looking back however the patient has had intermittent transaminase and alkaline phosphatase elevation in the past. He has a history of known gallstones. MRCP was ordered which showed gallstones without any evidence of choledocholithiasis. Patient was treated for possible ascending cholangitis with antibiotic treatment. Liver enzymes have improved. He also underwent ultrasound and HIDA scan during this hospital stay. Ultrasound showed gallstones with a sonographic positive Wu sign. HIDA scan showed a ejection fraction of 0% however the gallbladder did fill. Patient denies abdominal pain. Says he has not been having any right-sided abdominal or back pain. Feels better now than when he came to the hospital. Review of Systems The patient denies any acute changes in vision or hearing, no dysphagia or odynophagia, no chest pain or shortness of breath, no dysuria or hematuria, no headache, no runny nose, no rectal bleeding or melena, no unexplained weight loss Past Medical History Past Medical History: Atrial Fibrillation, Cancer, Osteoarthritis (OA) Additional Past Medical History / Comment(s): Mantle Lymphoma, Basal Cell Carcinoma Oct 2012 (in remission), hx Bronchitis. aortic aneurysm History of Any Multi-Drug Resistant Organisms: None Reported Past Surgical History: Hernia Repair, Joint Replacement Additional Past Surgical History / Comment(s): Removal of skin cancer, bone marrow transplant, right knee replacement Past Anesthesia/Blood Transfusion Reactions: No Reported Reaction Past Psychological History: No Psychological Hx Reported Smoking Status: Never smoker Past Alcohol Use History: None Reported Past Drug Use History: None Reported - Past Family History Brother(s) Family Medical History: Cancer Additional Family Medical History / Comment(s): . Father Family Medical History: No Reported History Additional Family Medical History / Comment(s): Father was healthy and lived to be 95 yrs old. Mother Family Medical History: Vascular Disorder Additional Family Medical History / Comment(s): Mother at the age of 74 yrs from a ruptured aortic aneurysm. Son(s) Additional Family Medical History / Comment(s): Patient has 2 sons with no major medical problems. Patient doesn't have any sisters. Medications and Allergies Home Medications Medication Instructions Recorded Confirmed Type Meloxicam 7.5 mg PO DAILY 01/12/14 05/26/21 History Gentle Iron 28 1 cap PO Q48H 03/03/19 05/26/21 History Magnesium Gluconate 100mg 100 mg PO DAILY 03/03/19 05/26/21 History Turmeric Root Extract [Turmeric] 500 mg PO Q48H 03/03/19 05/26/21 History Apixaban [Eliquis] 5 mg PO BID #60 tab 03/05/19 05/26/21 Rx Diltiazem Cd [Cardizem CD] 180 mg PO DAILY 10/30/19 05/26/21 History Flecainide Acetate [Tambocor] 100 mg PO BID 12/17/19 05/26/21 History Cholecalciferol [Vitamin D3 (25 25 mcg PO DAILY 08/31/20 05/26/21 History Mcg = 1000 Iu)] Glucosam/Amador-Msm1/C/Julio/Bosw 1 tab PO BID 05/15/21 05/26/21 History [Glucosamine-Chondroitin Tablet] Allergies Allergy/AdvReac Type Severity Reaction Status Date / Time Penicillins Allergy Severe Rash/Hives Verified 05/26/21 10:33 over entire body anidulafungin AdvReac Chest Verified 05/26/21 10:33 Pain/Severe Arm pain with infusion benzonatate AdvReac Dyspnea Verified 05/26/21 10:33 [From Harper Yanez] Surgical - Exam Vital Signs Temp Pulse Resp BP Pulse Ox 103.2 F H 111 H 20 134/68 95 05/26/21 09:26 05/26/21 09:26 05/26/21 09:26 05/26/21 09:26 05/26/21 09:26 Physical exam: General: Well-developed, well-nourished HEENT: Normocephalic, sclerae nonicteric Abdomen: Nontender, nondistended Extremities: No edema Neuro: Alert and oriented Results - Labs 05/29/21 05:51 05/30/21 06:39 Microbiology - Last 24 Hours (Table) 05/26/21 10:12 Blood Culture - Preliminary Blood No Growth after 96 hours 05/26/21 10:01 Blood Culture - Preliminary Blood No Growth after 96 hours 05/27/21 18:49 Blood Culture - Preliminary Blood No Growth after 48 hours Diabetes panel 05/30/21 Range/Units 06:39 Creatinine 0.81 (0.66-1.25) mg/dL Pituitary panel 05/30/21 Range/Units 06:39 Creatinine 0.81 (0.66-1.25) mg/dL Adrenal panel 05/30/21 Range/Units 06:39 Creatinine 0.81 (0.66-1.25) mg/dL Assessment and Plan (1) Cholecystitis Narrative/Plan: 75-year-old male admitted for recurrent sepsis. Source of fevers and leukocytosis has not been identified with certainty. Certainly the ultrasound showing a sonographic Wu sign along with gallstones and the recent increase in liver enzymes raises the possibility of cholecystitis contributing to the patient's clinical picture. Discussed with patient that cholecystectomy is a viable option however no guarantee that this is the etiology for his problem currently. Case was discussed with his oncologist and also Dr. Meza. Offered to proceed with cholecystectomy after holding eloquis if that is the patient's and medical services desire. We'll tentatively place on schedule for cholecystectomy on and hold his eloquis for now in the event that s urgery is chosen as the next course of action. Risks of bleeding, infection, bile leak, bile duct injury, retained common bile duct stone, trocar injury, conversion to an open procedure, hernia, anesthesia related complications, persistent fevers and leukocytosis were reviewed. Current Visit: Yes Status: Acute Code(s): K81.9 - CHOLECYSTITIS, UNSPECIFIED SNOMED Code(s): 18376664
--- NOTE | 2021-05-30 23:24 | P.PN ---
Subjective Progress Note Date: 05/30/21 Principal diagnosis: Fever Patient is a 75-year-old male with a past medical history significant for mantle cell lymphoma, in this patient recently did have a recurrence treated with local radiation, presented to hospital with a fever. On today's evaluation that is 05/30/2021, the patient remains to be afebrile and the patient is breathing comfortably on room air, the patient denies any chest pain shortness of cough no nausea no vomiting no abdominal pain or diarrhea Objective - Vital Signs Vital signs: Vital Signs Temp 97.7 F 05/30/21 07:46 Pulse 67 05/30/21 07:46 Resp 17 05/30/21 07:46 BP 126/85 05/30/21 07:46 Pulse Ox 96 05/30/21 04:08 Intake & Output 05/29/21 05/30/21 05/30/21 18:59 06:59 18:59 Intake Total 100 Balance 100 Intake: Intake, IV Titration 100 Amount Cefepime 2 gm In Sodium 100 Chloride 0.9% 100 ml @ 25 mls/hr IVPB Q8H [facility] Rx#: [id number] Other: Voiding Method Toilet Urinal # Voids 3 - Exam GENERAL DESCRIPTION: An elderly male lying in bed in no distress RESPIRATORY SYSTEM: Unlabored breathing , decreased breath sounds at bases HEART: S1 S2 regular rate and rhythm , ABDOMEN: Soft , no tenderness EXTREMITIES: No edema feet - Labs CBC & Chem 7: 05/29/21 05:51 05/30/21 06:39 Labs: Microbiology - Last 24 Hours (Table) 05/27/21 18:49 Blood Culture - Preliminary Blood No Growth after 48 hours 05/26/21 10:12 Blood Culture - Preliminary Blood No Growth after 72 hours 05/26/21 10:01 Blood Culture - Preliminary Blood No Growth after 72 hours Assessment and Plan (1) Febrile illness, acute Current Visit: Yes Status: Acute Priority: High Code(s): R50.9 - FEVER, UNSPECIFIED SNOMED Code(s): 455767088 Plan: 1patient with fever in this patient who do have a history of mantle cell lymphoma initial diagnosis in 2012 with a recent recurrences locally and status post radiation therapy patient did have a recent admission to the hospital with a positive blood culture with micrococcus thought to be contaminant as repeat cultures were negative patient did have extensive work-up including VIC CT abdominal pelvis is also negative patient did have a CT of the chest this admission that was negative for acute disease currently do not have any localizing signs symptoms of infection with an episode of vomiting and gallstone questionable gallbladder disease. 2-patien HIDA scan is abnormal and concern for chronic cholecystitis and possible source of his fever and will benefit from general surgery evaluation 3-patient to continue with the cefepime however discontinue vancomycin to decrease risk for a nephrotoxicity and less risk of gram-positive infection Time with Patient: Less than 30
[2021-05-31] MEDS: CEFEPIME 2 GM in SODIUM CHLORIDE 0.9% 100 ML IVPB SCH ×3 (03:33→19:21)
[2021-05-31] MEDS: CHOLECALCIFEROL 25 MCG (1000 IU) TABLET PO SCH (07:41)
[2021-05-31] MEDS: PANTOPRAZOLE 40 MG TABLET PO SCH (07:41)
[2021-05-31] MEDS: DILTIAZEM CD 180 MG CAP.ER.24H PO SCH (07:42)
[2021-05-31] MEDS: FERROUS SULFATE 325 MG TAB PO SCH (07:42)
[2021-05-31] MEDS: MAGNESIUM OXIDE 400 MG TAB PO SCH (07:42)
[2021-05-31] MEDS: FOLIC ACID 1 MG TAB PO SCH (07:42)
[2021-05-31] MEDS: FLECAINIDE 50 MG TAB PO SCH ×2 (07:42→19:21)
[2021-05-31] MEDS: NON FORMULARY DRUG (Glucosam/Chon-Msm1/C/Mang/Bosw [Glucosamine-Chondroitin Tablet] 1 EACH PO SCH ×2 (09:14→19:23)
--- NOTE | 2021-05-31 09:55 | P.PN ---
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 Patient has done very well still seen oncology on regular basis. 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 Patient over a week ago was not feeling well he was seen at his oncologist office blood test was done result came back with positive culture for gram- positive cocci patient ended up coming to the hospital for positive blood culture require IV antibiotic was hospitalized for total of 5 days ended up having many testing at the time including CT of the abdomen and pelvis, echocardiogram and transesophageal echocardiogram also was seen infectious disease cardiology along with oncology final conclusion after the culture was done at the hospital at that time came back negative and his blood culture as an outpatient was blamed to be contamination. Patient was sent home with no IV or oral antibiotic at this time was doing well for the first 2 days. In the last 48 hours patient developed to have fever or chills fatigue tiredness and overall not feeling well his temperature is going as high as 103 sometimes. White blood cell had climb up quite bed from 19-32,000 patient ended up coming to the emergency department at [facility] where was seen and evaluated contacted his oncologist and decided to admit patient for sepsis or fever of unknown origin. Patient was giving 1 g of vancomycin consult oncology and infectious disease culture was done and patient was hospitalized. 05/27: He had an episode of fever and chills last night, his culture so far still negative for the last 24 hours. Liver function test on his blood work originally came back mildly elevated with elevated alkaline phosphatase lipase was normal at this point. Urine was negative. With the current finding patient be going for ultrasound of the liver and because of the sensitivity of the fever of unknown origin patient will be going for MRCP to exclude any possibility of ascending cholangitis in the meanwhile with no other finding patient will stop taking anticoagulation and prepare for LP on Saturday to exclude meningitis if that's negative patient furthermore should be going for bone marrow biopsy. Antibiotic management and treatment was changed patient was supposed to receive 1 g of vancomycin originally but he was giving Rocephin because of ALLERGY to penicillin and could not be on Zosyn we will add levofloxacin at this point infectious disease seen patient by then if decided to do Vanco or change the entire management per ID recommendation. 05/28: He is feeling little better continue to have fatigue and tiredness but no fever or chills. Ultrasound of the gallbladder came back with slight abnormality with stone in the neck of the gallbladder patient be going for HIDA scan tomorrow. Also talk about doing white blood cell tag scan for possible finding any focal area can be claimed to be the site of infection. The meanwhile still scheduled for HIDA scan and lumbar puncture with analysis of the spinal fluid by tomorrow. 05/29: Patient underwent HIDA scan which revealed gallbladder filling, no evidence of acute cholecystitis. Her telemetry abnormal gallbladder ejection fraction of 0%. Correlate for chronic cholecystitis or biliary dyskinesia. Oncology has recommended considering LP and CSF analysis, cytology and flow cytometry. If patient continues to run fever, oncology is planning for bone marrow biopsy. Patient is continued on cefepime and vancomycin. Patient has been afebrile since 05/27 at 1600. 05/30: Patient denies any concerns today. No fever or chills. No nausea vomiting no diarrhea. No abdominal pain. No cough or shortness of breath. He is tolerating a regular diet. Patient is followed by infectious disease and oncology. No plan at this time for LP or bone marrow biopsy. We will add consult in for Dr. Horne regarding abnormal HIDA scan. Dr. Coon is recommending continuing cefepime. Most likely monitor patient overnight and discharge home tomorrow. 05/31: Patient was seen yesterday by Dr. Horne and is scheduled for cholecystectomy tomorrow. Dr. Coon recommends continuing cefepime and discontinuing vancomycin. Patient has been afebrile, heart rate 65, blood pressure 112/58, pulse ox 96% on room air. Patient states that he is feeling well today. Dr. Meza updated patient's over the phone. REVIEW OF SYSTEMS Constitutional: No fever and no chills and night sweats. Positive weight change. No weakness, fatigue and lethargy. No daytime sleepiness. EENT: No headache. No blurred vision or double vision, no loss of vision. No loss of Hearing, no ringing in the ears, no dizziness. No nasal drainage or congestion. No epistaxis. No sore throat. Lungs: Denies shortness of breath, no cough, no sputum production. No wheezing. Cardiovascular: No chest pain, no lower extremity edema. No palpitations. No paroxysmal nocturnal dyspnea. No orthopnea. No lightheadedness or dizziness. No syncopal episodes. Abdominal: No abdominal pain. No nausea, vomiting. No diarrhea. No constipation. No bloody or tarry stools.. No loss of appetite. Genitourinary: No dysuria, increased frequency, urgency. No urinary retention. Musculoskeletal: No myalgias. No muscle weakness, no gait dysfunction, no fr equent falls. No back pain. No neck pain. Integumentary: No wounds, no lesions. No rash or pruritus. No unusual bruising. No change in hair or nails. Neurologic: No aphasia. No facial droop. No change in mentation. No head injury. No headache. No paralysis. No paresthesia. Psychiatric: No depression. No anxiety. No mood swings. Endocrine: No abnormal blood sugars. No weight change. PHYSICAL EXAMINATION Gen: This is a well-developed 75-year-old male. He is resting in the recliner and appears to be comfortable and in no acute distress. HEENT: Head is atraumatic, normocephalic. Pupils equal, round. Sclerae is anicteric. No neck rigidity. The left cheek area had scar tissue from his mental lymphoma and radiation site. NECK: Supple. No JVD. No lymphadenopathy. No thyromegaly. LUNGS: Clear to auscultation. No wheezes or rhonchi. No intercostal retractions. HEART: Regular rate and rhythm. No murmur. ABDOMEN: Soft. Bowel sounds are present. No abdominal tenderness, no rebound or rigidity. EXTREMITIES: No pedal edema. No calf tenderness. NEUROLOGICAL: Patient is awake, alert and oriented x3. Cranial nerves 2 through 12 are grossly intact. No motor deficit no abnormal balance and gait. ASSESSMENT AND PLAN 1. Fever of unknown origin. HIDA scan as above, consult Dr. Horne and scheduled for cholecystectomy tomorrow. Patient is followed by infectious disease and continued on cefepime. 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 3 paroxysmal atrial fibrillation. Continue on eliquis 5 mg twice daily, Cardizem CD 180 mg daily, flecainide 100 mg twice daily. 4 thoracic aneurysm: Size is still less than 5 cm been watch carefully. 5 reactive airway/asthma: Has been doing well lately no flareup still seen pulmonary will have Ventolin inhaler on as-needed basis. 6 BPH: With no sign of infection or prostatitis no sign of obstruction has been doing well so far. 7 incidental cholelithiasis: Patient is not having any increase abdominal pain nausea vomiting to claim his symptoms on the gallbladder at this point. 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 9 GI prophylaxis: Patient will be on pantoprazole. CODE STATUS: Full code. DICHARGE PLAN Home without home care on or Saturday Impression and plan of care have been directed as dictated by the signing physician. Gianna Silver nurse practitioner acting as scribe for signing physici an. Objective - Vital Signs Vital signs: Vital Signs Temp 98.2 F 05/31/21 05:00 Pulse 65 05/31/21 05:00 Resp 18 05/31/21 05:00 BP 112/58 05/31/21 05:00 Pulse Ox 96 05/31/21 05:00 Intake & Output 05/30/21 05/31/21 05/31/21 18:59 06:59 18:59 Intake Total 960 Balance 960 Intake: Intake, IV Titration 600 Amount Cefepime 2 gm In Sodium 100 Chloride 0.9% 100 ml @ 25 mls/hr IVPB Q8H [facility] Rx#: [id number] Vancomycin 1,500 mg In 500 Sodium Chloride 0.9% 250 ml @ 125 mls/hr IVPB Q12H [facility] Rx#:[id number] Oral 360 Other: Voiding Method Toilet Urinal # Voids 1 - Labs CBC & Chem 7: 05/29/21 05:51 05/30/21 06:39 Labs: Microbiology - Last 24 Hours (Table) 05/27/21 18:49 Blood Culture - Preliminary Blood No Growth after 72 hours 05/26/21 10:12 Blood Culture - Preliminary Blood No Growth after 96 hours 05/26/21 10:01 Blood Culture - Preliminary Blood No Growth after 96 hours
[2021-05-31 11:14] LABS: C Reactive Protein 4.2 mg/dL (0.00-0.80)
[2021-05-31 11:26] LABS: African American GFR (CKD) 108.5 (60.0-200.0); Albumin 2.5 g/dL (3.8-4.9); Albumin/Globulin Ratio 1.25 (1.60-3.17); Anion Gap 8.8 mmol/L (10.00-18.00); BUN/Creat Ratio 18.14 Ratio (12.00-20.00); Blood Urea Nitrogen 12.7 mg/dL (9.0-27.0); Carbon Dioxide 27.2 mmol/L (20.0-27.5); Non-African American GFR(CKD) 93.6 (60.0-200.0); Potassium 3.8 mmol/L (3.5-5.5); Total Bilirubin 0.3 mg/dL (0.30-1.20); Total Protein 4.5 g/dL (6.2-8.2)
--- NOTE | 2021-05-31 11:46 | P.PN ---
Subjective Progress Note Date: 05/31/21 Principal diagnosis: Chronic cholecystitis Patient doing about the same today. No further fevers. Labs pending from today. Mild nausea. No abdominal pain. Objective - Vital Signs Vital signs: Vital Signs Temp 98.2 F 05/31/21 05:00 Pulse 65 05/31/21 05:00 Resp 18 05/31/21 05:00 BP 112/58 05/31/21 05:00 Pulse Ox 96 05/31/21 05:00 Intake & Output 05/30/21 05/31/21 05/31/21 18:59 06:59 18:59 Intake Total 960 Balance 960 Intake: Intake, IV Titration 600 Amount Cefepime 2 gm In Sodium 100 Chloride 0.9% 100 ml @ 25 mls/hr IVPB Q8H [facility] Rx#: [id number] Vancomycin 1,500 mg In 500 Sodium Chloride 0.9% 250 ml @ 125 mls/hr IVPB Q12H [facility] Rx#:[id number] Oral 360 Other: Voiding Method Toilet Urinal # Voids 1 - Exam Abdomen: Soft, nontender, nondistended - Labs CBC & Chem 7: 05/29/21 05:51 05/31/21 06:41 Labs: Abnormal Lab Results - Last 24 Hours (Table) 05/31/21 Range/Units 06:41 Anion Gap 8.80 L (10.00-18.00) mmol/L Calcium 8.0 L (8.7-10.3) mg/dL AST 36 H (14-35) U/L ALT 62 H (10-49) U/L Alkaline Phosphatase 213 H (41-126) U/L C-Reactive Protein 4.20 H (0.00-0.80) mg/dL Total Protein 4.5 L (6.2-8.2) g/dL Albumin 2.5 L (3.8-4.9) g/dL Albumin/Globulin Ratio 1.25 L (1.60-3.17) g/dL Microbiology - Last 24 Hours (Table) 05/27/21 18:49 Blood Culture - Preliminary Blood No Growth after 72 hours 05/26/21 10:12 Blood Culture - Preliminary Blood No Growth after 96 hours 05/26/21 10:01 Blood Culture - Preliminary Blood No Growth after 96 hours Assessment and Plan (1) Cholecystitis Narrative/Plan: Critical scenario again reviewed with the patient. He discussed the case with his primary care physician. They are also reporting plans for cholecystectomy. We'll proceed with laparoscopic, possible open cholecystectomy tomorrow. Risks of bleeding, infection, bile leak, bile duct injury, retained common bile duct stone, trocar injury, conversion to an open procedure, hernia, anesthesia relate d complications were reviewed. The patient understands and wishes to proceed. Current Visit: Yes Status: Acute Code(s): K81.9 - CHOLECYSTITIS, UNSPECIFIED SNOMED Code(s): 98031433
[2021-05-31] MEDS: ACETAMINOPHEN TAB 325 MG TAB PO PRN (14:09)
--- NOTE | 2021-05-31 15:52 | P.PN ---
Subjective Progress Note Date: 05/31/21 Principal diagnosis: fever Pt continues to feels good today, no fever, N, cough, abd pain, diarrhea. Objective - Vital Signs Vital signs: Vital Signs Temp 97.6 F 05/31/21 12:41 Pulse 59 L 05/31/21 12:41 Resp 16 05/31/21 12:41 BP 114/68 05/31/21 12:41 Pulse Ox 96 05/31/21 12:41 Intake & Output 05/30/21 05/31/21 05/31/21 18:59 06:59 18:59 Intake Total 960 Balance 960 Intake: Intake, IV Titration 600 Amount Cefepime 2 gm In Sodium 100 Chloride 0.9% 100 ml @ 25 mls/hr IVPB Q8H [facility] Rx#: [id number] Vancomycin 1,500 mg In 500 Sodium Chloride 0.9% 250 ml @ 125 mls/hr IVPB Q12H [facility] Rx#:[id number] Oral 360 Other: Voiding Method Toilet Urinal # Voids 1 - Constitutional General appearance: Present: average body habitus, cooperative, no acute distress - EENT Eyes: Present: anicteric sclerae, EOMI ENT: Present: hearing grossly normal - Respiratory Details: resp even and unlabored - Peripheral edema leg Peripheral Edema: bilateral: None - Neurologic Neurologic: Present: CNII-XII intact - Psychiatric Psychiatric: Present: A&O x's 3, appropriate affect, intact judgment & insight - Labs CBC & Chem 7: 05/29/21 05:51 05/31/21 06:41 Labs: Abnormal Lab Results - Last 24 Hours (Table) 05/31/21 Range/Units 06:41 Anion Gap 8.80 L (10.00-18.00) mmol/L Calcium 8.0 L (8.7-10.3) mg/dL AST 36 H (14-35) U/L ALT 62 H (10-49) U/L Alkaline Phosphatase 213 H (41-126) U/L C-Reactive Protein 4.20 H (0.00-0.80) mg/dL Total Protein 4.5 L (6.2-8.2) g/dL Albumin 2.5 L (3.8-4.9) g/dL Albumin/Globulin Ratio 1.25 L (1.60-3.17) g/dL Microbiology - Last 24 Hours (Table) 05/26/21 10:12 Blood Culture - Preliminary Blood No Growth after 120 hours 05/26/21 10:01 Blood Culture - Preliminary Blood No Growth after 120 hours 05/27/21 18:49 Blood Culture - Preliminary Blood No Growth after 72 hours Assessment and Plan (1) Febrile illness, acute Narrative/Plan: [place] to be related to cholecystitis. Patient is on antibiotics, fever pattern has abated. Current Visit: Yes Status: Acute Priority: High Code(s): R50.9 - FEVER, UNSPECIFIED SNOMED Code(s): 293699768 (2) Mantle cell lymphoma Narrative/Plan: Recurrent fevers/sweats felt to be related to infection and not recurrent mantle cell lymphoma. Patient will continue on follow-up as scheduled. Additional testing if surgery does not resolve symptoms Current Visit: No Status: Chronic Priority: Medium Code(s): C83.10 - MANTLE CELL LYMPHOMA, UNSPECIFIED SITE SNOMED Code(s): 203444725 Plan: Plan is now is for surgery tomorrow. Attending, Surgeon and Onc have discussed No bone marrow bx or LP needed at this time as source of infection has been identified. If fevers do not resolve will plan for further lymphoma work up MRI head at [facility]-pending tumor board review of cyst.
[2021-06-01] MEDS: CEFEPIME 2 GM in SODIUM CHLORIDE 0.9% 100 ML IVPB SCH ×3 (03:22→19:43)
[2021-06-01 06:47] LABS: African American GFR (CKD) >90 (>60 ml/min/1.73 sqM); Non-African American GFR(CKD) >90 (>60 ml/min/1.73 sqM)
[2021-06-01] MEDS ORDERED: ONDANSETRON 4 MG/2 ML VIAL IVP ONE (06:59)
[2021-06-01] MEDS ORDERED: LIDOCAINE 1% (10MG/ML) FOR IV START INTRADERMA PRN (06:59)
[2021-06-01] MEDS ORDERED: DEXAMETHASONE SOD PHOSPHATE 4 MG/ML 1 ML VIAL IV ONE (06:59)
[2021-06-01] MEDS ORDERED: HYDROmorphone 0.5 MG/0.5 ML SYRINGE IVP PRN (07:00)
[2021-06-01] MEDS ORDERED: METOCLOPRAMIDE 5 MG/ML 2 ML VIAL IVP PRN (07:00)
[2021-06-01] MEDS: CHOLECALCIFEROL 25 MCG (1000 IU) TABLET PO SCH (07:21)
[2021-06-01] MEDS: PANTOPRAZOLE 40 MG TABLET PO SCH (07:21)
[2021-06-01] MEDS: FOLIC ACID 1 MG TAB PO SCH (07:22)
[2021-06-01] MEDS: NON FORMULARY DRUG (Glucosam/Chon-Msm1/C/Mang/Bosw [Glucosamine-Chondroitin Tablet] 1 EACH PO SCH ×2 (07:22→20:08)
[2021-06-01] MEDS: MAGNESIUM OXIDE 400 MG TAB PO SCH (07:23)
[2021-06-01] MEDS: FLECAINIDE 50 MG TAB PO SCH ×2 (08:57→20:43)
[2021-06-01] MEDS: DILTIAZEM CD 180 MG CAP.ER.24H PO SCH (08:58)
--- NOTE | 2021-06-01 09:42 | P.PN ---
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 Patient has done very well still seen oncology on regular basis. 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 Patient over a week ago was not feeling well he was seen at his oncologist office blood test was done result came back with positive culture for gram- positive cocci patient ended up coming to the hospital for positive blood culture require IV antibiotic was hospitalized for total of 5 days ended up having many testing at the time including CT of the abdomen and pelvis, echocardiogram and transesophageal echocardiogram also was seen infectious disease cardiology along with oncology final conclusion after the culture was done at the hospital at that time came back negative and his blood culture as an outpatient was blamed to be contamination. Patient was sent home with no IV or oral antibiotic at this time was doing well for the first 2 days. In the last 48 hours patient developed to have fever or chills fatigue tiredness and overall not feeling well his temperature is going as high as 103 sometimes. White blood cell had climb up quite bed from 19-32,000 patient ended up coming to the emergency department at [facility] where was seen and evaluated contacted his oncologist and decided to admit patient for sepsis or fever of unknown origin. Patient was giving 1 g of vancomycin consult oncology and infectious disease culture was done and patient was hospitalized. 05/27: He had an episode of fever and chills last night, his culture so far still negative for the last 24 hours. Liver function test on his blood work originally came back mildly elevated with elevated alkaline phosphatase lipase was normal at this point. Urine was negative. With the current finding patient be going for ultrasound of the liver and because of the sensitivity of the fever of unknown origin patient will be going for MRCP to exclude any possibility of ascending cholangitis in the meanwhile with no other finding patient will stop taking anticoagulation and prepare for LP on Saturday to exclude meningitis if that's negative patient furthermore should be going for bone marrow biopsy. Antibiotic management and treatment was changed patient was supposed to receive 1 g of vancomycin originally but he was giving Rocephin because of ALLERGY to penicillin and could not be on Zosyn we will add levofloxacin at this point infectious disease seen patient by then if decided to do Vanco or change the entire management per ID recommendation. 05/28: He is feeling little better continue to have fatigue and tiredness but no fever or chills. Ultrasound of the gallbladder came back with slight abnormality with stone in the neck of the gallbladder patient be going for HIDA scan tomorrow. Also talk about doing white blood cell tag scan for possible finding any focal area can be claimed to be the site of infection. The meanwhile still scheduled for HIDA scan and lumbar puncture with analysis of the spinal fluid by tomorrow. 05/29: Patient underwent HIDA scan which revealed gallbladder filling, no evidence of acute cholecystitis. Her telemetry abnormal gallbladder ejection fraction of 0%. Correlate for chronic cholecystitis or biliary dyskinesia. Oncology has recommended considering LP and CSF analysis, cytology and flow cytometry. If patient continues to run fever, oncology is planning for bone marrow biopsy. Patient is continued on cefepime and vancomycin. Patient has been afebrile since 05/27 at 1600. 05/30: Patient denies any concerns today. No fever or chills. No nausea vomiting no diarrhea. No abdominal pain. No cough or shortness of breath. He is tolerating a regular diet. Patient is followed by infectious disease and oncology. No plan at this time for LP or bone marrow biopsy. We will add consult in for Dr. Horne regarding abnormal HIDA scan. Dr. Coon is recommending continuing cefepime. Most likely monitor patient overnight and discharge home tomorrow. 05/31: Patient was seen yesterday by Dr. Horne and is scheduled for cholecystectomy tomorrow. Dr. Coon recommends continuing cefepime and discontinuing vancomycin. Patient has been afebrile, heart rate 65, blood pressure 112/58, pulse ox 96% on room air. Patient states that he is feeling well today. Dr. Meza updated patient's over the phone. 06/01: Patient is scheduled for lab [facility] today with Dr. Horne. He has been afebrile, HR 68, BP 131/78, PO 96% on RA. Blood cultures continue to show no growth. He is contnued on Cefepime. Patient denies having any fever, chills, nausea or vomiting, no abdominal pain, no cough. Anticipate probable discharge home tomorrow. REVIEW OF SYSTEMS Constitutional: No fever and no chills and night sweats. Positive weight change. No weakness, fatigue and lethargy. No daytime sleepiness. EENT: No headache. No blurred vision or double vision, no loss of vision. No loss of Hearing, no ringing in the ears, no dizziness. No nasal drainage or congestion. No epistaxis. No sore throat. Lungs: Denies shortness of breath, no cough, no sputum production. No wheezing. Cardiovascular: No chest pain, no lower extremity edema. No palpitations. No paroxysmal nocturnal dyspnea. No orthopnea. No lightheadedness or dizziness. No syncopal episodes. Abdominal: No abdominal pain. No nausea, vomiting. No diarrhea. No constipation. No bloody or tarry stools.. No loss of appetite. Genitourinary: No dysuria, increased frequency, urgency. No urinary retention. Musculoskeletal: No myalgias. No muscle weakness, no gait dysfunction, no frequent falls. No back pain. No neck pain. Integumentary: No wounds, no lesions. No rash or pruritus. No unusual bruising. No change in hair or nails. Neurologic: No aphasia. No facial droop. No change in mentation. No head injury. No headache. No paralysis. No paresthesia. Psychiatric: No depression. No anxiety. No mood swings. Endocrine: No abnormal blood sugars. No weight change. PHYSICAL EXAMINATION Gen: This is a well-developed 75-year-old male. He is resting in the recliner and appears to be comfortable and in no acute distress. HEENT: Head is atraumatic, normocephalic. Pupils equal, round. Sclerae is anict william. No neck rigidity. The left cheek area had scar tissue from his mental lymphoma and radiation site. NECK: Supple. No JVD. No lymphadenopathy. No thyromegaly. LUNGS: Clear to auscultation. No wheezes or rhonchi. No intercostal retractions. HEART: Regular rate and rhythm. No murmur. ABDOMEN: Soft. Bowel sounds are present. No abdominal tenderness, no rebound or rigidity. EXTREMITIES: No pedal edema. No calf tenderness. NEUROLOGICAL: Patient is awake, alert and oriented x3. Cranial nerves 2 through 12 are grossly intact. No motor deficit no abnormal balance and gait. ASSESSMENT AND PLAN 1. Fever of unknown origin. HIDA scan as above, consult Dr. Horne and scheduled for cholecystectomy today. Patient is followed by infectious disease and continued on cefepime. 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 OP workup. 3 paroxysmal atrial fibrillation. Continue on eliquis 5 mg twice daily (on hold since 05/30), Cardizem CD 180 mg daily, flecainide 100 mg twice daily. 4 thoracic aneurysm: Size is still less than 5 cm been watch carefully. 5 reactive airway/asthma: Has been doing well lately no flareup still seen pulmonary will have Ventolin inhaler on as-needed basis. 6 BPH: With no sign of infection or prostatitis no sign of obstruction has been doing well so far. 7 incidental cholelithiasis: Patient is not having any increase abdominal pain nausea vomiting to claim his symptoms on the gallbladder at this point. 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 9 GI prophylaxis: Patient will be on pantoprazole. CODE STATUS: Full code. DICHARGE PLAN Home without home care on Saturday Impression and plan of care have been directed as dictated by the signing physician. Gianna Silver nurse practitioner acting as scribe for signing physician. Objective - Vital Signs Vital signs: Vital Signs Temp 98.2 F 06/01/21 05:10 Pulse 68 06/01/21 05:10 Resp 20 06/01/21 05:10 BP 131/73 06/01/21 05:10 Pulse Ox 96 06/01/21 05:10 Intake & Output 05/31/21 06/01/21 06/01/21 18:59 06:59 18:59 Intake Total 200 100 Balance 200 100 Intake: Intake, IV Titration 200 100 Amount Cefepime 2 gm In Sodium 200 100 Chloride 0.9% 100 ml @ 25 mls/hr IVPB Q8H [facility] Rx#: [id number] Other: Voiding Method Toilet Urinal - Labs CBC & Chem 7: 05/29/21 05:51 06/01/21 06:12 Labs: Abnormal Lab Results - Last 24 Hours (Table) 05/31/21 Range/Units 06:41 Anion Gap 8.80 L (10.00-18.00) mmol/L Calcium 8.0 L (8.7-10.3) mg/dL AST 36 H (14-35) U/L ALT 62 H (10-49) U/L Alkaline Phosphatase 213 H (41-126) U/L C-Reactive Protein 4.20 H (0.00-0.80) mg/dL Total Protein 4.5 L (6.2-8.2) g/dL Albumin 2.5 L (3.8-4.9) g/dL Albumin/Globulin Ratio 1.25 L (1.60-3.17) g/dL Microbiology - Last 24 Hours (Table) 05/27/21 18:49 Blood Culture - Preliminary Blood No Growth after 96 hours 05/26/21 10:12 Blood Culture - Preliminary Blood No Growth after 120 hours 05/26/21 10:01 Blood Culture - Preliminary Blood No Growth after 120 hours
[2021-06-01 13:12] VITALS: BMI 25.7
[2021-06-01] MEDS ORDERED: IV FLUID CONTINUATION 1,000 ML IV ONE (14:19)
--- NOTE | 2021-06-01 14:24 | CDI ---
Documentation Clarification Form Date: 06/01/2021 01:46:55 PM From: Jessica Hickman RN, CCDS Admit Date: 05/27/2021 10:11:00 AM Patient Name: Sreedhar Jackson Visit Number: [id number] Discharge Date: ATTENTION: The Clinical Documentation Specialists (CDI) and [facility] Coding Staff appreciate your assistance in clarifying documentation. Please respond to the clarification below the line at the bottom and electronically sign. The CDI & [facility] Coding staff will review the response and follow-up if needed. Please note: Queries are made part of the Legal Health Record. If you have any questions, please contact the author of this message via ITS. Dr. Hemanth Meza The patient presented with the following clinical indicators, fever, chills, not feeling Sepsis in noted in the H/&P on 05/26/21 as chief complaint but not in assessment and subsequent progress notes. He continue on antibiotic treatment. Additional clarification regarding the etiology/cause of the clinical indicators is requested. 05/31 GI: Chronic Cholecystitis admitted for recurrent sepsis. Source of fevers and leukocytosis has not been identified with certainty. Plan cholecystectomy on . 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 He returned 48 hours as he had fever, chill, fatigue, tiredness not feeling well with temperature as high as 103. 4/1 WBC: 32.8, Neutrophils 31.3 /2 C - reactive protein 23.4 / Lactic acid: 0.9 05/26 Blood cultures: No growth after 244 hours 05/27 (00:30) temp 101.9 (00:46) 103 4/ Vital signs: 134/68 111 20 103.4, 95 % RA 112/62 86 20 98.9 96 % RA /2 Tiny intraluminal gallstones within gallbladder redemonstrated. No definitive CBD stone. 05/27 US: Mildly hydropic gallbladder Treatment: Vancomycin 1 GM IV (PTD) 05/27-05/29 Rocephin 1 GM IVPB 05/26-2 Cefepime 2 GM IVPB 8Q8 HRS 05/27-4/7 .9NS 500 MLS IV Then @ 75 MLS HR 05/26 Tylenol 1,000 MG IVPB Q6 HRS PRN 05/26-05/27 06/28 ID Consult: Fever, HIDA scan is abnormal and concern for chronic cholecystitis and possible source of his fever. IV Bolus: In your professional opinion, please clarify if these findings signify one of the following conditions: [ xx ] Sepsis POA (specify cause if known) [ ] Sepsis ruled out [ ] Other, please specify [ ] Unable to determine SIRS Criteria: 2 or more of the following may indicate SIRS -Temperature < 96.8F (36C) or > 101.0F (38.3C) -Heart Rate > 90 bpm -Respiratory Rate > 20 breaths/min or PaCO2 < 32 mmHg -White Blood Cell Count > 12,000 or < 4,000 cells/mm3 or > 10% bands (Template Last Reviewed: March 2020) MTDD
--- NOTE | 2021-06-01 14:27 | CDI ---
Documentation Clarification Form Date: 06/01/2021 01:46:55 PM From: Jessica Hickman RN, CCDS Admit Date: 05/27/2021 10:11:00 AM Patient Name: Sreedhar Jackson Visit Number: [id number] Discharge Date: ATTENTION: The Clinical Documentation Specialists (CDI) and [facility] Coding Staff appreciate your assistance in clarifying documentation. Please respond to the clarification below the line at the bottom and electronically sign. The CDI & [facility] Coding staff will review the response and follow-up if needed. Please note: Queries are made part of the Legal Health Record. If you have any questions, please contact the author of this message via ITS. Dr. Hemanth Meza The patient presented with the following clinical indicators, fever, chills, not feeling Sepsis in noted in the H/&P on 05/26/21 as chief complaint but not in assessment and subsequent progress notes. He continue on antibiotic treatment. Additional clarification regarding the etiology/cause of the clinical indicators is requested. 05/31 GI: Chronic Cholecystitis admitted for recurrent sepsis. Source of fevers and leukocytosis has not been identified with certainty. Plan cholecystectomy on . 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 He returned 48 hours as he had fever, chill, fatigue, tiredness not feeling well with temperature as high as 103. 4/1 WBC:32.8, Neutrophils 31.3 /2 c-Reactive Protein 23.4 / Lactic acid: 0.9 05/26 Blood cultures: No growth after 244 hours 05/27 (00:30) temp 101.9 (00:46) 103 4/ Vital signs: 134/68 111 20 103.4, 95 % RA 112/62 86 20 98.9 96 % RA /2 Tiny intraluminal gallstones within gallbladder redemonstrated. No definitive CBD stone. 05/27 US: Mildly hydropic gallbladder Treatment: Vancomycin 1 GM IV (PTD) 05/27-05/29 Rocephin 1 GM IVPB 05/26-2 Cefepime 2 GM IVPB 8Q8 HRS 05/27-4/7 .9NS 500 MLS IV Then @ 75 MLS HR 05/26 Tylenol 1,000 MG IVPB Q6 HRS PRN 05/26-05/27 06/28 ID Consult: Fever, HIDA scan is abnormal and concern for chronic cholecystitis and possible source of his fever. IV Bolus: In your professional opinion, please clarify if these findings signify one of the following conditions: [ ] Sepsis POA (specify cause if known) [ ] Sepsis ruled out [ ] Other, please specify [ ] Unable to determine SIRS Criteria: 2 or more of the following may indicate SIRS -Temperature < 96.8F (36C) or > 101.0F (38.3C) -Heart Rate > 90 bpm -Respiratory Rate > 20 breaths/min or PaCO2 < 32 mmHg -White Blood Cell Count > 12,000 or < 4,000 cells/mm3 or > 10% bands (Template Last Reviewed: March 2020) MTDD
[2021-06-01] MEDS ORDERED: HEPARIN SODIUM,PORCINE 5,000 UNIT/ML 1 ML VIAL SQ ONE (14:59)
[2021-06-01] MEDS ORDERED: LIDOCAINE 1% INJ 10MG/ML (20 ML MDV) ONE (15:19)
[2021-06-01] MEDS ORDERED: NEOSTIGMINE 1 MG/ML 10 ML VIAL ONE (15:19)
[2021-06-01] MEDS ORDERED: PROPOFOL 10 MG/ML 20 ML VIAL IV ONE (15:19)
[2021-06-01] MEDS ORDERED: fentaNYL (PF) 50 MCG/ML 2 ML AMP ONE (15:19)
[2021-06-01] MEDS ORDERED: SUCCINYLCHOLINE CHLORIDE 100 MG/5 ML SYR IV ONE (15:19)
[2021-06-01] MEDS ORDERED: GLYCOPYRROLATE 0.2 MG/ML 2 ML VIAL ONE (15:19)
[2021-06-01] MEDS ORDERED: ROCURONIUM 10 MG/ML (5 ML VIAL) IV ONE (15:19)
[2021-06-01] MEDS ORDERED: MIDAZOLAM 2 MG/2 ML VIAL ONE (15:19)
[2021-06-01] MEDS ORDERED: HYDROmorphone (PF) 1 MG/ML ONE (15:19)
[2021-06-01] MEDS ORDERED: BUPIVACAIN-EPI 0.25%-1:200,000 30 ML VIAL SQ ONE (15:45)
[2021-06-01] MEDS ORDERED: LACTATED RINGERS 1,000 ML IV ONE (16:30)
[2021-06-01] MEDS ORDERED: HYDROmorphone 1 MG/ML 1 ML SYRINGE IVP PRN (16:50)
--- NOTE | 2021-06-01 16:51 | P.OP ---
Date of Procedure: 06/01/21 Procedure(s) Performed: PREOPERATIVE DIAGNOSIS: Chronic cholecystitis POSTOPERATIVE DIAGNOSIS: Same PROCEDURE: Laparoscopic cholecystectomy SURGEON: Coleen EBL: 25 mL ANESTHESIA: Gen. COMPLICATIONS: None OPERATIVE PROCEDURE: The patient was brought and placed on the operating room table in the supine position. The patient was placed under general anesthesia at that time. The abdomen was prepped and draped in the usual sterile fashion. A small vertical infraumbilical incision was made. The fascia was grasped with the Angel forceps. The fascia was retracted anteriorly. The Veress needle was advanced into the peritoneal cavity. The saline drop test was normal. Insufflation took place up to 15 mmHg. A 5 mm optical trocar was advanced and the peritoneal cavity. 2 additional 5 mm trochars were placed in the right upper quadrant under direct visualization. A 12 mm trocar was advanced into the epigastric incision site. The patient's gallbladder had some degree of inflammation and was noted as we worked on the gallbladder to be significantly intrahepatic. The gallbladder was retracted superiorly and laterally. The peritoneum overlying the infundibulum was bluntly dissected. The patient's cystic duct was visualized. The junction between the cystic duct common and hepatic duct was identified. The critical view of safety was achieved after blunt dissection. The cystic duct was then divided after placement of 3 12 mm clips on the patient's side and one on the specimen side. The cystic artery was identified and clipped as well. A small vessel was seen along the gallbladder fossa and clipped as well. This small vessel was putting off a few branches in the gallbladder fossa which were each individually clipped. The gallbladder was then removed from the liver bed using electrocautery. The gallbladder was then removed from the epigastric trocar site with an Endo Catch bag. The gallbladder fossa was irrigated with saline. There was no evidence of any bleeding or biliary drainage seen. The fascia at the 12 millimeter site was closed using a Jameson 0 Vicryl stitch. The trochars were then removed. The skin at all 4 sites was closed using a 4-0 Monocryl stitch. Skin glue was utilized on the incision sites. At the end of this procedure the sponge and needle counts were correct. DISPOSITION: Stable to the recovery room
[2021-06-01] MEDS: NON FORMULARY DRUG (Turmeric Root Extract [Turmeric] 500 MG Capsule) PO SCH (17:08)
[2021-06-01] MEDS: LACTATED RINGERS 1,000 ML IV SCH (17:08)
[2021-06-01] MEDS: HYDROcodone/APAP 5-325MG 1 EACH TAB PO PRN (19:45)
--- NOTE | 2021-06-01 23:37 | P.PN ---
Subjective Progress Note Date: 05/31/21 Principal diagnosis: Fever Patient is a 75-year-old male with a past medical history significant for mantle cell lymphoma, in this patient recently did have a recurrence treated with local radiation, presented to hospital with a fever. On today's evaluation that is 05/31/2021, the patient continues to be afebrile , the patient is breathing comfortably on room air, the patient denies any chest pain shortness of cough , the patient denies nausea no vomiting no abdominal pain or diarrhea Objective - Vital Signs Vital signs: Vital Signs Temp 97.6 F 05/31/21 12:41 Pulse 59 L 05/31/21 12:41 Resp 16 05/31/21 12:41 BP 114/68 05/31/21 12:41 Pulse Ox 96 05/31/21 12:41 Intake & Output 05/30/21 05/31/21 05/31/21 18:59 06:59 18:59 Intake Total 960 Balance 960 Intake: Intake, IV Titration 600 Amount Cefepime 2 gm In Sodium 100 Chloride 0.9% 100 ml @ 25 mls/hr IVPB Q8H [facility] Rx#: [id number] Vancomycin 1,500 mg In 500 Sodium Chloride 0.9% 250 ml @ 125 mls/hr IVPB Q12H [facility] Rx#:[id number] Oral 360 Other: Voiding Method Toilet Urinal # Voids 1 - Exam GENERAL DESCRIPTION: An elderly male lying in bed in no distress RESPIRATORY SYSTEM: Unlabored breathing , decreased breath sounds at bases HEART: S1 S2 regular rate and rhythm , ABDOMEN: Soft , no tenderness EXTREMITIES: No edema feet - Labs CBC & Chem 7: 05/29/21 05:51 06/01/21 06:12 Labs: Abnormal Lab Results - Last 24 Hours (Table) 05/31/21 Range/Units 06:41 Anion Gap 8.80 L (10.00-18.00) mmol/L Calcium 8.0 L (8.7-10.3) mg/dL AST 36 H (14-35) U/L ALT 62 H (10-49) U/L Alkaline Phosphatase 213 H (41-126) U/L C-Reactive Protein 4.20 H (0.00-0.80) mg/dL Total Protein 4.5 L (6.2-8.2) g/dL Albumin 2.5 L (3.8-4.9) g/dL Albumin/Globulin Ratio 1.25 L (1.60-3.17) g/dL Microbiology - Last 24 Hours (Table) 05/26/21 10:12 Blood Culture - Preliminary Blood No Growth after 120 hours 05/26/21 10:01 Blood Culture - Preliminary Blood No Growth after 120 hours 05/27/21 18:49 Blood Culture - Preliminary Blood No Growth after 72 hours Assessment and Plan (1) Febrile illness, acute Current Visit: Yes Status: Acute Priority: High Code(s): R50.9 - FEVER, UNSPECIFIED SNOMED Code(s): 397405047 Plan: 1patient with fever in this patient who do have a history of mantle cell lymphoma initial diagnosis in 2012 with a recent recurrences locally and status post radiation therapy patient did have a recent admission to the hospital with a positive blood culture with micrococcus thought to be contaminant as repeat cultures were negative patient did have extensive work-up including VIC CT abdominal pelvis is also negative patient did have a CT of the chest this admission that was negative for acute disease currently do not have any localizing signs symptoms of infection with an episode of vomiting and gallstone questionable gallbladder disease. 2-patien HIDA scan is abnormal and concern for chronic cholecystitis and possible source of his fever and will benefit from general surgery evaluation 3-patient is currently being treated with the cefepime to continue on waiting for cholecystectomy to be completed Time with Patient: Less than 30
--- NOTE | 2021-06-01 23:38 | P.PN ---
Subjective Progress Note Date: 06/01/21 Principal diagnosis: Fever Patient is a 75-year-old male with a past medical history significant for mantle cell lymphoma, in this patient recently did have a recurrence treated with local radiation, presented to hospital with a fever. On today's evaluation that is 06/01/2021, the patient denies any fever or any chills, the patient is breathing comfortably on room air, the patient denies any chest pain shortness of cough , the patient denies nausea no vomiting no ab dominal pain or diarrhea, feeling better and waiting for his laparoscopic cholecystectomy this afternoon Objective - Vital Signs Vital signs: Vital Signs Temp 98.6 F 06/01/21 13:09 Pulse 86 06/01/21 13:09 Resp 16 06/01/21 13:09 BP 113/79 06/01/21 13:09 Pulse Ox 97 06/01/21 13:09 Intake & Output 05/31/21 06/01/21 06/01/21 18:59 06:59 18:59 Intake Total 200 100 Balance 200 100 Weight 88.451 kg Intake: Intake, IV Titration 200 100 Amount Cefepime 2 gm In Sodium 200 100 Chloride 0.9% 100 ml @ 25 mls/hr IVPB Q8H [facility] Rx#: [id number] Other: Voiding Method Toilet Urinal # Bowel Movements 1 - Exam GENERAL DESCRIPTION: An elderly male lying in bed in no distress RESPIRATORY SYSTEM: Unlabored breathing , decreased breath sounds at bases HEART: S1 S2 regular rate and rhythm , ABDOMEN: Soft , no tenderness EXTREMITIES: No edema feet - Labs CBC & Chem 7: 05/29/21 05:51 06/01/21 06:12 Labs: Microbiology - Last 24 Hours (Table) 05/26/21 10:12 Blood Culture - Final Blood No Growth after 144 hours 05/26/21 10:01 Blood Culture - Final Blood No Growth after 144 hours 05/27/21 18:49 Blood Culture - Preliminary Blood No Growth after 96 hours Assessment and Plan (1) Febrile illness, acute Current Visit: Yes Status: Acute Priority: High Code(s): R50.9 - FEVER, UNSPECIFIED SNOMED Code(s): 869306382 Plan: 1patient with fever in this patient who do have a history of mantle cell lymphoma initial diagnosis in 2012 with a recent recurrences locally and status post radiation therapy patient did have a recent admission to the hospital with a positive blood culture with micrococcus thought to be contaminant as repeat cultures were negative patient did have extensive work-up including VIC CT abdominal pelvis is also negative patient did have a CT of the chest this admission that was negative for acute disease currently do not have any localizing signs symptoms of infection with an episode of vomiting and gallstone questionable gallbladder disease. 2-patien HIDA scan is abnormal and concern for chronic cholecystitis and possible source of his fever and is scheduled for laparoscopic cholecystectomy this afternoon 3-patient to continue with the cefepime, once stable for discharge from surgical standpoint, plan is to finish therapy with oral Ceftin 7 days discussed with nurse practitioner for admitting team working on discharge Time with Patient: Less than 30
[2021-06-02] MEDS: HYDROcodone/APAP 5-325MG 1 EACH TAB PO PRN ×2 (00:01→07:25)
[2021-06-02] MEDS: CEFEPIME 2 GM in SODIUM CHLORIDE 0.9% 100 ML IVPB SCH ×2 (03:09→11:51)
[2021-06-02] MEDS: LACTATED RINGERS 1,000 ML IV SCH (07:20)
[2021-06-02] MEDS: FOLIC ACID 1 MG TAB PO SCH (07:25)
[2021-06-02] MEDS: MAGNESIUM OXIDE 400 MG TAB PO SCH (07:25)
[2021-06-02] MEDS: PANTOPRAZOLE 40 MG TABLET PO SCH (07:26)
[2021-06-02] MEDS: CHOLECALCIFEROL 25 MCG (1000 IU) TABLET PO SCH (07:26)
[2021-06-02] MEDS: FERROUS SULFATE 325 MG TAB PO SCH (07:27)
[2021-06-02] MEDS: DILTIAZEM CD 180 MG CAP.ER.24H PO SCH (07:27)
[2021-06-02] MEDS: FLECAINIDE 50 MG TAB PO SCH (07:27)
[2021-06-02] MEDS: NON FORMULARY DRUG (Glucosam/Chon-Msm1/C/Mang/Bosw [Glucosamine-Chondroitin Tablet] 1 EACH PO SCH (07:28)
--- NOTE | 2021-06-02 08:45 | P.DS ---
Providers Date of admission: 05/27/21 10:11 Expected date of discharge: 06/02/21 Attending physician: Hemanth Meza Consults: 05/26/21 13:51 Consult Physician Urgent Consulting Provider: Fabian Guzman Consult Reason/Comments: History of lymphoma Do you want consulting provider notified?: Yes 05/26/21 15:22 Consult Physician Routine Consulting Provider: Brandy Coon Consult Reason/Comments: recurrent fevers Do you want consulting provider notified?: Yes 05/30/21 08:55 Consult Physician Routine Consulting Provider: Primitivo Horne Consult Reason/Comments: cholecystitis, abnormal HIDA Do you want consulting provider notified?: Yes Primary care physician: Hemanth Meza [facility] Course: HISTORY OF PRESENT ILLNESS 74-year-old male one of my office patient of seen for long time who had history of mantle cell lymphoma diagnosed in 2012 involving the abdominal cavity ended up having chemotherapy and management for it for long time. Patient has done very well still seen oncology on regular basis. Had recurrent mantle cell lymphoma of the left side of his face was seen in [facility] after the biopsies done she had 16 session of radiation completed and done well. Patient over a week ago was not feeling well he was seen at his oncologist office blood test was done result came back with positive culture for gram- positive cocci patient ended up coming to the hospital for positive blood culture require IV antibiotic was hospitalized for total of 5 days ended up having many testing at the time including CT of the abdomen and pelvis, echocardiogram and transesophageal echocardiogram also was seen infectious disease cardiology along with oncology final conclusion after the culture was done at the hospital at that time came back negative and his blood culture as an outpatient was blamed to be contamination. Patient was sent home with no IV or oral antibiotic at this time was doing well for the first 2 days. In the last 48 hours patient developed to have fever or chills fatigue tiredness and overall not feeling well his temperature is going as high as 103 sometimes. White blood cell had climb up quite bed from 19-32,000 patient ended up coming to the emergency department at [facility] where was seen and evaluated contacted his oncologist and decided to admit patient for sepsis or fever of unknown origin. Patient was giving 1 g of vancomycin consult oncology and infectious disease culture was done and patient was hospitalized. 05/27: He had an episode of fever and chills last night, his culture so far still negative for the last 24 hours. Liver function test on his blood work originally came back mildly elevated with elevated alkaline phosphatase lipase was normal at this point. Urine was negative. With the current finding patient be going for ultrasound of the liver and because of the sensitivity of the fever of unknown origin patient will be going for MRCP to exclude any possibility of ascending cholangitis in the meanwhile with no other finding patient will stop taking anticoagulation and prepare for LP on Saturday to exclude meningitis if that's negative patient furthermore should be going for bone marrow biopsy. Antibiotic management and treatment was changed patient was supposed to receive 1 g of vancomycin originally but he was giving Rocephin because of ALLERGY to penicillin and could not be on Zosyn we will add levofloxacin at this point infectious disease seen patient by then if decided to do Vanco or change the entire management per ID recommendation. 05/28: He is feeling little better continue to have fatigue and tiredness but no fever or chills. Ultrasound of the gallbladder came back with slight abnormality with stone in the neck of the gallbladder patient be going for HIDA scan tomorrow. Also talk about doing white blood cell tag scan for possible finding any focal area can be claimed to be the site of infection. The meanwhile still scheduled for HIDA scan and lumbar puncture with analysis of the spinal fluid by tomorrow. 05/29: Patient underwent HIDA scan which revealed gallbladder filling, no evidence of acute cholecystitis. Her telemetry abnormal gallbladder ejection fraction of 0%. Correlate for chronic cholecystitis or biliary dyskinesia. Oncology has recommended considering LP and CSF analysis, cytology and flow cytometry. If patient continues to run fever, oncology is planning for bone marrow biopsy. Patient is continued on cefepime and vancomycin. Patient has been afebrile since 05/27 at 1600. 05/30: Patient denies any concerns today. No fever or chills. No nausea vomiting no diarrhea. No abdominal pain. No cough or shortness of breath. He is tolerating a regular diet. Patient is followed by infectious disease and oncology. No plan at this time for LP or bone marrow biopsy. We will add consult in for Dr. Horne regarding abnormal HIDA scan. Dr. Coon is recommending continuing cefepime. Most likely monitor patient overnight and dis charge home tomorrow. 05/31: Patient was seen yesterday by Dr. Boutt and is scheduled for cholecystectomy tomorrow. Dr. Coon recommends continuing cefepime and discontinuing vancomycin. Patient has been afebrile, heart rate 65, blood pressure 112/58, pulse ox 96% on room air. Patient states that he is feeling well today. Dr. Meza updated patient's over the phone. 06/01: Patient is scheduled for lab savana today with Dr. Horne. He has been afebrile, HR 68, BP 131/78, PO 96% on RA. Blood cultures continue to show no growth. He is contnued on Cefepime. Patient denies having any fever, chills, nausea or vomiting, no abdominal pain, no cough. Anticipate probable discharge home tomorrow. 06/02: Yesterday, patient underwent laparoscopic cholecystectomy with Dr. Horne. Patient remains afebrile, heart rate in the 50s and 60s, blood pressure 129/74, pulse ox 97% on room air. WBC 10.8, hemoglobin 12.3, platelet count 446. Patient denies having any abdominal pain, no nausea or vomiting, he is tolerating a low-fat diet. Dr. Coon has recommended a course of Ceftin. Patient will be discharged home today in stable condition. DISCHARGE DIAGNOSES 1. Fever of unknown origin 2 mental cell lymphoma 3 paroxysmal atrial fibrillation 4 thoracic aneurysm 5 reactive airway/mild intermittent asthma 6 BPH 7 incidental cholelithiasis is post laparoscopic cholecystectomy 8 severe osteoarthritis with degenerative joint disease post right total knee arthroplasty. DICHARGE PLAN Home without home care on Saturday Impression and plan of care have been directed as dictated by the signing physician. Gianna Silver nurse practitioner acting as scribe for signing physician. Patient Condition at Discharge: Good Plan - Discharge Summary Discharge Rx Participant: No New Discharge Prescriptions: New Docusate [Colace] 100 mg PO BID #30 capsule HYDROcodone/APAP 5-325MG [[place] 5-325] 1 tab PO Q6HR PRN 3 Days #12 tab PRN Reason: Pain Cefuroxime Axetil [Ceftin] 500 mg PO BID 7 Days #14 tab Folic Acid 1 mg PO DAILY tab Continue Meloxicam 7.5 mg PO DAILY Gentle Iron 28 1 cap PO Q48H Magnesium Gluconate 100mg 100 mg PO DAILY Turmeric Root Extract [Turmeric] 500 mg PO Q48H Apixaban [Eliquis] 5 mg PO BID #60 tab Diltiazem Cd [Cardizem CD] 180 mg PO DAILY Flecainide Acetate [Tambocor] 100 mg PO BID Cholecalciferol [Vitamin D3 (25 Mcg = 1000 Iu)] 25 mcg PO DAILY Glucosam/[place]-Msm1/C/Julio/Bosw [Glucosamine-Chondroitin Tablet] 1 tab PO BID Discharge Medication List Meloxicam 7.5 mg PO DAILY 01/12/14 [History] Gentle Iron 28 1 cap PO Q48H 03/03/19 [History] Magnesium Gluconate 100mg 100 mg PO DAILY 03/03/19 [History] Turmeric Root Extract [Turmeric] 500 mg PO Q48H 03/03/19 [History] Apixaban [Eliquis] 5 mg PO BID #60 tab 03/05/19 [Rx] Diltiazem Cd [Cardizem CD] 180 mg PO DAILY 10/30/19 [History] Flecainide Acetate [Tambocor] 100 mg PO BID 12/17/19 [History] Cholecalciferol [Vitamin D3 (25 Mcg = 1000 Iu)] 25 mcg PO DAILY 08/31/20 [History] Glucosam/Amador-Msm1/C/Julio/Bosw [Glucosamine-Chondroitin Tablet] 1 tab PO BID 05/15/21 [History] Cefuroxime Axetil [Ceftin] 500 mg PO BID 7 Days #14 tab 06/01/21 [Rx] Docusate [Colace] 100 mg PO BID #30 capsule 06/02/21 [Rx] Folic Acid 1 mg PO DAILY tab 06/02/21 [Rx] HYDROcodone/APAP 5-325MG [[place] 5-325] 1 tab PO Q6HR PRN 3 Days #12 tab 06/02/21 [Rx] Follow up Appointment(s)/Referral(s): Primitivo Horne MD [Medical Doctor] - 06/08/21 10:30 am Hemanth Meza MD [Primary Care Provider] - 1 Week (patient requests to schedule own follow-up, rounded and gave patient specific instructions ) Chris Gan MD [STAFF PHYSICIAN] - 1 Week Patient Instructions/Handouts: *Surgery [facility] - Laparoscopic Cholecystectomy Discharge Instructions, Cefuroxime (By mouth), Hydrocodone/Acetaminophen (By mouth), Laxative, Stool Softeners (By mouth), Low Fat Diet (DC) Activity/Diet/Wound Care/Special Instructions: RESUME ROC WRIGHT. CHECK TEMPERATURE TWO TIMES DAILY AND TAKE LOG TO YOUR APPOINTMENT WITH DR. MARQUIS Mendez driving while taking [place] No lifting over 10 pounds You may shower. No soaking or tub baths for 2 weeks Very light activity until you are reevaluated at your follow up appointment with your surgeon Discharge Disposition: HOME SELF-CARE
[2021-06-02 10:26] LABS: HCT 39.9 % (39.6-50.0); HGB 12.3 g/dL (13.0-17.0); MCH 30.7 pg (27.0-32.0); MCHC 30.8 g/dL (32.0-37.0); MCV 99.5 fL (80.0-97.0); Mean Platelet Volume 10.5 fL (9.5-12.2); NRBC Per 100 WBC 0 /100 WBCS (0.0-0.0); Platelet Count 446 X 10*3/uL (140-440); RBC 4.01 X 10*6/uL (4.40-5.60); WBC 10.98 X 10*3/uL (4.50-10.00)
[2021-06-02 11:01] LABS: African American GFR (CKD) 97.9 (60.0-200.0); Albumin 3.2 g/dL (3.8-4.9); Albumin/Globulin Ratio 1.28 (1.60-3.17); Anion Gap 13.1 mmol/L (10.00-18.00); BUN/Creat Ratio 13.11 Ratio (12.00-20.00); Blood Urea Nitrogen 11.8 mg/dL (9.0-27.0); Calcium 8.8 mg/dL (8.7-10.3); Carbon Dioxide 25.9 mmol/L (20.0-27.5); Globulin 2.5 g/dL (1.6-3.3); Non-African American GFR(CKD) 84.4 (60.0-200.0); Potassium 4.3 mmol/L (3.5-5.5); Total Bilirubin 0.4 mg/dL (0.30-1.20); Total Protein 5.7 g/dL (6.2-8.2)
--- NOTE | 2021-06-02 11:14 | P.PN ---
Subjective Progress Note Date: 06/02/21 CHIEF COMPLAINT: Chronic cholecystitis HISTORY OF PRESENT ILLNESS: Patient postop day #1 status post laparoscopic cholecystectomy. He reports that his pain is controlled. He has been up and ambulating. Denies any nausea vomiting. Tolerated diet. No flatus or bowel movement yet. He does reports some pressure up into the left shoulder which is likely gas pressure. Afebrile. WBC is down from 15.06-10.98 hemoglobin 12.3 LFTs trended down AST 27 ALT 47 alk phos 212 PHYSICAL EXAM: VITAL SIGNS: Reviewed. GENERAL: Well-developed in no acute distress. HEENT: No sclera icterus. Extraocular movements grossly intact. Moist buccal mucosa. Head is atraumatic, normocephalic. ABDOMEN: Soft. Nondistended. Minimal tenderness at incision sites. Incision sites clean dry and intact. NEUROLOGIC: Alert and oriented. Cranial nerves II through XII grossly intact. ASSESSMENT: 1. Chronic cholecystitis status post Laparoscopic cholecystectomy PLAN: -Patient can be discharge from surgical standpoint -Recommend to continue a low-fat diet -Patient follow-up with Dr. 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 Signing provider agrees with the documented findings, assessment, and plan of care. 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 Based on total visit time, I have performed more than 50% of the visit. As above: Patient doing well today. No nausea or vomiting. Labs noted. Incisions clean and dry. May discharge. Follow-up one week. Objective - Vital Signs Vital signs: Vital Signs Temp 97.6 F 06/02/21 08:20 Pulse 53 L 06/02/21 08:20 Resp 18 06/02/21 08:30 BP 129/74 06/02/21 08:20 Pulse Ox 97 06/02/21 08:20 Intake & Output 06/01/21 06/02/21 06/02/21 18:59 06:59 18:59 Intake Total 850 200 600 Output Total 325 Balance 525 200 600 Weight 88.451 kg Intake: IV 850 Oral 200 600 Output: Urine 300 Estimated Blood Loss 25 Other: Voiding Method Toilet Urinal # Voids 3 1 # Bowel Movements 1 - Labs CBC & Chem 7: 06/02/21 06:26 06/02/21 06:26 Labs: Abnormal Lab Results - Last 24 Hours (Table) 06/02/21 06/02/21 Range/Units 06:26 06:26 WBC 10.98 H (4.50-10.00) X 10*3/uL RBC 4.01 L (4.40-5.60) X 10*6/uL Hgb 12.3 L (13.0-17.0) g/dL MCV 99.5 H (80.0-97.0) fL MCHC 30.8 L (32.0-37.0) g/dL Plt Count 446 H (140-440) X 10*3/uL Glucose 121 H (70-110) mg/dL Alkaline Phosphatase 212 H (41-126) U/L Total Protein 5.7 L (6.2-8.2) g/dL Albumin 3.2 L (3.8-4.9) g/dL Albumin/Globulin Ratio 1.28 L (1.60-3.17) g/dL Microbiology - Last 24 Hours (Table) 05/27/21 18:49 Blood Culture - Preliminary Blood No Growth after 120 hours 05/26/21 10:12 Blood Culture - Final Blood No Growth after 144 hours 05/26/21 10:01 Blood Culture - Final Blood No Growth after 144 hours
[2021-06-02 13:19] VITALS: BP 158/77; PULSE 68; RESP 16; TEMP 98.1
== END 2021-06-02 15:29 | disposition home or self-care (01) | DRG 854 ==
LOC: EC 09:24 → 5NMEDONC 13:51 → OBSVTOIN 05-27 10:11
PROVIDERS: ADMIT Internal Medicine Geriatric Medicine; ATTEND Internal Medicine Geriatric Medicine
PROC: BF532Z0 Other Imaging of Gallbladder and Bile Ducts using Fluorescing Agent, Intraoperative (ICD-10-PCS; 2021-06-01)
PROC: 0FT44ZZ Resection of Gallbladder, Percutaneous Endoscopic Approach (ICD-10-PCS; principal; 2021-06-01 14:55)
DX: A41.9 Sepsis, unspecified organism (principal); K80.10 Calculus of gallbladder with chronic cholecystitis without obstruction; C83.10 Mantle cell lymphoma, unspecified site; K82.1 Hydrops of gallbladder; Z20.822 Contact with and (suspected) exposure to COVID-19; D70.9 Neutropenia, unspecified; M17.11 Unilateral primary osteoarthritis, right knee; E61.1 Iron deficiency; K82.8 Other specified diseases of gallbladder; I48.0 Paroxysmal atrial fibrillation; K40.20 Bilateral inguinal hernia, without obstruction or gangrene, not specified as recurrent; I71.2 Thoracic aortic aneurysm, without rupture; J45.20 Mild intermittent asthma, uncomplicated; N40.0 Benign prostatic hyperplasia without lower urinary tract symptoms; Z63.4 Disappearance and death of family member; Z79.01 Long term (current) use of anticoagulants; Z79.1 Long term (current) use of non-steroidal anti-inflammatories (NSAID); Z79.899 Other long term (current) drug therapy; Z80.6 Family history of leukemia; Z80.7 Family history of other malignant neoplasms of lymphoid, hematopoietic and related tissues; Z85.828 Personal history of other malignant neoplasm of skin; Z92.21 Personal history of antineoplastic chemotherapy; Z88.0 Allergy status to penicillin; Z92.3 Personal history of irradiation; Z96.651 Presence of right artificial knee joint; Z88.8 Allergy status to other drugs, medicaments and biological substances; Z87.19 Personal history of other diseases of the digestive system; Z28.310 Unvaccinated for COVID-19
CPT/HCPCS: 36415; 71046; 71260; 74181; 76705; 78227; 80053; 80202; 81003; 82565; 83605; 83690; 84145; 85025; 85027; 85610; 85730; 86140; 87040; 87636; 88304; 93005; 96361; 96365; 99285

== ENCOUNTER 2021-06-11 17:24 | Emergency (ER) | payer MEDICARE ==
[2021-06-11 17:34] VITALS: TEMP 98.5
[2021-06-11] MEDS ORDERED: SODIUM CHLORIDE 0.9% 500 ML 500 ML IV STA (18:47)
--- NOTE | 2021-06-11 18:51 | ED ---
General Adult HPI - General Chief complaint: Weakness Stated complaint: SOB/Weakness Time Seen by Provider: 06/11/21 18:40 Source: patient, family, RN notes reviewed, old records reviewed Mode of arrival: ambulatory Limitations: no limitations - History of Present Illness Initial comments: Pleasant 75-year-old male, alert and oriented 4 presents with complaints of generalized weakness and fatigue worsening over the past 4 days. Patient states that he has been in and out of the hospital, just discharged June 02 after cholecystectomy. States he has been having intermittent fevers and chills prior to admission, reports no fever since Saturday. He denies any nausea, vomiting or diarrhea. No chest pain or difficulty in breathing. No sick contacts. He states that he is eating and drinking well. 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 -: days(s) (4) Severity scale (1-10): 0 Quality: constant Consistency: constant Associated Symptoms: malaise - Related Data Home Medications Medication Instructions Recorded Confirmed Meloxicam 7.5 mg PO DAILY 01/12/14 06/11/21 Gentle Iron 28 1 cap PO Q48H 03/03/19 06/11/21 Magnesium Gluconate 100mg 100 mg PO DAILY 03/03/19 06/11/21 Turmeric Root Extract [Turmeric] 500 mg PO Q48H 03/03/19 06/11/21 Diltiazem Cd [Cardizem CD] 180 mg PO DAILY 10/30/19 06/11/21 Flecainide Acetate [Tambocor] 100 mg PO BID 12/17/19 06/11/21 Cholecalciferol [Vitamin D3 (25 25 mcg PO DAILY 08/31/20 06/11/21 Mcg = 1000 Iu)] Glucosam/Amador-Msm1/C/Julio/Bosw 1 tab PO BID 05/15/21 06/11/21 [Glucosamine-Chondroitin Tablet] Previous Rx's Medication Instructions Recorded Apixaban [Eliquis] 5 mg PO BID #60 tab 03/05/19 Docusate [Colace] 100 mg PO BID #30 capsule 06/02/21 HYDROcodone/APAP 5-325MG [Dodson 1 tab PO Q6HR PRN 3 Days #12 tab 06/02/21 5-325] Allergies Allergy/AdvReac Type Severity Reaction Status Date / Time Penicillins Allergy Severe Rash/Hives Verified 06/11/21 19:36 over entire body anidulafungin AdvReac Chest Verified 06/11/21 19:36 Pain/Severe Arm pain with infusion benzonatate AdvReac Dyspnea Verified 06/11/21 19:36 [From Harper Yanez] Review of Systems ROS Statement: Those systems with pertinent positive or pertinent negative responses have been documented in the HPI. ROS Other: All systems not noted in ROS Statement are negative. Past Medical History Past Medical History: Atrial Fibrillation, Cancer, Osteoarthritis (OA) Additional Past Medical History / Comment(s): Mantle Lymphoma, Basal Cell Carcinoma Oct 2012 (in remission), hx Bronchitis. aortic aneurysm History of Any Multi-Drug Resistant Organisms: None Reported Past Surgical History: Hernia Repair, Joint Replacement Additional Past Surgical History / Comment(s): Removal of skin cancer, bone marrow transplant, right knee replacement Past Anesthesia/Blood Transfusion Reactions: No Reported Reaction Past Psychological History: No Psychological Hx Reported Smoking Status: Never smoker Past Alcohol Use History: None Reported Past Drug Use History: None Reported - Past Family History Brother(s) Family Medical History: Cancer Additional Family Medical History / Comment(s): . Father Family Medical History: No Reported History Additional Family Medical History / Comment(s): Father was healthy and lived to be 95 yrs old. Mother Family Medical History: Vascular Disorder Additional Family Medical History / Comment(s): Mother at the age of 74 yrs from a ruptured aortic aneurysm. Son(s) Additional Family Medical History / Comment(s): Patient has 2 sons with no major medical problems. Patient doesn't have any sisters. General Exam Limitations: no limitations General appearance: alert, in no apparent distress Head exam: Present: atraumatic Eye exam: Present: normal appearance. Absent: scleral icterus, conjunctival injection ENT exam: Present: mucous membranes dry Neck exam: Present: normal inspection, full ROM. Absent: tenderness, meningismus, lymphadenopathy, thyromegaly Respiratory exam: Present: normal lung sounds bilaterally. Absent: respiratory distress, accessory muscle use Cardiovascular Exam: Present: regular rate, normal rhythm. Absent: JVD GI/Abdominal exam: Present: soft, other (Surgical incisions from cholecystectomy intact with no erythema or drainage). Absent: distended, tenderness, guarding, rebound, rigid, mass Extremities exam: Present: normal inspection, normal capillary refill. Absent: tenderness, pedal edema, calf tenderness Back exam: Present: normal inspection, full ROM. Absent: tenderness, CVA tenderness (R), CVA tenderness (L), rash noted Neurological exam: Present: alert, oriented X3 Psychiatric exam: Present: normal affect, normal mood Skin exam: Present: warm, dry, intact, normal color. Absent: rash, cyanosis, diaphoretic, petechiae, pallor Course Vital Signs 06/11/21 06/11/21 06/11/21 17:31 20:16 22:37 Temperature 98.5 F Pulse Rate 77 72 64 Respiratory 20 18 18 Rate Blood Pressure 108/55 113/71 124/81 O2 Sat by Pulse 98 96 96 Oximetry EKG Findings - EKG Results: EKG: sinus rhythm (Ventricular rate of 70, MS interval 0.20, QRS 0.114, QTC 0.470) Medical Decision Making - Medical Decision Making Hemoglobin and hematocrit are stable. Electrolytes are improved or unchanged from last admission. TSH is within normal limits. Lactic acid is negative. EKG shows no ST elevation or acute changes and troponin is negative at 0.012. Chest x-ray is negative for any acute cardiopulmonary process. Upon exam abdomen is soft and nontender. Lungs sounds are clear to auscultation. At this time I do not have a reason for the patient's fatigue. This has been ongoing and family at bedside states they do have an appointment with the electrician for his mantle cell lymphoma. I did discuss with patient and family member strict return parameters, worsening symptoms, chest pain difficulty breathing or fevers to return to the hospital. They are agreeable to this plan of care. Vital signs are Stable at discharge. Case discussed with Dr. Krishna. - Lab Data Result diagrams: 06/11/21 19:23 06/11/21 19:23 Lab Results 06/11/21 06/11/21 06/11/21 Range/Units 19: 19: 19: WBC 4.0 (3.8-10.6) k/uL RBC 4.52 (4.30-5.90) m/uL Hgb 14.1 (13.0-17.5) gm/dL Hct 43.7 (39.0-53.0) % MCV 96.7 (80.0-100.0) fL MCH 31.2 (25.0-35.0) pg MCHC 32.3 (31.0-37.0) g/dL RDW 13.8 (11.5-15.5) % Plt Count 260 (150-450) k/uL MPV 9.0 Neutrophils % (Manual) 39 % Lymphocytes % (Manual) 38 % Monocytes % (Manual) 10 % Eosinophils % (Manual) 13 % Neutrophils # (Manual) 1.56 (1.3-7.7) k/uL Lymphocytes # (Manual) 1.52 (1.0-4.8) k/uL Monocytes # (Manual) 0.40 (0-1.0) k/uL Eosinophils # (Manual) 0.52 (0-0.7) k/uL Nucleated RBCs 0 (0-0) /100 WBC Manual Slide Review Performed Reactive Lymphocytes Present PT 9.7 (9.0-12.0) sec INR 0.9 (<1.2) APTT 24.2 (22.0-30.0) sec Sodium 136 L (137-145) mmol/L Potassium 4.4 (3.5-5.1) mmol/L Chloride 103 (98-107) mmol/L Carbon Dioxide 26 (22-30) mmol/L Anion Gap 7 mmol/L BUN 26 H (9-20) mg/dL Creatinine 0.89 (0.66-1.25) mg/dL Est GFR (CKD-EPI)AfAm >90 (>60 ml/min/1.73 sqM) Est GFR (CKD-EPI)NonAf 85 (>60 ml/min/1.73 sqM) Glucose 106 H (74-99) mg/dL Plasma Lactic Acid Evan (0.7-2.0) mmol/L Calcium 8.0 L (8.4-10.2) mg/dL Magnesium 1.9 (1.6-2.3) mg/dL Total Bilirubin 0.4 (0.2-1.3) mg/dL AST 58 (17-59) U/L ALT 57 H (4-49) U/L Alkaline Phosphatase 154 H (38-126) U/L Troponin I (0.000-0.034) ng/mL C-Reactive Protein <0.5 (<1.0) mg/dL Total Protein 6.1 L (6.3-8.2) g/dL Albumin 3.2 L (3.5-5.0) g/dL TSH 2.460 (0.465-4.680) mIU/L 06/11/21 06/11/21 Range/Units 19:23 19:23 WBC (3.8-10.6) k/uL RBC (4.30-5.90) m/uL Hgb (13.0-17.5) gm/dL Hct (39.0-53.0) % MCV (80.0-100.0) fL MCH (25.0-35.0) pg MCHC (31.0-37.0) g/dL RDW (11.5-15.5) % Plt Count (150-450) k/uL MPV Neutrophils % (Manual) % Lymphocytes % (Manual) % Monocytes % (Manual) % Eosinophils % (Manual) % Neutrophils # (Manual) (1.3-7.7) k/uL Lymphocytes # (Manual) (1.0-4.8) k/uL Monocytes # (Manual) (0-1.0) k/uL Eosinophils # (Manual) (0-0.7) k/uL Nucleated RBCs (0-0) /100 WBC Manual Slide Review Reactive Lymphocytes PT (9.0-12.0) sec INR (<1.2) APTT (22.0-30.0) sec Sodium (137-145) mmol/L Potassium (3.5-5.1) mmol/L Chloride (98-107) mmol/L Carbon Dioxide (22-30) mmol/L Anion Gap mmol/L BUN (9-20) mg/dL Creatinine (0.66-1.25) mg/dL Est GFR (CKD-EPI)AfAm (>60 ml/min/1.73 sqM) Est GFR (CKD-EPI)NonAf (>60 ml/min/1.73 sqM) Glucose (74-99) mg/dL Plasma Lactic Acid Evan 1.8 (0.7-2.0) mmol/L Calcium (8.4-10.2) mg/dL Magnesium (1.6-2.3) mg/dL Total Bilirubin (0.2-1.3) mg/dL AST (17-59) U/L ALT (4-49) U/L Alkaline Phosphatase (38-126) U/L Troponin I <0.012 (0.000-0.034) ng/mL C-Reactive Protein (<1.0) mg/dL Total Protein (6.3-8.2) g/dL Albumin (3.5-5.0) g/dL TSH (0.465-4.680) mIU/L Disposition Clinical Impression: Fatigue Disposition: HOME SELF-CARE Condition: Good Instructions (If sedation given, give patient instructions): Fatigue (ED) Additional Instructions: At this time I do not have a cause for your symptoms. Findings on physical exam, blood work along with your x-ray today are reassuring. I feel you can be discharged from the emergency room however please return if you get worse or y our symptoms change. Follow-up with the primary care doctor this week. Is patient prescribed a controlled substance at d/c from ED?: No Referrals: Hemanth Meza MD [Primary Care Provider] - 1-2 days Time of Disposition: 22:17
[2021-06-11 19:47] LABS: ALT 57 U/L (4-49); AST 58 U/L (17-59); African American GFR (CKD) >90 (>60 ml/min/1.73 sqM); Albumin 3.2 g/dL (3.5-5.0); Alkaline Phosphatase 154 U/L (38-126); Anion Gap 7 mmol/L; Blood Urea Nitrogen 26 mg/dL (9-20); Carbon Dioxide 26 mmol/L (22-30); Chloride 103 mmol/L (98-107); Glucose 106 mg/dL (74-99); HCT 43.7 % (39.0-53.0); HGB 14.1 gm/dL (13.0-17.5); INR 0.9 (<1.2); MCH 31.2 pg (25.0-35.0); MCHC 32.3 g/dL (31.0-37.0); MCV 96.7 fL (80.0-100.0); Magnesium 1.9 mg/dL (1.6-2.3); Non-African American GFR(CKD) 85 (>60 ml/min/1.73 sqM); Partial Thromboplastin Time 24.2 sec (22.0-30.0); Platelet Count 260 k/uL (150-450); Potassium 4.4 mmol/L (3.5-5.1); Prothrombin Time 9.7 sec (9.0-12.0); RBC 4.52 m/uL (4.30-5.90); RDW 13.8 % (11.5-15.5); Sodium 136 mmol/L (137-145); Total Bilirubin 0.4 mg/dL (0.2-1.3); Total Protein 6.1 g/dL (6.3-8.2)
--- NOTE | 2021-06-11 19:49 | XR ---
EXAMINATION TYPE: XR chest 2V DATE OF EXAM: 06/11/2021 COMPARISON: 05/26/2021 HISTORY: Weakness TECHNIQUE: FINDINGS: Heart and mediastinum appear normal. Lungs are clear. Diaphragm is normal. Bony thorax is i ntact. IMPRESSION: No active cardiopulmonary disease. No change.
[2021-06-11 20:02] LABS: Eosinophils # (M) 0.52 k/uL (0-0.7); Lymphocytes # (M) 1.52 k/uL (1.0-4.8); Neutrophils # (M) 1.56 k/uL (1.3-7.7); Neutrophils % (M) 39 %; Nucleated Red Blood Cells 0 /100 WBC (0-0); Reactive Lymphocytes Present; Total Cells Counted 100
[2021-06-11 20:17] LABS: C Reactive Protein <0.5 mg/dL (<1.0)
[2021-06-11 21:07] VITALS: RESP 18
[2021-06-11 22:38] VITALS: BP 124/81; PULSE 64
== END 2021-06-11 22:40 | disposition home or self-care (01) ==
LOC: EC 17:24
DX: R53.83 Other fatigue (principal); Z88.0 Allergy status to penicillin; Z88.3 Allergy status to other anti-infective agents; Z88.8 Allergy status to other drugs, medicaments and biological substances
CPT/HCPCS: 36415; 71046; 80053; 82728; 83605; 83735; 84443; 84484; 85025; 85610; 85730; 86140; 93005; 99285

== ENCOUNTER → 2021-06-30 | Outpatient (CLI) | payer MEDICARE ==
--- NOTE | 2021-07-03 06:08 | PE ---
EXAMINATION TYPE: PET CT fusion skull to thigh DATE OF EXAM: 06/30/2021 COMPARISON: Prior PET/CT 2012. Most recent CT abdomen and pelvis May 16, 2021 and older CTs HISTORY: Mantle cell lymphoma progress study originally diagnosed in the abdomen 2013. Completed emotherapy 2013 TECHNIQUE: Following the intravenous administration of 9.14 mCi of F-18 FDG, whole body images are p erformed from the top of skull to the midthigh. Images are reviewed on the computer in the coronal, axial, and sagittal planes. Reconstructed rotating images are created on independent workstation and reviewed on the computer. A localization and attenuation correction CT is performed in conjunction with the PET scan. Blood glucose level equals 87 SCAN: Subsequent Scan FINDINGS: Mean SUV mediastinum: 0.86 Mean SUV liver: 2.23 HEAD AND NECK: No areas of abnormal hypermetabolic uptake. CHEST, MEDIASTINUM, AND HILAR REGION: No areas of abnormal hypermetabolic uptake. ABDOMEN AND PELVIS: No areas of abnormal hypermetabolic uptake. OSSEOUS STRUCTURES: No areas of abnormal hypermetabolic uptake. OTHER CT: There is mucous retention cyst or polyp in the inferior right maxillary sinus. Multiple cholecystectomy clips. Spleen is normal in size. Mild to moderate fat replaced atrophy of th e pancreas. Left kidney has exophytic 4.8 cm thin-walled cyst posteriorly. Scattered pelvic phlebolit hs. Prostate gland upper limits of normal in size. Multilevel disc space narrowing and vacuum disc ph enomenon of the lumbar spine. Fat-containing bilateral inguinal hernias are redemonstrated. IMPRESSION: No areas of abnormal hypermetabolic uptake to suggest neoplastic recurrence.
== END | disposition home or self-care (01) ==
LOC: RADPETMAIN 11:35
PROVIDERS: ATTEND Internal Medicine Hematology & Oncology
DX: C83.18 Mantle cell lymphoma, lymph nodes of multiple sites (principal)
CPT/HCPCS: 78815; A9552

== ENCOUNTER → 2021-08-03 | Outpatient (CLI) | payer MEDICARE ==
--- NOTE | 2021-08-03 09:23 | CT ---
EXAMINATION TYPE: CT abdomen pelvis w con DATE OF EXAM: 08/03/2021 COMPARISON: CT dated 05/16/2021 HISTORY: Diverticulitis CT DLP: 1219.3 mGycm Automated exposure control for dose reduction was used. TECHNIQUE: Helical acquisition of images was performed from the lung bases through the pelvis. CONTRAST: Performed with Oral Contrast and with IV Contrast, patient injected with 70 mL of Isovue 300. FINDINGS: LUNG BASES: No significant abnormality is appreciated. LIVER/GB: Previous cholecystectomy. Left hepatic lobe cyst, appreciated previously. PANCREAS: Fatty infiltration of the pancreas. SPLEEN: No significant abnormality is seen. ADRENALS: No significant abnormality is seen. KIDNEYS: Bilateral renal cysts without gross suspicious features, otherwise unremarkable kidneys. FREE AIR: No free air is visualized. RETROPERITONEAL ADENOPATHY: None visualized REPRODUCTIVE ORGANS: Enlarged prostate. Unremarkable seminal vesicles. URINARY BLADDER: No significant abnormality is seen. PELVIC ADENOPATHY: No pathologically enlarged pelvic lymph nodes. OSSEOUS STRUCTURES: Degenerative images of the lumbar spine. No aggressive bone lesion. BOWEL: Unremarkable stomach, duodenum and small bowel. Significant fecal loading of the colon sugges tive of constipation. No convincing evidence of acute diverticulitis. OTHER: Scattered arterial atherosclerotic calcification. Infrarenal abdominal aortic ectasia measurin g up to 2.3 cm. No sizable ascites. Fat-containing inguinal hernias. IMPRESSION: No evidence of acute diverticulitis. Significant fecal loading of the colon suggestive of constipatio n, please correlate clinically. Other findings as described above.
== END | disposition home or self-care (01) ==
LOC: RADCTMAIN 07:06
PROVIDERS: ATTEND Surgery
DX: K57.32 Diverticulitis of large intestine without perforation or abscess without bleeding (principal)
CPT/HCPCS: 74177; Q9967 ×2

== ENCOUNTER → 2022-05-25 | Outpatient (CLI) | payer MEDICARE ==
--- NOTE | 2022-05-25 11:37 | PE ---
EXAMINATION TYPE: PET CT fusion skull to thigh DATE OF EXAM: 05/25/2022 COMPARISON: Most recent PET CT June 30, 2021 and older studies HISTORY: Mantle cell lymphoma diagnosed 2012 created with chemotherapy August 10 and radiation treatm ent April 2021 TECHNIQUE: Following the intravenous administration of 11.86 mCi of F-18 FDG, whole body images are performed from the skull base to the midthigh. Images are reviewed on the computer in the coronal, a xial, and sagittal planes. Reconstructed rotating images are created on independent workstation and reviewed on the computer. A localization and attenuation correction CT is performed in conjunction with the PET scan. Blood glucose level equals 90 SCAN: Subsequent Scan FINDINGS: Mean SUV mediastinum: 0.84 Mean SUV liver: 2.31 HEAD AND NECK: No new areas of abnormal hypermetabolic uptake. CHEST, MEDIASTINUM, AND HILAR REGION: No new areas of abnormal hypermetabolic uptake. ABDOMEN AND PELVIS: No new areas of abnormal hypermetabolic uptake. Normal excretion redemonstrated. OSSEOUS STRUCTURES: No new areas of abnormal hypermetabolic uptake. OTHER CT: Increasing opacification in the right maxillary sinus is present. There is 1.5 cm rounded low-density lesion left hepatic dome on axial image 125 redemonstrated suspec t thin-walled cyst. Multiple cholecystectomy clips are redemonstrated. Spleen remains normal in size. Mild to moderate fat replaced atrophy of the pancreas is redemonstrated. Left kidney has exophytic 5 .3 cm thin-walled cyst posteriorly redemonstrated. Scattered pelvic phleboliths. Multilevel disc space narrowing and vacuum disc phenomenon of the lumba r spine. Small Fat-containing bilateral inguinal hernias are redemonstrated. IMPRESSION: No areas of abnormal hypermetabolic uptake to suggest active neoplastic recurrence.
== END | disposition home or self-care (01) ==
LOC: RADPETMAIN 09:27
PROVIDERS: ATTEND Internal Medicine Hematology & Oncology
DX: C83.18 Mantle cell lymphoma, lymph nodes of multiple sites (principal)
CPT/HCPCS: 78815; A9552

== ENCOUNTER → 2022-06-06 | Outpatient (CLI) | payer MEDICARE ==
--- NOTE | 2022-06-06 19:01 | XR ---
EXAMINATION TYPE: XR chest 2V DATE OF EXAM: 06/06/2022 COMPARISON: 06/11/2021 TECHNIQUE: PA and lateral views submitted. HISTORY: Shortness of breath FINDINGS: The lungs are clear and there is no pneumothorax, pleural effusion, or focal pneumonia. Heart size normal and no overt failure. Osseous structures demonstrate hypertrophic and degenerative changes of the spine. Atherosclerotic change aorta. IMPRESSION: 1. No acute process.
[2022-06-06 23:18] LABS: Albumin 4.1 g/dL (3.8-4.9); Albumin/Globulin Ratio 1.68 (1.60-3.17); Anion Gap 14.4 mmol/L (10.00-18.00); BUN/Creat Ratio 14.58 Ratio (12.00-20.00); Blood Urea Nitrogen 17.2 mg/dL (9.0-27.0); Calcium 8.9 mg/dL (8.7-10.3); Carbon Dioxide 25.4 mmol/L (20.0-27.5); Globulin 2.5 g/dL (1.6-3.3); Non-African American GFR(CKD) 60.4 (60.0-200.0); Potassium 4.5 mmol/L (3.5-5.5); Total Bilirubin 0.4 mg/dL (0.30-1.20); Total Protein 6.6 g/dL (6.2-8.2)
== END | disposition home or self-care (01) ==
LOC: LABWHC1 15:49
PROVIDERS: ATTEND Internal Medicine Interventional Cardiology
DX: I42.8 Other cardiomyopathies (principal); R06.02 Shortness of breath
CPT/HCPCS: 36415; 71046; 80053; 83880

== ENCOUNTER 2022-06-13 19:45 | Inpatient (IN) | payer MEDICARE ==
[2022-06-13] MEDS ORDERED: SODIUM CHLORIDE 0.9% 1,000 ML IV STA ×3 (21:26→23:33)
[2022-06-13 21:57] LABS: Basophils # (A) 0.1 k/uL (0-0.2); Basophils % (A) 0 %; Eosinophils # (A) 0.1 k/uL (0-0.7); Eosinophils % (A) 0 %; HGB 12.7 gm/dL (13.0-17.5); Lymphocytes # (A) 1.3 k/uL (1.0-4.8); Lymphocytes % (A) 5 %; MCH 31.3 pg (25.0-35.0); MCHC 33.5 g/dL (31.0-37.0); MCV 93.7 fL (80.0-100.0); Mean Platelet Volume 8.8; Monocytes # (A) 0.6 k/uL (0-1.0); Monocytes % (A) 2 %; Neutrophils # (A) 21.3 k/uL (1.3-7.7); Neutrophils % (A) 91 %; Platelet Count 358 k/uL (150-450); RBC 4.06 m/uL (4.30-5.90); RDW 13.7 % (11.5-15.5); WBC 23.6 k/uL (3.8-10.6)
[2022-06-13 22:06] LABS: Partial Thromboplastin Time 26.9 sec (22.0-30.0); Prothrombin Time 10.3 sec (9.0-12.0)
[2022-06-13 22:09] LABS: ALT 109 U/L (4-49); AST 84 U/L (17-59); African American GFR (CKD) >90 (>60 ml/min/1.73 sqM); Albumin 2.9 g/dL (3.5-5.0); Alkaline Phosphatase 282 U/L (38-126); Anion Gap 8 mmol/L; Blood Urea Nitrogen 18 mg/dL (9-20); Calcium 8.1 mg/dL (8.4-10.2); Carbon Dioxide 26 mmol/L (22-30); Chloride 100 mmol/L (98-107); Glucose 132 mg/dL (74-99); Magnesium 2.1 mg/dL (1.6-2.3); Non-African American GFR(CKD) 88 (>60 ml/min/1.73 sqM); Sodium 134 mmol/L (137-145); Total Bilirubin 0.6 mg/dL (0.2-1.3); Total Protein 5.7 g/dL (6.3-8.2)
--- NOTE | 2022-06-13 22:25 | XR ---
EXAMINATION TYPE: XR chest 2V DATE OF EXAM: 06/13/2022 10:11 PM COMPARISON: Chest radiographs from 06/06/2022 TECHNIQUE: XR chest 2V Frontal and lateral views of the chest. CLINICAL INDICATION:Male, 76 years old with history of Weakness; FINDINGS: Lungs/Pleura: There is no evidence of pleural effusion, focal consolidation, or pneumothorax. Pulmonary vascularity: Unremarkable. Heart/mediastinum: Cardiomediastinal silhouette is unremarkable. Musculoskeletal: No acute osseous pathology. IMPRESSION: No acute cardiopulmonary disease/process.
--- NOTE | 2022-06-13 22:27 | CT ---
EXAMINATION TYPE: CT brain wo con CT DLP: 1231.8 mGycm, Automated exposure control for dose reduction was used. DATE OF EXAM: 06/13/2022 10:13 PM COMPARISON: 05/25/2022. CLINICAL INDICATION:Male, 76 years old with history of weakness, weakness. TECHNIQUE: Brain: Axial CT images of the brain were obtained with coronal and sagittal reformats created and rev iewed. Contrast used: None. Oral contrast used: None. FINDINGS: Brain: Extra-axial spaces: No abnormal extra-axial fluid collections. Ventricular system: Dilatation in proportion to cerebral atrophy. Cerebral parenchyma: Cerebral atrophy. No acute intraparenchymal hemorrhage or mass effect. The galicia -white junction is well differentiated. Scattered hypoattenuating areas are seen within the white mat ter. Cerebellum: Unremarkable. Mass effect: No evidence of midline shift. Intracranial vasculature: unremarkable Soft tissues: Normal. Calvarium/osseous structures: No depressed skull fracture. Paranasal sinuses and mastoid air cells: Mild scattered paranasal sinus disease. Findings most pronou nced maxillary sinus. Trace left mastoid air cell effusion. Visualized orbits: Orbital contents are intact. IMPRESSION: 1. No acute intracranial process. 2. Nonspecific white matter changes, likely secondary to chronic small vessel ischemic disease.
[2022-06-13] MEDS: FLECAINIDE 50 MG TAB PO SCH (22:34)
[2022-06-13] MEDS: DILTIAZEM CD 120 MG CAP.ER.24H PO SCH (22:34)
--- NOTE | 2022-06-13 23:01 | ED ---
General Adult HPI - General Chief complaint: Weakness Stated complaint: Chills,Weakness,heart issues Time Seen by Provider: 06/13/22 21:15 Source: patient, family, RN notes reviewed, old records reviewed Mode of arrival: ambulatory Limitations: no limitations - History of Present Illness Initial comments: Patient is a 76-year-old male with past medical history remarkable for lymphoma currently in remission, A. fib, who presents emergency Department complaining of weakness, fevers that are low-grade, chills and Saturday. Recently received an iron transfusion on Saturday. Has been having worsening symptoms since then. Was having a mildly before that but now they are on a daily basis multiple times per day. T-max was over 101F. Only acute complaint at this time is a mild sore throat. Also endorses some generalized abdominal discomfort and possible constipation. Denies any diarrhea. Denies any nausea or vomiting. Denies any chest pain. Denies any cough. Has no other acute complaint at this time. Denies any chest pain or shortness of breath. No known sick contacts. Presents for further evaluation at this time. Has required admission in the past. Does have a history of a cholecystectomy. - Related Data Home Medications Medication Instructions Recorded Confirmed Flecainide Acetate [Tambocor] 100 mg PO BID 12/17/19 06/13/22 ALPRAZolam [Xanax] 0.25 mg PO BID PRN 06/13/22 06/13/22 Albuterol Sulfate [Ventolin HFA] 2 puff INHALATION RT-Q6H PRN 06/13/22 06/13/22 Azithromycin [Zithromax] 500 mg PO DAILY 06/13/22 06/14/22 Meloxicam [Mobic] 7.5 mg PO DAILY 06/13/22 06/13/22 dilTIAZem HCL [Cartia Xt] 120 mg PO HS 06/13/22 06/13/22 Previous Rx's Medication Instructions Recorded Apixaban [Eliquis] 5 mg PO BID #60 tab 03/05/19 Allergies Allergy/AdvReac Type Severity Reaction Status Date / Time Penicillins Allergy Severe Rash/Hives Verified 06/13/22 19:58 over entire body anidulafungin AdvReac Chest Verified 06/13/22 19:58 Pain/Severe Arm pain with infusion benzonatate AdvReac Dyspnea Verified 06/13/22 19:58 [From Harper Yanez] Review of Systems ROS Statement: Those systems with pertinent positive or pertinent negative responses have been documented in the HPI. Review of Systems: CONST: Endorses fever EYES: Denies blurry vision ENT: Denies nasal congestion C/V: Denies Chest pain RESP: Denies shortness of breath GI: Endorses generalized abdominal discomfort : Denies dysuria SKIN: Denies rash. MSK: Denies joint pain. NEURO: Endorses weakness ROS Other: All systems not noted in ROS Statement are negative. Past Medical History Past Medical History: Atrial Fibrillation, Cancer, Osteoarthritis (OA) Additional Past Medical History / Comment(s): Mantle Lymphoma, Basal Cell Carcinoma Oct 2012 (in remission), hx Bronchitis. aortic aneurysm History of Any Multi-Drug Resistant Organisms: None Reported Past Surgical History: Hernia Repair, Joint Replacement Additional Past Surgical History / Comment(s): Removal of skin cancer, bone marrow transplant, right knee replacement Past Anesthesia/Blood Transfusion Reactions: No Reported Reaction Past Psychological History: No Psychological Hx Reported Smoking Status: Never smoker Past Alcohol Use History: None Reported Past Drug Use History: None Reported - Past Family History Brother(s) Family Medical History: Cancer Additional Family Medical History / Comment(s): . Father Family Medical History: No Reported History Additional Family Medical History / Comment(s): Father was healthy and lived to be 95 yrs old. Mother Family Medical History: Vascular Disorder Additional Family Medical History / Comment(s): Mother at the age of 74 yrs from a ruptured aortic aneurysm. Son(s) Additional Family Medical History / Comment(s): Patient has 2 sons with no major medical problems. Patient doesn't have any sisters. General Exam - General Exam Comments Initial Comments: General: Appears in no acute distress. HEAD: Normal with no signs of head trauma. EYES: PERRLA, EOMI, conjunctiva normal, no discharge. ENT: Hearing grossly intact, normal oropharynx. Mildly dry mucous membranes. RESPIRATORY: Clear breath sounds bilaterally. No wheezes, rales, or rhonchi. C/V: Regular rate and rhythm. S1 and S2 auscultated, chronic edema in the lower extremities is symmetrical and at his baseline, peripheral pulses 2+ and intact throughout ABD: Abdomen is soft, normal distention per patient. No focal tenderness to palpation. No guarding. No rebound tenderness, no peritoneal signs. EXT: Normal range of motion, no obvious deformity SKIN: No rashes or lesions observed on exposed skin. NEURO: Alert and oriented 4. Limitations: no limitations Course Vital Signs 06/13/22 06/13/22 06/13/22 19:53 21:52 22:00 Temperature 99.1 F Pulse Rate 108 H 106 H 89 Respiratory 18 20 17 Rate Blood Pressure 122/72 93/54 O2 Sat by Pulse 96 98 97 Oximetry 06/13/22 06/14/22 06/14/22 23:00 00:00 00:33 Temperature 98.1 F Pulse Rate 85 76 81 Respiratory 18 18 20 Rate Blood Pressure 102/71 118/99 122/73 O2 Sat by Pulse 96 96 95 Oximetry Medical Decision Making - Medical Decision Making Was pt. sent in by a medical professional or institution (, PA, MALWARE ANALYST, urgent care, hospital, or [facility]...) When possible be specific @ -No Did you speak to anyone other than the patient for history (EMS, parent, family, police, friend...)? What history was obtained from this source @ -Patient's and other family member at bedside who provided most of the patient's history. Did you review nursing and triage notes (agree or disagree)? Why? @ -I reviewed and agree with nursing and triage notes Were old charts reviewed (outside hosp., previous admission, EMS record, old EKG, old radiological studies, urgent care reports/EKG's, [facility] records)? Report findings @ -Old charts reviewed from May 2021 Differential Diagnosis (chest pain, altered mental status, abdominal pain women, abdominal pain men, vaginal bleeding, weakness, fever, dyspnea, syncope, headache, dizziness, GI bleed, back pain, seizure, CVA, palpatations, mental health, musculoskeletal)? @ -Differential Abdominal Pain Men: Appendicitis, cholecystitis, diverticulosis, ischemic bowel, pancreatitis, hep atitis, UTI, gastroenteritis, AAA, incarcerated hernia, bowel obstruction, constipation, inflammatory bowel, hepatitis, peptic ulcer disease, splenic infarction, perforated viscus, testicular torsion, this is not meant to be an all-inclusive list Differential Fever: Pneumonia, viral URI, endocarditis, myocarditis, pericarditis, otitis, sinusitis, peritonsillar Abscess, retropharyngeal Abscess, epiglottitis, peritonitis, appendicitis, Ana Rosa cystitis, diverticulitis, hepatitis, colitis, UTI, PID, TOA, pyelonephritis, prostatitis, epididymitis, meningitis, encephalitis, pulmonary embolism, CVA, thyroid storm, pancreatitis, adrenal crisis, cavernous sinus thrombosis, this is not meant to be an all-inclusive list. EKG interpreted by me (3pts min.). @ -As above X-rays interpreted by me (1pt min.). @ -Chest x-ray reveals no obvious acute cardiopulmonary process. CT interpreted by me (1pt min.). @ -CT brain reveals no obvious acute intracranial process or injury.CT of the abdomen and pelvis revealed possible colitis of the descending colon but no other obvious acute process. U/S interpreted by me (1pt. min.). @ -None done What testing was considered but not performed or refused? (CT, X-rays, U/S, la bs)? Why? @ -None What meds were considered but not given or refused? Why? @ -None Did you discuss the management of the patient with other professionals (professionals i.e. , PA, MALWARE ANALYST, lab, RT, psych nurse, psychotherapist social worker, roofer helper, teacher, aoc director combat plans officer, casework specialist)? Give summary @ -Discussed with Dr. Quigley of [facility] who accepted the admission. Was smoking cessation discussed for >3mins.? @ -No Was critical care preformed (if so, how long)? @ -No Were there social determinants of health that impacted care today? How? (Homelessness, low income, unemployed, alcoholism, drug addiction, transportation, low edu. Level, literacy, decrease access to med. care, [facility], rehab)? @ -No Was there de-escalation of care discussed even if they declined (Discuss DNR or withdrawal of care, Hospice)? DNR status @ -No What co-morbidities impacted this encounter? (DM, HTN, Smoking, COPD, CAD, Cancer, CVA, ARF, Chemo, Hep., AIDS, mental health diagnosis, sleep apnea, morbid obesity)? @ -A. fib on blood thinners, history of lymphoma in remission Was patient admitted / discharged? Hospital course, mention meds given and route, prescriptions, significant lab abnormalities, going to OR and other pertinent info. @ -Based on the patient's presentation and physical exam, he presents with intermittent fevers at home with chills since last week. Did have an iron infusion but was having his symptoms mildly prior to this. Denies any coughing. Does endorse mild sore throat. Denies any nasal congestion. Denies any nausea, vomiting, diarrhea. Denies any chest pain. His no focal evidence of infection at this time but we will obtain broad workup as well as a screening EKG and CT brain. Denies any recent falls. There were any agreement with this plan. Vital signs within acceptable limits. Patient was given any evening dose of his Cardizem and flecanide. EKG showed no signs of acute ischemia. Patient's laboratory studies are remarkable for a leukocytosis of 23.6 which is increased from June 11 when it was 4. LFTs are mildly elevated. Alk phos is mildly elevated as well but he does by history of this being elevated. Covid, flu, RSV, strep negative. Lactic acid within acceptable limits. On reevaluation, patient remains asymptomatic and unchanged from earlier. I did recommend that we obtain CT of the pelvis, as well as blood cultures and place the patient on empiric antibiotics, as I have no clear etiology for the leukocytosis this time but it is acute. He will be admitted to the hospital. They were in agreement this plan. Urinalysis unremarkable. CT of the abdomen and pelvis shows possible colitis of the descending colon but no other obvious findings. I did discuss the results of the patient as well as family. I would like to admit him to the hospital on broad-spectrum antibiotics for evaluation by infectious disease as well as his crotch breaker Dr. Gan. They were in agreement with this plan. I have a lower suspicion for transfusion reaction at this time as is been 4 days since the transfusion, patient is not in anaphylaxis, no obvious anemia or bleeding. However we will obtain hemolytic transfusion reaction labs including haptoglobin, LDH, fibrinogen. Blood cultures are obtained and sent. There were agreement this plan. I spoke with [facility] Dr. Quigley who admits for [facility] and who accepted the patient. Undiagnosed new problem with uncertain prognosis? @ -No Drug Therapy requiring intensive monitoring for toxicity (Heparin, Nitro, Insulin, Cardizem)? @ -No Were any procedures done? @ -No Diagnosis/symptom? @ -Leukocytosis, colitis, febrile illness Acute, or Chronic, or Acute on Chronic? @ -Acute Uncomplicated (without systemic symptoms) or Complicated (systemic symptoms)? @ -Uncomplicated Side effects of treatment? @ -none Exacerbation, Progression, or Severe Exacerbation] @ -no Poses a threat to life or bodily function? @ -Yes Diagnosis/symptom? @ -History of lymphoma, recent iron transfusion Acute, or Chronic, or Acute on Chronic? @ -Acute, chronic Uncomplicated (without systemic symptoms) or Complicated (systemic symptoms)? @ -Complicated Side effects of treatment? @ -none Exacerbation, Progression, or Severe Exacerbation] @ -no Poses a threat to life or bodily function? @ -no - Lab Data Result diagrams: 06/14/22 07:54 06/14/22 07:54 Lab Results 06/13/22 06/13/22 06/13/22 Range/Units 21:43 21:43 21:43 WBC 23.6 H (3.8-10.6) k/uL RBC 4.06 L (4.30-5.90) m/uL Hgb 12.7 L (13.0-17.5) gm/dL Hct 38.0 L (39.0-53.0) % MCV 93.7 (80.0-100.0) fL MCH 31.3 (25.0-35.0) pg MCHC 33.5 (31.0-37.0) g/dL RDW 13.7 (11.5-15.5) % Plt Count 358 (150-450) k/uL MPV 8.8 Neutrophils % 91 % Lymphocytes % 5 % Monocytes % 2 % Eosinophils % 0 % Basophils % 0 % Neutrophils # 21.3 H (1.3-7.7) k/uL Lymphocytes # 1.3 (1.0-4.8) k/uL Monocytes # 0.6 (0-1.0) k/uL Eosinophils # 0.1 (0-0.7) k/uL Basophils # 0.1 (0-0.2) k/uL PT 10.3 (9.0-12.0) sec INR 1.0 (<1.2) APTT 26.9 (22.0-30.0) sec Sodium 134 L (137-145) mmol/L Potassium 4.0 (3.5-5.1) mmol/L Chloride 100 (98-107) mmol/L Carbon Dioxide 26 (22-30) mmol/L Anion Gap 8 mmol/L BUN 18 (9-20) mg/dL Creatinine 0.80 (0.66-1.25) mg/dL Est GFR (CKD-EPI)AfAm >90 (>60 ml/min/1.73 sqM) Est GFR (CKD-EPI)NonAf 88 (>60 ml/min/1.73 sqM) Glucose 132 H (74-99) mg/dL Plasma Lactic Acid Evan (0.7-2.0) mmol/L Calcium 8.1 L (8.4-10.2) mg/dL Magnesium 2.1 (1.6-2.3) mg/dL Total Bilirubin 0.6 (0.2-1.3) mg/dL AST 84 H (17-59) U/L ALT 109 H (4-49) U/L Alkaline Phosphatase 282 H (38-126) U/L Total Protein 5.7 L (6.3-8.2) g/dL Albumin 2.9 L (3.5-5.0) g/dL Urine Color Urine Appearance (Clear) Urine pH (5.0-8.0) Ur Specific [place] (1.001-1.035) Urine Protein (Negative) Urine Glucose (UA) (Negative) Urine Ketones (Negative) Urine Blood (Negative) Urine Nitrite (Negative) Urine Bilirubin (Negative) Urine Urobilinogen (<2.0) mg/dL Ur Leukocyte Esterase (Negative) Influenza Type A (PCR) (Not Detectd) Influenza Type B (PCR) (Not Detectd) RSV (PCR) (Not Detectd) SARS-CoV-2 (PCR) (Not Detectd) Group A Strep (PCR) (Not Detectd) 06/13/22 06/13/22 06/13/22 Range/Units 21:43 21:43 21:43 WBC (3.8-10.6) k/uL RBC (4.30-5.90) m/uL Hgb (13.0-17.5) gm/dL Hct (39.0-53.0) % MCV (80.0-100.0) fL MCH (25.0-35.0) pg MCHC (31.0-37.0) g/dL RDW (11.5-15.5) % Plt Count (150-450) k/uL MPV Neutrophils % % Lymphocytes % % Monocytes % % Eosinophils % % Basophils % % Neutrophils # (1.3-7.7) k/uL Lymphocytes # (1.0-4.8) k/uL Monocytes # (0-1.0) k/uL Eosinophils # (0-0.7) k/uL Basophils # (0-0.2) k/uL PT (9.0-12.0) sec INR (<1.2) APTT (22.0-30.0) sec Sodium (137-145) mmol/L Potassium (3.5-5.1) mmol/L Chloride (98-107) mmol/L Carbon Dioxide (22-30) mmol/L Anion Gap mmol/L BUN (9-20) mg/dL Creatinine (0.66-1.25) mg/dL Est GFR (CKD-EPI)AfAm (>60 ml/min/1.73 sqM) Est GFR (CKD-EPI)NonAf (>60 ml/min/1.73 sqM) Glucose (74-99) mg/dL Plasma Lactic Acid Evan 1.0 (0.7-2.0) mmol/L Calcium (8.4-10.2) mg/dL Magnesium (1.6-2.3) mg/dL Total Bilirubin (0.2-1.3) mg/dL AST (17-59) U/L ALT (4-49) U/L Alkaline Phosphatase (38-126) U/L Total Protein (6.3-8.2) g/dL Albumin (3.5-5.0) g/dL Urine Color Urine Appearance (Clear) Urine pH (5.0-8.0) Ur Specific [place] (1.001-1.035) Urine Protein (Negative) Urine Glucose (UA) (Negative) Urine Ketones (Negative) Urine Blood (Negative) Urine Nitrite (Negative) Urine Bilirubin (Negative) Urine Urobilinogen (<2.0) mg/dL Ur Leukocyte Esterase (Negative) Influenza Type A (PCR) Not Detected (Not Detectd) Influenza Type B (PCR) Not Detected (Not Detectd) RSV (PCR) Not Detected (Not Detectd) SARS-CoV-2 (PCR) Not Detected (Not Detectd) Group A Strep (PCR) NOT DETECTED (Not Detectd) 06/13/22 Range/Units 22:59 WBC (3.8-10.6) k/uL RBC (4.30-5.90) m/uL Hgb (13.0-17.5) gm/dL Hct (39.0-53.0) % MCV (80.0-100.0) fL MCH (25.0-35.0) pg MCHC (31.0-37.0) g/dL RDW (11.5-15.5) % Plt Count (150-450) k/uL MPV Neutrophils % % Lymphocytes % % Monocytes % % Eosinophils % % Basophils % % Neutrophils # (1.3-7.7) k/uL Lymphocytes # (1.0-4.8) k/uL Monocytes # (0-1.0) k/uL Eosinophils # (0-0.7) k/uL Basophils # (0-0.2) k/uL PT (9.0-12.0) sec INR (<1.2) APTT (22.0-30.0) sec Sodium (137-145) mmol/L Potassium (3.5-5.1) mmol/L Chloride (98-107) mmol/L Carbon Dioxide (22-30) mmol/L Anion Gap mmol/L BUN (9-20) mg/dL Creatinine (0.66-1.25) mg/dL Est GFR (CKD-EPI)AfAm (>60 ml/min/1.73 sqM) Est GFR (CKD-EPI)NonAf (>60 ml/min/1.73 sqM) Glucose (74-99) mg/dL Plasma Lactic Acid Evan (0.7-2.0) mmol/L Calcium (8.4-10.2) mg/dL Magnesium (1.6-2.3) mg/dL Total Bilirubin (0.2-1.3) mg/dL AST (17-59) U/L ALT (4-49) U/L Alkaline Phosphatase (38-126) U/L Total Protein (6.3-8.2) g/dL Albumin (3.5-5.0) g/dL Urine Color Yellow Urine Appearance Clear (Clear) Urine pH 6.5 (5.0-8.0) Ur Specific [place] 1.017 (1.001-1.035) Urine Protein Trace H (Negative) Urine Glucose (UA) Negative (Negative) Urine Ketones Negative (Negative) Urine Blood Negative (Negative) Urine Nitrite Negative (Negative) Urine Bilirubin Negative (Negative) Urine Urobilinogen 4.0 (<2.0) mg/dL Ur Leukocyte Esterase Negative (Negative) Influenza Type A (PCR) (Not Detectd) Influenza Type B (PCR) (Not Detectd) RSV (PCR) (Not Detectd) SARS-CoV-2 (PCR) (Not Detectd) Group A Strep (PCR) (Not Detectd) - EKG Data -: EKG Interpreted by Me EKG Comments: 12-lead Electrocardiogram Interpretation Note EKG was reviewed and interpreted by myself. 12-lead ECG performed at 2210 is interpreted by me as revealing normal sinus rhythm with first-degree AV block at a rate of 91 beats per minute. [place] is normal. OH interval is 216 and prolonged which is chronic. QRS duration is 116 ms, QTc is 446 ms.. There were no ST or T wave abnormalities to suggest myocardial ischemia or injury. R wave progression across the precordium was satisfactory. By my interpretation this EKG is non-diagnostic for acute ischemia. When compared with EKG from May 2021, no significant change. Disposition Clinical Impression: Leukocytosis, Febrile illness, Colitis Disposition: ADMITTED IP TO THIS HOSP Condition: Stable Time of Disposition: 23:35
[2022-06-13 23:17] LABS: Appearance,Urine Clear (Clear); Bilirubin,Urine Negative (Negative); Blood,Urine Negative (Negative); Color,Urine Yellow; Glucose,Urine (UA) Negative (Negative); Ketones,Urine Negative (Negative); Leukocyte Esterase,Urine Negative (Negative); Nitrite,Urine Negative (Negative); PH, Urine 6.5 (5.0-8.0); Protein,Urine Trace (Negative); Specific Gravity,Urine 1.017 (1.001-1.035)
--- NOTE | 2022-06-13 23:28 | CT ---
EXAMINATION TYPE: CT abdomen pelvis w con CT DLP: 526 mGycm, Automated exposure control for dose reduction was used. DATE OF EXAM: 06/13/2022 11:09 PM COMPARISON: PET/CT 05/25/2022, CT abdomen pelvis 08/03/2021 CLINICAL INDICATION:Male, 76 years old with history of abdominal pain, acute, nonlocalized; fever, ch ills, abdominal pain. TECHNIQUE: Axial CT of the abdomen and pelvis. Sagittal and coronal reformats were created on a [employer] workstation. Contrast used:100 mL of Isovue 300 with IV Contrast, Oral contrast used: without Oral Contrast FINDINGS: LOWER CHEST: The heart is mildly enlarged for size. ABDOMEN LIVER: Left hepatic lobe cyst. GALLBLADDER AND BILE DUCTS: Gallbladder surgically absent. PANCREAS: Lipomatous atrophy changes of the pancreatic gland. SPLEEN: Unremarkable. ADRENAL GLANDS: Unremarkable. KIDNEYS AND URETERS: No evidence of hydronephrosis or renal calculus. The ureters are unremarkable. Left renal cysts. Mild inflammation changes seen on the left kidney. Peripelvic renal cysts on the le ft. PELVIS BLADDER: Unremarkable REPRODUCTIVE: Median lobe hypertrophy changes to the prostate gland. ABDOMEN & PELVIS STOMACH AND BOWEL: No evidence of bowel obstruction. The left lateral abdominal wall anteriorly which was not present on prior PET/CT. Located predominantly on series 201 image 38. Small hiatal hernia i s present. PERITONEUM/RETROPERITONEUM: No evidence of pneumoperitoneum or free fluid. VASCULATURE: No evidence of aortic aneurysm. MUSCULOSKELETAL: No acute osseous abnormalities, bone island left iliac bone, multilevel disc degener ation changes throughout the visualized spine. LYMPH NODES: No gross evidence for lymphadenopathy. SOFT TISSUE/ABDOMINAL WALL: Bilateral fat-containing inguinal hernias. Fat-containing umbilical herni a. IMPRESSION: 1. Mild fat stranding changes/inflammation involving the left anterior abdominal fat near the descen ding colon. Correlate for early colitis. No other finding within the abdomen or pelvis to correlate w ith infectious/inflammatory process. 2. Inflammation changes around the left kidney could be secondary to #1. Correlate with urinalysis. 3. No lymphadenopathy identified.
[2022-06-13] MEDS ORDERED: VANCOMYCIN IV PER PHARMACY 1 EACH MISC MISCELLANE PRN (23:32)
[2022-06-13] MEDS ORDERED: ALBUTEROL NEBULIZED 2.5 MG/3 ML INHALATION PRN (23:33)
[2022-06-13] MEDS ORDERED: NALOXONE 0.4 MG/ML 1 ML VIAL IV PRN (23:38)
[2022-06-13] MEDS ORDERED: CEFEPIME 2 GM in SODIUM CHLORIDE 0.9% 100 ML IVPB STA (23:38)
[2022-06-13] MEDS ORDERED: VANCOMYCIN 1,500 MG in SODIUM CHLORIDE 0.9% 500 ML 500 ML IVPB STA (23:44)
[2022-06-14] MEDS: APIXABAN 5 MG TAB PO SCH ×3 (00:43→20:18)
[2022-06-14 08:08] LABS: Basophils % (A) 0 %; Eosinophils # (A) 0.1 k/uL (0-0.7); Eosinophils % (A) 1 %; HCT 36.3 % (39.0-53.0); HGB 11.6 gm/dL (13.0-17.5); Lymphocytes # (A) 1.1 k/uL (1.0-4.8); Lymphocytes % (A) 6 %; MCH 30.6 pg (25.0-35.0); MCV 95.5 fL (80.0-100.0); Mean Platelet Volume 8.8; Monocytes # (A) 0.5 k/uL (0-1.0); Monocytes % (A) 3 %; Neutrophils # (A) 17.3 k/uL (1.3-7.7); Neutrophils % (A) 90 %; Platelet Count 370 k/uL (150-450); RDW 13.6 % (11.5-15.5); WBC 19.2 k/uL (3.8-10.6)
[2022-06-14 08:19] LABS: African American GFR (CKD) >90 (>60 ml/min/1.73 sqM); Anion Gap 4 mmol/L; Blood Urea Nitrogen 13 mg/dL (9-20); Calcium 7.9 mg/dL (8.4-10.2); Carbon Dioxide 26 mmol/L (22-30); Chloride 107 mmol/L (98-107); Glucose 92 mg/dL (74-99); Non-African American GFR(CKD) 89 (>60 ml/min/1.73 sqM); Sodium 137 mmol/L (137-145)
[2022-06-14] MEDS: ACETAMINOPHEN TAB 325 MG TAB PO PRN (08:59)
[2022-06-14] MEDS: CEFEPIME 2 GM in SODIUM CHLORIDE 0.9% 100 ML IVPB SCH ×3 (09:09→23:16)
[2022-06-14] MEDS: FLECAINIDE 50 MG TAB PO SCH ×2 (09:10→20:19)
[2022-06-14] MEDS ORDERED: VANCOMYCIN 1,500 MG in SODIUM CHLORIDE 0.9% 500 ML 500 ML IVPB SCH (12:00)
--- NOTE | 2022-06-14 12:16 | P.CONS ---
History of Present Illness - Reason for Consult Consult date: 06/14/22 Abdominal pain, colitis Requesting physician: Kika Jorgensen - Chief Complaint Weakness, sore throat - History of Present Illness This is 76-year-old male with multiple comorbidities who presented to the emergency department with complaints of weakness chills and sore throat. Patient has a past history of lymphoma which she states has been in remission, atrial fibrillation, basal cell carcinoma, and aortic aneurysm. He follows with oncology and gets iron infusions with his last one on Saturday. States he is having weakness, chills, bodyaches, and most of his discomfort is at his throat. He denies any abdominal pain but states that he has some mild discomfort in his lower abdomen. Denies any nausea or vomiting, no diarrhea. No bloody bowel movements. States his last bowel movement was all performed yesterday and that he is regular. On admission he was noted to have leukocytosis, CT of the abdomen and pelvis was completed and reported mild fat stranding changes/inflammation involving the left anterior abdominal fat near the descending colon. Correlate for early colitis. No other findings within the abdomen or pelvis to correlate with infectious/inflammatory process. Inflammation changes around the left kidney could be secondary to #1 correlate w ith urinalysis. No lymphadenopathy identified. Also had a CT of the brain that showed no acute intracranial process, nonspecific white matter changes likely secondary to chronic small vessel ischemic disease. He was started on vancomycin and cefepime with improvement in leukocytosis with a repeat CBC at 19. Again today patient is stating no abdominal pain and some mild lower discomfort no nausea or vomiting, no diarrhea, he is laying in bed with flushed cheeks, ice pack on his forehead and states that it is his throat that is hurting him. Last colonoscopy October [address] Monaco was a screening colonoscopy and normal. Review of Systems REVIEW OF SYSTEMS: CARDIOPULMONARY: No chest pain or shortness of breath. Gastrointestinal: No abdominal pain, states maybe some mild lower abdominal discomfort may be constipation. However he states he had a formed bowel movement yesterday he believes. No nausea or vomiting. No hematemesis, coffee-ground emesis. No rectal bleeding, or melena. GENITOURINARY: No dysuria or hematuria. MUSCULOSKELETAL: Reports normal range of motion., Joint pain. SKIN: No rashes. No jaundice. ENDOCRINE: No chills, fevers. No excessive weight gain or loss. No polydipsia or polyuria. PSYCHIATRIC: Unremarkable. NEUROLOGY: No change in mental status. Denies dizziness, headache. ENT: Vision unremarkable. Complains of sore throat. CONSTITUTIONAL: No recent weight loss. Reports fever, chills, bodyaches, weakness. Past Medical History Past Medical History: Atrial Fibrillation, Cancer, Osteoarthritis (OA) Additional Past Medical History / Comment(s): Mantle Lymphoma, Basal Cell Carcinoma Oct 2012 (in remission), hx Bronchitis. aortic aneurysm History of Any Multi-Drug Resistant Organisms: None Reported Past Surgical History: Hernia Repair, Joint Replacement Additional Past Surgical History / Comment(s): Removal of skin cancer, bone marrow transplant, right knee replacement Past Anesthesia/Blood Transfusion Reactions: No Reported Reaction Past Psychological History: No Psychological Hx Reported Additional Psychological History / Comment(s): Pt resides with his spouse. He has a nebulizer. He is independent. Smoking Status: Never smoker Past Alcohol Use History: None Reported Additional Past Alcohol Use History / Comment(s): Patient is a lifelong nonsmoker, no marijuana, no illicit drug use, he drinks alcohol 2-3 drinks on the weekend. He lives at home with his . 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 He does not require a walker. He does have a nebulizer at home. He does not have oxygen, no CPAP. Past Drug Use History: None Reported - Past Family History Brother(s) Family Medical History: Cancer Additional Family Medical History / Comment(s): . Father Family Medical History: No Reported History Additional Family Medical History / Comment(s): Father was healthy and lived to be 95 yrs old. Mother Family Medical History: Vascular Disorder Additional Family Medical History / Comment(s): Mother at the age of 74 yrs from a ruptured aortic aneurysm. Son(s) Additional Family Medical History / Comment(s): Patient has 2 sons with no major medical problems. Patient doesn't have any sisters. Medications and Allergies Home Medications Medication Instructions Recorded Confirmed Type Apixaban [Eliquis] 5 mg PO BID #60 tab 03/05/19 06/13/22 Rx Flecainide Acetate [Tambocor] 100 mg PO BID 12/17/19 06/13/22 History ALPRAZolam [Xanax] 0.25 mg PO BID PRN 06/13/22 06/13/22 History Albuterol Sulfate [Ventolin HFA] 2 puff INHALATION RT-Q6H PRN 06/13/22 06/13/22 History Azithromycin [Zithromax] 500 mg PO DAILY 06/13/22 06/14/22 History Meloxicam [Mobic] 7.5 mg PO DAILY 06/13/22 06/13/22 History dilTIAZem HCL [Cartia Xt] 120 mg PO HS 06/13/22 06/13/22 History Allergies Allergy/AdvReac Type Severity Reaction Status Date / Time Penicillins Allergy Severe Rash/Hives Verified 06/13/22 19:58 over entire body anidulafungin AdvReac Chest Verified 06/13/22 19:58 Pain/Severe Arm pain with infusion benzonatate AdvReac Dyspnea Verified 06/13/22 19:58 [From Harper Yanze] Physical Exam Vitals: Vital Signs Temp Pulse Pulse Resp BP BP Pulse Ox 06/14/22 10:00 98.8 F 06/14/22 08:59 100.5 F H 06/14/22 07:57 99.4 F 06/14/22 07:15 99.9 F H 101 H 20 150/90 97 06/14/22 01:12 97.9 F 85 14 133/73 96 06/14/22 00:33 98.1 F 81 20 122/73 95 06/14/22 00:00 76 18 118/99 96 06/13/22 23:00 85 18 102/71 96 06/13/22 22:00 89 17 97 06/13/22 21:52 106 H 20 93/54 98 06/13/22 19:53 99.1 F 108 H 18 122/72 96 Intake and Output 06/13/22 06/14/22 06/14/22 22:59 06:59 14:59 Intake Total 1400 Output Total 200 Balance 1400 -200 Intake: Intake, IV Titration 1400 Amount Cefepime 2 gm In Sodium 100 Chloride 0.9% 100 ml @ 25 mls/hr IVPB ONCE [facility] Rx# :[id number] Sodium Chloride 0.9% 1, 800 000 ml @ 100 mls/hr IV . Q10H [facility] Rx#:[id number] Vancomycin 1,500 mg In 500 Sodium Chloride 0.9% 500 ml 500 ml @ 167 mls/hr IVPB Q12H [facility] Rx#: [id number] Output: Urine 200 Other: Voiding Method Toilet Urinal # Voids 2 Weight 86.183 kg 86.183 kg General appearance: The patient is alert, oriented, appears in no acute distress. HET: Head is normocephalic and atraumatic. Conjunctiva pink. Sclera anicteric. Patient is flushed in his cheeks. Neck: Supple without lymphadenopathy. Trachea midline. Heart: S1 S2. Regular rate and rhythm. Lungs: Clear to auscultation. Abdomen: Soft, minimal lower abdominal tenderness, nondistended with bowel sounds. No guarding or rigidity. Skin: No rashes. No jaundice. Extremities: Normal skin color and turgor. No pedal edema. Neurological: No focal deficits. Alert and oriented x3. Results CBC & Chem 7: 06/14/22 07:54 06/14/22 07:54 Labs: Abnormal Lab Results - Last 24 Hours (Table) 06/13/22 06/13/22 06/13/22 Range/Units 21:43 21:43 22:59 WBC 23.6 H (3.8-10.6) k/uL RBC 4.06 L (4.30-5.90) m/uL Hgb 12.7 L (13.0-17.5) gm/dL Hct 38.0 L (39.0-53.0) % Neutrophils # 21.3 H (1.3-7.7) k/uL Haptoglobin (31.2-198.0) mg/dL Fibrinogen (200-500) mg/dL Sodium 134 L (137-145) mmol/L Glucose 132 H (74-99) mg/dL Calcium 8.1 L (8.4-10.2) mg/dL AST 84 H (17-59) U/L ALT 109 H (4-49) U/L Alkaline Phosphatase 282 H (38-126) U/L Total Protein 5.7 L (6.3-8.2) g/dL Albumin 2.9 L (3.5-5.0) g/dL Urine Protein Trace H (Negative) 06/14/22 06/14/22 06/14/22 Range/Units 00:30 00:32 07:54 WBC 19.2 H (3.8-10.6) k/uL RBC 3.80 L (4.30-5.90) m/uL Hgb 11.6 L (13.0-17.5) gm/dL Hct 36.3 L (39.0-53.0) % Neutrophils # 17.3 H (1.3-7.7) k/uL Haptoglobin 537.0 H (31.2-198.0) mg/dL Fibrinogen 819 H (200-500) mg/dL Sodium (137-145) mmol/L Glucose (74-99) mg/dL Calcium (8.4-10.2) mg/dL AST (17-59) U/L ALT (4-49) U/L Alkaline Phosphatase (38-126) U/L Total Protein (6.3-8.2) g/dL Albumin (3.5-5.0) g/dL Urine Protein (Negative) 06/14/22 Range/Units 07:54 WBC (3.8-10.6) k/uL RBC (4.30-5.90) m/uL Hgb (13.0-17.5) gm/dL Hct (39.0-53.0) % Neutrophils # (1.3-7.7) k/uL Haptoglobin (31.2-198.0) mg/dL Fibrinogen (200-500) mg/dL Sodium (137-145) mmol/L Glucose (74-99) mg/dL Calcium 7.9 L (8.4-10.2) mg/dL AST (17-59) U/L ALT (4-49) U/L Alkaline Phosphatase (38-126) U/L Total Protein (6.3-8.2) g/dL Albumin (3.5-5.0) g/dL Urine Protein (Negative) Assessment and Plan (1) Colitis Narrative/Plan: 76-year-old male with a history of lymphoma presented to the emergency department with overall weakness, fever, chills body aches who is known to have a fever of 101 and evidence of leukocytosis. Patient is complaining of sore throat, denies any abdominal pain but states he may have some lower abdominal d iscomfort but his primary concern is his sore throat. Had a CT of the abdomen and pelvis that showed possible beginnings of colitis. Patient denies any diarrhea, no severe abdominal pain nausea or vomiting. Unclear etiology of leukocytosis however have to assume at this point may be related to GI tract infection. Continue IV antibiotics. No plan for an endoscopic evaluation. Continue recommendations from infectious disease and recommendations from hematology. Current Visit: Yes Status: Acute Code(s): K52.9 - NONINFECTIVE GASTROENTERITIS AND COLITIS, UNSPECIFIED SNOMED Code(s): 82658590 (2) Abdominal pain Current Visit: Yes Status: Acute Code(s): R10.9 - UNSPECIFIED ABDOMINAL PAIN SNOMED Code(s): 39925908 (3) Leukocytosis Current Visit: Yes Status: Acute Priority: High Code(s): D72.829 - ELEVATED WHITE BLOOD CELL COUNT, UNSPECIFIED SNOMED Code(s): 664026927 (4) Lymphoma Current Visit: No Status: Acute Code(s): C85.90 - NON-HODGKIN LYMPHOMA, UNSPECIFIED, UNSPECIFIED SITE SNOMED Code(s): 516282691 Plan: 1. Continue symptomatic and supportive care 2. Continue antibiotics per recommendations from infectious disease 3. Continue with recommendations from hematology 4. No further workup from gastroenterology 5. Diet as tolerated Thank you for this consultation, we will continue to follow. Dr. Abigail Monaco I agree with the dictator's note, documented as a scribe by Denia Burleson.
--- NOTE | 2022-06-14 15:03 | P.HPIM ---
History of Present Illness H&P Date: 06/14/22 This is a pleasant 76-year-old male who presented to the emergency department with feelings of weakness along with fevers that have been ongoing since Saturday. Patient did follow with his oncologist Dr. Ochoa in the outpatient setting on May 04 and had blood work showing a mildly elevated white count of 12 and had been feeling generalized weakness and further labs were drawn including iron st udies. reports patient was notified about the low iron recommending an infusion and went and had an IV iron transfusion on Saturday. Patient continued to have worsening symptoms throughout the weekend and persisted with fevers and persistent worsening weakness and encourage the patient to come to the ER for further evaluation. Patient is endorsing some mild abdominal discomfort with possible constipation and denies nausea or vomiting or diarrhea. Patient denies any recent sick contacts but reports this is been ongoing for the last 10 days. Patient reports he followed with his primary care provider Dr. 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 Patient is currently not receiving any active treatment for his lymphoma. Patient did have a chest x-ray here showing no acute cardiopulmonary process in the ER and also underwent a brain CT showing no acute intracranial process with nonspecific white matter changes secondary to chronic small vessel ischemic disease. Patient did have a CT abdomen/pelvis as well showing mild fat stranding changes and inflammation involving the left anterior abdominal fat near the descending colon to correlate for early colitis with no other findings within the abdomen or pelvis to correlate for an infectious or inflammatory process, some inflammation changes around the left kidney that could be secondary to above and to correlate with urinalysis there is no lymphadenopathy identified. Urinalysis was negative and all virology testings including influenza RSV Covid and strep were negative. Patient is having fevers and an elevated white count that was found to be 23.6 on admission. patient was admitted for leukocytosis and possible colitis with infectious disease and oncology on consult. Patient was started on meropenem and cefepime and did receive some fluid boluses in the ER. Lactic acid on admission was 1. Review Of Systems: Constitutional: Reports fever with chills and weakness, fatigue or lethargy. With daytime sleepiness. EENT: No headache. No blurred vision or double vision, no loss of vision. No loss of Hearing, no ringing in the ears, no dizziness. No nasal drainage or congestion. No epistaxis. No sore throat. Lungs: Reports of shortness of breath initially, no cough, no sputum production. No wheezing. Cardiovascular: No chest pain, no lower extremity edema. No palpitations. No paroxysmal nocturnal dyspnea. No orthopnea. No lightheadedness or dizziness. No syncopal episodes. Abdominal: Reports mild diffuse abdominal pain although nonspecific. No nausea, vomiting. No diarrhea. Reports possible constipation. No bloody or tarry stools.. Reports decrease of appetite. Genitourinary: No dysuria, increased frequency, urgency. No urinary retention. Musculoskeletal: myalgias. reports muscle weakness, no gait dysfunction, no frequent falls. No back pain. No neck pain. Integumentary: No wounds, no lesions. No rash or pruritus. No unusual bruising. No change in hair or nails. Neurologic: No aphasia. No facial droop. No change in mentation. No head injury. No headache. No paralysis. No paresthesia. Psychiatric: No depression. No anxiety. No mood swings. Endocrine: No abnormal blood sugars. No weight change. No excessive sweating or thirst. No cold intolerance. PHYSICAL EXAMINATION: GENERAL: The patient is alert and oriented x3, Well developed, well nourished. HEENT: Pupils are round and equally reacting to light. EOMI. no scleral icterus. No conjunctival pallor. Normocephalic, atraumatic. No pharyngeal erythema. No thyromegaly. CARDIOVASCULAR: S1 and S2 muffled PULMONARY: diminished breath sounds bilaterally with no wheezing or rhonchi noted. ABDOMEN: soft. mildly tender on exam. non-distended, normoactive bowel sounds. No palpable organomegaly. MUSCULOSKELETAL: No joint swelling or deformity. EXTREMITIES: No cyanosis, clubbing, or pedal edema. NEUROLOGICAL: Gross neurological examination did not reveal any focal deficits. Diffuse weakness SKIN: No rashes. Flush on the face, currently febrile Assessment: Fever with leukocytosis, possibly secondary to acute pharyngitis, or possibility of early signs of colitis or diverticulitis as noted on CT Sore throat, possible acute pharyngitis Diffuse abdominal pain and CT abdomen showed beginning signs of colitis Recent iron infusion in the outpatient setting last Saturday History of mantle lymphoma History of atrial fibrillation, currently rate controlled History of basal cell carcinoma in 2012, in remission History of aortic aneurysm History bronchitis Lifelong nonsmoker GI prophylaxis DVT prophylaxis Full code Plan: Recommend to continue with current medications and management with infectious disease and oncology consulted and pending Patient was started on cefepime and vancomycin in the ER with leukocytosis Oncology was consulted with history of following with Dr. Ochoa for lymphoma, reports most recent PET scan was clear on 05/25/2022 and is not currently receiving treatment Patient did have low iron studies a week ago with iron saturations of 9 and was instructed to go to the infusion center for an iron infusion and patient subsequently developed fevers with chills and weakness after the infusion and was progressively getting more weak and continued with fevers and was instructed to go to the ER for further evaluation Patient having some mild abdominal pain although more concerned with throat pain and with concerns of possible pharyngitis. Influenza, Covid, RSV, and strep were negative in the ER Will follow-up in monitor labs closely, this morning's white blood count is trending down and currently 19 although patient does continue to have fevers Blood cultures are collected and pending and urine was negative. Will follow-up with repeat labs and will also order pro calcitonin The impression and plan of care has been dictated by Kika Jorgensen, nurse practitioner as directed. Dr. Corin MD I have performed a history and examination and MDM of this patient, discussed the same with the dictator, and agree with the dictator's assessment and plan as written ,documented as a scribe. Based on total visit time, I have performed more than 50% of the visit. Any additional findings or plans will be noted. Past Medical History Past Medical History: Atrial Fibrillation, Cancer, Osteoarthritis (OA) Additional Past Medical History / Comment(s): Mantle Lymphoma, Basal Cell Carcinoma Oct 2012 (in remission), hx Bronchitis. aortic aneurysm History of Any Multi-Drug Resistant Organisms: None Reported Past Surgical History: Hernia Repair, Joint Replacement Additional Past Surgical History / Comment(s): Removal of skin cancer, bone marrow transplant, right knee replacement Past Anesthesia/Blood Transfusion Reactions: No Reported Reaction Past Psychological History: No Psychological Hx Reported Additional Psychological History / Comment(s): Pt resides with his spouse. He has a nebulizer. He is independent. Smoking Status: Never smoker Past Alcohol Use History: None Reported Additional Past Alcohol Use History / Comment(s): Patient is a lifelong nonsmoker, no marijuana, no illicit drug use, he drinks alcohol 2-3 drinks on the weekend. He lives at home with his . 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 He does not require a walker. He does have a nebulizer at home. He does not have oxygen, no CPAP. Past Drug Use History: None Reported - Past Family History Brother(s) Family Medical History: Cancer Additional Family Medical History / Comment(s): . Father Family Medical History: No Reported History Additional Family Medical History / Comment(s): Father was healthy and lived to be 95 yrs old. Mother Family Medical History: Vascular Disorder Additional Family Medical History / Comment(s): Mother at the age of 74 yrs from a ruptured aortic aneurysm. Son(s) Additional Family Medical History / Comment(s): Patient has 2 sons with no major medical problems. Patient doesn't have any sisters. Medications and Allergies Home Medications Medication Instructions Recorded Confirmed Type Apixaban [Eliquis] 5 mg PO BID #60 tab 03/05/19 06/13/22 Rx Flecainide Acetate [Tambocor] 100 mg PO BID 12/17/19 06/13/22 History ALPRAZolam [Xanax] 0.25 mg PO BID PRN 06/13/22 06/13/22 History Albuterol Sulfate [Ventolin HFA] 2 puff INHALATION RT-Q6H PRN 06/13/22 06/13/22 History Azithromycin [Zithromax] 500 mg PO DAILY 06/13/22 06/14/22 History Meloxicam [Mobic] 7.5 mg PO DAILY 06/13/22 06/13/22 History dilTIAZem HCL [Cartia Xt] 120 mg PO HS 06/13/22 06/13/22 History Allergies Allergy/AdvReac Type Severity Reaction Status Date / Time Penicillins Allergy Severe Rash/Hives Verified 06/13/22 19:58 over entire body anidulafungin AdvReac Chest Verified 06/13/22 19:58 Pain/Severe Arm pain with infusion benzonatate AdvReac Dyspnea Verified 06/13/22 19:58 [From Harper Yanez] Physical Exam Vitals: Vital Signs Temp Pulse Pulse Resp BP BP Pulse Ox 06/14/22 08:59 100.5 F H 06/14/22 07:57 99.4 F 06/14/22 07:15 99.9 F H 101 H 20 150/90 97 06/14/22 01:12 97.9 F 85 14 133/73 96 06/14/22 00:33 98.1 F 81 20 122/73 95 06/14/22 00:00 76 18 118/99 96 06/13/22 23:00 85 18 102/71 96 06/13/22 22:00 89 17 97 06/13/22 21:52 106 H 20 93/54 98 06/13/22 19:53 99.1 F 108 H 18 122/72 96 Intake and Output 06/13/22 06/14/22 06/14/22 22:59 06:59 14:59 Intake Total 1400 Output Total 200 Balance 1400 -200 Intake: Intake, IV Titration 1400 Amount Cefepime 2 gm In Sodium 100 Chloride 0.9% 100 ml @ 25 mls/hr IVPB ONCE STA Rx# :[id number] Sodium Chloride 0.9% 1, 800 000 ml @ 100 mls/hr IV . Q10H [facility] Rx#:[id number] Vancomycin 1,500 mg In 500 Sodium Chloride 0.9% 500 ml 500 ml @ 167 mls/hr IVPB Q12H [facility] Rx#: [id number] Output: Urine 200 Other: # Voids 2 Weight 86.183 kg 86.183 kg Results CBC & Chem 7: 06/14/22 07:54 06/14/22 07:54 Labs: Abnormal Lab Results - Last 24 Hours (Table) 06/13/22 06/13/22 06/13/22 Range/Units 21:43 21:43 22:59 WBC 23.6 H (3.8-10.6) k/uL RBC 4.06 L (4.30-5.90) m/uL Hgb 12.7 L (13.0-17.5) gm/dL Hct 38.0 L (39.0-53.0) % Neutrophils # 21.3 H (1.3-7.7) k/uL Fibrinogen (200-500) mg/dL Sodium 134 L (137-145) mmol/L Glucose 132 H (74-99) mg/dL Calcium 8.1 L (8.4-10.2) mg/dL AST 84 H (17-59) U/L ALT 109 H (4-49) U/L Alkaline Phosphatase 282 H (38-126) U/L Total Protein 5.7 L (6.3-8.2) g/dL Albumin 2.9 L (3.5-5.0) g/dL Urine Protein Trace H (Negative) 06/14/22 06/14/22 06/14/22 Range/Units 00:30 07:54 07:54 WBC 19.2 H (3.8-10.6) k/uL RBC 3.80 L (4.30-5.90) m/uL Hgb 11.6 L (13.0-17.5) gm/dL Hct 36.3 L (39.0-53.0) % Neutrophils # 17.3 H (1.3-7.7) k/uL Fibrinogen 819 H (200-500) mg/dL Sodium (137-145) mmol/L Glucose (74-99) mg/dL Calcium 7.9 L (8.4-10.2) mg/dL AST (17-59) U/L ALT (4-49) U/L Alkaline Phosphatase (38-126) U/L Total Protein (6.3-8.2) g/dL Albumin (3.5-5.0) g/dL Urine Protein (Negative) Thrombosis Risk Factor Assmnt - DVT/VTE Prophylaxis DVT/VTE Prophylaxis: Pharmacologic Prophylaxis ordered - Choose All That Apply Each Risk Factor Represents 2 Points: Age 61-74 years Thrombosis Risk Factor Assessment Total Risk Factor Score: 2 Thrombosis Risk Factor Assessment Level: Low Risk Assessment and Plan Time with Patient: Greater than 30
--- NOTE | 2022-06-14 15:45 | P.CONS ---
History of Present Illness - Reason for Consult Consult date: 06/14/22 hx mantle cell lymphoma Requesting physician: Chirag Trent - Chief Complaint fever and weakness - History of Present Illness Patient is a 76-year-old male with a significant history of mantle cell lymphoma. He is a patient of Dr. Gan. He was first evaluated at the hospital by Dr Guzman on 10/2012 when he was admitted for abdominal pain, had a CT scan of abdomen/pelvis on 10/2012 which revealed hepatosplenomegaly,multiple masses within the peritoneal cavity(largest about 4.0x2.2cm)and several mural lesions involving segments of small intestine without obstruction, he also had leukocytosis. CT scan of the chest done on 11/24/2012 showed mildly prominent mediastinal and hilar lymph nodes. Bone marrow biopsy 11/2012 revealed 20% involvement with mantle cell lymphoma (immunoperoxidase positive for CD20 and cyclin D1). Flow cytometry on peripheral blood was consistent with CD5 positive clonal B cell,consistent with mantle cell lymphoma. A PET scan done on revealed suspicious uptake in the lymphadenopathies seen on CT scan. Started Maxi RCHOP on 11/2012. He had R-High dose Marge-c on 01/13/2013. Completing 3 cycle 03/2013 and had [facility] cell transplant [facility]. He had a repeat PET scan at . on 05/24/2014 which revealed no evidence of disease. He had multiple f/u imaging, that were negative for disease, until 08/2020, biopsy of left maxilla lesions was Positive for mantle cell lymphoma. He received XRT for left maxilla lesion and completed 10/2020. Repeat PET scans and bone marrow biopsy were negative for disease. He has also been receiving iron infusions at our clinic for EMMA, last infusion of Feraheme was on 06/08/22. Iron studies on 06/06/22 revealed iron 23, iron sat 9%, ferritin 745. Patient presented to the ER for generalized weakness and fevers ongoing for the last 5 or 6 days. Patient is also reporting mild lower abdominal discomfort. He denies nausea vomiting diarrhea. Denies blood in stool. He is also comp laining of sore throat over the last couple days in odynophagia. He denies cough. Denies any sick contacts. Flu, RSV, Covid, and strep PCR are negative. Hemoglobin 11.6, WBC 19.2, platelets 370,000. Tmax 100.5. CT abdomen/pelvis revealed Mild fat stranding changes/inflammation involving the left anterior abdominal fat near the descending colon. Correlate for early colitis. No other finding within the abdomen or pelvis to correlate with infectious inflammatory process. Inflammation changes around the left kidney could be secondary to #1. Correlate with urinalysis. No lymphadenopathy identified. Patient started on cefepime and vancomycin. UA negative for acute infection. Review of Systems 10 point ROS is negative except as stated in HPI Past Medical History Past Medical History: Atrial Fibrillation, Cancer, Osteoarthritis (OA) Additional Past Medical History / Comment(s): Mantle Lymphoma, Basal Cell Carcinoma Oct 2012 (in remission), hx Bronchitis. aortic aneurysm History of Any Multi-Drug Resistant Organisms: None Reported Past Surgical History: Hernia Repair, Joint Replacement Additional Past Surgical History / Comment(s): Removal of skin cancer, bone marrow transplant, right knee replacement Past Anesthesia/Blood Transfusion Reactions: No Reported Reaction Past Psychological History: No Psychological Hx Reported Additional Psychological History / Comment(s): Pt resides with his spouse. He has a nebulizer. He is independent. Smoking Status: Never smoker Past Alcohol Use History: None Reported Additional Past Alcohol Use History / Comment(s): Patient is a lifelong nonsmoker, no marijuana, no illicit drug use, he drinks alcohol 2-3 drinks on the weekend. He lives at home with his . 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 He does not require a walker. He does have a nebulizer at home. He does not have oxygen, no CPAP. Past Drug Use History: None Reported - Past Family History Brother(s) Family Medical History: Cancer Additional Family Medical History / Comment(s): . Father Family Medical History: No Reported History Additional Family Medical History / Comment(s): Father was healthy and lived to be 95 yrs old. Mother Family Medical History: Vascular Disorder Additional Family Medical History / Comment(s): Mother at the age of 74 yrs from a ruptured aortic aneurysm. Son(s) Additional Family Medical History / Comment(s): Patient has 2 sons with no major medical problems. Patient doesn't have any sisters. Medications and Allergies Home Medications Medication Instructions Recorded Confirmed Type Apixaban [Eliquis] 5 mg PO BID #60 tab 03/05/19 06/13/22 Rx Flecainide Acetate [Tambocor] 100 mg PO BID 12/17/19 06/13/22 History ALPRAZolam [Xanax] 0.25 mg PO BID PRN 06/13/22 06/13/22 History Albuterol Sulfate [Ventolin HFA] 2 puff INHALATION RT-Q6H PRN 06/13/22 06/13/22 History Azithromycin [Zithromax] 500 mg PO DAILY 06/13/22 06/14/22 History Meloxicam [Mobic] 7.5 mg PO DAILY 06/13/22 06/13/22 History dilTIAZem HCL [Cartia Xt] 120 mg PO HS 06/13/22 06/13/22 History Allergies Allergy/AdvReac Type Severity Reaction Status Date / Time Penicillins Allergy Severe Rash/Hives Verified 06/13/22 19:58 over entire body anidulafungin AdvReac Chest Verified 06/13/22 19:58 Pain/Severe Arm pain with infusion benzonatate AdvReac Dyspnea Verified 06/13/22 19:58 [From Harper Yanez] Physical Exam Vitals: Vital Signs Temp Pulse Pulse Resp BP BP Pulse Ox 06/14/22 10:00 98.8 F 06/14/22 08:59 100.5 F H 06/14/22 07:57 99.4 F 06/14/22 07:15 99.9 F H 101 H 20 150/90 97 06/14/22 01:12 97.9 F 85 14 133/73 96 06/14/22 00:33 98.1 F 81 20 122/73 95 06/14/22 00:00 76 18 118/99 96 06/13/22 23:00 85 18 102/71 96 06/13/22 22:00 89 17 97 06/13/22 21:52 106 H 20 93/54 98 06/13/22 19:53 99.1 F 108 H 18 122/72 96 Intake and Output 06/14/22 06/14/22 06/14/22 06:59 14:59 22:59 Intake Total 1400 Output Total 200 Balance 1400 -200 Intake: Intake, IV Titration 1400 Amount Cefepime 2 gm In Sodium 100 Chloride 0.9% 100 ml @ 25 mls/hr IVPB ONCE STA Rx# :[id number] Sodium Chloride 0.9% 1, 800 000 ml @ 100 mls/hr IV . Q10H STA Rx#:[id number] Vancomycin 1,500 mg In 500 Sodium Chloride 0.9% 500 ml 500 ml @ 167 mls/hr IVPB Q12H [facility] Rx#: [id number] Output: Urine 200 Other: Voiding Method Toilet Urinal # Voids 2 Weight 86.183 kg - Constitutional General appearance: average body habitus, no acute distress - EENT Eyes: anicteric sclerae, EOMI ENT: hearing grossly normal, pharyngeal erythema - Neck Neck: no lymphadenopathy - Respiratory Respiratory: bilateral: CTA - Cardiovascular Rhythm: regular Heart sounds: normal: S1, S2 Abnormal Heart Sounds: no systolic murmur, no diastolic murmur, no rub, no S3 Gallop, no S4 Gallop, no click, no other - Gastrointestinal General gastrointestinal: soft, tenderness Localized gastrointestinal: mass: LLQ - Musculoskeletal Musculoskeletal: strength equal bilaterally - Psychiatric Psychiatric: A&O x's 3, appropriate affect, intact judgment & insight Results CBC & Chem 7: 06/14/22 07:54 06/14/22 07:54 Labs: Abnormal Lab Results - Last 24 Hours (Table) 06/13/22 06/13/22 06/13/22 Range/Units 21:43 21:43 22:59 WBC 23.6 H (3.8-10.6) k/uL RBC 4.06 L (4.30-5.90) m/uL Hgb 12.7 L (13.0-17.5) gm/dL Hct 38.0 L (39.0-53.0) % Neutrophils # 21.3 H (1.3-7.7) k/uL Haptoglobin (31.2-198.0) mg/dL Fibrinogen (200-500) mg/dL Sodium 134 L (137-145) mmol/L Glucose 132 H (74-99) mg/dL Calcium 8.1 L (8.4-10.2) mg/dL AST 84 H (17-59) U/L ALT 109 H (4-49) U/L Alkaline Phosphatase 282 H (38-126) U/L Total Protein 5.7 L (6.3-8.2) g/dL Albumin 2.9 L (3.5-5.0) g/dL Urine Protein Trace H (Negative) 06/14/22 06/14/22 06/14/22 Range/Units 00:30 00:32 07:54 WBC 19.2 H (3.8-10.6) k/uL RBC 3.80 L (4.30-5.90) m/uL Hgb 11.6 L (13.0-17.5) gm/dL Hct 36.3 L (39.0-53.0) % Neutrophils # 17.3 H (1.3-7.7) k/uL Haptoglobin 537.0 H (31.2-198.0) mg/dL Fibrinogen 819 H (200-500) mg/dL Sodium (137-145) mmol/L Glucose (74-99) mg/dL Calcium (8.4-10.2) mg/dL AST (17-59) U/L ALT (4-49) U/L Alkaline Phosphatase (38-126) U/L Total Protein (6.3-8.2) g/dL Albumin (3.5-5.0) g/dL Urine Protein (Negative) 06/14/22 Range/Units 07:54 WBC (3.8-10.6) k/uL RBC (4.30-5.90) m/uL Hgb (13.0-17.5) gm/dL Hct (39.0-53.0) % Neutrophils # (1.3-7.7) k/uL Haptoglobin (31.2-198.0) mg/dL Fibrinogen (200-500) mg/dL Sodium (137-145) mmol/L Glucose (74-99) mg/dL Calcium 7.9 L (8.4-10.2) mg/dL AST (17-59) U/L ALT (4-49) U/L Alkaline Phosphatase (38-126) U/L Total Protein (6.3-8.2) g/dL Albumin (3.5-5.0) g/dL Urine Protein (Negative) CT scan - abdomen: report reviewed CT scan - pelvis: report reviewed Assessment and Plan (1) Iron deficiency anemia Current Visit: Yes Status: Acute Priority: Medium Code(s): D50.9 - IRON DEFICIENCY ANEMIA, UNSPECIFIED SNOMED Code(s): 20306344 (2) Colitis Current Visit: Yes Status: Acute Priority: High Code(s): K52.9 - NONINFECTIVE GASTROENTERITIS AND COLITIS, UNSPECIFIED SNOMED Code(s): 32265028 (3) Mantle cell lymphoma Current Visit: No Status: Chronic Priority: Medium Code(s): C83.10 - MANTLE CELL LYMPHOMA, UNSPECIFIED SITE SNOMED Code(s): 168594885 Plan: Colitis: -CT abdomen/pelvis revealed Mild fat stranding changes/inflammation involving the left anterior abdominal fat near the descending colon. Correlate for early colitis. No other finding within the abdomen or pelvis to correlate with infectious inflammatory process. Inflammation changes around the left kidney could be secondary to #1. Correlate with urinalysis. No lymphadenopathy identified. Patient started on cefepime and vancomycin. -ID following -WBC 19.2, likely reactive to acute infectious process -T max 100.5. Flu, RSV, COVID and strep negative -Defer management to ID/IM team EMMA: -Hx of EMMA -Received last infusion of Feraheme on 06/08/22. Iron studies on 06/06/22 revealed iron 23, iron sat 9%, ferritin 745. -Will hold iron infusions at this time, due to acute infectious process Hx mantle cell lymphoma: -Dx 2012. Stem cell transplant at [facility] on 05/04/2013 -Recurrence in 2020, received XRT -ADRIÁN on repeat imaging/bone marrow biopsy attests: I have performed H&P and developed impression and plan of care for patient, discussed with dictator. I agree with dictated note, document as a scribe
[2022-06-14] MEDS: metroNIDAZOLE-NS PMX 500 MG in SALINE 1 100ML.BAG IVPB SCH ×2 (16:54→23:16)
[2022-06-14] MEDS: DILTIAZEM CD 120 MG CAP.ER.24H PO SCH (20:18)
--- NOTE | 2022-06-14 22:54 | P.CONS ---
History of Present Illness - Reason for Consult Consult date: 06/14/22 Leukocytosis Requesting physician: Chirag Trent - Chief Complaint Mental status changes x one day - History of Present Illness Patient is a 76-year-old male with a past medical history significant for lymphoma currently in remission and recently received an iron transfusion presenting to the hospital with symptoms of some mental status changes the patient also complaining of sore throat and lower abdominal discomfort described the pain to be more of a discomfort rather dull aching pain mild did not quantify as for his intensity 1-10, and no radiation some nausea but no vomiting and did have constipation patient on presentation to the hospital did have a low-grade fever apparently the patient did have a fever of 101 at home and did have fever 100.5 F this morning patient did have a white count of 23.6 with a left shift kidney function has been normal liver enzymes are mildly elevated urine has been negative influenza RSV and COVID testing was negative patient did have a chest x-ray no acute cardiopulmonary disease CT abdominal pelvis mild fat stranding changes involving the left anterior abdominal fat near the descending colon correlate for early colitis inflammatory changes around the left kidney could be secondary to #1 patient however did have a negative UA patient was started on cefepime infectious disease was consulted for further management of antibiotic therapy has also received a dose of vancomycin in the ER yesterday Review of Systems Positive point and negatives has been mentioned in the HPI, complete review of systems was performed and all other systems are negative Past Medical History Past Medical History: Atrial Fibrillation, Cancer, Osteoarthritis (OA) Additional Past Medical History / Comment(s): Mantle Lymphoma, Basal Cell Carcinoma Oct 2012 (in remission), hx Bronchitis. aortic aneurysm History of Any Multi-Drug Resistant Organisms: None Reported Past Surgical History: Hernia Repair, Joint Replacement Additional Past Surgical History / Comment(s): Removal of skin cancer, bone marrow transplant, right knee replacement Past Anesthesia/Blood Transfusion Reactions: No Reported Reaction Past Psychological History: No Psychological Hx Reported Additional Psychological History / Comment(s): Pt resides with his spouse. He has a nebulizer. He is independent. Smoking Status: Never smoker Past Alcohol Use History: None Reported Additional Past Alcohol Use History / Comment(s): Patient is a lifelong nonsmoker, no marijuana, no illicit drug use, he drinks alcohol 2-3 drinks on the weekend. He lives at home with his . 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 He does not require a walker. He does have a nebulizer at home. He does not have oxygen, no CPAP. Past Drug Use History: None Reported - Past Family History Brother(s) Family Medical History: Cancer Additional Family Medical History / Comment(s): . Father Family Medical History: No Reported History Additional Family Medical History / Comment(s): Father was healthy and lived to be 95 yrs old. Mother Family Medical History: Vascular Disorder Additional Family Medical History / Comment(s): Mother at the age of 74 yrs from a ruptured aortic aneurysm. Son(s) Additional Family Medical History / Comment(s): Patient has 2 sons with no major medical problems. Patient doesn't have any sisters. Medications and Allergies Home Medications Medication Instructions Recorded Confirmed Type Apixaban [Eliquis] 5 mg PO BID #60 tab 03/05/19 06/13/22 Rx Flecainide Acetate [Tambocor] 100 mg PO BID 12/17/19 06/13/22 History ALPRAZolam [Xanax] 0.25 mg PO BID PRN 06/13/22 06/13/22 History Albuterol Sulfate [Ventolin HFA] 2 puff INHALATION RT-Q6H PRN 06/13/22 06/13/22 History dilTIAZem HCL [Cartia Xt] 120 mg PO HS 06/13/22 06/13/22 History Acetaminophen Tab [Tylenol] 650 mg PO Q6HR PRN tab 06/26/22 Rx Ertapenem [INVanz] 1 gm IVPB ONCE 10 Days #10 each 06/26/22 Rx Allergies Allergy/AdvReac Type Severity Reaction Status Date / Time Penicillins Allergy Severe Rash/Hives Verified 06/13/22 19:58 over entire body anidulafungin AdvReac Chest Verified 06/13/22 19:58 Pain/Severe Arm pain with infusion benzonatate AdvReac Dyspnea Verified 06/13/22 19:58 [From Harper Yanez] Physical Exam Vitals: Vital Signs Temp Pulse Pulse Resp BP BP Pulse Ox 06/14/22 10:00 98.8 F 06/14/22 08:59 100.5 F H 06/14/22 07:57 99.4 F 06/14/22 07:15 99.9 F H 101 H 20 150/90 97 06/14/22 01:12 97.9 F 85 14 133/73 96 06/14/22 00:33 98.1 F 81 20 122/73 95 06/14/22 00:00 76 18 118/99 96 06/13/22 23:00 85 18 102/71 96 06/13/22 22:00 89 17 97 06/13/22 21:52 106 H 20 93/54 98 06/13/22 19:53 99.1 F 108 H 18 122/72 96 Intake and Output 06/13/22 06/14/22 06/14/22 22:59 06:59 14:59 Intake Total 1400 Output Total 200 Balance 1400 -200 Intake: Intake, IV Titration 1400 Amount Cefepime 2 gm In Sodium 100 Chloride 0.9% 100 ml @ 25 mls/hr IVPB ONCE STA Rx# :[id number] Sodium Chloride 0.9% 1, 800 000 ml @ 100 mls/hr IV . Q10H STA Rx#:[id number] Vancomycin 1,500 mg In 500 Sodium Chloride 0.9% 500 ml 500 ml @ 167 mls/hr IVPB Q12H [facility] Rx#: [id number] Output: Urine 200 Other: Voiding Method Toilet Urinal # Voids 2 Weight 86.183 kg 86.183 kg GENERAL DESCRIPTION: Elderly male lying in bed, no distress. No tachypnea or accessory muscle of respiration use. HEENT: Shows Pallor , no scleral icterus. Oral mucous membrane is dry. NECK: Trachea central, no thyromegaly. LUNGS: Unlabored breathing. Clear to auscultation anteriorly. HEART: S1, S2, regular rate and rhythm. No loud murmur ABDOMEN: Soft, mild distention but no tenderness EXTREMITIES: No edema of feet. SKIN: No rash, no masses palpable. NEUROLOGICAL: The patient is awake, alert, oriented x3, mood and affect normal. Results CBC & Chem 7: 06/26/22 05:49 06/26/22 05:49 Labs: Abnormal Lab Results - Last 24 Hours (Table) 06/13/22 06/13/22 06/13/22 Range/Units 21:43 21:43 22:59 WBC 23.6 H (3.8-10.6) k/uL RBC 4.06 L (4.30-5.90) m/uL Hgb 12.7 L (13.0-17.5) gm/dL Hct 38.0 L (39.0-53.0) % Neutrophils # 21.3 H (1.3-7.7) k/uL Haptoglobin (31.2-198.0) mg/dL Fibrinogen (200-500) mg/dL Sodium 134 L (137-145) mmol/L Glucose 132 H (74-99) mg/dL Calcium 8.1 L (8.4-10.2) mg/dL AST 84 H (17-59) U/L ALT 109 H (4-49) U/L Alkaline Phosphatase 282 H (38-126) U/L Total Protein 5.7 L (6.3-8.2) g/dL Albumin 2.9 L (3.5-5.0) g/dL Urine Protein Trace H (Negative) 06/14/22 06/14/22 06/14/22 Range/Units 00:30 00:32 07:54 WBC 19.2 H (3.8-10.6) k/uL RBC 3.80 L (4.30-5.90) m/uL Hgb 11.6 L (13.0-17.5) gm/dL Hct 36.3 L (39.0-53.0) % Neutrophils # 17.3 H (1.3-7.7) k/uL Haptoglobin 537.0 H (31.2-198.0) mg/dL Fibrinogen 819 H (200-500) mg/dL Sodium (137-145) mmol/L Glucose (74-99) mg/dL Calcium (8.4-10.2) mg/dL AST (17-59) U/L ALT (4-49) U/L Alkaline Phosphatase (38-126) U/L Total Protein (6.3-8.2) g/dL Albumin (3.5-5.0) g/dL Urine Protein (Negative) 06/14/22 Range/Units 07:54 WBC (3.8-10.6) k/uL RBC (4.30-5.90) m/uL Hgb (13.0-17.5) gm/dL Hct (39.0-53.0) % Neutrophils # (1.3-7.7) k/uL Haptoglobin (31.2-198.0) mg/dL Fibrinogen (200-500) mg/dL Sodium (137-145) mmol/L Glucose (74-99) mg/dL Calcium 7.9 L (8.4-10.2) mg/dL AST (17-59) U/L ALT (4-49) U/L Alkaline Phosphatase (38-126) U/L Total Protein (6.3-8.2) g/dL Albumin (3.5-5.0) g/dL Urine Protein (Negative) Assessment and Plan (1) Febrile illness Current Visit: Yes Status: Acute Code(s): R50.9 - FEVER, UNSPECIFIED SNOMED Code(s): 493112845 (2) Leukocytosis Current Visit: Yes Status: Acute Priority: High Code(s): D72.829 - ELEVATED WHITE BLOOD CELL COUNT, UNSPECIFIED SNOMED Code(s): 802609984 Plan: 1patient presented to hospital with fever did have elevated white count with abdominal pain and constipation meeting criteria for sepsis source is likely col itis/diverticulitis and need to cover for enteric gram-negative both anaerobes and anaerobes, abnormality to the left kidney described on the CT however the patient did have a negative UA and no urinary symptoms 2-patient with a penicillin allergy that would limit the number of antibiotics safe to use 3-patient to continue with cefepime however we will add Flagyl to cover for anaerobes We will follow on clinical condition and cultures to further adjust medication if needed Thank you for this consultation we will follow the patient along with you Time with Patient: Greater than 30
[2022-06-15] MEDS: APIXABAN 5 MG TAB PO SCH ×2 (08:19→20:18)
[2022-06-15] MEDS: FLECAINIDE 50 MG TAB PO SCH ×2 (08:24→20:18)
[2022-06-15] MEDS: CEFEPIME 2 GM in SODIUM CHLORIDE 0.9% 100 ML IVPB SCH ×3 (08:50→23:15)
[2022-06-15] MEDS: metroNIDAZOLE-NS PMX 500 MG in SALINE 1 100ML.BAG IVPB SCH ×3 (08:50→23:16)
--- NOTE | 2022-06-15 09:05 | CDI ---
Documentation Clarification Form Date: 06/15/2022 8:26:15 AM From: Jessica Guzman RN CCDS Phone: [phone] Admit Date: 06/13/2022 11:39:00 PM Patient Name: Sreedhar Jackson Visit Number: [id number] Discharge Date: ATTENTION: The Clinical Documentation Specialists (CDI) and [facility] Coding Staff appreciate your assistance in clarifying documentation. Please respond to the clarification below the line at the bottom and electronically sign. The CDI & [facility] Coding staff will review the response and follow-up if needed. Please note: Queries are made part of the Legal Health Record. If you have any questions, please contact the author of this message via ITS. Dr. Judy Rivera Sepsis is documented in the ID consult, 06/14, but not noted in subsequent documentation. Clarification is requested. History/Risk Factors: 76 year old male presents to the ED with weakness and fevers since last Saturday. Medical History: Atrial Fibrillation, Mantle Lymphoma, basal cell carcinoma and OA. Clinical Indicators: Labs: 06/13 Wbc 23.6; neutrophils 21.3; Vitals signs: 06/13 B/P 122/72; 108; 99.1 F Oral; 18; SpO2 96% room air CT abd/pelv: 06/13 Mild fat stranding changes/inflammation involving the left anterior abdominal fat near descending colon. Inflammation changes around the left kidney could be secondary to above. ID Consult: 06/14 patient presented to hospital with fever did have elevated white count with abdominal pain and constipation meeting criteria for Sepsis source is likely colitis/diverticulitis and need to cover for enteric gram negative both anerobes. Treatment: ID Consult: See above Antibiotics: 06/13 Cefepime IVPB x 1; 06/13 Vancomycin IVPB x 1; 06/14 Cefepime IVPB Q8; 06/14 Vancomycin IVPB x 1; 06/14 Metronidazole IVPB Q8HR IV Bolus:0.9NS 1L bolus x 2 Is there an additional diagnosis that is clinically appropriate for this patient? [ ] Sepsis, present on admission [ ] Sepsis ruled out [ ] Other, please specify [ ] Unable to determine SIRS Criteria: 2 or more of the following may indicate SIRS Temperature < 96.8F (36C) or > 101.0F (38.3C) Heart Rate > 90 bpm Respiratory Rate > 20 breaths/min or PaCO2 < 32 mmHg White Blood Cell Count > 12,000 or < 4,000 cells/mm3 or > 10% bands Documented in Medicine progress note 06/16 Dr. Coombs/ Cameron Jorgensen [employer] Fever with leukocytosis, possibly secondary to acute pharyngitis, or possibility of early signs of colitis or diverticulitis as noted on CT. Features of sepsis present on admission, including fevers and leukocytosis, (Template Last Reviewed: February 2022) RADHAD
--- NOTE | 2022-06-15 09:42 | P.PN ---
Subjective Progress Note Date: 06/15/22 Principal diagnosis: Leukocytosis, colitis This is 76-year-old male with multiple comorbidities who presented to the emergency department with complaints of weakness chills and sore throat. Patient has a past history of lymphoma which she states has been in remission, atrial fibrillation, basal cell carcinoma, and aortic aneurysm. He follows with oncology and gets iron infusions with his last one on Saturday. States he is having weakness, chills, bodyaches, and most of his discomfort is at his throat. He denies any abdominal pain but states that he has some mild discomfort in his lower abdomen. Denies any nausea or vomiting, no diarrhea. No bloody bowel movements. States his last bowel movement was all performed yesterday and that he is regular. On admission he was noted to have leukocytosis, CT of the abdomen and pelvis was completed and reported mild fat stranding changes/inflammation involving the left anterior abdominal fat near the descending colon. Correlate for early colitis. No other findings within the abdomen or pelvis to correlate with infectious/inflammatory process. Inflammation changes around the left kidney could be secondary to #1 correlate with urinalysis. No lymphadenopathy identified. Also had a CT of the brain that showed no acute intracranial process, nonspecific white matter changes likely secondary to chronic small vessel ischemic disease. He was started on vancomycin and cefepime with improvement in leukocytosis with a repeat CBC at 19. Again today patient is stating no abdominal pain and some mild lower discomfort no nausea or vomiting, no diarrhea, he is laying in bed with flushed cheeks, ice pack on his forehead and states that it is his throat that is hurting him. Last colonoscopy October [address] Monaco was a screening colonoscopy and normal. 06/15/2022: Patient is seen and examined today as a follow-up for leukocytosis and colitis seen on CAT scan. Patient states he has no abdominal pain, no nause a or vomiting. No diarrhea. He is afebrile. Labs are currently pending. He is being followed by infectious disease. He remains on cefepime, vancomycin was discontinued and Flagyl was started. Objective - Vital Signs Vital signs: Vital Signs Temp 98.1 F 06/15/22 00:51 Pulse 74 06/15/22 00:51 Resp 15 06/15/22 00:51 BP 105/55 06/15/22 00:51 Pulse Ox 93 L 06/15/22 00:51 FiO2 Intake & Output 06/14/22 06/14/22 06/15/22 06:59 18:59 06:59 Intake Total 1400 Output Total 200 100 Balance 1400 -200 -100 Weight 86.183 kg Intake: Intake, IV Titration 1400 Amount Cefepime 2 gm In Sodium 100 Chloride 0.9% 100 ml @ 25 mls/hr IVPB ONCE STA Rx# :[id number] Sodium Chloride 0.9% 1, 800 000 ml @ 100 mls/hr IV . Q10H STA Rx#:[id number] Vancomycin 1,500 mg In 500 Sodium Chloride 0.9% 500 ml 500 ml @ 167 mls/hr IVPB Q12H [facility] Rx#: [id number] Output: Urine 200 100 Other: Voiding Method Toilet Toilet Urinal Urinal # Voids 2 - Exam General appearance: The patient is alert, oriented, appears in no acute distress. HET: Head is normocephalic and atraumatic. Conjunctiva pink. Sclera anicteric. Neck: Supple without lymphadenopathy. Abdomen: Soft, nontender, nondistended with bowel sounds. No guarding or rigidity. Extremities: Normal skin color and turgor. No pedal edema Skin: No rashes, no jaundice Neurological: No focal deficits. Alert and oriented. - Labs CBC & Chem 7: 06/14/22 07:54 06/14/22 07:54 Labs: Abnormal Lab Results - Last 24 Hours (Table) 06/14/22 06/14/22 06/14/22 Range/Units 00:32 07:54 07:54 WBC 19.2 H (3.8-10.6) k/uL RBC 3.80 L (4.30-5.90) m/uL Hgb 11.6 L (13.0-17.5) gm/dL Hct 36.3 L (39.0-53.0) % Neutrophils # 17.3 H (1.3-7.7) k/uL Haptoglobin 537.0 H (31.2-198.0) mg/dL Calcium 7.9 L (8.4-10.2) mg/dL Procalcitonin (0.02-0.09) ng/mL 06/14/22 Range/Units 07:54 WBC (3.8-10.6) k/uL RBC (4.30-5.90) m/uL Hgb (13.0-17.5) gm/dL Hct (39.0-53.0) % Neutrophils # (1.3-7.7) k/uL Haptoglobin (31.2-198.0) mg/dL Calcium (8.4-10.2) mg/dL Procalcitonin 0.36 H (0.02-0.09) ng/mL Assessment and Plan (1) Colitis Narrative/Plan: 76-year-old male with a history of lymphoma presented to the emergency department with overall weakness, fever, chills body aches who is known to have a fever of 101 and evidence of leukocytosis. Patient is complaining of sore throat, denies any abdominal pain but states he may have some lower abdominal discomfort but his primary concern is his sore throat. Had a CT of the abdomen and pelvis that showed possible beginnings of colitis. Patient denies any diarrhea, no severe abdominal pain nausea or vomiting. Unclear etiology of leukocytosis however have to assume at this point may be related to GI tract infection. Continue IV antibiotics. No plan for an endoscopic evaluation. Continue recommendations from infectious disease and recommendations from hematology. Current Visit: Yes Status: Acute Priority: High Code(s): K52.9 - NONINFECTIVE GASTROENTERITIS AND COLITIS, UNSPECIFIED SNOMED Code(s): 53105540 (2) Abdominal pain Narrative/Plan: 76-year-old male with a history of lymphoma presented to the emergency department with overall weakness, fever, chills body aches who is known to have a fever of 101 and evidence of leukocytosis. Patient is complaining of sore throat, denies any abdominal pain but states he may have some lower abdominal discomfort but his primary concern is his sore throat. Had a CT of the abdomen and pelvis that showed possible beginnings of colitis. Patient denies any diarrhea, no severe abdominal pain nausea or vomiting. Unclear etiology of leukocytosis. No plan for an endoscopic evaluation. Continue recommendations from infectious disease and recommendations from hematology. Current Visit: Yes Status: Acute Code(s): R10.9 - UNSPECIFIED ABDOMINAL PAIN SNOMED Code(s): 00290634 (3) Leukocytosis Current Visit: Yes Status: Acute Priority: High Code(s): D72.829 - E LEVATED WHITE BLOOD CELL COUNT, UNSPECIFIED SNOMED Code(s): 144999634 (4) Lymphoma Current Visit: No Status: Acute Code(s): C85.90 - NON-HODGKIN LYMPHOMA, UNSPECIFIED, UNSPECIFIED SITE SNOMED Code(s): 536152191 Plan: 1. Continue symptomatic and supportive care 2. Continue antibiotics per recommendations from infectious disease 3. Continue with recommendations from hematology 4. No further workup from gastroenterology 5. Diet as tolerated Thank you for this consultation, we will sign off at this time. Patient can follow-up with gastroenterology as needed. Dr. Abigail Monaco I agree with the dictator's note, documented as a scribe by Denia Burleson.
[2022-06-15 10:47] LABS: Basophils # (A) 0.06 X 10*3/uL (0.00-0.10); Basophils % (A) 0.3 %; Eosinophils # (A) 0.26 X 10*3/uL (0.04-0.35); Eosinophils % (A) 1.4 %; HCT 33.8 % (39.6-50.0); HGB 10.3 g/dL (13.0-17.0); Immature Grans, Automated 0.5 %; Lymphocytes % (A) 9.7 %; MCH 29.7 pg (27.0-32.0); MCHC 30.5 g/dL (32.0-37.0); MCV 97.4 fL (80.0-97.0); Mean Platelet Volume 10.9 fL (9.5-12.2); Monocytes # (A) 0.45 X 10*3/uL (0.20-1.00); Monocytes % (A) 2.4 %; NRBC Per 100 WBC 0 /100 WBCS (0.0-0.0); Neutrophils # (A) 15.89 X 10*3/uL (1.80-7.70); Neutrophils % (A) 85.7 %; Platelet Count 342 X 10*3/uL (140-440); RBC 3.47 X 10*6/uL (4.40-5.60); RDW 14.5 % (11.5-14.5); WBC 18.56 X 10*3/uL (4.50-10.00)
[2022-06-15] MEDS ORDERED: VANCOMYCIN TROUGH DUE 1 EACH MISC MISCELLANE ONE (11:00)
[2022-06-15 11:05] LABS: African American GFR (CKD) 97.2 (60.0-200.0); Anion Gap 9.1 mmol/L (10.00-18.00); BUN/Creat Ratio 15.22 Ratio (12.00-20.00); Blood Urea Nitrogen 13.7 mg/dL (9.0-27.0); Calcium 8.2 mg/dL (8.7-10.3); Carbon Dioxide 26.9 mmol/L (20.0-27.5); Non-African American GFR(CKD) 83.8 (60.0-200.0)
[2022-06-15 11:54] LABS: African American GFR (CKD) >90 (>60 ml/min/1.73 sqM); Non-African American GFR(CKD) >90 (>60 ml/min/1.73 sqM)
--- NOTE | 2022-06-15 13:13 | P.PN ---
Subjective Progress Note Date: 06/15/22 Principal diagnosis: Fever/colitis Patient is a 76-year-old male with a past medical history significant for lymphoma currently in remission and recently received an iron transfusion presenting to the hospital with symptoms of some mental status changes the patient also complaining of sore throat and lower abdominal discomfort, patient did have a CT abdominal pelvis suspicious for colitis involving the sigmoid region. On today's evaluation that is 06/15/2022, the patient denies having any fever or chills, the patient abdominal discomfort has improved denies having any nausea no vomiting no chest pain shortness of breath or cough no urinary symptoms Objective - Vital Signs Vital signs: Vital Signs Temp 97.6 F 06/15/22 12:13 Pulse 70 06/15/22 12:13 Resp 18 06/15/22 12:13 BP 116/70 06/15/22 12:13 Pulse Ox 97 06/15/22 12:13 FiO2 Intake & Output 06/14/22 06/15/22 06/15/22 18:59 06:59 18:59 Output Total 200 100 Balance -200 -100 Output: Urine 200 100 Other: Voiding Method Toilet Toilet Toilet Urinal Urinal Urinal - Exam GENERAL DESCRIPTION: An elderly male lying in bed in no distress RESPIRATORY SYSTEM: Unlabored breathing , decreased breath sounds at bases HEART: S1 S2 regular rate and rhythm , ABDOMEN: Soft , no tenderness EXTREMITIES: No edema feet - Labs CBC & Chem 7: 06/15/22 06:22 06/15/22 10:35 Labs: Abnormal Lab Results - Last 24 Hours (Table) 06/14/22 06/15/22 06/15/22 Range/Units 07:54 06:22 06:22 WBC 18.56 H (4.50-10.00) X 10*3/uL RBC 3.47 L (4.40-5.60) X 10*6/uL Hgb 10.3 L (13.0-17.0) g/dL Hct 33.8 L (39.6-50.0) % MCV 97.4 H (80.0-97.0) fL MCHC 30.5 L (32.0-37.0) g/dL Immature Gran # 0.10 H (0.00-0.04) X 10*3/uL Neutrophils # 15.89 H (1.80-7.70) X 10*3/uL Anion Gap 9.10 L (10.00-18.00) mmol/L Calcium 8.2 L (8.7-10.3) mg/dL Procalcitonin 0.36 H (0.02-0.09) ng/mL Microbiology - Last 24 Hours (Table) 06/13/22 23:40 Blood Culture - Preliminary Blood 06/13/22 23:17 Blood Culture - Preliminary Blood Assessment and Plan (1) Colitis Current Visit: Yes Status: Acute Priority: High Code(s): K52.9 - NONINFECTIVE GASTROENTERITIS AND COLITIS, UNSPECIFIED SNOMED Code(s): 85894187 (2) Febrile illness Current Visit: Yes Status: Acute Code(s): R50.9 - FEVER, UNSPECIFIED SNOMED Code(s): 181564565 Plan: 1patient presented to hospital with fever did have elevated white count with abdominal pain and constipation meeting criteria for sepsis source is likely colitis/diverticulitis and need to cover for enteric gram-negative both anaerobes and anaerobes, abnormality to the left kidney described on the CT however the patient did have a negative UA and no urinary symptoms 2-patient with a penicillin allergy that would limit the number of antibiotics safe to use 3-patient fever has resolved and white count is trending down, to continue with cefepime and Flagyl the bedside questions concerned were answered Time with Patient: Less than 30
--- NOTE | 2022-06-15 14:11 | P.PN ---
Subjective Progress Note Date: 06/15/22 Principal diagnosis: hx lymphoma and EMMA at today's visit patient is Minh romeo in bed, at bedside. Patient reports feeling much better today. He is eating lunch and denies nausea vomiting diarrhea and abdominal pain. No fever in the last 24hrs. he continues on IV antibiotics. No other reported complaints at this time Objective - Vital Signs Vital signs: Vital Signs Temp 97.6 F 06/15/22 12:13 Pulse 70 06/15/22 12:13 Resp 18 06/15/22 12:13 BP 116/70 06/15/22 12:13 Pulse Ox 97 06/15/22 12:13 FiO2 Intake & Output 06/14/22 06/15/22 06/15/22 18:59 06:59 18:59 Output Total 200 100 Balance -200 -100 Output: Urine 200 100 Other: Voiding Method Toilet Toilet Toilet Urinal Urinal Urinal - Constitutional General appearance: Present: average body habitus, no acute distress - EENT Eyes: Present: anicteric sclerae, EOMI ENT: Present: hearing grossly normal - Respiratory Details: breathing is even and unlabored - Cardiovascular Details: skin is warm and dry - Gastrointestinal General gastrointestinal: Absent: tenderness - Integumentary Integumentary: Present: normal - Neurologic Neurologic: Present: CNII-XII intact - Musculoskeletal Musculoskeletal: Present: strength equal bilaterally - Labs CBC & Chem 7: 06/15/22 06:22 06/15/22 10:35 Labs: Abnormal Lab Results - Last 24 Hours (Table) 06/14/22 06/15/22 06/15/22 Range/Units 07:54 06:22 06:22 WBC 18.56 H (4.50-10.00) X 10*3/uL RBC 3.47 L (4.40-5.60) X 10*6/uL Hgb 10.3 L (13.0-17.0) g/dL Hct 33.8 L (39.6-50.0) % MCV 97.4 H (80.0-97.0) fL MCHC 30.5 L (32.0-37.0) g/dL Immature Gran # 0.10 H (0.00-0.04) X 10*3/uL Neutrophils # 15.89 H (1.80-7.70) X 10*3/uL Anion Gap 9.10 L (10.00-18.00) mmol/L Calcium 8.2 L (8.7-10.3) mg/dL Procalcitonin 0.36 H (0.02-0.09) ng/mL Microbiology - Last 24 Hours (Table) 06/13/22 23:40 Blood Culture - Preliminary Blood 06/13/22 23:17 Blood Culture - Preliminary Blood Assessment and Plan (1) Iron deficiency anemia Current Visit: Yes Status: Acute Priority: Medium Code(s): D50.9 - IRON DEFICIENCY ANEMIA, UNSPECIFIED SNOMED Code(s): 95038036 (2) Colitis Current Visit: Yes Status: Acute Priority: High Code(s): K52.9 - NONINFECTIVE GASTROENTERITIS AND COLITIS, UNSPECIFIED SNOMED Code(s): 36534220 (3) Mantle cell lymphoma Current Visit: No Status: Chronic Priority: Medium Code(s): C83.10 - MANTLE CELL LYMPHOMA, UNSPECIFIED SITE SNOMED Code(s): 148084458 Plan: Colitis: -CT abdomen/pelvis revealed Mild fat stranding changes/inflammation involving the left anterior abdominal fat near the descending colon. Correlate for early colitis. No other finding within the abdomen or pelvis to correlate with infectious inflammatory process. Inflammation changes around the left kidney could be secondary to #1. Correlate with urinalysis. No lymphadenopathy identified. Continues on cefepime and flagyl -ID following -WBC 18.5, likely reactive to acute infectious process -T max 100.5. No fever last 24 hrs. Flu, RSV, COVID and strep negative -Defer management to ID/IM team EMMA: -Hx of EMMA. Hemoglobin stable -Received last infusion of Feraheme on 06/08/22. Iron studies on 06/06/22 revealed iron 23, iron sat 9%, ferritin 745. 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
[2022-06-15] MEDS: ACETAMINOPHEN TAB 325 MG TAB PO PRN (18:53)
[2022-06-15] MEDS: BENZOCAINE/MENTHOL LOZENG 1 EACH LOZENGE MUCOUS MEM PRN (20:17)
[2022-06-15] MEDS: DILTIAZEM CD 120 MG CAP.ER.24H PO SCH (20:18)
[2022-06-15] MEDS: ALPRAZolam 0.25 MG TAB PO PRN (20:18)
--- NOTE | 2022-06-16 05:37 | P.PN ---
Subjective Progress Note Date: 06/15/22 This is a pleasant 76-year-old male who presented to the emergency department with feelings of weakness along with fevers that have been ongoing since Saturday. Patient did follow with his oncologist Dr. Ochoa in the outpatient setting on May 04 and had blood work showing a mildly elevated white count of 12 and had been feeling generalized weakness and further labs were drawn including iron studies. reports patient was notified about the low iron recommending an infusion and went and had an IV iron transfusion on Saturday. Patient continued to have worsening symptoms throughout the weekend and persisted with fevers and persistent worsening weakness and encourage the patient to come to the ER for further evaluation. Patient is endorsing some mild abdominal discomfort with possible constipation and denies nausea or vomiting or diarrhea. Patient denies any recent sick contacts but reports this is been ongoing for the last 10 days. Patient reports he followed with his primary care provider Dr. 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 Patient did go to his peeled potato inspector had some labs drawn along with a chest x-ray showing no acute process and had a shelter monitor on him which was normal with no abnormalities noted. 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 Patient is currently not receiving any active treatment for his lymphoma. Patient did have a chest x-ray here showing no acute cardiopulmonary process in the ER and also underwent a brain CT showing no acute intracranial process with nonspecific white matter changes secondary to chronic small vessel ischemic disease. Patient did have a CT abdomen/pelvis as well showing mild fat stranding changes and inflammation involving the left anterior abdominal fat near the descending colon to correlate for early colitis with no other findings within the abdomen or pelvis to correlate for an infectious or inflammatory process, some inflammation changes around the left kidney that could be secondary to above and to correlate with urinalysis there is no lymphadenopathy identified. Urinalysis was negative and all virology testings including influenza RSV Covid and strep were negative. Patient is having fevers and an elevated white count that was found to be 23.6 on admission. patient was admitted for leukocytosis and possible colitis with infectious disease and oncology on consult. Patient was started on meropenem and cefepime and did receive some fluid boluses in the ER. Lactic acid on admission was 1. 06/15/2022 Patient is seen and evaluated in follow-up this morning and has been afebrile and is being continued on antibiotics with infectious disease following along with oncology. Patient reports to feeling better and denies any abdominal pain and is tolerating diet with no reports of nausea or vomiting noted. Discussed with infectious disease as patient still continues to have an elevated white count of 19 recommend monitoring overnight with continued IV antibiotics. Encouraged increased activity as tolerated and encouraged oral intake. Review of systems: Constitutional: reports of fatigue, no fever, or chills Cardiovascular: No reports of chest pain or palpitations Respiratory: No reports of shortness of breath or cough GI: No reports of nausea, vomiting, or diarrhea : No reports of dysuria or retention Neurovascular: No reports of weakness or numbness All medications have been reviewed Active Medications Acetaminophen (Acetaminophen Tab 325 Mg Tab) 650 mg PO Q6HR PRN PRN Reason: Mild Pain or Fever > 100.5 Last Admin: 06/15/22 18:53 Dose: 650 mg Albuterol Sulfate (Albuterol Nebulized 2.5 Mg/3 Ml) 2.5 mg INHALATION RT-Q6H PRN PRN Reason: Shortness Of Breath Alprazolam (Alprazolam 0.25 Mg Tab) 0.25 mg PO BID PRN PRN Reason: Anxiety Last Admin: 06/15/22 20:18 Dose: 0.25 mg Apixaban (Apixaban 5 Mg Tab) 5 mg PO BID [facility]; Protocol Last Admin: 06/15/22 20:18 Dose: 5 mg Benzocaine/Menthol (Benzocaine/Menthol Lozeng 1 Each Lozenge) 1 each MUCOUS MEM Q4HR PRN PRN Reason: Sore Throat Last Admin: 06/15/22 20:17 Dose: 1 each Diltiazem HCl (Diltiazem Cd 120 Mg Cap.Er.24h) 120 mg PO HS [facility] Last Admin: 06/15/22 20:18 Dose: 120 mg Flecainide Acetate (Flecainide 50 Mg Tab) 100 mg PO BID [facility] Last Admin: 06/15/22 20:18 Dose: 100 mg Cefepime HCl 2 gm/ Sodium (Chloride) 100 mls @ 25 mls/hr IVPB Q8HR [facility]; Protocol Last Admin: 06/15/22 23:15 Dose: 25 mls/hr Metronidazole 500 mg/ IV (Solution) 100 mls @ 100 mls/hr IVPB Q8HR [facility]; Protocol Last Admin: 06/15/22 23:16 Dose: 100 mls/hr Naloxone HCl (Naloxone 0.4 Mg/Ml 1 Ml Vial) 0.2 mg IV Q2M PRN PRN Reason: Opioid Reversal PHYSICAL EXAMINATION: GENERAL: The patient is alert and oriented x3, Well developed, well nourished. HEENT: Pupils are round and equally reacting to light. EOMI. no scleral icterus. No conjunctival pallor. Normocephalic, atraumatic. No pharyngeal erythema. No thyromegaly. CARDIOVASCULAR: S1 and S2 muffled PULMONARY: diminished breath sounds bilaterally with no wheezing or rhonchi noted. ABDOMEN: soft. non-tender on exam. non-distended, normoactive bowel sounds. No palpable organomegaly. MUSCULOSKELETAL: No joint swelling or deformity. EXTREMITIES: No cyanosis, clubbing, or pedal edema. NEUROLOGICAL: Gross neurological examination did not reveal any focal deficits. SKIN: No rashes. Assessment: Fever with leukocytosis, possibly secondary to acute pharyngitis, or possibility of early signs of colitis or diverticulitis as noted on CT Features of sepsis, present on admission, including fevers and leukocytosis, possible viral etiology Sore throat, possible acute pharyngitis Diffuse abdominal pain and CT abdomen showed beginning signs of colitis Recent iron infusion in the outpatient setting last Saturday History of mantle lymphoma History of atrial fibrillation, currently rate controlled History of basal cell carcinoma in 2012, in remission History of aortic aneurysm History bronchitis Lifelong nonsmoker GI prophylaxis DVT prophylaxis Full code Plan: Recommend to continue with current medications and management with infectious disease and oncology following Patient was started on cefepime and vancomycin in the ER with leukocytosis and vancomycin being discontinued Flagyl being added per infectious disease Patient is afebrile today reports to feeling better and discuss with infectious disease and recommends monitoring overnight and continued IV antibiotics and will discuss further possible discharge Oncology following as patient follows with Dr. Gan for history of for lymphoma, reports most recent PET scan was clear on 05/25/2022 and is not currently receiving treatment Influenza, Covid, RSV, strep all negative WBC remains elevated and will follow-up with repeat labs in the a.m. Blood cultures are negative thus far and urine was negative. pro calcitonin low Recommend monitoring overnight with possible discharge in 24 hours The impression and plan of care has been dictated by Kika Jorgensen, nurse practitioner as directed. Dr. Corin MD I have performed a history and examination and MDM of this patient, discussed the same with the dictator, and agree with the dictator's assessment and plan as written ,documented as a scribe. Based on total visit time, I have performed more than 50% of the visit. Any additional findings or plans will be noted. Objective - Vital Signs Vital signs: Vital Signs Temp 97.8 F 06/15/22 07:07 Pulse 71 06/15/22 07:07 Resp 18 06/15/22 07:07 BP 107/69 06/15/22 07:07 Pulse Ox 94 L 06/15/22 07:07 FiO2 Intake & Output 06/14/22 06/15/22 06/15/22 18:59 06:59 18:59 Output Total 200 100 Balance -200 -100 Output: Urine 200 100 Other: Voiding Method Toilet Toilet Urinal Urinal - Labs CBC & Chem 7: 06/15/22 06:22 06/15/22 10:35 Labs: Abnormal Lab Results - Last 24 Hours (Table) 06/14/22 06/14/22 Range/Units 00:32 07:54 Haptoglobin 537.0 H (31.2-198.0) mg/dL Procalcitonin 0.36 H (0.02-0.09) ng/mL
[2022-06-16] MEDS: APIXABAN 5 MG TAB PO SCH ×2 (07:39→20:33)
[2022-06-16] MEDS: FLECAINIDE 50 MG TAB PO SCH ×2 (07:39→20:33)
[2022-06-16] MEDS: CEFEPIME 2 GM in SODIUM CHLORIDE 0.9% 100 ML IVPB SCH ×3 (07:40→23:47)
[2022-06-16] MEDS: metroNIDAZOLE-NS PMX 500 MG in SALINE 1 100ML.BAG IVPB SCH ×3 (07:43→23:47)
[2022-06-16] MEDS: ONDANSETRON 4 MG/2 ML VIAL IVP PRN (08:04)
[2022-06-16] MEDS: ACETAMINOPHEN TAB 325 MG TAB PO PRN ×2 (08:09→17:43)
[2022-06-16 08:25] LABS: Basophils % (A) 0 %; Eosinophils # (A) 0.5 k/uL (0-0.7); Eosinophils % (A) 3 %; HCT 37.7 % (39.0-53.0); HGB 12.3 gm/dL (13.0-17.5); Lymphocytes # (A) 0.5 k/uL (1.0-4.8); Lymphocytes % (A) 3 %; MCH 31.3 pg (25.0-35.0); MCHC 32.6 g/dL (31.0-37.0); Mean Platelet Volume 8.7; Monocytes # (A) 0.6 k/uL (0-1.0); Monocytes % (A) 4 %; Neutrophils # (A) 16.4 k/uL (1.3-7.7); Neutrophils % (A) 90 %; Platelet Count 351 k/uL (150-450); RBC 3.93 m/uL (4.30-5.90); RDW 13.8 % (11.5-15.5); WBC 18.1 k/uL (3.8-10.6)
[2022-06-16 08:38] LABS: African American GFR (CKD) >90 (>60 ml/min/1.73 sqM); Non-African American GFR(CKD) 87 (>60 ml/min/1.73 sqM)
[2022-06-16] MEDS: IOPAMIDOL CONTRAST (ORAL USE) VIAL PO PRN ×2 (09:58→10:52)
--- NOTE | 2022-06-16 11:51 | CT ---
EXAMINATION TYPE: CT abdomen pelvis w con DATE OF EXAM: 06/16/2022 COMPARISON: 06/13/2022 HISTORY: ABD PAIN CT DLP: 1512.4 mGycm CONTRAST: CT scan of the abdomen and pelvis is performed with Oral Contrast and with IV Contrast, patient injec eric with 100 mL of Isovue 300. FINDINGS: LUNG BASES-: No visible nodule. No infiltrate. LIVER/GB: Stable simple cyst left hepatic lobe lateral segment. The gallbladder is surgically absent. Biliary tree is of normal caliber. PANCREAS: No inflammation. No distinct mass. SPLEEN: No splenic enlargement. No lesion seen. ADRENALS: No nodule. No thickening. KIDNEYS/BLADDER: No hydronephrosis. No nephrolithiasis. Stable left parapelvic and renal cortical c ysts noted bilaterally. Urinary bladder grossly unremarkable. BOWEL: There is pericolonic stranding noted adjacent to the descending colonic/sigmoid colonic juncti on which may reflect mild colitis or diverticulitis. There is no evidence for abscess or free air. Se e coronal image 51 sequence 8 and axial image 57 sequence 4. Stable stranding noted adjacent to the p roximal descending colon unchanged. Small bowel is of normal caliber. Nonvisualization of the appendi x. GENITAL ORGANS: No gross abnormality. LYMPH NODES: No greater than 1cm abdominal or pelvic lymph nodes are appreciated. AORTA: No significant abnormality. OSSEOUS STRUCTURES: No significant abnormality is seen. OTHER: No significant additional abnormality is seen. IMPRESSION: 1. Correlate for multifocal colitis with mild but new area of pericolonic stranding at the descending colonic/sigmoid colonic junction.
--- NOTE | 2022-06-16 18:38 | XR ---
EXAMINATION TYPE: XR chest 1V portable DATE OF EXAM: 06/16/2022 6:27 PM COMPARISON: Chest x-ray 06/13/2022 TECHNIQUE: XR chest 1V portable . CLINICAL INDICATION:Male, 76 years old with history of SOB/wheezy; FINDINGS: Lungs/Pleura: There is no evidence of pleural effusion, focal consolidation, or pneumothorax. Pulmonary vascularity: Unremarkable. Heart/mediastinum: Cardiomediastinal silhouette is unremarkable. Atherosclerotic calcifications are seen in the aorta. Musculoskeletal: No acute osseous pathology. IMPRESSION: No acute cardiopulmonary disease/process.
[2022-06-16] MEDS: BENZOCAINE/MENTHOL LOZENG 1 EACH LOZENGE MUCOUS MEM PRN (20:33)
[2022-06-16] MEDS: DILTIAZEM CD 120 MG CAP.ER.24H PO SCH (20:33)
--- NOTE | 2022-06-16 23:16 | P.PN ---
Subjective Progress Note Date: 06/16/22 Principal diagnosis: Fever/colitis Patient is a 76-year-old male with a past medical history significant for lymphoma currently in remission and recently received an iron transfusion presenting to the hospital with symptoms of some mental status changes the patient also complaining of sore throat and lower abdominal discomfort, patient did have a CT abdominal pelvis suspicious for colitis involving the sigmoid region. On today's evaluation that is 06/16/2022, the patient did spike a fever of 101F last evening patient mentioned not feeling that good has been feeling nauseated but no vomiting and some abdominal discomfort no diarrhea, the patient denies chest pain shortness of breath or cough no urinary symptoms Objective - Vital Signs Vital signs: Vital Signs Temp 99 F 06/16/22 07:44 Pulse 99 06/16/22 07:44 Resp 20 06/16/22 07:44 BP 150/80 06/16/22 07:44 Pulse Ox 100 06/16/22 07:44 FiO2 Intake & Output 06/15/22 06/16/22 06/16/22 18:59 06:59 18:59 Intake Total 400 Balance 400 Intake: Oral 400 Other: Voiding Method Toilet Toilet Urinal Urinal # Voids 3 2 - Exam GENERAL DESCRIPTION: An elderly male lying in bed in no distress RESPIRATORY SYSTEM: Unlabored breathing , decreased breath sounds at bases HEART: S1 S2 regular rate and rhythm , ABDOMEN: Soft , mild distention but no tenderness EXTREMITIES: No edema feet Physical completed with the help of an FOOD AND NUTRITION SUPERVISOR - Labs CBC & Chem 7: 06/16/22 07:28 06/16/22 07:28 Labs: Abnormal Lab Results - Last 24 Hours (Table) 06/15/22 06/15/22 06/16/22 Range/Units 06:22 06:22 07:28 WBC 18.56 H 18.1 H (4.50-10.00) X 10*3/uL RBC 3.47 L 3.93 L (4.40-5.60) X 10*6/uL Hgb 10.3 L 12.3 L (13.0-17.0) g/dL Hct 33.8 L 37.7 L (39.6-50.0) % MCV 97.4 H (80.0-97.0) fL MCHC 30.5 L (32.0-37.0) g/dL Immature Gran # 0.10 H (0.00-0.04) X 10*3/uL Neutrophils # 15.89 H 16.4 H (1.80-7.70) X 10*3/uL Lymphocytes # 0.5 L (1.0-4.8) k/uL Anion Gap 9.10 L (10.00-18.00) mmol/L Calcium 8.2 L (8.7-10.3) mg/dL Microbiology - Last 24 Hours (Table) 06/13/22 23:40 Blood Culture - Preliminary Blood 06/13/22 23:17 Blood Culture - Preliminary Blood Assessment and Plan (1) Colitis Current Visit: Yes Status: Acute Priority: High Code(s): K52.9 - NONINFECTIVE GASTROENTERITIS AND COLITIS, UNSPECIFIED SNOMED Code(s): 00683711 (2) Febrile illness Current Visit: Yes Status: Acute Code(s): R50.9 - FEVER, UNSPECIFIED SNOMED Code(s): 928274640 Plan: 1patient presented to hospital with fever did have elevated white count with abdominal pain and constipation meeting criteria for sepsis source is likely colitis/diverticulitis and need to cover for enteric gram-negative both anaerobes and anaerobes, abnormality to the left kidney described on the CT however the patient did have a negative UA and no urinary symptoms 2-patient with a penicillin allergy that would limit the number of antibiotics safe to use 3-patient did have a new fever and white count is still elevated we will repeat his CT of abdominal pelvis with contrast continue with the cefepime and Flagyl and will help form bowel rest Time with Patient: Less than 30
[2022-06-17 04:55] LABS: ALT 43 U/L (4-49); AST 22 U/L (17-59); African American GFR (CKD) >90 (>60 ml/min/1.73 sqM); Albumin 2.6 g/dL (3.5-5.0); Alkaline Phosphatase 190 U/L (38-126); Anion Gap 8 mmol/L; Blood Urea Nitrogen 12 mg/dL (9-20); Carbon Dioxide 29 mmol/L (22-30); Chloride 101 mmol/L (98-107); Globulin 2.6 g/dL; Glucose 101 mg/dL (74-99); Non-African American GFR(CKD) 86 (>60 ml/min/1.73 sqM); Potassium 3.5 mmol/L (3.5-5.1); Sodium 138 mmol/L (137-145); Total Bilirubin 0.6 mg/dL (0.2-1.3); Total Protein 5.2 g/dL (6.3-8.2)
--- NOTE | 2022-06-17 05:24 | P.PN ---
Subjective Progress Note Date: 06/16/22 This is a pleasant 76-year-old male who presented to the emergency department with feelings of weakness along with fevers that have been ongoing since Saturday. Patient did follow with his oncologist Dr. Ochoa in the outpatient setting on May 04 and had blood work showing a mildly elevated white count of 12 and had been feeling generalized weakness and further labs were drawn including iron studies. reports patient was notified about the low iron recommending an infusion and went and had an IV iron transfusion on Saturday. Patient continued to have worsening symptoms throughout the weekend and persisted with fevers and persistent worsening weakness and encourage the patient to come to the ER for further evaluation. Patient is endorsing some mild abdominal discomfort with possible constipation and denies nausea or vomiting or diarrhea. Patient denies any recent sick contacts but reports this is been ongoing for the last 10 days. Patient reports he followed with his primary care provider Dr. Meza and encouraged follow-up with oncology as well as his metal furniture assembler. Patient did go to his metal furniture assembler had some labs drawn along with a chest x-ray showing no acute process and had a property assessment monitor on him which was normal with no abnormalities noted. 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 Patient is currently not receiving any active treatment for his lymphoma. Patient did have a chest x-ray here showing no acute cardiopulmonary process in the ER and also underwent a brain CT showing no acute intracranial process with nonspecific white matter changes secondary to chronic small vessel ischemic disease. Patient did have a CT abdomen/pelvis as well showing mild fat stranding changes and inflammation involving the left anterior abdominal fat near the descending colon to correlate for early colitis with no other findings within the abdomen or pelvis to correlate for an infectious or inflammatory process, some inflammation changes around the left kidney that could be secondary to above and to correlate with urinalysis there is no lymphadenopathy identified. Urinalysis was negative and all virology testings including influenza RSV Covid and strep were negative. Patient is having fevers and an elevated white count that was found to be 23.6 on admission. patient was admitted for leukocytosis and possible colitis with infectious disease and oncology on consult. Patient was started on meropenem and cefepime and did receive some fluid boluses in the ER. Lactic acid on admission was 1. 06/15/2022 Patient is seen and evaluated in follow-up this morning and has been afebrile and is being continued on antibiotics with infectious disease following along with oncology. Patient reports to feeling better and denies any abdominal pain and is tolerating diet with no reports of nausea or vomiting noted. Discussed with infectious disease as patient still continues to have an elevated white count of 19 recommend monitoring overnight with continued IV antibiotics. Encouraged increased activity as tolerated and encouraged oral intake. 06/16/2022 Patient is seen and evaluated today currently sitting up at the side of the bed reporting he is not feeling well and continues with nausea and was given some Zofran although continues to report nausea and some abdominal pain. Patient is having fevers and noted to have flush face with generalized malaise. Patient being followed by infectious disease along with oncology and maintained on IV antibiotics and ID recommending repeat CT abdomen is patient's abdomen is tender on palpation. Patient denies chest pain or shortness of breath. Awaiting a.m. labs as WBC remains elevated. Review of systems: Constitutional: reports of fatigue, reports fever, or chills Cardiovascular: No reports of chest pain or palpitations Respiratory: No reports of shortness of breath or cough GI: reports of nausea with some dry heaving today, reports a bowel movement yesterday and denies diarrhea : No reports of dysuria or retention Neurovascular: reports of generalized weakness All medications have been reviewed Active Medications Acetaminophen (Acetaminophen Tab 325 Mg Tab) 650 mg PO Q6HR PRN PRN Reason: Mild Pain or Fever > 100.5 Last Admin: 06/16/22 17:43 Dose: 650 mg Albuterol Sulfate (Albuterol Nebulized 2.5 Mg/3 Ml) 2.5 mg INHALATION RT-Q6H PRN PRN Reason: Shortness Of Breath Last Admin: 06/16/22 17:55 Dose: 2.5 mg Alprazolam (Alprazolam 0.25 Mg Tab) 0.25 mg PO BID PRN PRN Reason: Anxiety Last Admin: 06/15/22 20:18 Dose: 0.25 mg Apixaban (Apixaban 5 Mg Tab) 5 mg PO BID [facility]; Protocol Last Admin: 06/16/22 20:33 Dose: 5 mg Benzocaine/Menthol (Benzocaine/Menthol Lozeng 1 Each Lozenge) 1 each MUCOUS MEM Q4HR PRN PRN Reason: Sore Throat Last Admin: 06/16/22 20:33 Dose: 1 each Diltiazem HCl (Diltiazem Cd 120 Mg Cap.Er.24h) 120 mg PO HS [facility] Last Admin: 06/16/22 20:33 Dose: 120 mg Flecainide Acetate (Flecainide 50 Mg Tab) 100 mg PO BID [facility] Last Admin: 06/16/22 20:33 Dose: 100 mg Cefepime HCl 2 gm/ Sodium (Chloride) 100 mls @ 25 mls/hr IVPB Q8HR [facility]; Protocol Last Admin: 06/16/22 23:47 Dose: 25 mls/hr Metronidazole 500 mg/ IV (Solution) 100 mls @ 100 mls/hr IVPB Q8HR [facility]; Protocol Last Admin: 06/16/22 23:47 Dose: 100 mls/hr Naloxone HCl (Naloxone 0.4 Mg/Ml 1 Ml Vial) 0.2 mg IV Q2M PRN PRN Reason: Opioid Reversal Ondansetron HCl (Ondansetron 4 Mg/2 Ml Vial) 4 mg IVP Q6HR PRN PRN Reason: Nausea And Vomiting Last Admin: 06/16/22 08:04 Dose: 4 mg PHYSICAL EXAMINATION: GENERAL: The patient is alert and oriented x3, Well developed, well nourished. HEENT: Pupils are round and equally reacting to light. EOMI. no scleral icterus. No conjunctival pallor. Normocephalic, atraumatic. No pharyngeal erythema. No thyromegaly. CARDIOVASCULAR: S1 and S2 muffled PULMONARY: diminished breath sounds bilaterally with no wheezing or rhonchi noted. ABDOMEN: soft. tender on exam. non-distended, normoactive bowel sounds. No palpable organomegaly. MUSCULOSKELETAL: No joint swelling or deformity. EXTREMITIES: No cyanosis, clubbing, or pedal edema. NEUROLOGICAL: Gross neurological examination did not reveal any focal deficits. SKIN: No rashes. Flushed and febrile Assessment: Fever with leukocytosis, possibly secondary to acute pharyngitis, or possibility of early signs of colitis or diverticulitis as noted on CT Features of sepsis, present on admission, including fevers and leukocytosis, possible viral etiology Sore throat, possible acute pharyngitis, improved Diffuse abdominal pain and CT abdomen showed beginning signs of colitis Recent iron infusion in the outpatient setting last Saturday History of mantle lymphoma History of atrial fibrillation, currently rate controlled History of basal cell carcinoma in 2013, in remission History of aortic aneurysm History bronchitis Lifelong nonsmoker GI prophylaxis DVT prophylaxis Full code Plan: Recommend to continue with current medications and management with infectious disease and oncology following Patient is continued on cefepime and Flagyl. WBC remains elevated and patient having worsening abdominal pain will order repeat CT Patient is having fevers again today and also reporting abdominal pain with some nausea and dry heaving Oncology following as patient follows with Dr. Gan for history of for lymphoma, reports most recent PET scan was clear on 05/25/2022 and is not currently receiving treatment Influenza, Covid, RSV, strep all negative WBC remains elevated and will follow-up with repeat labs in the a.m. Blood cultures are negative thus far and urine was negative. pro calcitonin low The impression and plan of care has been dictated by Kika Jorgensen, nurse practitioner as directed. Dr. Corin MD I have performed a history and examination and MDM of this patient, discussed the same with the dictator, and agree with the dictator's assessment and plan as written ,documented as a scribe. Based on total visit time, I have performed more than 50% of the visit. Any additional findings or plans will be noted. Objective - Vital Signs Vital signs: Vital Signs Temp 97.9 F 06/17/22 01:38 Pulse 74 06/17/22 01:38 Resp 18 06/17/22 01:38 BP 104/60 06/17/22 01:38 Pulse Ox 93 L 06/17/22 01:38 FiO2 Intake & Output 06/16/22 06/16/22 06/17/22 06:59 18:59 06:59 Intake Total 400 Balance 400 Intake: Oral 400 Other: Voiding Method Toilet Toilet Urinal Urinal # Voids 2 2 - Labs CBC & Chem 7: 06/16/22 07:28 06/17/22 04:17 Labs: Abnormal Lab Results - Last 24 Hours (Table) 06/16/22 06/17/22 Range/Units 07:28 04:17 WBC 18.1 H (3.8-10.6) k/uL RBC 3.93 L (4.30-5.90) m/uL Hgb 12.3 L (13.0-17.5) gm/dL Hct 37.7 L (39.0-53.0) % Neutrophils # 16.4 H (1.3-7.7) k/uL Lymphocytes # 0.5 L (1.0-4.8) k/uL Glucose 101 H (74-99) mg/dL Calcium 8.0 L (8.4-10.2) mg/dL Alkaline Phosphatase 190 H (38-126) U/L Total Protein 5.2 L (6.3-8.2) g/dL Albumin 2.6 L (3.5-5.0) g/dL Microbiology - Last 24 Hours (Table) 06/13/22 23:40 Blood Culture - Preliminary Blood 06/13/22 23:17 Blood Culture - Preliminary Blood
[2022-06-17 05:58] LABS: C Reactive Protein 16.3 mg/dL (<1.0)
[2022-06-17] MEDS: metroNIDAZOLE-NS PMX 500 MG in SALINE 1 100ML.BAG IVPB SCH ×3 (07:08→23:36)
[2022-06-17] MEDS: CEFEPIME 2 GM in SODIUM CHLORIDE 0.9% 100 ML IVPB SCH ×3 (07:09→23:36)
[2022-06-17] MEDS: APIXABAN 5 MG TAB PO SCH ×2 (07:10→21:35)
[2022-06-17] MEDS: FLECAINIDE 50 MG TAB PO SCH ×2 (07:10→21:35)
[2022-06-17] MEDS: ACETAMINOPHEN TAB 325 MG TAB PO PRN (10:18)
[2022-06-17 10:29] LABS: HCT 38.7 % (39.6-50.0); HGB 12.2 g/dL (13.0-17.0); MCH 30.7 pg (27.0-32.0); MCHC 31.5 g/dL (32.0-37.0); MCV 97.5 fL (80.0-97.0); Mean Platelet Volume 10.7 fL (9.5-12.2); NRBC Per 100 WBC 0 /100 WBCS (0.0-0.0); Platelet Count 363 X 10*3/uL (140-440); RBC 3.97 X 10*6/uL (4.40-5.60); RDW 14.6 % (11.5-14.5)
[2022-06-17 12:13] LABS: Basophils # (A) 0.04 X 10*3/uL (0.00-0.10); Basophils % (A) 0.2 %; Eosinophils # (A) 0.72 X 10*3/uL (0.04-0.35); Eosinophils % (A) 2.8 %; Immature Grans, Automated 1.6 %; Lymphocytes % (A) 4.3 %; Monocytes # (A) 0.58 X 10*3/uL (0.20-1.00); Monocytes % (A) 2.2 %; Neutrophils # (A) 22.96 X 10*3/uL (1.80-7.70); Neutrophils % (A) 88.9 %
--- NOTE | 2022-06-17 19:40 | P.PN ---
Subjective Progress Note Date: 06/17/22 Principal diagnosis: Fever/colitis Patient is a 76-year-old male with a past medical history significant for lymphoma currently in remission and recently received an iron transfusion presenting to the hospital with symptoms of some mental status changes the patient also complaining of sore throat and lower abdominal discomfort, patient did have a CT abdominal pelvis suspicious for colitis involving the sigmoid region. On today's evaluation that is 06/17/2022, the patient fever pattern has improved and did have a temperature 100.2F, patient still complaining of feeling nauseated but no vomiting and some abdominal discomfort however the patient denies diarrhea, the patient denies chest pain shortness of breath or cough no urinary symptoms Objective - Vital Signs Vital signs: Vital Signs Temp 97.9 F 06/17/22 01:38 Pulse 74 06/17/22 01:38 Resp 18 06/17/22 01:38 BP 104/60 06/17/22 01:38 Pulse Ox 96 06/17/22 07:53 FiO2 Intake & Output 06/16/22 06/17/22 06/17/22 18:59 06:59 18:59 Intake Total 200 Balance 200 Intake: Intake, IV Titration 200 Amount Cefepime 2 gm In Sodium 100 Chloride 0.9% 100 ml @ 25 mls/hr IVPB Q8HR [facility] Rx# :[id number] metroNIDAZOLE-NS PMX 500 100 mg In Saline 1 100ml.bag @ 100 mls/hr IVPB Q8HR [facility] [place] Rx#:[id number] Other: Voiding Method Toilet Urinal # Voids 2 2 - Exam GENERAL DESCRIPTION: An elderly male lying in bed in no distress RESPIRATORY SYSTEM: Unlabored breathing , decreased breath sounds at bases HEART: S1 S2 regular rate and rhythm , ABDOMEN: Soft , mild distention but no tenderness EXTREMITIES: No edema feet Physical completed with the help of an NATIONAL BUSINESS DIRECTOR - Labs CBC & Chem 7: 06/17/22 04:17 06/17/22 04:17 Labs: Abnormal Lab Results - Last 24 Hours (Table) 06/16/22 06/17/22 Range/Units 07:28 04:17 WBC 18.1 H (3.8-10.6) k/uL RBC 3.93 L (4.30-5.90) m/uL Hgb 12.3 L (13.0-17.5) gm/dL Hct 37.7 L (39.0-53.0) % Neutrophils # 16.4 H (1.3-7.7) k/uL Lymphocytes # 0.5 L (1.0-4.8) k/uL Glucose 101 H (74-99) mg/dL Calcium 8.0 L (8.4-10.2) mg/dL Alkaline Phosphatase 190 H (38-126) U/L C-Reactive Protein 16.3 H (<1.0) mg/dL Total Protein 5.2 L (6.3-8.2) g/dL Albumin 2.6 L (3.5-5.0) g/dL Microbiology - Last 24 Hours (Table) 06/13/22 23:40 Blood Culture - Preliminary Blood 06/13/22 23:17 Blood Culture - Preliminary Blood Assessment and Plan (1) Colitis Current Visit: Yes Status: Acute Priority: High Code(s): K52.9 - NONINFECTIVE GASTROENTERITIS AND COLITIS, UNSPECIFIED SNOMED Code(s): 83714483 (2) Febrile illness Current Visit: Yes Status: Acute Code(s): R50.9 - FEVER, UNSPECIFIED SNOMED Code(s): 036631181 Plan: 1patient presented to hospital with fever did have elevated white count with abdominal pain and constipation meeting criteria for sepsis source is likely colitis/diverticulitis and need to cover for enteric gram-negative both anaerobes and anaerobes, abnormality to the left kidney described on the CT however the patient did have a negative UA and no urinary symptoms 2-patient with a penicillin allergy that would limit the number of antibiotics s afe to use 3-patient did have a new fever and white count is still elevated, with repeat his CT of abdominal pelvis with contrast did shows evidence of multifocal colitis with a question of possible ischemic as the patient did have a history of atrial fibrillation, patient may benefit from colonoscopy and biopsy, patient to continue with the cefepime and Flagyl and monitor clinical course closely Time with Patient: Less than 30
[2022-06-17] MEDS: DILTIAZEM CD 120 MG CAP.ER.24H PO SCH (21:35)
[2022-06-17] MEDS: ONDANSETRON 4 MG/2 ML VIAL IVP PRN (23:40)
[2022-06-18] MEDS: ACETAMINOPHEN TAB 325 MG TAB PO PRN (01:53)
--- NOTE | 2022-06-18 05:47 | P.PN ---
Subjective Progress Note Date: 06/17/22 This is a pleasant 76-year-old male who presented to the emergency department with feelings of weakness along with fevers that have been ongoing since Saturday. Patient did follow with his oncologist Dr. Ochoa in the outpatient setting on May 04 and had blood work showing a mildly elevated white count of 12 and had been feeling generalized weakness and further labs were drawn including iron studies. reports patient was notified about the low iron recommending an infusion and went and had an IV iron transfusion on Saturday. Patient continued to have worsening symptoms throughout the weekend and persisted with fevers and persistent worsening weakness and encourage the patient to come to the ER for further evaluation. Patient is endorsing some mild abdominal discomfort with possible constipation and denies nausea or vomiting or diarrhea. Patient denies any recent sick contacts but reports this is been ongoing for the last 10 days. Patient reports he followed with his primary care provider Dr. Meza and encouraged follow-up with oncology as well as his cytology manager. Patient did go to his cytology manager had some labs drawn along with a chest x-ray showing no acute process and had a monitoring coordinator on him which was normal with no abnormalities noted. 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 Patient is currently not receiving any active treatment for his lymphoma. Patient did have a chest x-ray here showing no acute cardiopulmonary process in the ER and also underwent a brain CT showing no acute intracranial process with nonspecific white matter changes secondary to chronic small vessel ischemic disease. Patient did have a CT abdomen/pelvis as well showing mild fat stranding changes and inflammation involving the left anterior abdominal fat near the descending colon to correlate for early colitis with no other findings within the abdomen or pelvis to correlate for an infectious or inflammatory process, some inflammation changes around the left kidney that could be secondary to above and to correlate with urinalysis there is no lymphadenopathy identified. Urinalysis was negative and all virology testings including influenza RSV Covid and strep were negative. Patient is having fevers and an elevated white count that was found to be 23.6 on admission. patient was admitted for leukocytosis and possible colitis with infectious disease and oncology on consult. Patient was started on meropenem and cefepime and did receive some fluid boluses in the ER. Lactic acid on admission was 1. 06/15/2022 Patient is seen and evaluated in follow-up this morning and has been afebrile and is being continued on antibiotics with infectious disease following along with oncology. Patient reports to feeling better and denies any abdominal pain and is tolerating diet with no reports of nausea or vomiting noted. Discussed with infectious disease as patient still continues to have an elevated white count of 19 recommend monitoring overnight with continued IV antibiotics. Encouraged increased activity as tolerated and encouraged oral intake. 06/16/2022 Patient is seen and evaluated today currently sitting up at the side of the bed reporting he is not feeling well and continues with nausea and was given some Zofran although continues to report nausea and some abdominal pain. Patient is having fevers and noted to have flush face with generalized malaise. Patient being followed by infectious disease along with oncology and maintained on IV antibiotics and ID recommending repeat CT abdomen is patient's abdomen is tender on palpation. Patient denies chest pain or shortness of breath. Awaiting a.m. labs as WBC remains elevated. 06/17/2022 Patient is seen and evaluated in follow-up this morning continuing to have fevers reporting he is having some nausea with dry heaves denies any diarrhea. Patient does report some diffuse abdominal pain occasionally and repeat CT abdomen with concerns of multifocal colitis. Patient is maintained on cefepime and Flagyl with infectious disease following closely. White count currently pending for this morning and oncology following as well as patient does have a history of mantle cell lymphoma and follows with Dr. Ochoa outpatient. Patient denies chest pain or shortness of breath currently and reports not much of an appetite given his continued nausea. Review of systems: Constitutional: reports of fatigue, reports fever, or chills Cardiovascular: No reports of chest pain or palpitations Respiratory: No reports of shortness of breath or cough GI: reports of nausea with some dry heaving today, reports a bowel movement yesterday and none today and having some occasional diffuse abdominal pain : No reports of dysuria or retention Neurovascular: reports of generalized weakness All medications have been reviewed Active Medications Acetaminophen (Acetaminophen Tab 325 Mg Tab) 650 mg PO Q6HR PRN PRN Reason: Mild Pain or Fever > 100.5 Last Admin: 06/18/22 01:53 Dose: 650 mg Albuterol Sulfate (Albuterol Nebulized 2.5 Mg/3 Ml) 2.5 mg INHALATION RT-Q6H PRN PRN Reason: Shortness Of Breath Last Admin: 06/16/22 17:55 Dose: 2.5 mg Alprazolam (Alprazolam 0.25 Mg Tab) 0.25 mg PO BID PRN PRN Reason: Anxiety Last Admin: 06/15/22 20:18 Dose: 0.25 mg Apixaban (Apixaban 5 Mg Tab) 5 mg PO BID [facility]; Protocol Last Admin: 06/17/22 21:35 Dose: 5 mg Benzocaine/Menthol (Benzocaine/Menthol Lozeng 1 Each Lozenge) 1 each MUCOUS MEM Q4HR PRN PRN Reason: Sore Throat Last Admin: 06/16/22 20:33 Dose: 1 each Diltiazem HCl (Diltiazem Cd 120 Mg Cap.Er.24h) 120 mg PO HS [facility] Last Admin: 06/17/22 21:35 Dose: 120 mg Flecainide Acetate (Flecainide 50 Mg Tab) 100 mg PO BID [facility] Last Admin: 06/17/22 21:35 Dose: 100 mg Cefepime HCl 2 gm/ Sodium (Chloride) 100 mls @ 25 mls/hr IVPB Q8HR [facility]; Protocol Last Admin: 06/17/22 23:36 Dose: 25 mls/hr Metronidazole 500 mg/ IV (Solution) 100 mls @ 100 mls/hr IVPB Q8HR [facility]; Protocol Last Admin: 06/17/22 23:36 Dose: 100 mls/hr Naloxone HCl (Naloxone 0.4 Mg/Ml 1 Ml Vial) 0.2 mg IV Q2M PRN PRN Reason: Opioid Reversal Ondansetron HCl (Ondansetron 4 Mg/2 Ml Vial) 4 mg IVP Q6HR PRN PRN Reason: Nausea And Vomiting Last Admin: 06/17/22 23:40 Dose: 4 mg PHYSICAL EXAMINATION: GENERAL: The patient is alert and oriented x3, Well developed, well nourished. HEENT: Pupils are round and equally reacting to light. EOMI. no scleral icterus. No conjunctival pallor. Normocephalic, atraumatic. No pharyngeal erythema. No thyromegaly. CARDIOVASCULAR: S1 and S2 muffled PULMONARY: diminished breath sounds bilaterally with no wheezing or rhonchi noted. ABDOMEN: soft. tender on exam. non-distended, normoactive bowel sounds. No palpable organomegaly. MUSCULOSKELETAL: No joint swelling or deformity. EXTREMITIES: No cyanosis, clubbing, or pedal edema. NEUROLOGICAL: Gross neurological examination did not reveal any focal deficits. SKIN: No rashes. Flushed and febrile Assessment: Fever with leukocytosis, possibly secondary to acute pharyngitis, or possibility of early signs of colitis or diverticulitis as noted on CT Features of sepsis, present on admission, including fevers and leukocytosis, possible viral etiology with unknown etiology Sore throat, possible acute pharyngitis Diffuse abdominal pain and CT abdomen showing concerns for multifocal colitis Recent iron infusion in the outpatient setting last Saturday History of mantle cell lymphoma History of atrial fibrillation, currently rate controlled History of basal cell carcinoma in 2012, in remission History of aortic aneurysm History bronchitis Lifelong nonsmoker GI prophylaxis DVT prophylaxis Full code Plan: Recommend to continue with current medications and management with infectious disease and oncology following Patient is continued on cefepime and Flagyl. WBC remains elevated and worsened up to 25 today and patient having worsening abdominal pain with repeat CT abdomen showing multifocal colitis concern, infectious disease following recommending possible colonoscopy with biopsy and will consult general surgery as we currently have no GI coverage Patient is having fevers again today and also reporting abdominal pain with some nausea and dry heaving Oncology following as patient follows with Dr. Gan for history of for lymphoma, reports most recent PET scan was clear on 05/25/2022 and is not currently receiving treatment Influenza, Covid, RSV, strep all negative WBC remains elevated and will follow-up with repeat labs in the a.m. Blood cultures are negative thus far and urine was negative. pro calcitonin low The impression and plan of care has been dictated by Kika Jorgensen, nurse practitioner as directed. Dr. Corin MD I have performed a history and examination and MDM of this patient, discussed the same with the dictator, and agree with the dictator's assessment and plan as written ,documented as a scribe. Based on total visit time, I have performed more than 50% of the visit. Any additional findings or plans will be noted. Objective - Vital Signs Vital signs: Vital Signs Temp 97.9 F 06/17/22 01:38 Pulse 74 06/17/22 01:38 Resp 18 06/17/22 01:38 BP 104/60 06/17/22 01:38 Pulse Ox 93 L 06/17/22 01:38 FiO2 Intake & Output 06/16/22 06/17/22 06/17/22 18:59 06:59 18:59 Intake Total 200 Balance 200 Intake: Intake, IV Titration 200 Amount Cefepime 2 gm In Sodium 100 Chloride 0.9% 100 ml @ 25 mls/hr IVPB Q8HR [facility] Rx# :[id number] metroNIDAZOLE-NS PMX 500 100 mg In Saline 1 100ml.bag @ 100 mls/hr IVPB Q8HR [facility] Rx#:[id number] Other: Voiding Method Toilet Urinal # Voids 2 2 - Labs CBC & Chem 7: 06/17/22 04:17 06/17/22 04:17 Labs: Abnormal Lab Results - Last 24 Hours (Table) 06/16/22 06/17/22 Range/Units 07:28 04:17 WBC 18.1 H (3.8-10.6) k/uL RBC 3.93 L (4.30-5.90) m/uL Hgb 12.3 L (13.0-17.5) gm/dL Hct 37.7 L (39.0-53.0) % Neutrophils # 16.4 H (1.3-7.7) k/uL Lymphocytes # 0.5 L (1.0-4.8) k/uL Glucose 101 H (74-99) mg/dL Calcium 8.0 L (8.4-10.2) mg/dL Alkaline Phosphatase 190 H (38-126) U/L C-Reactive Protein 16.3 H (<1.0) mg/dL Total Protein 5.2 L (6.3-8.2) g/dL Albumin 2.6 L (3.5-5.0) g/dL Microbiology - Last 24 Hours (Table) 06/13/22 23:40 Blood Culture - Preliminary Blood 06/13/22 23:17 Blood Culture - Preliminary Blood
[2022-06-18] MEDS: APIXABAN 5 MG TAB PO SCH (07:20)
[2022-06-18] MEDS: FLECAINIDE 50 MG TAB PO SCH ×2 (07:21→20:51)
[2022-06-18] MEDS: CEFEPIME 2 GM in SODIUM CHLORIDE 0.9% 100 ML IVPB SCH ×2 (07:22→16:47)
[2022-06-18] MEDS: metroNIDAZOLE-NS PMX 500 MG in SALINE 1 100ML.BAG IVPB SCH ×2 (07:22→15:20)
[2022-06-18 11:16] LABS: Basophils # (A) 0.07 X 10*3/uL (0.00-0.10); Basophils % (A) 0.3 %; Eosinophils # (A) 0.94 X 10*3/uL (0.04-0.35); HCT 38.9 % (39.6-50.0); HGB 12.2 g/dL (13.0-17.0); Immature Grans, Automated 0.6 %; Lymphocytes # (A) 1.43 X 10*3/uL (0.90-5.00); Lymphocytes % (A) 6.1 %; MCH 30.6 pg (27.0-32.0); MCHC 31.4 g/dL (32.0-37.0); MCV 97.5 fL (80.0-97.0); Mean Platelet Volume 11.1 fL (9.5-12.2); Monocytes % (A) 2.6 %; NRBC Per 100 WBC 0 /100 WBCS (0.0-0.0); Neutrophils # (A) 20.34 X 10*3/uL (1.80-7.70); Neutrophils % (A) 86.4 %; Platelet Count 385 X 10*3/uL (140-440); RBC 3.99 X 10*6/uL (4.40-5.60); RDW 14.4 % (11.5-14.5); WBC 23.52 X 10*3/uL (4.50-10.00)
[2022-06-18 11:26] LABS: African American GFR (CKD) 96.1 (60.0-200.0); Albumin 2.9 g/dL (3.8-4.9); Albumin/Globulin Ratio 1.33 (1.60-3.17); Anion Gap 11.1 mmol/L (10.00-18.00); BUN/Creat Ratio 14.21 Ratio (12.00-20.00); Blood Urea Nitrogen 12.9 mg/dL (9.0-27.0); C Reactive Protein 15.7 mg/dL (0.00-0.80); Calcium 8.4 mg/dL (8.7-10.3); Carbon Dioxide 26.6 mmol/L (20.0-27.5); Globulin 2.2 g/dL (1.6-3.3); Potassium 3.7 mmol/L (3.5-5.5); Total Bilirubin 0.3 mg/dL (0.30-1.20); Total Protein 5.1 g/dL (6.2-8.2)
--- NOTE | 2022-06-18 11:53 | P.PN ---
Subjective Progress Note Date: 06/18/22 Principal diagnosis: Fever/colitis Patient is a 76-year-old male with a past medical history significant for lymphoma currently in remission and recently received an iron transfusion presenting to the hospital with symptoms of some mental status changes the patient also complaining of sore throat and lower abdominal discomfort, patient did have a CT abdominal pelvis suspicious for colitis involving the sigmoid region. On today's evaluation that is 06/18/2022, the patient is afebrile this morning, patient still complaining of not feeling that great, did have some nausea but no vomiting , the patient denies having any abdominal pain had did have one hard bowel movement yesterday no chest pain shortness of breath or cough Objective - Vital Signs Vital signs: Vital Signs Temp 98.1 F 06/18/22 07:19 Pulse 68 06/18/22 07:19 Resp 16 06/18/22 07:19 BP 100/58 06/18/22 07:19 Pulse Ox 95 06/18/22 07:42 FiO2 Intake & Output 06/17/22 06/18/22 06/18/22 18:59 06:59 18:59 Intake Total 1200 520 Output Total 100 Balance 1200 420 Intake: Intake, IV Titration 1200 Amount Cefepime 2 gm In Sodium 200 Chloride 0.9% 100 ml @ 25 mls/hr IVPB Q8HR [facility] Rx# :[id number] metroNIDAZOLE-NS PMX 500 1000 mg In Saline 1 100ml.bag @ 100 mls/hr IVPB Q8HR [facility] Rx#:[id number] Oral 520 Output: Urine 100 Other: Voiding Method Toilet Toilet Urinal Urinal # Voids 1 - Exam GENERAL DESCRIPTION: An elderly male lying in bed in no distress RESPIRATORY SYSTEM: Unlabored breathing , decreased breath sounds at bases HEART: S1 S2 regular rate and rhythm , ABDOMEN: Soft , mild distention but no tenderness EXTREMITIES: No edema feet - Labs CBC & Chem 7: 06/18/22 06:15 06/18/22 06:15 Labs: Abnormal Lab Results - Last 24 Hours (Table) 06/17/22 Range/Units 04:17 WBC 25.80 H (4.50-10.00) X 10*3/uL RBC 3.97 L (4.40-5.60) X 10*6/uL Hgb 12.2 L (13.0-17.0) g/dL Hct 38.7 L (39.6-50.0) % MCV 97.5 H (80.0-97.0) fL MCHC 31.5 L (32.0-37.0) g/dL RDW 14.6 H (11.5-14.5) % Immature Gran # 0.40 H (0.00-0.04) X 10*3/uL Neutrophils # 22.96 H (1.80-7.70) X 10*3/uL Eosinophils # 0.72 H (0.04-0.35) X 10*3/uL Microbiology - Last 24 Hours (Table) 06/13/22 23:40 Blood Culture - Preliminary Blood 06/13/22 23:17 Blood Culture - Preliminary Blood Assessment and Plan (1) Colitis Current Visit: Yes Status: Acute Priority: High Code(s): K52.9 - NONINFECTIVE GASTROENTERITIS AND COLITIS, UNSPECIFIED SNOMED Code(s): 20775437 (2) Febrile illness Current Visit: Yes Status: Acute Code(s): R50.9 - FEVER, UNSPECIFIED SNOMED Code(s): 838602320 Plan: 1patient presented to hospital with fever did have elevated white count with abdominal pain and constipation meeting criteria for sepsis source is likely colitis/diverticulitis and need to cover for enteric gram-negative both anaerobes and anaerobes, abnormality to the left kidney described on the CT however the patient did have a negative UA and no urinary symptoms 2-patient with a penicillin allergy that would limit the number of antibiotics safe to use 3-patient did have a new fever and white count is still elevated, with repeat his CT of abdominal pelvis with contrast did shows evidence of multifocal colitis with a question of possible ischemic as the patient did have a history of atrial fibrillation, patient may benefit from colonoscopy and biopsy with the GI already on the case the patient fever has resolved white count is trending down, patient to continue with the cefepime and Flagyl and monitor clinical course closely
[2022-06-18] MEDS ORDERED: PEG 3350 (236 GM/BTL) + LYTES 4,000 ML BOTTLE PO ONE (12:19)
--- NOTE | 2022-06-18 12:29 | P.GSCN ---
History of Present Illness Consult date: 06/18/22 History of present illness: CHIEF COMPLAINT: Weakness and chills HISTORY OF PRESENT ILLNESS: This is a 76-year-old male with a known history of lymphoma. He presents to the hospital with weakness, chills and fever. He also has been complaining of a sore throat. Patient denies any abdominal pain. Denies any nausea or vomiting. Per ER report he did mention some generalized abdominal discomfort and possible constipation. Patient did have some low-grade fevers with a high fever of 101.3 on 06/15/2022. Patient's white count did trend upwards throughout the weekend from 18-25. Now white count is 23. His WBC is chronically elevated. Computed tomography scan had shown to correlate for multifocal colitis with new pericolonic stranding of the descending colon and sigmoid colonic junction. Surgical service consulted in regards to patient's abdominal pain elevated white count and possible diverticulitis or colitis. Patient's last colonoscopy was in October 2019 and reported as normal. Patient does have a surgical history of cholecystectomy. Medical history does include lymphoma status post treatment. Currently not on any treatment. Patient did have a small bowel yesterday. No blood in the stools. He reports no abdominal pain. But does have some discomfort. PAST MEDICAL HISTORY: See below PAST SURGICAL HISTORY: See below MEDICATIONS: See below ALLERGIES: See below SOCIAL HISTORY: No illicit drug use. REVIEW OF SYSTEMS: CONSTITUTIONAL: Denies fever or chills. HEENT: Denies blurred vision, vision changes, or eye pain. Denies hemoptysis CARDIOVASCULAR: Denies chest pain or pressure. RESPIRATORY: No shortness of breath. GASTROINTESTINAL: See HPI for pertinent findings HEMATOLOGIC: Denies bleeding disorders. GENITOURINARY: Denies any blood in urine or increased urinary frequency. SKIN: Denies pruitis. Denies rash. PHYSICAL EXAM: VITAL SIGNS: Reviewed GENERAL: Well-developed in no acute distress. HEENT: No sclera icterus. Extraocular movements grossly intact. Moist buccal mucosa. Head is atraumatic, normocephalic. No nasal drainage. ABDOMEN: Soft. Nondistended. NEUROLOGIC: Alert and oriented. Cranial nerves II through XII grossly intact. LABORATORY DATA: WBC 23.5 Hgb 12.2 platelets 385 Sodium 141 potassium 3.7 creatinine 0.9 C-reactive protein 15.7 Lactic acid 1.7 IMAGING: Computed tomography scan abdomen and pelvis with contrast correlate for multifocal colitis with mild but new area pericolonic stranding at the descending colon/sigmoid colonic junction CT abdomen and pelvis from 06/13/2022 mild fat stranding changes/inflammation involving the left anterior abdominal fat near the descending colon. Correlate for early colitis. No other findings within the abdomen or pelvis to correlate with infectious/inflammatory process. Inflammation changes around the left kidney could be secondary to #1. No lymphadenopathy identified. ASSESSMENT: 1. Multifocal colitis with new area pericolonic stranding at the descending colon/sigmoid colon junction noted on computed tomography scan 2. Fever 3. Generalized weakness 4. Leukocytosis 5. History of A. fib on Eliquis 6. History of lymphoma PLAN: -Patient scheduled for colonoscopy tomorrow with Dr. Horne -Start clear liquid diet -Start GoLYTELY bowel prep -Nothing by mouth after midnight -Continue antibiotics -Continue supportive care Physician Barrel Builder note has been reviewed by physician. Signing provider agrees with the documented findings, assessment, and plan of care. I have personally seen and examined the patient, reviewed the CARDIAC EXERCISE SPECIALIST /PAs history, exam and MDM and agree with the assessment and plan as written. Based on total visit time, I have performed more than 50% of the visit. As above: Patient known to our service from previous admissions. Patient previously has had issues with leukocytosis and fevers of unknown origin. His laparoscopic cholecystectomy was performed last year partly for that reason. Now he is having some mild left-sided abdominal pain and CAT scan shows mild thickening of the distal descending colon. We'll proceed with colonoscopy to assess for colitis. Past Medical History Past Medical History: Atrial Fibrillation, Cancer, Osteoarthritis (OA) Additional Past Medical History / Comment(s): Mantle Lymphoma, Basal Cell Carcinoma Oct 2012 (in remission), hx Bronchitis. aortic aneurysm History of Any Multi-Drug Resistant Organisms: None Reported Past Surgical History: Hernia Repair, Joint Replacement Additional Past Surgical History / Comment(s): Removal of skin cancer, bone marrow transplant, right knee replacement Past Anesthesia/Blood Transfusion Reactions: No Reported Reaction Past Psychological History: No Psychological Hx Reported Additional Psychological History / Comment(s): Pt resides with his spouse. He has a nebulizer. He is independent. Smoking Status: Never smoker Past Alcohol Use History: None Reported Additional Past Alcohol Use History / Comment(s): Patient is a lifelong nonsmoker, no marijuana, no illicit drug use, he drinks alcohol 2-3 drinks on the weekend. He lives at home with his . 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 He does not require a walker. He does have a nebulizer at home. He does not have oxygen, no CPAP. Past Drug Use History: None Reported - Past Family History Brother(s) Family Medical History: Cancer Additional Family Medical History / Comment(s): . Father Family Medical History: No Reported History Additional Family Medical History / Comment(s): Father was healthy and lived to be 95 yrs old. Mother Family Medical History: Vascular Disorder Additional Family Medical History / Comment(s): Mother at the age of 74 yrs from a ruptured aortic aneurysm. Son(s) Additional Family Medical History / Comment(s): Patient has 2 sons with no major medical problems. Patient doesn't have any sisters. Medications and Allergies Home Medications Medication Instructions Recorded Confirmed Type Apixaban [Eliquis] 5 mg PO BID #60 tab 03/05/19 06/13/22 Rx Flecainide Acetate [Tambocor] 100 mg PO BID 12/17/19 06/13/22 History ALPRAZolam [Xanax] 0.25 mg PO BID PRN 06/13/22 06/13/22 History Albuterol Sulfate [Ventolin HFA] 2 puff INHALATION RT-Q6H PRN 06/13/22 06/13/22 History Azithromycin [Zithromax] 500 mg PO DAILY 06/13/22 06/14/22 History Meloxicam [Mobic] 7.5 mg PO DAILY 06/13/22 06/13/22 History dilTIAZem HCL [Cartia Xt] 120 mg PO HS 06/13/22 06/13/22 History Allergies Allergy/AdvReac Type Severity Reaction Status Date / Time Penicillins Allergy Severe Rash/Hives Verified 06/13/22 19:58 over entire body anidulafungin AdvReac Chest Verified 06/13/22 19:58 Pain/Severe Arm pain with infusion benzonatate AdvReac Dyspnea Verified 06/13/22 19:58 [From [facility] Yane[facility]] Surgical - Exam Vital Signs Temp Pulse Resp BP Pulse Ox 99.1 F 108 H 18 122/72 96 06/13/22 19:53 06/13/22 19:53 06/13/22 19:53 06/13/22 19:53 06/13/22 19:53 Results - Labs 06/18/22 06:15 06/18/22 06:15 Abnormal Lab Results - Last 24 Hours (Table) 06/17/22 Range/Units 04:17 WBC 25.80 H (4.50-10.00) X 10*3/uL RBC 3.97 L (4.40-5.60) X 10*6/uL Hgb 12.2 L (13.0-17.0) g/dL Hct 38.7 L (39.6-50.0) % MCV 97.5 H (80.0-97.0) fL MCHC 31.5 L (32.0-37.0) g/dL RDW 14.6 H (11.5-14.5) % Immature Gran # 0.40 H (0.00-0.04) X 10*3/uL Neutrophils # 22.96 H (1.80-7.70) X 10*3/uL Eosinophils # 0.72 H (0.04-0.35) X 10*3/uL Microbiology - Last 24 Hours (Table) 06/13/22 23:40 Blood Culture - Preliminary Blood 06/13/22 23:17 Blood Culture - Preliminary Blood
--- NOTE | 2022-06-18 15:49 | P.PN ---
Subjective Progress Note Date: 06/18/22 Principal diagnosis: Hx lymphoma In f/u today pt cont to have abd pain, constipation, general malaise, "don't feel good today". No nausea or vomiting, eating small amts of food from home. Objective - Vital Signs Vital signs: Vital Signs Temp 98.2 F 06/18/22 12:43 Pulse 79 06/18/22 12:43 Resp 18 06/18/22 12:43 BP 117/71 06/18/22 12:43 Pulse Ox 96 06/18/22 12:43 FiO2 Intake & Output 06/17/22 06/18/22 06/18/22 18:59 06:59 18:59 Intake Total 1200 520 Output Total 100 Balance 1200 420 Intake: Intake, IV Titration 1200 Amount Cefepime 2 gm In Sodium 200 Chloride 0.9% 100 ml @ 25 mls/hr IVPB Q8HR [facility] Rx# :[id number] metroNIDAZOLE-NS PMX 500 1000 mg In Saline 1 100ml.bag @ 100 mls/hr IVPB Q8HR [facility] Rx#:[id number] Oral 520 Output: Urine 100 Other: Voiding Method Toilet Toilet Urinal Urinal # Voids 1 - Constitutional General appearance: Present: average body habitus, cooperative, no acute distres s - EENT Eyes: Present: anicteric sclerae, EOMI ENT: Present: hearing grossly normal - Respiratory Details: resp even and unlabored - Cardiovascular Details: skin warm and dry to touch - Gastrointestinal Gastrointestinal Comment(s): rebound tenderness in the LLQ General gastrointestinal: Present: distended, soft, tenderness - Integumentary Integumentary: Present: normal - Neurologic Neurologic: Present: CNII-XII intact - Musculoskeletal Musculoskeletal: Present: generalized weakness, strength equal bilaterally - Psychiatric Psychiatric: Present: A&O x's 3, appropriate affect, intact judgment & insight - Labs CBC & Chem 7: 06/18/22 06:15 06/18/22 06:15 Labs: Abnormal Lab Results - Last 24 Hours (Table) 06/18/22 06/18/22 Range/Units 06:15 06:15 WBC 23.52 H (4.50-10.00) X 10*3/uL RBC 3.99 L (4.40-5.60) X 10*6/uL Hgb 12.2 L (13.0-17.0) g/dL Hct 38.9 L (39.6-50.0) % MCV 97.5 H (80.0-97.0) fL MCHC 31.4 L (32.0-37.0) g/dL Immature Gran # 0.14 H (0.00-0.04) X 10*3/uL Neutrophils # 20.34 H (1.80-7.70) X 10*3/uL Eosinophils # 0.94 H (0.04-0.35) X 10*3/uL Calcium 8.4 L (8.7-10.3) mg/dL Alkaline Phosphatase 159 H (41-126) U/L C-Reactive Protein 15.70 H (0.00-0.80) mg/dL Total Protein 5.1 L (6.2-8.2) g/dL Albumin 2.9 L (3.8-4.9) g/dL Albumin/Globulin Ratio 1.33 L (1.60-3.17) g/dL Microbiology - Last 24 Hours (Table) 06/13/22 23:40 Blood Culture - Preliminary Blood 06/13/22 23:17 Blood Culture - Preliminary Blood Assessment and Plan (1) Abdominal pain Current Visit: Yes Status: Acute Priority: High Code(s): R10.9 - UNSPECIFIED ABDOMINAL PAIN SNOMED Code(s): 45881716 (2) Colitis Current Visit: Yes Status: Acute Priority: High Code(s): K52.9 - NONINFECTIVE GASTROENTERITIS AND COLITIS, UNSPECIFIED SNOMED Code(s): 29635912 (3) Iron deficiency anemia Current Visit: Yes Status: Acute Priority: Medium Code(s): D50.9 - IRON DEFICIENCY ANEMIA, UNSPECIFIED SNOMED Code(s): 67411210 (4) History of lymphoma Current Visit: No Status: Chronic Priority: Low Code(s): Z85.79 - PRSNL HX OF MALIG NEOPLM OF LYMPHOID, HEMATPOETC & REL TISS SNOMED Code(s): 804197017 Plan: Abd pain, colitis -Surgery has seen pt, plans for colonoscopy. Pending results. -Pt c/o constipation, prep for colonoscopy will resolve that Iron def anemia -pt started on IV iron outpt. Reports that his symptoms (progressive weakness, chills, fever, incoherence) started the night of IV iron. Do not think his symptoms are a direct result of IV iron. He has had IV iron before without these symptoms. Will consider resuming IV iron while inpt to see if he tolerates. Wait until after colonoscopy -Transfuse for Hgb<7 Hx lymphoma -Most recent PET 05/25/22-[facility] -He cont on f/u as directed by Dr. Gan
[2022-06-18] MEDS: DILTIAZEM CD 120 MG CAP.ER.24H PO SCH (20:51)
[2022-06-19] MEDS: CEFEPIME 2 GM in SODIUM CHLORIDE 0.9% 100 ML IVPB SCH ×2 (00:16→09:03)
[2022-06-19] MEDS: metroNIDAZOLE-NS PMX 500 MG in SALINE 1 100ML.BAG IVPB SCH ×3 (00:16→15:35)
[2022-06-19] MEDS: diphenhydrAMINE 50 MG/ML 1 ML VIAL IVP PRN ×2 (03:22→11:25)
--- NOTE | 2022-06-19 04:15 | P.PN ---
Subjective Progress Note Date: 06/18/22 This is a pleasant 76-year-old male who presented to the emergency department with feelings of weakness along with fevers that have been ongoing since Saturday. Patient did follow with his oncologist Dr. Ochoa in the outpatient setting on May 04 and had blood work showing a mildly elevated white count of 12 and had been feeling generalized weakness and further labs were drawn including iron studies. reports patient was notified about the low iron recommending an infusion and went and had an IV iron transfusion on Saturday. Patient continued to have worsening symptoms throughout the weekend and persisted with fevers and persistent worsening weakness and encourage the patient to come to the ER for further evaluation. Patient is endorsing some mild abdominal discomfort with possible constipation and denies nausea or vomiting or diarrhea. Patient denies any recent sick contacts but reports this is been ongoing for the last 10 days. Patient reports he followed with his primary care provider Dr. Meza and encouraged follow-up with oncology as well as his cell tender helper. Patient did go to his cell tender helper had some labs drawn along with a chest x-ray showing no acute process and had a cardiac technician on him which was normal with no abnormalities noted. 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 Patient is currently not receiving any active treatment for his lymphoma. Patient did have a chest x-ray here showing no acute cardiopulmonary process in the ER and also underwent a brain CT showing no acute intracranial process with nonspecific white matter changes secondary to chronic small vessel ischemic disease. Patient did have a CT abdomen/pelvis as well showing mild fat stranding changes and inflammation involving the left anterior abdominal fat near the descending colon to correlate for early colitis with no other findings within the abdomen or pelvis to correlate for an infectious or inflammatory process, some inflammation changes around the left kidney that could be secondary to above and to correlate with urinalysis there is no lymphadenopathy identified. Urinalysis was negative and all virology testings including influenza RSV Covid and strep were negative. Patient is having fevers and an elevated white count that was found to be 23.6 on admission. patient was admitted for leukocytosis and possible colitis with infectious disease and oncology on consult. Patient was started on meropenem and cefepime and did receive some fluid boluses in the ER. Lactic acid on admission was 1. 06/15/2022 Patient is seen and evaluated in follow-up this morning and has been afebrile and is being continued on antibiotics with infectious disease following along with oncology. Patient reports to feeling better and denies any abdominal pain and is tolerating diet with no reports of nausea or vomiting noted. Discussed with infectious disease as patient still continues to have an elevated white count of 19 recommend monitoring overnight with continued IV antibiotics. Encouraged increased activity as tolerated and encouraged oral intake. 06/16/2022 Patient is seen and evaluated today currently sitting up at the side of the bed reporting he is not feeling well and continues with nausea and was given some Zofran although continues to report nausea and some abdominal pain. Patient is having fevers and noted to have flush face with generalized malaise. Patient being followed by infectious disease along with oncology and maintained on IV antibiotics and ID recommending repeat CT abdomen is patient's abdomen is tender on palpation. Patient denies chest pain or shortness of breath. Awaiting a.m. labs as WBC remains elevated. 06/17/2022 Patient is seen and evaluated in follow-up this morning continuing to have fevers reporting he is having some nausea with dry heaves denies any diarrhea. Patient does report some diffuse abdominal pain occasionally and repeat CT abdomen with concerns of multifocal colitis. Patient is maintained on cefepime and Flagyl with infectious disease following closely. White count currently pending for this morning and oncology following as well as patient does have a history of mantle cell lymphoma and follows with Dr. Ochoa outpatient. Patient denies chest pain or shortness of breath currently and reports not much of an appetite given his continued nausea. 06/18/2022 Patient is seen in follow-up today sleeping although arousable. Patient is fatigued and continues to have fevers and continued with abdominal pain. Patient generally feels weak and unwell with multiple medical consultations following including infectious disease, oncology, no general surgery. Plan is to initiate bowel prep with possible colonoscopy with Dr. Parr tomorrow. Recommend holding Eliquis for the procedure. Patient is continued on IV cefepime and Flagyl and will continue for now. Patient continues to have low-grade temperatures reports to not eating very well as patient does have some nausea and no reports of vomiting. Patient reports constipation although has been having some bowel movements during admission. Patient denies diarrhea or any blood noted in the stool. Review of systems: Constitutional: reports of fatigue, reports fever, or chills Cardiovascular: No reports of chest pain or palpitations Respiratory: No reports of shortness of breath or cough GI: reports of nausea with some dry heaving today, reports a bowel movement yesterday and none today and having some occasional diffuse abdominal pain : No reports of dysuria or retention Neurovascular: reports of generalized weakness All medications have been reviewed Active Medications Acetaminophen (Acetaminophen Tab 325 Mg Tab) 650 mg PO Q6HR PRN PRN Reason: Mild Pain or Fever > 100.5 Last Admin: 06/18/22 01:53 Dose: 650 mg Albuterol Sulfate (Albuterol Nebulized 2.5 Mg/3 Ml) 2.5 mg INHALATION RT-Q6H PRN PRN Reason: Shortness Of Breath Last Admin: 06/16/22 17:55 Dose: 2.5 mg Alprazolam (Alprazolam 0.25 Mg Tab) 0.25 mg PO BID PRN PRN Reason: Anxiety Last Admin: 06/15/22 20:18 Dose: 0.25 mg Benzocaine/Menthol (Benzocaine/Menthol Lozeng 1 Each Lozenge) 1 each MUCOUS MEM Q4HR PRN PRN Reason: Sore Throat Last Admin: 06/16/22 20:33 Dose: 1 each Diltiazem HCl (Diltiazem Cd 120 Mg Cap.Er.24h) 120 mg PO HS [facility] Last Admin: 06/18/22 20:51 Dose: 120 mg Diphenhydramine HCl (Diphenhydramine 50 Mg/Ml 1 Ml Vial) 25 mg IVP ONCE PRN PRN Reason: Allergy Symptoms Last Admin: 06/19/22 03:22 Dose: 25 mg Flecainide Acetate (Flecainide 50 Mg Tab) 100 mg PO BID [facility] Last Admin: 06/18/22 20:51 Dose: 100 mg Cefepime HCl 2 gm/ Sodium (Chloride) 100 mls @ 25 mls/hr IVPB Q8HR [facility]; Protocol Last Admin: 06/19/22 00:16 Dose: 25 mls/hr Metronidazole 500 mg/ IV (Solution) 100 mls @ 100 mls/hr IVPB Q8HR [facility]; Protocol Last Admin: 06/19/22 00:16 Dose: 100 mls/hr Naloxone HCl (Naloxone 0.4 Mg/Ml 1 Ml Vial) 0.2 mg IV Q2M PRN PRN Reason: Opioid Reversal Ondansetron HCl (Ondansetron 4 Mg/2 Ml Vial) 4 mg IVP Q6HR PRN PRN Reason: Nausea And Vomiting Last Admin: 06/17/22 23:40 Dose: 4 mg PHYSICAL EXAMINATION: GENERAL: The patient is asleep although arousable, alert and oriented x3, Well developed, well nourished. HEENT: Pupils are round and equally reacting to light. EOMI. no scleral icterus. No conjunctival pallor. Normocephalic, atraumatic. No pharyngeal erythema. No thyromegaly. CARDIOVASCULAR: S1 and S2 muffled PULMONARY: diminished breath sounds bilaterally with no wheezing or rhonchi noted. ABDOMEN: soft. tender on exam. non-distended, normoactive bowel sounds. No palpable organomegaly. MUSCULOSKELETAL: No joint swelling or deformity. EXTREMITIES: No cyanosis, clubbing, or pedal edema. NEUROLOGICAL: Gross neurological examination did not reveal any focal deficits. SKIN: No rashes. Flushed and febrile Assessment: Fever with leukocytosis, possibly secondary to acute pharyngitis, or possibility of early signs of colitis or diverticulitis as noted on CT Features of sepsis, present on admission, including fevers and leukocytosis, possible viral etiology with unknown etiology Sore throat, possible acute pharyngitis Diffuse abdominal pain and CT abdomen showing concerns for multifocal colitis Recent iron infusion in the outpatient setting last Saturday History of mantle cell lymphoma History of atrial fibrillation, currently rate controlled History of basal cell carcinoma in 2012, in remission History of aortic aneurysm History bronchitis Lifelong nonsmoker GI prophylaxis DVT prophylaxis Full code Plan: Recommend to continue with current medications and management with infectious disease and oncology following Patient is continued on cefepime and Flagyl. WBC remains elevated and worsened and continues with fevers with concerns of abdominal source and there is no GI coverage and general surgery Dr. Horne was consulted and patient will start bowel prep and will undergo colonoscopy to assess for colitis tomorrow Patient is having fevers again today and also reporting abdominal pain with some nausea and dry heaving Oncology following as patient follows with Dr. Gan for history of for lymphoma, reports most recent PET scan was clear on 05/25/2022 and is not currently receiving treatment Influenza, Covid, RSV, strep all negative WBC remains elevated and will follow-up with repeat labs in the a.m. Blood cultures are negative thus far and urine was negative. pro calcitonin low The impression and plan of care has been dictated by Kika Jorgensen, nurse practitioner as directed. Dr. Corin MD I have performed a history and examination and MDM of this patient, discussed the same with the dictator, and agree with the dictator's assessment and plan as written ,documented as a scribe. Based on total visit time, I have performed more than 50% of the visit. Any additional findings or plans will be noted. Objective - Vital Signs Vital signs: Vital Signs Temp 98.1 F 06/18/22 07:19 Pulse 68 06/18/22 07:19 Resp 16 06/18/22 07:19 BP 100/58 06/18/22 07:19 Pulse Ox 95 06/18/22 07:42 FiO2 Intake & Output 06/17/22 06/18/22 06/18/22 18:59 06:59 18:59 Intake Total 1200 520 Output Total 100 Balance 1200 420 Intake: Intake, IV Titration 1200 Amount Cefepime 2 gm In Sodium 200 Chloride 0.9% 100 ml @ 25 mls/hr IVPB Q8HR [facility] Rx# :[id number] metroNIDAZOLE-NS PMX 500 1000 mg In Saline 1 100ml.bag @ 100 mls/hr IVPB Q8HR [facility] Rx#:[id number] Oral 520 Output: Urine 100 Other: Voiding Method Toilet Toilet Urinal Urinal # Voids 1 - Labs CBC & Chem 7: 06/18/22 06:15 06/18/22 06:15 Labs: Abnormal Lab Results - Last 24 Hours (Table) 06/17/22 Range/Units 04:17 WBC 25.80 H (4.50-10.00) X 10*3/uL RBC 3.97 L (4.40-5.60) X 10*6/uL Hgb 12.2 L (13.0-17.0) g/dL Hct 38.7 L (39.6-50.0) % MCV 97.5 H (80.0-97.0) fL MCHC 31.5 L (32.0-37.0) g/dL RDW 14.6 H (11.5-14.5) % Immature Gran # 0.40 H (0.00-0.04) X 10*3/uL Neutrophils # 22.96 H (1.80-7.70) X 10*3/uL Eosinophils # 0.72 H (0.04-0.35) X 10*3/uL Microbiology - Last 24 Hours (Table) 06/13/22 23:40 Blood Culture - Preliminary Blood 06/13/22 23:17 Blood Culture - Preliminary Blood
[2022-06-19] MEDS: FLECAINIDE 50 MG TAB PO SCH ×2 (08:01→19:37)
[2022-06-19] MEDS ORDERED: diphenhydrAMINE 50 MG/ML 1 ML VIAL IVP PRN (09:15)
[2022-06-19] MEDS ORDERED: CALAMINE/ZINC OXIDE LOTION 177 ML BTL TOPICAL PRN (09:19)
[2022-06-19 11:00] LABS: Basophils # (A) 0.04 X 10*3/uL (0.00-0.10); Basophils % (A) 0.2 %; Eosinophils # (A) 0.85 X 10*3/uL (0.04-0.35); Eosinophils % (A) 4.1 %; HCT 36.3 % (39.6-50.0); HGB 11.4 g/dL (13.0-17.0); Immature Grans, Automated 0.9 %; Lymphocytes # (A) 1.56 X 10*3/uL (0.90-5.00); Lymphocytes % (A) 7.5 %; MCH 30.2 pg (27.0-32.0); MCHC 31.4 g/dL (32.0-37.0); Mean Platelet Volume 10.5 fL (9.5-12.2); Monocytes # (A) 0.67 X 10*3/uL (0.20-1.00); Monocytes % (A) 3.2 %; NRBC Per 100 WBC 0 /100 WBCS (0.0-0.0); Neutrophils # (A) 17.41 X 10*3/uL (1.80-7.70); Neutrophils % (A) 84.1 %; Platelet Count 352 X 10*3/uL (140-440); RBC 3.78 X 10*6/uL (4.40-5.60); RDW 14.5 % (11.5-14.5); WBC 20.71 X 10*3/uL (4.50-10.00)
[2022-06-19 11:27] LABS: African American GFR (CKD) 107.7 (60.0-200.0); Anion Gap 12.2 mmol/L (10.00-18.00); BUN/Creat Ratio 18.43 Ratio (12.00-20.00); Blood Urea Nitrogen 12.9 mg/dL (9.0-27.0); Carbon Dioxide 25.8 mmol/L (20.0-27.5); Potassium 3.4 mmol/L (3.5-5.5)
[2022-06-19] MEDS ORDERED: PROPOFOL 10 MG/ML 20 ML VIAL IV ONE (11:36)
[2022-06-19] MEDS ORDERED: IV FLUID CONTINUATION 1,000 ML IV ONE ×2 (11:39)
--- NOTE | 2022-06-19 11:55 | P.PCN ---
Date of Procedure: 06/19/22 Procedure(s) Performed: PREOPERATIVE DIAGNOSIS: Colitis, fevers, leukocytosis POSTOPERATIVE DIAGNOSIS: Normal-appearing colon PROCEDURE: Colonoscopy with random biopsy ANESTHESIA: [facility] [place] SURGEON: Primitivo Horne M.D. SPECIMENS: Random colon ENDOSCOPIC PROCEDURE: The patient was placed on the endoscopy table in the left decubitus position. The Olympus colonoscope was inserted into the anus and passed under direct visualization to the base of the cecum. The appendiceal orifice was visualized. From that point the scope was slowly withdrawn inspecting all surfaces carefully. There were no neoplastic inflammatory or polypoid lesions throughout the cecum, ascending, transverse, descending, sigmoid and rectum. There was no visible diverticulosis noted. Random colonic biopsies were taken given the CAT scan findings of colitis. Digital rectal examination was normal. The patient was taken to the recovery room in stable condition per anesthesia guidelines. RECOMMENDATIONS: Await biopsy results. Resume diet. Continue workup of fever and leukocytosis.
--- NOTE | 2022-06-19 15:03 | P.PN ---
Subjective Progress Note Date: 06/19/22 Principal diagnosis: hx lymphoma and EMMA At today's visit patient is resting comfortably in bed, at bedside. Patient reports feeling better today. Reports pruritic rash on BLE and back. He has been trying hydrocortisone 1% without relief in symptoms. Benadryl and calmospetine ordered. If symptoms persist will consider topical corticosteroid. No fever in the last 48hrs. He continues on IV antibiotics. Scheduled for colonoscopy today. No other reported complaints at this time Objective - Vital Signs Vital signs: Vital Signs Temp 97.9 F 06/19/22 07:55 Pulse 86 06/19/22 07:55 Resp 18 06/19/22 07:55 BP 152/74 06/19/22 07:55 Pulse Ox 99 06/19/22 07:55 FiO2 Intake & Output 06/18/22 06/19/22 06/19/22 18:59 06:59 18:59 Intake Total 240 100 Balance 240 100 Intake: IV 100 Oral 240 Other: Voiding Method Toilet Toilet Urinal # Voids 3 2 # Bowel Movements 4 2 - Constitutional General appearance: Present: average body habitus, no acute distress - EENT Eyes: Present: anicteric sclerae, EOMI ENT: Present: hearing grossly normal - Respiratory Details: Breathing is even and unlabored - Cardiovascular Details: Skin warm and dry - Integumentary Integumentary Comment(s): Macular papular rash present on back, macular rash on bilateral lower extremities Integumentary: Present: rash - Neurologic Neurologic Comment(s): Grossly intact - Musculoskeletal Musculoskeletal: Present: strength equal bilaterally - Psychiatric Psychiatric: Present: A&O x's 3, appropriate affect, intact judgment & insight - Labs CBC & Chem 7: 06/19/22 05:38 06/19/22 05:38 Labs: Abnormal Lab Results - Last 24 Hours (Table) 06/19/22 06/19/22 Range/Units 05:38 05:38 WBC 20.71 H (4.50-10.00) X 10*3/uL RBC 3.78 L (4.40-5.60) X 10*6/uL Hgb 11.4 L (13.0-17.0) g/dL Hct 36.3 L (39.6-50.0) % MCHC 31.4 L (32.0-37.0) g/dL Immature Gran # 0.18 H (0.00-0.04) X 10*3/uL Neutrophils # 17.41 H (1.80-7.70) X 10*3/uL Eosinophils # 0.85 H (0.04-0.35) X 10*3/uL Potassium 3.4 L (3.5-5.5) mmol/L Calcium 8.0 L (8.7-10.3) mg/dL Microbiology - Last 24 Hours (Table) 06/17/22 12:33 Blood Culture - Preliminary Blood 06/17/22 12:49 Blood Culture - Preliminary Blood 06/13/22 23:40 Blood Culture - Final Blood 06/13/22 23:17 Blood Culture - Final Blood Assessment and Plan (1) Iron deficiency anemia Current Visit: Yes Status: Acute Priority: Medium Code(s): D50.9 - IRON DEFICIENCY ANEMIA, UNSPECIFIED SNOMED Code(s): 78348345 (2) Colitis Current Visit: Yes Status: Acute Priority: High Code(s): K52.9 - NONIN FECTIVE GASTROENTERITIS AND COLITIS, UNSPECIFIED SNOMED Code(s): 00583216 (3) Mantle cell lymphoma Current Visit: No Status: Chronic Priority: Medium Code(s): C83.10 - MANTLE CELL LYMPHOMA, UNSPECIFIED SITE SNOMED Code(s): 748560268 Plan: Colitis: -CT abdomen/pelvis revealed Mild fat stranding changes/inflammation involving the left anterior abdominal fat near the descending colon. Correlate for early colitis. No other finding within the abdomen or pelvis to correlate with infectious inflammatory process. Inflammation changes around the left kidney could be secondary to #1. Correlate with urinalysis. No lymphadenopathy identified. Repeat CT abdomen and pelvis revealed correlated for multifocal colitis with mild but new area of pericolonic stranding at the descending colonic/sigmoid colonic junction. -Scheduled for colonoscopy today -Continues on cefepime and flagyl. -Blood cultures negative, repeat cultures pending -No fever last 48 hrs. Flu, RSV, COVID and strep negative -Defer management to ID/IM team EMMA: -Hx of EMMA. Hemoglobin stable -Received last infusion of Feraheme on 06/08/22. Iron studies on 06/06/22 revealed iron 23, iron sat 9%, ferritin 745. -Will hold iron infusions at this time, due to acute infectious process Hx mantle cell lymphoma: -Dx 2012. 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
[2022-06-19] MEDS: AZTREONAM 2 GM in SODIUM CHLORIDE 0.9% 100 ML IVPB SCH (17:22)
[2022-06-19] MEDS: DILTIAZEM CD 120 MG CAP.ER.24H PO SCH (19:37)
[2022-06-19] MEDS: APIXABAN 5 MG TAB PO SCH (21:03)
[2022-06-20] MEDS: metroNIDAZOLE-NS PMX 500 MG in SALINE 1 100ML.BAG IVPB SCH ×4 (00:02→23:56)
[2022-06-20] MEDS: AZTREONAM 2 GM in SODIUM CHLORIDE 0.9% 100 ML IVPB SCH ×3 (01:08→17:32)
--- NOTE | 2022-06-20 05:33 | P.PN ---
Subjective Progress Note Date: 06/19/22 This is a pleasant 76-year-old male who presented to the emergency department with feelings of weakness along with fevers that have been ongoing since Saturday. Patient did follow with his oncologist Dr. Ochoa in the outpatient setting on May 04 and had blood work showing a mildly elevated white count of 12 and had been feeling generalized weakness and further labs were drawn including iron studies. reports patient was notified about the low iron recommending an infusion and went and had an IV iron transfusion on Saturday. Patient continued to have worsening symptoms throughout the weekend and persisted with fevers and persistent worsening weakness and encourage the patient to come to the ER for further evaluation. Patient is endorsing some mild abdominal discomfort with possible constipation and denies nausea or vomiting or diarrhea. Patient denies any recent sick contacts but reports this is been ongoing for the last 10 days. Patient reports he followed with his primary care provider Dr. Meza and encouraged follow-up with oncology as well as his research programmer. Patient did go to his research programmer had some labs drawn along with a chest x-ray showing no acute process and had a rn cardiac rehab on him which was normal with no abnormalities noted. 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 Patient is currently not receiving any active treatment for his lymphoma. Patient did have a chest x-ray here showing no acute cardiopulmonary process in the ER and also underwent a brain CT showing no acute intracranial process with nonspecific white matter changes secondary to chronic small vessel ischemic disease. Patient did have a CT abdomen/pelvis as well showing mild fat stranding changes and inflammation involving the left anterior abdominal fat near the descending colon to correlate for early colitis with no other findings within the abdomen or pelvis to correlate for an infectious or inflammatory process, some inflammation changes around the left kidney that could be secondary to above and to correlate with urinalysis there is no lymphadenopathy identified. Urinalysis was negative and all virology testings including influenza RSV Covid and strep were negative. Patient is having fevers and an elevated white count that was found to be 23.6 on admission. patient was admitted for leukocytosis and possible colitis with infectious disease and oncology on consult. Patient was started on meropenem and cefepime and did receive some fluid boluses in the ER. Lactic acid on admission was 1. 06/15/2022 Patient is seen and evaluated in follow-up this morning and has been afebrile and is being continued on antibiotics with infectious disease following along with oncology. Patient reports to feeling better and denies any abdominal pain and is tolerating diet with no reports of nausea or vomiting noted. Discussed with infectious disease as patient still continues to have an elevated white count of 19 recommend monitoring overnight with continued IV antibiotics. Encouraged increased activity as tolerated and encouraged oral intake. 06/16/2022 Patient is seen and evaluated today currently sitting up at the side of the bed reporting he is not feeling well and continues with nausea and was given some Zofran although continues to report nausea and some abdominal pain. Patient is having fevers and noted to have flush face with generalized malaise. Patient being followed by infectious disease along with oncology and maintained on IV antibiotics and ID recommending repeat CT abdomen is patient's abdomen is tender on palpation. Patient denies chest pain or shortness of breath. Awaiting a.m. labs as WBC remains elevated. 06/17/2022 Patient is seen and evaluated in follow-up this morning continuing to have fevers reporting he is having some nausea with dry heaves denies any diarrhea. Patient does report some diffuse abdominal pain occasionally and repeat CT abdomen with concerns of multifocal colitis. Patient is maintained on cefepime and Flagyl with infectious disease following closely. White count currently pending for this morning and oncology following as well as patient does have a history of mantle cell lymphoma and follows with Dr. Ochoa outpatient. Patient denies chest pain or shortness of breath currently and reports not much of an appetite given his continued nausea. 06/18/2022 Patient is seen in follow-up today sleeping although arousable. Patient is fatigued and continues to have fevers and continued with abdominal pain. Patient generally feels weak and unwell with multiple medical consultations following including infectious disease, oncology, no general surgery. Plan is to initiate bowel prep with possible colonoscopy with Dr. Parr tomorrow. Recommend holding Eliquis for the procedure. Patient is continued on IV cefepime and Flagyl and will continue for now. Patient continues to have low-grade temperatures reports to not eating very well as patient does have some nausea and no reports of vomiting. Patient reports constipation although has been having some bowel movements during admission. Patient denies diarrhea or any blood noted in the stool. 06/19/2022 Patient is seen in follow-up this morning is reporting generalized itchy rash noted throughout and is being monitored closely with infectious disease maintained on antibiotics in the form of cefepime and Flagyl. General surgery following with plans of colonoscopy today and has completed bowel prep. Patient is denying chest pain or shortness of breath, continues to report some diffuse abdominal pain and is afebrile today. No reports of nausea or vomiting and able to tolerate the GoLYTELY prep and is currently nothing by mouth. Review of systems: Constitutional: reports of fatigue, reports fever, or chills Cardiovascular: No reports of chest pain or palpitations Respiratory: No reports of shortness of breath or cough GI: no reports of nausea or vomiting, had multiple bowel movements as he just underwent bowel prep last night : No reports of dysuria or retention Neurovascular: reports of generalized weakness and generalized itchy rash All medications have been reviewed Active Medications Acetaminophen (Acetaminophen Tab 325 Mg Tab) 650 mg PO Q6HR PRN PRN Reason: Mild Pain or Fever > 100.5 Last Admin: 06/18/22 01:53 Dose: 650 mg Albuterol Sulfate (Albuterol Nebulized 2.5 Mg/3 Ml) 2.5 mg INHALATION RT-Q6H PRN PRN Reason: Shortness Of Breath Last Admin: 06/16/22 17:55 Dose: 2.5 mg Alprazolam (Alprazolam 0.25 Mg Tab) 0.25 mg PO BID PRN PRN Reason: Anxiety Last Admin: 06/15/22 20:18 Dose: 0.25 mg Apixaban (Apixaban 5 Mg Tab) 5 mg PO BID [facility]; Protocol Last Admin: 06/19/22 21:03 Dose: 5 mg Benzocaine/Menthol (Benzocaine/Menthol Lozeng 1 Each Lozenge) 1 each MUCOUS MEM Q4HR PRN PRN Reason: Sore Throat Last Admin: 06/16/22 20:33 Dose: 1 each Calamine (Calamine/Zinc Oxide Lotion 177 Ml Btl) 1 applic TOPICAL QID PRN; Protocol PRN Reason: Skin Irritation Last Admin: 06/19/22 17:22 Dose: 1 applic Diltiazem HCl (Diltiazem Cd 120 Mg Cap.Er.24h) 120 mg PO HS [facility] Last Admin: 06/19/22 19:37 Dose: 120 mg Diphenhydramine HCl (Diphenhydramine 50 Mg/Ml 1 Ml Vial) 25 mg IVP ONCE PRN PRN Reason: Allergy Symptoms Last Admin: 06/19/22 11:25 Dose: 25 mg Diphenhydramine HCl (Diphenhydramine 50 Mg/Ml 1 Ml Vial) 25 mg IVP TID PRN PRN Reason: Allergy Symptoms Last Admin: 06/20/22 03:44 Dose: 25 mg Flecainide Acetate (Flecainide 50 Mg Tab) 100 mg PO BID [facility] Last Admin: 06/19/22 19:37 Dose: 100 mg Metronidazole 500 mg/ IV (Solution) 100 mls @ 100 mls/hr IVPB Q8HR [facility]; Protocol Last Admin: 06/20/22 00:02 Dose: 100 mls/hr Aztreonam 2 gm/ Sodium (Chloride) 100 mls @ 33.3 mls/hr IVPB Q8HR [facility]; Protocol Last Admin: 06/20/22 01:08 Dose: 33.3 mls/hr Naloxone HCl (Naloxone 0.4 Mg/Ml 1 Ml Vial) 0.2 mg IV Q2M PRN PRN Reason: Opioid Reversal Ondansetron HCl (Ondansetron 4 Mg/2 Ml Vial) 4 mg IVP Q6HR PRN PRN Reason: Nausea And Vomiting Last Admin: 06/17/22 23:40 Dose: 4 mg PHYSICAL EXAMINATION: GENERAL: The patient is awake, alert and oriented x3, Well developed, well nourished. HEENT: Pupils are round and equally reacting to light. EOMI. no scleral icterus. No conjunctival pallor. Normocephalic, atraumatic. No pharyngeal erythema. No thyromegaly. CARDIOVASCULAR: S1 and S2 muffled PULMONARY: diminished breath sounds bilaterally with no wheezing or rhonchi noted. ABDOMEN: soft. tender on exam. non-distended, normoactive bowel sounds. No palpable organomegaly. MUSCULOSKELETAL: No joint swelling or deformity. EXTREMITIES: No cyanosis, clubbing, or pedal edema. NEUROLOGICAL: Gross neurological examination did not reveal any focal deficits. SKIN: Generalized hive-like rash noted of bilateral lower extremities including abdomen back and upper extremities. Flushed Assessment: Fever with leukocytosis, possibly secondary to acute pharyngitis, or possibility of early signs of colitis or diverticulitis as noted on CT Features of sepsis, present on admission, including fevers and leukocytosis, possible viral etiology with unknown etiology Generalized rash, likely reaction to medications Sore throat, possible acute pharyngitis Diffuse abdominal pain and CT abdomen showing concerns for multifocal colitis Recent iron infusion in the outpatient setting last Saturday History of mantle cell lymphoma History of atrial fibrillation, currently rate controlled History of basal cell carcinoma in 2013, in remission History of aortic aneurysm History bronchitis Lifelong nonsmoker GI prophylaxis DVT prophylaxis Full code Plan: Recommend to continue with current medications and management with infectious disease and oncology following Patient is continued on cefepime and Flagyl. WBC remains elevated with morning labs pending. Patient developed a generalized raised hive-like rash most likely ALLERGIC reaction to medications and cefepime discontinued with anxiety following and reviewing. IV Benadryl added as needed and have ordered calamine lotion there is no GI coverage and general surgery Dr. Horne following will undergo colonoscopy to assess for colitis Patient is currently afebrile and has completed a bowel prep nothing by mouth at this time Oncology following as patient follows with Dr. Gan for history of for lymphoma, reports most recent PET scan was clear on 05/25/2022 and is not currently receiving treatment Awaiting follow-up labs Will await colonoscopy report and discuss further with surgery about when to resume anticoagulation as this was held for colonoscopy The impression and plan of care has been dictated by Kika Jorgensen, nurse practitioner as directed. Dr. Corin MD I have performed a history and examination and MDM of this patient, discussed the same with the dictator, and agree with the dictator's assessment and plan as written ,documented as a scribe. Based on total visit time, I have performed more than 50% of the visit. Any additional findings or plans will be noted. Objective - Vital Signs Vital signs: Vital Signs Temp 97.9 F 06/19/22 07:55 Pulse 86 06/19/22 07:55 Resp 18 06/19/22 07:55 BP 152/74 06/19/22 07:55 Pulse Ox 99 06/19/22 07:55 FiO2 Intake & Output 06/18/22 06/19/22 06/19/22 18:59 06:59 18:59 Intake Total 240 Balance 240 Intake: Oral 240 Other: Voiding Method Toilet Toilet Urinal # Voids 3 2 # Bowel Movements 4 2 - Labs CBC & Chem 7: 06/19/22 05:38 06/19/22 05:38 Labs: Abnormal Lab Results - Last 24 Hours (Table) 06/18/22 06/18/22 Range/Units 06:15 06:15 WBC 23.52 H (4.50-10.00) X 10*3/uL RBC 3.99 L (4.40-5.60) X 10*6/uL Hgb 12.2 L (13.0-17.0) g/dL Hct 38.9 L (39.6-50.0) % MCV 97.5 H (80.0-97.0) fL MCHC 31.4 L (32.0-37.0) g/dL Immature Gran # 0.14 H (0.00-0.04) X 10*3/uL Neutrophils # 20.34 H (1.80-7.70) X 10*3/uL Eosinophils # 0.94 H (0.04-0.35) X 10*3/uL Calcium 8.4 L (8.7-10.3) mg/dL Alkaline Phosphatase 159 H (41-126) U/L C-Reactive Protein 15.70 H (0.00-0.80) mg/dL Total Protein 5.1 L (6.2-8.2) g/dL Albumin 2.9 L (3.8-4.9) g/dL Albumin/Globulin Ratio 1.33 L (1.60-3.17) g/dL Microbiology - Last 24 Hours (Table) 06/13/22 23:40 Blood Culture - Preliminary Blood 06/13/22 23:17 Blood Culture - Preliminary Blood
[2022-06-20] MEDS: APIXABAN 5 MG TAB PO SCH ×2 (08:10→22:02)
[2022-06-20] MEDS: FLECAINIDE 50 MG TAB PO SCH ×2 (08:10→22:03)
--- NOTE | 2022-06-20 10:19 | P.PN ---
Subjective Progress Note Date: 06/20/22 CHIEF COMPLAINT: Colitis HISTORY OF PRESENT ILLNESS: Patient is status post colonoscopy with random biops ies. Colonoscopy was normal appearing. Patient continues to complain of abdominal discomfort more in the lower abdomen and left lower quadrant. He denies any nausea or vomiting. Oral intakes decreased. Afebrile. WBC from yesterday of 20.7 labs from today pending PHYSICAL EXAM: VITAL SIGNS: Reviewed. GENERAL: Well-developed in no acute distress. HEENT: No sclera icterus. Extraocular movements grossly intact. Moist buccal mucosa. Head is atraumatic, normocephalic. ABDOMEN: Soft. Nondistended. Mild discomfort with palpation lower abdomen and NEUROLOGIC: Alert and oriented ASSESSMENT: 1. Colitis with normal colonoscopy 2. History of lymphoma PLAN: -Continue regular diet -Continue workup for fever and leukocytosis -Follow up on biopsy results -Continue supportive care Physician Director Of Speech Pathology note has been reviewed by physician. Signing provider agrees with the documented findings, assessment, and plan of care. I have personally seen and examined the patient, reviewed the TACTICAL DECEPTION PLANS OFFICER /PAs history, exam and MDM and agree with the assessment and plan as written. Based on total visit time, I have performed more than 50% of the visit. As above: Patient having some mild nausea and bloating sensation. Small amount of loose stools. No significant bleeding after colonoscopy yesterday. White blood cell count slightly improved at 17. Patient complaining of lower extremity swelling with rash. Etiology for the patient's abdominal complaints remains unclear. IV Flagyl may be contributing somewhat. Continue encouraging oral intake. We'll follow. Objective - Vital Signs Vital signs: Vital Signs Temp 98.4 F 06/20/22 07:21 Pulse 76 06/20/22 07:21 Resp 18 06/20/22 07:21 BP 154/82 06/20/22 07:21 Pulse Ox 94 L 06/20/22 07:21 FiO2 Intake & Output 06/19/22 06/20/22 06/20/22 18:59 06:59 18:59 Intake Total 100 Balance 100 Intake: IV 100 Other: Voiding Method Toilet Toilet # Voids 2 - Labs CBC & Chem 7: 06/20/22 07:25 06/19/22 05:38 Labs: Abnormal Lab Results - Last 24 Hours (Table) 06/19/22 06/19/22 Range/Units 05:38 05:38 WBC 20.71 H (4.50-10.00) X 10*3/uL RBC 3.78 L (4.40-5.60) X 10*6/uL Hgb 11.4 L (13.0-17.0) g/dL Hct 36.3 L (39.6-50.0) % MCHC 31.4 L (32.0-37.0) g/dL Immature Gran # 0.18 H (0.00-0.04) X 10*3/uL Neutrophils # 17.41 H (1.80-7.70) X 10*3/uL Eosinophils # 0.85 H (0.04-0.35) X 10*3/uL Potassium 3.4 L (3.5-5.5) mmol/L Calcium 8.0 L (8.7-10.3) mg/dL Microbiology - Last 24 Hours (Table) 06/17/22 12:33 Blood Culture - Preliminary Blood 06/17/22 12:49 Blood Culture - Preliminary Blood 06/13/22 23:40 Blood Culture - Final Blood 06/13/22 23:17 Blood Culture - Final Blood
[2022-06-20 11:14] LABS: Basophils # (A) 0.04 X 10*3/uL (0.00-0.10); Basophils % (A) 0.2 %; Eosinophils # (A) 0.63 X 10*3/uL (0.04-0.35); Eosinophils % (A) 3.6 %; HCT 38.5 % (39.6-50.0); Immature Grans, Automated 0.6 %; Lymphocytes # (A) 1.53 X 10*3/uL (0.90-5.00); Lymphocytes % (A) 8.8 %; MCH 29.9 pg (27.0-32.0); MCHC 31.2 g/dL (32.0-37.0); Mean Platelet Volume 10.6 fL (9.5-12.2); Monocytes # (A) 0.55 X 10*3/uL (0.20-1.00); Monocytes % (A) 3.2 %; NRBC Per 100 WBC 0 /100 WBCS (0.0-0.0); Neutrophils % (A) 83.6 %; Platelet Count 351 X 10*3/uL (140-440); RBC 4.01 X 10*6/uL (4.40-5.60); RDW 14.1 % (11.5-14.5); WBC 17.36 X 10*3/uL (4.50-10.00)
[2022-06-20 11:29] LABS: Anion Gap 10.7 mmol/L (10.00-18.00); BUN/Creat Ratio 13.88 Ratio (12.00-20.00); Blood Urea Nitrogen 11.1 mg/dL (9.0-27.0); Calcium 7.9 mg/dL (8.7-10.3); Carbon Dioxide 26.3 mmol/L (20.0-27.5); Potassium 3.3 mmol/L (3.5-5.5)
--- NOTE | 2022-06-20 12:04 | P.PN ---
Subjective Progress Note Date: 06/19/22 Principal diagnosis: Fever/colitis Patient is a 76-year-old male with a past medical history significant for lymphoma currently in remission and recently received an iron transfusion presenting to the hospital with symptoms of some mental status changes the patient also complaining of sore throat and lower abdominal discomfort, patient did have a CT abdominal pelvis suspicious for colitis involving the sigmoid region. Patient is status post colonoscopy on 06/19/2022 apparently normal- appearing colon, random biopsies were done On today's evaluation that is 06/19/2022, the patient remains to be afebrile, patient has developed a rash to the trunk and bilateral lower extremity with some swelling, denies any chest pain or shortness of breath no tongue swelling no vomiting or diarrhea Objective - Vital Signs Vital signs: Vital Signs Temp 97.9 F 06/19/22 07:55 Pulse 86 06/19/22 07:55 Resp 18 06/19/22 07:55 BP 152/74 06/19/22 07:55 Pulse Ox 99 06/19/22 07:55 FiO2 Intake & Output 06/18/22 06/19/22 06/19/22 18:59 06:59 18:59 Intake Total 240 Balance 240 Intake: Oral 240 Other: Voiding Method Toilet Toilet Urinal # Voids 3 2 # Bowel Movements 4 2 - Exam GENERAL DESCRIPTION: An elderly male lying in bed in no distress RESPIRATORY SYSTEM: Unlabored breathing , decreased breath sounds at bases HEART: S1 S2 regular rate and rhythm , ABDOMEN: Soft , mild distention but no tenderness EXTREMITIES: No edema feet - Labs CBC & Chem 7: 06/20/22 07:25 06/20/22 07:25 Labs: Abnormal Lab Results - Last 24 Hours (Table) 06/18/22 06/18/22 06/19/22 Range/Units 06:15 06:15 05:38 WBC 23.52 H 20.71 H (4.50-10.00) X 10*3/uL RBC 3.99 L 3.78 L (4.40-5.60) X 10*6/uL Hgb 12.2 L 11.4 L (13.0-17.0) g/dL Hct 38.9 L 36.3 L (39.6-50.0) % MCV 97.5 H (80.0-97.0) fL MCHC 31.4 L 31.4 L (32.0-37.0) g/dL Immature Gran # 0.14 H 0.18 H (0.00-0.04) X 10*3/uL Neutrophils # 20.34 H 17.41 H (1.80-7.70) X 10*3/uL Eosinophils # 0.94 H 0.85 H (0.04-0.35) X 10*3/uL Calcium 8.4 L (8.7-10.3) mg/dL Alkaline Phosphatase 159 H (41-126) U/L C-Reactive Protein 15.70 H (0.00-0.80) mg/dL Total Protein 5.1 L (6.2-8.2) g/dL Albumin 2.9 L (3.8-4.9) g/dL Albumin/Globulin Ratio 1.33 L (1.60-3.17) g/dL Microbiology - Last 24 Hours (Table) 06/17/22 12:33 Blood Culture - Preliminary Blood 06/17/22 12:49 Blood Culture - Preliminary Blood 06/13/22 23:40 Blood Culture - Final Blood 06/13/22 23:17 Blood Culture - Final Blood Assessment and Plan (1) Colitis Current Visit: Yes Status: Acute Priority: High Code(s): K52.9 - NONINFECTIVE GASTROENTERITIS AND COLITIS, UNSPECIFIED SNOMED Code(s): 83176360 (2) Febrile illness Current Visit: Yes Status: Acute Code(s): R50.9 - FEVER, UNSPECIFIED SNOMED Code(s): 583888583 Plan: 1patient presented to hospital with fever did have elevated white count with abdominal pain and constipation meeting criteria for sepsis source is likely colitis/diverticulitis and need to cover for enteric gram-negative both anaerobes and anaerobes, abnormality to the left kidney described on the CT however the patient did have a negative UA and no urinary symptoms 2-patient with a penicillin allergy that would limit the number of antibiotics safe to use 3-patient did have a new fever and white count is still elevated, with repeat his CT of abdominal pelvis with contrast did shows evidence of multifocal colitis with a question of possible ischemic, however the patient did have colonoscopy completed by surgery and apparently normal-appearing colon However biopsies has been done, 4-patient has developed a rash could be related to cefepime which has been discontinued he will add Azactam and continue with the Flagyl while awaiting further workup to complete Time with Patient: Less than 30
--- NOTE | 2022-06-20 12:06 | P.PN ---
Subjective Progress Note Date: 06/20/22 Principal diagnosis: Fever/colitis Patient is a 76-year-old male with a past medical history significant for lymphoma currently in remission and recently received an iron transfusion presenting to the hospital with symptoms of some mental status changes the patient also complaining of sore throat and lower abdominal discomfort, patient did have a CT abdominal pelvis suspicious for colitis involving the sigmoid region. Patient is status post colonoscopy on 06/19/2022 apparently normal- appearing colon, random biopsies were done On today's evaluation that is 06/20/2022, the patient continues to be afebrile, patient has complaining of itching and discomfort to bilateral lower extremity the patient denies any chest pain or shortness of breath , no chest pain or co ugh no vomiting or diarrhea Objective - Vital Signs Vital signs: Vital Signs Temp 98.4 F 06/20/22 07:21 Pulse 76 06/20/22 07:21 Resp 18 06/20/22 07:21 BP 154/82 06/20/22 07:21 Pulse Ox 94 L 06/20/22 07:21 FiO2 Intake & Output 06/19/22 06/20/22 06/20/22 18:59 06:59 18:59 Intake Total 100 Balance 100 Intake: IV 100 Other: Voiding Method Toilet Toilet # Voids 2 - Exam GENERAL DESCRIPTION: An elderly male lying in bed in no distress RESPIRATORY SYSTEM: Unlabored breathing , decreased breath sounds at bases HEART: S1 S2 regular rate and rhythm , ABDOMEN: Soft , mild distention but no tenderness EXTREMITIES: No edema feet - Labs CBC & Chem 7: 06/20/22 07:25 06/20/22 07:25 Labs: Abnormal Lab Results - Last 24 Hours (Table) 06/19/22 06/19/22 Range/Units 05:38 05:38 WBC 20.71 H (4.50-10.00) X 10*3/uL RBC 3.78 L (4.40-5.60) X 10*6/uL Hgb 11.4 L (13.0-17.0) g/dL Hct 36.3 L (39.6-50.0) % MCHC 31.4 L (32.0-37.0) g/dL Immature Gran # 0.18 H (0.00-0.04) X 10*3/uL Neutrophils # 17.41 H (1.80-7.70) X 10*3/uL Eosinophils # 0.85 H (0.04-0.35) X 10*3/uL Potassium 3.4 L (3.5-5.5) mmol/L Calcium 8.0 L (8.7-10.3) mg/dL Microbiology - Last 24 Hours (Table) 06/17/22 12:33 Blood Culture - Preliminary Blood 06/17/22 12:49 Blood Culture - Preliminary Blood 06/13/22 23:40 Blood Culture - Final Blood 06/13/22 23:17 Blood Culture - Final Blood Assessment and Plan (1) Colitis Current Visit: Yes Status: Acute Priority: High Code(s): K52.9 - NONINFECTIVE GASTROENTERITIS AND COLITIS, UNSPECIFIED SNOMED Code(s): 39290885 (2) Febrile illness Current Visit: Yes Status: Acute Code(s): R50.9 - FEVER, UNSPECIFIED SNOMED Code(s): 382397415 Plan: 1patient presented to hospital with fever did have elevated white count with abdominal pain and constipation meeting criteria for sepsis source is likely colitis/diverticulitis and need to cover for enteric gram-negative both anaerobes and anaerobes, abnormality to the left kidney described on the CT however the patient did have a negative UA and no urinary symptoms 2-patient with a penicillin allergy that would limit the number of antibiotics safe to use 3-patient did have a new fever and white count is still elevated, with repeat his CT of abdominal pelvis with contrast did shows evidence of multifocal colitis with a question of possible ischemic, however the patient did have colonoscopy completed by surgery and apparently normal-appearing colon However biopsies has been done, reports currently pending 4-patient has developed a rash could be related to cefepime which has been discontinued , did have significant concern and lower extremity we will apply James wrap to get the swelling down 5-patient to continue with Azactam and Flagyl with white count trending down and monitor clinical course closely Time with Patient: Less than 30
[2022-06-20] MEDS ORDERED: POTASSIUM CHLORIDE ER 20 MEQ TAB.ER PO STA (12:30)
[2022-06-20 13:21] VITALS: BMI 24.3
--- NOTE | 2022-06-20 16:05 | P.PN ---
Subjective Progress Note Date: 06/20/22 This is a pleasant 76-year-old male who presented to the emergency department with feelings of weakness along with fevers that have been ongoing since Saturday. Patient did follow with his oncologist Dr. Ochoa in the outpatient setting on May 04 and had blood work showing a mildly elevated white count of 12 and had been feeling generalized weakness and further labs were drawn including iron studies. reports patient was notified about the low iron recommending an infusion and went and had an IV iron transfusion on Saturday. Patient continued to have worsening symptoms throughout the weekend and persisted with fevers and persistent worsening weakness and encourage the patient to come to the ER for further evaluation. Patient is endorsing some mild abdominal discomfort with possible constipation and denies nausea or vomiting or diarrhea. Patient denies any recent sick contacts but reports this is been ongoing for the last 10 days. Patient reports he followed with his primary care provider Dr. Meza and encouraged follow-up with oncology as well as his manager area. Patient did go to his manager area had some labs drawn along with a chest x-ray showing no acute process and had a director of cardiac cath lab on him which was normal with no abnormalities noted. 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 Patient is currently not receiving any active treatment for his lymphoma. Patient did have a chest x-ray here showing no acute cardiopulmonary process in the ER and also underwent a brain CT showing no acute intracranial process with nonspecific white matter changes secondary to chronic small vessel ischemic disease. Patient did have a CT abdomen/pelvis as well showing mild fat stranding changes and inflammation involving the left anterior abdominal fat near the descending colon to correlate for early colitis with no other findings within the abdomen or pelvis to correlate for an infectious or inflammatory process, some inflammation changes around the left kidney that could be secondary to above and to correlate with urinalysis there is no lymphadenopathy identified. Urinalysis was negative and all virology testings including influenza RSV Covid and strep were negative. Patient is having fevers and an elevated white count that was found to be 23.6 on admission. patient was admitted for leukocytosis and possible colitis with infectious disease and oncology on consult. Patient was started on meropenem and cefepime and did receive some fluid boluses in the ER. Lactic acid on admission was 1. 06/15/2022 Patient is seen and evaluated in follow-up this morning and has been afebrile and is being continued on antibiotics with infectious disease following along with oncology. Patient reports to feeling better and denies any abdominal pain and is tolerating diet with no reports of nausea or vomiting noted. Discussed with infectious disease as patient still continues to have an elevated white count of 19 recommend monitoring overnight with continued IV antibiotics. Encouraged increased activity as tolerated and encouraged oral intake. 06/16/2022 Patient is seen and evaluated today currently sitting up at the side of the bed reporting he is not feeling well and continues with nausea and was given some Zofran although continues to report nausea and some abdominal pain. Patient is having fevers and noted to have flush face with generalized malaise. Patient being followed by infectious disease along with oncology and maintained on IV antibiotics and ID recommending repeat CT abdomen is patient's abdomen is tender on palpation. Patient denies chest pain or shortness of breath. Awaiting a.m. labs as WBC remains elevated. 06/17/2022 Patient is seen and evaluated in follow-up this morning continuing to have fevers reporting he is having some nausea with dry heaves denies any diarrhea. Patient does report some diffuse abdominal pain occasionally and repeat CT abdomen with concerns of multifocal colitis. Patient is maintained on cefepime and Flagyl with infectious disease following closely. White count currently pending for this morning and oncology following as well as patient does have a history of mantle cell lymphoma and follows with Dr. Ochoa outpatient. Patient denies chest pain or shortness of breath currently and reports not much of an appetite given his continued nausea. 06/18/2022 Patient is seen in follow-up today sleeping although arousable. Patient is fatigued and continues to have fevers and continued with abdominal pain. Patient generally feels weak and unwell with multiple medical consultations following including infectious disease, oncology, no general surgery. Plan is to initiate bowel prep with possible colonoscopy with Dr. Parr tomorrow. Recommend holding Eliquis for the procedure. Patient is continued on IV cefepime and Flagyl and will continue for now. Patient continues to have low-grade temperatures reports to not eating very well as patient does have some nausea and no reports of vomiting. Patient reports constipation although has been having some bowel movements during admission. Patient denies diarrhea or any blood noted in the stool. 06/19/2022 Patient is seen in follow-up this morning is reporting generalized itchy rash noted throughout and is being monitored closely with infectious disease maintained on antibiotics in the form of cefepime and Flagyl. General surgery following with plans of colonoscopy today and has completed bowel prep. Patient is denying chest pain or shortness of breath, continues to report some diffuse abdominal pain and is afebrile today. No reports of nausea or vomiting and able to tolerate the GoLYTELY prep and is currently nothing by mouth. 06/20/2022 Patient is seen and evaluated in follow-up today currently maintained on IV antibiotics with infectious disease and general surgery following. Patient underwent colonoscopy yesterday which showed a normal-appearing colon and multiple biopsies were obtained. Patient antibiotics have been changed to aztreonam along with Flagyl and patient is continued on as needed Benadryl along with calamine lotion showing some improvements in the questionable ALLERGIC reaction of medications. Cefepime was discontinued yesterday. Patient reports oral intake is poor and has not felt very hungry and continues with some diffuse abdominal pain in the left lower quadrant. Patient denies any pain or frequency with urination. White count is trending down and today is 17.36 with a hemoglobin of 12.0. Potassium is 3.3 and will replace per protocol and will follow-up with repeat labs. Patient is currently afebrile and has been for the last 2 days and will discuss further with infectious disease along with general surgery about treatment plan moving forward. Currently awaiting biopsy report and oncology is following as well. Encouraged increase activity as tolerated as patient has been mostly lying in the bed. Would recommend getting up and walking around more frequently. Review of systems: Constitutional: reports of fatigue, no reports of fever, or chills Cardiovascular: No reports of chest pain or palpitations Respiratory: No reports of shortness of breath or cough GI: no reports of nausea or vomiting, some diffuse abdominal left lower side pain and decreased oral intake : No reports of dysuria or retention Neurovascular: reports of generalized weakness, generalized itchy rash that is improving All medications have been reviewed Active Medications Acetaminophen (Acetaminophen Tab 325 Mg Tab) 650 mg PO Q6HR PRN PRN Reason: Mild Pain or Fever > 100.5 Last Admin: 06/18/22 01:53 Dose: 650 mg Albuterol Sulfate (Albuterol Nebulized 2.5 Mg/3 Ml) 2.5 mg INHALATION RT-Q6H PRN PRN Reason: Shortness Of Breath Last Admin: 06/16/22 17:55 Dose: 2.5 mg Alprazolam (Alprazolam 0.25 Mg Tab) 0.25 mg PO BID PRN PRN Reason: Anxiety Last Admin: 06/15/22 20:18 Dose: 0.25 mg Apixaban (Apixaban 5 Mg Tab) 5 mg PO BID [facility]; Protocol Last Admin: 06/20/22 08:10 Dose: 5 mg Benzocaine/Menthol (Benzocaine/Menthol Lozeng 1 Each Lozenge) 1 each MUCOUS MEM Q4HR PRN PRN Reason: Sore Throat Last Admin: 06/16/22 20:33 Dose: 1 each Calamine (Calamine/Zinc Oxide Lotion 177 Ml Btl) 1 applic TOPICAL QID PRN; Protocol PRN Reason: Skin Irritation Last Admin: 06/19/22 17:22 Dose: 1 applic Diltiazem HCl (Diltiazem Cd 120 Mg Cap.Er.24h) 120 mg PO HS [facility] Last Admin: 06/19/22 19:37 Dose: 120 mg Diphenhydramine HCl (Diphenhydramine 50 Mg/Ml 1 Ml Vial) 25 mg IVP ONCE PRN PRN Reason: Allergy Symptoms Last Admin: 06/19/22 11:25 Dose: 25 mg Diphenhydramine HCl (Diphenhydramine 50 Mg/Ml 1 Ml Vial) 25 mg IVP TID PRN PRN Reason: Allergy Symptoms Last Admin: 06/20/22 03:44 Dose: 25 mg Flecainide Acetate (Flecainide 50 Mg Tab) 100 mg PO BID [facility] Last Admin: 06/20/22 08:10 Dose: 100 mg Metronidazole 500 mg/ IV (Solution) 100 mls @ 100 mls/hr IVPB Q8HR [facility]; Protocol Last Admin: 06/20/22 08:09 Dose: 100 mls/hr Aztreonam 2 gm/ Sodium (Chloride) 100 mls @ 33.3 mls/hr IVPB Q8HR [facility]; Protocol Last Admin: 06/20/22 09:26 Dose: 33.3 mls/hr Naloxone HCl (Naloxone 0.4 Mg/Ml 1 Ml Vial) 0.2 mg IV Q2M PRN PRN Reason: Opioid Reversal Ondansetron HCl (Ondansetron 4 Mg/2 Ml Vial) 4 mg IVP Q6HR PRN PRN Reason: Nausea And Vomiting Last Admin: 06/17/22 23:40 Dose: 4 mg PHYSICAL EXAMINATION: GENERAL: The patient is awake, alert and oriented x3, Well developed, well nourished. HEENT: Pupils are round and equally reacting to light. EOMI. no scleral icterus. No conjunctival pallor. Normocephalic, atraumatic. No pharyngeal erythema. No thyromegaly. CARDIOVASCULAR: S1 and S2 muffled PULMONARY: diminished breath sounds bilaterally with no wheezing or rhonchi noted. ABDOMEN: soft. tender on exam of the left lower quadrant. non-distended, normoactive bowel sounds. No palpable organomegaly. MUSCULOSKELETAL: No joint swelling or deformity. EXTREMITIES: No cyanosis, clubbing, mild pedal edema mostly dependent. NEUROLOGICAL: Gross neurological examination did not reveal any focal deficits. SKIN: Generalized hive-like rash noted of bilateral lower extremities including abdomen back and upper extremities with significant improvement from yesterday and no longer raised Assessment: Fever with leukocytosis, possibly secondary to acute pharyngitis, or possibility of early signs of colitis or diverticulitis as noted on CT Features of sepsis, present on admission, including fevers and leukocytosis, possible viral etiology with unknown etiology Generalized rash, likely ALLERGIC reaction to possibly cefepime, improving Sore throat, possible acute pharyngitis Diffuse abdominal pain and CT abdomen showing concerns for multifocal colitis Recent iron infusion in the outpatient setting last Saturday History of mantle cell lymphoma History of atrial fibrillation, currently rate controlled History of basal cell carcinoma in 2012, in remission History of aortic aneurysm History bronchitis Lifelong nonsmoker GI prophylaxis DVT prophylaxis Full code Plan: Recommend to continue with current medications and management with infectious disease and oncology following Patient was maintained on cefepime and Flagyl. Possibly ALLERGIC reaction to cefepime which was discontinued and given calamine and Benadryl showing improvements in rash and has been switched to aztreonam and continued on Flagyl with infectious disease following WBC remains elevated although trending down and patient is afebrile for 2 days now. Will discuss further with infectious disease about discharge planning and treatment plan moving forward General surgery Dr. Horne following and patient underwent colonoscopy which appeared normal and multiple biopsies were obtained Patient is tolerating oral intake although extremely fair and not much of an appetite. Encouraged nutritional supplements and food from home if possible Oncology following as patient follows with Dr. Gan for history of for lymphoma, reports most recent PET scan was clear on 05/25/2022 and is not currently receiving treatment Replace electrolytes per protocol and will follow-up with repeat labs in the a.m. Encouraged increased activity as tolerated as patient has been mostly lying in the bed during hospitalization. Will discuss with surgery as well about treatment plan The impression and plan of care has been dictated by Kika Jorgensen, nurse practitioner as directed. Dr. Miguel MD I have performed a history and examination and MDM of this patient, discussed the same with the dictator, and agree with the dictator's assessment and plan as written ,documented as a scribe. Based on total visit time, I have performed more than 50% of the visit. Any additional findings or plans will be noted. Objective - Vital Signs Vital signs: Vital Signs Temp 98.4 F 06/20/22 07:21 Pulse 90 06/20/22 11:44 Resp 18 06/20/22 07:21 BP 154/82 06/20/22 07:21 Pulse Ox 93 L 06/20/22 11:45 FiO2 Intake & Output 06/19/22 06/20/22 06/20/22 18:59 06:59 18:59 Intake Total 100 Balance 100 Intake: IV 100 Other: Voiding Method Toilet Toilet # Voids 2 - Labs CBC & Chem 7: 06/20/22 07:25 06/20/22 07:25 Labs: Abnormal Lab Results - Last 24 Hours (Table) 06/20/22 06/20/22 Range/Units 07:25 07:25 WBC 17.36 H (4.50-10.00) X 10*3/uL RBC 4.01 L (4.40-5.60) X 10*6/uL Hgb 12.0 L (13.0-17.0) g/dL Hct 38.5 L (39.6-50.0) % MCHC 31.2 L (32.0-37.0) g/dL Immature Gran # 0.11 H (0.00-0.04) X 10*3/uL Neutrophils # 14.50 H (1.80-7.70) X 10*3/uL Eosinophils # 0.63 H (0.04-0.35) X 10*3/uL Potassium 3.3 L (3.5-5.5) mmol/L Calcium 7.9 L (8.7-10.3) mg/dL Microbiology - Last 24 Hours (Table) 06/17/22 12:33 Blood Culture - Preliminary Blood 06/17/22 12:49 Blood Culture - Preliminary Blood 06/13/22 23:40 Blood Culture - Final Blood 06/13/22 23:17 Blood Culture - Final Blood
[2022-06-20] MEDS: ONDANSETRON 4 MG/2 ML VIAL IVP PRN (19:43)
[2022-06-20] MEDS: DILTIAZEM CD 120 MG CAP.ER.24H PO SCH (22:03)
[2022-06-20] MEDS: PANTOPRAZOLE 40 MG/10 ML VIAL IVP SCH (22:08)
[2022-06-20] MEDS: ALPRAZolam 0.25 MG TAB PO PRN (22:18)
[2022-06-21] MEDS: AZTREONAM 2 GM in SODIUM CHLORIDE 0.9% 100 ML IVPB SCH ×2 (01:20→09:11)
[2022-06-21] MEDS: APIXABAN 5 MG TAB PO SCH ×2 (08:04→20:47)
[2022-06-21] MEDS: metroNIDAZOLE-NS PMX 500 MG in SALINE 1 100ML.BAG IVPB SCH (08:04)
[2022-06-21] MEDS: PANTOPRAZOLE 40 MG/10 ML VIAL IVP SCH (08:04)
[2022-06-21] MEDS: FLECAINIDE 50 MG TAB PO SCH ×2 (08:04→20:47)
[2022-06-21 09:48] LABS: Basophils % (A) 0 %; Eosinophils # (A) 0.5 k/uL (0-0.7); Eosinophils % (A) 2 %; HCT 40.5 % (39.0-53.0); HGB 12.7 gm/dL (13.0-17.5); Lymphocytes # (A) 1.3 k/uL (1.0-4.8); Lymphocytes % (A) 6 %; MCH 30.2 pg (25.0-35.0); MCHC 31.5 g/dL (31.0-37.0); MCV 95.7 fL (80.0-100.0); Mean Platelet Volume 8.4; Monocytes # (A) 0.5 k/uL (0-1.0); Monocytes % (A) 2 %; Neutrophils # (A) 19.9 k/uL (1.3-7.7); Neutrophils % (A) 89 %; Platelet Count 381 k/uL (150-450); RBC 4.23 m/uL (4.30-5.90); RDW 13.7 % (11.5-15.5); WBC 22.4 k/uL (3.8-10.6)
[2022-06-21 10:03] LABS: African American GFR (CKD) >90 (>60 ml/min/1.73 sqM); Anion Gap 12 mmol/L; Blood Urea Nitrogen 10 mg/dL (9-20); Calcium 7.7 mg/dL (8.4-10.2); Carbon Dioxide 25 mmol/L (22-30); Chloride 98 mmol/L (98-107); Glucose 94 mg/dL (74-99); Non-African American GFR(CKD) >90 (>60 ml/min/1.73 sqM); Potassium 3.7 mmol/L (3.5-5.1); Sodium 135 mmol/L (137-145)
[2022-06-21] MEDS: ACETAMINOPHEN TAB 325 MG TAB PO PRN (11:58)
--- NOTE | 2022-06-21 14:17 | P.PN ---
Subjective Progress Note Date: 06/21/22 CHIEF COMPLAINT: Colitis HISTORY OF PRESENT ILLNESS: Patient is status post colonoscopy with random biops ies. Colonoscopy was normal appearing. Biopsy results benign colonic mucosa. Patient still complains of abdominal discomfort. He is having flatus. Reports decreased appetite. Nausea has improved. Patient did have a fever 103.1 today HR 105 WBC 17-22.4. Antibiotics adjusted per medicine service. Flagyl discontinued. Possibility of Flagyl contributing to the patient's abdominal discomfort PHYSICAL EXAM: VITAL SIGNS: Reviewed. GENERAL: Well-developed in no acute distress. HEENT: No sclera icterus. Extraocular movements grossly intact. Moist buccal mucosa. Head is atraumatic, normocephalic. ABDOMEN: Soft. Nondistended. Mild discomfort with palpation lower abdomen and NEUROLOGIC: Alert and oriented ASSESSMENT: 1. Colitis with normal colonoscopy 2. History of lymphoma PLAN: -Continue regular diet -Continue workup for fever and leukocytosis -Continue supportive care -Continue antibiotics Physician Screen Making Supervisor note has been reviewed by physician. Signing provider agrees with the documented findings, assessment, and plan of care. I have personally seen and examined the patient, reviewed the [employer]NAGER /PAs history, exam and MDM and agree with the assessment and plan as written. Based on total visit time, I have performed more than 50% of the visit. As above: Patient with high fever today. Patient says his pain in the abdomen is about the same today. Minimal appetite. White blood cell count remains elevated. If pain persists tomorrow we'll repeat CAT scan abdomen and pelvis with contrast. 2-D echo and fungal blood cultures ordered by primary service. Await those studies. Objective - Vital Signs Vital signs: Vital Signs Temp 99 F 06/21/22 13:25 Pulse 105 H 06/21/22 11:50 Resp 18 06/21/22 11:50 BP 154/77 06/21/22 11:50 Pulse Ox 93 L 06/21/22 11:50 FiO2 Intake & Output 06/20/22 06/21/22 06/21/22 18:59 06:59 18:59 Intake Total 200 Output Total 300 450 Balance 200 -300 -450 Weight 86.183 kg Intake: Intake, IV Titration 200 Amount Aztreonam 2 gm In Sodium 100 Chloride 0.9% 100 ml @ 33 .3 mls/hr IVPB Q8HR [facility] Rx#:[id number] metroNIDAZOLE-NS PMX 500 100 mg In Saline 1 100ml.bag @ 100 mls/hr IVPB Q8HR [facility] Rx#:[id number] Output: Urine 300 450 Other: Voiding Method Toilet Toilet # Voids 1 - Labs CBC & Chem 7: 06/21/22 09:23 06/21/22 09:23 Labs: Abnormal Lab Results - Last 24 Hours (Table) 06/21/22 06/21/22 Range/Units 09: 09:23 WBC 22.4 H (3.8-10.6) k/uL RBC 4.23 L (4.30-5.90) m/uL Hgb 12.7 L (13.0-17.5) gm/dL Neutrophils # 19.9 H (1.3-7.7) k/uL Sodium 135 L (137-145) mmol/L Calcium 7.7 L (8.4-10.2) mg/dL Microbiology - Last 24 Hours (Table) 06/17/22 12:33 Blood Culture - Preliminary Blood 06/17/22 12:49 Blood Culture - Preliminary Blood
--- NOTE | 2022-06-21 15:22 | P.PN ---
Subjective Progress Note Date: 06/21/22 This is a pleasant 76-year-old male who presented to the emergency department with feelings of weakness along with fevers that have been ongoing since Saturday. Patient did follow with his oncologist Dr. Ochoa in the outpatient setting on May 04 and had blood work showing a mildly elevated white count of 12 and had been feeling generalized weakness and further labs were drawn including iron studies. reports patient was notified about the low iron recommending an infusion and went and had an IV iron transfusion on Saturday. Patient continued to have worsening symptoms throughout the weekend and persisted with fevers and persistent worsening weakness and encourage the patient to come to the ER for further evaluation. Patient is endorsing some mild abdominal discomfort with possible constipation and denies nausea or vomiting or diarrhea. Patient denies any recent sick contacts but reports this is been ongoing for the last 10 days. Patient reports he followed with his primary care provider Dr. Meza and encouraged follow-up with oncology as well as his rat trapper. Patient did go to his rat trapper had some labs drawn along with a chest x-ray showing no acute process and had a vehicle monitor technician on him which was normal with no abnormalities noted. 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 Patient is currently not receiving any active treatment for his lymphoma. Patient did have a chest x-ray here showing no acute cardiopulmonary process in the ER and also underwent a brain CT showing no acute intracranial process with nonspecific white matter changes secondary to chronic small vessel ischemic disease. Patient did have a CT abdomen/pelvis as well showing mild fat stranding changes and inflammation involving the left anterior abdominal fat near the descending colon to correlate for early colitis with no other findings within the abdomen or pelvis to correlate for an infectious or inflammatory process, some inflammation changes around the left kidney that could be secondary to above and to correlate with urinalysis there is no lymphadenopathy identified. Urinalysis was negative and all virology testings including influenza RSV Covid and strep were negative. Patient is having fevers and an elevated white count that was found to be 23.6 on admission. patient was admitted for leukocytosis and possible colitis with infectious disease and oncology on consult. Patient was started on meropenem and cefepime and did receive some fluid boluses in the ER. Lactic acid on admission was 1. 06/15/2022 Patient is seen and evaluated in follow-up this morning and has been afebrile and is being continued on antibiotics with infectious disease following along with oncology. Patient reports to feeling better and denies any abdominal pain and is tolerating diet with no reports of nausea or vomiting noted. Discussed with infectious disease as patient still continues to have an elevated white count of 19 recommend monitoring overnight with continued IV antibiotics. Encouraged increased activity as tolerated and encouraged oral intake. 06/16/2022 Patient is seen and evaluated today currently sitting up at the side of the bed reporting he is not feeling well and continues with nausea and was given some Zofran although continues to report nausea and some abdominal pain. Patient is having fevers and noted to have flush face with generalized malaise. Patient being followed by infectious disease along with oncology and maintained on IV antibiotics and ID recommending repeat CT abdomen is patient's abdomen is tender on palpation. Patient denies chest pain or shortness of breath. Awaiting a.m. labs as WBC remains elevated. 06/17/2022 Patient is seen and evaluated in follow-up this morning continuing to have fevers reporting he is having some nausea with dry heaves denies any diarrhea. Patient does report some diffuse abdominal pain occasionally and repeat CT abdomen with concerns of multifocal colitis. Patient is maintained on cefepime and Flagyl with infectious disease following closely. White count currently pending for this morning and oncology following as well as patient does have a history of mantle cell lymphoma and follows with Dr. Ochoa outpatient. Patient denies chest pain or shortness of breath currently and reports not much of an appetite given his continued nausea. 06/18/2022 Patient is seen in follow-up today sleeping although arousable. Patient is fatigued and continues to have fevers and continued with abdominal pain. Patient generally feels weak and unwell with multiple medical consultations following including infectious disease, oncology, no general surgery. Plan is to initiate bowel prep with possible colonoscopy with Dr. Parr tomorrow. Recommend holding Eliquis for the procedure. Patient is continued on IV cefepime and Flagyl and will continue for now. Patient continues to have low-grade temperatures reports to not eating very well as patient does have some nausea and no reports of vomiting. Patient reports constipation although has been having some bowel movements during admission. Patient denies diarrhea or any blood noted in the stool. 06/19/2022 Patient is seen in follow-up this morning is reporting generalized itchy rash noted throughout and is being monitored closely with infectious disease maintained on antibiotics in the form of cefepime and Flagyl. General surgery following with plans of colonoscopy today and has completed bowel prep. Patient is denying chest pain or shortness of breath, continues to report some diffuse abdominal pain and is afebrile today. No reports of nausea or vomiting and able to tolerate the GoLYTELY prep and is currently nothing by mouth. 06/20/2022 Patient is seen and evaluated in follow-up today currently maintained on IV antibiotics with infectious disease and general surgery following. Patient underwent colonoscopy yesterday which showed a normal-appearing colon and multiple biopsies were obtained. Patient antibiotics have been changed to aztreonam along with Flagyl and patient is continued on as needed Benadryl along with calamine lotion showing some improvements in the questionable ALLERGIC reaction of medications. Cefepime was discontinued yesterday. Patient reports oral intake is poor and has not felt very hungry and continues with some diffuse abdominal pain in the left lower quadrant. Patient denies any pain or frequency with urination. White count is trending down and today is 17.36 with a hemoglobin of 12.0. Potassium is 3.3 and will replace per protocol and will follow-up with repeat labs. Patient is currently afebrile and has been for the last 2 days and will discuss further with infectious disease along with general surgery about treatment plan moving forward. Currently awaiting biopsy report and oncology is following as well. Encouraged increase activity as tolerated as patient has been mostly lying in the bed. Would recommend getting up and walking around more frequently. 06/21/2022 Patient is seen and evaluated in follow-up this morning currently febrile bundled up in many blankets sleeping although arousable. Patient reports he is not feeling well and continues to have diffuse abdominal pain with not much of an appetite. Patient reports he gets up to the bathroom otherwise has not been up out of the bed since yesterday. Encouraged increase activity as tolerated. Patient is now having fevers again T-max 103.1 today and is maintained on IV antibiotics in the form of Flagyl and is Azactam with infectious disease following and we'll transition to IV meropenem with repeat blood cultures, sputum culture, follow-up chest x-ray, labs including pro-calcitonin and CRP. Patient reports he has not been eating much and encouraged oral intake. General surgery following as there were concerns for colitis patient underwent colonoscopy which was normal appearing with multiple biopsies obtained biopsies not indicative of any neoplasms. Patient denies chest pain or shortness of breath and reports has no nausea or vomiting although a decreased appetite and not really hungry. Review of systems: Constitutional: reports of fatigue, reports of having fevers again today, or chills Cardiovascular: No reports of chest pain or palpitations Respiratory: No reports of shortness of breath or cough GI: no reports of nausea or vomiting, some diffuse abdominal left lower side pain and decreased oral intake : No reports of dysuria or retention Neurovascular: reports of generalized weakness, rash has improved All medications have been reviewed Active Medications Acetaminophen (Acetaminophen Tab 325 Mg Tab) 650 mg PO Q6HR PRN PRN Reason: Mild Pain or Fever > 100.5 Last Admin: 06/21/22 11:58 Dose: 650 mg Albuterol Sulfate (Albuterol Nebulized 2.5 Mg/3 Ml) 2.5 mg INHALATION RT-Q6H PRN PRN Reason: Shortness Of Breath Last Admin: 06/16/22 17:55 Dose: 2.5 mg Alprazolam (Alprazolam 0.25 Mg Tab) 0.25 mg PO BID PRN PRN Reason: Anxiety Last Admin: 06/20/22 22:18 Dose: 0.25 mg Apixaban (Apixaban 5 Mg Tab) 5 mg PO BID [facility]; Protocol Last Admin: 06/21/22 08:04 Dose: 5 mg Benzocaine/Menthol (Benzocaine/Menthol Lozeng 1 Each Lozenge) 1 each MUCOUS MEM Q4HR PRN PRN Reason: Sore Throat Last Admin: 06/16/22 20:33 Dose: 1 each Calamine (Calamine/Zinc Oxide Lotion 177 Ml Btl) 1 applic TOPICAL QID PRN; Protocol PRN Reason: Skin Irritation Last Admin: 06/19/22 17:22 Dose: 1 applic Diltiazem HCl (Diltiazem Cd 120 Mg Cap.Er.24h) 120 mg PO HS [facility] Last Admin: 06/20/22 22:03 Dose: 120 mg Diphenhydramine HCl (Diphenhydramine 50 Mg/Ml 1 Ml Vial) 25 mg IVP ONCE PRN PRN Reason: Allergy Symptoms Last Admin: 06/19/22 11:25 Dose: 25 mg Diphenhydramine HCl (Diphenhydramine 50 Mg/Ml 1 Ml Vial) 25 mg IVP TID PRN PRN Reason: Allergy Symptoms Last Admin: 06/20/22 03:44 Dose: 25 mg Flecainide Acetate (Flecainide 50 Mg Tab) 100 mg PO BID [facility] Last Admin: 06/21/22 08:04 Dose: 100 mg Meropenem 1 gm/ Sodium (Chloride) 100 mls @ 33.3 mls/hr IVPB Q8HR [facility]; Protocol Naloxone HCl (Naloxone 0.4 Mg/Ml 1 Ml Vial) 0.2 mg IV Q2M PRN PRN Reason: Opioid Reversal Ondansetron HCl (Ondansetron 4 Mg/2 Ml Vial) 4 mg IVP Q6HR PRN PRN Reason: Nausea And Vomiting Last Admin: 06/20/22 19:43 Dose: 4 mg Pantoprazole Sodium (Pantoprazole 40 Mg/10 Ml Vial) 40 mg IVP DAILY [facility] Last Admin: 06/21/22 08:04 Dose: 40 mg PHYSICAL EXAMINATION: GENERAL: The patient is awake, alert and oriented x3, Well developed, well nourished. HEENT: Pupils are round and equally reacting to light. EOMI. no scleral icterus. No conjunctival pallor. Normocephalic, atraumatic. No pharyngeal erythema. No thyromegaly. CARDIOVASCULAR: S1 and S2 muffled PULMONARY: diminished breath sounds bilaterally with no wheezing or rhonchi noted. ABDOMEN: soft. tender on exam of the left lower quadrant. non-distended, normoactive bowel sounds. No palpable organomegaly. MUSCULOSKELETAL: No joint swelling or deformity. EXTREMITIES: No cyanosis, clubbing, mild pedal edema mostly dependent. NEUROLOGICAL: Gross neurological examination did not reveal any focal deficits. SKIN: Generalized hive-like rash noted of bilateral lower extremities including abdomen back and upper extremities with significant improvement from yesterday and no longer raised Assessment: Fever with leukocytosis, possibly secondary to acute pharyngitis, or possibility of early signs of colitis or diverticulitis as noted on CT Features of sepsis, present on admission, including fevers and leukocytosis, possible viral etiology with unknown etiology Generalized rash, likely ALLERGIC reaction to possibly cefepime, improving Sore throat, possible acute pharyngitis Diffuse abdominal pain and CT abdomen showing concerns for multifocal colitis Recent iron infusion in the outpatient setting last Saturday History of mantle cell lymphoma History of atrial fibrillation, currently rate controlled History of basal cell carcinoma in 2013, in remission History of aortic aneurysm History bronchitis Lifelong nonsmoker GI prophylaxis DVT prophylaxis Full code Plan: Recommend to continue with current medications and management with infectious disease and oncology following. Patient is having new fevers again with diffuse abdominal pain and IV antibiotics being transition to Merrem and will discontinue Flagyl and Azactam. Repeat cultures obtained including sputum and urinalysis and will follow-up with chest x-ray and labs in the a.m. Pro-calc itonin and inflammatory markers ordered and pending WBC remains elevated and have discussed with infectious disease and transitioning antibiotics and will follow-up with new labs, inflammatory markers , repeat blood cultures, sputum culture General surgery Dr. Horne following and patient underwent colonoscopy which appeared normal and multiple biopsies were obtained and within normal limits Patient is tolerating oral intake although extremely fair and not much of an appetite. Encouraged nutritional supplements and food from home if possible Oncology following as patient follows with Dr. Gan for history of for lymphoma, reports most recent PET scan was clear on 05/25/2022 and is not currently receiving treatment Replace electrolytes per protocol and will follow-up with repeat labs in the a.m. Encouraged increased activity as tolerated as patient has been mostly lying in the bed during hospitalization. Prognosis is guarded The impression and plan of care has been dictated by Kika Jorgensen, nurse practitioner as directed. Dr. Miguel MD I have performed a history and examination and MDM of this patient, discussed the same with the dictator, and agree with the dictator's assessment and plan as written ,documented as a scribe. Based on total visit time, I have performed more than 50% of the visit. Any additional findings or plans will be noted. Objective - Vital Signs Vital signs: Vital Signs Temp 98.1 F 06/21/22 07:15 Pulse 93 06/21/22 07:15 Resp 18 06/21/22 07:15 BP 111/74 06/21/22 07:15 Pulse Ox 94 L 06/21/22 07:40 FiO2 Intake & Output 06/20/22 06/21/22 06/21/22 18:59 06:59 18:59 Intake Total 200 Output Total 300 Balance 200 -300 Weight 86.183 kg Intake: Intake, IV Titration 200 Amount Aztreonam 2 gm In Sodium 100 Chloride 0.9% 100 ml @ 33 .3 mls/hr IVPB Q8HR [facility] Rx#:[id number] metroNIDAZOLE-NS PMX 500 100 mg In Saline 1 100ml.bag @ 100 mls/hr IVPB Q8HR [facility] Rx#:[id number] Output: Urine 300 Other: Voiding Method Toilet Toilet - Labs CBC & Chem 7: 06/21/22 09:23 06/21/22 09:23 Labs: Abnormal Lab Results - Last 24 Hours (Table) 06/20/22 06/20/22 Range/Units 07:25 07:25 WBC 17.36 H (4.50-10.00) X 10*3/uL RBC 4.01 L (4.40-5.60) X 10*6/uL Hgb 12.0 L (13.0-17.0) g/dL Hct 38.5 L (39.6-50.0) % MCHC 31.2 L (32.0-37.0) g/dL Immature Gran # 0.11 H (0.00-0.04) X 10*3/uL Neutrophils # 14.50 H (1.80-7.70) X 10*3/uL Eosinophils # 0.63 H (0.04-0.35) X 10*3/uL Potassium 3.3 L (3.5-5.5) mmol/L Calcium 7.9 L (8.7-10.3) mg/dL Microbiology - Last 24 Hours (Table) 06/17/22 12:33 Blood Culture - Preliminary Blood 06/17/22 12:49 Blood Culture - Preliminary Blood
[2022-06-21 16:35] LABS: Appearance,Urine Clear (Clear); Bilirubin,Urine Negative (Negative); Blood,Urine Trace (Negative); Color,Urine Light Yellow; Glucose,Urine (UA) Negative (Negative); Leukocyte Esterase,Urine Negative (Negative); Mucus,Urine Occasional /hpf; Nitrite,Urine Negative (Negative); Protein,Urine Negative (Negative); RBC,Urine 5 /hpf (0-5); Specific Gravity,Urine 1.006 (1.001-1.035); Urobilinogen,Urine <2.0 mg/dL (<2.0); WBC,Urine <1 /hpf (0-5)
[2022-06-21 16:38] LABS: Ketones,Urine 2+ (Negative)
[2022-06-21] MEDS: MEROPENEM 1 GM in SODIUM CHLORIDE 0.9% 100 ML IVPB SCH (17:16)
[2022-06-21] MEDS: DILTIAZEM CD 120 MG CAP.ER.24H PO SCH (20:47)
[2022-06-21] MEDS: ONDANSETRON 4 MG/2 ML VIAL IVP PRN (22:28)
[2022-06-22] MEDS: MEROPENEM 1 GM in SODIUM CHLORIDE 0.9% 100 ML IVPB SCH ×4 (00:47→23:53)
[2022-06-22] MEDS: PANTOPRAZOLE 40 MG/10 ML VIAL IVP SCH (08:26)
[2022-06-22] MEDS: APIXABAN 5 MG TAB PO SCH ×2 (08:27→20:37)
[2022-06-22] MEDS: FLECAINIDE 50 MG TAB PO SCH ×2 (08:28→20:36)
--- NOTE | 2022-06-22 09:35 | CA ---
Transthoracic Echo Report Name: Sreedhar Jackson Age: 76 Gender: M : 1945 Exam Date: 06/20/2022 16:05 Exam Location: [place] [facility] Ht (in): 74 Wt (lb): 190 Ordering Physician: Kika Jorgensen Attending/Referring Phys: Swatch Folder Jaswinder Mann RDCS Procedure CPT: Indications: fevers, hx of afib Cardiac Hx: Technical Quality: Fair Contrast 1: Total Dose (mL): Contrast 2: Total Dose (mL): MEASUREMENTS (Male / Female) Normal Values 2D ECHO LV Diastolic Diameter PLAX 4.9 cm 4.2 - 5.9 / 3.9 - 5.3 cm LV Systolic Diameter PLAX 4.9 cm LV Fractional Shortening PLAX 0.6 % IVS Diastolic Thickness 1.2 cm 0.6 - 1.0 / 0.6 - 0.9 cm IVS Systolic Thickness 1.5 cm LVPW Diastolic Thickness 1.2 cm 0.6 - 1.0 / 0.6 - 0.9 cm LVPW Systolic Thickness 1.7 cm LV Relative Wall Thickness 0.5 RV Internal Dim ED PLAX 4.2 cm LVOT Diameter 2.2 cm LA Systolic Diameter LX 3.4 cm 3.0 - 4.0 / 2.7 - 3.8 cm LV Diastolic Volume MOD BP 103.3 cm??? 67 - 155 / 56 - 104 cm??? LV Systolic Volume MOD BP 57.0 cm??? 22 - 58 / 19 - 49 cm??? LV Ejection Fraction MOD BP 44.8 % >= 55 % LV Stroke Volume MOD BP 46.3 cm??? LV Diastolic Volume MOD 4C 151.4 cm??? LV Systolic Volume MOD 4C 71.5 cm??? LV Ejection Fraction MOD 4C 52.8 % LV Stroke Volume MOD 4C 79.9 cm??? LV Diastolic Length 4C 8.6 cm LV Systolic Length 4C 6.5 cm LV Diastolic Volume MOD 2C 65.1 cm??? LV Systolic Volume MOD 2C 41.6 cm??? LV Ejection Fraction MOD 2C 36.1 % LV Stroke Volume MOD 2C 23.5 cm??? LV Diastolic Length 2C 7.9 cm LV Systolic Length 2C 7.1 cm Ascending Aorta Diameter 3.6 cm M-MODE Aortic Root Diameter MM 4.0 cm LA Systolic Diameter MM 4.2 cm LA Ao Ratio MM 1.1 MV E Point Septal Separation 1.3 cm AV Cusp Separation MM 1.6 cm DOPPLER AV Peak Velocity 112.5 cm/s AV Peak Gradient 5.1 mmHg AI Peak Velocity 342.1 cm/s AI Peak Gradient 46.8 mmHg AI Deceleration Leslie 110.4 cm/s??? AI Pressure Half Time 898.8 ms MV Deceleration Leslie 472.7 cm/s??? MR Peak Velocity 232.8 cm/s MR Peak Gradient 21.7 mmHg Mitral E Point Velocity 74.2 cm/s Mitral A Point Velocity 86.3 cm/s Mitral E to A Ratio 0.9 MV Deceleration Time 156.9 ms MV E' Velocity 5.6 cm/s Mitral E to MV E' Ratio 13.1 TR Peak Velocity 109.6 cm/s TR Peak Gradient 4.8 mmHg Right Ventricular Systolic Press 12.8 mmHg PV Peak Velocity 96.5 cm/s PV Peak Gradient 3.7 mmHg FINDINGS Left Ventricle Left ventricular ejection fraction is estimated at 50-55 %. Mild concentric left ventricular hypertrophy. Grade 1 diastolic dysfunction. Normal basal systolic function. Right Ventricle Normal right ventricular size and function. Right Atrium Normal right atrial size. Left Atrium Mild left atrial dilatation. Mitral Valve Mitral valve thickened. [id number] mitral regurgitation. Aortic Valve Trileaflet aortic valve. Diffuse thickening (sclerosis) of the aortic valve cusps without reduced excursion. [id number] aortic regurgitation. Tricuspid Valve Mild tricuspid regurgitation. Pulmonic Valve Structurally normal pulmonic valve. Pericardium Normal pericardium. No pericardial effusion. Aorta Moderately dilated aortic annulus. Moderate aortic dilatation at the level of the sinuses of valsalva (root). Moderately dilated proximal ascending aorta (tube). CONCLUSIONS Normal LV systolic function [id number] aortic and mitral regurgitation Previewed by: Dr. Velasquez Stern MD (Electronically Signed) Final Date: 22 June 2022 09:34
--- NOTE | 2022-06-22 10:14 | XR ---
EXAMINATION TYPE: XR chest 1V portable DATE OF EXAM: 06/22/2022 COMPARISON: 06/16/2022 HISTORY: Fever TECHNIQUE: Single frontal view of the chest is obtained. FINDINGS: There is no focal air space opacity, pleural effusion, or pneumothorax seen. The cardiac silhouette size is within normal limits. The osseous structures are intact. Right-sided AC joint ar thropathy. IMPRESSION: No acute process.
[2022-06-22 12:08] LABS: Magnesium 1.9 mg/dL (1.5-2.4)
[2022-06-22 12:11] LABS: African American GFR (CKD) 97.2 (60.0-200.0); Albumin 2.8 g/dL (3.8-4.9); Albumin/Globulin Ratio 1.22 (1.60-3.17); BUN/Creat Ratio 13.78 Ratio (12.00-20.00); Blood Urea Nitrogen 12.4 mg/dL (9.0-27.0); Calcium 8.3 mg/dL (8.7-10.3); Globulin 2.3 g/dL (1.6-3.3); Non-African American GFR(CKD) 83.8 (60.0-200.0); Potassium 3.8 mmol/L (3.5-5.5); Total Bilirubin 0.3 mg/dL (0.30-1.20); Total Protein 5.1 g/dL (6.2-8.2)
[2022-06-22 12:15] LABS: Basophils # (A) 0.08 X 10*3/uL (0.00-0.10); Basophils % (A) 0.2 %; Eosinophils % (A) 0.9 %; HCT 38.2 % (39.6-50.0); Immature Grans, Automated 0.6 %; Lymphocytes # (A) 1.48 X 10*3/uL (0.90-5.00); Lymphocytes % (A) 4.6 %; MCH 30.2 pg (27.0-32.0); MCHC 31.4 g/dL (32.0-37.0); MCV 96.2 fL (80.0-97.0); Mean Platelet Volume 10.5 fL (9.5-12.2); Monocytes # (A) 0.58 X 10*3/uL (0.20-1.00); Monocytes % (A) 1.8 %; NRBC Per 100 WBC 0 /100 WBCS (0.0-0.0); Neutrophils # (A) 29.47 X 10*3/uL (1.80-7.70); Neutrophils % (A) 91.9 %; Platelet Count 388 X 10*3/uL (140-440); RBC 3.97 X 10*6/uL (4.40-5.60); RDW 14.3 % (11.5-14.5); WBC 32.11 X 10*3/uL (4.50-10.00)
[2022-06-22 12:16] LABS: RBC Morphology NORMAL
--- NOTE | 2022-06-22 13:40 | P.PN ---
Subjective Progress Note Date: 06/22/22 CHIEF COMPLAINT: Colitis HISTORY OF PRESENT ILLNESS: Patient is status post colonoscopy with random biops ies. Colonoscopy was normal appearing. Biopsy results benign colonic mucosa. Patient still complains of abdominal discomfort. He is having flatus. Reports decreased appetite. No BMs. Patient had low-grade temp of 100.1 last night. WBC is up from 22 to 32. Antibiotics adjusted yesterday per medicine service. They've also ordered blood cultures and echo with normal LV function. CXR no acute process. Patient seen and examined with Dr. jones who is covering for Dr. Horne PHYSICAL EXAM: VITAL SIGNS: Reviewed. GENERAL: Well-developed in no acute distress. HEENT: No sclera icterus. Extraocular movements grossly intact. Moist buccal mucosa. Head is atraumatic, normocephalic. ABDOMEN: Soft. Nondistended. Diffuse abdominal pain. With tenderness more in the left lower abdomen NEUROLOGIC: Alert and oriented ASSESSMENT: 1. Colitis with normal colonoscopy 2. History of lymphoma PLAN: -Computed tomography scan abdomen and pelvis with oral and IV contrast ordered due to patient's continuous abdominal pain, elevated white count and low-grade temp -Recommend transfer to [facility]. Patient and patient's would like to proceed with transfer. Patient has had workup for his cancer done at [facility] -Continue regular diet -Continue workup for fever and leukocytosis -Continue supportive care -Continue antibiotics Physician Construction Management Assistant note has been reviewed by physician. Signing provider agrees with the documented findings, assessment, and plan of care. Objective - Vital Signs Vital signs: Vital Signs Temp 98.8 F 06/22/22 07:25 Pulse 91 06/22/22 07:25 Resp 18 06/22/22 07:25 BP 119/69 06/22/22 07:25 Pulse Ox 95 06/22/22 07:25 FiO2 Intake & Output 06/21/22 06/22/22 06/22/22 18:59 06:59 18:59 Intake Total 300 590 Output Total 450 Balance -150 590 Intake: Intake, IV Titration 300 Amount Aztreonam 2 gm In Sodium 100 Chloride 0.9% 100 ml @ 33 .3 mls/hr IVPB Q8HR [facility] Rx#:[id number] Meropenem 1 gm In Sodium 100 Chloride 0.9% 100 ml @ 33 .3 mls/hr IVPB Q8HR [facility] Rx#:[id number] metroNIDAZOLE-NS PMX 500 100 mg In Saline 1 100ml.bag @ 100 mls/hr IVPB Q8HR [facility] Rx#:[id number] Oral 590 Output: Urine 450 Other: Voiding Method Toilet Toilet # Voids 1 3 - Labs CBC & Chem 7: 06/22/22 06:46 06/22/22 06:46 Labs: Abnormal Lab Results - Last 24 Hours (Table) 06/21/22 06/21/22 06/21/22 Range/Units 12:13 12:13 15:40 WBC (4.50-10.00) X 10*3/uL RBC (4.40-5.60) X 10*6/uL Hgb (13.0-17.0) g/dL Hct (39.6-50.0) % MCHC (32.0-37.0) g/dL Immature Gran # (0.00-0.04) X 10*3/uL Neutrophils # (1.80-7.70) X 10*3/uL Calcium (8.7-10.3) mg/dL AST (14-35) U/L C-Reactive Protein 15.5 H (<1.0) mg/dL Total Protein (6.2-8.2) g/dL Albumin (3.8-4.9) g/dL Albumin/Globulin Ratio (1.60-3.17) g/dL Procalcitonin 0.31 H (0.02-0.09) ng/mL Urine Ketones 2+ H (Negative) Urine Blood Trace H (Negative) Urine Mucus Occasional H (None) /hpf 06/22/22 06/22/22 Range/Units 06:46 06:46 WBC 32.11 H (4.50-10.00) X 10*3/uL RBC 3.97 L (4.40-5.60) X 10*6/uL Hgb 12.0 L (13.0-17.0) g/dL Hct 38.2 L (39.6-50.0) % MCHC 31.4 L (32.0-37.0) g/dL Immature Gran # 0.20 H (0.00-0.04) X 10*3/uL Neutrophils # 29.47 H (1.80-7.70) X 10*3/uL Calcium 8.3 L (8.7-10.3) mg/dL AST 12 L (14-35) U/L C-Reactive Protein (<1.0) mg/dL Total Protein 5.1 L (6.2-8.2) g/dL Albumin 2.8 L (3.8-4.9) g/dL Albumin/Globulin Ratio 1.22 L (1.60-3.17) g/dL Procalcitonin (0.02-0.09) ng/mL Urine Ketones (Negative) Urine Blood (Negative) Urine Mucus (None) /hpf Microbiology - Last 24 Hours (Table) 06/17/22 12:33 Blood Culture - Preliminary Blood 06/17/22 12:49 Blood Culture - Preliminary Blood 06/21/22 15:40 Gram Stain - Preliminary Sputum Sputum Culture - Preliminary 06/21/22 14:31 Blood Fungal Culture - Preliminary Blood
[2022-06-22] MEDS: IOPAMIDOL CONTRAST (ORAL USE) VIAL PO PRN ×2 (13:45→14:51)
[2022-06-22] MEDS: ACETAMINOPHEN TAB 325 MG TAB PO PRN ×2 (14:50→20:37)
--- NOTE | 2022-06-22 16:04 | P.PN ---
Subjective Progress Note Date: 06/21/22 Principal diagnosis: Fever/colitis Patient is a 76-year-old male with a past medical history significant for lymphoma currently in remission and recently received an iron transfusion presenting to the hospital with symptoms of some mental status changes the patient also complaining of sore throat and lower abdominal discomfort, patient did have a CT abdominal pelvis suspicious for colitis involving the sigmoid region. Patient is status post colonoscopy on 06/19/2022 apparently normal- appearing colon, random biopsies were done On today's evaluation that is 06/21/2022, the patient did spike a fever of 103F this morning patient mentioned not feeling that good has been complaining of some nausea but no vomiting no chest pain or shortness of the greater cough no diarrhea has been reported, Objective - Vital Signs Vital signs: Vital Signs Temp 103.1 F H 06/21/22 11:50 Pulse 105 H 06/21/22 11:50 Resp 18 06/21/22 11:50 BP 154/77 06/21/22 11:50 Pulse Ox 93 L 06/21/22 11:50 FiO2 Intake & Output 06/20/22 06/21/22 06/21/22 18:59 06:59 18:59 Intake Total 200 Output Total 300 450 Balance 200 -300 -450 Weight 86.183 kg Intake: Intake, IV Titration 200 Amount Aztreonam 2 gm In Sodium 100 Chloride 0.9% 100 ml @ 33 .3 mls/hr IVPB Q8HR [facility] Rx#:[id number] metroNIDAZOLE-NS PMX 500 100 mg In Saline 1 100ml.bag @ 100 mls/hr IVPB Q8HR [facility] Rx#:[id number] Output: Urine 300 450 Other: Voiding Method Toilet Toilet # Voids 1 - Exam GENERAL DESCRIPTION: An elderly male lying in bed in no distress RESPIRATORY SYSTEM: Unlabored breathing , decreased breath sounds at bases HEART: S1 S2 regular rate and rhythm , ABDOMEN: Soft , mild distention but no tenderness EXTREMITIES: No edema feet - Labs CBC & Chem 7: 06/22/22 06:46 06/22/22 06:46 Labs: Abnormal Lab Results - Last 24 Hours (Table) 06/21/22 06/21/22 Range/Units 09:23 09:23 WBC 22.4 H (3.8-10.6) k/uL RBC 4.23 L (4.30-5.90) m/uL Hgb 12.7 L (13.0-17.5) gm/dL Neutrophils # 19.9 H (1.3-7.7) k/uL Sodium 135 L (137-145) mmol/L Calcium 7.7 L (8.4-10.2) mg/dL Microbiology - Last 24 Hours (Table) 06/17/22 12:33 Blood Culture - Preliminary Blood 06/17/22 12:49 Blood Culture - Preliminary Blood Assessment and Plan (1) Colitis Current Visit: Yes Status: Acute Priority: High Code(s): K52.9 - NONINFECTIVE GASTROENTERITIS AND COLITIS, UNSPECIFIED SNOMED Code(s): 97171848 (2) Febrile illness Current Visit: Yes Status: Acute Code(s): R50.9 - FEVER, UNSPECIFIED SNOMED Code(s): 150013978 Plan: 1patient presented to hospital with fever did have elevated white count with abdominal pain and constipation meeting criteria for sepsis source is likely colitis/diverticulitis and need to cover for enteric gram-negative both anaerobes and anaerobes, abnormality to the left kidney described on the CT however the patient did have a negative UA and no urinary symptoms 2-patient with a penicillin allergy that would limit the number of antibiotics safe to use 3-patient did have a new fever and white count is still elevated, with repeat his CT of abdominal pelvis with contrast did shows evidence of multifocal colitis with a question of possible ischemic, however the patient did have colo noscopy completed by surgery and apparently normal-appearing colon However biopsies has been done, reports currently pending 4-patient has developed a rash could be related to cefepime which has been discontinued , 5-we will repeat blood cultures CRP and a pro-calcitonin in view of the new fever discontinue Azactam and Flagyl start the patient on meropenem plan of care was discussed in detail with the at the bedside as well as with the HYDROMETEOROLOGICAL TECHNICIAN for admitting team Time with Patient: Less than 30
--- NOTE | 2022-06-22 16:06 | P.PN ---
Subjective Progress Note Date: 06/22/22 Principal diagnosis: Fever/colitis Patient is a 76-year-old male with a past medical history significant for lymphoma currently in remission and recently received an iron transfusion presenting to the hospital with symptoms of some mental status changes the patient also complaining of sore throat and lower abdominal discomfort, patient did have a CT abdominal pelvis suspicious for colitis involving the sigmoid region. Patient is status post colonoscopy on 06/19/2022 apparently normal- appearing colon, random biopsies were done On today's evaluation that is 06/22/2022, the patient is afebrile this morning, patient is feeling better compared to yesterday however still complaining of some nausea but no vomiting and no significant abdominal pain or discomfort no chest pain or shortness of the breath, no cough no diarrhea has been reported, Objective - Vital Signs Vital signs: Vital Signs Temp 98.4 F 06/22/22 12:17 Pulse 100 06/22/22 12:17 Resp 18 06/22/22 12:17 BP 110/70 06/22/22 12:17 Pulse Ox 96 06/22/22 12:17 FiO2 Intake & Output 06/21/22 06/22/22 06/22/22 18:59 06:59 18:59 Intake Total 300 590 Output Total 450 Balance -150 590 Intake: Intake, IV Titration 300 Amount Aztreonam 2 gm In Sodium 100 Chloride 0.9% 100 ml @ 33 .3 mls/hr IVPB Q8HR [facility] Rx#:[id number] Meropenem 1 gm In Sodium 100 Chloride 0.9% 100 ml @ 33 .3 mls/hr IVPB Q8HR [facility] Rx#:[id number] metroNIDAZOLE-NS PMX 500 100 mg In Saline 1 100ml.bag @ 100 mls/hr IVPB Q8HR [facility] Rx#:[id number] Oral 590 Output: Urine 450 Other: Voiding Method Toilet Toilet # Voids 1 3 - Exam GENERAL DESCRIPTION: An elderly male lying in bed in no distress RESPIRATORY SYSTEM: Unlabored breathing , decreased breath sounds at bases HEART: S1 S2 regular rate and rhythm , ABDOMEN: Soft , mild distention but no tenderness EXTREMITIES: No edema feet - Labs CBC & Chem 7: 06/22/22 06:46 06/22/22 06:46 Labs: Abnormal Lab Results - Last 24 Hours (Table) 0406/21/22 06/21/22 Range/Units 12:13 12:13 15:40 WBC (4.50-10.00) X 10*3/uL RBC (4.40-5.60) X 10*6/uL Hgb (13.0-17.0) g/dL Hct (39.6-50.0) % MCHC (32.0-37.0) g/dL Immature Gran # (0.00-0.04) X 10*3/uL Neutrophils # (1.80-7.70) X 10*3/uL Calcium (8.7-10.3) mg/dL AST (14-35) U/L C-Reactive Protein 15.5 H (<1.0) mg/dL Total Protein (6.2-8.2) g/dL Albumin (3.8-4.9) g/dL Albumin/Globulin Ratio (1.60-3.17) g/dL Procalcitonin 0.31 H (0.02-0.09) ng/mL Urine Ketones 2+ H (Negative) Urine Blood Trace H (Negative) Urine Mucus Occasional H (None) /hpf 06/22/22 06/22/22 Range/Units 06:46 06:46 WBC 32.11 H (4.50-10.00) X 10*3/uL RBC 3.97 L (4.40-5.60) X 10*6/uL Hgb 12.0 L (13.0-17.0) g/dL Hct 38.2 L (39.6-50.0) % MCHC 31.4 L (32.0-37.0) g/dL Immature Gran # 0.20 H (0.00-0.04) X 10*3/uL Neutrophils # 29.47 H (1.80-7.70) X 10*3/uL Calcium 8.3 L (8.7-10.3) mg/dL AST 12 L (14-35) U/L C-Reactive Protein (<1.0) mg/dL Total Protein 5.1 L (6.2-8.2) g/dL Albumin 2.8 L (3.8-4.9) g/dL Albumin/Globulin Ratio 1.22 L (1.60-3.17) g/dL Procalcitonin (0.02-0.09) ng/mL Urine Ketones (Negative) Urine Blood (Negative) Urine Mucus (None) /hpf Microbiology - Last 24 Hours (Table) 06/17/22 12:33 Blood Culture - Preliminary Blood 06/17/22 12:49 Blood Culture - Preliminary Blood 06/21/22 15:40 Gram Stain - Preliminary Sputum Sputum Culture - Preliminary 06/21/22 14:31 Blood Fungal Culture - Preliminary Blood Assessment and Plan (1) Colitis Current Visit: Yes Status: Acute Priority: High Code(s): K52.9 - NONINFECTIVE GASTROENTERITIS AND COLITIS, UNSPECIFIED SNOMED Code(s): 08111300 (2) Febrile illness Current Visit: Yes Status: Acute Code(s): R50.9 - FEVER, UNSPECIFIED SNOMED Code(s): 016345210 Plan: 1patient presented to hospital with fever did have elevated white count with a bdominal pain and constipation meeting criteria for sepsis source is likely colitis/diverticulitis and need to cover for enteric gram-negative both anaerobes and anaerobes, abnormality to the left kidney described on the CT however the patient did have a negative UA and no urinary symptoms 2-patient with a penicillin allergy that would limit the number of antibiotics safe to use 3-patient did have a new fever and white count is still elevated, with repeat his CT of abdominal pelvis with contrast did shows evidence of multifocal colitis with a question of possible ischemic, however the patient did have colonoscopy completed by surgery and apparently normal-appearing colon However biopsies has been done, reports currently pending 4-patient has developed a rash could be related to cefepime which has been discontinued , 5-patient did have elevated CRP and a pro-calcitonin, repeat blood culture so far pending patient fever seemed to have responded to meropenem and will be continued while waiting for the cultures to finalize Time with Patient: Less than 30
--- NOTE | 2022-06-22 16:21 | CT ---
EXAMINATION TYPE: CT abdomen pelvis w con DATE OF EXAM: 06/22/2022 COMPARISON: 06/16/2022 HISTORY: 76-year-old male elevated WBC. Fever TECHNIQUE: Contiguous axial scanning of the abdomen and pelvis following administration of 100 ml Iso alfonso 300 IV contrast. Delayed images through the kidneys and coronal/sagittal reconstructions perform ed. CT DLP: 1445.8 mGycm Automated exposure control for dose reduction was used. FINDINGS: Heart normal size without pericardial effusion. Minimal emphysematous change in the lower lungs. No p leural effusion. A 1.8 cm benign cyst left liver lobe. Otherwise, no focal liver lesion or biliary ductal dilatation. Portal venous system is patent. Cholecystectomy clips. Adrenal glands, spleen, and atrophic pancreas show no gross abnormal body. Mild bilateral perinephric stranding, symmetric from side to side. This may relate to mild fluid over load state given some dependent edema in the subcutaneous adipose layer. Scattered bilateral renal cysts, greater number on the left measuring up to 5.2 cm. Additional left-s ided parapelvic cysts measure up to 2.8 cm. Moderate atherosclerotic calcifications infrarenal abdominal aorta and iliac arteries. Ectatic right and left common iliac arteries measuring up to 1.7 cm. There appears to be mild wall thickening of the distal ileum for a span of approximately 12 cm. Axial image 48. No dilated small bowel or free air. Trace ascites tracks down the left side of the abdomen along the descending colon. No focal inflammat ion seen along this region of the colon. Oral contrast progressed to the proximal transverse colon. No mesenteric or retroperitoneal lymphadenopathy. Bladder partially distended. Prostate gland mildly enlarged at 4.5 cm wide. Pelvic lymph nodes. No ab normal fluid collection the pelvis or pelvic lymphadenopathy. Bones: Moderate to advanced spondylotic change throughout the lumbar spine with degenerative grade 1 retrolisthesis L2-L5 levels. IMPRESSION: 1. CORRELATE FOR FLUID OVERLOAD STATE/THIRD SPACING GIVEN MILD ANASARCA CHANGE, MILD BILATERAL PERIN EPHRIC EDEMA, AND TRACE FREE FLUID ON THE LEFT SIDE OF THE ABDOMEN. 2. APPEARANCE OF MILD WALL THICKENING ALONG THE DISTAL ILEUM FOR A SPAN OF APPROXIMATELY 12 CM. NENA ELATE FOR NONSPECIFIC INFECTIOUS OR INFLAMMATORY ILEITIS. NO ABSCESS OR FREE AIR.
[2022-06-22] MEDS: DILTIAZEM CD 120 MG CAP.ER.24H PO SCH (20:36)
[2022-06-22] MEDS: ONDANSETRON 4 MG/2 ML VIAL IVP PRN (20:37)
--- NOTE | 2022-06-23 03:13 | P.PN ---
Subjective Progress Note Date: 06/22/22 This is a pleasant 76-year-old male who presented to the emergency department with feelings of weakness along with fevers that have been ongoing since Saturday. Patient did follow with his oncologist Dr. Ochoa in the outpatient setting on May 04 and had blood work showing a mildly elevated white count of 12 and had been feeling generalized weakness and further labs were drawn including iron studies. reports patient was notified about the low iron recommending an infusion and went and had an IV iron transfusion on Saturday. Patient continued to have worsening symptoms throughout the weekend and persisted with fevers and persistent worsening weakness and encourage the patient to come to the ER for further evaluation. Patient is endorsing some mild abdominal discomfort with possible constipation and denies nausea or vomiting or diarrhea. Patient denies any recent sick contacts but reports this is been ongoing for the last 10 days. Patient reports he followed with his primary care provider Dr. 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 Patient did go to his video editor had some labs drawn along with a chest x-ray showing no acute process and had a color television console monitor on him which was normal with no abnormalities noted. 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 Patient is currently not receiving any active treatment for his lymphoma. Patient did have a chest x-ray here showing no acute cardiopulmonary process in the ER and also underwent a brain CT showing no acute intracranial process with nonspecific white matter changes secondary to chronic small vessel ischemic disease. Patient did have a CT abdomen/pelvis as well showing mild fat stranding changes and inflammation involving the left anterior abdominal fat near the descending colon to correlate for early colitis with no other findings within the abdomen or pelvis to correlate for an infectious or inflammatory process, some inflammation changes around the left kidney that could be secondary to above and to correlate with urinalysis there is no lymphadenopathy identified. Urinalysis was negative and all virology testings including influenza RSV Covid and strep were negative. Patient is having fevers and an elevated white count that was found to be 23.6 on admission. patient was admitted for leukocytosis and possible colitis with infectious disease and oncology on consult. Patient was started on meropenem and cefepime and did receive some fluid boluses in the ER. Lactic acid on admission was 1. 06/15/2022 Patient is seen and evaluated in follow-up this morning and has been afebrile and is being continued on antibiotics with infectious disease following along with oncology. Patient reports to feeling better and denies any abdominal pain and is tolerating diet with no reports of nausea or vomiting noted. Discussed with infectious disease as patient still continues to have an elevated white count of 19 recommend monitoring overnight with continued IV antibiotics. Encouraged increased activity as tolerated and encouraged oral intake. 06/16/2022 Patient is seen and evaluated today currently sitting up at the side of the bed reporting he is not feeling well and continues with nausea and was given some Zofran although continues to report nausea and some abdominal pain. Patient is having fevers and noted to have flush face with generalized malaise. Patient being followed by infectious disease along with oncology and maintained on IV antibiotics and ID recommending repeat CT abdomen is patient's abdomen is tender on palpation. Patient denies chest pain or shortness of breath. Awaiting a.m. labs as WBC remains elevated. 06/17/2022 Patient is seen and evaluated in follow-up this morning continuing to have fevers reporting he is having some nausea with dry heaves denies any diarrhea. Patient does report some diffuse abdominal pain occasionally and repeat CT abdomen with concerns of multifocal colitis. Patient is maintained on cefepime and Flagyl with infectious disease following closely. White count currently pending for this morning and oncology following as well as patient does have a history of mantle cell lymphoma and follows with Dr. Ochoa outpatient. Patient denies chest pain or shortness of breath currently and reports not much of an appetite given his continued nausea. 06/18/2022 Patient is seen in follow-up today sleeping although arousable. Patient is fatigued and continues to have fevers and continued with abdominal pain. Patient generally feels weak and unwell with multiple medical consultations following including infectious disease, oncology, no general surgery. Plan is to initiate bowel prep with possible colonoscopy with Dr. Parr tomorrow. Recommend holding Eliquis for the procedure. Patient is continued on IV cefepime and Flagyl and will continue for now. Patient continues to have low-grade temperatures reports to not eating very well as patient does have some nausea and no reports of vomiting. Patient reports constipation although has been having some bowel movements during admission. Patient denies diarrhea or any blood noted in the stool. 06/19/2022 Patient is seen in follow-up this morning is reporting generalized itchy rash noted throughout and is being monitored closely with infectious disease maintained on antibiotics in the form of cefepime and Flagyl. General surgery following with plans of colonoscopy today and has completed bowel prep. Patient is denying chest pain or shortness of breath, continues to report some diffuse abdominal pain and is afebrile today. No reports of nausea or vomiting and able to tolerate the GoLYTELY prep and is currently nothing by mouth. 06/20/2022 Patient is seen and evaluated in follow-up today currently maintained on IV antibiotics with infectious disease and general surgery following. Patient underwent colonoscopy yesterday which showed a normal-appearing colon and multiple biopsies were obtained. Patient antibiotics have been changed to aztreonam along with Flagyl and patient is continued on as needed Benadryl along with calamine lotion showing some improvements in the questionable ALLERGIC reaction of medications. Cefepime was discontinued yesterday. Patient reports oral intake is poor and has not felt very hungry and continues with some diffuse abdominal pain in the left lower quadrant. Patient denies any pain or frequency with urination. White count is trending down and today is 17.36 with a hemoglobin of 12.0. Potassium is 3.3 and will replace per protocol and will follow-up with repeat labs. Patient is currently afebrile and has been for the last 2 days and will discuss further with infectious disease along with general surgery about treatment plan moving forward. Currently awaiting biopsy report and oncology is following as well. Encouraged increase activity as tolerated as patient has been mostly lying in the bed. Would recommend getting up and walking around more frequently. 06/21/2022 Patient is seen and evaluated in follow-up this morning currently febrile bundled up in many blankets sleeping although arousable. Patient reports he is not feeling well and continues to have diffuse abdominal pain with not much of an appetite. Patient reports he gets up to the bathroom otherwise has not been up out of the bed since yesterday. Encouraged increase activity as tolerated. Patient is now having fevers again T-max 103.1 today and is maintained on IV antibiotics in the form of Flagyl and is Azactam with infectious disease following and we'll transition to IV meropenem with repeat blood cultures, sputum culture, follow-up chest x-ray, labs including pro-calcitonin and CRP. Patient reports he has not been eating much and encouraged oral intake. General surgery following as there were concerns for colitis patient underwent colonoscopy which was normal appearing with multiple biopsies obtained biopsies not indicative of any neoplasms. Patient denies chest pain or shortness of breath and reports has no nausea or vomiting although a decreased appetite and not really hungry. 06/22/2022 Patient is seen and evaluated in follow-up this morning continuing to have feve rs with infectious disease, oncology, general surgery following. Patient is maintained on IV meropenem and cultures thus far have been negative. Patient's white count is jumping up to 32 and half discuss with consultants about possible transfer to [place] admission. Family and patient are agreeable with this and will attempt to initiate transfer. Patient does follow with Dr. sonido Vigil at [facility] as well as Dr. Gabriela glez here. Patient continues to have abdominal tenderness and no real appetite with some nausea but has not been vomiting. Gen. surgery following and have ordered repeat CT abdomen. Review of systems: Constitutional: reports of fatigue, reports of having fevers again today, or chills Cardiovascular: No reports of chest pain or palpitations Respiratory: No reports of shortness of breath or cough GI: no reports of nausea or vomiting, some diffuse abdominal left lower side pain and decreased oral intake : No reports of dysuria or retention Neurovascular: reports of generalized weakness, rash has improved All medications have been reviewed PHYSICAL EXAMINATION: GENERAL: The patient is awake, alert and oriented x3, Well developed, well nourished. HEENT: Pupils are round and equally reacting to light. EOMI. no scleral icterus. No conjunctival pallor. Normocephalic, atraumatic. No pharyngeal erythema. No thyromegaly. CARDIOVASCULAR: S1 and S2 muffled PULMONARY: diminished breath sounds bilaterally with no wheezing or rhonchi noted. ABDOMEN: soft. tender on exam of the left lower quadrant. non-distended, normoactive bowel sounds. No palpable organomegaly. MUSCULOSKELETAL: No joint swelling or deformity. EXTREMITIES: No cyanosis, clubbing, mild pedal edema mostly dependent. NEUROLOGICAL: Gross neurological examination did not reveal any focal deficits. SKIN: Generalized hive-like rash noted of bilateral lower extremities including abdomen back and upper extremities with significant improvement from yesterday and no longer raised Assessment: Fever with leukocytosis, possibly secondary to acute pharyngitis, or possibility of early signs of colitis or ileitis as noted on CT Features of sepsis, present on admission, including fevers and leukocytosis, possible viral etiology with unknown etiology Generalized rash, likely ALLERGIC reaction to possibly cefepime, improving Sore throat, possible acute pharyngitis Diffuse abdominal pain and CT abdomen showing concerns for multifocal colitis Recent iron infusion in the outpatient setting last Saturday History of mantle cell lymphoma History of atrial fibrillation, currently rate controlled History of basal cell carcinoma in 2013, in remission History of aortic aneurysm History bronchitis Lifelong nonsmoker GI prophylaxis DVT prophylaxis Full code Plan: Recommend to continue with current medications and management with infectious disease and oncology following. Patient is having new fevers again with diffuse abdominal pain and IV antibiotics being transition to Merrem and continue for now. Repeat cultures obtained including sputum and urinalysis and thus far negative General surgery Dr. Horne following and patient underwent colonoscopy which appeared normal and multiple biopsies were obtained and within normal limits, patient continues with abdominal pain and repeat CTA abdomen ordered and pending Patient is tolerating oral intake although extremely fair and not much of an appetite. Encouraged nutritional supplements and food from home if possible Oncology following as patient follows with Dr. Gan for history of for lymphoma, reports most recent PET scan was clear on 05/25/2022 and is not currently receiving treatment. Patient follows with at [facility] and attempted transfer for tertiary treatment and spoke with Dr. Rangel attending physician there who did discuss the current situation with oncology and has declined for transfer at this time. Family updated and aware and feels overall frustrated as patient is not getting any better Replace electrolytes per protocol and will follow-up with repeat labs in the a.m. Encouraged increased activity as tolerated as patient has been mostly lying in the bed during hospitalization. Patient with significant weakness and has had prolonged hospitalization and decline will consult PT/OT A cultures thus far have been negative and awaiting repeat cultures and will follow-up with repeat labs Prognosis is guarded The impression and plan of care has been dictated by Kika Jorgensen, nurse practitioner as directed. Dr. Miguel MD I have performed a history and examination and MDM of this patient, discussed the same with the dictator, and agree with the dictator's assessment and plan as written ,documented as a scribe. Based on total visit time, I have performed more than 50% of the visit. Any additional findings or plans will be noted. Objective - Vital Signs Vital signs: Vital Signs Temp 98.4 F 06/22/22 12:17 Pulse 100 06/22/22 12:17 Resp 18 06/22/22 12:17 BP 110/70 06/22/22 12:17 Pulse Ox 96 06/22/22 12:17 FiO2 Intake & Output 06/21/22 06/22/22 06/22/22 18:59 06:59 18:59 Intake Total 300 590 Output Total 450 Balance -150 590 Weight 86.183 kg Intake: Intake, IV Titration 300 Amount Aztreonam 2 gm In Sodium 100 Chloride 0.9% 100 ml @ 33 .3 mls/hr IVPB Q8HR [facility] Rx#:[id number] Meropenem 1 gm In Sodium 100 Chloride 0.9% 100 ml @ 33 .3 mls/hr IVPB Q8HR [facility] Rx#:[id number] metroNIDAZOLE-NS PMX 500 100 mg In Saline 1 100ml.bag @ 100 mls/hr IVPB Q8HR [facility] Rx#:[id number] Oral 590 Output: Urine 450 Other: Voiding Method Toilet Toilet # Voids 1 3 - Labs CBC & Chem 7: 06/22/22 06:46 06/22/22 06:46 Labs: Abnormal Lab Results - Last 24 Hours (Table) 06/21/22 06/21/22 06/21/22 Range/Units 12:13 12:13 15:40 WBC (4.50-10.00) X 10*3/uL RBC (4.40-5.60) X 10*6/uL Hgb (13.0-17.0) g/dL Hct (39.6-50.0) % MCHC (32.0-37.0) g/dL Immature Gran # (0.00-0.04) X 10*3/uL Neutrophils # (1.80-7.70) X 10*3/uL Calcium (8.7-10.3) mg/dL AST (14-35) U/L C-Reactive Protein 15.5 H (<1.0) mg/dL Total Protein (6.2-8.2) g/dL Albumin (3.8-4.9) g/dL Albumin/Globulin Ratio (1.60-3.17) g/dL Procalcitonin 0.31 H (0.02-0.09) ng/mL Urine Ketones 2+ H (Negative) Urine Blood Trace H (Negative) Urine Mucus Occasional H (None) /hpf 06/22/22 06/22/22 Range/Units 06:46 06:46 WBC 32.11 H (4.50-10.00) X 10*3/uL RBC 3.97 L (4.40-5.60) X 10*6/uL Hgb 12.0 L (13.0-17.0) g/dL Hct 38.2 L (39.6-50.0) % MCHC 31.4 L (32.0-37.0) g/dL Immature Gran # 0.20 H (0.00-0.04) X 10*3/uL Neutrophils # 29.47 H (1.80-7.70) X 10*3/uL Calcium 8.3 L (8.7-10.3) mg/dL AST 12 L (14-35) U/L C-Reactive Protein (<1.0) mg/dL Total Protein 5.1 L (6.2-8.2) g/dL Albumin 2.8 L (3.8-4.9) g/dL Albumin/Globulin Ratio 1.22 L (1.60-3.17) g/dL Procalcitonin (0.02-0.09) ng/mL Urine Ketones (Negative) Urine Blood (Negative) Urine Mucus (None) /hpf Microbiology - Last 24 Hours (Table) 06/17/22 12:33 Blood Culture - Preliminary Blood 06/17/22 12:49 Blood Culture - Preliminary Blood 06/21/22 15:40 Gram Stain - Preliminary Sputum Sputum Culture - Preliminary 06/21/22 14:31 Blood Fungal Culture - Preliminary Blood
[2022-06-23] MEDS: ACETAMINOPHEN TAB 325 MG TAB PO PRN ×2 (06:10→20:34)
[2022-06-23] MEDS: ONDANSETRON 4 MG/2 ML VIAL IVP PRN ×2 (06:15→20:34)
[2022-06-23] MEDS: PANTOPRAZOLE 40 MG/10 ML VIAL IVP SCH (08:59)
[2022-06-23] MEDS: MEROPENEM 1 GM in SODIUM CHLORIDE 0.9% 100 ML IVPB SCH ×2 (09:00→17:34)
[2022-06-23] MEDS: FLECAINIDE 50 MG TAB PO SCH ×2 (09:00→20:33)
[2022-06-23] MEDS: APIXABAN 5 MG TAB PO SCH ×2 (09:00→20:33)
--- NOTE | 2022-06-23 09:38 | P.PN ---
Progress Note - Text Progress Note Date: 06/23/22 Patient states he feels the same as yesterday. He has some mild complaints of pain. His repeat CAT scan performed yesterday shows evidence of a portion of the terminal ileum with inflammation. There is no free air or abscess noted. On exam vital signs are stable. Abdomen soft. There is mild tenderness throughout. There is no rebound or guarding. Patient's and his stated yesterday with like to be transferred to [facility]. Apparently he has a surgeon that he is has a relationship with at [facility]. Currently there is no surgical intervention planned. We'll follow with you.
[2022-06-23 10:13] LABS: Basophils # (A) 0.05 X 10*3/uL (0.00-0.10); Basophils % (A) 0.2 %; Eosinophils # (A) 0.17 X 10*3/uL (0.04-0.35); Eosinophils % (A) 0.6 %; HCT 40.4 % (39.6-50.0); HGB 12.4 g/dL (13.0-17.0); Immature Grans, Automated 0.6 %; Lymphocytes # (A) 0.95 X 10*3/uL (0.90-5.00); Lymphocytes % (A) 3.3 %; MCH 29.3 pg (27.0-32.0); MCHC 30.7 g/dL (32.0-37.0); MCV 95.5 fL (80.0-97.0); Mean Platelet Volume 10.8 fL (9.5-12.2); Monocytes # (A) 0.25 X 10*3/uL (0.20-1.00); Monocytes % (A) 0.9 %; NRBC Per 100 WBC 0 /100 WBCS (0.0-0.0); Neutrophils # (A) 27.16 X 10*3/uL (1.80-7.70); Neutrophils % (A) 94.4 %; Platelet Count 444 X 10*3/uL (140-440); RBC 4.23 X 10*6/uL (4.40-5.60); RDW 14.3 % (11.5-14.5); WBC 28.75 X 10*3/uL (4.50-10.00)
[2022-06-23 10:22] LABS: African American GFR (CKD) 103.5 (60.0-200.0); BUN/Creat Ratio 17.49 Ratio (12.00-20.00); Blood Urea Nitrogen 13.5 mg/dL (9.0-27.0); Calcium 8.4 mg/dL (8.7-10.3); Carbon Dioxide 26.2 mmol/L (20.0-27.5); Non-African American GFR(CKD) 89.3 (60.0-200.0); Potassium 3.6 mmol/L (3.5-5.5)
--- NOTE | 2022-06-23 15:33 | P.PN ---
Subjective Progress Note Date: 06/23/22 This is a pleasant 76-year-old male who presented to the emergency department with feelings of weakness along with fevers that have been ongoing since Saturday. Patient did follow with his oncologist Dr. Ochoa in the outpatient setting on May 04 and had blood work showing a mildly elevated white count of 12 and had been feeling generalized weakness and further labs were drawn including iron studies. reports patient was notified about the low iron recommending an infusion and went and had an IV iron transfusion on Saturday. Patient continued to have worsening symptoms throughout the weekend and persisted with fevers and persistent worsening weakness and encourage the patient to come to the ER for further evaluation. Patient is endorsing some mild abdominal discomfort with possible constipation and denies nausea or vomiting or diarrhea. Patient denies any recent sick contacts but reports this is been ongoing for the last 10 days. Patient reports he followed with his primary care provider Dr. Meza and encouraged follow-up with oncology as well as his dental ceramist. Patient did go to his dental ceramist had some labs drawn along with a chest x-ray showing no acute process and had a cardiac monitor technician on him which was normal with no abnormalities noted. 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 Patient is currently not receiving any active treatment for his lymphoma. Patient did have a chest x-ray here showing no acute cardiopulmonary process in the ER and also underwent a brain CT showing no acute intracranial process with nonspecific white matter changes secondary to chronic small vessel ischemic disease. Patient did have a CT abdomen/pelvis as well showing mild fat stranding changes and inflammation involving the left anterior abdominal fat near the descending colon to correlate for early colitis with no other findings within the abdomen or pelvis to correlate for an infectious or inflammatory process, some inflammation changes around the left kidney that could be secondary to above and to correlate with urinalysis there is no lymphadenopathy identified. Urinalysis was negative and all virology testings including influenza RSV Covid and strep were negative. Patient is having fevers and an elevated white count that was found to be 23.6 on admission. patient was admitted for leukocytosis and possible colitis with infectious disease and oncology on consult. Patient was started on meropenem and cefepime and did receive some fluid boluses in the ER. Lactic acid on admission was 1. 06/15/2022 Patient is seen and evaluated in follow-up this morning and has been afebrile and is being continued on antibiotics with infectious disease following along with oncology. Patient reports to feeling better and denies any abdominal pain and is tolerating diet with no reports of nausea or vomiting noted. Discussed with infectious disease as patient still continues to have an elevated white count of 19 recommend monitoring overnight with continued IV antibiotics. Encouraged increased activity as tolerated and encouraged oral intake. 06/16/2022 Patient is seen and evaluated today currently sitting up at the side of the bed reporting he is not feeling well and continues with nausea and was given some Zofran although continues to report nausea and some abdominal pain. Patient is having fevers and noted to have flush face with generalized malaise. Patient being followed by infectious disease along with oncology and maintained on IV antibiotics and ID recommending repeat CT abdomen is patient's abdomen is tender on palpation. Patient denies chest pain or shortness of breath. Awaiting a.m. labs as WBC remains elevated. 06/17/2022 Patient is seen and evaluated in follow-up this morning continuing to have fevers reporting he is having some nausea with dry heaves denies any diarrhea. Patient does report some diffuse abdominal pain occasionally and repeat CT abdomen with concerns of multifocal colitis. Patient is maintained on cefepime and Flagyl with infectious disease following closely. White count currently pending for this morning and oncology following as well as patient does have a history of mantle cell lymphoma and follows with Dr. Ochoa outpatient. Patient denies chest pain or shortness of breath currently and reports not much of an appetite given his continued nausea. 06/18/2022 Patient is seen in follow-up today sleeping although arousable. Patient is fatigued and continues to have fevers and continued with abdominal pain. Patient generally feels weak and unwell with multiple medical consultations following including infectious disease, oncology, no general surgery. Plan is to initiate bowel prep with possible colonoscopy with Dr. Parr tomorrow. Recommend holding Eliquis for the procedure. Patient is continued on IV cefepime and Flagyl and will continue for now. Patient continues to have low- grade temperatures reports to not eating very well as patient does have some nausea and no reports of vomiting. Patient reports constipation although has been having some bowel movements during admission. Patient denies diarrhea or any blood noted in the stool. 06/19/2022 Patient is seen in follow-up this morning is reporting generalized itchy rash noted throughout and is being monitored closely with infectious disease maintained on antibiotics in the form of cefepime and Flagyl. General surgery chandan farias with plans of colonoscopy today and has completed bowel prep. Patient is denying chest pain or shortness of breath, continues to report some diffuse abdominal pain and is afebrile today. No reports of nausea or vomiting and able to tolerate the GoLYTELY prep and is currently nothing by mouth. 06/20/2022 Patient is seen and evaluated in follow-up today currently maintained on IV antibiotics with infectious disease and general surgery following. Patient underwent colonoscopy yesterday which showed a normal-appearing colon and multiple biopsies were obtained. Patient antibiotics have been changed to aztreonam along with Flagyl and patient is continued on as needed Benadryl along with calamine lotion showing some improvements in the questionable ALLERGIC reaction of medications. Cefepime was discontinued yesterday. Patient reports oral intake is poor and has not felt very hungry and continues with some diffuse abdominal pain in the left lower quadrant. Patient denies any pain or frequency with urination. White count is trending down and today is 17.36 with a hemoglobin of 12.0. Potassium is 3.3 and will replace per protocol and will follow-up with repeat labs. Patient is currently afebrile and has been for the last 2 days and will discuss further with infectious disease along with general surgery about treatment plan moving forward. Currently awaiting biopsy report and oncology is following as well. Encouraged increase activity as tolerated as patient has been mostly lying in the bed. Would recommend getting up and walking around more frequently. 06/21/2022 Patient is seen and evaluated in follow-up this morning currently febrile bundled up in many blankets sleeping although arousable. Patient reports he is not feeling well and continues to have diffuse abdominal pain with not much of an appetite. Patient reports he gets up to the bathroom otherwise has not been up out of the bed since yesterday. Encouraged increase activity as tolerated. Patient is now having fevers again T-max 103.1 today and is maintained on IV antibiotics in the form of Flagyl and is Azactam with infectious disease following and we'll transition to IV meropenem with repeat blood cultures, sputum culture, follow-up chest x-ray, labs including pro-calcitonin and CRP. Patient reports he has not been eating much and encouraged oral intake. General surgery following as there were concerns for colitis patient underwent colonoscopy which was normal appearing with multiple biopsies obtained biopsies not indicative of any neoplasms. Patient denies chest pain or shortness of breath and reports has no nausea or vomiting although a decreased appetite and not really hungry. 06/22/2022 Patient is seen and evaluated in follow-up this morning continuing to have fever s with infectious disease, oncology, general surgery following. Patient is maintained on IV meropenem and cultures thus far have been negative. Patient's white count is jumping up to 32 and half discuss with consultants about [facility]. Family and patient are agreeable with this and will attempt to initiate transfer. Patient does follow with Dr. sonido Vigil at [facility] as well as Dr. Gabriela glez here. Patient continues to have abdominal tenderness and no real appetite with some nausea but has not been vomiting. Gen. surgery following and have ordered repeat CT abdomen. 06/23 Patient seen and examined. Currently sitting comfortably in the bed, family at the bedside. No acute issues overnight. REVIEW OF SYSTEMS: CONSTITUTIONAL: No fever, no malaise,. CARDIOVASCULAR: No chest pain, no palpitations, no syncope. PULMONARY: No shortness of breath, no cough, GASTROINTESTINAL: No diarrhea, no nausea, no vomiting, no abdominal pain. NEUROLOGICAL: No headaches, no weakness, PHYSICAL EXAMINATION: GENERAL: The patient is alert and oriented x3, not in any acute distress. Well developed, well nourished. HEENT: Pupils are round and equally reacting to light. EOMI. No scleral icterus. No conjunctival pallor. Normocephalic, atraumatic. No pharyngeal erythema. No thyromegaly. CARDIOVASCULAR: S1 and S2 present. No murmurs, rubs, or gallops. PULMONARY: Chest is clear to auscultation, no wheezing or crackles. ABDOMEN: Soft, nontender, nondistended, normoactive bowel sounds. No palpable organomegaly. MUSCULOSKELETAL: No joint swelling or deformity. EXTREMITIES: No cyanosis, clubbing, or pedal edema. NEUROLOGICAL: Gross neurological examination did not reveal any focal deficits. SKIN: No rashes. Assessment and plan Fever with leukocytosis, possibly secondary to acute pharyngitis, or possibility of early signs of colitis or ileitis as noted on CT Features of sepsis, present on admission, including fevers and leukocytosis, possible viral etiology with unknown etiology Generalized rash, likely ALLERGIC reaction to possibly cefepime, improving Sore throat, possible acute pharyngitis Diffuse abdominal pain and CT abdomen showing concerns for multifocal colitis Recent iron infusion in the outpatient setting last Saturday History of mantle cell lymphoma History of atrial fibrillation, currently rate controlled History of basal cell carcinoma in 2013, in remission History of aortic aneurysm History bronchitis Lifelong nonsmoker Monitor vital signs Monitor CBC Monitor CMP Follow-up on blood cultures Continue IV meropenem General surgery Dr. Horne following and patient underwent colonoscopy which appeared normal and multiple biopsies were obtained and within normal limits, Repeat CT abdominal pelvis done showed inflammatory/infectious ileitis Oncology following as patient follows with Dr. Gan for history of for lymphoma, reports most recent PET scan was clear on 05/25/2022 and is not currently receiving treatment. Patient follows with at [facility] and attempted transfer for tertiary treatment and spoke with Dr. Rangel attending physician there who did discuss the current situation with oncology and has declined for transfer at this time. Family updated and aware and feels overall frustrated as patient is not getting any better Replace electrolytes per protocol and will follow-up with repeat labs in the a.m. Encouraged increased activity as tolerated as patient has been mostly lying in the bed during hospitalization. Patient with significant weakness and has had prolonged hospitalization. Follow-up on PTOT recommendations Objective - Vital Signs Vital signs: Vital Signs Temp 99.2 F 06/23/22 08:07 Pulse 118 H 06/23/22 06:06 Resp 18 06/23/22 06:06 BP 130/70 06/23/22 06:06 Pulse Ox 94 L 06/23/22 06:06 FiO2 Intake & Output 06/22/22 06/23/22 06/23/22 18:59 06:59 18:59 Intake Total 100 Balance 100 Weight 86.183 kg Intake: Intake, IV Titration 100 Amount Meropenem 1 gm In Sodium 100 Chloride 0.9% 100 ml @ 33 .3 mls/hr IVPB Q8HR [facility] Rx#:[id number] Other: Voiding Method Toilet Toilet Toilet # Voids 2 2 - Labs CBC & Chem 7: 06/23/22 05:38 06/23/22 05:38 Labs: Abnormal Lab Results - Last 24 Hours (Table) 06/23/22 06/23/22 Range/Units 05:38 05:38 WBC 28.75 H (4.50-10.00) X 10*3/uL RBC 4.23 L (4.40-5.60) X 10*6/uL Hgb 12.4 L (13.0-17.0) g/dL MCHC 30.7 L (32.0-37.0) g/dL Plt Count 444 H (140-440) X 10*3/uL Immature Gran # 0.17 H (0.00-0.04) X 10*3/uL Neutrophils # 27.16 H (1.80-7.70) X 10*3/uL Calcium 8.4 L (8.7-10.3) mg/dL Microbiology - Last 24 Hours (Table) 06/17/22 12:33 Blood Culture - Final Blood 06/17/22 12:49 Blood Culture - Final Blood 06/21/22 17:48 Blood Culture - Preliminary Blood 06/21/22 12:13 Blood Culture - Preliminary Blood 06/21/22 15:40 Gram Stain - Final Sputum Sputum Culture - Final
[2022-06-23] MEDS: DILTIAZEM CD 120 MG CAP.ER.24H PO SCH (20:33)
[2022-06-24] MEDS: MEROPENEM 1 GM in SODIUM CHLORIDE 0.9% 100 ML IVPB SCH ×4 (00:21→23:59)
[2022-06-24] MEDS: PANTOPRAZOLE 40 MG/10 ML VIAL IVP SCH (08:20)
[2022-06-24] MEDS: FLECAINIDE 50 MG TAB PO SCH ×2 (08:21→20:47)
[2022-06-24] MEDS: APIXABAN 5 MG TAB PO SCH ×2 (08:21→20:47)
--- NOTE | 2022-06-24 08:31 | P.PN ---
Subjective Progress Note Date: 06/23/22 Principal diagnosis: Fever/colitis Patient is a 76-year-old male with a past medical history significant for lymphoma currently in remission and recently received an iron transfusion presenting to the hospital with symptoms of some mental status changes the patient also complaining of sore throat and lower abdominal discomfort, patient did have a CT abdominal pelvis suspicious for colitis involving the sigmoid region. Patient is status post colonoscopy on 06/19/2022 apparently normal- appearing colon, random biopsies were done On today's evaluation that is 06/23/2022, the patient did spike a fever yesterday afternoon and the patient did have a repeat CT of abdominal pelvis, as of this morning the patient fever pattern has improved and the patient mentioned feeling slightly better, has been coming of some nausea but no vomiting and abdominal discomfort but no worsening denies having any diarrhea no chest pain shortness of breath or cough Objective - Vital Signs Vital signs: Vital Signs Temp 99.2 F 06/23/22 08:07 Pulse 118 H 06/23/22 06:06 Resp 18 06/23/22 06:06 BP 130/70 06/23/22 06:06 Pulse Ox 94 L 06/23/22 06:06 FiO2 Intake & Output 06/22/22 06/23/22 06/23/22 18:59 06:59 18:59 Intake Total 100 Balance 100 Weight 86.183 kg Intake: Intake, IV Titration 100 Amount Meropenem 1 gm In Sodium 100 Chloride 0.9% 100 ml @ 33 .3 mls/hr IVPB Q8HR [facility] Rx#:[id number] Other: Voiding Method Toilet Toilet Toilet # Voids 2 2 - Exam GENERAL DESCRIPTION: An elderly male lying in bed in no distress RESPIRATORY SYSTEM: Unlabored breathing , decreased breath sounds at bases HEART: S1 S2 regular rate and rhythm , ABDOMEN: Soft , mild distention and tenderness EXTREMITIES: No edema feet - Labs CBC & Chem 7: 06/23/22 05:38 06/23/22 05:38 Labs: Abnormal Lab Results - Last 24 Hours (Table) 06/23/22 06/23/22 Range/Units 05:38 05:38 WBC 28.75 H (4.50-10.00) X 10*3/uL RBC 4.23 L (4.40-5.60) X 10*6/uL Hgb 12.4 L (13.0-17.0) g/dL MCHC 30.7 L (32.0-37.0) g/dL Plt Count 444 H (140-440) X 10*3/uL Immature Gran # 0.17 H (0.00-0.04) X 10*3/uL Neutrophils # 27.16 H (1.80-7.70) X 10*3/uL Calcium 8.4 L (8.7-10.3) mg/dL Microbiology - Last 24 Hours (Table) 06/17/22 12:33 Blood Culture - Final Blood 06/17/22 12:49 Blood Culture - Final Blood 06/21/22 17:48 Blood Culture - Preliminary Blood 06/21/22 12:13 Blood Culture - Preliminary Blood 06/21/22 15:40 Gram Stain - Final Sputum Sputum Culture - Final Assessment and Plan (1) Colitis Current Visit: Yes Status: Acute Priority: High Code(s): K52.9 - NONINFECTIVE GASTROENTERITIS AND COLITIS, UNSPECIFIED SNOMED Code(s): 07615795 (2) Febrile illness Current Visit: Yes Status: Acute Code(s): R50.9 - FEVER, UNSPECIFIED SNOMED Code(s): 827469792 Plan: 1patient presented to hospital with fever did have elevated white count with abdominal pain and constipation meeting criteria for sepsis source is likely colitis/diverticulitis and need to cover for enteric gram-negative both anaerobes and anaerobes, abnormality to the left kidney described on the CT however the patient did have a negative UA and no urinary symptoms 2-patient with a penicillin allergy that would limit the number of antibiotics s afe to use 3-patient has been spiking fever and did have different area of the colon with inflammatory changes on the previous 2 CTs, CT completed yesterday did not show any multifocal colitis seen on the previous CT but it shows involvement of the ileum with concern for possible ischemia as the patient did have a history of atrial fibrillation, patient did have multiple blood cultures and those remains to be negative, patient may benefit from repeat colonoscopy continue with IV fluids and broad-spectrum antibiotics Multiple family members at the bedside their multiple questions and concerns were answered in Layman terms Time with Patient: Greater than 30
[2022-06-24] MEDS: ACETAMINOPHEN TAB 325 MG TAB PO PRN (10:53)
--- NOTE | 2022-06-24 11:27 | P.PN ---
Progress Note - Text Progress Note Date: 06/24/22 The patient states he feels slightly better. He still has complaints of abdominal pain. His white count decreased to 28,000 from 32,000. On exam vital signs are stable. Abdomen soft. Enteritis. Patient continue receive supportive care.
--- NOTE | 2022-06-24 15:24 | P.PN ---
Subjective Progress Note Date: 06/24/22 This is a pleasant 76-year-old male who presented to the emergency department with feelings of weakness along with fevers that have been ongoing since Saturday. Patient did follow with his oncologist Dr. Ochoa in the outpatient setting on May 04 and had blood work showing a mildly elevated white count of 12 and had been feeling generalized weakness and further labs were drawn including iron studies. reports patient was notified about the low iron recommending an infusion and went and had an IV iron transfusion on Saturday. Patient continued to have worsening symptoms throughout the weekend and persisted with fevers and persistent worsening weakness and encourage the patient to come to the ER for further evaluation. Patient is endorsing some mild abdominal discomfort with possible constipation and denies nausea or vomiting or diarrhea. Patient denies any recent sick contacts but reports this is been ongoing for the last 10 days. Patient reports he followed with his primary care provider Dr. 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 Patient did go to his metallurgical or materials technician had some labs drawn along with a chest x-ray showing no acute process and had a playground monitor on him which was normal with no abnormalities noted. 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 Patient is currently not receiving any active treatment for his lymphoma. Patient did have a chest x-ray here showing no acute cardiopulmonary process in the ER and also underwent a brain CT showing no acute intracranial process with nonspecific white matter changes secondary to chronic small vessel ischemic disease. Patient did have a CT abdomen/pelvis as well showing mild fat stranding changes and inflammation involving the left anterior abdominal fat near the descending colon to correlate for early colitis with no other findings within the abdomen or pelvis to correlate for an infectious or inflammatory process, some inflammation changes around the left kidney that could be secondary to above and to correlate with urinalysis there is no lymphadenopathy identified. Urinalysis was negative and all virology testings including influenza RSV Covid and strep were negative. Patient is having fevers and an elevated white count that was found to be 23.6 on admission. patient was admitted for leukocytosis and possible colitis with infectious disease and oncology on consult. Patient was started on meropenem and cefepime and did receive some fluid boluses in the ER. Lactic acid on admission was 1. 06/15/2022 Patient is seen and evaluated in follow-up this morning and has been afebrile and is being continued on antibiotics with infectious disease following along with oncology. Patient reports to feeling better and denies any abdominal pain and is tolerating diet with no reports of nausea or vomiting noted. Discussed with infectious disease as patient still continues to have an elevated white count of 19 recommend monitoring overnight with continued IV antibiotics. Encouraged increased activity as tolerated and encouraged oral intake. 06/16/2022 Patient is seen and evaluated today currently sitting up at the side of the bed reporting he is not feeling well and continues with nausea and was given some Zofran although continues to report nausea and some abdominal pain. Patient is having fevers and noted to have flush face with generalized malaise. Patient being followed by infectious disease along with oncology and maintained on IV antibiotics and ID recommending repeat CT abdomen is patient's abdomen is tender on palpation. Patient denies chest pain or shortness of breath. Awaiting a.m. labs as WBC remains elevated. 06/17/2022 Patient is seen and evaluated in follow-up this morning continuing to have fevers reporting he is having some nausea with dry heaves denies any diarrhea. Patient does report some diffuse abdominal pain occasionally and repeat CT abdomen with concerns of multifocal colitis. Patient is maintained on cefepime and Flagyl with infectious disease following closely. White count currently pending for this morning and oncology following as well as patient does have a history of mantle cell lymphoma and follows with Dr. Ochoa outpatient. Patient denies chest pain or shortness of breath currently and reports not much of an appetite given his continued nausea. 06/18/2022 Patient is seen in follow-up today sleeping although arousable. Patient is fatigued and continues to have fevers and continued with abdominal pain. Patient generally feels weak and unwell with multiple medical consultations following including infectious disease, oncology, no general surgery. Plan is to initiate bowel prep with possible colonoscopy with Dr. Parr tomorrow. Recommend holding Eliquis for the procedure. Patient is continued on IV cefepime and Flagyl and will continue for now. Patient continues to have low- grade temperatures reports to not eating very well as patient does have some nausea and no reports of vomiting. Patient reports constipation although has been having some bowel movements during admission. Patient denies diarrhea or any blood noted in the stool. 06/19/2022 Patient is seen in follow-up this morning is reporting generalized itchy rash noted throughout and is being monitored closely with infectious disease maintained on antibiotics in the form of cefepime and Flagyl. General surgery chandan farias with plans of colonoscopy today and has completed bowel prep. Patient is denying chest pain or shortness of breath, continues to report some diffuse abdominal pain and is afebrile today. No reports of nausea or vomiting and able to tolerate the GoLYTELY prep and is currently nothing by mouth. 06/20/2022 Patient is seen and evaluated in follow-up today currently maintained on IV antibiotics with infectious disease and general surgery following. Patient underwent colonoscopy yesterday which showed a normal-appearing colon and multiple biopsies were obtained. Patient antibiotics have been changed to aztreonam along with Flagyl and patient is continued on as needed Benadryl along with calamine lotion showing some improvements in the questionable ALLERGIC reaction of medications. Cefepime was discontinued yesterday. Patient reports oral intake is poor and has not felt very hungry and continues with some diffuse abdominal pain in the left lower quadrant. Patient denies any pain or frequency with urination. White count is trending down and today is 17.36 with a hemoglobin of 12.0. Potassium is 3.3 and will replace per protocol and will follow-up with repeat labs. Patient is currently afebrile and has been for the last 2 days and will discuss further with infectious disease along with general surgery about treatment plan moving forward. Currently awaiting biopsy report and oncology is following as well. Encouraged increase activity as tolerated as patient has been mostly lying in the bed. Would recommend getting up and walking around more frequently. 06/21/2022 Patient is seen and evaluated in follow-up this morning currently febrile bundled up in many blankets sleeping although arousable. Patient reports he is not feeling well and continues to have diffuse abdominal pain with not much of an appetite. Patient reports he gets up to the bathroom otherwise has not been up out of the bed since yesterday. Encouraged increase activity as tolerated. Patient is now having fevers again T-max 103.1 today and is maintained on IV antibiotics in the form of Flagyl and is Azactam with infectious disease following and we'll transition to IV meropenem with repeat blood cultures, sputum culture, follow-up chest x-ray, labs including pro-calcitonin and CRP. Patient reports he has not been eating much and encouraged oral intake. General surgery following as there were concerns for colitis patient underwent colonoscopy which was normal appearing with multiple biopsies obtained biopsies not indicative of any neoplasms. Patient denies chest pain or shortness of breath and reports has no nausea or vomiting although a decreased appetite and not really hungry. 06/22/2022 Patient is seen and evaluated in follow-up this morning continuing to have fever s with infectious disease, oncology, general surgery following. Patient is maintained on IV meropenem and cultures thus far have been negative. Patient's white count is jumping up to 32 and half discuss with consultants about [facility] Family and patient are agreeable with this and will attempt to initiate transfer. Patient does follow with Dr. sonido Vigil at [facility] as well as Dr. Gabriela glez here. Patient continues to have abdominal tenderness and no real appetite with some nausea but has not been vomiting. Gen. surgery following and have ordered repeat CT abdomen. 06/23 Patient seen and examined. Currently sitting comfortably in the bed, family at the bedside. No acute issues overnight. 06/24. Patient has been spiking fevers overnight. Complaining of chills during those episodes of fever . at the bedside REVIEW OF SYSTEMS: CONSTITUTIONAL: As mentioned above CARDIOVASCULAR: No chest pain, no palpitations, no syncope. PULMONARY: No shortness of breath, no cough, GASTROINTESTINAL: No diarrhea, no nausea, no vomiting, no abdominal pain. NEUROLOGICAL: No headaches, no weakness, PHYSICAL EXAMINATION: GENERAL: The patient is alert and oriented x3, not in any acute distress. Well developed, well nourished. HEENT: Pupils are round and equally reacting to light. EOMI. No scleral icterus. No conjunctival pallor. Normocephalic, atraumatic. No pharyngeal erythema. No thyromegaly. CARDIOVASCULAR: S1 and S2 present. No murmurs, rubs, or gallops. PULMONARY: Chest is clear to auscultation, no wheezing or crackles. ABDOMEN: Soft, nontender, nondistended, normoactive bowel sounds. No palpable organomegaly. MUSCULOSKELETAL: No joint swelling or deformity. EXTREMITIES: No cyanosis, clubbing, or pedal edema. NEUROLOGICAL: Gross neurological examination did not reveal any focal deficits. SKIN: No rashes. Assessment and plan Fever with leukocytosis, possibly secondary to acute pharyngitis, or possibility of early signs of colitis or ileitis as noted on CT Features of sepsis, present on admission, including fevers and leukocytosis, possible viral etiology with unknown etiology Generalized rash, likely ALLERGIC reaction to possibly cefepime, improving Sore throat, possible acute pharyngitis Diffuse abdominal pain and CT abdomen showing concerns for multifocal colitis Recent iron infusion in the outpatient setting last Saturday History of mantle cell lymphoma History of atrial fibrillation, currently rate controlled History of basal cell carcinoma in 2012, in remission History of aortic aneurysm History bronchitis Lifelong nonsmoker Monitor vital signs Monitor CBC Monitor CMP Follow-up on blood cultures Continue IV meropenem General surgery Dr. Horne following and patient underwent colonoscopy which appeared normal and multiple biopsies were obtained and within normal limits, Repeat CT abdominal pelvis done showed inflammatory/infectious ileitis Oncology following as patient follows with Dr. Gan for history of for lymph diego, reports most recent PET scan was clear on 05/25/2022 and is not currently receiving treatment. Patient follows with at [facility] and attempted transfer for tertiary treatment and spoke with Dr. Rangel attending physician there who did discuss the current situation with oncology and has declined for transfer at this time. Family updated and aware and feels overall frustrated as patient is not getting any better Replace electrolytes per protocol and will follow-up with repeat labs in the a.m. Encouraged increased activity as tolerated as patient has been mostly lying in the bed during hospitalization. Patient with significant weakness and has had prolonged hospitalization. Follow-up on PTOT recommendations Objective - Vital Signs Vital signs: Vital Signs Temp 98.5 F 06/24/22 14:03 Pulse 85 06/24/22 14:03 Resp 16 06/24/22 14:03 BP 105/64 06/24/22 14:03 Pulse Ox 92 L 06/24/22 14:03 FiO2 Intake & Output 06/23/22 06/24/22 06/24/22 18:59 06:59 18:59 Intake Total 100 300 Balance 100 300 Intake: Intake, IV Titration 100 100 Amount Meropenem 1 gm In Sodium 100 100 Chloride 0.9% 100 ml @ 33 .3 mls/hr IVPB Q8HR [facility] Rx#:[id number] Oral 200 Other: Voiding Method Toilet Toilet Toilet # Voids 2 - Labs CBC & Chem 7: 06/23/22 05:38 06/23/22 05:38 Labs: Microbiology - Last 24 Hours (Table) 06/21/22 17:48 Blood Culture - Preliminary Blood 06/21/22 12:13 Blood Culture - Preliminary Blood
--- NOTE | 2022-06-24 18:46 | P.PN ---
Subjective Progress Note Date: 06/24/22 patient continues to have intermittent fever, persistent abdominal pain, nausea and intermittent diarrhea. No obvious bleeding. No blood in the stool. Objective - Vital Signs Vital signs: Vital Signs Temp 98.5 F 06/24/22 14:03 Pulse 85 06/24/22 14:03 Resp 16 06/24/22 14:03 BP 105/64 06/24/22 14:03 Pulse Ox 92 L 06/24/22 14:03 FiO2 Intake & Output 06/23/22 06/24/22 06/24/22 18:59 06:59 18:59 Intake Total 100 300 100 Balance 100 300 100 Intake: Intake, IV Titration 100 100 100 Amount Meropenem 1 gm In Sodium 100 100 100 Chloride 0.9% 100 ml @ 33 .3 mls/hr IVPB Q8HR [facility] Rx#:[id number] Oral 200 Other: Voiding Method Toilet Toilet Toilet # Voids 2 2 - Constitutional General appearance: Present: mild distress - EENT Eyes: Present: EOMI ENT: Present: hearing grossly normal, normal oropharynx - Respiratory Respiratory: bilateral: CTA - Cardiovascular Rhythm: regular Heart sounds: normal: S1, S2 - Gastrointestinal General gastrointestinal: Present: soft, tenderness (diffuse, generalized) - Integumentary Integumentary: Present: normal - Neurologic Neurologic: Present: CNII-XII intact - Musculoskeletal Musculoskeletal: Present: generalized weakness, strength equal bilaterally - Psychiatric Psychiatric: Present: A&O x's 3, appropriate affect - Labs CBC & Chem 7: 06/23/22 05:38 06/23/22 05:38 Labs: Microbiology - Last 24 Hours (Table) 06/21/22 17:48 Blood Culture - Preliminary Blood 06/21/22 12:13 Blood Culture - Preliminary Blood Assessment and Plan (1) Febrile illness Narrative/Plan: patient continues to have intermittent fevers, persistent abdominal pain, and leukocytosis. Cultures have been negative. - Clinically the source appears to be the abdomen. However CT scans have shown differing findings, including sigmoid colitis, then more diffuse colitis, and n ow inflammation in the area of the ileum on the third CT scan. Abdominal symptoms persist. - Patient's colonoscopy was negative on visualization, and biopsies. - Case was discussed in detail with ID, and general surgery. Differentials include peritoneal involvement with lymphoma, or infection, as well as infection. However the presentation and imaging characteristics are not typical of either of these differentials. visit for discussed with surgery, to consider doing a laparoscopic evaluation with possible biopsies. They will evaluate the most recent CT scan, and discuss the same with the patient - The above plan was also discussed with the patient. He stated that he would be willing for a laparoscopic procedure if indicated - Of transfer had been requested to the [facility], where the patient gets his oncologic care primarily. However the transfer has not been accepted. Current Visit: Yes Status: Acute Code(s): R50.9 - FEVER, UNSPECIFIED SNOMED Code(s): 588338256 (2) Abdominal pain Narrative/Plan: assessment and plan as documented above Current Visit: Yes Status: Acute Priority: High Code(s): R10.9 - UNSPEC IFIED ABDOMINAL PAIN SNOMED Code(s): 84440854
[2022-06-24] MEDS: DILTIAZEM CD 120 MG CAP.ER.24H PO SCH (20:47)
--- NOTE | 2022-06-24 23:03 | P.PN ---
Subjective Progress Note Date: 06/24/22 Principal diagnosis: Fever/colitis Patient is a 76-year-old male with a past medical history significant for lymphoma currently in remission and recently received an iron transfusion presenting to the hospital with symptoms of some mental status changes the patient also complaining of sore throat and lower abdominal discomfort, patient did have a CT abdominal pelvis suspicious for colitis involving the sigmoid region. Patient is status post colonoscopy on 06/19/2022 apparently normal- appearing colon, random biopsies were done On today's evaluation that is 06/24/2022, the patient did spike a fever of 101 orally this morning, patient denies having any headache or URI symptoms no chest pain shortness of breath or cough, has been coming of some nausea but no vom iting and abdominal discomfort but no worsening denies having any diarrhea Objective - Vital Signs Vital signs: Vital Signs Temp 99.2 F 06/24/22 09:14 Pulse 94 06/24/22 08:05 Resp 18 06/24/22 08:05 BP 132/76 06/24/22 08:05 Pulse Ox 93 L 06/24/22 08:05 FiO2 Intake & Output 06/23/22 06/24/22 06/24/22 18:59 06:59 18:59 Intake Total 100 300 Balance 100 300 Intake: Intake, IV Titration 100 100 Amount Meropenem 1 gm In Sodium 100 100 Chloride 0.9% 100 ml @ 33 .3 mls/hr IVPB Q8HR [facility] Rx#:[id number] Oral 200 Other: Voiding Method Toilet Toilet Toilet # Voids 2 - Exam GENERAL DESCRIPTION: An elderly male lying in bed in no distress RESPIRATORY SYSTEM: Unlabored breathing , decreased breath sounds at bases HEART: S1 S2 regular rate and rhythm , ABDOMEN: Soft , mild distention and tenderness EXTREMITIES: No edema feet - Labs CBC & Chem 7: 06/23/22 05:38 06/23/22 05:38 Labs: Abnormal Lab Results - Last 24 Hours (Table) 06/23/22 06/23/22 Range/Units 05:38 05:38 WBC 28.75 H (4.50-10.00) X 10*3/uL RBC 4.23 L (4.40-5.60) X 10*6/uL Hgb 12.4 L (13.0-17.0) g/dL MCHC 30.7 L (32.0-37.0) g/dL Plt Count 444 H (140-440) X 10*3/uL Immature Gran # 0.17 H (0.00-0.04) X 10*3/uL Neutrophils # 27.16 H (1.80-7.70) X 10*3/uL Calcium 8.4 L (8.7-10.3) mg/dL Microbiology - Last 24 Hours (Table) 06/17/22 12:33 Blood Culture - Final Blood 06/17/22 12:49 Blood Culture - Final Blood 06/21/22 17:48 Blood Culture - Preliminary Blood 06/21/22 12:13 Blood Culture - Preliminary Blood 06/21/22 15:40 Gram Stain - Final Sputum Sputum Culture - Final Assessment and Plan (1) Colitis Current Visit: Yes Status: Acute Priority: High Code(s): K52.9 - NONINFECTIVE GASTROENTERITIS AND COLITIS, UNSPECIFIED SNOMED Code(s): 20915518 (2) Febrile illness Current Visit: Yes Status: Acute Code(s): R50.9 - FEVER, UNSPECIFIED SNOMED Code(s): 368787056 Plan: 1patient presented to hospital with fever did have elevated white count with abdominal pain and constipation meeting criteria for sepsis source is likely colitis/diverticulitis and need to cover for enteric gram-negative both anaerobes and anaerobes, abnormality to the left kidney described on the CT however the patient did have a negative UA and no urinary symptoms 2-patient with a penicillin allergy that would limit the number of antibiotics safe to use 3-patient has been spiking fever and did have different area of the colon with inflammatory changes on the previous 2 CTs, CT completed yesterday did not show any multifocal colitis seen on the previous CT but it shows involvement of the ileum with concern for possible ischemia as the patient did have a history of atrial fibrillation versus possible recurrence of lymphoma detailed discussion with his oncologist and the patient will benefit from laparoscopic and biopsy, we will continue with IV fluids and meropenem at the bedside questions were answered Time with Patient: Less than 30
[2022-06-25] MEDS: APIXABAN 5 MG TAB PO SCH ×2 (09:04→19:59)
[2022-06-25] MEDS: PANTOPRAZOLE 40 MG/10 ML VIAL IVP SCH (09:04)
[2022-06-25] MEDS: MEROPENEM 1 GM in SODIUM CHLORIDE 0.9% 100 ML IVPB SCH ×3 (09:04→23:49)
[2022-06-25] MEDS: FLECAINIDE 50 MG TAB PO SCH ×2 (09:04→19:59)
[2022-06-25 11:11] LABS: Basophils # (A) 0.08 X 10*3/uL (0.00-0.10); Basophils % (A) 0.4 %; Eosinophils # (A) 0.37 X 10*3/uL (0.04-0.35); Eosinophils % (A) 1.7 %; HCT 37.1 % (39.6-50.0); HGB 11.6 g/dL (13.0-17.0); Immature Grans, Automated 0.4 %; Lymphocytes # (A) 1.62 X 10*3/uL (0.90-5.00); Lymphocytes % (A) 7.3 %; MCH 29.8 pg (27.0-32.0); MCHC 31.3 g/dL (32.0-37.0); MCV 95.4 fL (80.0-97.0); Mean Platelet Volume 10.7 fL (9.5-12.2); Monocytes # (A) 0.41 X 10*3/uL (0.20-1.00); Monocytes % (A) 1.9 %; NRBC Per 100 WBC 0 /100 WBCS (0.0-0.0); Neutrophils # (A) 19.48 X 10*3/uL (1.80-7.70); Neutrophils % (A) 88.3 %; Platelet Count 425 X 10*3/uL (140-440); RBC 3.89 X 10*6/uL (4.40-5.60); RDW 14.3 % (11.5-14.5); WBC 22.05 X 10*3/uL (4.50-10.00)
[2022-06-25 11:26] LABS: African American GFR (CKD) 108.6 (60.0-200.0); Albumin 2.6 g/dL (3.8-4.9); Albumin/Globulin Ratio 1.14 (1.60-3.17); Anion Gap 12.2 mmol/L (10.00-18.00); BUN/Creat Ratio 19.8 Ratio (12.00-20.00); Blood Urea Nitrogen 13.6 mg/dL (9.0-27.0); Carbon Dioxide 27.9 mmol/L (20.0-27.5); Globulin 2.3 g/dL (1.6-3.3); Non-African American GFR(CKD) 93.7 (60.0-200.0); Potassium 3.2 mmol/L (3.5-5.5); Total Bilirubin 0.3 mg/dL (0.30-1.20)
[2022-06-25] MEDS ORDERED: POTASSIUM CHLORIDE ER 20 MEQ TAB.ER PO STA (11:38)
--- NOTE | 2022-06-25 11:42 | P.PN ---
Subjective Progress Note Date: 06/25/22 CHIEF COMPLAINT: Colitis HISTORY OF PRESENT ILLNESS: Patient is status post colonoscopy with random biops ies. Colonoscopy was normal appearing. Biopsy results benign colonic mucosa. Patient reports that he has no abdominal pain or discomfort. He has been having diarrhea. Appetite is still poor. Denies any nausea or vomiting. Patient did have a fever of 101.4 yesterday. Currently afebrile. WBC is down from 2820 2H Lisandro is 11.6 platelets 425 na 141 potassium 3.2 creatinine 0.7 computed tomog jane scan head showed appearance of mild wall thickening along the distal ileum for a span of approximately 2 cm. Correlate for nonspecific infectious or inflammatory ileitis. No abscess or free air. PHYSICAL EXAM: VITAL SIGNS: Reviewed. GENERAL: Well-developed in no acute distress. HEENT: No sclera icterus. Extraocular movements grossly intact. Moist buccal mucosa. Head is atraumatic, normocephalic. ABDOMEN: Soft. Nondistended. Diffuse abdominal pain. With tenderness more in the left lower abdomen NEUROLOGIC: Alert and oriented ASSESSMENT: 1. Ileitis 2. Colitis with normal colonoscopy 3. History of lymphoma 4. Hypokalemia PLAN: -Check stool cultures and stool for C. diff -Continue antibiotics -Replace potassium -Repeat labs in AM Physician [employer] note has been reviewed by physician. Signing provider agrees with the documented findings, assessment, and plan of care. I have personally seen and examined the patient, reviewed the HAIR BLENDER /PAs history, exam and MDM and agree with the assessment and plan as written. Based on total visit time, I have performed more than 50% of the visit. As above: Patient denies abdominal pain or discomfort today. The patient's w vern was on speaker phone during our evaluation today. I reviewed the CAT scan from Saturday. The changes in the terminal ileum were quite subtle. The CAT scan findings were reviewed. We discussed the options of diagnostic laparoscopy. Patient states he is not interested in surgery unless we believe it's necessary. I do not believe that laparoscopy is going to lead to any significant change in this patient's management. He is having some loose stools over the weekend. Agree with stool studies. He is also complaining of a sore throat which he says has been going on. Etiology for this significant leukocytosis remains unclear. Once again discussed the options of tertiary care evaluation for second opinion purposes especially given the previous history of bone marrow transplantation. Continue regular diet. Await stool cultures. Continue antibiotics. We'll follow with you. Spoke with both oncology and medicine regarding our decision to not proceed with diagnostic laparoscopy at this time. Objective - Vital Signs Vital signs: Vital Signs Temp 98.7 F 06/25/22 07:29 Pulse 85 06/25/22 07:29 Resp 16 06/25/22 07:29 BP 143/80 06/25/22 07:29 Pulse Ox 96 06/25/22 08:05 FiO2 Intake & Output 06/24/22 06/25/22 06/25/22 18:59 06:59 18:59 Intake Total 100 400 Balance 100 400 Intake: Intake, IV Titration 100 Amount Meropenem 1 gm In Sodium 100 Chloride 0.9% 100 ml @ 33 .3 mls/hr IVPB Q8HR [facility] Rx#:[id number] Oral 400 Other: Voiding Method Toilet Toilet # Voids 2 2 - Labs CBC & Chem 7: 06/25/22 06:22 06/25/22 06:22 Labs: Microbiology - Last 24 Hours (Table) 06/21/22 17:48 Blood Culture - Preliminary Blood 06/21/22 12:13 Blood Culture - Preliminary Blood
[2022-06-25] MEDS: DILTIAZEM CD 120 MG CAP.ER.24H PO SCH (19:59)
--- NOTE | 2022-06-25 20:34 | P.PN ---
Subjective Progress Note Date: 06/25/22 Principal diagnosis: Hx lymphoma In f/u today pt seems a little confused, not answering specific questions appropriately, he reports that he does not feel well Objective - Vital Signs Vital signs: Vital Signs Temp 97.6 F 06/25/22 12:49 Pulse 81 06/25/22 12:49 Resp 18 06/25/22 12:49 BP 125/73 06/25/22 12:49 Pulse Ox 95 06/25/22 12:49 FiO2 Intake & Output 06/24/22 06/25/22 06/25/22 18:59 06:59 18:59 Intake Total 100 400 Balance 100 400 Weight 86.183 kg Intake: Intake, IV Titration 100 Amount Meropenem 1 gm In Sodium 100 Chloride 0.9% 100 ml @ 33 .3 mls/hr IVPB Q8HR [facility] Rx#:[id number] Oral 400 Other: Voiding Method Toilet Toilet # Voids 2 2 - Constitutional General appearance: Present: average body habitus, cooperative, no acute distress - EENT Eyes: Present: anicteric sclerae, EOMI ENT: Present: hearing grossly normal - Respiratory Respiratory: bilateral: CTA - Cardiovascular Heart sounds: normal: S1, S2 - Peripheral edema leg Peripheral Edema: bilateral: Trace - Integumentary Integumentary: Present: flushed - Musculoskeletal Musculoskeletal: Present: generalized weakness - Psychiatric Psychiatric: Present: appropriate affect - Labs CBC & Chem 7: 06/25/22 06:22 06/25/22 06:22 Labs: Abnormal Lab Results - Last 24 Hours (Table) 06/25/22 06/25/22 Range/Units 06:22 06:22 WBC 22.05 H (4.50-10.00) X 10*3/uL RBC 3.89 L (4.40-5.60) X 10*6/uL Hgb 11.6 L (13.0-17.0) g/dL Hct 37.1 L (39.6-50.0) % MCHC 31.3 L (32.0-37.0) g/dL Immature Gran # 0.09 H (0.00-0.04) X 10*3/uL Neutrophils # 19.48 H (1.80-7.70) X 10*3/uL Eosinophils # 0.37 H (0.04-0.35) X 10*3/uL Potassium 3.2 L (3.5-5.5) mmol/L Carbon Dioxide 27.9 H (20.0-27.5) mmol/L Calcium 8.0 L (8.7-10.3) mg/dL Total Protein 5.0 L (6.2-8.2) g/dL Albumin 2.6 L (3.8-4.9) g/dL Albumin/Globulin Ratio 1.14 L (1.60-3.17) g/dL Microbiology - Last 24 Hours (Table) 06/21/22 12:13 Blood Culture - Preliminary Blood 06/21/22 17:48 Blood Culture - Preliminary Blood Assessment and Plan (1) Abdominal pain Current Visit: Yes Status: Acute Priority: High Code(s): R10.9 - UNSPECIFIED ABDOMINAL PAIN SNOMED Code(s): 36182061 (2) Colitis Current Visit: Yes Status: Acute Priority: High Code(s): K52.9 - NONINFECTIVE GASTROENTERITIS AND COLITIS, UNSPECIFIED SNOMED Code(s): 61848810 (3) Iron deficiency anemia Current Visit: Yes Status: Acute Priority: Medium Code(s): D50.9 - IRON DEFICIENCY ANEMIA, UNSPECIFIED SNOMED Code(s): 68312628 (4) History of lymphoma Current Visit: No Status: Chronic Priority: Low Code(s): Z85.79 - PRSNL HX OF MALIG NEOPLM OF LYMPHOID, HEMATPOETC & REL TISS SNOMED Code(s): 840814795 Plan: Persistent fever -EBV, CMV and toxoplasmosis panels/IgM ordered -Immunoglobulin levels ordered -ID and Surgery following closely Abd pain, colitis -Colonoscopy did not identify any source of infection, biopsies neg for malignancy -Collaboration over the weekend, discuss possible exp laparoscopy for Hx lymphoma Iron def anemia -pt started on IV iron outpt. Reports that his symptoms (progressive weakness, chills, fever, incoherence) started the night of IV iron. Do not think his symptoms are a direct result of IV iron. He has had IV iron before without these symptoms. Not given due to persistent fevers, no infection source identified. Hgb has remained overall stable since admit, has not required any transfusion -Transfuse for Hgb<7 Hx lymphoma -possible exp lap -LDH ordered -Most recent PET 05/25/22-[facility] -He cont on f/u as directed by Dr. Gan
--- NOTE | 2022-06-25 21:06 | P.PN ---
Subjective Progress Note Date: 06/25/22 Principal diagnosis: Fever/colitis Patient is a 76-year-old male with a past medical history significant for lymphoma currently in remission and recently received an iron transfusion presenting to the hospital with symptoms of some mental status changes the patient also complaining of sore throat and lower abdominal discomfort, patient did have a CT abdominal pelvis suspicious for colitis involving the sigmoid region. Patient is status post colonoscopy on 06/19/2022 apparently normal- appearing colon, random biopsies were done On today's evaluation that is 06/25/2022, the patient is afebrile today, patient denies having any headache , the patient denies chest pain shortness of breath or cough, the patient has been coming of some nausea but no vomiting and abdo sundeep discomfort but no worsening and apparently did have some loose stools today Objective - Vital Signs Vital signs: Vital Signs Temp 98.7 F 06/25/22 07:29 Pulse 85 06/25/22 07:29 Resp 16 06/25/22 07:29 BP 143/80 06/25/22 07:29 Pulse Ox 96 06/25/22 08:05 FiO2 Intake & Output 06/24/22 06/25/22 06/25/22 18:59 06:59 18:59 Intake Total 100 400 Balance 100 400 Intake: Intake, IV Titration 100 Amount Meropenem 1 gm In Sodium 100 Chloride 0.9% 100 ml @ 33 .3 mls/hr IVPB Q8HR [facility] [place] Rx#:[id number] Oral 400 Other: Voiding Method Toilet Toilet # Voids 2 2 - Exam GENERAL DESCRIPTION: An elderly male lying in bed in no distress RESPIRATORY SYSTEM: Unlabored breathing , decreased breath sounds at bases HEART: S1 S2 regular rate and rhythm , ABDOMEN: Soft , mild distention and tenderness EXTREMITIES: No edema feet - Labs CBC & Chem 7: 06/25/22 06:22 06/25/22 06:22 Labs: Abnormal Lab Results - Last 24 Hours (Table) 06/25/22 06/25/22 Range/Units 06:22 06:22 WBC 22.05 H (4.50-10.00) X 10*3/uL RBC 3.89 L (4.40-5.60) X 10*6/uL Hgb 11.6 L (13.0-17.0) g/dL Hct 37.1 L (39.6-50.0) % MCHC 31.3 L (32.0-37.0) g/dL Immature Gran # 0.09 H (0.00-0.04) X 10*3/uL Neutrophils # 19.48 H (1.80-7.70) X 10*3/uL Eosinophils # 0.37 H (0.04-0.35) X 10*3/uL Potassium 3.2 L (3.5-5.5) mmol/L Carbon Dioxide 27.9 H (20.0-27.5) mmol/L Calcium 8.0 L (8.7-10.3) mg/dL Total Protein 5.0 L (6.2-8.2) g/dL Albumin 2.6 L (3.8-4.9) g/dL Albumin/Globulin Ratio 1.14 L (1.60-3.17) g/dL Microbiology - Last 24 Hours (Table) 06/21/22 12:13 Blood Culture - Preliminary Blood 06/21/22 17:48 Blood Culture - Preliminary Blood Assessment and Plan (1) Colitis Current Visit: Yes Status: Acute Priority: High Code(s): K52.9 - NONINFECTIVE GASTROENTERITIS AND COLITIS, UNSPECIFIED SNOMED Code(s): 26593931 (2) Febrile illness Current Visit: Yes Status: Acute Code(s): R50.9 - FEVER, UNSPECIFIED SNOMED Code(s): 862871517 Plan: 1patient presented to hospital with fever did have elevated white count with abdominal pain and constipation meeting criteria for sepsis source is likely colitis/diverticulitis and need to cover for enteric gram-negative both anaerobes and anaerobes, abnormality to the left kidney described on the CT however the patient did have a negative UA and no urinary symptoms 2-patient with a penicillin allergy that would limit the number of antibiotics safe to use 3-patient has been spiking fever and did have different area of the colon with inflammatory changes on the previous 2 CTs, CT completed yesterday did not show any multifocal colitis seen on the previous CT but it shows involvement of the ileum with concern for possible ischemia as the patient did have a history of atrial fibrillation versus possible recurrence of lymphoma detailed discussion with his oncologist and the patient will benefit from laparoscopic and biopsy, however surgery is recommended against laparoscopy at this point, patient will continue with IV fluids and meropenem, monitor clinical course closely Time with Patient: Less than 30
--- NOTE | 2022-06-25 22:34 | P.PN ---
Subjective Progress Note Date: 06/25/22 This is a pleasant 76-year-old male who presented to the emergency department with feelings of weakness along with fevers that have been ongoing since Saturday. Patient did follow with his oncologist Dr. Ochoa in the outpatient setting on May 04 and had blood work showing a mildly elevated white count of 12 and had been feeling generalized weakness and further labs were drawn including iron studies. reports patient was notified about the low iron recommending an infusion and went and had an IV iron transfusion on Saturday. Patient continued to have worsening symptoms throughout the weekend and persisted with fevers and persistent worsening weakness and encourage the patient to come to the ER for further evaluation. Patient is endorsing some mild abdominal discomfort with possible constipation and denies nausea or vomiting or diarrhea. Patient denies any recent sick contacts but reports this is been ongoing for the last 10 days. Patient reports he followed with his primary care provider Dr. 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 Patient did go to his rug touch up painter had some labs drawn along with a chest x-ray showing no acute process and had a chief payroll clerk on him which was normal with no abnormalities noted. 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 Patient is currently not receiving any active treatment for his lymphoma. Patient did have a chest x-ray here showing no acute cardiopulmonary process in the ER and also underwent a brain CT showing no acute intracranial process with nonspecific white matter changes secondary to chronic small vessel ischemic disease. Patient did have a CT abdomen/pelvis as well showing mild fat stranding changes and inflammation involving the left anterior abdominal fat near the descending colon to correlate for early colitis with no other findings within the abdomen or pelvis to correlate for an infectious or inflammatory process, some inflammation changes around the left kidney that could be secondary to above and to correlate with urinalysis there is no lymphadenopathy identified. Urinalysis was negative and all virology testings including influenza RSV Covid and strep were negative. Patient is having fevers and an elevated white count that was found to be 23.6 on admission. patient was admitted for leukocytosis and possible colitis with infectious disease and oncology on consult. Patient was started on meropenem and cefepime and did receive some fluid boluses in the ER. Lactic acid on admission was 1. 06/15/2022 Patient is seen and evaluated in follow-up this morning and has been afebrile and is being continued on antibiotics with infectious disease following along with oncology. Patient reports to feeling better and denies any abdominal pain and is tolerating diet with no reports of nausea or vomiting noted. Discussed with infectious disease as patient still continues to have an elevated white count of 19 recommend monitoring overnight with continued IV antibiotics. Encouraged increased activity as tolerated and encouraged oral intake. 06/16/2022 Patient is seen and evaluated today currently sitting up at the side of the bed reporting he is not feeling well and continues with nausea and was given some Zofran although continues to report nausea and some abdominal pain. Patient is having fevers and noted to have flush face with generalized malaise. Patient being followed by infectious disease along with oncology and maintained on IV antibiotics and ID recommending repeat CT abdomen is patient's abdomen is tender on palpation. Patient denies chest pain or shortness of breath. Awaiting a.m. labs as WBC remains elevated. 06/17/2022 Patient is seen and evaluated in follow-up this morning continuing to have fevers reporting he is having some nausea with dry heaves denies any diarrhea. Patient does report some diffuse abdominal pain occasionally and repeat CT abdomen with concerns of multifocal colitis. Patient is maintained on cefepime and Flagyl with infectious disease following closely. White count currently pending for this morning and oncology following as well as patient does have a history of mantle cell lymphoma and follows with Dr. Ochoa outpatient. Patient denies chest pain or shortness of breath currently and reports not much of an appetite given his continued nausea. 06/18/2022 Patient is seen in follow-up today sleeping although arousable. Patient is fatigued and continues to have fevers and continued with abdominal pain. Patient generally feels weak and unwell with multiple medical consultations following including infectious disease, oncology, no general surgery. Plan is to initiate bowel prep with possible colonoscopy with Dr. Parr tomorrow. Recommend holding Eliquis for the procedure. Patient is continued on IV cefepime and Flagyl and will continue for now. Patient continues to have low-grade temperatures reports to not eating very well as patient does have some nausea and no reports of vomiting. Patient reports constipation although has been having some bowel movements during admission. Patient denies diarrhea or any blood noted in the stool. 06/19/2022 Patient is seen in follow-up this morning is reporting generalized itchy rash noted throughout and is being monitored closely with infectious disease maintained on antibiotics in the form of cefepime and Flagyl. General surgery following with plans of colonoscopy today and has completed bowel prep. Patient is denying chest pain or shortness of breath, continues to report some diffuse abdominal pain and is afebrile today. No reports of nausea or vomiting and able to tolerate the GoLYTELY prep and is currently nothing by mouth. 06/20/2022 Patient is seen and evaluated in follow-up today currently maintained on IV antibiotics with infectious disease and general surgery following. Patient underwent colonoscopy yesterday which showed a normal-appearing colon and multiple biopsies were obtained. Patient antibiotics have been changed to aztreonam along with Flagyl and patient is continued on as needed Benadryl along with calamine lotion showing some improvements in the questionable ALLERGIC reaction of medications. Cefepime was discontinued yesterday. Patient reports oral intake is poor and has not felt very hungry and continues with some diffuse abdominal pain in the left lower quadrant. Patient denies any pain or frequency with urination. White count is trending down and today is 17.36 with a hemoglobin of 12.0. Potassium is 3.3 and will replace per protocol and will follow-up with repeat labs. Patient is currently afebrile and has been for the last 2 days and will discuss further with infectious disease along with general surgery about treatment plan moving forward. Currently awaiting biopsy report and oncology is following as well. Encouraged increase activity as tolerated as patient has been mostly lying in the bed. Would recommend getting up and walking around more frequently. 06/21/2022 Patient is seen and evaluated in follow-up this morning currently febrile bundled up in many blankets sleeping although arousable. Patient reports he is not feeling well and continues to have diffuse abdominal pain with not much of an appetite. Patient reports he gets up to the bathroom otherwise has not been up out of the bed since yesterday. Encouraged increase activity as tolerated. Patient is now having fevers again T-max 103.1 today and is maintained on IV antibiotics in the form of Flagyl and is Azactam with infectious disease following and we'll transition to IV meropenem with repeat blood cultures, sputum culture, follow-up chest x-ray, labs including pro-calcitonin and CRP. Patient reports he has not been eating much and encouraged oral intake. General surgery following as there were concerns for colitis patient underwent colonoscopy which was normal appearing with multiple biopsies obtained biopsies not indicative of any neoplasms. Patient denies chest pain or shortness of breath and reports has no nausea or vomiting although a decreased appetite and not really hungry. 06/22/2022 Patient is seen and evaluated in follow-up this morning continuing to have feve rs with infectious disease, oncology, general surgery following. Patient is maintained on IV meropenem and cultures thus far have been negative. Patient's white count is jumping up to 32 and half discuss with consultants about possible transfer to [facility] admission. Family and patient are agreeable with this and will attempt to initiate transfer. Patient does follow with Dr. sonido Vigil at [facility] as well as Dr. Gabriela glez here. Patient continues to have abdominal tenderness and no real appetite with some nausea but has not been vomiting. Gen. surgery following and have ordered repeat CT abdomen. 06/23 Patient seen and examined. Currently sitting comfortably in the bed, family at the bedside. No acute issues overnight. 06/24. Patient has been spiking fevers overnight. Complaining of chills during those episodes of fever . at the bedside 06/25/2022 Patient is seen in follow-up today currently afebrile and maintained on IV antibiotics with infectious disease along with general surgery and oncology following. Attempted transfer to [facility] for tertiary treatment as patient follows with oncologist there is well and was refused stating this appears to be more likely something infectious rather than recurrence of lymphoma. Patient with weakness and will have physical therapy evaluate the patient. Patient encouraged to increase activity as tolerated and continue with oral intake especially supplements as patient's oral intake has been poor. Patient is reporting some diarrhea and stool cultures along with C. diff was ordered and pending. Patient has been on a number of antibiotics with no significant improvement. White count is trending down and recommend follow-up labs. No reports of chest pain or shortness of breath noted. Patient denies nausea or vomiting. Review of systems: Constitutional: reports of fatigue, reports of no fevers today, or chills Cardiovascular: No reports of chest pain or palpitations Respiratory: No reports of shortness of breath or cough GI: no reports of nausea or vomiting, some diffuse abdominal left lower side pain and decreased oral intake : No reports of dysuria or retention Neurovascular: reports of generalized weakness, rash has improved All medications have been reviewed PHYSICAL EXAMINATION: GENERAL: The patient is awake, alert and oriented x2-3, Well developed, well nourished. Ill-appearing HEENT: Pupils are round and equally reacting to light. EOMI. no scleral icterus. No conjunctival pallor. Normocephalic, atraumatic. No pharyngeal erythema. No thyromegaly. CARDIOVASCULAR: S1 and S2 muffled PULMONARY: diminished breath sounds bilaterally with no wheezing or rhonchi noted. ABDOMEN: soft. mildly tender on exam of the left lower quadrant. non-distended, normoactive bowel sounds. No palpable organomegaly. MUSCULOSKELETAL: No joint swelling or deformity. EXTREMITIES: No cyanosis, clubbing, mild pedal edema mostly dependent. NEUROLOGICAL: Gross neurological examination did not reveal any focal deficits. SKIN: No rashes or lesions noted Assessment: Fever with leukocytosis, possibly secondary to acute pharyngitis, or possibility of early signs of colitis or ileitis as noted on CT Features of sepsis, present on admission, including fevers and leukocytosis, possible viral etiology with unknown etiology Generalized rash, likely ALLERGIC reaction to possibly cefepime, improved Sore throat, possible acute pharyngitis Diffuse abdominal pain and CT abdomen showing concerns for multifocal colitis Recent iron infusion with history of iron deficiency anemia History of mantle cell lymphoma History of atrial fibrillation, currently rate controlled History of basal cell carcinoma in 2013, in remission History of aortic aneurysm History bronchitis Lifelong nonsmoker GI prophylaxis DVT prophylaxis Full code Plan: Recommend to continue with current medications and management with infectious disease and oncology following. Patient is afebrile at the moment and denies abdominal pain. Patient is maintained on IV antibiotics along with gentle IV hydration and cultures thus far have been negative. virology testing has been negative and patient's white count is mildly trending down. Patient is reporting some loose stools and will obtain stool cultures and C. diff as patient has been on antibiotics throughout hospitalization with no significant improvement. General surgery Dr. Horne following and patient underwent colonoscopy which appeared normal and multiple biopsies were obtained and within normal limits, patient had repeat CT done with no new acute findings. Discussion of possible laparoscopic intervention was had between oncology, infectious disease and general surgery and not planning for any surgical interventions at this time and patient is agreeable Patient is tolerating oral intake although extremely fair and not much of an appetite. Encouraged nutritional supplements Oncology following as patient follows with Dr. Gan for history of for lymphoma. Patient also follows at the [facility] and attempted tertiary treatment center transfer although was refused by admitting physician as well as his oncologist as they feel this is not related to his lymphoma and more of an infectious process Further studies ordered per oncology and pending at this time Replace electrolytes per protocol and will follow-up with repeat labs in the a.m. Encouraged increased activity as tolerated as patient has been mostly lying in the bed during hospitalization. Patient with significant weakness and has had prolonged hospitalization and decline will consult PT/OT The impression and plan of care has been dictated by Kika Jorgensen, nurse practitioner as directed. Dr. Corin MD I have performed a history and examination and MDM of this patient, discussed the same with the dictator, and agree with the dictator's assessment and plan as written ,documented as a scribe. Based on total visit time, I have performed more than 50% of the visit. Any additional findings or plans will be noted. Objective - Vital Signs Vital signs: Vital Signs Temp 98.7 F 06/25/22 07:29 Pulse 85 06/25/22 07:29 Resp 16 06/25/22 07:29 BP 143/80 06/25/22 07:29 Pulse Ox 96 06/25/22 08:05 FiO2 Intake & Output 06/24/22 06/25/22 06/25/22 18:59 06:59 18:59 Intake Total 100 400 Balance 100 400 Intake: Intake, IV Titration 100 Amount Meropenem 1 gm In Sodium 100 Chloride 0.9% 100 ml @ 33 .3 mls/hr IVPB Q8HR [facility] Rx#:[id number] Oral 400 Other: Voiding Method Toilet Toilet # Voids 2 2 - Labs CBC & Chem 7: 06/25/22 06:22 06/25/22 06:22 Labs: Microbiology - Last 24 Hours (Table) 06/21/22 17:48 Blood Culture - Preliminary Blood 06/21/22 12:13 Blood Culture - Preliminary Blood
[2022-06-26 00:07] LABS: Immunoglobulin A 66.5 mg/dL (60.0-350.0)
[2022-06-26 04:03] LABS: EBV-EBNA(IgG) 5.5 AI; EBV-VCA (IgG) >8.0 AI; EBV-VCA (IgM) <0.2 AI
[2022-06-26 09:00] LABS: Basophils # (A) 0.08 X 10*3/uL (0.00-0.10); Basophils % (A) 0.4 %; Eosinophils # (A) 0.54 X 10*3/uL (0.04-0.35); Eosinophils % (A) 2.9 %; HCT 36.7 % (39.6-50.0); HGB 11.3 g/dL (13.0-17.0); Immature Grans, Automated 0.4 %; Lymphocytes # (A) 1.96 X 10*3/uL (0.90-5.00); Lymphocytes % (A) 10.6 %; MCH 29.6 pg (27.0-32.0); MCHC 30.8 g/dL (32.0-37.0); MCV 96.1 fL (80.0-97.0); Mean Platelet Volume 10.9 fL (9.5-12.2); Monocytes # (A) 0.41 X 10*3/uL (0.20-1.00); Monocytes % (A) 2.2 %; NRBC Per 100 WBC 0 /100 WBCS (0.0-0.0); Neutrophils # (A) 15.42 X 10*3/uL (1.80-7.70); Neutrophils % (A) 83.5 %; Platelet Count 443 X 10*3/uL (140-440); RBC 3.82 X 10*6/uL (4.40-5.60); RDW 14.2 % (11.5-14.5); WBC 18.49 X 10*3/uL (4.50-10.00)
[2022-06-26 09:13] LABS: African American GFR (CKD) 109.6 (60.0-200.0); Anion Gap 8.2 mmol/L (10.00-18.00); BUN/Creat Ratio 20.39 Ratio (12.00-20.00); Blood Urea Nitrogen 13.7 mg/dL (9.0-27.0); Calcium 8.1 mg/dL (8.7-10.3); Carbon Dioxide 31.7 mmol/L (20.0-27.5); Non-African American GFR(CKD) 94.5 (60.0-200.0); Potassium 3.7 mmol/L (3.5-5.5)
[2022-06-26] MEDS ORDERED: RX INFO: IV CONTRAST WAS GIVEN 1 EACH MISC MISCELLANE PRN (09:14)
[2022-06-26] MEDS: APIXABAN 5 MG TAB PO SCH (09:38)
[2022-06-26] MEDS: FLECAINIDE 50 MG TAB PO SCH (09:38)
[2022-06-26] MEDS: PANTOPRAZOLE 40 MG/10 ML VIAL IVP SCH (09:39)
[2022-06-26] MEDS: MEROPENEM 1 GM in SODIUM CHLORIDE 0.9% 100 ML IVPB SCH (09:39)
--- NOTE | 2022-06-26 11:38 | P.PN ---
Subjective Progress Note Date: 06/26/22 CHIEF COMPLAINT: Colitis HISTORY OF PRESENT ILLNESS: Patient is status post colonoscopy with random biops ies. Colonoscopy was normal appearing. Biopsy results benign colonic mucosa. Patient denies any abdominal pain. He does complain of a vague abdominal discomfort. He complains of sore throat. Denies any nausea or vomiting. Appetite still decreased. Afebrile. WBC 22-18. Positive EBV. Stool culture pending. Oncology was ordered a CT of the chest due to persistent fevers PHYSICAL EXAM: VITAL SIGNS: Reviewed. GENERAL: Well-developed in no acute distress. ABDOMEN: Soft. Nondistended. Nontender NEUROLOGIC: Alert and oriented ASSESSMENT: 1. Ileitis 2. Colitis with normal colonoscopy 3. History of lymphoma 4. Hypokalemia resolved PLAN: -Continue antibiotics -Continue supportive care -No plans for diagnostic laparoscopy -Continue regular diet -Follow up on stool culture Physician Assistant Refinery Operator note has been reviewed by physician. Signing provider agrees with the documented findings, assessment, and plan of care. Objective - Vital Signs Vital signs: Vital Signs Temp 98.2 F 06/26/22 07:19 Pulse 87 06/26/22 07:19 Resp 20 06/26/22 07:19 BP 144/75 06/26/22 07:19 Pulse Ox 96 06/26/22 07:31 FiO2 Intake & Output 06/25/22 06/26/22 06/26/22 18:59 06:59 18:59 Intake Total 200 350 Balance 200 350 Weight 86.183 kg Intake: Intake, IV Titration 200 Amount Meropenem 1 gm In Sodium 200 Chloride 0.9% 100 ml @ 33 .3 mls/hr IVPB Q8HR [facility] Rx#:[id number] Oral 350 Other: Voiding Method Toilet # Voids 2 # Bowel Movements 2 - Labs CBC & Chem 7: 06/26/22 05:49 06/26/22 05:49 Labs: Abnormal Lab Results - Last 24 Hours (Table) 06/25/22 06/25/22 06/25/22 Range/Units 06:22 20:31 20:31 WBC (4.50-10.00) X 10*3/uL RBC (4.40-5.60) X 10*6/uL Hgb (13.0-17.0) g/dL Hct (39.6-50.0) % MCHC (32.0-37.0) g/dL Plt Count (140-440) X 10*3/uL Immature Gran # (0.00-0.04) X 10*3/uL Neutrophils # (1.80-7.70) X 10*3/uL Eosinophils # (0.04-0.35) X 10*3/uL Potassium 3.2 L (3.5-5.5) mmol/L Carbon Dioxide 27.9 H (20.0-27.5) mmol/L Anion Gap (10.00-18.00) mmol/L BUN/Creatinine Ratio (12.00-20.00) Ratio Calcium 8.0 L (8.7-10.3) mg/dL Lactate Dehydrogenase 292 H (120-246) U/L Total Protein 5.0 L (6.2-8.2) g/dL Albumin 2.6 L (3.8-4.9) g/dL Albumin/Globulin Ratio 1.14 L (1.60-3.17) g/dL EBV Capsid Ag IgG Intrp POSITIVE A (NEGATIVE) EBV EA IgG Ab Interp Equivocal A (NEGATIVE) EBV Nuc Ag IgG Interp POSITIVE A (NEGATIVE) 06/26/22 06/26/22 Range/Units 05:49 05:49 WBC 18.49 H (4.50-10.00) X 10*3/uL RBC 3.82 L (4.40-5.60) X 10*6/uL Hgb 11.3 L (13.0-17.0) g/dL Hct 36.7 L (39.6-50.0) % MCHC 30.8 L (32.0-37.0) g/dL Plt Count 443 H (140-440) X 10*3/uL Immature Gran # 0.08 H (0.00-0.04) X 10*3/uL Neutrophils # 15.42 H (1.80-7.70) X 10*3/uL Eosinophils # 0.54 H (0.04-0.35) X 10*3/uL Potassium (3.5-5.5) mmol/L Carbon Dioxide 31.7 H (20.0-27.5) mmol/L Anion Gap 8.20 L (10.00-18.00) mmol/L BUN/Creatinine Ratio 20.39 H (12.00-20.00) Ratio Calcium 8.1 L (8.7-10.3) mg/dL Lactate Dehydrogenase (120-246) U/L Total Protein (6.2-8.2) g/dL Albumin (3.8-4.9) g/dL Albumin/Globulin Ratio (1.60-3.17) g/dL EBV Capsid Ag IgG Intrp (NEGATIVE) EBV EA IgG Ab Interp (NEGATIVE) EBV Nuc Ag IgG Interp (NEGATIVE) Microbiology - Last 24 Hours (Table) 06/21/22 17:48 Blood Culture - Preliminary Blood 06/21/22 12:13 Blood Culture - Preliminary Blood 06/25/22 13:50 Stool Culture - Preliminary Stool
--- NOTE | 2022-06-26 12:24 | CT ---
EXAMINATION TYPE: CT chest w con DATE OF EXAM: 06/26/2022 COMPARISON: 05/26/2021 HISTORY: 76-year-old male Persistent fever. TECHNIQUE: Contiguous axial scanning of the chest after the administration of 100ml mL of Isovue 300. Coronal/sagittal reconstructions performed. CT DLP: 552mGycm. Automatic exposure control utilized for a dose reduction. FINDINGS: The heart is normal size with trace anterior pericardial fluid measuring 6 mm thick. 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 Mild aneurysm ascending aorta at 4.0 cm. Mild ath erosclerotic arch calcifications with conventional vessel branching anatomy. No thoracic lymph adenopathy by CT size criteria. Minimal right apical pleural parenchymal scarring. There is minimal dependent atelectasis of the post erior lung bases and some strandy atelectasis inferior lingula. No consolidation or pleural effusion. Partially visualized bilateral renal cysts. Cholecystectomy clips in the upper abdomen. Bones: DISH lower thoracic spine. IMPRESSION: 1. No acute pulmonary process. Minimal right apical pleural parenchymal scarring and some scattered m inimal areas of atelectasis. 2. 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
--- NOTE | 2022-06-26 14:32 | P.PN ---
Subjective Progress Note Date: 06/26/22 Principal diagnosis: Hx lymphoma, fever NOS In f/u today pt not confused, he reports not feeling well in general, no fever for 48 hours, no abd pain, distension, N,V, D. He had a rash yesterday on his abd but, it is gone today. No cough or chest pain. Objective - Vital Signs Vital signs: Vital Signs Temp 98.2 F 06/26/22 07:19 Pulse 87 06/26/22 07:19 Resp 20 06/26/22 07:19 BP 144/75 06/26/22 07:19 Pulse Ox 96 06/26/22 07:31 FiO2 Intake & Output 06/25/22 06/26/22 06/26/22 18:59 06:59 18:59 Intake Total 200 350 Balance 200 350 Weight 86.183 kg Intake: Intake, IV Titration 200 Amount Meropenem 1 gm In Sodium 200 Chloride 0.9% 100 ml @ 33 .3 mls/hr IVPB Q8HR [facility] Rx#:[id number] Oral 350 Other: Voiding Method Toilet # Voids 2 # Bowel Movements 2 - Constitutional General appearance: Present: average body habitus, cooperative, no acute distress - EENT Eyes: Present: anicteric sclerae, EOMI ENT: Present: hearing grossly normal - Respiratory Respiratory: bilateral: CTA - Cardiovascular Rhythm: regular Heart sounds: normal: S1, S2 Abnormal Heart Sounds: Absent: systolic murmur, diastolic murmur, rub, S3 Gallop, S4 Gallop, click, other - Peripheral edema leg Peripheral Edema: bilateral: None - Gastrointestinal General gastrointestinal: Present: normal bowel sounds, soft. Absent: absent bowel sounds, decreased bowel sounds, distended, hepatomegaly, hyperactive bowel sounds, organomegaly, rigid, scaphoid, splenomegaly, tenderness, umbilical hernia, ventral hernia - Integumentary Integumentary: Present: pale - Neurologic Neurologic: Present: CNII-XII intact - Psychiatric Psychiatric: Present: A&O x's 3, appropriate affect - Labs CBC & Chem 7: 06/26/22 05:49 06/26/22 05:49 Labs: Abnormal Lab Results - Last 24 Hours (Table) 06/25/22 06/25/22 06/26/22 Range/Units 20:31 20:31 05:49 WBC 18.49 H (4.50-10.00) X 10*3/uL RBC 3.82 L (4.40-5.60) X 10*6/uL Hgb 11.3 L (13.0-17.0) g/dL Hct 36.7 L (39.6-50.0) % MCHC 30.8 L (32.0-37.0) g/dL Plt Count 443 H (140-440) X 10*3/uL Immature Gran # 0.08 H (0.00-0.04) X 10*3/uL Neutrophils # 15.42 H (1.80-7.70) X 10*3/uL Eosinophils # 0.54 H (0.04-0.35) X 10*3/uL Carbon Dioxide (20.0-27.5) mmol/L Anion Gap (10.00-18.00) mmol/L BUN/Creatinine Ratio (12.00-20.00) Ratio Calcium (8.7-10.3) mg/dL Lactate Dehydrogenase 292 H (120-246) U/L EBV Capsid Ag IgG Intrp POSITIVE A (NEGATIVE) EBV EA IgG Ab Interp Equivocal A (NEGATIVE) EBV Nuc Ag IgG Interp POSITIVE A (NEGATIVE) 06/26/22 Range/Units 05:49 WBC (4.50-10.00) X 10*3/uL RBC (4.40-5.60) X 10*6/uL Hgb (13.0-17.0) g/dL Hct (39.6-50.0) % MCHC (32.0-37.0) g/dL Plt Count (140-440) X 10*3/uL Immature Gran # (0.00-0.04) X 10*3/uL Neutrophils # (1.80-7.70) X 10*3/uL Eosinophils # (0.04-0.35) X 10*3/uL Carbon Dioxide 31.7 H (20.0-27.5) mmol/L Anion Gap 8.20 L (10.00-18.00) mmol/L BUN/Creatinine Ratio 20.39 H (12.00-20.00) Ratio Calcium 8.1 L (8.7-10.3) mg/dL Lactate Dehydrogenase (120-246) U/L EBV Capsid Ag IgG Intrp (NEGATIVE) EBV EA IgG Ab Interp (NEGATIVE) EBV Nuc Ag IgG Interp (NEGATIVE) Microbiology - Last 24 Hours (Table) 06/21/22 17:48 Blood Culture - Preliminary Blood 06/21/22 12:13 Blood Culture - Preliminary Blood 06/25/22 13:50 Stool Culture - Preliminary Stool - Imaging and Cardiology CT scan - chest: report reviewed Assessment and Plan (1) Abdominal pain Current Visit: Yes Status: Acute Priority: High Code(s): R10.9 - UNSPECIFIED ABDOMINAL PAIN SNOMED Code(s): 03684456 (2) Colitis Current Visit: Yes Status: Acute Priority: High Code(s): K52.9 - NONINFECTIVE GASTROENTERITIS AND COLITIS, UNSPECIFIED SNOMED Code(s): 07035078 (3) Iron deficiency anemia Current Visit: Yes Status: Acute Priority: Medium Code(s): D50.9 - IRON DEFICIENCY ANEMIA, UNSPECIFIED SNOMED Code(s): 63714208 (4) History of lymphoma Current Visit: No Status: Chronic Priority: Low Code(s): Z85.79 - PRSNL HX OF MALIG NEOPLM OF LYMPHOID, HEMATPOETC & REL TISS SNOMED Code(s): 567946610 Plan: Persistent fever -EBV, CMV and toxoplasmosis panels/IgM ordered-all neg for acute infection -Immunoglobulin levels are normal -CT chest done-no acute process -called and reviewed all the negative results with her -discussed case with IM FAMILY CONSUMER SCIENCE TEACHER. IM reviewed case with Surgeon. Abd pain, colitis -Colonoscopy did not identify any source of infection, biopsies neg for malignancy Iron def anemia -pt started on IV iron outpt. Reports that his symptoms (progressive weakness, chills, fever, incoherence) started the night of IV iron. Do not think his symptoms are a direct result of IV iron. He has had IV iron before without these symptoms. No additional doses given due to persistent fevers. No infection source identified so far. Hgb has remained overall stable since admit, has not required any transfusion -Transfuse for Hgb<7 Hx lymphoma -LDH slightly elevated-likely 2/2 inflammation -Most recent PET 05/25/22-ADRI[facility]N -He cont on f/u as directed by Dr. Gan Time with Patient: Greater than 30
[2022-06-26 14:56] VITALS: BP 114/68; PULSE 83; RESP 16; TEMP 98.9
[2022-06-26] MEDS ORDERED: ERTAPENEM 1 GM in SODIUM CHLORIDE 0.9% 50 ML IVPB STA (15:29)
--- NOTE | 2022-06-26 16:28 | P.PN ---
Subjective Progress Note Date: 06/26/22 Principal diagnosis: Fever/colitis Patient is a 76-year-old male with a past medical history significant for lymphoma currently in remission and recently received an iron transfusion presenting to the hospital with symptoms of some mental status changes the patient also complaining of sore throat and lower abdominal discomfort, patient did have a CT abdominal pelvis suspicious for colitis involving the sigmoid region. Patient is status post colonoscopy on 06/19/2022 apparently normal- appearing colon, random biopsies were done On today's evaluation that is 06/26/2022, the patient remains to be afebrile for more than 48 hours now, patient denies having any headache , the patient denies chest pain shortness of breath or cough, the patient has been coming of some nausea but no vomiting and denies any worsening abdominal discomfort and diarrhea has resolved Objective - Vital Signs Vital signs: Vital Signs Temp 98.2 F 06/26/22 07:19 Pulse 87 06/26/22 07:19 Resp 20 06/26/22 07:19 BP 144/75 06/26/22 07:19 Pulse Ox 96 06/26/22 07:31 FiO2 Intake & Output 06/25/22 06/26/22 06/26/22 18:59 06:59 18:59 Intake Total 200 350 Balance 200 350 Weight 86.183 kg Intake: Intake, IV Titration 200 Amount Meropenem 1 gm In Sodium 200 Chloride 0.9% 100 ml @ 33 .3 mls/hr IVPB Q8HR [facility] Rx#:[id number] Oral 350 Other: Voiding Method Toilet # Voids 2 # Bowel Movements 2 - Exam GENERAL DESCRIPTION: An elderly male lying in bed in no distress RESPIRATORY SYSTEM: Unlabored breathing , decreased breath sounds at bases HEART: S1 S2 regular rate and rhythm , ABDOMEN: Soft , mild distention and tenderness EXTREMITIES: No edema feet - Labs CBC & Chem 7: 06/26/22 05:49 06/26/22 05:49 Labs: Abnormal Lab Results - Last 24 Hours (Table) 06/25/22 06/25/22 06/26/22 Range/Units 20:31 20:31 05:49 WBC 18.49 H (4.50-10.00) X 10*3/uL RBC 3.82 L (4.40-5.60) X 10*6/uL Hgb 11.3 L (13.0-17.0) g/dL Hct 36.7 L (39.6-50.0) % MCHC 30.8 L (32.0-37.0) g/dL Plt Count 443 H (140-440) X 10*3/uL Immature Gran # 0.08 H (0.00-0.04) X 10*3/uL Neutrophils # 15.42 H (1.80-7.70) X 10*3/uL Eosinophils # 0.54 H (0.04-0.35) X 10*3/uL Carbon Dioxide (20.0-27.5) mmol/L Anion Gap (10.00-18.00) mmol/L BUN/Creatinine Ratio (12.00-20.00) Ratio Calcium (8.7-10.3) mg/dL Lactate Dehydrogenase 292 H (120-246) U/L EBV Capsid Ag IgG Intrp POSITIVE A (NEGATIVE) EBV EA IgG Ab Interp Equivocal A (NEGATIVE) EBV Nuc Ag IgG Interp POSITIVE A (NEGATIVE) 06/26/22 Range/Units 05:49 WBC (4.50-10.00) X 10*3/uL RBC (4.40-5.60) X 10*6/uL Hgb (13.0-17.0) g/dL Hct (39.6-50.0) % MCHC (32.0-37.0) g/dL Plt Count (140-440) X 10*3/uL Immature Gran # (0.00-0.04) X 10*3/uL Neutrophils # (1.80-7.70) X 10*3/uL Eosinophils # (0.04-0.35) X 10*3/uL Carbon Dioxide 31.7 H (20.0-27.5) mmol/L Anion Gap 8.20 L (10.00-18.00) mmol/L BUN/Creatinine Ratio 20.39 H (12.00-20.00) Ratio Calcium 8.1 L (8.7-10.3) mg/dL Lactate Dehydrogenase (120-246) U/L EBV Capsid Ag IgG Intrp (NEGATIVE) EBV EA IgG Ab Interp (NEGATIVE) EBV Nuc Ag IgG Interp (NEGATIVE) Microbiology - Last 24 Hours (Table) 06/21/22 17:48 Blood Culture - Preliminary Blood 06/21/22 12:13 Blood Culture - Preliminary Blood 06/25/22 13:50 Stool Culture - Preliminary Stool Assessment and Plan (1) Colitis Current Visit: Yes Status: Acute Priority: High Code(s): K52.9 - NONINFECTIVE GASTROENTERITIS AND COLITIS, UNSPECIFIED SNOMED Code(s): 65939390 (2) Febrile illness Current Visit: Yes Status: Acute Code(s): R50.9 - FEVER, UNSPECIFIED SNOMED Code(s): 791191470 Plan: 1patient presented to hospital with fever did have elevated white count with abdominal pain and constipation meeting criteria for sepsis source is likely colitis/diverticulitis and need to cover for enteric gram-negative both anaerobes and anaerobes, abnormality to the left kidney described on the CT however the patient did have a negative UA and no urinary symptoms 2-patient with a penicillin allergy that would limit the number of antibiotics safe to use 3-patient has been spiking fever and did have different area of the colon with inflammatory changes on the previous 2 CTs, CT completed yesterday did not show any multifocal colitis seen on the previous CT but it shows involvement of the ileum with concern for possible ischemia as the patient did have a history of atrial fibrillation versus possible recurrence of lymphoma detailed discussion with his oncologist and the patient will benefit from laparoscopic and biopsy, however surgery is recommended against laparoscopy at this point, patient fever has resolved and white count 18,000 to continue with meropenem if no surgical intervention planned for diagnosis and the patient remains to be febrile while white count continued to trend down while consider short course of Invanz on discharge and close observation follow-up, discuss with the CRIMINAL DEFENSE ATTORNEY for admitting team Time with Patient: Less than 30
[2022-06-27 05:10] LABS: Toxoplasma Antibody (IgG) <3.0 IU/mL (<7.2); Toxoplasma Antibody (IgM) <3.0 AU/mL (<8.0)
--- NOTE | 2022-06-28 05:56 | CDI ---
Documentation Clarification Form Date: 06/28/2022 5:33:30 AM From: Emely Steward Admit Date: 06/13/2022 11:39:00 PM Patient Name: Sreedhar Jackson Visit Number: [id number] Discharge Date: 06/26/2022 5:57:00 PM ATTENTION: The Clinical Documentation Specialists (CDI) and [facility] Coding Staff appreciate your assistance in clarifying documentation. Please respond to the clarification below the line at the bottom and electronically sign. The CDI & [facility] Coding staff will review the response and follow-up if needed. Please note: Queries are made part of the Legal Health Record. If you have any questions, please contact the author of this message via ITS. Dr. Heidi Coombs Per PN 06/25 "Features of sepsis, POA including fevers and leukocytosis, possible viral etiology with unknown etiology." Per ID 06/26 PN "Meets criteria for sepsis." Please clarify if patient had sepsis or was sepsis ruled out. History/Risk Factors: Fevers, Leukocytosis, colitis Clinical Indicators: WBC 23.6 Lactic acid: 1.0 Blood cultures: No growth Vitals signs: 99.1 F, 108 bpm, 18, 122/72, 96 RA Treatment: IV antibiotics ID Consult: Meets criteria for sepsis Antibiotics: Zithromax, Cefepime, Vancomycin Does patient have sepsis or was it ruled out: [ ] Sepsis, present on admission [ ] Sepsis ruled out [ ] Other, please specify [ ] Unable to determine SIRS Criteria: 2 or more of the following may indicate SIRS Temperature < 96.8F (36C) or > 101.0F (38.3C) Heart Rate > 90 bpm Respiratory Rate > 20 breaths/min or PaCO2 < 32 mmHg White Blood Cell Count > 12,000 or < 4,000 cells/mm3 or > 10% bands query not necessory MTDD
--- NOTE | 2022-06-28 06:54 | P.DS ---
Providers Date of admission: 06/13/22 23:39 Expected date of discharge: 06/26/22 Attending physician: Judy Rivera Consults: 06/13/22 23:54 Consult Physician Routine Consulting Provider: Chris Gan Consult Reason/Comments: history of lymphoma, recent iron transfusion Do you want consulting provider notified?: Yes 06/13/22 23:55 Consult Physician Routine Consulting Provider: Brandy Coon Consult Reason/Comments: leukocytosis, recent iron transfusion Do you want consulting provider notified?: Yes 06/14/22 09:31 Consult Physician Urgent Consulting Provider: Miley Monaco Consult Reason/Comments: colitis, leukocytosis, febrile, abd pain Do you want consulting provider notified?: Yes 06/17/22 12:51 Consult Physician Urgent Consulting Provider: Primitivo Horne Consult Reason/Comments: diverticulitis, leukocytosis, abdominal pain Do you want consulting provider notified?: Yes Primary care physician: Hemanth Meza [facility] Hospital Course: Final diagnosis Fever with leukocytosis, sepsis, present on admission likely secondary to infectious colitis or ileitis as noted on CT Acute pharyngitis, present on admission Generalized rash, likely ALLERGIC reaction to possibly cefepime, improved Diffuse abdominal pain and CT abdomen showing concerns for multifocal colitis Recent iron infusion with history of iron deficiency anemia History of mantle cell lymphoma History of atrial fibrillation, currently rate controlled History of basal cell carcinoma in 2012, in remission History of aortic aneurysm History bronchitis Lifelong nonsmoker GI prophylaxis DVT prophylaxis Full code Discharge disposition Patient is being discharged in a stable condition with guarded prognosis to home. Patient will follow-up with Dr. Meza in the outpatient setting upon discharge. Patient is to continue with IV Invanz daily for the next 10 days and close outpatient follow-up with infectious disease Dr. Coon as scheduled. Total time taken is greater than 35 minutes. Hospital course This is a 76-year-old male who was recently admitted with fevers and leukocytosis with sepsis with some abdominal pain concerns for infectious etiology of colitis versus diverticulitis is noted on CT. Patient underwent colonoscopy with normal findings and biopsies were normal. Patient continued to have elevated white count with fevers and also experienced some ALLERGIC reactions to cefepime that was discontinued with infectious disease following closely. Patient was maintained on a number of antibiotics with no significant improvement. All cultures have been negative. Attempted to transfer patient to [facility] for further evaluation although was refused reporting they felt it was not likely due to his lymphoma or recurrence. Patient did have recent PET scan in May 25 that was negative for any new findings. Patient does follow with Dr. Gan as well in the outpatient setting for oncology with oncology following during admission. Patient showing some improvement in fevers and feeling better extremely anxious to go home. Patient has been cleared by consultations and encouraged to follow-up with primary care provider as well as oncology in the outpatient setting. Please refer to other consultation notes for further HPI. also mentioned she would most likely be bringing him to a tertiary care center emergency room tomorrow morning. Currently no reports of chest pain, shortness of breath, or palpitations. Patient is afebrile. No reports of nausea or vomiting and patient is tolerating diet. Patient will be discharged home with guarded prognosis. Physical exam: Gen: This is a 76-year-old male who is awake, alert and oriented 3, well- developed, well-nourished HEENT: Head is atraumatic, normocephalic. Pupils equal, round. Sclerae is ani cteric. NECK: Supple. No JVD. No lymphadenopathy. No thyromegaly. LUNGS: Clear to auscultation. No wheezes or rhonchi. No intercostal retractions. HEART: Regular rate and rhythm. No murmur. ABDOMEN: Soft. Bowel sounds are present. No masses. No tenderness. EXTREMITIES: No pedal edema. No calf tenderness. NEUROLOGICAL: Patient is awake, alert and oriented x3. Cranial nerves 2 through 12 are grossly intact. Please refer to medication reconciliation sheet for a list of medications. The impression and plan of care has been dictated by Kika Jorgensen, Nurse Practitioner as directed. Dr. Corin MD I have performed a history and examination and MDM of this patient, discussed the same with the dictator, and agree with the dictator's assessment and plan as written ,documented as a scribe. Based on total visit time, I have performed more than 50% of the visit. Patient Condition at Discharge: Fair Plan - Discharge Summary Discharge Rx Participant: No New Discharge Prescriptions: New Ertapenem [INVanz] 1 gm IVPB ONCE 10 Days #10 each Acetaminophen Tab [Tylenol] 650 mg PO Q6HR PRN tab PRN Reason: Mild Pain Or Fever > 100.5 Continue Apixaban [Eliquis] 5 mg PO BID #60 tab Flecainide Acetate [Tambocor] 100 mg PO BID dilTIAZem HCL [Cartia Xt] 120 mg PO HS ALPRAZolam [Xanax] 0.25 mg PO BID PRN PRN Reason: Anxiety Albuterol Sulfate [Ventolin HFA] 2 puff INHALATION RT-Q6H PRN PRN Reason: Shortness Of Breath Discontinued Meloxicam [Mobic] 7.5 mg PO DAILY Azithromycin [Zithromax] 500 mg PO DAILY Discharge Medication List Apixaban [Eliquis] 5 mg PO BID #60 tab 03/05/19 [Rx] Flecainide Acetate [Tambocor] 100 mg PO BID 12/17/19 [History] ALPRAZolam [Xanax] 0.25 mg PO BID PRN 06/13/22 [History] Albuterol Sulfate [Ventolin HFA] 2 puff INHALATION RT-Q6H PRN 06/13/22 [History] dilTIAZem HCL [Cartia Xt] 120 mg PO HS 06/13/22 [History] Acetaminophen Tab [Tylenol] 650 mg PO Q6HR PRN tab 06/26/22 [Rx] Ertapenem [INVanz] 1 gm IVPB ONCE 10 Days #10 each 06/26/22 [Rx] Follow up Appointment(s)/Referral(s): Hemanth Meza MD [Primary Care Provider] - 06/29/22 1:15 pm (Please bring all medications to follow up per the doctor's office) [facility] [NON-STAFF] - 1 Week Chris Gan MD [STAFF PHYSICIAN] - 07/03/22 8:30 am ([address] [place] [address]) Patient Instructions/Handouts: Colitis (ED) Activity/Diet/Wound Care/Special Instructions: Activity Limited until follow-up Follow-up with oncology at [facility] as well as Dr. Gan Continue taking medications as prescribed Monitor closely for fevers and treat with Tylenol Encouraged oral intake Discharge Disposition: HOME SELF-CARE
== END 2022-06-26 17:57 | disposition home or self-care (01) | DRG 872 ==
LOC: EC 19:45 → 4SSUR 23:39 → 5NMEDONC 23:57
PROVIDERS: ADMIT Hospitalist; ATTEND Hospitalist
PROC: 0DBE8ZX Excision of Large Intestine, Via Natural or Artificial Opening Endoscopic, Diagnostic (ICD-10-PCS; principal; 2022-06-19 11:45)
PROC: 05HC33Z Insertion of Infusion Device into Left Basilic Vein, Percutaneous Approach (ICD-10-PCS; 2022-06-26 08:30)
DX: A41.9 Sepsis, unspecified organism (principal); Z94.81 Bone marrow transplant status; K52.9 Noninfective gastroenteritis and colitis, unspecified; D50.9 Iron deficiency anemia, unspecified; Z85.72 Personal history of non-Hodgkin lymphomas; Z85.828 Personal history of other malignant neoplasm of skin; I48.91 Unspecified atrial fibrillation; Z79.01 Long term (current) use of anticoagulants; M19.90 Unspecified osteoarthritis, unspecified site; Z71.3 Dietary counseling and surveillance; Z88.0 Allergy status to penicillin; Z28.310 Unvaccinated for COVID-19; Z28.21 Immunization not carried out because of patient refusal; Z96.651 Presence of right artificial knee joint; E87.6 Hypokalemia; Z79.1 Long term (current) use of non-steroidal anti-inflammatories (NSAID); Z79.899 Other long term (current) drug therapy; Z86.79 Personal history of other diseases of the circulatory system
CPT/HCPCS: 36410; 36415; 45380; 70450; 71045; 71046; 71260; 74177; 76937; 80048; 80053; 81001; 81003; 82565; 82784; 83010; 83605; 83615; 83735; 84145; 85025; 85384; 85610; 85730; 86140; 86645; 86663; 86664; 86665; 86777; 86778; 87045; 87046; 87070; 87103; 87205; 87635; 87636; 87651; 88305; 93005; 93306; 94640; 94760; 96361; 96365; 96368; 99285

== ENCOUNTER → 2022-12-06 | Outpatient (CLI) | payer MEDICARE ==
[2022-12-06 14:23] VITALS: BP 128/82; PULSE 72; RESP 15; TEMP 98
--- NOTE | 2022-12-06 14:36 | P.PAINPG ---
Objective - Vital Signs Vital signs: Intake & Output 12/05/22 12/06/22 12/06/22 18:59 06:59 18:59 Weight 99.79 kg PQRS Measure Charge Sheet Comment: HISTORY OF PRESENT ILLNESS: 77 yr old male w at side as a referral from Dr Jackson presents today w severe and chronic LBP since Aug 2022 secondary to DDD, spondylosis and facet arthropathy without myelopathy for evaluation. Pt states pain level is provoked at 8 /10 in intensity, constant, localized in the mid to lower lumbar spine, dull/ achy in character w shooting pain towards the L hamstring. Pain is provoked by standing/ laying supine for periods of 20 min or more. Pain is alleviated by PT x 3 wks which he is currently in, medications (Tyl), repositioning and rest. Oswestry axial pain score at 30. PMH: OA, aFib, Lymphoma, Basal Cell CA, AA PSH: Hernia Repair, R Knee Replacement, Skin CA Resection, Bone Marrow Transplant SH: Hx of tobacco use, Occasional ETOH use, No illicit drug use. and lives w spouse. Uses Nebulizer. Lives independently. FH: Mo- Ruptured AA/ at age 76. Fa- No Reported History/ at age 89. Bro- CA. Son(s) x2- No Reported History All: See list Meds: See list REVIEW OF ORGAN SYSTEMS: CONSTITUTIONAL: No fevers or chills. No recent weight loss. NEUROLOGICAL: + numbness and tingling along the distal extremities. No seizure disorders or headaches. MUSCULOSKELETAL: + pain PSYCHIATRIC: Denies current depression or suicidal thoughts. Physical Examinations : Constitutional : Cooperative , not in acute distress . Neurologic : Cranial nerve II to XII intact. No focal neurological deficits. Psychiatric : alert & oriented x 3. Matching mood & appropriate affect. Judgment & insight intact. Musculoskeletal : Cervical Spine Motor strength in the deltoid and biceps: Normal right side. Normal Left side Motor strength biceps and the wrist extensors: Normal right side . Normal left side Motor strength in the triceps muscle: Normal right side. Normal left side Deep tendon reflexes: Normal at the biceps. Normal at Brachioradialis. Normal at triceps Vertebral body tenderness to deep palpation over Cervical facet loading test: positive bilaterally Spurling test: positive bilaterally Neck distraction test: positive bilaterally Suhas sign: positive bilaterally Lumbar spine Motor strength lower extremities ,thigh and legs 5/5 Right side , 5/5 Left side Deep tendon reflexes : Normal Knee Jerk. Normal Ankle Jerk Vertebral body tenderness over L4 Aburto Test positive Lumbar facet Loading Test: positive Right / positive Left Range of motion of the lumbar spine Flexion 30 degrees, extension 10 degrees Straight Leg Raise test: Left/ Right positive at 35 degrees Rupali test: positive right / positive left. Severe tenderness over the Sacroiliac joint on the Right / Left sides Gaenslen test: positive bilaterally Seated flexion test: positive bilaterally. Sacral spine : Severe tenderness over the Sacroiliac joint: right side / left side Range of motion: Flexion of the lumbar spine <60 degrees Range of motion: Extension of the lumbar spine <20 degrees Gaenslen's Test positive Elton's Test positive Rupali test: positive right side / left side Thigh Thrust Test Sacral Thrust Test Imaging: MRI noncontrast of the lumbar spine from 11/09/22 reviewed Assessment/ Plan : Lumbar retrolisthesis Recommendation of PITO L paramedian L4-L5 #1. May need a series of injections for optimal pain relief. Risks, benefits of procedure discussed and patient verbalized understanding. Admits to anti- coagulant use or medical history of diabetes. Protocol for discontinuation/ continuation of medications rena procedure discussed. Minimal anesthesia provided, if clinically indicated, consisting of Versed and Fentanyl. All questions answered. I have spent greater than 30 minutes on patient care today. Dr Gupta was available by phone for the evaluation of this patient. The time was used to review the medical records including relevant urine studies and Prescription history (MAPs), review of the available imaging, evaluation and examination of the patient, coordination of care with the medical staff and if applicable referring physicians, as well as creation of the medical record PQRS Narrative: Smoking Status Never smoker Home Medications: Ambulatory Orders Apixaban [Eliquis] 5 mg PO BID #60 tab 03/05/19 Flecainide Acetate [Tambocor] 100 mg PO BID 12/17/19 ALPRAZolam [Xanax] 0.25 mg PO BID PRN 06/13/22 Albuterol Sulfate [Ventolin HFA] 2 puff INHALATION RT-Q6H PRN 06/13/22 dilTIAZem HCL [Cartia Xt] 120 mg PO HS 06/13/22 Acetaminophen Tab [Tylenol] 650 mg PO Q6HR PRN tab 05/02/23 Ertapenem [INVanz] 1 gm IVPB ONCE 10 Days #10 each 06/26/22 Controlled Substance Measures - Controlled Substance Measures Is patient prescribed a controlled substance at discharge?: No
== END ==
LOC: PNWHC3 13:43
PROVIDERS: ATTEND Specialist
DX: M51.36 Other intervertebral disc degeneration, lumbar region (principal); M19.90 Unspecified osteoarthritis, unspecified site; I48.91 Unspecified atrial fibrillation; M43.16 Spondylolisthesis, lumbar region; E85.89 Other amyloidosis; Z85.819 Personal history of malignant neoplasm of unspecified site of lip, oral cavity, and pharynx; Z85.72 Personal history of non-Hodgkin lymphomas; Z87.891 Personal history of nicotine dependence; Z79.01 Long term (current) use of anticoagulants; Z88.0 Allergy status to penicillin; Z88.8 Allergy status to other drugs, medicaments and biological substances
CPT/HCPCS: 99211

== ENCOUNTER 2023-01-03 09:26 | Day surgery (SDC) | payer MEDICARE ==
[~2023-01-03 09:26] MED LIST changes: -DEXAMETHASONE SOD PHOSPHATE 4 MG/ML 1 ML VIAL IV ONE; -FAMOTIDINE 20 MG/2 ML VIAL IV PRN; -HYDROmorphone 0.5 MG/0.5 ML SYRINGE IVP PRN; -LIDOCAINE 1% (10MG/ML) FOR IV START INTRADERMA PRN; -METOCLOPRAMIDE 5 MG/ML 2 ML VIAL IVP PRN; -ONDANSETRON 4 MG/2 ML VIAL IVP ONE
[2023-01-03 09:46] VITALS: TEMP 97.1
[2023-01-03] MEDS ORDERED: methylPREDNISolone ACETATE 40 MG/ML 1 ML VIAL ONE (10:08)
[2023-01-03] MEDS ORDERED: IOPAMIDOL M200 10 ML VIAL ONE (10:08)
--- NOTE | 2023-01-03 10:14 | P.PCN ---
Date of Procedure: 01/03/23 Procedure(s) Performed: PREOPERATIVE DIAGNOSIS: 1- Lumbar Degenerative Disc Diseases 2-Lumbar spondylosis with Facet arthropathy without myelopathy. POSTOPERATIVE DIAGNOSIS: 1-lumbar degenerative disc disease. 2-lumbar spondylosis with facet arthropathy without myelopathy. PROCEDURE 1. Lumbar epidural steroid injection under fluoroscopic guidance at the L4-5 level. (Fluoroscopy imaging was available in radiology department) 2. Lumbar epidurogram. ANESTHESIA: Lidocaine 1% 3 and then only. EBL: Minimal PROCEDURE INDICATION: The patient with low back pain and radiculitis symptoms unresponsive to conservative treatment. Fluoroscopy was used to optimize visualization of the needle placement and to maximize safety. PROCEDURE DESCRIPTION / TECHNIQUE: The patient was seen and identified in the preoperative area. Risks, benefits, complications including but not limited to infections ,bleeding ,allergic reaction to the medications ,nerve damage and not complete pain releife , and alternatives were discussed with the patient. The patient agreed to proceed with the procedure and signed the consent, and vital signs were stable. Patient was taken to the OR and time out was completed. The patient was placed in the prone position on procedure table and a pillow was placed under the abdomen to reduce lumbar lordosis. The lumbosacral area was prepped and draped in the usual sterile fashion.ere closely monitored during the procedure. Vital signs was monitered during the entire procedure. Using anterior-posterior fluoroscopy, the L4-5 interlaminar space was identified and the skin over this site was marked and then infiltrated with 1% lidocaine subcutaneously. Subsequently, a 20-gauge Tuohy epidural needle was inserted ( left paramedial ) and advanced toward the epidural space using the ``Loss of resistance technique and guided by AP and lateral fluoroscopy. The correct needle position in the epidural space was verified with the injection of 2 mL of the water soluble contrast dye Isovue 200 contrast and observing an excellent epidurogram with the epidural spread of the dye, after negative aspiration for blood and CSF and in the absence of paresthesias. Again after negative aspiration, a 6 ml mixture containing 40 mg of Depo-medrol ( Preservetive Free ), and 2 ml of preservative free Normal Saline, and 2 ml of preservative free lidocaine 1% solution was injected and a washout of epidurogram was seen. Needle was withdrawn intact, skin was cleansed, and bandages were applied. COMPLICATIONS: None DISPOSITION / PLANS: The patient was placed in a supine position and transferred to the recovery area in a stable condition for observation. There was no evidence of lower extremity motor or sensory deficit after the procedure. Patient was discharged from the recovery room after meeting discharge criteria. Home discharge instructions were given to the patient by the staff. The patient was reexamined prior to discharge. The patient will schedule a follow up in the clinic in 2-4 weeks. Shola last does taken more than 72 hours ago.
--- NOTE | 2023-01-03 10:31 | FL ---
EXAMINATION TYPE: FL guided pain mgmt statistic DATE OF EXAM: 01/03/2023 HISTORY: Fluoroscopy time Total dose area product (DAP) in uGy*m?, mGy*cm? (or similar): 0.27483 IMPRESSION: 1. Fluoroscopy time.
[2023-01-03 10:40] VITALS: RESP 20
[2023-01-03 11:08] VITALS: BP 139/86; PULSE 66
== END 2023-01-03 10:44 | disposition home or self-care (01) ==
LOC: ORPAIN 09:26
PROVIDERS: ATTEND Specialist
DX: M51.16 Intervertebral disc disorders with radiculopathy, lumbar region (principal); M47.26 Other spondylosis with radiculopathy, lumbar region; Z88.0 Allergy status to penicillin; Z88.8 Allergy status to other drugs, medicaments and biological substances; Z91.018 Allergy to other foods; Z79.01 Long term (current) use of anticoagulants
CPT/HCPCS: 62323; J1030; Q9966

== ENCOUNTER → 2023-01-15 | Outpatient (CLI) | payer MEDICARE ==
--- NOTE | 2023-01-18 08:58 | MR ---
EXAMINATION TYPE: MR brain wo/w con DATE OF EXAM: 01/15/2023 8:15 PM CLINICAL INDICATION:Male, 77 years old with history of C83.18; PHH, Mantle cell lymphoma. Poor memory COMPARISON: CT brain 06/13/2022. TECHNIQUE: Multi planar, multi sequence imaging was performed through the brain including: T1, T2, In version recovery, susceptibility weighted imaging and gradient echo imaging and Diffusion weighted im aging. The patient was then given intravenous contrast and multi planar, T1 fat-saturation images wer e obtained. IV Contrast: 10.5 cc Gadavist FINDINGS: CSF attenuating area along the left frontal lobe measuring 3.1 x 1.37 m is unchanged likely representing arachnoid cyst. The galicia-white junctions, ventricular system, basal cisterns appear unr emarkable. Diffusion-weighted imaging shows no evidence of restricted diffusion to suggest acute/sub acute infarct. Intracranial arterial flow voids are maintained. Midline structures show no abnormalit y. Scattered foci of high T2 signal intensity are seen within the periventricular white matter. The s usceptibility weighted images do not reveal any evidence for micro-hemorrhage. After administration o f gadolinium, no abnormal enhancement is seen. The bone marrow signal is within normal limits. Paranasal sinuses and mastoid air cells: Mucosal thickening most pronounced in the right maxillary si nus. Visualized orbits: Orbital contents are intact. IMPRESSION: 1. No evidence of intracranial mass, acute/subacute infarct, or abnormal enhancement. 2. Nonspecific white matter changes, likely related to small vessel ischemic disease. 3. CSF attenuating area along the left frontal lobe measuring 3.1 x 1.37 m is unchanged likely repres enting arachnoid cyst.
== END | disposition home or self-care (01) ==
LOC: RADMRIMAIN 19:13
PROVIDERS: ATTEND Internal Medicine Hematology & Oncology
DX: G93.89 Other specified disorders of brain (principal); C83.18 Mantle cell lymphoma, lymph nodes of multiple sites
CPT/HCPCS: 70553; A9585

== ENCOUNTER → 2023-02-07 | Outpatient (CLI) | payer MEDICARE ==
[2023-02-07 10:54] VITALS: BP 136/81; PULSE 75; RESP 16; TEMP 97.6
--- NOTE | 2023-02-07 15:06 | P.PAINPG ---
PQRS Measure Charge Sheet Comment: HISTORY OF PRESENT ILLNESS: 77 yr old male w at side presents today w severe and chronic LBP since Aug 2022 secondary to DDD, spondylosis and facet arthropathy without myelopathy for evaluation s/p PITO L4-L5 #1. Pt states he experienced 50% pain relief x 3 wks s/p procedure. Pt states pain level is provoked at 8 /10 in intensity, constant, localized in the mid to lower lumbar spine, predominantly axial, dull/ achy in character w occasional shooting pain towards the L glute. Pain is provoked by standing/ laying supine for periods of 20 min or more. Pain is alleviated by PT x 8 wks which he is currently in, medications, heat, repositioning and rest. Oswestry axial pain score at 29. Interventional procedures include L4-L5 x1 Medications include Tyl REVIEW OF ORGAN SYSTEMS: CONSTITUTIONAL: No fevers or chills. No recent weight loss. NEUROLOGICAL: + numbness and tingling along the distal extremities. No seizure disorders or headaches. MUSCULOSKELETAL: + pain PSYCHIATRIC: Denies current depression or suicidal thoughts. Physical Examinations : Constitutional : Cooperative , not in acute distress . Neurologic : Cranial nerve II to XII intact. No focal neurological deficits. Psychiatric : alert & oriented x 3. Matching mood & appropriate affect. Judgment & insight intact. Musculoskeletal : Cervical Spine Motor strength in the deltoid and biceps: Normal right side. Normal Left side Motor strength biceps and the wrist extensors: Normal right side . Normal left side Motor strength in the triceps muscle: Normal right side. Normal left side Deep tendon reflexes: Normal at the biceps. Normal at Brachioradialis. Normal at triceps Vertebral body tenderness to deep palpation over Cervical facet loading test: positive bilaterally Spurling test: positive bilaterally Neck distraction test: positive bilaterally Suhas sign: positive bilaterally Lumbar spine Motor strength lower extremities ,thigh and legs 5/5 Right side , 5/5 Left side Deep tendon reflexes : Normal Knee Jerk. Normal Ankle Jerk Vertebral body tenderness over L4 Aburto Test positive Lumbar facet Loading Test: positive Right / positive Left Range of motion of the lumbar spine Flexion 30 degrees, extension 10 degrees Straight Leg Raise test: Left/ Right positive at 35 degrees Rupali test: positive right / positive left. Severe tenderness over the Sacroiliac joint on the Right / Left sides Gaenslen test: positive bilaterally Seated flexion test: positive bilaterally. Sacral spine : Severe tenderness over the Sacroiliac joint: right side / left side Range of motion: Flexion of the lumbar spine <60 degrees Range of motion: Extension of the lum bar spine <20 degrees Gaenslen's Test positive Elton's Test positive Rupali test: positive right side / left side Thigh Thrust Test Sacral Thrust Test Imaging: MRI noncontrast of the lumbar spine from 11/09/22 reviewed Assessment/ Plan : Lumbar retrolisthesis Recommendation of L TFESI L4-L5 #2. May need a series of injections for optimal pain relief. Risks, benefits of procedure discussed and patient verbalized understanding. Admits to anti- coagulant use or medical history of diabetes. Protocol for discontinuation/ continuation of medications rena procedure discussed. All questions answered. I have spent greater than 30 minutes on patient care today. Dr Gupta was available by phone for the evaluation of this patient. The time was used to review the medical records including relevant urine studies and Prescription history (MAPs), review of the available imaging, evaluation and examination of the patient, coordination of care with the medical staff and if applicable referring physicians, as well as creation of the medical record - Pain Location Bilateral Lower Back Non-Pharmacological Interventions: Elevation, Heat, Inactivity, Physical Therapy, Position/Reposition, Sitting Pharmacological Interventions: Epidural, PRN Medication, Topical Medication PQRS Narrative: Smoking Status Never smoker Home Medications: Ambulatory Orders Apixaban [Eliquis] 5 mg PO BID #60 tab 03/05/19 Flecainide Acetate [Tambocor] 100 mg PO BID 12/17/19 ALPRAZolam [Xanax] 0.25 mg PO BID PRN 06/13/22 Albuterol Sulfate [Ventolin HFA] 2 puff INHALATION RT-Q6H PRN 06/13/22 dilTIAZem HCL [Cartia Xt] 120 mg PO HS 06/13/22 Acetaminophen Tab [Tylenol] 650 mg PO Q6HR PRN tab 06/26/22 Unk Tumeric 1 tab PO DAILY 01/01/23 Unk Glucosamine 1 tab PO DAILY 01/01/23 Unk Kineret Inj 1 injection SQ DIRECTED 01/01/23 Unk Magnesium 1 tab PO DAILY 01/01/23 Unk Vitamin D With Calcium 1 tab PO DAILY 01/01/23 Unk Vitamin D3 1 tab PO DAILY 01/01/23 predniSONE 2 mg PO DAILY 01/01/23 diazePAM [Valium] 5 mg PO DAILY PRN 1 Days #2 tab 02/07/23 Controlled Substance Measures - Controlled Substance Measures Is patient prescribed a controlled substance at discharge?: Yes When asked, does pt state using other controlled substances?: No If prescribed controlled substance>3 days was MAPS reviewed?: Prescribed <3 Days
== END ==
LOC: PNWHC3 10:11
PROVIDERS: ATTEND Specialist
DX: M43.16 Spondylolisthesis, lumbar region (principal); Z88.0 Allergy status to penicillin; Z88.8 Allergy status to other drugs, medicaments and biological substances
CPT/HCPCS: 99211

== ENCOUNTER → 2023-05-03 | Outpatient (CLI) | payer MEDICARE ==
[2023-05-03 18:19] LABS: NT-Pro-B-Type Natriuretic Pept 188 pg/mL (0-450)
[2023-05-03 18:40] LABS: Blood Urea Nitrogen 30.6 mg/dL (9.0-27.0); Carbon Dioxide 25.5 mmol/L (21.6-31.8); Chloride 103 mmol/L (96-109); Potassium 4.8 mmol/L (3.5-5.5); Sodium 140 mmol/L (135-145)
== END | disposition home or self-care (01) ==
LOC: LABWHC1 10:39
PROVIDERS: ATTEND Internal Medicine Interventional Cardiology
DX: R06.09 Other forms of dyspnea (principal)
CPT/HCPCS: 36415; 80051; 82565; 83880; 84520

== ENCOUNTER → 2023-05-28 | Outpatient (CLI) | payer MEDICARE ==
--- NOTE | 2023-05-28 13:13 | XR ---
EXAMINATION TYPE: XR chest 2V DATE OF EXAM: 05/28/2023 11:47 AM CLINICAL INDICATION:Male, 77 years old with history of [id number] UPPER RESP INFECTION; PHH COMPARISON: Chest radiographs from 06/14/2022 TECHNIQUE: XR chest 2V Frontal and lateral views of the chest. FINDINGS: Lungs/Pleura: There is no evidence of pleural effusion, focal consolidation, or pneumothorax. Pulmonary vascularity: Unremarkable. Heart/mediastinum: Cardiomediastinal silhouette is unremarkable. Atherosclerotic calcifications are seen in the aorta. Musculoskeletal: No acute osseous pathology. Other findings: None IMPRESSION: No acute cardiopulmonary disease/process.
== END | disposition home or self-care (01) ==
LOC: RADXRMAIN 11:36
PROVIDERS: ATTEND Physician Assistant
DX: J06.9 Acute upper respiratory infection, unspecified (principal)
CPT/HCPCS: 71046

== ENCOUNTER 2023-07-25 12:01 | Emergency (ER) | payer MEDICARE ==
[2023-07-25 12:19] VITALS: TEMP 98
[2023-07-25 12:46] LABS: Glucose,Whole Blood 158 mg/dL (70-110)
[2023-07-25 13:10] VITALS: RESP 16
[2023-07-25] MEDS: SODIUM CHLORIDE 0.9% 500 ML 500 ML IV ONE (13:20)
[2023-07-25 13:51] LABS: Basophils # (A) 0.1 k/uL (0-0.2); Basophils % (A) 1 %; Eosinophils # (A) 0.3 k/uL (0-0.7); Eosinophils % (A) 3 %; HCT 42.7 % (39.0-53.0); HGB 14.2 gm/dL (13.0-17.5); Lymphocytes # (A) 1.5 k/uL (1.0-4.8); Lymphocytes % (A) 16 %; MCH 31.5 pg (25.0-35.0); MCHC 33.3 g/dL (31.0-37.0); MCV 94.7 fL (80.0-100.0); Mean Platelet Volume 13.4; Monocytes # (A) 0.5 k/uL (0-1.0); Monocytes % (A) 5 %; Neutrophils # (A) 6.9 k/uL (1.3-7.7); Neutrophils % (A) 72 %; RBC 4.51 m/uL (4.30-5.90); RDW 12.9 % (11.5-15.5); WBC 9.5 k/uL (3.8-10.6)
[2023-07-25 13:52] LABS: ALT 14 U/L (4-49); AST 25 U/L (17-59); African American GFR (CKD) 81 (>60 ml/min/1.73 sqM); Albumin 4.1 g/dL (3.5-5.0); Alkaline Phosphatase 99 U/L (38-126); Anion Gap 7 mmol/L; Blood Urea Nitrogen 25 mg/dL (9-20); Calcium 8.9 mg/dL (8.4-10.2); Carbon Dioxide 22 mmol/L (22-30); Chloride 106 mmol/L (98-107); Glucose 158 mg/dL (74-99); Magnesium 1.7 mg/dL (1.6-2.3); Non-African American GFR(CKD) 70 (>60 ml/min/1.73 sqM); Potassium 4.2 mmol/L (3.5-5.1); Sodium 135 mmol/L (137-145); Total Bilirubin 1.1 mg/dL (0.2-1.3); Total Protein 6.2 g/dL (6.3-8.2)
[2023-07-25 14:19] LABS: Platelet Count 169 k/uL (150-450)
[2023-07-25 14:20] LABS: Large Platelets Present; RBC Morphology Normal
--- NOTE | 2023-07-25 16:03 | ED ---
General Adult HPI - General Chief complaint: Overdose Stated complaint: Overdose Time Seen by Provider: 07/25/23 12:10 Source: patient Mode of arrival: ambulatory Limitations: no limitations - History of Present Illness Initial comments: 77-year-old male presents emergency department after an accidental overdose. Patient has dementia. He arrives with his daughter. She states that the patient's pills were out on the counter and she encouraged him to take them as she thought he had forgot to take them this morning. It was then realized that the patient had taken double doses of his medications. These medications include flecainide, Eliquis, Lasix and rivastigmine. Ingestion happened at 9:45 AM. Patient is feeling lightheaded and nauseated. Denies any chest pain. No headaches or visual changes. No vomiting. No confusion. No other alleviating, precipitating or modifying factors - Related Data Home Medications Medication Instructions Recorded Confirmed Flecainide Acetate [Tambocor] 100 mg PO BID 12/17/19 07/25/23 Albuterol Sulfate [Ventolin HFA] 2 puff INHALATION RT-Q6H PRN 06/13/22 07/25/23 dilTIAZem HCL [Cartia Xt] 120 mg PO HS 06/13/22 07/25/23 Anakinra [Kineret] 100 mg SQ DIRECTED 07/25/23 07/25/23 Budesonide/Formoterol Fumarate 2 puff INHALATION RT-BID 07/25/23 07/25/23 [Breyna 160-4.5 Mcg Inhaler] Cholecalciferol (Vitamin D3) 50 mcg PO DAILY 07/25/23 07/25/23 [Vitamin D3 (50 Mcg = 2000 Iu)] Choline-Inositol 250mg 250 mg PO DAILY 07/25/23 07/25/23 Furosemide [Lasix] 20 mg PO BID 07/25/23 07/25/23 Glucosamine Sulfate 500 mg PO BID 07/25/23 07/25/23 Krill Oil 500mg 500 mg PO DAILY 07/25/23 07/25/23 Magnesium Glycinate 400mg 400 mg PO DAILY 07/25/23 07/25/23 Melatonin 3 mg PO HS PRN 07/25/23 07/25/23 Meloxicam [Mobic] 7.5 mg PO DIRECTED 07/25/23 07/25/23 Nutritional Yeast B Vitamins 1 cap PO DAILY 07/25/23 07/25/23 Supplement Quercetin-Bromelain 800mg-165mg 1 cap PO Q48H 07/25/23 07/25/23 Rivastigmine Tartrate [Exelon] 3 mg PO BID 07/25/23 07/25/23 Spironolactone [Aldactone] 25 mg PO DAILY 07/25/23 07/25/23 Turmeric Root Extract [Turmeric] 500 mg PO DAILY 07/25/23 07/25/23 Previous Rx's Medication Instructions Recorded Apixaban [Eliquis] 5 mg PO BID #60 tab 03/05/19 Allergies Allergy/AdvReac Type Severity Reaction Status Date / Time Penicillins Allergy Severe Rash/Hives Verified 07/25/23 15:59 over entire body anidulafungin Allergy Chest Verified 07/25/23 15:59 Pain/Severe Arm pain with infusion cefepime Allergy Rash/Hives Verified 07/25/23 15:59 benzonatate AdvReac Dyspnea Verified 07/25/23 15:59 [From Harper Yanez] Review of Systems ROS Statement: Those systems with pertinent positive or pertinent negative responses have been documented in the HPI. ROS Other: All systems not noted in ROS Statement are negative. Past Medical History Past Medical History: Atrial Fibrillation, Cancer, Osteoarthritis (OA) Additional Past Medical History / Comment(s): Mantle Lymphoma, Basal Cell Carcinoma Oct 2012 (in remission), hx Bronchitis. aortic aneurysm History of Any Multi-Drug Resistant Organisms: None Reported Past Surgical History: Hernia Repair, Joint Replacement Additional Past Surgical History / Comment(s): Removal of skin cancer, bone marrow transplant, right knee replacement Past Anesthesia/Blood Transfusion Reactions: No Reported Reaction Past Psychological History: No Psychological Hx Reported Smoking Status: Never smoker Past Alcohol Use History: None Reported Past Drug Use History: None Reported - Past Family History Brother(s) Family Medical History: Cancer Additional Family Medical History / Comment(s): . Father Family Medical History: No Reported History Additional Family Medical History / Comment(s): Father was healthy and lived to be 95 yrs old. Mother Family Medical History: Vascular Disorder Additional Family Medical History / Comment(s): Mother at the age of 74 yrs from a ruptured aortic aneurysm. Son(s) Additional Family Medical History / Comment(s): Patient has 2 sons with no major medical problems. Patient doesn't have any sisters. General Exam Limitations: no limitations General appearance: alert, in no apparent distress Head exam: Present: atraumatic, normocephalic, normal inspection Eye exam: Present: normal appearance, PERRL, EOMI. Absent: scleral icterus, conjunctival injection, periorbital swelling ENT exam: Present: normal exam, mucous membranes moist Neck exam: Present: normal inspection. Absent: tenderness, meningismus, lymphadenopathy Respiratory exam: Present: normal lung sounds bilaterally. Absent: respiratory distress, wheezes, rales, rhonchi, stridor Cardiovascular Exam: Present: regular rate, normal rhythm, normal heart sounds. Absent: systolic murmur, diastolic murmur, rubs, gallop, clicks GI/Abdominal exam: Present: soft, normal bowel sounds. Absent: distended, tenderness, guarding, rebound, rigid Extremities exam: Present: normal inspection, full ROM, normal capillary refill. Absent: tenderness, pedal edema, joint swelling, calf tenderness Back exam: Present: normal inspection Neurological exam: Present: alert, oriented X3, CN II-XII intact Psychiatric exam: Present: normal affect, normal mood Skin exam: Present: warm, dry, intact, normal color. Absent: rash Course Vital Signs 07/25/23 07/25/23 07/25/23 12:06 12:08 12:55 Temperature 98 F Pulse Rate 74 64 Pulse Rate [ 52 L Machine Brush Maker ] Respiratory 20 16 Rate Blood Pressure 111/66 122/68 O2 Sat by Pulse 98 100 Oximetry 07/25/23 07/25/23 07/25/23 12:59 13:08 14:00 Temperature Pulse Rate 62 68 60 Pulse Rate [ Machine Brush Maker ] Respiratory 16 16 16 Rate Blood Pressure 122/71 123/71 O2 Sat by Pulse 100 99 99 Oximetry 07/25/23 07/25/23 07/25/23 15:00 15:26 16:00 Temperature Pulse Rate 55 L 61 64 Pulse Rate [ Machine Brush Maker ] Respiratory 16 16 16 Rate Blood Pressure 121/76 124/66 123/74 O2 Sat by Pulse 99 98 96 Oximetry Medical Decision Making - Medical Decision Making Was pt. sent in by a medical professional or institution (, PA, DRIVER TRAINEE, urgent care, hospital, or alf...) When possible be specific @ -No Did you speak to anyone other than the patient for history (EMS, parent, family, police, friend...)? What history was obtained from this source @ -Spoke with the patient's daughter Did you review nursing and triage notes (agree or disagree)? Why? @ -I reviewed and agree with nursing and triage notes Were old charts reviewed (outside hosp., previous admission, EMS record, old EKG, old radiological studies, urgent care reports/EKG's, alf records)? Report findings @ -No old charts were reviewed Differential Diagnosis (chest pain, altered mental status, abdominal pain women, abdominal pain men, vaginal bleeding, weakness, fever, dyspnea, syncope, headache, dizziness, GI bleed, back pain, seizure, CVA, palpatations, mental health, musculoskeletal)? @ -Differential Dizziness: Benign paroxysmal positional Vertigo, Menieres disease, otitis media, acoustic neuroma, vertebrobasilar insufficiency, cerebellar stroke, encephalitis, hypo volemic, arrhythmia, coronary artery syndrome, anemia, this is not meant to be an all-inclusive list EKG interpreted by me (3pts min.). @ - Yes completed at 1213 demonstrates sinus rhythm with a rate of 70. VA interval 197. QRS 137. QTc of 514. No acute ST segment elevations or depressions Yes completed at 1549 demonstrates sinus bradycardia with a rate of 59. VA interval 193. QRS 137. QTc of 477. No acute ST segment elevations or depressions X-rays interpreted by me (1pt min.). @ -None done CT interpreted by me (1pt min.). @ -None done U/S interpreted by me (1pt. min.). @ -None done What testing was considered but not performed or refused? (CT, X-rays, U/S, labs)? Why? @ -None What meds were considered but not given or refused? Why? @ -None Did you discuss the management of the patient with other professionals (professionals i.e. , PA, DRIVER TRAINEE, lab, RT, psych nurse, social insurance analyst, certified medical aide, teacher, chemical instrumentation officer, shoe parts caser)? Give summary @ -Spoke with poison control who states that the patient should be monitored for 6 hours after ingestion Was smoking cessation discussed for >3mins.? @ -No Was critical care preformed (if so, how long)? @ -No Were there social determinants of health that impacted care today? How? (Homelessness, low income, unemployed, alcoholism, drug addiction, transportation, low edu. Level, literacy, decrease access to med. care, [facility], rehab)? @ -No Was there de-escalation of care discussed even if they declined (Discuss DNR or withdrawal of care, Hospice)? DNR status @ -No What co-morbidities impacted this encounter? (DM, HTN, Smoking, COPD, CAD, Cancer, CVA, ARF, Chemo, Hep., AIDS, mental health diagnosis, sleep apnea, morbid obesity)? @ -Dementia, A-fib Was patient admitted / discharged? Hospital course, mention meds given and route, prescriptions, significant lab abnormalities, going to OR and other pertinent info. @ -Upon arrival patient seen and evaluated in room 25. Thorough history and physical exam was performed. Patient placed on continuous pulse ox and cardiac monitoring. Twelve-lead EKG is obtained. Laboratory studies are conducted. We called and spoke with poison control. Recommends that the patient be monitored for 6 hours after ingestion. Patient is monitored for this amount of time and remains asymptomatic. He was given some intravenous fluids. Patient feels much better and is comfortable with discharge home. Patient will not take his nighttime dose of these medications. Restart medications tomorrow as directed. Return for any new or worsening symptoms. Patient agreeable to plan was discharged in stable condition Undiagnosed new problem with uncertain prognosis? @ -No Drug Therapy requiring intensive monitoring for toxicity (Heparin, Nitro, Insulin, Cardizem)? @ -No Were any procedures done? @ -No Diagnosis/symptom? @ -Acute accidental prescription medication overdose Acute, or Chronic, or Acute on Chronic? @ -Acute Uncomplicated (without systemic symptoms) or Complicated (systemic symptoms)? @ -Complicated Side effects of treatment? @ -No Exacerbation, Progression, or Severe Exacerbation? @ -No Poses a threat to life or bodily function? How? (Chest pain, [place], [place], pneumonia, PE, COPD, DKA, ARF, appy, cholecystitis, CVA, Diverticulitis, Homicidal, Suicidal, threat to staff... and all critical care pts) @ -No - Lab Data Result diagrams: 07/25/23 12:50 07/25/23 12:50 Lab Results 07/25/23 07/25/23 07/25/23 Range/Units 12:44 12:50 12:50 WBC 9.5 (3.8-10.6) k/uL RBC 4.51 (4.30-5.90) m/uL Hgb 14.2 (13.0-17.5) gm/dL Hct 42.7 (39.0-53.0) % MCV 94.7 (80.0-100.0) fL MCH 31.5 (25.0-35.0) pg MCHC 33.3 (31.0-37.0) g/dL RDW 12.9 (11.5-15.5) % Plt Count 169 (150-450) k/uL MPV 13.4 Neutrophils % 72 % Lymphocytes % 16 % Monocytes % 5 % Eosinophils % 3 % Basophils % 1 % Neutrophils # 6.9 (1.3-7.7) k/uL Lymphocytes # 1.5 (1.0-4.8) k/uL Monocytes # 0.5 (0-1.0) k/uL Eosinophils # 0.3 (0-0.7) k/uL Basophils # 0.1 (0-0.2) k/uL Manual Slide Review Performed Large Platelets Present RBC Morphology Normal Sodium 135 L (137-145) mmol/L Potassium 4.2 (3.5-5.1) mmol/L Chloride 106 (98-107) mmol/L Carbon Dioxide 22 (22-30) mmol/L Anion Gap 7 mmol/L BUN 25 H (9-20) mg/dL Creatinine 1.04 (0.66-1.25) mg/dL Est GFR (CKD-EPI)AfAm 81 (>60 ml/min/1.73 sqM) Est GFR (CKD-EPI)NonAf 70 (>60 ml/min/1.73 sqM) Glucose 158 H (74-99) mg/dL POC Glucose (mg/dL) 158 H (70-110) mg/dL POC Glu Cardiopulmonary Technician And Eeg Tech ID Vagts, Suzin Plasma Lactic Acid Evan (0.7-2.0) mmol/L Calcium 8.9 (8.4-10.2) mg/dL Magnesium 1.7 (1.6-2.3) mg/dL Total Bilirubin 1.1 (0.2-1.3) mg/dL AST 25 (17-59) U/L ALT 14 (4-49) U/L Alkaline Phosphatase 99 (38-126) U/L Troponin I (0.000-0.034) ng/mL Total Protein 6.2 L (6.3-8.2) g/dL Albumin 4.1 (3.5-5.0) g/dL 07/25/23 07/25/23 Range/Units 12:50 14:34 WBC (3.8-10.6) k/uL RBC (4.30-5.90) m/uL Hgb (13.0-17.5) gm/dL Hct (39.0-53.0) % MCV (80.0-100.0) fL MCH (25.0-35.0) pg MCHC (31.0-37.0) g/dL RDW (11.5-15.5) % Plt Count (150-450) k/uL MPV Neutrophils % % Lymphocytes % % Monocytes % % Eosinophils % % Basophils % % Neutrophils # (1.3-7.7) k/uL Lymphocytes # (1.0-4.8) k/uL Monocytes # (0-1.0) k/uL Eosinophils # (0-0.7) k/uL Basophils # (0-0.2) k/uL Manual Slide Review Large Platelets RBC Morphology Sodium (137-145) mmol/L Potassium (3.5-5.1) mmol/L Chloride (98-107) mmol/L Carbon Dioxide (22-30) mmol/L Anion Gap mmol/L BUN (9-20) mg/dL Creatinine (0.66-1.25) mg/dL Est GFR (CKD-EPI)AfAm (>60 ml/min/1.73 sqM) Est GFR (CKD-EPI)NonAf (>60 ml/min/1.73 sqM) Glucose (74-99) mg/dL POC Glucose (mg/dL) (70-110) mg/dL POC Glu Cardiopulmonary Technician And Eeg Tech ID Plasma Lactic Acid Evan 0.8 (0.7-2.0) mmol/L Calcium (8.4-10.2) mg/dL Magnesium (1.6-2.3) mg/dL Total Bilirubin (0.2-1.3) mg/dL AST (17-59) U/L ALT (4-49) U/L Alkaline Phosphatase (38-126) U/L Troponin I <0.012 (0.000-0.034) ng/mL Total Protein (6.3-8.2) g/dL Albumin (3.5-5.0) g/dL Disposition Clinical Impression: Accidental drug overdose Disposition: HOME SELF-CARE Condition: Stable Instructions (If sedation given, give patient instructions): Adult Overdose (ED) Additional Instructions: Do not take any of your nighttime medications. Resume your medications as directed tomorrow Is patient prescribed a controlled substance at d/c from ED?: No Referrals: Hemanth Meza MD [Primary Care Provider] - 1-2 days Time of Disposition: 16:03
[2023-07-25 16:32] VITALS: BP 123/74; PULSE 64
== END 2023-07-25 16:13 | disposition home or self-care (01) ==
LOC: EC 12:01
DX: T45.511A Poisoning by anticoagulants, accidental (unintentional), initial encounter (principal); F03.90 Unspecified dementia, unspecified severity, without behavioral disturbance, psychotic disturbance, mood disturbance, and anxiety; I48.91 Unspecified atrial fibrillation; Z88.0 Allergy status to penicillin; Z88.1 Allergy status to other antibiotic agents; Z88.3 Allergy status to other anti-infective agents; Z88.8 Allergy status to other drugs, medicaments and biological substances
CPT/HCPCS: 36415; 80053; 83605; 83735; 84484; 85025; 93005; 96360; 99284

== ENCOUNTER 2024-08-22 12:48 | Emergency (ER) | payer MEDICARE ==
[2024-08-22 13:10] VITALS: BP 123/66; PULSE 68; RESP 16; TEMP 97.6
--- NOTE | 2024-08-22 13:35 | XR ---
EXAMINATION TYPE: XR tibia fibula RT DATE OF EXAM: 08/22/2024 1:31 PM COMPARISON: None CLINICAL INDICATION: Male, 78 years old with history of fall; PHH, pain TECHNIQUE: XR tibia fibula RT; examined in AP and lateral projections. FINDINGS: Total knee arthroplasty changes hardware appears intact. No evidence of any acute osseous p athology, joint dislocation, or soft tissue swelling is noted. IMPRESSION: Postsurgical changes without evidence of fracture. Knee arthroplasty is intact. [facility], , 08/22/2024 1:33 PM
--- NOTE | 2024-08-22 14:29 | ED ---
General Adult HPI - General Chief complaint: Fall Stated complaint: R leg injury Time Seen by Provider: 08/22/24 13:30 Source: patient, RN notes reviewed Mode of arrival: wheelchair Limitations: no limitations - History of Present Illness Initial comments: 78-year-old male presents to the emergency department for evaluation of right leg pain. Patient states that he took a fall today injuring his right leg. He states that he is on blood thinners and is concerned that he has a hematoma. He denies any head injury. Denies any other injury. He is able to ambulate but is painful. - Related Data Home Medications Medication Instructions Recorded Confirmed Flecainide Acetate [Tambocor] 100 mg PO BID 12/17/19 07/25/23 Albuterol Sulfate [Ventolin HFA] 2 puff INHALATION RT-Q6H PRN 06/13/22 07/25/23 dilTIAZem HCL [Cartia Xt] 120 mg PO HS 06/13/22 07/25/23 Anakinra [Kineret] 100 mg SQ DIRECTED 07/25/23 07/25/23 Budesonide/Formoterol Fumarate 2 puff INHALATION RT-BID 07/25/23 07/25/23 [Breyna 160-4.5 Mcg Inhaler] Cholecalciferol (Vitamin D3) 50 mcg PO DAILY 07/25/23 07/25/23 [Vitamin D3 (50 Mcg = 2000 Iu)] Choline-Inositol 250mg 250 mg PO DAILY 07/25/23 07/25/23 Furosemide [Lasix] 20 mg PO BID 07/25/23 07/25/23 Glucosamine Sulfate 500 mg PO BID 07/25/23 07/25/23 Krill Oil 500mg 500 mg PO DAILY 07/25/23 07/25/23 Magnesium Glycinate 400mg 400 mg PO DAILY 07/25/23 07/25/23 Melatonin 3 mg PO HS PRN 07/25/23 07/25/23 Meloxicam [Mobic] 7.5 mg PO DIRECTED 07/25/23 07/25/23 Nutritional Yeast B Vitamins 1 cap PO DAILY 07/25/23 07/25/23 Supplement Quercetin-Bromelain 800mg-165mg 1 cap PO Q48H 07/25/23 07/25/23 Rivastigmine Tartrate [Exelon] 3 mg PO BID 07/25/23 07/25/23 Spironolactone [Aldactone] 25 mg PO DAILY 07/25/23 07/25/23 Turmeric Root Extract [Turmeric] 500 mg PO DAILY 07/25/23 07/25/23 Previous Rx's Medication Instructions Recorded Apixaban [Eliquis] 5 mg PO BID #60 tab 03/05/19 Allergies Allergy/AdvReac Type Severity Reaction Status Date / Time Penicillins Allergy Severe Rash/Hives Verified 07/25/23 15:59 over entire body anidulafungin Allergy Chest Verified 07/25/23 15:59 Pain/Severe Arm pain with infusion cefepime Allergy Rash/Hives Verified 07/25/23 15:59 benzonatate AdvReac Dyspnea Verified 07/25/23 15:59 [From Harper Yanez] Review of Systems ROS Statement: Those systems with pertinent positive or pertinent negative responses have been documented in the HPI. ROS Other: All systems not noted in ROS Statement are negative. Past Medical History Past Medical History: Atrial Fibrillation, Coronary Artery Disease (CAD), Cancer, Myocardial Infarction ([place]), Osteoarthritis (OA) Additional Past Medical History / Comment(s): Mantle Lymphoma, Basal Cell Carcinoma Oct 2012 (in remission), hx Bronchitis. aortic aneurysm History of Any Multi-Drug Resistant Organisms: None Reported Past Surgical History: Hernia Repair, Joint Replacement Additional Past Surgical History / Comment(s): Removal of skin cancer, bone marrow transplant, right knee replacement Past Anesthesia/Blood Transfusion Reactions: No Reported Reaction Past Psychological History: No Psychological Hx Reported Smoking Status: Never smoker Past Alcohol Use History: None Reported Past Drug Use History: None Reported - Past Family History Brother(s) Family Medical History: Cancer Additional Family Medical History / Comment(s): . Father Family Medical History: No Reported History Additional Family Medical History / Comment(s): Father was healthy and lived to be 95 yrs old. Mother Family Medical History: Vascular Disorder Additional Family Medical History / Comment(s): Mother at the age of 74 yrs from a ruptured aortic aneurysm. Son(s) Additional Family Medical History / Comment(s): Patient has 2 sons with no major medical problems. Patient doesn't have any sisters. General Exam Limitations: no limitations General appearance: alert, in no apparent distress Head exam: Present: atraumatic, normocephalic, normal inspection Eye exam: Present: normal appearance, PERRL, EOMI. Absent: scleral icterus, conjunctival injection, periorbital swelling Neck exam: Present: normal inspection, full ROM. Absent: tenderness, meningismus, lymphadenopathy Respiratory exam: Present: normal lung sounds bilaterally. Absent: respiratory distress, wheezes, rales, rhonchi, stridor Cardiovascular Exam: Present: regular rate, normal rhythm, normal heart sounds. Absent: systolic murmur, diastolic murmur, rubs, gallop, clicks Extremities exam: Present: normal inspection, full ROM, tenderness (Hematoma over the right calf which is tender to palpate), normal capillary refill. Absent: pedal edema, joint swelling, calf tenderness Neurological exam: Present: alert, oriented X3 Psychiatric exam: Present: normal affect, normal mood Skin exam: Present: warm, dry, intact, normal color. Absent: rash Course Vital Signs 08/22/24 13:07 Temperature 97.6 F Pulse Rate 68 Respiratory 16 Rate Blood Pressure 123/66 O2 Sat by Pulse 97 Oximetry Medical Decision Making - Medical Decision Making Was pt. sent in by a medical professional or institution (, PA, DIRECTOR OF VIDEO ANALYTICS, urgent care, hospital, or senior care...) When possible be specific @ -No Did you speak to anyone other than the patient for history (EMS, parent, family, police, friend...)? What history was obtained from this source @ -No Did you review nursing and triage notes (agree or disagree)? Why? @ -I reviewed and agree with nursing and triage notes Were old charts reviewed (outside hosp., previous admission, EMS record, old EKG, old radiological studies, urgent care reports/EKG's, senior care records)? Report findings @ -No old charts were reviewed Differential Diagnosis (chest pain, altered mental status, abdominal pain women, abdominal pain men, vaginal bleeding, weakness, fever, dyspnea, syncope, headac he, dizziness, GI bleed, back pain, seizure, CVA, palpatations, mental health, musculoskeletal)? @ -Differential Musculoskeletal Muscular strain, contusion, ligament sprain, fracture, arthritis, septic arthritis, bursitis, cellulitis, muscle spasm, nerve compression, DVT, arterial occlusion, herpes zoster, electrolyte abnormality, tumor.... This is not meant to be in all inclusive list EKG interpreted by me (3pts min.). @ -None X-rays interpreted by me (1pt min.). @ -X-ray of the right leg revealed no evidence of acute fracture CT interpreted by me (1pt min.). @ -None done U/S interpreted by me (1pt. min.). @ -None done What testing was considered but not performed or refused? (CT, X-rays, U/S, labs)? Why? @ -None What meds were considered but not given or refused? Why? @ -None Did you discuss the management of the patient with other professionals (professionals i.e. DrAna María, PA, DIRECTOR OF VIDEO ANALYTICS, lab, RT, psych nurse, transition social worker, scientist, teacher, network security officer, director case)? Give summary @ -No Was smoking cessation discussed for >3mins.? @ -No Was critical care preformed (if so, how long)? @ -No Were there social determinants of health that impacted care today? How? (Homelessness, low income, unemployed, alcoholism, drug addiction, transportation, low edu. Level, literacy, decrease access to med. care, long-term, rehab)? @ -No Was there de-escalation of care discussed even if they declined (Discuss DNR or withdrawal of care, Hospice)? DNR status @ -No What co-morbidities impacted this encounter? (DM, HTN, Smoking, COPD, CAD, Cancer, CVA, ARF, Chemo, Hep., AIDS, mental health diagnosis, sleep apnea, morbid obesity)? @ -None Was patient admitted / discharged? Hospital course, mention meds given and route, prescriptions, significant lab abnormalities, going to OR and other pe rtinent info. @ -Discharge. Patient presented emergency department for evaluation of right leg injury. X-rays obtained revealed no evidence of acute fracture. Patient does have a hematoma present I advised compression icing and elevating. He is understanding and agreeable with this plan. Patient stable at time of discharge. Case discussed with Dr. Vaca. Undiagnosed new problem with uncertain prognosis? @ -No Drug Therapy requiring intensive monitoring for toxicity (Heparin, Nitro, Insulin, Cardizem)? @ -No Were any procedures done? @ -No Diagnosis/symptom? @ -Leg contusion, hematoma Acute, or Chronic, or Acute on Chronic? @ -Acute Uncomplicated (without systemic symptoms) or Complicated (systemic symptoms)? @ -Uncomplicated Side effects of treatment? @ -No Exacerbation, Progression, or Severe Exacerbation? @ -No Poses a threat to life or bodily function? How? (Chest pain, [place], [place], pneumonia, PE, COPD, DKA, ARF, appy, cholecystitis, CVA, Diverticulitis, Homicidal, Rodriguez icidal, threat to staff... and all critical care pts) @ -No Disposition Clinical Impression: Hematoma of lower leg, Fall Disposition: HOME SELF-CARE Condition: Stable Instructions (If sedation given, give patient instructions): Fall Prevention for Older Adults (ED), Hematoma (ED) Additional Instructions: Please rest, ice, elevate the leg. Keep compression on the area. Follow up with your doctor. Return to the emergency department for new or worsening symptoms. Is patient prescribed a controlled substance at d/c from ED?: No Referrals: Hemanth Meza MD [Primary Care Provider] - 1-2 days
== END 2024-08-22 14:46 | disposition home or self-care (01) ==
LOC: EC 12:48
DX: S80.11XA Contusion of right lower leg, initial encounter (principal); Z88.0 Allergy status to penicillin; Z88.1 Allergy status to other antibiotic agents; Z88.3 Allergy status to other anti-infective agents; Z88.8 Allergy status to other drugs, medicaments and biological substances; W19.XXXA Unspecified fall, initial encounter
CPT/HCPCS: 99283